=== PATIENT | female | born 1950 | race Caucasian/White ===

== ENCOUNTER 2017-06-07 18:35 | Inpatient (IN) | payer OTHER ==
--- OUTSIDE RECORDS SUMMARY | 2017-06-07 18:37 | XMS REPORT ---
:1950 [facility] Address [address] [place] [address] Care Team Providers Name Role Phone JILLIANMorena Unavailable Unavailable Problems This patient has no known problems. Allergies, Adverse Reactions, Alerts This patient has no known allergies or adverse reactions. Medications This patient has no known medications. Results Test Description Test Time Test Comments Text Results Atomic Results Result Comments BUN 2017-04-18 14:55:00 Test Item Value Reference Range Comments BLOOD UREA NITROGEN (BEAKER) (test zcsi=160) 11 mg/dL 7- [id number] 14:55:00 Test Item Value Reference Range Comments CREATININE (BEAKER) (test 0.65 mg/dL 0.57-1.25 knhi=795) EGFR (BEAKER) (test 91 mL/min/1.73 sq m ESTIMATED GFR IS NOT rlpp=3551) ACCURATE CREATININE CLEARANCE IN PREDICTING GLOMERULAR FILTRATION RATE. ESTIMATED GFR IS NOT APPLICABLE FOR DIALYSIS PATIENTS. BUN AND [id number] 15:59:00 Test Item Value Reference Range Comments BLOOD UREA NITROGEN 10 mg/dL 7-21 (BEAKER) (test ojox=632) CREATININE (BEAKER) (test 0.65 mg/dL 0.57-1.25 sqvw=057) EGFR (BEAKER) (test 91 mL/min/1.73 sq m ESTIMATED GFR IS NOT ovrh=6576) ACCURATE CREATININE CLEARANCE IN PREDICTING GLOMERULAR FILTRATION RATE. ESTIMATED GFR IS NOT APPLICABLE FOR DIALYSIS PATIENTS. [id number] 14:45:00 Test Item Value Reference Range Comments BLOOD UREA NITROGEN (BEAKER) (test jwgo=413) 13 mg/dL 7-21 [id number] 14:45:00 Test Item Value Reference Range Comments CREATININE (BEAKER) (test 0.74 mg/dL 0.57-1.25 bqtg=431) EGFR (BEAKER) (test 79 mL/min/1.73 sq m ESTIMATED GFR IS NOT kahl=2065) ACCURATE CREATININE CLEARANCE IN PREDICTING GLOMERULAR FILTRATION RATE. ESTIMATED GFR IS NOT APPLICABLE FOR DIALYSIS PATIENTS. BUN AND [id number] 14:55:00 Test Item Value Reference Range Comments BLOOD UREA NITROGEN 13 mg/dL 7-21 (BEAKER) (test fyoj=858) CREATININE (BEAKER) (test 0.69 mg/dL 0.57-1.25 kvjk=560) EGFR (BEAKER) (test 85 mL/min/1.73 sq m ESTIMATED GFR IS NOT pjaf=4926) ACCURATE CREATININE CLEARANCE IN PREDICTING GLOMERULAR FILTRATION RATE. ESTIMATED GFR IS NOT APPLICABLE FOR DIALYSIS PATIENTS. [id number] 17:24:00 Test Item Value Reference Range Comments BLOOD UREA NITROGEN (BEAKER) (test ztyg=417) 12 mg/dL 7-21 [id number] 17:24:00 Test Item Value Reference Range Comments CREATININE (BEAKER) (test 0.67 mg/dL 0.57-1.25 jxbp=377) EGFR (BEAKER) (test 89 mL/min/1.73 sq m ESTIMATED GFR IS NOT htlg=4926) ACCURATE CREATININE CLEARANCE IN PREDICTING GLOMERULAR FILTRATION RATE. ESTIMATED GFR IS NOT APPLICABLE FOR DIALYSIS PATIENTS.
[2017-06-07 19:32] LABS: Absolute Lymphocytes (CBC) 1.5 K/uL (0.7-4.9); Absolute Monocytes 0.8 K/uL (0.1-1.3); Absolute Neutrophil 6.7 K/uL (1.8-8.0); Basophils % 0.6 % (0-1.3); Eosinophils % 3.4 % (0-4.4); Hematocrit 47.3 % (36.0-45.0); Lymphocytes % 16.2 % (15.3-44.8); MCH 27.6 pg (27.0-35.0); MCV 85.6 fL (80-100); MPV 8.4 fL (7.6-11.3); Monocytes % 8.3 % (3.3-12.3); RBC Red Blood Cell Count 5.52 M/uL (3.86-4.86)
[2017-06-07 19:37] LABS: Protime INR 1.05
[2017-06-07] MEDS ORDERED: MAGNESIUM SULFATE 1 gm IVPB 1 GM/100 ML BAG IV ONE (19:47)
[2017-06-07 19:49] LABS: Bilirubin Direct 0.1 mg/dL (0-0.2); Bilirubin Total 0.6 mg/dL (0.3-1.2); Magnesium 1.6 mg/dL (1.8-2.5); Protein, Total 7.1 g/dL (6.0-8.3)
[2017-06-07] MEDS ORDERED: ALPRAZOLAM 0.25 MG TABLET PO PRN (19:49)
[2017-06-07] MEDS ORDERED: MORPHINE 4 MG/ML SYR IV PRN (19:49)
[2017-06-07] MEDS ORDERED: ACETAMINOPHEN 500 MG TAB PO PRN (19:49)
[2017-06-07] MEDS ORDERED: ENOXAPARIN 100 MG/ML SYR SQ ONE (19:54)
[2017-06-07] MEDS ORDERED: dilTIAZem HCl 50 MG/10 ML VIAL IV ONE ×2 (19:55→21:06)
[2017-06-07 19:56] LABS: Potassium 2.9 mEq/L (3.6-5.0)
[2017-06-07] MEDS ORDERED: PROPAFENONE HCL 150 MG TAB ONE (20:02)
[2017-06-07] MEDS ORDERED: DILTIAZEM HCL 60 MG TAB ONE (20:05)
--- NOTE | 2017-06-07 20:09 | ER ---
Nurse's Notes [facility] Name: Marlen Santacruz Age: 66 yrs Sex: Female : 1950 Arrival Date: 06/07/2017 Time: 18:36 Bed 2 Private MD: Caleb Patel H Diagnosis: Other chest pain;Atrial fibrillation and flutter;Essential (primary) hypertension;Hypomagnesemia;Hypokalemia;Unspecified combined systolic (congestive) and diastolic (congestive) heart failure;Hypoxemia Presentation: 06/07 18:44 Presenting complaint: Patient states: "this started about an hour ago, felt a little sg pressure in my chest, came and went, i checked my o2 and pulse and it 45 then 55, then at [facility] it was 155. Transition of care: patient was not received from another setting of care. Onset of symptoms was June 07, 2017. Care prior to arrival: None. 18:44 Method Of Arrival: Ambulatory sg 18:44 Acuity: LINDEN 2 tw2 Historical: - Allergies: 18:43 Ciprofloxacin; sg 18:43 Demerol; sg 18:43 Ibuprofen; sg 18:43 Iodine; sg 18:43 Keflex; sg 18:43 Levaquin; sg 18:43 Morphine; sg 18:43 PENICILLINS; sg 18:43 Sporanox; sg - Home Meds: 18:43 Anoro Ellipta 62.5-25 mcg/actuation inhalation dsdv 1 puff once daily [Active]; sg 18:58 Arava 20 mg Oral tab 1 tab once daily [Active]; aspirin 81 mg Oral TbEC 1 tab once tw2 daily [Active]; Atrovent Inhl twice a day [Active]; Atrovent Inhl [Active]; Brovana 15 mcg/2 mL inhalation nebu 2 mL 2 times per day [Active]; budesonide 0.25mg Oral CECX 2 caps twice a day [Active]; clonidine HCl 0.2 mg Oral tab 2 times per day [Active]; duloxetine 30 mg Oral cpDR 2 times per day [Active]; Esbriet 267 mg Oral cap 3 caps after meals [Active]; fluticasone inhalation [Active]; furosemide 40 mg Oral tab 1 tab once daily [Active]; immune globul,gamma(IgG)-sorb-IgA 0 to 50 mcg/mL intravenous every 4 wks [Active]; Lyrica 75 mg in the morning, 50 mg at night Oral [Active]; Magnesium Oxide Oral twice a day [Active]; Methadone 50 mg q6h Oral [Active]; metoprolol tartrate 25 mg Oral tab 1 tab 2 times per day [Active]; Nasonex 50 mcg/actuation Nasal spry once daily [Active]; Mucinex 1,200 mg Oral Ta12 twice a day [Active]; omeprazole 40 mg Oral cpDR 1 cap 2 times per day [Active]; potassium chloride 20 mEq Oral TbTQ 2 times per day [Active]; prednisone 10 mg Oral tab once daily [Active]; Pulmicort Inhl [Active]; sucralfate Oral [Active]; sulfasalazine 500 mg Oral tab 1 tab twice a day [Active]; Tylenol #3 Oral [Active]; valsartan 320 mg Oral tab 1 tab once daily [Active]; Vicodin ES Oral [Active]; - PMHx: 18:43 ADD/ADHD; Arthritis; Atrial Fib; COPD; Depression; GERD; Hypertension; Polyps Colon; sg Polyps Stomach; Rheumatoid Arthritis; Staph Infection Left Great Toe; - PSHx: 18:58 Tonsillectomy; Appendectomy; Cholecystectomy; Right Shoulder Fatty Tumor Removal; tw2 Ganglion Cyst Right Wrist; Hysterectomy; Right Breast Fatty Cyst Removal; Carpal Tunnel Repair; Carpal Tunnel; Right Knee; Back Surgery 2 Rods and 8 bolts placed; Right Rotator Cuff; Hammer Toes; Left Elbow; Right Wrist Plates; Total Knee Replacement Left; - Immunization history:: Adult Immunizations up to date. - Social history:: Smoking status: Patient/guardian denies using tobacco, the patient reports quitting approximately 15 years ago. - Family history:: not pertinent. Screenin:47 Abuse screen: Denies threats or abuse. Nutritional screening: No deficits noted. tw2 Tuberculosis screening: No symptoms or risk factors identified. Fall Risk None identified. Assessment: 18:45 Reassessment: provider notified of ekg Afib with RVR. tw2 18:46 General: Appears in no apparent distress. obese, Behavior is calm, cooperative, tw2 appropriate for age. Pain: Complains of pain in chest Pain does not radiate. Pain began 1 hour ago. Neuro: Level of Consciousness is awake, alert, obeys commands, Oriented to person, place, time, situation. Cardiovascular: Reports chest pain, Heart tones S1 S2 Capillary refill < 3 seconds. Respiratory: Airway is patent Respiratory effort is even, unlabored, Respiratory pattern is regular, symmetrical, Breath sounds are clear bilaterally. GI: Abdomen is round obese, Bowel sounds present X 4 quads. : No signs and/or symptoms were reported regarding the genitourinary system. EENT: No signs and/or symptoms were reported regarding the EENT system. Derm: Skin is intact, is fragile, is thin, Skin temperature is warm. Musculoskeletal: Range of motion: intact in all extremities. 19:46 Reassessment: Patient and/or family updated on plan of care and expected duration. Pain bs1 level reassessed. Patient is alert, oriented x 3, equal unlabored respirations, skin warm/dry/pink. Patient denies chest pain, patient still in A-fib w/ RVR, no apparent distress noted, 2L NC applied. Patient states "I use oxygen PRN at home 3L NC.". 20:46 Reassessment: Patient and/or family updated on plan of care and expected duration. Pain bs1 level reassessed. Patient is alert, oriented x 3, equal unlabored respirations, skin warm/dry/pink. Monitoring vitals, no apparent distress noted. 21:46 Reassessment: No changes from previously documented assessment. Patient and/or family bs1 updated on plan of care and expected duration. Pain level reassessed. Patient is alert, oriented x 3, equal unlabored respirations, skin warm/dry/pink. 22:10 Reassessment: Patient and/or family updated on plan of care and expected duration. Pain bs1 level reassessed. Patient is alert, oriented x 3, equal unlabored respirations, skin warm/dry/pink. Pending transfer to 4th floor. No further needs at this time. Vital Signs: 18:53 BP 124 / 104; Pulse 151; Resp 19; Pulse Ox 97% on R/A; tw2 19:21 Weight 108.86 kg; bs1 19:53 BP 100 / 64; Pulse 68; Pulse Ox 90% on R/A; bs1 20:51 BP 103 / 82; Pulse 110; Resp 21; Temp 97.7(O); Pulse Ox 97% on 2 lpm NC; bs1 21:50 BP 125 / 64; Pulse 71; Resp 18; Pulse Ox 91% on 2 lpm NC; bs1 22:00 BP 116 / 75; Pulse 76; Pulse Ox 96% on 2 lpm NC; bs1 ED Course: 18:36 Patient arrived in ED. rg4 18:36 Amanda TanyaRadhaRachid, DO is Private Physician. rg4 18:38 Jd Roque MD is Attending Physician. joan 18:39 Lynn Almonte RN is Primary Nurse. tw2 18:44 Arm band placed on. sg 18:45 Triage completed. sg 18:47 Bed in low position. Call light in reach. valve mechanic on. Pulse ox on. NIBP on. tw2 18:47 No provider procedures requiring assistance completed. Patient maintains SpO2 tw2 saturation greater than 95% on room air. 19:02 Report given to MANJINDER Moran. tw2 19:04 Primary Nurse role handed off by Lynn Almonte RN tw2 19:04 Inserted saline lock: 22 gauge in left antecubital area, using aseptic technique. Blood ae1 collected. 19:04 Inserted saline lock: 20 gauge in right forearm, using aseptic technique. ae1 19:19 Sandrine Mosley, MANJINDER is Primary Nurse. bs1 19:20 Ester Enriquez MD is Hospitalizing Provider. joan 19:39 Oxygen administration via nasal cannula \\T\\ 2L/min O2 via Pt requested O2. RA O2 sat 95%. aa1 19:59 Notified ED physician of a critical lab result(s). Potassium 2.9. lp1 20:07 X-ray completed. Portable x-ray completed in exam room. Patient tolerated procedure bb2 well. 22:37 Patient admitted, IV remains in place. intact. bs1 Administered Medications: 19:46 Drug: Lovenox 1 mg/kg Route: Sub-Q; Site: left lower abdomen; bs1 22:41 Follow up: Response: No adverse reaction bs1 19:46 Drug: Magnesium Sulfate 1 grams Route: IVPB; Infused Over: 1 hrs; Site: left bs1 antecubital; 22:40 Follow up: IV Status: Completed infusion bs1 19:50 Drug: Diltiazem 20 mg Route: IVP; Site: left antecubital; bs1 22:41 Follow up: Response: No adverse reaction bs1 19:58 Drug: Rythmol 225 mg Route: PO; bs1 22:41 Follow up: Response: No adverse reaction bs1 19:59 Drug: Diltiazem 30 mg Route: PO; bs1 22:40 Follow up: Response: No adverse reaction bs1 20:25 Drug: Aspirin 162 mg Route: PO; bs1 22:40 Follow up: Response: No adverse reaction bs1 20:25 Drug: Magnesium Oxide 400 mg Route: PO; bs1 22:39 Follow up: Response: No adverse reaction bs1 20:25 Drug: Potassium Chloride 40 mEq Route: PO; bs1 22:39 Follow up: Response: No adverse reaction bs1 20:25 Drug: Potassium Chloride 20 mEq Route: IV; Rate: per protocol; Site: right antecubital; bs1 22:38 Follow up: IV Status: Infusion continued upon admission bs1 20:25 Not Given (Duplicate Order): NS 0.9% with KCl 20 mEq/L 1000 ml IV at 125 ml/hr [facility] 20:25 Drug: NS 0.9% with KCl 20 mEq/L 1000 ml Route: IV; Rate: 50 ml/hr; Site: right bs1 antecubital; 22:37 Follow up: IV Status: Infusion continued upon admission bs1 21:04 Drug: Diltiazem 10 mg Route: IVP; Site: right forearm; bs1 22:38 Follow up: Response: No adverse reaction bs1 21:05 Drug: Digoxin 0.5 mg Route: IVP; Site: right forearm; bs1 22:38 Follow up: Response: No adverse reaction bs1 21:22 Drug: Lasix 40 mg Route: IVP; Site: right forearm; bs1 22:38 Follow up: Response: No adverse reaction bs1 Intake: 22:00 PO: 240ml; Total: 240ml. bs1 Output: 22:00 Urine: 200ml (Zuniga); Total: 200ml. bs1 Outcome: 19:21 Decision to Hospitalize by Provider. [facility] 22:36 Admitted to Tele accompanied by tech, via stretcher, with oxygen, with chart, Report bs1 called to MANJINDER Bennett 22:36 Condition: stable 22:46 Patient left the ED. bs1 Signatures: Tyler Fay RN RN sg Kern, Alissa, RN RN aa1 Jd Roque MD MD cha Pena, Laura RN RN lp1 Lynn Almonte RN RN tw2 Fidel Boothe RN RN ae1 Heydi Guerrero rg4 Sandrine Ragland bb2 Sandrine Mosley RN RN bs1 Corrections: (The following items were deleted from the chart) 18:52 18:44 Acuity: LINDEN 3 sg tw2 22:36 21:50 BP 125 / 64; Pulse 71bpm; Resp 18bpm; Pulse Ox 91%; bs1 bs1
--- NOTE | 2017-06-07 20:09 | EDPHYS ---
Physician Documentation [facility] Name: Marlen Santacruz Age: 66 yrs Sex: Female : 1950 Arrival Date: 06/07/2017 Time: 18:36 Bed 2 Private MD: Caleb Ptael H ED Physician Jd Roque HPI: 06/07 19:17 This 66 yrs old Female presents to ER via Ambulatory with complaints of Chest joan Pain, High Blood Pressure. 19:17 The patient or guardian reports chest pain that is located primarily in the substernal joan area. Onset: just prior to arrival. The pain does not radiate. Associated signs and symptoms: The patient has no apparent associated signs or symptoms. The chest pain is described as a heaviness. Duration: The patient or guardian reports a single episode, that is still ongoing. Severity of pain: At its worst the pain was mild in the emergency department the pain is unchanged. The patient has experienced similar episodes in the past, multiple times. Historical: - Allergies: 18:43 Ciprofloxacin; sg 18:43 Demerol; sg 18:43 Ibuprofen; sg 18:43 Iodine; sg 18:43 Keflex; sg 18:43 Levaquin; sg 18:43 Morphine; sg 18:43 PENICILLINS; sg 18:43 Sporanox; sg - Home Meds: 18:43 Anoro Ellipta 62.5-25 mcg/actuation inhalation dsdv 1 puff once daily [Active]; sg 18:58 Arava 20 mg Oral tab 1 tab once daily [Active]; aspirin 81 mg Oral TbEC 1 tab once tw2 daily [Active]; Atrovent Inhl twice a day [Active]; Atrovent Inhl [Active]; Brovana 15 mcg/2 mL inhalation nebu 2 mL 2 times per day [Active]; budesonide 0.25mg Oral CECX 2 caps twice a day [Active]; clonidine HCl 0.2 mg Oral tab 2 times per day [Active]; duloxetine 30 mg Oral cpDR 2 times per day [Active]; Esbriet 267 mg Oral cap 3 caps after meals [Active]; fluticasone inhalation [Active]; furosemide 40 mg Oral tab 1 tab once daily [Active]; immune globul,gamma(IgG)-sorb-IgA 0 to 50 mcg/mL intravenous every 4 wks [Active]; Lyrica 75 mg in the morning, 50 mg at night Oral [Active]; Magnesium Oxide Oral twice a day [Active]; Methadone 50 mg q6h Oral [Active]; metoprolol tartrate 25 mg Oral tab 1 tab 2 times per day [Active]; Nasonex 50 mcg/actuation Nasal spry once daily [Active]; Mucinex 1,200 mg Oral Ta12 twice a day [Active]; omeprazole 40 mg Oral cpDR 1 cap 2 times per day [Active]; potassium chloride 20 mEq Oral TbTQ 2 times per day [Active]; prednisone 10 mg Oral tab once daily [Active]; Pulmicort Inhl [Active]; sucralfate Oral [Active]; sulfasalazine 500 mg Oral tab 1 tab twice a day [Active]; Tylenol #3 Oral [Active]; valsartan 320 mg Oral tab 1 tab once daily [Active]; Vicodin ES Oral [Active]; - PMHx: 18:43 ADD/ADHD; Arthritis; Atrial Fib; COPD; Depression; GERD; Hypertension; Polyps Colon; sg Polyps Stomach; Rheumatoid Arthritis; Staph Infection Left Great Toe; - PSHx: 18:58 Tonsillectomy; Appendectomy; Cholecystectomy; Right Shoulder Fatty Tumor Removal; tw2 Ganglion Cyst Right Wrist; Hysterectomy; Right Breast Fatty Cyst Removal; Carpal Tunnel Repair; Carpal Tunnel; Right Knee; Back Surgery 2 Rods and 8 bolts placed; Right Rotator Cuff; Hammer Toes; Left Elbow; Right Wrist Plates; Total Knee Replacement Left; - Immunization history:: Adult Immunizations up to date. - Social history:: Smoking status: Patient/guardian denies using tobacco, the patient reports quitting approximately 15 years ago. - Family history:: not pertinent. ROS: 19:17 Constitutional: Negative for fever, chills, and weight loss, Eyes: Negative for injury, joan pain, redness, and discharge, ENT: Negative for injury, pain, and discharge, Neck: Negative for injury, pain, and swelling, Respiratory: Negative for shortness of breath, cough, wheezing, and pleuritic chest pain, Abdomen/GI: Negative for abdominal pain, nausea, vomiting, diarrhea, and constipation, Back: Negative for injury and pain, : Negative for injury, bleeding, discharge, and swelling, MS/Extremity: Negative for injury and deformity, Skin: Negative for injury, rash, and discoloration, Neuro: Negative for headache, weakness, numbness, tingling, and seizure, Psych: Negative for depression, anxiety, suicide ideation, homicidal ideation, and hallucinations, Allergy/Immunology: Negative for hives, rash, and allergies, Endocrine: Negative for neck swelling, polydipsia, polyuria, polyphagia, and marked weight changes, Hematologic/Lymphatic: Negative for swollen nodes, abnormal bleeding, and unusual bruising. 19:17 Cardiovascular: Positive for chest pain, palpitations. Exam: 19:17 Constitutional: This is a well developed, well nourished patient who is awake, alert, joan and in no acute distress. Head/Face: Normocephalic, atraumatic. Eyes: Pupils equal round and reactive to light, extra-ocular motions intact. Lids and lashes normal. Conjunctiva and sclera are non-icteric and not injected. Cornea within normal limits. Periorbital areas with no swelling, redness, or edema. ENT: Nares patent. No nasal discharge, no septal abnormalities noted. Tympanic membranes are normal and external auditory canals are clear. Oropharynx with no redness, swelling, or masses, exudates, or evidence of obstruction, uvula midline. Mucous membranes moist. Neck: Trachea midline, no thyromegaly or masses palpated, and no cervical lymphadenopathy. Supple, full range of motion without nuchal rigidity, or vertebral point tenderness. No Meningismus. Chest/axilla: Normal chest wall appearance and motion. Nontender with no deformity. No lesions are appreciated. Respiratory: Lungs have equal breath sounds bilaterally, clear to auscultation and percussion. No rales, rhonchi or wheezes noted. No increased work of breathing, no retractions or nasal flaring. Abdomen/GI: Soft, non-tender, with normal bowel sounds. No distension or tympany. No guarding or rebound. No evidence of tenderness throughout. Back: No spinal tenderness. No costovertebral tenderness. Full range of motion. Female : Normal external genitalia. Skin: Warm, dry with normal turgor. Normal color with no rashes, no lesions, and no evidence of cellulitis. MS/ Extremity: Pulses equal, no cyanosis. Neurovascular intact. Full, normal range of motion. Neuro: Awake and alert, GCS 15, oriented to person, place, time, and situation. Cranial nerves II-XII grossly intact. Motor strength 5/5 in all extremities. Sensory grossly intact. Cerebellar exam normal. Normal gait. Psych: Awake, alert, with orientation to person, place and time. Behavior, mood, and affect are within normal limits. 19:17 Cardiovascular: Rate: tachycardic, Rhythm: irregularly irregular, Pulses: Pulses are 4+ in bilateral radial, brachial, femoral, popliteal, posterior tibial and and dorsalis pedis arteries.. Heart sounds: normal, Edema: is not appreciated, JVD: is not appreciated. Vital Signs: 18:53 BP 124 / 104; Pulse 151; Resp 19; Pulse Ox 97% on R/A; tw2 19:21 Weight 108.86 kg; bs1 19:53 BP 100 / 64; Pulse 68; Pulse Ox 90% on R/A; bs1 20:51 BP 103 / 82; Pulse 110; Resp 21; Temp 97.7(O); Pulse Ox 97% on 2 lpm NC; bs1 21:50 BP 125 / 64; Pulse 71; Resp 18; Pulse Ox 91% on 2 lpm NC; bs1 22:00 BP 116 / 75; Pulse 76; Pulse Ox 96% on 2 lpm NC; bs1 MDM: 18:[address] [facility] 19:19 Data reviewed: vital signs, nurses notes, lab test result(s), EKG, radiologic studies, joan plain films. 06/07 18:54 Order name: Basic Metabolic Panel ae06/07 18:54 Order name: BNP 1 06/07 18:54 Order name: CBC with Diff 06/07 18:54 Order name: Ckmb ae06/07 18:54 Order name: CPK 06/07 18:54 Order name: LFT's ae06/07 18:54 Order name: Magnesium 06/07 18:54 Order name: PT-INR 06/07 18:54 Order name: Ptt, Activated 06/07 18:54 Order name: Troponin (emerg Dept Use Only) ae1 06/07 19:17 Order name: TSH [facility] 06/07 19:41 Order name: CBC with Automated Diff; Complete Time: 19:49 EDMS 06/07 19:42 Order name: Protime (+INR); Complete Time: 19:49 EDMS 06/07 19:42 Order name: PTT, Activated Partial Thromb; Complete Time: 19:49 EDMS 06/07 18:54 Order name: XRAY Chest (1 view) ae 06/07 19:43 Order name: Basic Metabolic Panel EDND 06/07 19:49 Order name: Liver (Hepatic) Function EDND 06/07 19:49 Order name: Creatine Phosphokinase EDND 06/07 19:49 Order name: Magnesium EDND 06/07 19:49 Order name: Troponin (Emerg Dept Use Only); Complete Time: 19:58 EDMS 06/07 19:53 Order name: CKMB Creatine Kinase MB EDND 06/07 19:53 Order name: BNP B-Type Natriuretic Peptide; Complete Time: 19:58 [facility] 06/07 20:17 Order name: RAD; Complete Time: 20:24 EDMS 06/07 20:38 Order name: Lipid Profile; Complete Time: 20:47 EDND 06/07 20:43 Order name: Urine Dipstick--Ancillary (enter results) mt 06/07 20:47 Order name: Lipase joan 06/07 20:49 Order name: Thyroid Stimulating Hormone EDND 06/07 21:08 Order name: Lipase [facility] 06/07 21:22 Order name: T4 Free [facility] 06/07 21:29 Order name: Urine Dipstick-Ancillary [facility] 06/07 18:54 Order name: EKG; Complete Time: 20:06 1 06/07 18:54 Order name: Cardiac monitoring; Complete Time: 19:00 ae1 06/07 18:54 Order name: EKG - Nurse/Tech; Complete Time: 19:00 ae1 06/07 18:54 Order name: IV Saline Lock; Complete Time: 19:00 ae1 06/07 18:54 Order name: Labs collected and sent; Complete Time: 19:00 ae1 06/07 18:54 Order name: O2 Per Protocol; Complete Time: 19:00 ae1 06/07 18:54 Order name: O2 Sat Monitoring; Complete Time: 19:00 ae1 06/07 18:54 Order name: Urine Dipstick-Ancillary (obtain specimen); Complete Time: 20:53 ae 06/07 20:47 Order name: Zuniga; Complete Time: 21:21 joan Administered Medications: 19:46 Drug: Lovenox 1 mg/kg Route: Sub-Q; Site: left lower abdomen; bs1 22:41 Follow up: Response: No adverse reaction bs1 19:46 Drug: Magnesium Sulfate 1 grams Route: IVPB; Infused Over: 1 hrs; Site: left bs1 antecubital; 22:40 Follow up: IV Status: Completed infusion bs1 19:50 Drug: Diltiazem 20 mg Route: IVP; Site: left antecubital; bs1 22:41 Follow up: Response: No adverse reaction bs1 19:58 Drug: Rythmol 225 mg Route: PO; bs1 22:41 Follow up: Response: No adverse reaction bs1 19:59 Drug: Diltiazem 30 mg Route: PO; bs1 22:40 Follow up: Response: No adverse reaction bs1 20:25 Drug: Aspirin 162 mg Route: PO; bs1 22:40 Follow up: Response: No adverse reaction bs1 20:25 Drug: Magnesium Oxide 400 mg Route: PO; bs1 22:39 Follow up: Response: No adverse reaction bs1 20:25 Drug: Potassium Chloride 40 mEq Route: PO; bs1 22:39 Follow up: Response: No adverse reaction bs1 20:25 Drug: Potassium Chloride 20 mEq Route: IV; Rate: per protocol; Site: right antecubital; bs1 22:38 Follow up: IV Status: Infusion continued upon admission bs1 20:25 Not Given (Duplicate Order): NS 0.9% with KCl 20 mEq/L 1000 ml IV at 125 ml/hr joan continuous 20:25 Drug: NS 0.9% with KCl 20 mEq/L 1000 ml Route: IV; Rate: 50 ml/hr; Site: right bs1 antecubital; 22:37 Follow up: IV Status: Infusion continued upon admission bs1 21:04 Drug: Diltiazem 10 mg Route: IVP; Site: right forearm; bs1 22:38 Follow up: Response: No adverse reaction bs1 21:05 Drug: Digoxin 0.5 mg Route: IVP; Site: right forearm; bs1 22:38 Follow up: Response: No adverse reaction bs1 21:22 Drug: Lasix 40 mg Route: IVP; Site: right forearm; bs1 22:38 Follow up: Response: No adverse reaction bs1 Disposition: 06/07/17 19:21 Hospitalization ordered by Ester Enriquez for Inpatient Admission. Preliminary diagnosis are Other chest pain, Atrial fibrillation and flutter, Essential (primary) hypertension, Hypomagnesemia, Hypokalemia, Unspecified combined systolic (congestive) and diastolic (congestive) heart failure, Hypoxemia. - Bed requested for Telemetry/MedSurg (Inpatient). - Status is Inpatient Admission. bs1 - Condition is Stable. - Problem is new. - Symptoms have improved. UTI on Admission? No Signatures: Dispatcher [employer] EDMS Sarika Baca, RN RN dw Tyler Fay RN RN Jd Whitney MD MD cha Wise, Tara RN RN tw2 Fidel Boothe RN RN ae1 Sandrine Mosley, RN RN bs1
--- NOTE | 2017-06-07 20:17 | RAD REPORT ---
EXAM DESCRIPTION: RAD - Chest Single View - 06/07/2017 8:01 pm CLINICAL HISTORY: Chest pain. COMPARISON: 03/05/2017, 12/23/2016 FINDINGS: Portable technique limits examination quality. Moderate bilateral pulmonary opacities are present most compatible with pulmonary edema. The heart is mildly enlarged in size. No displaced fractures.Hardware is present in the cervical spine. IMPRESSION: Moderate CHF/ volume overload pattern.
[2017-06-07] MEDS ORDERED: MAGNESIUM OXIDE 400 MG TAB ONE (20:30)
[2017-06-07] MEDS ORDERED: POTASSIUM CL SA 10 MEQ TAB PO ONE (20:30)
[2017-06-07] MEDS ORDERED: ASPIRIN EC 81 MG TAB PO ONE (20:30)
[2017-06-07] MEDS ORDERED: KCL 20 MEQ/100 mL IVPB 20 MEQ/100 ML BAG IV ONE (20:31)
[2017-06-07] MEDS ORDERED: NS KCL 20MEQ 1,000 ML IV ONE (20:31)
[2017-06-07 20:48] LABS: Thyroid Stimulating Hormone 6.73 uIU/mL (0.34-5.60)
[2017-06-07] MEDS ORDERED: METOPROLOL TAR 50 MG TAB PO SCH (21:00)
[2017-06-07] MEDS: PROPAFENONE HCL 150 MG TAB PO SCH (21:00)
[2017-06-07] MEDS ORDERED: SULFASALAZINE 500 MG E.C. TAB PO SCH (21:00)
[2017-06-07] MEDS ORDERED: BUDESONIDE 0.25 MG/2 ML NEB IH SCH (21:00)
[2017-06-07] MEDS ORDERED: DIGOXIN 0.25 MG/ML AMP ONE (21:05)
[2017-06-07 21:28] LABS: Urine Blood TRACE (NEG); Urine Glucose NEGATIVE (NEG); Urine Protein NEGATIVE (NEG); Urine Specific Gravity <1.005 (1.005-1.030)
[2017-06-07] MEDS ORDERED: FUROSEMIDE 40 MG/4 ML VIAL ONE (21:34)
[2017-06-07] MEDS: cloNIDine HCl 0.1 MG TAB PO SCH (23:09)
[2017-06-07] MEDS: DULOXETINE 30 MG CAP PO SCH (23:09)
[2017-06-08 00:01] LABS: CKMB Creatine Kinase MB 3.1 ng/ml (0.3-4.0)
[2017-06-08 00:29] VITALS: BMI 38.2
[2017-06-08] MEDS ORDERED: FENTANYL CITR 100 MCG/2 ML IV PRN (00:52)
[2017-06-08 00:57] VITALS: O2SAT 97
--- NOTE | 2017-06-08 05:58 | EKG ---
Test Date: 2017-06-08 Test Time: 01:54:49 [employer]vage Machine Operator: RT Escobedo MEASUREMENT RESULTS: Intervals: Rate: 46 LA: 124 QRSD: 86 QT: 414 QTc: 362 [place]: P: 17 LA: 124 QRS: 4 T: 125 INTERPRETIVE STATEMENTS: Marked sinus bradycardia with sinus arrhythmia ST & T wave abnormality, consider anterolateral ischemia Abnormal ECG Compared to ECG 03/06/2017 01:17:22 ST (T wave) deviation now present T-wave abnormality no longer present Possible ischemia still present Electronically Signed On 06-08-17 05:58:01 CDT by Jackson Cooper
[2017-06-08 07:22] LABS: CKMB Creatine Kinase MB 2.7 ng/ml (0.3-4.0)
--- NOTE | 2017-06-08 07:41 | P.HP ---
Certification for Inpatient Patient admitted to: Inpatient With expected LOS: >2 Midnights Patient will require the following post-hospital care: None Practitioner: I am a practitioner with admitting privileges, knowledge of patient current condition, hospital course, and medical plan of care. Services: Services provided to patient in accordance with Admission requirements found in Title 42 Section 412.3 of the Code of Federal Regulations Patient History Date of Service: 06/07/17 Reason for admission: Atrial fibrillation with rapid ventricular response History of Present Illness: Patient is a 66-year-old female who came into the hospital with atrial fibrillation with rapid ventricular response. She was there few months prior with similar complaints. At that time she was given beta-blockers along with her oral Rythmol and Cardizem. Patient's rate was finally controlled. She was actually becoming severely bradycardic and beta-blockers were discontinued. Patient was discharged on Rythmol and Cardizem. In the emergency room today she was given IV Cardizem x2 doses along with IV digoxin. Patient came out of atrial fibrillation with rapid ventricular response and actually has had sinus pauses throughout the evening. Cardiology was notified and Cardizem was discontinued. Will await Cardiology input tomorrow morning regarding further plan of care. Continue with antiplatelet therapy and will see if patient would benefit from anti coagulation. Allergies cephalexin monohydrate [From Keflex] Allergy (Intermediate, Verified 06/07/17 22 :04) Itching/Hives/Rash iodine [Iodine] Allergy (Intermediate, Verified 06/07/17 22:04) Itching/Hives/Rash itraconazole [From Sporanox] Allergy (Intermediate, Verified 06/07/17 22:04) Itching/Hives/Rash levofloxacin [From Levaquin] Allergy (Intermediate, Verified 06/07/17 22:04) Itching/Hives/Rash meperidine HCl [From Demerol] Allergy (Intermediate, Verified 06/07/17 22:04) Itching/Hives/Rash Penicillins Allergy (Intermediate, Verified 06/07/17 22:04) Itching/Hives/Rash morphine Allergy (Mild, Verified 06/07/17 22:04) Itching/Hives/Rash ciprofloxacin Allergy (Verified 06/07/17 22:04) Itching/Hives/Rash ibuprofen Allergy (Verified 06/07/17 22:04) Itching/Hives/Rash Home Medications: Sulfasalazine [Sulfazine] 2 tab PO BID 09/10/11 Arformoterol Tartrate [Brovana] 2 puff IH DAILY #1 11/27/16 Aspirin [Adult Low Dose Aspirin EC] 81 mg PO DAILY #30 11/27/16 Budesonide [Pulmicort*] 2 puff IH BID #1 11/27/16 Clonidine HCl 0.2 mg PO BID #60 11/27/16 Duloxetine HCl 30 mg PO BID #60 11/27/16 Guaifenesin [Mucinex] 1,200 mg PO DAILY #14 11/27/16 Ipratropium Mdi [Atrovent Hf Inhaler*] 1 puff IH DAILY #1 11/27/16 Leflunomide [Arava] 20 mg PO DAILY #30 11/27/16 Mometasone Furoate [Nasonex] 2 spr NS DAILY #1 11/27/16 Pirfenidone [Esbriet] 3 cap PO TIDWM #120 11/27/16 Potassium Chloride [Klor-Con M20] 1 tab PO BID #60 11/27/16 Prednisone [Deltasone*] 10 mg PO DAILY #30 11/27/16 Codeine/APAP [Tylenol #3*] 1 tab PO TIDP PRN 03/06/17 Diltiazem HCl [Cartia Xt] 240 mg PO DAILY 03/06/17 Etanercept [Enbrel] 25 mg SQ SEECOM 03/06/17 Hydrochlorothiazide 25 mg PO DAILY 03/06/17 Hydrocodone Bit/Acetaminophen [[place] 10-325 Tablet] 1 tab PO TIDP PRN 03/06/17 Propafenone [Rythmol*] 225 mg PO TID #60 tab 03/06/17 Amitriptyline HCl [Amitriptyline HCl] 1 tab PO BID 06/07/17 Hydrochlorothiazide [Hydrochlorothiazide] 1 tab PO DAILY 06/07/17 Omeprazole [Prilosec] 40 mg PO BID 06/07/17 Umeclidinium Brm/Vilanterol Tr [Anoro Ellipta 62.5-25 Mcg INH] 1 cap IH BEDTIME 06/07/17 - Past Medical/Surgical History Has patient received pneumonia vaccine in the past: Yes Diabetic: No -: Rheumatoid Arthritis -: Interstitial Lung Disease -: Sleep Apnea -: Lichen Plantas -: osteopenia -: High Cholesterol -: COPD -: Afib -: Bronchiectis -: Hiatal Hernia -: GERD -: depression -: Tonsilectomy -: Appendectomy, Kelle -: Hysterectomy -: Multiple ganglion cyst removal -: Knee Replacement rohini -: Tendon repair bilateral wrist -: Knuckle removal in toes on R foot/hands -: Multiple bursectomy excision - Family History Sister Medical History: Hypertension, Lung disease, Other (see notes) Notes: rotoscoliasis, sleep apnea, hyperlipidemia Brother Medical History: Hypertension, Diabetes, Other (see notes) Notes: gout, hyperlipidemia Mother Medical History: Hypertension, Cancer Notes: klatskin tumor Father Medical History: Heart disease, Hypertension, Lung disease, Diabetes, Cancer, Other (see notes) Notes: lung cancer, gout - Social History Smoking Status: Former smoker CD- Drugs: No Caffeine use: Yes Place of Residence: Home Review of Systems 10-point ROS is otherwise unremarkable Physical Examination - Vital Signs Temperature: 97.4 F Blood Pressure: 103/54 Pulse: 58 Respirations: 20 Pulse Ox (%): 97 - Physical Exam General: Alert, In no apparent distress, Oriented x3 HEENT: Atraumatic, PERRLA, Mucous membr. moist/pink, EOMI, Sclerae nonicteric Neck: Supple, 2+ carotid pulse no bruit, No LAD, Without JVD or thyroid abnormality Respiratory: Clear to auscultation bilaterally, Normal air movement Cardiovascular: Irregular heart rate/rhythm, Systolic murmur Gastrointestinal: Normal bowel sounds, Soft and benign, Non-distended, No tenderness, No rebound, No guarding Musculoskeletal: No clubbing, No swelling, No tenderness Integumentary: No rashes Neurological: Normal gait, Normal speech, Normal strength at 5/5 x4 extr, Normal tone, Sensation intact, Cranial nerves 3-12 intact, Normal affect Lymphatics: No axilla or inguinal lymphadenopathy - Studies Laboratory Data (last 24 hrs) 06/07/17 18:54: PT Cancelled, INR Cancelled, APTT Cancelled 06/07/17 18:54: WBC Cancelled, Hgb Cancelled, Hct Cancelled, Plt Count Cancelled 06/07/17 18:54: B-Natriuretic Peptide Cancelled 06/07/17 18:54: Sodium Cancelled, Potassium Cancelled, BUN Cancelled, Creatinine Cancelled, Glucose Cancelled, Magnesium Cancelled, Total Bilirubin Cancelled, AST Cancelled, ALT Cancelled, Alkaline Phosphatase Cancelled 06/07/17 18:50: Triglycerides 260 H, Cholesterol 246 H, HDL Cholesterol 51, Cholesterol/HDL Ratio 4.82 06/07/17 18:50: PT 12.4, INR 1.05, APTT 32.8 06/07/17 18:50: WBC 9.4, Hgb 15.2 H, Hct 47.3 H, Plt Count 237 06/07/17 18:50: B-Natriuretic Peptide 260 H 06/07/17 18:50: Sodium 139, Potassium 2.9 L*, BUN 12, Creatinine 0.72, Glucose 122 H, Magnesium 1.6 L, Total Bilirubin 0.6, AST 26, ALT 16, Alkaline Phosphatase 71 06/07/17 18:20: Lipase 20 L Assessment & Plan - Problems (Diagnosis) (1) Sinus pause Current Visit: Yes Status: Acute (2) Atrial fibrillation with rapid ventricular response Onset Date: 12/23/16 Current Visit: No Status: Acute (3) COPD (chronic obstructive pulmonary disease) Current Visit: No Status: Acute (4) COPD exacerbation Onset Date: 02/26/16 Current Visit: No Status: Acute (5) Chronic pain Current Visit: No Status: Chronic Qualifiers: (6) Gastroesophageal reflux disease Onset Date: 10/21/16 Current Visit: No Status: Chronic Qualifiers: (7) Hypertension Onset Date: 10/21/16 Current Visit: No Status: Chronic Qualifiers: (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 Continue with Rythmol 2. Cardiology consultation 3. Patient having sinus pauses may benefit from additional intervention per Cardiology 4. Discontinue Cardizem 5. Patient with a history of rheumatoid and will continue with immunosuppressants 6. Monitor labs 7. Replace potassium and magnesium 8. Serial troponins 9. GI and DVT prophylax Discharge Plan: Home Plan to discharge in: Greater than 2 days - Advance Directives Does patient have a Living Will: Yes Does patient have a Durable POA for Healthcare: Yes - Code Status/Comfort Care Code Status Assessed: Yes Code Status: Full Code Critical Care: No Time Spent Managing PTS Care (In Minutes): 50
[2017-06-08] MEDS ORDERED: BUDESONIDE 0.25 MG/2 ML NEB IH SCH (08:00)
[2017-06-08] MEDS ORDERED: ARFORMOTEROL TARTRATE 15 MCG/2 ML VIAL.NEB IH SCH (09:00)
[2017-06-08] MEDS ORDERED: DILTIAZEM HCL 120 MG SR CAP PO SCH (09:00)
[2017-06-08] MEDS ORDERED: ENOXAPARIN 40 MG/0.4 ML SQ SCH (09:00)
[2017-06-08] MEDS ORDERED: SULFASALAZINE 500 MG E.C. TAB PO SCH (09:00)
[2017-06-08] MEDS ORDERED: predniSONE 10 MG TAB PO SCH (09:00)
[2017-06-08] MEDS ORDERED: LISINOPRIL 10 MG TAB PO SCH (09:00)
[2017-06-08] MEDS ORDERED: ASPIRIN EC 81 MG TAB PO SCH (09:00)
[2017-06-08] MEDS: PROPAFENONE HCL 150 MG TAB PO SCH (09:25)
[2017-06-08] MEDS: DULOXETINE 30 MG CAP PO SCH (09:25)
[2017-06-08] MEDS: cloNIDine HCl 0.1 MG TAB PO SCH (09:25)
--- NOTE | 2017-06-08 10:26 | EKG ---
Test Date: 2017-06-07 Test Time: 17:43:04 [employer] Caramel Operator: KODAK MEASUREMENT RESULTS: Intervals: Rate: 162 ID: QRSD: [id number] QT: 300 QTc: 492 [place]: P: ID: QRS: [id number] T: 133 INTERPRETIVE STATEMENTS: Atrial fibrillation with rapid ventricular response ST & T wave abnormality, consider lateral ischemia Abnormal ECG Compared to ECG 06/07/2017 17:42:24 Ventricular premature complex(es) no longer present ST (T wave) deviation still present Possible ischemia still present Electronically Signed On 06-08-17 10:23:54 CDT by Jarod Franco
--- NOTE | 2017-06-08 10:26 | EKG ---
Test Date: 2017-06-07 Test Time: 17:42:24 Conference Assistant: KODAK MEASUREMENT RESULTS: Intervals: Rate: 154 [place]: QRSD: 82 QT: 332 QTc: 531 [place]: P: ND: QRS: 13 T: -50 INTERPRETIVE STATEMENTS: Atrial fibrillation with rapid ventricular response with premature ventricular or aberrantly conducted complexes ST & T wave abnormality, consider inferior ischemia Abnormal ECG Compared to ECG 03/06/2017 01:17:22 Ventricular premature complex(es) now present ST (T wave) deviation now present Sinus bradycardia no longer present T-wave abnormality no longer present Possible ischemia still present Electronically Signed On 06-08-17 10:23:56 CDT by Jarod Franco
--- NOTE | 2017-06-08 10:36 | ECHO ---
HEIGHT: 5 ft 5 in WEIGHT: 229 lb 9.6 oz DATE OF STUDY: 06-08-[address]: Jd Roque MD 2-DIMENSIONAL: YES M.MODE: YES DOPPLER: YES COLOR FLOW: YES TDS: NO PORTABLE: NO DEFINITY: NO BUBBLE STUDY: NO DIAGNOSIS: ATRIAL FIBRILLATION CARDIAC HISTORY: CATHERIZATION: NO SURGERY: NO PROSTHETIC VALVE: NO PACEMAKER: NO MEASUREMENTS (cm) DIASTOLIC (NORMALS) SYSTOLIC (NORMALS) IVSd 1.0 (0.6-1.2) LA Diam 4.5 (1.9-4.0) LVEF 66% LVIDd 4.2 (3.5-5.7) LVIDs 2.7 (2.0-3.5) %FS 36% LVPWd 0.9 (0.6-1.2) Ao Diam 3.4 (2.0-3.7) 2 DIMENSIONAL ASSESSMENT: RIGHT ATRIUM: NORMAL LEFT ATRIUM: DILATED RIGHT VENTRICLE: NORMAL LEFT VENTRICLE: NORMAL TRICUSPID VALVE: NORMAL MITRAL VALVE: MITRAL ANNULAR CALCIFICATION PULMONIC VALVE: NORMAL AORTIC VALVE: SCLEROTIC PERICARDIAL EFFUSION: NONE AORTIC ROOT: NORMAL LEFT VENTRICULAR WALL MOTION: NORMAL DOPPLER/COLOR FLOW: MILD TRICUSPID REGURGITATION COMMENTS: LEFT ATRIAL ENLARGEMENT. AORTIC SCLEROSIS. MITRAL ANNULAR CALCIFICATION. NORMAL LEFT VENTRICULAR SIZE AND FUNCTION. TECHNOLOGIST: Steve HIGH RD
[2017-06-08 12:16] VITALS: BP 111/58; TEMP 96.9
--- NOTE | 2017-06-08 13:01 | P.SSS ---
Patient History Date of Service: 06/08/17 Reason for admission: Atrial fibrillation with rapid ventricular response History of Present Illness: Patient is a 66-year-old female who came into the hospital with atrial fibrillation with rapid ventricular response. She was there few months prior with similar complaints. At that time she was given beta-blockers along with her oral Rythmol and Cardizem. Patient's rate was finally controlled. She was actually becoming severely bradycardic and beta-blockers were discontinued. Patient was discharged on Rythmol and Cardizem. In the emergency room today she was given IV Cardizem x2 doses along with IV digoxin. Patient came out of atrial fibrillation with rapid ventricular response and actually has had sinus pauses throughout the evening. Cardiology was notified and Cardizem was discontinued. Will await Cardiology input tomorrow morning regarding further plan of care. Continue with antiplatelet therapy and will see if patient would benefit from anti coagulation. Allergies cephalexin monohydrate [From Keflex] Allergy (Intermediate, Verified 06/07/17 22 :04) Itching/Hives/Rash iodine [Iodine] Allergy (Intermediate, Verified 06/07/17 22:04) Itching/Hives/Rash itraconazole [From Sporanox] Allergy (Intermediate, Verified 06/07/17 22:04) Itching/Hives/Rash levofloxacin [From Levaquin] Allergy (Intermediate, Verified 06/07/17 22:04) Itching/Hives/Rash meperidine HCl [From Demerol] Allergy (Intermediate, Verified 06/07/17 22:04) Itching/Hives/Rash Penicillins Allergy (Intermediate, Verified 06/07/17 22:04) Itching/Hives/Rash morphine Allergy (Mild, Verified 06/07/17 22:04) Itching/Hives/Rash ciprofloxacin Allergy (Verified 06/07/17 22:04) Itching/Hives/Rash ibuprofen Allergy (Verified 06/07/17 22:04) Itching/Hives/Rash Home Medications: Sulfasalazine [Sulfazine] 2 tab PO BID 09/10/11 Arformoterol Tartrate [Brovana] 2 puff IH DAILY #1 11/27/16 Aspirin [Adult Low Dose Aspirin EC] 81 mg PO DAILY #30 11/27/16 Budesonide [Pulmicort*] 2 puff IH BID #1 11/27/16 Clonidine HCl 0.2 mg PO BID #60 11/27/16 Duloxetine HCl 30 mg PO BID #60 11/27/16 Guaifenesin [Mucinex] 1,200 mg PO DAILY #14 11/27/16 Ipratropium Mdi [Atrovent Hf Inhaler*] 1 puff IH DAILY #1 11/27/16 Leflunomide [Arava] 20 mg PO DAILY #30 11/27/16 Mometasone Furoate [Nasonex] 2 spr NS DAILY #1 11/27/16 Pirfenidone [Esbriet] 3 cap PO TIDWM #120 11/27/16 Potassium Chloride [Klor-Con M20] 1 tab PO BID #60 11/27/16 Prednisone [Deltasone*] 10 mg PO DAILY #30 11/27/16 Codeine/APAP [Tylenol #3*] 1 tab PO TIDP PRN 03/06/17 Diltiazem HCl [Cartia Xt] 240 mg PO DAILY 03/06/17 Etanercept [Enbrel] 25 mg SQ SEECOM 03/06/17 Hydrochlorothiazide 25 mg PO DAILY 03/06/17 Hydrocodone Bit/Acetaminophen [[place] 10-325 Tablet] 1 tab PO TIDP PRN 03/06/17 Propafenone [Rythmol*] 225 mg PO TID #60 tab 03/06/17 Amitriptyline HCl 1 tab PO BID 06/07/17 Hydrochlorothiazide 1 tab PO DAILY 06/07/17 Omeprazole [Prilosec] 40 mg PO BID 06/07/17 Umeclidinium Brm/Vilanterol Tr [Anoro Ellipta 62.5-25 Mcg INH] 1 cap IH BEDTIME 06/07/17 - Past Medical/Surgical History Has patient received pneumonia vaccine in the past: Yes Diabetic: No -: Rheumatoid Arthritis -: Interstitial Lung Disease -: Sleep Apnea -: Lichen Plantas -: osteopenia -: High Cholesterol -: COPD -: Afib -: Bronchiectis -: Hiatal Hernia -: GERD -: depression -: Tonsilectomy -: Appendectomy, Kelle -: Hysterectomy -: Multiple ganglion cyst removal -: Knee Replacement rohini -: Tendon repair bilateral wrist -: Knuckle removal in toes on R foot/hands -: Multiple bursectomy excision - Family History Sister -: Hypertension, Lung disease, Other (see notes) Notes: rotoscoliasis, sleep apnea, hyperlipidemia Brother -: Hypertension, Diabetes, Other (see notes) Notes: gout, hyperlipidemia Mother -: Hypertension, Cancer Notes: klatskin tumor Father -: Heart disease, Hypertension, Lung disease, Diabetes, Cancer, Other (see notes ) Notes: lung cancer, gout - Social History Smoking Status: Former smoker Alcohol use: No CD- Drugs: No Caffeine use: Yes Place of Residence: Home Review of Systems General: As per HPI Physical Examination - Vital Signs Temperature: 96.9 F Blood Pressure: 111/58 Pulse: 50 Respirations: 17 Pulse Ox (%): 96 - Physical Exam General: Alert, In no apparent distress HEENT: Atraumatic, PERRLA, Mucous membr. moist/pink, EOMI, Sclerae nonicteric Neck: Supple, 2+ carotid pulse no bruit, No LAD, Without JVD or thyroid abnormality Respiratory: Clear to auscultation bilaterally, Normal air movement Cardiovascular: Regular rate/rhythm, Normal S1 S2 Gastrointestinal: Normal bowel sounds, No tenderness Musculoskeletal: No tenderness Integumentary: No rashes Neurological: Normal gait, Normal speech, Normal strength at 5/5 x4 extr, Normal tone, Normal affect Lymphatics: No axilla or inguinal lymphadenopathy - Studies Laboratory Data (last 24 hrs) 06/07/17 18:54: PT Cancelled, INR Cancelled, APTT Cancelled 06/07/17 18:54: WBC Cancelled, Hgb Cancelled, Hct Cancelled, Plt Count Cancelled 06/07/17 18:54: B-Natriuretic Peptide Cancelled 06/07/17 18:54: Sodium Cancelled, Potassium Cancelled, BUN Cancelled, Creatinine Cancelled, Glucose Cancelled, Magnesium Cancelled, Total Bilirubin Cancelled, AST Cancelled, ALT Cancelled, Alkaline Phosphatase Cancelled 06/07/17 18:50: Triglycerides 260 H, Cholesterol 246 H, HDL Cholesterol 51, Cholesterol/HDL Ratio 4.82 06/07/17 18:50: PT 12.4, INR 1.05, APTT 32.8 06/07/17 18:50: WBC 9.4, Hgb 15.2 H, Hct 47.3 H, Plt Count 237 06/07/17 18:50: B-Natriuretic Peptide 260 H 06/07/17 18:50: Sodium 139, Potassium 2.9 L*, BUN 12, Creatinine 0.72, Glucose 122 H, Magnesium 1.6 L, Total Bilirubin 0.6, AST 26, ALT 16, Alkaline Phosphatase 71 06/07/17 18:20: Lipase 20 L - Diagnosis (Problem(s)) (1) Atrial fibrillation with rapid ventricular response Onset Date: 12/23/16 Current Visit: No Status: Resolved (2) COPD (chronic obstructive pulmonary disease) Current Visit: No Status: Chronic Qualifiers: COPD type: chronic bronchitis (3) Gastroesophageal reflux disease Onset Date: 10/21/16 Current Visit: No Status: Chronic Qualifiers: Esophagitis presence: with esophagitis Qualified Code(s): K21.0 - Gastro- esophageal reflux disease with esophagitis (4) Pulmonary fibrosis Onset Date: 10/21/16 Current Visit: No Status: Chronic (5) Rheumatoid arthritis Onset Date: 10/21/16 Current Visit: No Status: Chronic Qualifiers: Rheumatoid arthritis location: unspecified site Rheumatoid factor presence : unspecified presence Qualified Code(s): M06.9 - Rheumatoid arthritis, unspecified (6) Hypertension Onset Date: 10/21/16 Current Visit: No Status: Chronic Qualifiers: Hypertension type: essential hypertension Treatment Summary: Overall during the hospital stay patient remained stable Patient was initially admitted to the hospital for AFib with RVR. In the emergency room she was given IV Cardizem x2 doses along with IV digoxin. Patient came out of atrial fibrillation with rapid ventricular response and actually has had sinus pauses throughout the evening. Cardiology was notified and Cardizem was discontinued. At that point cardiology recommended that patient get an echocardiogram done here in the hospital and be continued on her Rythmol. Patient was continued on all her home medication here in the hospital and had no further episodes of AFib with RVR along with sinus pauses. Echocardiogram was done here in the hospital which was within normal limits. At that point a decision was made to discharge patient home and have her follow up with cardiology office in about 1-2 days for a Holter monitor. After the Holter monitor patient will be referred to a EP senior mainframe developer in her [place] for a possible ablation. Patient was thus discharged home under stable condition and was asked to resume her home medication as prescribed. - Disposition Disposition: ROUTINE DISCHARGE Condition: GOOD Patient Discharge Instructions: You are to f/u with Dr Franco in his office in 1 to 2 days post discharge. You will be possibly placed on Halter monitor and than referred to a EP senior mainframe developer in [place] for ablation. No new medication. Diet: Regular Activity: Ad laverne
--- NOTE | 2017-06-08 21:54 | CON ---
Date of Consultation: 06/08/2017 The patient was admitted on 06/07/2017 for atrial fibrillation and atypical chest pain. I saw the pa nalini on 06/08/2017. The patient was admitted by Dr. Rahman. History Of Present Illness: Ms. Santacruz is very well known to me. She is 66. She has had a rather l brianna history of the atrial fibrillation that has been unresponsive to cardioversions and Betapace and beta-blockers and amiodarone. She is on Rythmol. The last time she came in, we went up on her dose to 225 three times a day. She continued to do well until yesterday when she had a severe episode of atrial fibrillation, rapid response, came in with chest pain and shortness of breath, received IV bet a-blockers and she is back in normal rhythm. Denied PND, orthopnea, pedal edema, or syncope. Denied any fevers or chills. Review of Systems: Negative. Social History: Negative. Family History: Noncontributory. Allergies: INCLUDE CIPROFLOXACIN, DEMEROL, IBUPROFEN, IODINE, KEFLEX, LEVAQUIN, MORPHINE, AND PENICI LLIN. Medications: At home include multiple inhalers. She takes clonidine. She is also on IV immunoglobu subhash. She is on Lyrica, metoprolol, prednisone, sulfasalazine, and valsartan. Past Medical History: Includes ADD, arthritis, atrial fibrillation, COPD, depression, GERD, hyperten earl, polyps in the colon, and rheumatoid arthritis. Physical Examination: Vital Signs: Stable. She was afebrile. HEENT: Negative. Neck: Supple without any bruit, lymphadenopathy, JVD, or thyromegaly. Chest: Clear to auscultation and percussion. Cardiac: Revealed irregular rhythm and rate without any murmurs, gallops, or rubs. Abdomen: Benign. Extremities: Revealed no clubbing, cyanosis, or edema. Laboratory Data: Her potassium was 2.9, corrected to 3.5. Her magnesium was 1.6. Troponin was 0.04 . She has a cholesterol of 246, triglyceride of 260, LDL of 143. Her TSH was slightly elevated at 6 .73. She has had normal echoes and she has had a normal heart catheterization approximately 2 years ago. Impression And Plan: Atrial fibrillation that has failed all kind of therapy, including Rythmol, Bet apace, beta blockers, shocks, and amiodarone. I think, she needs to have an electrophysiology consul tation to decide on ablation or ablation and a pacemaker. I discussed the case further with her as f ar as I was concerned. Her other problems seemed to be stable at this point. Her blood pressure is well controlled. Her magnesium needs to be corrected. Her thyroid needs to be followed, and she may have to be on thyroid medication. She can go home whenever it is okay with Dr. Rahman. ABEL/KSENIA Voice ID: [id number] Report ID: [id number]
[2017-06-09] MEDS ORDERED: ARFORMOTEROL TARTRATE 15 MCG/2 ML VIAL.NEB IH SCH (08:00)
== END 2017-06-08 14:26 | disposition home or self-care (01) | DRG 310 ==
LOC: ER 18:35 → ERHOLD 19:21 → 4TH 20:45
PROVIDERS: ADMIT Hospitalist; ATTEND Hospitalist
PROC: 0T9B70Z Drainage of Bladder with Drainage Device, Via Natural or Artificial Opening (ICD-10-PCS; principal; 2017-06-07)
DX: I48.91 Unspecified atrial fibrillation (principal); J44.9 Chronic obstructive pulmonary disease, unspecified; E78.00 Pure hypercholesterolemia, unspecified; K21.9 Gastro-esophageal reflux disease without esophagitis; J84.10 Pulmonary fibrosis, unspecified; M06.9 Rheumatoid arthritis, unspecified; G47.30 Sleep apnea, unspecified; I45.5 Other specified heart block; G89.29 Other chronic pain; G47.33 Obstructive sleep apnea (adult) (pediatric); Z87.891 Personal history of nicotine dependence
CPT/HCPCS: 36415; 71045; 80048; 80061; 80076; 81003; 82550; 82553; 83690; 83735; 83880; 84132; 84439; 84443; 84484; 85025; 85610; 85730; 93005; 93306; 94640; 96372; 99285; J1160; J1650; J3010; J3475; J7512; J7605

== ENCOUNTER 2017-06-16 23:43 | Inpatient (IN) | payer OTHER ==
--- OUTSIDE RECORDS SUMMARY | 2017-06-16 23:46 | XMS REPORT ---
:1950 Author Organization [facility] Address [address] [place], [place] [address]yogesh Vickers [address] [place] [address] Care Team Providers Name Role Phone Morena WALSH Unavailable Unavailable Problems This patient has no known problems. Allergies, Adverse Reactions, Alerts This patient has no known allergies or adverse reactions. Medications This patient has no known medications. Results Test Description Test Time Test Comments Text Results Atomic Results Result Comments BUN 2017-04-18 14:55:00 Test Item Value Reference Range Comments BLOOD UREA NITROGEN (BEAKER) (test dnxb=049) 11 mg/dL 7- [id number] 14:55:00 Test Item Value Reference Range Comments CREATININE (BEAKER) (test 0.65 mg/dL 0.57-1.25 hvpk=010) EGFR (BEAKER) (test 91 mL/min/1.73 sq m ESTIMATED GFR IS NOT zamf=2124) ACCURATE CREATININE CLEARANCE IN PREDICTING GLOMERULAR FILTRATION RATE. ESTIMATED GFR IS NOT APPLICABLE FOR DIALYSIS PATIENTS. BUN AND [id number] 15:59:00 Test Item Value Reference Range Comments BLOOD UREA NITROGEN 10 mg/dL - (BEAKER) (test smns=584) CREATININE (BEAKER) (test 0.65 mg/dL 0.57-1.25 iouf=610) EGFR (BEAKER) (test 91 mL/min/1.73 sq m ESTIMATED GFR IS NOT zteh=1629) ACCURATE CREATININE CLEARANCE IN PREDICTING GLOMERULAR FILTRATION RATE. ESTIMATED GFR IS NOT APPLICABLE FOR DIALYSIS PATIENTS. [id number] 14:45:00 Test Item Value Reference Range Comments BLOOD UREA NITROGEN (BEAKER) (test fvuh=744) 13 mg/dL 7- [id number] 14:45:00 Test Item Value Reference Range Comments CREATININE (BEAKER) (test 0.74 mg/dL 0.57-1.25 lnfa=175) EGFR (BEAKER) (test 79 mL/min/1.73 sq m ESTIMATED GFR IS NOT hfut=0959) ACCURATE CREATININE CLEARANCE IN PREDICTING GLOMERULAR FILTRATION RATE. ESTIMATED GFR IS NOT APPLICABLE FOR DIALYSIS PATIENTS. BUN AND [id number] 14:55:00 Test Item Value Reference Range Comments BLOOD UREA NITROGEN 13 mg/dL 7-21 (BEAKER) (test eqph=474) CREATININE (BEAKER) (test 0.69 mg/dL 0.57-1.25 jdxp=141) EGFR (BEAKER) (test 85 mL/min/1.73 sq m ESTIMATED GFR IS NOT ifvz=1907) ACCURATE CREATININE CLEARANCE IN PREDICTING GLOMERULAR FILTRATION RATE. ESTIMATED GFR IS NOT APPLICABLE FOR DIALYSIS PATIENTS. [id number] 17:24:00 Test Item Value Reference Range Comments BLOOD UREA NITROGEN (BEAKER) (test nbdk=366) 12 mg/dL 7-21 [id number] 17:24:00 Test Item Value Reference Range Comments CREATININE (BEAKER) (test 0.67 mg/dL 0.57-1.25 vytk=018) EGFR (BEAKER) (test 89 mL/min/1.73 sq m ESTIMATED GFR IS NOT vkbs=8645) ACCURATE CREATININE CLEARANCE IN PREDICTING GLOMERULAR FILTRATION RATE. ESTIMATED GFR IS NOT APPLICABLE FOR DIALYSIS PATIENTS.
[2017-06-17] MEDS ORDERED: ASPIRIN 81 MG CHEWABLE TABLET ONE (00:38)
[2017-06-17] MEDS ORDERED: DIGOXIN 0.25 MG/ML AMP ONE (00:38)
[2017-06-17] MEDS ORDERED: dilTIAZem HCl 50 MG/10 ML VIAL IV ONE ×2 (00:39→03:34)
[2017-06-17 01:32] LABS: Absolute Lymphocytes (CBC) 1.2 K/uL (0.7-4.9); Absolute Monocytes 0.5 K/uL (0.1-1.3); Absolute Neutrophil 2.7 K/uL (1.8-8.0); Basophils % 1.1 % (0-1.3); Eosinophils % 3.8 % (0-4.4); Hematocrit 42.5 % (36.0-45.0); Lymphocytes % 26.1 % (15.3-44.8); MCH 27.9 pg (27.0-35.0); MCV 85.3 fL (80-100); MPV 9.5 fL (7.6-11.3); RBC Red Blood Cell Count 4.98 M/uL (3.86-4.86)
[2017-06-17] MEDS ORDERED: PROPAFENONE HCL 150 MG TAB ONE (01:32)
[2017-06-17 01:35] LABS: Protime INR 1.01
[2017-06-17 01:37] LABS: Urine Blood NEGATIVE (NEG); Urine Glucose NEGATIVE (NEG); Urine Protein NEGATIVE (NEG); Urine Specific Gravity 1.015 (1.005-1.030)
[2017-06-17 01:45] LABS: Potassium 3.7 mEq/L (3.6-5.0)
[2017-06-17 01:51] LABS: Albumin 3.5 g/dL (3.2-5.5); Bilirubin Direct 0.2 mg/dL (0-0.2); Bilirubin Total 0.3 mg/dL (0.3-1.2); Magnesium 1.6 mg/dL (1.8-2.5); Protein, Total 7.1 g/dL (6.0-8.3)
[2017-06-17] MEDS ORDERED: HYDROCODONE/APAP 7.5/325 MG TAB ONE (02:10)
[2017-06-17] MEDS ORDERED: MAGNESIUM SULFATE 1 gm IVPB 1 GM/100 ML BAG IV ONE (03:39)
[2017-06-17] MEDS ORDERED: NA CHLORIDE 0.9% 100 ML IV ONE (03:39)
--- NOTE | 2017-06-17 04:02 | EDPHYS ---
Physician Documentation [facility] Name: Marlen Santacruz Age: 66 yrs Sex: Female : 1950 Arrival Date: 06/16/2017 Time: 23:44 Bed 2 Private MD: ED Physician Franco Osuna HPI: 06/17 16:51 This 66 yrs old Female presents to ER via Wheelchair with complaints of Chest wa Pain, High Blood Pressure. 16:51 The patient or guardian reports chest pain that is located primarily in the substernal wa area. Onset: just prior to arrival. The pain does not radiate. Associated signs and symptoms: Pertinent positives: palpitations, shortness of breath. The chest pain is described as a pressure. Duration: The patient or guardian reports a single episode, that is still ongoing. Modifying factors: The symptoms are alleviated by nothing. the symptoms are aggravated by nothing. Severity of pain: At its worst the pain was moderate in the emergency department the pain is unchanged. The patient has not experienced similar symptoms in the past. The patient has not recently seen a physician. Historical: - Allergies: 00:11 Keflex; lp1 00:11 Morphine; lp1 00:11 PENICILLINS; lp1 00:11 Sporanox; lp1 00:11 Demerol; lp1 00:11 Iodine; lp1 00:11 Levaquin; lp1 00:11 Ciprofloxacin; lp1 00:11 Ibuprofen; lp1 - Home Meds: 00:11 Arava 20 mg Oral tab 1 tab once daily [Active]; prednisone 10 mg Oral tab once daily lp1 [Active]; sulfasalazine 500 mg Oral tab 1 tab twice a day [Active]; clonidine HCl 0.2 mg Oral tab 2 times per day [Active]; potassium chloride 20 mEq Oral TbTQ 2 times per day [Active]; Magnesium Oxide Oral daily [Active]; Nasonex 50 mcg/actuation Nasal spry once daily [Active]; Anoro Ellipta 62.5-25 mcg/actuation inhalation dsdv 1 puff once daily [Active]; omeprazole 40 mg Oral cpDR 1 cap 2 times per day [Active]; duloxetine 30 mg oral cpDR 2 times per day [Active]; Brovana 15 mcg/2 mL inhalation nebu 2 mL 2 times per day [Active]; budesonide 0.25mg Oral CECX 2 caps twice a day [Active]; Esbriet 267 mg Oral cap 3 caps after meals [Active]; Atrovent Inhl twice a day [Active]; aspirin 81 mg Oral TbEC 1 tab once daily [Active]; Tylenol #3 Oral [Active]; Pulmicort Inhl [Active]; immune globul,gamma(IgG)-sorb-IgA 0 to 50 mcg/mL intravenous every 4 wks [Active]; hydrochlorothiazide 25 mg Oral tab 1 tab once daily [Active]; Propafenone Oral three times a day [Active]; Cartia XT 150 mg Oral once daily [Active]; - PMHx: 00:11 ADD/ADHD; Arthritis; Atrial Fib; COPD; Depression; GERD; Hypertension; Polyps Colon; lp1 Polyps Stomach; Rheumatoid Arthritis; Staph Infection Left Great Toe; - PSHx: 00:11 Tonsillectomy; Appendectomy; Cholecystectomy; Hysterectomy; Knee surgery; Carpel lp1 tunnel; Neck fusion; bursectomy; back surgery; - Immunization history:: Adult Immunizations up to date. - Social history:: Smoking status: Patient/guardian denies using tobacco, Smoking status: . - Family history:: not pertinent. - Hospitalizations: : No recent hospitalization is reported. ROS: 16:52 Constitutional: Negative for fever, chills, and weight loss, Eyes: Negative for injury, wa pain, redness, and discharge, ENT: Negative for injury, pain, and discharge, Neck: Negative for injury, pain, and swelling, Abdomen/GI: Negative for abdominal pain, nausea, vomiting, diarrhea, and constipation, Back: Negative for injury and pain, : Negative for injury, bleeding, discharge, and swelling, MS/Extremity: Negative for injury and deformity, Skin: Negative for injury, rash, and discoloration, Neuro: Negative for headache, weakness, numbness, tingling, and seizure, Psych: Negative for depression, anxiety, suicide ideation, homicidal ideation, and hallucinations. 16:52 Cardiovascular: Positive for chest pain, palpitations, Negative for edema. 16:52 Respiratory: Positive for shortness of breath, at rest. Negative for cough, hemoptysis, orthopnea. 16:52 All other systems are negative. Exam: 16:53 Constitutional: This is a well developed, well nourished patient who is awake, alert, wa and in no acute distress. Head/Face: Normocephalic, atraumatic. Eyes: Pupils equal round and reactive to light, extra-ocular motions intact. Lids and lashes normal. Conjunctiva and sclera are non-icteric and not injected. Cornea within normal limits. Periorbital areas with no swelling, redness, or edema. ENT: Nares patent. No nasal discharge, no septal abnormalities noted. Tympanic membranes are normal and external auditory canals are clear. Oropharynx with no redness, swelling, or masses, exudates, or evidence of obstruction, uvula midline. Mucous membranes moist. Neck: Trachea midline, no thyromegaly or masses palpated, and no cervical lymphadenopathy. Supple, full range of motion without nuchal rigidity, or vertebral point tenderness. No Meningismus. Abdomen/GI: Soft, non-tender, with normal bowel sounds. No distension or tympany. No guarding or rebound. No evidence of tenderness throughout. Back: No spinal tenderness. No costovertebral tenderness. Full range of motion. Skin: Warm, dry with normal turgor. Normal color with no rashes, no lesions, and no evidence of cellulitis. MS/ Extremity: Pulses equal, no cyanosis. Neurovascular intact. Full, normal range of motion. Neuro: Awake and alert, GCS 15, oriented to person, place, time, and situation. Cranial nerves II-XII grossly intact. Motor strength 5/5 in all extremities. Sensory grossly intact. Cerebellar exam normal. Normal gait. Psych: Awake, alert, with orientation to person, place and time. Behavior, mood, and affect are within normal limits. 16:53 Cardiovascular: Rate: tachycardic, Rhythm: irregular, Heart sounds: normal. 16:53 Respiratory: the patient does not display signs of respiratory distress, Respirations: normal, Breath sounds: bibasilar diminished. Vital Signs: 00:01 BP 162 / 103; Pulse 128; Resp 18; Temp 97.7(O); Pulse Ox 96% on R/A; Weight 108.86 kg; lp1 Height 5 ft. 5 in. (165.10 cm); Pain 10/10; 00:06 BP 153 / 96; Pulse 125; Resp 18; Pulse Ox 98% on 2 lpm NC; tl2 00:20 BP 120 / 87; Pulse 124; Resp 20; Pulse Ox 97% on 2 lpm NC; ak1 00:30 BP 133 / 85; Pulse 125; Resp 20; Pulse Ox 98% on 2 lpm NC; ak1 01:15 BP 127 / 82; Pulse 109; Resp 18; Pulse Ox 100% on R/A; ak1 04:35 BP 133 / 121; Pulse 92; Resp 18; Temp 98.2; Pulse Ox 100% on 2 lpm NC; Pain 0/10; ak1 05:28 BP 172 / 109; Pulse 112; Resp 16; Pulse Ox 100% on 2 lpm NC; ak1 06:33 BP 134 / 98; Pulse 126; Resp 18; Pulse Ox 99% on 2 lpm NC; ak1 00:01 Body Mass Index 39.94 (108.86 kg, 165.10 cm) lp1 MDM: 06/16 23:54 Patient medically screened. ms 06/17 16:54 Differential diagnosis: acute myocardial infarction, coronary artery disease congestive wa heart failure acute dysrhythmia. Differential diagnosis: noted A flutter. will monitor, work up and treat. will reassess. Data reviewed: vital signs, nurses notes. Test interpretation: by ED physician or midlevel provider: pt received meds. conversion and slowing not achieved. see orders. started on cardizem drip. admit ICU for further cards eval. Response to treatment: the patient's symptoms have mildly improved after treatment. Physician consultation: Valentin Ray MD. Admission orders: after a detailed discussion of the patient's condition and case, the admit orders are written by me. 06/17 00:04 Order name: Basic Metabolic Panel 06/17 00:04 Order name: BNP 06/17 00:04 Order name: CBC with Diff 06/17 00:04 Order name: CPK 06/17 00:04 Order name: LFT's 06/17 00:04 Order name: Magnesium 06/17 00:04 Order name: PT-INR 06/17 00:04 Order name: Troponin (emerg Dept Use Only) ms 06/17 01:11 Order name: Urine Dipstick--Ancillary (enter results) em1 06/17 01:33 Order name: CBC with Automated Diff; Complete Time: 01:44 EDDE 06/17 01:37 Order name: Urine Dipstick-Ancillary; Complete Time: 01:44 EDDE 06/17 01:44 Order name: Protime (+INR); Complete Time: 02:04 EDDE 06/17 01:45 Order name: Basic Metabolic Panel; Complete Time: 02:04 [facility] 06/17 01:50 Order name: Troponin (Emerg Dept Use Only); Complete Time: 02:04 [facility] 06/17 00:04 Order name: XRAY Chest (1 view) ms 06/17 00:04 Order name: EKG; Complete Time: 00:06 ms 06/17 00:04 Order name: Cardiac monitoring; Complete Time: 00:06 ms 06/17 01:51 Order name: Liver (Hepatic) Function; Complete Time: 02:04 [facility] 06/17 01:51 Order name: Magnesium; Complete Time: 02:04 [facility] 06/17 01:54 Order name: BNP B-Type Natriuretic Peptide; Complete Time: 02:04 [facility] 06/17 02:01 Order name: Creatine Phosphokinase; Complete Time: 02:04 [facility] 06/17 00:04 Order name: EKG - Nurse/Tech; Complete Time: 00:06 ms 06/17 00:04 Order name: IV Saline Lock; Complete Time: 00:06 ms 06/17 00:04 Order name: Labs collected and sent; Complete Time: 00:06 ms 06/17 00:04 Order name: O2 Per Protocol; Complete Time: 00:06 ms 06/17 00:04 Order name: O2 Sat Monitoring; Complete Time: 00:06 ms 06/17 00:04 Order name: Urine Dipstick-Ancillary (obtain specimen); Complete Time: 01:14 ms 06/17 00:05 Order name: Oxygen; Complete Time: 00:06 ms Administered Medications: 00:20 Drug: Aspirin Chewable Tablet 324 mg Route: PO; ak1 00:49 Follow up: Response: No adverse reaction ak1 00:20 Drug: Diltiazem 10 mg Route: IVP; Site: right antecubital; ak1 00:48 Follow up: Response: No adverse reaction ak1 00:30 Drug: Digoxin 0.5 mg Route: IVP; Site: right antecubital; ak1 00:49 Follow up: Response: No adverse reaction ak1 00:40 Drug: Diltiazem 10 mg Route: IVP; Site: right antecubital; ak1 00:48 Follow up: Response: No adverse reaction ak1 00:42 CANCELLED (verbal order for 10mg): Diltiazem 20 mg IVP once; Over 2 Minutes ak1 01:12 Drug: Rythmol 225 mg {Note: pt took her home rythmol of 225mg instead of waiting for ak1 medication to come from 4th floor. .} Route: PO; 06:02 Follow up: Response: No adverse reaction ak1 01:53 Drug: Citra (7.5 mg-325 mg) 1 tabs Route: PO; tl2 04:16 Follow up: Response: No adverse reaction ak1 03:34 Drug: Cardizem 5 mg/hr Route: IV; Rate: calculated rate; Site: right antecubital; ak1 06:35 Follow up: IV Status: Infusion continued upon admission ak1 03:35 Drug: Magnesium Sulfate 1 grams Route: IVPB; Infused Over: 1 hrs; Site: right ak1 antecubital; 04:35 Follow up: IV Status: Completed infusion ak1 06:02 Follow up: IV Status: Completed infusion ak1 Disposition: 16:56 Critical Care:. wa Disposition: 06/17/17 04:01 Hospitalization ordered by Valentin Ray for Inpatient Admission. Preliminary diagnosis are A fib RVR, Shortness of Breath. - Bed requested for Intensive Care Unit. - Status is Inpatient Admission. ss - Condition is Fair. - Problem is an acute exacerbation. - Symptoms have improved. UTI on Admission? No Critical care time excluding procedures: 16:56 Critical care time: Bedside Care: 25 minutes, Consultation: 5 minutes, Family wa Intervention: 5 minutes. Total time: 35 minutes Signatures: Dispatcher [employer] Meredith Betancourt RN RN kl Smirch, Shelby, RN RN ss Luisa Elmore RN RN lp1 Pamela Lucio RN RN ak1 Jocelin Curtis RN RN tl2 Franco Osuna MD MD ms Corrections: (The following items were deleted from the chart) 00:42 00:42 Diltiazem 20 mg IVP once; Over 2 Minutes ordered. ak1 ak1
--- NOTE | 2017-06-17 04:02 | ER ---
Nurse's Notes [facility] Name: Marlen Santacruz Age: 66 yrs Sex: Female : 1950 Arrival Date: 06/16/2017 Time: 23:44 Bed 2 Private MD: Diagnosis: A fib RVR;Shortness of Breath Presentation: 06/17 00:00 Presenting complaint: Patient states: Chest pain that began at 2200 tonight, lp1 palpitations, high blood pressure; Hx of Atrial fibrillation. Transition of care: patient was not received from another setting of care. Onset of symptoms was June 16, 2017 at 22:00. Care prior to arrival: None. 00:00 Method Of Arrival: Wheelchair lp1 00:00 Acuity: LINDEN 2 lp1 Historical: - Allergies: 00:11 Keflex; lp1 00:11 Morphine; lp1 00:11 PENICILLINS; lp1 00:11 Sporanox; lp1 00:11 Demerol; lp1 00:11 Iodine; lp1 00:11 Levaquin; lp1 00:11 Ciprofloxacin; lp1 00:11 Ibuprofen; lp1 - Home Meds: 00:11 Arava 20 mg Oral tab 1 tab once daily [Active]; prednisone 10 mg Oral tab once daily lp1 [Active]; sulfasalazine 500 mg Oral tab 1 tab twice a day [Active]; clonidine HCl 0.2 mg Oral tab 2 times per day [Active]; potassium chloride 20 mEq Oral TbTQ 2 times per day [Active]; Magnesium Oxide Oral daily [Active]; Nasonex 50 mcg/actuation Nasal spry once daily [Active]; Anoro Ellipta 62.5-25 mcg/actuation inhalation dsdv 1 puff once daily [Active]; omeprazole 40 mg Oral cpDR 1 cap 2 times per day [Active]; duloxetine 30 mg oral cpDR 2 times per day [Active]; Brovana 15 mcg/2 mL inhalation nebu 2 mL 2 times per day [Active]; budesonide 0.25mg Oral CECX 2 caps twice a day [Active]; Esbriet 267 mg Oral cap 3 caps after meals [Active]; Atrovent Inhl twice a day [Active]; aspirin 81 mg Oral TbEC 1 tab once daily [Active]; Tylenol #3 Oral [Active]; Pulmicort Inhl [Active]; immune globul,gamma(IgG)-sorb-IgA 0 to 50 mcg/mL intravenous every 4 wks [Active]; hydrochlorothiazide 25 mg Oral tab 1 tab once daily [Active]; Propafenone Oral three times a day [Active]; Cartia XT 150 mg Oral once daily [Active]; - PMHx: 00:11 ADD/ADHD; Arthritis; Atrial Fib; COPD; Depression; GERD; Hypertension; Polyps Colon; lp1 Polyps Stomach; Rheumatoid Arthritis; Staph Infection Left Great Toe; - PSHx: 00:11 Tonsillectomy; Appendectomy; Cholecystectomy; Hysterectomy; Knee surgery; Carpel lp1 tunnel; Neck fusion; bursectomy; back surgery; - Immunization history:: Adult Immunizations up to date. - Social history:: Smoking status: Patient/guardian denies using tobacco, Smoking status: . - Family history:: not pertinent. - Hospitalizations: : No recent hospitalization is reported. Screenin:03 Abuse screen: Denies threats or abuse. Nutritional screening: No deficits noted. tl2 Tuberculosis screening: No symptoms or risk factors identified. Fall Risk Fall in past 12 months (25 points). Assessment: 00:03 General: Appears in no apparent distress. uncomfortable, Behavior is calm, cooperative, tl2 appropriate for age. Pain: Complains of pain in chest Pain does not radiate. Pain currently is 10 out of 10 on a pain scale. Quality of pain is described as sore Pain began 2-3 days ago. Neuro: Level of Consciousness is awake, alert, obeys commands, Oriented to person, place, time, situation. Cardiovascular: Reports chest pain, palpitations, shortness of breath, Denies nausea, vomiting, Rhythm is atrial flutter 2:1. Respiratory: Reports shortness of breath cough that is Airway is patent Respiratory effort is even, unlabored, Respiratory pattern is regular, symmetrical. GI: No signs and/or symptoms were reported involving the gastrointestinal system. : No signs and/or symptoms were reported regarding the genitourinary system. Derm: Skin is pink, warm \T\ dry. 01:16 Reassessment: pt remains in an irregular rhythm. pt denies pain. pt denies SOB. family ak1 at bedside. will continue to monitor. 02:45 Reassessment: Patient appears in no apparent distress at this time. No changes from ak1 previously documented assessment. Patient and/or family updated on plan of care and expected duration. Pain level reassessed. Patient is alert, oriented x 3, equal unlabored respirations, skin warm/dry/pink. 03:20 Reassessment: Patient appears in no apparent distress at this time. No changes from ak1 previously documented assessment. Patient and/or family updated on plan of care and expected duration. Pain level reassessed. Patient is alert, oriented x 3, equal unlabored respirations, skin warm/dry/pink. pt informed of admission. pt and family informed of bed situation and the need to stay in the ER until shift change for an ICU bed. will continue to monitor. 04:15 Reassessment: Patient appears in no apparent distress at this time. Patient and/or ak1 family updated on plan of care and expected duration. Pain level reassessed. Patient is alert, oriented x 3, equal unlabored respirations, skin warm/dry/pink. 05:00 Reassessment: Patient appears in no apparent distress at this time. No changes from ak1 previously documented assessment. Patient and/or family updated on plan of care and expected duration. Pain level reassessed. Patient is alert, oriented x 3, equal unlabored respirations, skin warm/dry/pink. 06:00 Reassessment: called Dr. Ray and informed him of pt vitals. verbal order given for ak1 0.2 clonidine PO that was placed in [facility] and documented in [employer]. . 06:15 Reassessment: pt assisted to bedside commode. pt asked to sit in wheelchair. resp even ak1 and unlabored. will continue to monitor. . 07:10 Reassessment: report given to Isaias. . ak1 Vital Signs: 00:01 BP 162 / 103; Pulse 128; Resp 18; Temp 97.7(O); Pulse Ox 96% on R/A; Weight 108.86 kg; lp1 Height 5 ft. 5 in. (165.10 cm); Pain 01/03; 00:06 BP 153 / 96; Pulse 125; Resp 18; Pulse Ox 98% on 2 lpm NC; tl2 00:20 BP 120 / 87; Pulse 124; Resp 20; Pulse Ox 97% on 2 lpm NC; ak1 00:30 BP 133 / 85; Pulse 125; Resp 20; Pulse Ox 98% on 2 lpm NC; ak1 01:15 BP 127 / 82; Pulse 109; Resp 18; Pulse Ox 100% on R/A; ak1 04:35 BP 133 / 121; Pulse 92; Resp 18; Temp 98.2; Pulse Ox 100% on 2 lpm NC; Pain 0/10; ak1 05:28 BP 172 / 109; Pulse 112; Resp 16; Pulse Ox 100% on 2 lpm NC; ak1 06:33 BP 134 / 98; Pulse 126; Resp 18; Pulse Ox 99% on 2 lpm NC; ak1 00:01 Body Mass Index 39.94 (108.86 kg, 165.10 cm) lp1 ED Course: 06/16 23:44 Patient arrived in ED. al2 23:54 Franco Osuna MD is Attending Physician. wv 06/17 00:01 Triage completed. lp1 00:01 Arm band placed on left wrist. lp1 00:03 Patient has correct armband on for positive identification. Bed in low position. Call tl2 light in reach. Side rails up X2. Adult w/ patient. court monitor on. Pulse ox on. NIBP on. 00:03 Inserted saline lock: 20 gauge in right antecubital area, using aseptic technique. tl2 Blood collected. placed by MANJINDER Santiago. 00:03 Patient maintains SpO2 saturation greater than 95% on room air. tl2 00:11 Pamela Lucio RN is Primary Nurse. ak1 04:00 Valentin Ray MD is Hospitalizing Provider. wv 04:15 Patient admitted, IV remains in place. ak1 04:15 No provider procedures requiring assistance completed. ak1 Administered Medications: 00:20 Drug: Aspirin Chewable Tablet 324 mg Route: PO; ak1 00:49 Follow up: Response: No adverse reaction ak1 00:20 Drug: Diltiazem 10 mg Route: IVP; Site: right antecubital; ak1 00:48 Follow up: Response: No adverse reaction ak1 00:30 Drug: Digoxin 0.5 mg Route: IVP; Site: right antecubital; ak1 00:49 Follow up: Response: No adverse reaction ak1 00:40 Drug: Diltiazem 10 mg Route: IVP; Site: right antecubital; ak1 00:48 Follow up: Response: No adverse reaction ak1 00:42 CANCELLED (verbal order for 10mg): Diltiazem 20 mg IVP once; Over 2 Minutes ak1 01:12 Drug: Rythmol 225 mg {Note: pt took her home rythmol of 225mg instead of waiting for ak1 medication to come from 4th floor. .} Route: PO; 06:02 Follow up: Response: No adverse reaction ak1 01:53 Drug: Screven (7.5 mg-325 mg) 1 tabs Route: PO; tl2 04:16 Follow up: Response: No adverse reaction ak1 03:34 Drug: Cardizem 5 mg/hr Route: IV; Rate: calculated rate; Site: right antecubital; ak1 06:35 Follow up: IV Status: Infusion continued upon admission ak1 03:35 Drug: Magnesium Sulfate 1 grams Route: IVPB; Infused Over: 1 hrs; Site: right ak1 antecubital; 04:35 Follow up: IV Status: Completed infusion ak1 06:02 Follow up: IV Status: Completed infusion ak1 Outcome: 04:01 Decision to Hospitalize by Provider. wv 04:15 Condition: stable ak1 04:15 Instructed on the need for admit. 08:19 Patient left the ED. ss Signatures: Carina Morse RN RN ss Luisa Elmore RN RN lp1 Pamela Lucio RN RN ak1 Jocelin Curtis RN RN tl2 Franco Osuna MD MD wa Love, Pamela angel2 Corrections: (The following items were deleted from the chart) 06:18 02:45 Reassessment: Patient appears in no apparent distress at this time. No changes ak1 from previously documented assessment. Patient and/or family updated on plan of care and expected duration. Pain level reassessed. Patient is alert, oriented x 3, equal unlabored respirations, skin warm/dry/pink. pt informed of admission. pt and family informed of bed situation and the need to stay in the ER until shift change for an ICU bed. will continue to monitor. ak1
[2017-06-17] MEDS ORDERED: FUROSEMIDE 40 MG/4 ML VIAL IV ONE (04:41)
--- NOTE | 2017-06-17 04:57 | P.HP ---
Certification for Inpatient Patient admitted to: Inpatient With expected LOS: >2 Midnights Practitioner: I am a practitioner with admitting privileges, knowledge of patient current condition, hospital course, and medical plan of care. Services: Services provided to patient in accordance with Admission requirements found in Title 42 Section 412.3 of the Code of Federal Regulations Patient History Date of Service: 06/17/17 Reason for admission: Afib with RVR History of Present Illness: Ms Santacruz is a 66 years old woman with history of RA, HTN, COPD, long stand history of A.fib with recurrent admission with RVR, last time a couple of weeks ago, at that time she was recommended to see an electrophysilogist for ablation and pacemaker placement, since medical treatment has failed. Last night, she was on the bed, when and stand up to go to the rest room, when start feeling lightheadedness and palpitations. Then she had some chest pain, tightness as well. She denied nausea, diaphoresis, increasing SOB or dizziness. In ER EKG showed A.Flutter with RVR. She was treated with cardizem bolus and digoxine. Gradually her heart rate decreased from 130's to 80's. No fever or chills. Allergies cephalexin monohydrate [From Keflex] Allergy (Intermediate, Verified 06/07/17 22 :04) Itching/Hives/Rash iodine [Iodine] Allergy (Intermediate, Verified 06/07/17 22:04) Itching/Hives/Rash itraconazole [From Sporanox] Allergy (Intermediate, Verified 06/07/17 22:04) Itching/Hives/Rash levofloxacin [From Levaquin] Allergy (Intermediate, Verified 06/07/17 22:04) Itching/Hives/Rash meperidine HCl [From Demerol] Allergy (Intermediate, Verified 06/07/17 22:04) Itching/Hives/Rash Penicillins Allergy (Intermediate, Verified 06/07/17 22:04) Itching/Hives/Rash morphine Allergy (Mild, Verified 06/07/17 22:04) Itching/Hives/Rash ciprofloxacin Allergy (Verified 06/07/17 22:04) Itching/Hives/Rash ibuprofen Allergy (Verified 06/07/17 22:04) Itching/Hives/Rash Home Medications: Sulfasalazine [Sulfazine] 2 tab PO BID 09/10/11 Arformoterol Tartrate [Brovana] 2 puff IH DAILY #1 11/27/16 Aspirin [Adult Low Dose Aspirin EC] 81 mg PO DAILY #30 11/27/16 Budesonide [Pulmicort*] 2 puff IH BID #1 11/27/16 Clonidine HCl 0.2 mg PO BID #60 11/27/16 Duloxetine HCl 30 mg PO BID #60 11/27/16 Guaifenesin [Mucinex] 1,200 mg PO DAILY #14 11/27/16 Ipratropium Mdi [Atrovent Hf Inhaler*] 1 puff IH DAILY #1 11/27/16 Leflunomide [Arava] 20 mg PO DAILY #30 11/27/16 Mometasone Furoate [Nasonex] 2 spr NS DAILY #1 11/27/16 Pirfenidone [Esbriet] 3 cap PO TIDWM #120 11/27/16 Potassium Chloride [Klor-Con M20] 1 tab PO BID #60 11/27/16 Prednisone [Deltasone*] 10 mg PO DAILY #30 11/27/16 Codeine/APAP [Tylenol #3*] 1 tab PO TIDP PRN 03/06/17 Diltiazem HCl [Cartia Xt] 240 mg PO DAILY 03/06/17 Etanercept [Enbrel] 25 mg SQ SEECOM 03/06/17 Hydrochlorothiazide 25 mg PO DAILY 03/06/17 Hydrocodone Bit/Acetaminophen [[place] 10-325 Tablet] 1 tab PO TIDP PRN 03/06/17 Propafenone [Rythmol*] 225 mg PO TID #60 tab 03/06/17 Amitriptyline HCl 1 tab PO BID 06/07/17 Hydrochlorothiazide 1 tab PO DAILY 06/07/17 Omeprazole [Prilosec] 40 mg PO BID 06/07/17 Umeclidinium Brm/Vilanterol Tr [Anoro Ellipta 62.5-25 Mcg INH] 1 cap IH BEDTIME 06/07/17 - Past Medical/Surgical History Diabetic: No -: Rheumatoid Arthritis -: Interstitial Lung Disease -: Sleep Apnea -: Lichen [place] -: osteopenia -: High Cholesterol -: COPD -: Afib -: Bronchiectis -: Hiatal Hernia -: GERD -: depression -: Tonsilectomy -: Appendectomy, Kelle -: Hysterectomy -: Multiple ganglion cyst removal -: Knee Replacement rohini -: Tendon repair bilateral wrist -: Knuckle removal in toes on R foot/hands -: Multiple bursectomy excision - Family History Sister -: Hypertension, Lung disease, Other (see notes) Notes: rotoscoliasis, sleep apnea, hyperlipidemia Brother -: Hypertension, Diabetes, Other (see notes) Notes: gout, hyperlipidemia Mother -: Hypertension, Cancer Notes: klatskin tumor Father -: Heart disease, Hypertension, Lung disease, Diabetes, Cancer, Other (see notes ) Notes: lung cancer, gout - Social History Smoking Status: Former smoker Alcohol use: No CD- Drugs: No Caffeine use: Yes Place of Residence: Home Review of Systems 10-point ROS is otherwise unremarkable Physical Examination - Physical Exam General: Alert, In no apparent distress HEENT: Atraumatic, PERRLA, Mucous membr. moist/pink, EOMI, Sclerae nonicteric Neck: Supple, 2+ carotid pulse no bruit, No LAD, Without JVD or thyroid abnormality Respiratory: Diminished, Crackles/rales (scattered bibasilar rales) Cardiovascular: Normal S1 S2, Irregular heart rate/rhythm Gastrointestinal: Normal bowel sounds, No tenderness Musculoskeletal: No tenderness Integumentary: No rashes Neurological: Normal speech, Normal strength at 5/5 x4 extr, Normal tone, Normal affect Lymphatics: No axilla or inguinal lymphadenopathy - Studies Laboratory Data (last 24 hrs) 06/17/17 01:21: PT 11.9, INR 1.01 06/17/17 01:21: WBC 4.6 D, Hgb 13.9, Hct 42.5, Plt Count 151 L D 06/17/17 01:21: B-Natriuretic Peptide 380 H 06/17/17 01:21: Sodium 139, Potassium 3.7, BUN 12, Creatinine 0.68, Glucose 157 H, Magnesium 1.6 L, Total Bilirubin 0.3, AST 31, ALT 16, Alkaline Phosphatase 75 Assessment and Plan - Problems (Diagnosis) (1) Atrial fibrillation with RVR Onset Date: 10/21/16 Current Visit: No Status: Acute (2) Chest pain Onset Date: 12/23/16 Current Visit: No Status: Acute Qualifiers: Chest pain type: precordial pain Qualified Code(s): R07.2 - Precordial pain (3) COPD (chronic obstructive pulmonary disease) Onset Date: 10/21/16 Current Visit: No Status: Chronic Qualifiers: COPD type: chronic bronchitis Chronic bronchitis type: unspecified Qualified Code(s): J42 - Unspecified chronic bronchitis (4) Hypertension Onset Date: 10/21/16 Current Visit: No Status: Chronic Qualifiers: Hypertension type: essential hypertension (5) Rheumatoid arthritis Onset Date: 10/21/16 Current Visit: No Status: Chronic Qualifiers: Rheumatoid arthritis location: unspecified site Rheumatoid factor presence : unspecified presence Qualified Code(s): M06.9 - Rheumatoid arthritis, unspecified - Plan Ms Santacruz will be admitted to the hospital due to A.flutter with RVR. CXR its similar to previous one, however, seems to have slightly more vascular congestion. Will order IV lasix as well. Will resume Cardizem PO and propafenone. She has received 0.5 mg of Digoxin and Cardizem 50 mg IV bolus x 2. HR at the moment with well controlled at 80's bpm. Will continue cardiac monitoring, consult Dr Franco for further recommendations. - Advance Directives Does patient have a Living Will: Yes Does patient have a Durable POA for Healthcare: Yes - Code Status/Comfort Care Code Status Assessed: Yes Code Status: Full Code
[2017-06-17] MEDS ORDERED: ACETAMINOPHEN 500 MG TAB PO PRN (05:34)
[2017-06-17] MEDS ORDERED: ONDANSETRON 4 MG/2 ML VIAL IV PRN (05:34)
[2017-06-17] MEDS ORDERED: cloNIDine HCl 0.1 MG TAB PO ONE (05:44)
[2017-06-17] MEDS ORDERED: FUROSEMIDE 40 MG/4 ML VIAL ONE (06:05)
[2017-06-17] MEDS ORDERED: cloNIDine HCl 0.1 MG TAB ONE (06:05)
--- NOTE | 2017-06-17 07:21 | EKG ---
Test Date: 2017-06-16 Test Time: 23:54:05 Hot Water Heater Installer: SURENDRA MEASUREMENT RESULTS: Intervals: Rate: 128 [place]: QRSD: 86 QT: 324 QTc: 473 [place]: P: [place]: QRS: 0 T: 160 INTERPRETIVE STATEMENTS: Atrial flutter with 2:[address] abnormality, possible inferolateral subendocardial injury Abnormal ECG Compared to ECG 06/08/2017 01:54:49 Sinus bradycardia no longer present Sinus arrhythmia no longer present Possible ischemia no longer present ST (T wave) deviation still present Electronically Signed On 06-17-17 07:21:24 CDT by Jackson Cooper
[2017-06-17] MEDS ORDERED: DILTIAZEM HCL 120 MG SR CAP PO SCH (09:00)
[2017-06-17] MEDS ORDERED: ENOXAPARIN 40 MG/0.4 ML SQ SCH (09:00)
[2017-06-17] MEDS ORDERED: ASPIRIN EC 81 MG TAB PO SCH (09:00)
[2017-06-17] MEDS ORDERED: PROPAFENONE HCL 150 MG TAB PO SCH (09:00)
[2017-06-17] MEDS ORDERED: IPRATROPIUM BROM 0.5MG/2.5ML NEB PRN (09:06)
--- NOTE | 2017-06-17 09:11 | P.PN ---
Subjective Date of Service: 06/17/17 Chief Complaint: Afib with RVR Subjective: Doing well Physical Examination - Vital Signs Temperature: 97.9 F Blood Pressure: 136/95 Pulse: 113 Respirations: 18 Pulse Ox (%): 96 - Physical Exam General: Alert, In no apparent distress, Oriented x3, Cooperative HEENT: Atraumatic Neck: Supple Respiratory: Clear to auscultation bilaterally, Normal air movement Cardiovascular: Irregular heart rate/rhythm (Atrial fibrillation, rate around 100-120) Gastrointestinal: Normal bowel sounds, Soft and benign, Non-distended, No masses , No rebound, No guarding Musculoskeletal: No erythema, No tenderness, No warmth Integumentary: No tenderness/swelling, No erythema, No warmth, No cyanosis Neurological: Normal speech, Normal strength at 5/5 x4 extr, Normal tone, Normal affect Lymphatics: No axilla or inguinal lymphadenopathy - Studies Laboratory Data (last 24 hrs) 06/17/17 01:21: PT 11.9, INR 1.01 06/17/17 01:21: WBC 4.6 D, Hgb 13.9, Hct 42.5, Plt Count 151 L D 06/17/17 01:21: B-Natriuretic Peptide 380 H 06/17/17 01:21: Sodium 139, Potassium 3.7, BUN 12, Creatinine 0.68, Glucose 157 H, Magnesium 1.6 L, Total Bilirubin 0.3, AST 31, ALT 16, Alkaline Phosphatase 75 Medications List Reviewed: Yes Assessment & Plan - Problems (Diagnosis) (1) Atrial fibrillation with RVR Onset Date: 10/21/16 Current Visit: No Status: Acute Plan: Patient with atrial fibrillation and RVR. Patient has been on multiple medications in the past. Recommendation the past was for the patient to have pacemaker and ablation therapy. She has not been able to follow up with ekg tech. Await further recommendations from cardiology. Heart rate improved. (2) COPD (chronic obstructive pulmonary disease) Onset Date: 10/21/16 Current Visit: No Status: Chronic Plan: Will continue with COPD medication Qualifiers: COPD type: chronic bronchitis Chronic bronchitis type: unspecified Qualified Code(s): J42 - Unspecified chronic bronchitis (3) Gastroesophageal reflux disease Onset Date: 10/21/16 Current Visit: No Status: Chronic Plan: Will continue with PPI. Qualifiers: Esophagitis presence: with esophagitis Qualified Code(s): K21.0 - Gastro- esophageal reflux disease with esophagitis (4) Hypertension Onset Date: 10/21/16 Current Visit: No Status: Chronic Plan: Will continue with her medication. Qualifiers: Hypertension type: essential hypertension (5) Pulmonary fibrosis Onset Date: 10/21/16 Current Visit: No Status: Chronic Plan: Will continue with her medication. Will maintain sats above 90%. (6) Rheumatoid arthritis Onset Date: 10/21/16 Current Visit: No Status: Chronic Plan: Will continue with her medication. Will verify if she is taking chronic steroids. If so will continue with that medication as well Qualifiers: Rheumatoid arthritis location: unspecified site Rheumatoid factor presence : unspecified presence Qualified Code(s): M06.9 - Rheumatoid arthritis, unspecified (7) Chronic steroid use Current Visit: Yes Status: Chronic Plan: Will verify if she is taking chronic steroids, if so will restart. Discharge Plan: Home Plan to discharge in: 48 Hours Time Spent Managing Pts Care (In Minutes): 55
--- NOTE | 2017-06-17 09:26 | RAD REPORT ---
EXAM DESCRIPTION: Flash Single View06/17/2017 12:20 am CLINICAL HISTORY: Chest pain COMPARISON: June 07, 2017 FINDINGS: Mild interstitial pulmonary opacities are suspected. The heart is mildly enlarged IMPRESSION: Mild CHF
[2017-06-17] MEDS ORDERED: cloNIDine HCl 0.1 MG TAB PO SCH ×2 (10:00→21:00)
[2017-06-17] MEDS: PANTOPRAZOLE 40MG TABLET PO SCH ×2 (10:10→16:01)
--- NOTE | 2017-06-17 10:33 | CON ---
Chief Complaint: Heart racing. History Of Present Illness: Mrs. Santacruz is a woman, who has had significant problems with atrial fib rillation. Her most recent therapy for atrial fibrillation has been propafenone 225 b.i.d. She has basically failed Betapace, it causes too much bradycardia. She has severe underlying health issues. She has severe pulmonary fibrosis and rheumatoid arthritis. Most recent medications have been sulfa salazine, aspirin, Pulmicort, clonidine, duloxetine, leflunomide, mometasone, pirfenidone, potassium chloride, prednisone, codeine, hydrochlorothiazide, Enbrel, diltiazem, propafenone, amitriptyline, om eprazole, Anoro Ellipta, hydrocodone, guaifenesin, Atrovent inhaler, and Brovana inhaler. Allergies: SHE HAS NUMEROUS ALLERGIES INCLUDING TO CEPHALEXIN, IODINE, ITRACONAZOLE, LEVOFLOXACIN, A ND MEPERIDINE. Social History: She uses no tobacco. She has used none since 1992. Physical Examination: General: She is 5 feet 5 inches, 240 pounds, obese, alert, oriented, pleasant, and not in distress. Vital Signs: Blood pressure 136/95, heart rate 113. HEENT: Normal. Lungs: No wheezes or crackles. Heart: Irregular. No significant murmur. Abdomen: Soft. Extremities: Mild edema. The skin is very atrophic and woody. She is starting to get the facial ap pearance of somebody with scleroderma, although that is not actually one of her diagnoses. She has m any features of it. Her hands show all the typical deformities associated with rheumatoid arthritis. Laboratory Data: Her electrocardiogram showed atrial flutter when she came in, now it is atrial fibr illation. I am going to recommend that we stop the propafenone, it is ineffective, and initiate a tr ansfer to [facility] where she can be under the care of Dr. Downs. This is something we have been trying to achieve for several months, namely, an EP consult between frequent hospitalizations, n umerous social issues, and lack of transportation. She has not made an appointment yet, and this is really after several months of trying. So, we are going to initiate a transfer to [facility] to the care of the hospitalist and Dr. Downs to treat what amounts to a very difficult to control atr ial fibrillation on a background of severe rheumatoid arthritis, pulmonary fibrosis, and pulmonary hy pertension. SH/MODL Voice ID: [id number] Report ID: [id number]
[2017-06-17] MEDS: SULFASALAZINE 500 MG E.C. TAB PO SCH ×2 (10:52→20:26)
[2017-06-17] MEDS ORDERED: PIRFENIDONE PO SCH (12:00)
[2017-06-17] MEDS: CODEINE 30MG/APAP 300MG TAB PO PRN ×2 (12:11→20:26)
[2017-06-17] MEDS: BENZONATATE 100 MG CAP PO PRN ×2 (15:53→22:04)
[2017-06-17] MEDS ORDERED: POTASSIUM CL SA 10 MEQ TAB PO ONE (20:00)
[2017-06-17] MEDS ORDERED: ARFORMOTEROL TARTRATE 15 MCG/2 ML VIAL.NEB NEB SCH (20:00)
[2017-06-17 21:00] VITALS: O2SAT 93
[2017-06-17] MEDS ORDERED: DULOXETINE 30 MG CAP PO SCH (21:00)
[2017-06-17] MEDS ORDERED: CLONIDINE HCL 0.2 MG PO SCH (21:00)
[2017-06-17] MEDS ORDERED: SULFASALAZINE PO SCH (21:00)
[2017-06-17] MEDS ORDERED: AMITRIPTYLINE 50 MG TAB PO SCH (21:00)
[2017-06-17 22:32] VITALS: TEMP 97.5
[2017-06-17 23:26] VITALS: BP 157/74
[2017-06-18] MEDS ORDERED: predniSONE 10 MG TAB PO SCH (09:00)
[2017-06-18] MEDS ORDERED: MOMETASONE FUROATE NS SCH (09:00)
[2017-06-18] MEDS ORDERED: LEFLUNOMIDE 20 MG PO SCH (09:00)
--- NOTE | 2017-06-18 14:13 | P.DS ---
Admission Date: 06/17/17 Discharge Date: 06/17/17 Primary Care Provider: Dr. Thorpe; Cardiology-Dr. Cooper Disposition: TRANSFER TO [facility] Condition: GOOD Reason for Admission: Afib with RVR Consultations: Cardiology - Problems (1) Atrial fibrillation with RVR Onset Date: 10/21/16 Status: Acute (2) COPD (chronic obstructive pulmonary disease) Onset Date: 10/21/16 Status: Chronic Qualifiers: COPD type: chronic bronchitis Chronic bronchitis type: unspecified Qualified Code(s): J42 - Unspecified chronic bronchitis (3) Gastroesophageal reflux disease Onset Date: 10/21/16 Status: Chronic Qualifiers: Esophagitis presence: with esophagitis Qualified Code(s): K21.0 - Gastro- esophageal reflux disease with esophagitis (4) Hypertension Onset Date: 10/21/16 Status: Chronic Qualifiers: Hypertension type: essential hypertension (5) Pulmonary fibrosis Onset Date: 10/21/16 Status: Chronic (6) Rheumatoid arthritis Onset Date: 10/21/16 Status: Chronic Qualifiers: Rheumatoid arthritis location: unspecified site Rheumatoid factor presence : unspecified presence Qualified Code(s): M06.9 - Rheumatoid arthritis, unspecified (7) Chronic steroid use Status: Chronic Brief History of Present Illness: 66-year-old female presented emergency room with uncontrolled atrial fibrillation with RVR. Patient has had atrial fibrillation for quite some time. She has been on multiple medications without any success of controlling her rate. Patient was admitted for further evaluation and treat Hospital Course: During his stay. The patient was evaluated by cardiology. Patient has significant chronic atrial fibrillation with RVR. Over the past several months she has been in the process of trying to see an mud mixer operator. Multiple medications have been used to help control rate without any success. Transportation also has been an issue. Patient has other medical issues as well including pulmonary fibrosis, COPD, rheumatoid arthritis, and hypertension. Cardiology felt that the patient needed to be transferred to electrophysiology while during this admission. Transfer was initiated and secured. Patient will be transferred to [facility] for evaluation and treatment by electrophysiology. Vital Signs/Physical Exam: Temp Pulse Resp BP Pulse Ox 97.5 F 63 22 H 157/74 H 98 06/17/17 20:00 06/17/17 23:00 06/17/17 23:00 06/17/17 23:00 06/17/17 23:00 General: Alert, In no apparent distress, Oriented x3, Cooperative HEENT: Atraumatic Neck: Supple Respiratory: Clear to auscultation bilaterally, Normal air movement Cardiovascular: Irregular heart rate/rhythm (Atrial fibrillation, rate around 110-120) Gastrointestinal: Normal bowel sounds, Soft and benign, Non-distended, No tenderness, No masses, No rebound, No guarding Musculoskeletal: No erythema, No tenderness, No warmth Integumentary: No tenderness/swelling, No erythema, No warmth, No cyanosis Neurological: Normal speech, Normal strength at 5/5 x4 extr, Normal tone, Normal affect Lymphatics: No axilla or inguinal lymphadenopathy Laboratory Data at Discharge: WBC 4.6 K/uL (4.3-10.9) D 06/17/17 01:21 Hgb 13.9 g/dL (12.0-15.0) 06/17/17 01:21 Hct 42.5 % (36.0-45.0) 06/17/17 01:21 Plt Count 151 K/uL (152-406) L D 06/17/17 01:21 PT 11.9 SECONDS (9.5-12.5) 06/17/17 01:21 INR 1.01 06/17/17 01:21 Sodium 139 mEq/L (135-145) 06/17/17 01:21 Potassium 3.7 mEq/L (3.6-5.0) 06/17/17 01:21 BUN 12 mg/dL (6-20) 06/17/17 01:21 Creatinine 0.68 mg/dL (0.44-1.00) 06/17/17 01:21 Glucose 157 mg/dL (65-120) H 06/17/17 01:21 Magnesium 1.6 mg/dL (1.8-2.5) L 06/17/17 01:21 Total Bilirubin 0.3 mg/dL (0.3-1.2) 06/17/17 01:21 AST 31 IU/L (10-42) 06/17/17 01:21 ALT 16 IU/L (10-60) 06/17/17 01:21 Alkaline Phosphatase 75 IU/L (42-121) 06/17/17 01:21 Troponin I 0.03 ng/mL (<0.03) 06/17/17 17:00 B-Natriuretic Peptide 380 pg/ml (<=100) H 06/17/17 01:21 Home Medications: Sulfasalazine [Sulfazine] 2 tab PO BID 09/10/11 Aspirin [Adult Low Dose Aspirin EC] 81 mg PO DAILY #30 11/27/16 Budesonide [Pulmicort*] 2 puff IH BID #1 11/27/16 Clonidine HCl 0.2 mg PO BID #60 11/27/16 Leflunomide [Arava] 20 mg PO DAILY #30 11/27/16 Mometasone Furoate [Nasonex] 2 spr NS DAILY #1 11/27/16 Pirfenidone [Esbriet] 3 cap PO TIDWM #120 11/27/16 Potassium Chloride [Klor-Con M20] 1 tab PO BID #60 11/27/16 Prednisone [Deltasone*] 10 mg PO DAILY #30 11/27/16 Codeine/APAP [Tylenol #3*] 1 tab PO TIDP PRN 03/06/17 Diltiazem HCl [Cartia Xt] 240 mg PO DAILY 03/06/17 Hydrochlorothiazide 25 mg PO DAILY 03/06/17 Propafenone [Rythmol*] 225 mg PO TID #60 tab 03/06/17 Omeprazole [Prilosec] 40 mg PO BID 06/07/17 Arformoterol Tartrate [Brovana] 2 ml IH BID 06/17/17 Duloxetine [Cymbalta Dalayed Release Pellets] 60 mg PO DAILY 06/17/17 Ipratropium Mdi [Atrovent Hf Inhaler*] 1 puff IH BID 06/17/17 Patient Discharge Instructions: Patient transferred to [facility] to be evaluated and treated by mud mixer operator. Diet: AHA Activity: Fall precautions Time spent managing pt's care (in minutes): 55
--- NOTE | 2017-06-19 11:11 | EKG ---
Test Date: 2017-06-17 Test Time: 08:36:56 Cardboard Inserter: MEASUREMENT RESULTS: Intervals: Rate: 57 [place]: 168 QRSD: 86 QT: 386 QTc: 375 [place]: P: 23 [place]: 168 QRS: -2 T: 149 INTERPRETIVE STATEMENTS: Sinus bradycardia ST & T wave abnormality, consider anterolateral ischemia Abnormal ECG Compared to ECG 06/16/2017 23:54:05 Possible ischemia now present Atrial flutter no longer present ST (T wave) deviation still present Electronically Signed On 06-19-17 11:10:29 CDT by Jackson Cooper
== END 2017-06-17 23:38 | disposition short-term general hospital (02) | DRG 310 ==
LOC: ER 23:43 → ERHOLD 06-17 04:04 → 3RD-ICU 06-17 08:33
PROVIDERS: ADMIT Internal Medicine; ATTEND Family Medicine
DX: I48.2 Chronic atrial fibrillation (principal); J44.9 Chronic obstructive pulmonary disease, unspecified; K21.9 Gastro-esophageal reflux disease without esophagitis; I10 Essential (primary) hypertension; J84.10 Pulmonary fibrosis, unspecified; M06.9 Rheumatoid arthritis, unspecified; G47.30 Sleep apnea, unspecified; E78.00 Pure hypercholesterolemia, unspecified; Z79.52 Long term (current) use of systemic steroids
CPT/HCPCS: 36415; 71045; 80048; 80076; 81003; 82550; 83735; 83880; 84484; 85025; 85610; 93005; 94640; 94760; 96365; 96366; 96375; 99285; J1160; J1650; J3475; J7605

== ENCOUNTER 2017-08-12 03:41 | Observation (INO) | payer OTHER ==
--- OUTSIDE RECORDS SUMMARY | 2017-08-12 03:43 | XMS REPORT | Clinical Summary ---
:1950 Author Organization [facility] Address [address] [place] [address] Care Team Providers Name Role Phone Caleb Patel DO Primary Care Provider Allergies Active Allergy Reactions Severity Noted Date Comments Ciprofloxacin 06/18/2017 Meperidine 06/18/2017 Iodine 06/18/2017 Cephalexin 06/18/2017 Levofloxacin 06/18/2017 Morphine (Pf) 06/18/2017 Penicillins 06/18/2017 Itraconazole 06/18/2017 Current Medications Prescription Sig. Disp. Refills Start End Status Date Date leflunomide (ARAVA) 20 Take 20 mg by Active MG tablet mouth daily. predniSONE (DELTASONE) Take 10 mg by Active 10 mg tablet mouth daily. clonIDINE HCl Take 0.2 mg by Active (CATAPRES) 0.2 MG mouth 2 (two) tablet times a day. amitriptyline (ELAVIL) Take 50 mg by Active 50 MG tablet mouth 2 (two) times a day. potassium chloride Take 20 mEq by Active (K-DUR,KLOR-CON) 10 MEQ mouth 2 (two) CR tablet times a day. magnesium chloride 64 Take 64 mg by Active mg tablet,delayed mouth daily. release (DR/EC) DR tablet mometasone (NASONEX) 50 2 sprays into Active mcg/actuation nasal each nostril spray daily. DULoxetine (CYMBALTA) Take 60 mg by Active 30 MG capsule mouth daily. arformoterol (BROVANA) Take 15 mcg by Active 15 mcg/2 mL solution nebulization 2 for nebulization (two) times a day. omeprazole (PriLOSEC) Take 40 mg by Active 40 MG capsule mouth 2 (two) times a day. budesonide (PULMICORT) Take 0.25 mg by Active 0.25 mg/2 mL nebulizer nebulization 2 solution (two) times a day. ipratropium (ATROVENT Inhale 2 puffs 2 Active HFA) 17 mcg/actuation (two) times a inhaler day. sulfaSALAzine Take 500 mg by Active (AZULFIDINE) 500 mg mouth 2 (two) tablet times a day. 2am and 2pm acetaminophen-codeine Take 1 tablet by Active (TYLENOL WITH CODEINE mouth 3 (three) #3) 300-30 mg per times a day as tablet needed for moderate pain. umeclidinium-vilanterol Inhale nightly. Active (ANORO ELLIPTA) 62.5-25 mcg/actuation blister with device diltiazem CD (CardIZEM Take 240 mg by Active CD) 240 MG 24 hr mouth daily. capsule etanercept (ENBREL) 25 Inject 25 mg Active mg (1 mL) injection under the skin. Patient take 25mg inj 2x/wk or 50mg inj once a wk pirfenidone 267 mg Take by mouth 3 Active capsule (three) times a day with meals. hydroCHLOROthiazide Take 25 mg by Active (HYDRODIURIL) 25 MG mouth daily. tablet propafenone SR (RYTHMOL Take 225 mg by Active SR) 225 MG 12 hr mouth 3 (three) capsule times a day. aspirin (ECOTRIN) 81 MG Take 81 mg by Discontinued enteric coated tablet mouth daily. 018 rivaroxaban (XARELTO) Take 1 tablet 30 tablet 0 06/23/19 20 mg tablet (20 mg total) by 18 018 mouth daily for 30 days. Active Problems Not on file Encounters Date Type Specialty Care Team Description 06/21/2017 Patient Outreach Quality Jani Rachel R 06/21/2017 Procedure Pass Procedural Cardiology 06/21/2017 Surgery Procedural Cardiology Kristopher Moreno MD Ep loop recorder insertion [50035 (CPT)] 06/21/2017 Procedure Pass Procedural Cardiology 06/21/2017 Surgery Procedural Cardiology Kristopher Moreno MD Ep complete ep study w ablation svt [67846 (CPT)] 06/19/2017 Anesthesia Event Procedural Cardiology Keke Perla 06/18/2017 - Hospital Encounter Cardiovascular Nicola, Atrial fibrillation 06/21/2017 MD Yanick with RVR (Primary Dx) after 08/11/2016 Family History Medical History Relation Name Comments Arthritis Brother Diabetes Brother Hyperlipidemia Brother Arthritis Father Cancer Father Diabetes Father Hypertension Father Cancer Paternal Grandfather Cancer Paternal Grandmother Hyperlipidemia Sister Hypertension Sister Relation Name Status Comments Brother Alive Father Mother Paternal Grandfather Paternal Grandmother Sister Alive Social History Tobacco Use Types Packs/Day Years Used Date Former Smoker Alcohol Use Drinks/Week oz/Week Comments Yes 2x/year Sex Assigned at Date Recorded Not on file Last Filed Vital Signs Vital Sign Reading Time Taken Blood Pressure 147/67 06/21/2017 12:34 PM CDT Pulse 86 06/21/2017 5:20 PM CDT Temperature 35.6 C (96.1 F) 06/21/2017 12:34 PM CDT Respiratory Rate 18 06/21/2017 5:20 PM CDT Oxygen Saturation 96% 06/21/2017 12:34 PM CDT Inhaled Oxygen Concentration - - Weight 107 kg (235 lb 8 oz) 06/21/2017 6:19 AM CDT Height 165.1 cm (5' 5") 06/21/2017 7:00 AM CDT Body Mass Index 39.19 06/21/2017 6:19 AM CDT Plan of Treatment Health Maintenance Due Date Last Done Comments CERVICAL CANCER SCREENING 08/17/1972 BREAST CANCER SCREENING 08/17/2001 COLON CANCER SCREENING 08/17/2001 SHINGRIX VACCINE (#1) 08/17/2001 ZOSTER VACCINE 2011 PNEUMOCOCCAL POLYSACCHARIDE VACCINE AGE 65 AND OVER 08/17/2016 PNEUMOCOCCAL-13 08/17/2016 INFLUENZA VACCINE 10/25/2017 Implants Implanted Type Area Meter Maker Device Expiration Model / Identifier Date Serial / Lot Monitor Cardiac Implant Confirm Rx - [id number] Cardiac N/A: N/A [employer] [id number] / Implanted: 06/21/2017 (Quantity not on file) [employer] / Related Products Procedures Procedure Name Priority Date/Time Associated Comments Diagnosis EP COMPLETE EP STUDY W Routine 06/21/2017 9:15 Results for this ABLATION SVT AM CDT procedure are in the results section. ECHOCARDIOGRAM 2D Routine 06/18/2017 10:22 Results for this COMPLETE W MMODE PM CDT procedure are in SPECTRAL COLOR DOPPLER the results (26591) section. after 08/11/2016 Results Cv electrophysiology procedure (06/21/2017 9:15 AM) Specimen Performing Laboratory [facility] [address] [place] [address] Impressions -Successful CTI ablation line -Bidirectional block confirmed after more than 20 minutes of wait time and adenosine injection -Successful implantable loop recorder implant RECOMMENDATION: -Bedrest for 4 hours. -Likely discharge home later today -Start Xarelto this afternoon 4 hours after obtaining hemostasis. -Followup in 10 days for wound check Narrative DATE OF OPERATION: June 21, 2017 LACE STRIPPER: Kristopher Moreno MD PREOPERATIVE DIAGNOSES: -Typical atrial flutter -Morbid obesity -Reported history of atrial fibrillation -Severe rheumatoid arthritis -Insterstitial lung disease POSTOPERATIVE DIAGNOSES: -Typical atrial flutter -Morbid obesity -Reported history of atrial fibrillation -Severe rheumatoid arthritis -Insterstitial lung disease PROCEDURES PERFORMED: -Ultrasound guided vascular access -LA pacing and recording -Atrial ablation, CTI line -Programmed stim after drug infusion -3D mapping -Intra cardiac echocardiography (ICE) -ILR implant COMPLICATIONS: None ESTIMATED BLOOD LOSS: <40cc HISTORY OF PRESENT ILLNESS: In brief, this is a66 years old female with past medical history as above, who was admitted to the hospital a few days ago with severe shortness of breath and found to be in atrial flutter with RVR.According to the patient this is her 3rd or 4th recurrence despite use of amiodarone and now propafenone. It is unclear whether patient had also atrial fibrillation in the past with RVR or just recurrent flutter. Therefore after seen in consult as an inpatient, it was decided to perform a CTI ablation line on her followed by an ILR implant. PROCEDURE IN DETAIL: Consent was obtained from the patient after a full explanation of the risks and benefits of the procedure. The patient was brought to the electrophysiology lab in the fasting state. The patient was prepared and draped in a sterile fashion. A Time Out was performed.MAC anesthesia was provided by the anesthesia service.Patient arrived to the EP lab in sinus rhythm 1% lidocaine was used to anesthetize right groin overlying the femoral vein. Using ultrasound guidance, 3 sheaths were inserted in to the right femoral vein (a long 7-Fr, long 9-Fr, and a short 8-Latvian sheath) using modified Seldinger technique.An ICE catheter sound was advanced to the RA RV junction.A baseline eye study showed normal ejection fraction and no pericardial effusion.The CTI line, His position,CS os were all marked on the Sound map.Following this the 8-Latvian sheath was upgraded to a medium curl Agilis which is ThermoCool Smart touch ST SF catheter was advanced to the right atrium. A FAM was created of IVC, SVC, right atrum, including the CS. Following this, a decapolar catheter was advanced to the CS.His position was confirmed with the ablation catheter.AH measured at 132 ms and HV at 35msec. We then proceeded was CTI line ablation.After marking the His on the map, ablation catheter was placed along to CTI line on the ventricular side with good visualization on ICE.An ablation line on the cavo tricuspid isthmus going from the tricuspid valve all the way back to the IVC was performed. A deep ridge was noted on the map towards the ventricular end of the line. Ablating there clearly caused jump in the ablation signal indicating block across the line.Trans block conduction [id number] and bidirectional block was confirmed.Power of 30-40 W was used with lesions up to 30 seconds targeting 10-15 ohms drop and changes in EGM. After 20 minutes of waiting time,12mg of adenosine was given to achieve AV block.There was no dormant reconnection observed. Bidirectional block was reconfirmed again. At this time the procedure ended.Repeat ice images showed no change. Catheters were removed from the body and local anesthetics were given. Sheaths were pulled in the lab.Patient awoke from anesthesia intact. There was no immediate complications. Following ablation procedure the patient left chest was prepped sterilely and the fourth intercostal space was marked.After infiltrating the skin with 2% lidocaine a [employer] implantable loop recorder Confirm was injected at the site with good R wave sensing confirmed.The wound was then closed with a 2-0 Vicryl then sealed with medical adhesive (Prineo) ILR: Confirm Rx [id number]; [id number]. ECG Pre/Post Op (06/21/2017 7:01 AM) Component Value Ref Range Ventricular rate 63 Atrial rate 63 MA interval 164 QRSD interval 94 QT interval 398 QTC interval 407 P axis 1 26 QRS axis 1 20 T wave axis 123 EKG impression Sinus rhythm with marked sinus arrhythmia-ST & T wave abnormality, consider lateral ischemia-Abnormal ECG-In automated comparison with ECG of 07-MAY-2012 17:12,-T wave inversion now evident in Later al leads-QT has shortened- Specimen Performing Laboratory [facility] [address] [place] [address] Type and screen (06/20/2017 5:50 PM) Component Value Ref Range ABO grouping O Rh type POS Antibody screen (gel) NEG Specimen Performing Laboratory Blood [facility] DEPARTMENT OF PATHOLOGY AND GENOMIC MEDICINE [address] [place] [address] CBC with platelet and differential (06/20/2017 4:44 AM)Only the most recent of3 resultswithin the time period is included. Component Value Ref Range WBC 4.97 4.50 - 11.00 k/uL RBC 4.57 4.20 - 5.50 m/uL HGB 12.9 12.0 - 16.0 g/dL HCT 40.7 37.0 - 47.0 % MCV 89.1 82.0 - 100.0 fL MCH 28.2 27.0 - 34.0 pg MCHC 31.7 31.0 - 37.0 g/dL RDW - SD 53.8 37.0 - 55.0 fL MPV 10.4 8.8 - 13.2 fL Platelet count 112 (L) 150 - 400 k/uL Nucleated RBC 0.00 /100 WBC Neutrophils 50.9 39.0 - 69.0 % Lymphocytes 29.2 25.0 - 45.0 % Monocytes 13.9 (H) 0.0 - 10.0 % Eosinophils 4.8 0.0 - 5.0 % Basophils 0.8 0.0 - 1.0 % Immature granulocytes 0.4Comment: "Immature granulocytes" 0.0 - 1.0 % (promyelocytes, myelocytes, metamyelocytes) Specimen Performing Laboratory Blood [facility] DEPARTMENT OF PATHOLOGY AND GENOMIC MEDICINE [address] [place] [address] Estimated GFR (06/20/2017 4:00 AM)Only the most recent of3 resultswithin the time period is included. Component Value Ref Range GFR Non Af Amer 84 mL/min/1.73 m2 GFR Af Amer >90 mL/min/1.73 m2 Comment: Chronic kidney disease: <60 mL/min/1.73m2 Kidney failure: <15 mL/min/1.73m2 The estimated GFR is calculated from the IDMS-traceable Modification of Diet in Renal Disease Equation. The accuracy of the calculation is poor when the creatinine is normal. Calculated values >90 mL/min/1.73m2 are not reported. This equation has not been validated in children (<18 years), women, the elderly (>70 years), or ethnic groups other than Caucasians and Americans. Specimen Performing Laboratory Plasma specimen [facility] DEPARTMENT PATHOLOGY AND [address] [address] Basic metabolic panel (06/20/2017 4:00 AM)Only the most recent of2 resultswithin the time period is included. Component Value Ref Range Sodium 141 135 - 148 mEq/L Potassium 3.3 (L) 3.5 - 5.0 mEq/L Chloride 98 98 - 112 mEq/L CO2 29 24 - 31 mEq/L Anion gap 14 7 - 15 mEq/L Comment: Starting from June , anion gap calculation no longer incorporates potassium. Please note the change. BUN 16 8 - 23 mg/dL Creatinine 0.7 0.5 - 0.9 mg/dL Glucose 111 (H) 65 - 99 mg/dL Calcium 8.8 8.8 - 10.2 mg/dL Specimen Performing Laboratory Plasma specimen [facility] DEPARTMENT OF PATHOLOGY AND [address] [address] Magnesium level (06/19/2017 4:00 AM)Only the most recent of2 resultswithin the time period is included. Component Value Ref Range Magnesium 1.7 1.6 - 2.4 mg/dL Specimen Performing Laboratory Plasma specimen [facility] PATHOLOGY [address] [address] Echocardiogram complete w contrast and 3D if needed (06/18/2017 10:22 PM) Specimen Performing Laboratory [facility] [address] [place] [address] Narrative Echocardiography Report [address] [place] [address] Pat.Name:CHRISTINA MARRERO Pat.ID:[id number] .Date: 06/18/2017 Refer.MD:YANICK STANLEY MD Exam Time: 9:42:00 PMStudy Type:Routine Echo Height:67inWeight: 234lb BSA: 2.16 m2 DOBAge:1950,66Y Sex: FEMALEBP:149/71 HR:68 bpmSonogrphr: Ishaan King RDCS Pat. Stat.:Inpatient Room:[facility] Study Status:Final Echo Event ID:[id number] Order ID:[id number] Reason for Study:Arrhythmias - Sustained or nonsustained atrial fibrillation, SVT, or VT History / Clinical:Hyperlipidemia, Hypertension, Shortness of Breath Procedures:2D Echo, Colorflow Doppler, Portable Race:C SUMMARY: Estimated EF is 60-64%. LA volume is moderately enlarged. LV filling pressure is normal. No intracardiac flow abnormalities detected by Doppler. FINDINGS: LV: LV size is normal. LV EF is normal. Overall wall motion is normal.Estimated EF is 60-64%. RV: RV size is normal. RV systolic function is normal. LA: LA volume is moderately enlarged. RA: RA size is normal. AO: Aortic root diameter is normal. QUEENIE: No pericardial effusion. AV: Focal calcification of AV leaflets. MV: Mild mitral annular calcification. PV: No structural PV abnormalities noted. TV: No structural TV abnormalities noted. Greer: LV relaxation is impaired. LV filling pressure is normal. Hepaticvein pressure is normal, RA pressure < 5mmHg. Other:Insufficient TR jet to estimate PA systolic pressure. No intracardiacflow abnormalities detected by Doppler. MEASUREMENTS: 2D Parasternal [place] LVOT 2.1 cmLA Ds3.9 cm LVIDd4.5 cmIndex 2.1 cm/m Ao An2.4 cm LVIDs3 cmAo Rtd 3.1 cm Index1.4 cm/m LV%fs 33.3 % LV Zzrn012.9 g(87-129) IVSd 1 cmRWT0.4 LVPWd0.9 cm LA Sng Plane LA Area 11.1 cm2(8.8-23.4) LA Vol22.8 ml Index10.5 ml/m LA LngAx 4.8 cm DOPPLER LVOT Stroke Vol LVOT 2.1 cmLVOT SV 70.2 ml LVOT TVI20.3 cmLVOT CO4.8 l/min LVOT Tm301 [id number] bpm Signed 06/19/2017 09:18 AM Sylvain Fuentes M.D. Procedure Note Interface, Radiology Results In - 06/19/2017 9:18 AM CDT Echocardiography Report [address] [place] [address] Pat.Name: CRHISTINA MARRERO AMY Pat.ID: [id number] .Date: 06/18/2017 Refer.MD: YANICK STANLEY MD Exam Time: 9:42:00 PM Study Type:Routine Echo Height: 67in Weight: 234lb BSA: 2.16 m2 Age: 6 1950,66Y Sex: FEMALE BP: 149/71 HR: 68 bpm Sonogrphr: Ishaan King RDCS Pat. Stat.:Inpatient Room: [facility] Study Status:Final Echo Event ID:[id number] Order ID: [id number] Reason for Study:Arrhythmias - Sustained or nonsustained atrial fibrillation, SVT, or VT History / Clinical:Hyperlipidemia, Hypertension, Shortness of Breath Procedures:2D Echo, Colorflow Doppler, Portable Race: C SUMMARY: Estimated EF is 60-64%. LA volume is moderately enlarged. LV filling pressure is normal. No intracardiac flow abnormalities detected by Doppler. FINDINGS: LV: LV size is normal. LV EF is normal. Overall wall motion is normal. Estimated EF is 60-64%. RV: RV size is normal. RV systolic function is normal. LA: LA volume is moderately enlarged. RA: RA size is normal. AO: Aortic root diameter is normal. QUEENIE: No pericardial effusion. AV: Focal calcification of AV leaflets. MV: Mild mitral annular calcification. PV: No structural PV abnormalities noted. TV: No structural TV abnormalities noted. Greer: LV relaxation is impaired. LV filling pressure is normal. Hepatic vein pressure is normal, RA pressure < 5mmHg. Other: Insufficient TR jet to estimate PA systolic pressure. No intracardiac flow abnormalities detected by Doppler. MEASUREMENTS: 2D Parasternal [place] LVOT 2.1 cm LA Ds 3.9 cm LVIDd 4.5 cm Index 2.1 cm/m Ao An 2.4 cm LVIDs 3 cm Ao Rtd 3.1 cm Index 1.4 cm/m LV%fs 33.3 % LV Mass 142.9 g (87-129) IVSd 1 cm RWT 0.4 LVPWd 0.9 cm LA Sng Plane LA Area 11.1 cm2 (8.8-23.4) LA Vol 22.8 ml Index 10.5 ml/m LA LngAx 4.8 cm DOPPLER LVOT Stroke Vol LVOT 2.1 cm LVOT SV 70.2 ml LVOT TVI 20.3 cm LVOT CO 4.8 l/min LVOT Tm 301 msec HR 69 bpm Signed 06/19/2017 09:18 AM Sylvain Fuentes M.D. ALT (SGPT) (06/18/2017 7:15 AM) Component Value Ref Range ALT 16 5 - 50 U/L Specimen Performing Laboratory Plasma specimen [facility] DEPARTMENT PATHOLOGY [address] [address] AST (SGOT) (06/18/2017 7:15 AM) Component Value Ref Range AST 28 10 - 35 U/L Specimen Performing Laboratory Plasma specimen [facility] DEPARTMENT OF PATHOLOGY [address] [address] Potassium level (06/18/2017 7:15 AM) Component Value Ref Range Potassium 3.3 (L) 3.5 - 5.0 mEq/L Specimen Performing Laboratory Plasma specimen [facility] DEPARTMENT OF PATHOLOGY [address] [address] Thyroid stimulating hormone (06/18/2017 4:00 AM) Component Value Ref Range TSH 5.44 (H) 0.27 - 4.20 uIU/mL Specimen Performing Laboratory Plasma specimen [facility] DEPARTMENT PATHOLOGY [address] [address] T4, free (06/18/2017 4:00 AM) Component Value Ref Range T4, free 1.1 0.9 - 1.7 ng/dL Specimen Performing Laboratory Plasma specimen [facility] DEPARTMENT PATHOLOGY [address] [address] Comprehensive metabolic panel (06/18/2017 4:00 AM) Component Value Ref Range Sodium 137 135 - 148 mEq/L Potassium SEE COMMENT 3.5 - 5.0 mEq/L Comment: Footnote--------- Unable to perform testing, specimen is hemolyzed.Recollect requested for K AST ALT.Lorelei Bre/D9W notified by BB at06/18/201705:27.Credit issued. Chloride 96 (L) 98 - 112 mEq/L CO2 28 24 - 31 mEq/L Anion gap 13 7 - 15 mEq/L Comment: Starting from June , anion gap calculation no longer incorporates potassium. Please note the change. BUN 15 8 - 23 mg/dL Creatinine 0.7 0.5 - 0.9 mg/dL Glucose 89 65 - 99 mg/dL Calcium 9.3 8.8 - 10.2 mg/dL Protein 7.4 6.3 - 8.3 g/dL Comment: [place] 4.6-7.0 g/dL 1 week 4.4-7.6 g/dL 7 months-1year5.1-7.3 g/dL 1-2 years5.6-7.5 g/dL >3 years6.0-8.0 g/dL 18-150 6.3-8.3 g/dL Albumin 2.9 (L) 3.5 - 5.0 g/dL A/G ratio 0.6 (L) 0.7 - 3.8 Alkaline phosphatase 53 35 - 104 U/L AST SEE COMMENTComment: Footnote--------- 10 - 35 U/L ALT SEE COMMENTComment: Footnote--------- 5 - 50 U/L Total bilirubin 0.3 0.0 - 1.2 mg/dL Specimen Performing Laboratory Plasma specimen [facility] DEPARTMENT OF PATHOLOGY AND GENOMIC MEDICINE [address] [place] [address] after 08/11/2016 Insurance Payer Benefit Plan / Group Subscriber ID Type Phone Address MEDICARE MEDICARE PART A AND B xxxxxxxxxx Medicare [place], [place] COMMERCIAL MISC MISC COMMERCIAL xxxxxx-xx Commercial
--- OUTSIDE RECORDS SUMMARY | 2017-08-12 03:43 | XMS REPORT | Clinical Summary ---
:1950 Author Organization [facility] Address [address] [place] [address] Phone Care Team Providers Name Role Phone Unavailable Primary Care Provider Unavailable Allergies Active Allergy Reactions Severity Noted Date Comments Meperidine 07/30/2012 Iodine And Iodide Containing Products 07/30/2012 Cephalexin 07/30/2012 Levofloxacin 07/30/2012 Morphine 07/30/2012 Penicillins 07/30/2012 Itraconazole 07/30/2012 Current Medications Prescription Sig. Disp. Refills Start Date End Date Status leflunomide (ARAVA) 20 Take 20 mg by Active MG tablet mouth daily. sulfaSALAzine Take 500 mg by Active (AZULFIDINE) 500 mg mouth 2 (two) tablet times daily. furosemide (LASIX) 40 MG Take 40 mg by Active tablet mouth 2 (two) times daily. olmesartan (BENICAR) 40 Take 40 mg by Active MG tablet mouth daily. cloNIDine (CATAPRES) 0.2 Take 0.2 mg by Active MG tablet mouth 2 (two) times daily . potassium chloride Take by mouth Active (KAYCIEL) 10 % solution daily. fluticasone-salmeterol Inhale 1 puff Active (ADVAIR) 250-50 mcg/dose into the lungs diskus inhaler daily. TIOTROPIUM BROMIDE Inhale into the Active (SPIRIVA WITH HANDIHALER lungs. INHL) pantoprazole (PROTONIX) Take 40 mg by Active 40 MG tablet mouth daily. mometasone (NASONEX) 50 2 sprays by Nasal Active mcg/actuation nasal route daily. spray gabapentin (NEURONTIN) Take 600 mg by Active 300 MG capsule mouth 2 (two) times daily . traMADol (ULTRAM) 50 mg Take 50 mg by Active tablet mouth every 6 (six) hours as needed. roflumilast (DALIRESP) Take 500 mcg by Active 500 mcg Tab mouth daily. nebivolol 20 mg Tab Take 1 tablet (20 30 tablet 0 08/15/2013 Active mg total) by mouth daily. omeprazole (PRILOSEC) 40 Take 40 mg by Active MG capsule mouth daily. venlafaxine (EFFEXOR) 75 Take 75 mg by Active MG tablet mouth 2 (two) times daily. predniSONE (DELTASONE) 7.5 mg daily . 08/15/2013 Active 20 MG tablet SULFAMETHOXAZOLE/TRIMETH Take 1 tablet by Active OPRIM (BACTRIM ORAL) mouth 2 (two) times daily. methylPREDNISolone Take 7.5 mg by Active (MEDROL) 4 MG tablet mouth daily With additional 2 mg. nitrofurantoin Take 100 mg by Active (MACRODANTIN) 100 MG mouth 2 (two) capsule times daily. Missing or Non-Formulary Take 50 mg by Active Medication mouth imbeda . amLODIPine (NORVASC) 10 Take 10 mg by Active MG tablet mouth daily 5 mg at night . potassium chloride SA Take 20 mEq by Active (K-DUR,KLOR-CON) 20 MEQ mouth 2 (two) tablet times daily. DULoxetine (CYMBALTA) 30 Take 30 mg by Active MG capsule mouth 2 (two) times daily. arformoterol (BROVANA) Take 15 mcg by Active 15 mcg/2 mL nebulizer nebulization 2 solution (two) times daily. umeclidinium-vilanterol Inhale 1 puff by Active (ANORO ELLIPTA) 62.5-25 mouth via inhaler mcg/actuation DsDv daily. pirfenidone (ESBRIET) Take 801 mg by Active 267 mg Cap mouth 3 (three) times daily. HYDROcodone-acetaminophe Take 1 tablet by Active n (VICODIN) 5-500 mg per mouth every 6 tablet (six) hours as needed for Pain. methadone (DOLOPHINE) 10 Take 10 mg by Active MG tablet mouth every 6 (six) hours as needed for Pain. pregabalin (LYRICA) 25 Take 25 mg by Active MG capsule mouth 2 (two) times daily. sucralfate (CARAFATE) 1 Take 1 g by mouth Active gram tablet 4 (four) times daily. cholecalciferol, vitamin Take 10,000 Units Active D3, 1,000 unit capsule by mouth daily . amitriptyline (ELAVIL) Take 50 mg by Active 50 MG tablet mouth 2 (two) times daily. propafenone (RYTHMOL) Take 150 mg by Active 150 MG tablet mouth every 8 (eight) hours. aspirin 81 MG chewable Take 81 mg by Active tablet mouth daily. dilTIAZem (CARDIZEM) 120 Take 120 mg by Active MG tablet mouth daily . hydroCHLOROthiazide Take 25 mg by Active (HYDRODIURIL) 25 MG mouth daily. tablet clindamycin (CLEOCIN) Take 150 mg by Active 150 MG capsule mouth 3 (three) times daily. Hospital, Clinic, or Ordered Dose Route Frequency Start Date End Date Status Other Facility Administered Medication acetaminophen 650 MG Oral Once 09/09/2013 Active (TYLENOL) tablet 650 mg sodium chloride 0.9% IV Continuous 04/04/2014 Active (NS) infusion sodium chloride 0.9% IV Once 03/29/2016 Active (NS) infusion sodium chloride 0.9% IV Continuous 05/30/2016 Active (NS) infusion heparin (PF) 500 Units Cath Once 05/30/2016 Active injection syringe 500 Units sodium chloride 0.9% IV Once 12/14/2016 Active (NS) infusion immune globulin 45 g IV Once 06/13/2017 Active (human) (PRIVIGEN) injection 45 g sodium chloride 0.9% IV Once 08/30/2016 08/30/2016 Ended (NS) infusion diphenhydrAMINE 25 MG IV Once 08/30/2016 08/30/2016 Ended (BENADRYL) injection 25 mg immune globulin 45 g IV Once 08/30/2016 08/30/2016 Ended (human) and maltose (OCTAGAM) injection 45 g immune globulin 45 g IV Once 09/28/2016 09/28/2016 Ended (human) and maltose (OCTAGAM) injection 45 g diphenhydrAMINE 25 MG IV Once 09/28/2016 09/28/2016 Ended (BENADRYL) injection 25 mg sodium chloride 0.9% IV Once 09/28/2016 09/28/2016 Ended (NS) infusion sodium chloride 0.9% IV Once 10/31/2016 10/31/2016 Ended (NS) infusion diphenhydrAMINE 25 MG IV Once 10/31/2016 10/31/2016 Ended (BENADRYL) injection 25 mg immune globulin 45 g IV Once 10/31/2016 10/31/2016 Ended (human) and maltose (OCTAGAM) injection 45 g diphenhydrAMINE 25 MG IV Once 12/14/2016 12/14/2016 Ended (BENADRYL) injection 25 mg immune globulin 45 g IV Once 12/14/2016 12/14/2016 Ended (human) (PRIVIGEN) injection 45 g immune globulin 45 g IV Once 01/11/2017 01/11/2017 Ended (human) (PRIVIGEN) injection 45 g diphenhydrAMINE 25 MG IV Once 01/11/2017 01/11/2017 Ended (BENADRYL) injection 25 mg sodium chloride 0.9% IV Once 01/11/2017 01/11/2017 Ended (NS) infusion sodium chloride 0.9% IV Once 02/15/2017 02/15/2017 Ended (NS) infusion diphenhydrAMINE 25 MG IV Once 02/15/2017 02/15/2017 Ended (BENADRYL) injection 25 mg immune globulin 45 g IV Once 02/15/2017 02/15/2017 Ended (human) (PRIVIGEN) injection 45 g cloNIDine HCl 0.1 MG Oral Once 02/15/2017 02/15/2017 Ended (CATAPRES) tablet 0.1 mg cloNIDine HCl 0.1 MG Oral Once PRN 02/15/2017 02/15/2017 Ended (CATAPRES) tablet 0.1 mg immune globulin 45 g IV Once 03/17/2017 03/17/2017 Ended (human) (PRIVIGEN) injection 45 gIndications: CIDP (chronic inflammatory demyelinating polyneuropathy) (HCC) sodium chloride 0.9% IV Once 03/17/2017 03/17/2017 Ended (NS) infusionIndications: CIDP (chronic inflammatory demyelinating polyneuropathy) (HCC) diphenhydrAMINE 25 MG IV Once 03/17/2017 03/17/2017 Ended (BENADRYL) injection 25 mgIndications: CIDP (chronic inflammatory demyelinating polyneuropathy) (HCC) immune globulin 45 g IV Once 04/14/2017 04/18/2017 Discontinued (human) (PRIVIGEN) injection 45 g immune globulin 45 g IV Once 04/18/2017 04/18/2017 Ended (human) and maltose (OCTAGAM) injection 45 gIndications: CIDP (chronic inflammatory demyelinating polyneuropathy) ([facility]) sodium chloride 0.9% IV Once 04/18/2017 04/18/2017 Ended (NS) infusion diphenhydrAMINE 25 MG IV Once 04/18/2017 04/18/2017 Ended (BENADRYL) injection 25 mg immune globulin 45 g IV Once 05/16/2017 05/16/2017 Ended (human) and maltose (OCTAGAM) injection 45 g sodium chloride 0.9% IV Once 05/16/2017 05/16/2017 Ended (NS) infusion diphenhydrAMINE 25 MG IV Once 05/16/2017 05/16/2017 Ended (BENADRYL) injection 25 mg sodium chloride 0.9% IV Once 06/13/2017 06/13/2017 Ended (NS) infusion diphenhydrAMINE 25 MG IV Once 06/13/2017 06/13/2017 Ended (BENADRYL) injection 25 mg immune globulin 45 g IV Once 06/13/2017 06/13/2017 Ended (human) (PRIVIGEN) injection 45 g immune globulin 45 g IV Once 07/11/2017 07/11/2017 Ended (human) and maltose (OCTAGAM) injection 45 gIndications: CIDP (chronic inflammatory demyelinating polyneuropathy) ([facility]) sodium chloride 0.9% IV Once 07/11/2017 07/11/2017 Ended (NS) infusionIndications: CIDP (chronic inflammatory demyelinating polyneuropathy) ([facility]) diphenhydrAMINE 25 MG IV Once 07/11/2017 07/11/2017 Ended (BENADRYL) injection 25 mgIndications: CIDP (chronic inflammatory demyelinating polyneuropathy) ([facility]) immune globulin 45 g IV Once 08/10/2017 08/10/2017 Ended (human) and maltose (OCTAGAM) injection 45 gIndications: CIDP (chronic inflammatory demyelinating polyneuropathy) ([facility]) sodium chloride 0.9% IV Once 08/10/2017 08/10/2017 Ended (NS) infusion diphenhydrAMINE 25 MG IV Once 08/10/2017 08/10/2017 Ended (BENADRYL) injection 25 mg Active Problems Problem Noted Date COPD (chronic obstructive pulmonary disease) ([facility]) 08/09/2013 Bronchiectasis ([facility]) 08/09/2013 Hypogammaglobulinemia ([facility]) 12/03/2012 CIDP (chronic inflammatory demyelinating polyneuropathy) ([facility]) 09/28/2012 Encounters Date Type Specialty Care Team Description 08/10/2017 Procedure visit Oncology Rian Olivera, CIDP (chronic inflammatory MD demyelinating polyneuropathy) Jin Morris ([facility]) MD Kenney Andrews L R, RN 07/11/2017 Procedure visit Oncology Rian Olivera, CIDP (chronic inflammatory MD demyelinating polyneuropathy) Jin Morris ([facility]) (Primary Dx) MD Bakari Andrews Shalonda, RN 06/13/2017 Procedure visit Oncology Rian Olivera, Hypogammaglobulinemia ([facility]) (Primary Dx) Jin Morris MD Alexander, L R, RN 05/16/2017 Procedure visit Oncology Rian Olivera, Hypogammaglobulinemia ([facility]) (Primary Dx) Jin Morris MD Alexander, L R, RN 04/18/2017 Procedure visit Oncology Rian Olivera, CIDP (chronic inflammatory MD demyelinating polyneuropathy) Jin Morris ([facility]) (Primary Dx) MD Bakari Andrews Shalonda, RN 04/14/2017 Procedure visit Oncology Rian Olivera, Canceled (Patient) Jin Coppola MD 03/17/2017 Procedure visit Oncology Rian Olivera, CIDP (chronic inflammatory MD demyelinating polyneuropathy) Jin Morris ([facility]) (Primary Dx) MD Bekah Andrews Rachel L, RN 02/15/2017 Procedure visit Oncology Rian Olivera, Hypogammaglobulinemia ([facility]) (Primary Dx) Jin Morris MD Raibon, Danielle L, RN 01/11/2017 Procedure visit Oncology Rian Olivera, Pulmonary emphysema, unspecified emphysema type Jin Morris ([facility]) (Primary Dx) MD Kenney Andrews L R, RN 12/14/2016 Procedure visit Oncology Rian Olivera, CIDP (chronic inflammatory MD demyelinating polyneuropathy) Jin Morris ([facility]) MD Kenney Andrews L R RN 10/31/2016 Procedure visit Oncology Rian Olivera, CIDP (chronic inflammatory MD demyelinating polyneuropathy) Jin Morris ([facility]) (Primary Dx) MD Mara Andrews Danielle L, RN 10/12/2016 Procedure visit Radiology Jin Morris ILD (interstitial lung MD Darryl disease) ([facility]) 10/11/2016 Outside Orders Radiology Jin Morris ILD (interstitial lung MD Darryl disease) ([facility]) (Primary Dx) 09/28/2016 Procedure visit Oncology Rian Olivera, CIDP (chronic inflammatory MD demyelinating polyneuropathy) Jin Morris (HCC) MD Bakari Andrews Shalonda, RN 08/30/2016 Procedure visit Oncology Rian Olivera, Hypogammaglobulinemia ([facility]) (Primary Dx) Jin Morris MD Alexander, L R, RN after 08/11/2016 Family History Medical History Relation Name Comments Gout Brother Hyperlipidemia Brother Gout Brother Hyperlipidemia Brother Arthritis Father Diabetes Father Gout Father Hypertension Father Lung cancer Father Melanoma Father Prostate cancer Father Emphysema Maternal Grandfather Colon cancer Maternal Grandmother Liver cancer Mother Colon cancer Paternal Grandfather Lung cancer Paternal Grandmother Hyperlipidemia Sister Hypertension Sister Sleep apnea Sister Relation Name Status Comments Brother Alive Brother Alive Father Maternal Grandfather Maternal Grandmother Mother Paternal Grandfather Paternal Grandmother Sister Alive Social History Tobacco Use Types Packs/Day Years Used Date Former Smoker Cigarettes Smokeless Tobacco: Former User Comments: 30 years, 3ppd Alcohol Use Drinks/Week oz/Week Comments Yes 1 Glasses of wine 0.6 on occasion Sex Assigned at Date Recorded Not on file Last Filed Vital Signs Vital Sign Reading Time Taken Blood Pressure 148/72 08/10/2017 3:45 PM CDT Pulse 81 08/10/2017 3:45 PM CDT Temperature 36.7 C (98.1 F) 08/10/2017 3:45 PM CDT Respiratory Rate 20 08/10/2017 3:45 PM CDT Oxygen Saturation 99% 08/10/2017 3:45 PM CDT Inhaled Oxygen Concentration - - Weight 108.4 kg (239 lb) 07/11/2017 11:30 AM CDT Height 172.7 cm (5' 8") 02/15/2017 11:00 AM 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 Component Value Ref Range BUN 14 7 - 21 mg/dL Specimen Performing Laboratory Blood [address] [address] Creatinine (07/11/2017 2:00 PM)Only the most recent of3 resultswithin the time period is included. Component Value Ref Range Creatinine 0.78 0.57 - 1.25 mg/dL EGFR 74Comment: ESTIMATED GFR IS NOT ACCURATE mL/min/1.73 sq m CREATININE CLEARANCE IN PREDICTING GLOMERULAR FILTRATION RATE. ESTIMATED GFR IS NOT APPLICABLE FOR DIALYSIS PATIENTS. Specimen Performing Laboratory Blood [address] [address] BUN and Creatinine (01/11/2017 2:09 PM)Only the most recent of2 resultswithin the time period is included. Component Value Ref Range BUN 10 7 - 21 mg/dL Creatinine 0.65 0.57 - 1.25 mg/dL EGFR 91Comment: ESTIMATED GFR IS NOT ACCURATE mL/min/1.73 sq m CREATININE CLEARANCE IN PREDICTING GLOMERULAR FILTRATION RATE. ESTIMATED GFR IS NOT APPLICABLE FOR DIALYSIS PATIENTS. Specimen Performing Laboratory Blood [address] [address] [address] chest without IV contrast (10/12/2016 3:17 PM) Specimen Performing Laboratory GE RIS Narrative FINAL REPORT CT scan of the chest. CLINICAL HISTORY: Interstitial lung disease. COMPARISON STUDY: November 13, 2015. TECHNIQUE: High-resolution images were acquired through the thorax in the prone, supine, inspiration and patient positions. This was followed by contiguous helical slices. No intravenous contrast was administered. This exam was performed according to our department dose optimization program which includes automated exposure control, adjustment of the mA and/or kV according to the patient's size and/or use of iterative reconstruction technique. FINDINGS: The mediastinum demonstrates an enlarged main pulmonary artery measuring 3.8 cm. Atherosclerosis is seen. No suspicious masses are identified. There are no pleural effusions. The visualized portions of the upper abdomen demonstrate a 3.5 x 3.1 cm low-attenuation lesion in the spleen, stable from previous. The spleen is enlarged measuring 14.2 cm in AP diameter. The tracheobronchial tree is clear with no endobronchial lesions. No bronchiectasis is noted. The pulmonary parenchyma is assessed with high-resolution and helical techniques. Again seen is moderate pulmonary fibrosis which is most pronounced in the peripheral portions of the lungs and affects both the lung apices and bases preferentially. Areas of honeycombing are seen. No significant air trapping is identified. Stable scattered tiny pulmonary nodules are seen. For example, there is a 7 mm nodule in the left lower lobe on image 30 and an 8 mm subpleural nodule in the right lower lobe on image 29. Bone windows demonstrate degenerative changes. Postsurgical changes are seen in the cervical spine. IMPRESSION: 1. Stable pulmonary fibrosis. The reported diagnosis is UIP. 2. Stable tiny nodules. 3. Stable splenic lesion. Signed: Fabio Hussein MD Report Verified Date/Time:10/12/2016 15:56:32 Reading Location: [facility] Diagnostic Imaging Reading Room - [place] [address] Procedure Note Interface, External Ris In - 10/12/2016 3:58 PM CDT FINAL REPORT CT scan of the chest. CLINICAL HISTORY: Interstitial lung disease. COMPARISON STUDY: November 13, 2015. TECHNIQUE: High-resolution images were acquired through the thorax in the prone, supine, inspiration and patient positions. This was followed by contiguous helical slices. No intravenous contrast was administered. This exam was performed according to our department dose optimization program which includes automated exposure control, adjustment of the mA and/or kV according to the patient's size and/or use of iterative reconstruction technique. FINDINGS: The mediastinum demonstrates an enlarged main pulmonary artery measuring 3.8 cm. Atherosclerosis is seen. No suspicious masses are identified. There are no pleural effusions. The visualized portions of the upper abdomen demonstrate a 3.5 x 3.1 cm low-attenuation lesion in the spleen, stable from previous. The spleen is enlarged measuring 14.2 cm in AP diameter. The tracheobronchial tree is clear with no endobronchial lesions. No bronchiectasis is noted. The pulmonary parenchyma is assessed with high-resolution and helical techniques. Again seen is moderate pulmonary fibrosis which is most pronounced in the peripheral portions of the lungs and affects both the lung apices and bases preferentially. Areas of honeycombing are seen. No significant air trapping is identified. Stable scattered tiny pulmonary nodules are seen. For example, there is a 7 mm nodule in the left lower lobe on image 30 and an 8 mm subpleural nodule in the right lower lobe on image 29. Bone windows demonstrate degenerative changes. Postsurgical changes are seen in the cervical spine. IMPRESSION: 1. Stable pulmonary fibrosis. The reported diagnosis is UIP. 2. Stable tiny nodules. 3. Stable splenic lesion. Signed: Fabio Hussein MD Report Verified Date/Time: 10/12/2016 15:56:32 Reading Location: [facility] Diagnostic Imaging Reading Room - [place] [address] after 08/11/2016
--- OUTSIDE RECORDS SUMMARY | 2017-08-12 03:43 | XMS REPORT ---
:1950 Author Organization [facility] Address [address] [place] [address] Care Team Providers Name Role Phone JENNIFER WALSH Unavailable Unavailable Problems This patient has no known problems. Allergies, Adverse Reactions, Alerts This patient has no known allergies or adverse reactions. Medications This patient has no known medications. Results Test Description Test Time Test Comments Text Results Atomic Results Result Comments BUN 2017-07-11 15:50:00 Test Item Value Reference Range Comments BLOOD UREA NITROGEN (BEAKER) (test clkw=371) 14 mg/dL 7-21 [id number] 15:50:00 Test Item Value Reference Range Comments CREATININE (BEAKER) (test 0.78 mg/dL 0.57-1.25 txpt=275) EGFR (BEAKER) (test 74 mL/min/1.73 sq m ESTIMATED GFR IS NOT gnuc=5984) ACCURATE CREATININE CLEARANCE IN PREDICTING GLOMERULAR FILTRATION RATE. ESTIMATED GFR IS NOT APPLICABLE FOR DIALYSIS PATIENTS. [id number] 14:55:00 Test Item Value Reference Range Comments BLOOD UREA NITROGEN (BEAKER) (test yeaa=287) 11 mg/dL 7-21 [id number] 14:55:00 Test Item Value Reference Range Comments CREATININE (BEAKER) (test 0.65 mg/dL 0.57-1.25 esbd=382) EGFR (BEAKER) (test 91 mL/min/1.73 sq m ESTIMATED GFR IS NOT ugaq=6992) ACCURATE CREATININE CLEARANCE IN PREDICTING GLOMERULAR FILTRATION RATE. ESTIMATED GFR IS NOT APPLICABLE FOR DIALYSIS PATIENTS. BUN AND [id number] 15:59:00 Test Item Value Reference Range Comments BLOOD UREA NITROGEN 10 mg/dL 7-21 (BEAKER) (test allu=974) CREATININE (BEAKER) (test 0.65 mg/dL 0.57-1.25 vwzo=263) EGFR (BEAKER) (test 91 mL/min/1.73 sq m ESTIMATED GFR IS NOT szmk=3642) ACCURATE CREATININE CLEARANCE IN PREDICTING GLOMERULAR FILTRATION RATE. ESTIMATED GFR IS NOT APPLICABLE FOR DIALYSIS PATIENTS. [id number] 14:45:00 Test Item Value Reference Range Comments BLOOD UREA NITROGEN (BEAKER) (test ztfk=515) 13 mg/dL 7-21 [id number] 14:45:00 Test Item Value Reference Range Comments CREATININE (BEAKER) (test 0.74 mg/dL 0.57-1.25 zsnj=303) EGFR (BEAKER) (test 79 mL/min/1.73 sq m ESTIMATED GFR IS NOT tuoq=4906) ACCURATE CREATININE CLEARANCE IN PREDICTING GLOMERULAR FILTRATION RATE. ESTIMATED GFR IS NOT APPLICABLE FOR DIALYSIS PATIENTS. BUN AND [id number] 14:55:00 Test Item Value Reference Range Comments BLOOD UREA NITROGEN 13 mg/dL 7-21 (BEAKER) (test rtmv=309) CREATININE (BEAKER) (test 0.69 mg/dL 0.57-1.25 ssbn=466) EGFR (BEAKER) (test 85 mL/min/1.73 sq m ESTIMATED GFR IS NOT awrx=2830) ACCURATE CREATININE CLEARANCE IN PREDICTING GLOMERULAR FILTRATION RATE. ESTIMATED GFR IS NOT APPLICABLE FOR DIALYSIS PATIENTS. [id number] 17:24:00 Test Item Value Reference Range Comments BLOOD UREA NITROGEN (BEAKER) (test qoyo=084) 12 mg/dL 7-21 [id number] 17:24:00 Test Item Value Reference Range Comments CREATININE (BEAKER) (test 0.67 mg/dL 0.57-1.25 iqfn=073) EGFR (BEAKER) (test 89 mL/min/1.73 sq m ESTIMATED GFR IS NOT dmed=4108) ACCURATE CREATININE CLEARANCE IN PREDICTING GLOMERULAR FILTRATION RATE. ESTIMATED GFR IS NOT APPLICABLE FOR DIALYSIS PATIENTS.
[2017-08-12] MEDS ORDERED: METOPROLOL TAR 50 MG TAB ONE (04:10)
[2017-08-12] MEDS ORDERED: METOPROLOL TARTRATE 5 MG/5 ML INJ IV ONE (04:11)
[2017-08-12] MEDS ORDERED: DIGOXIN 0.25 MG/ML AMP ONE (04:16)
[2017-08-12 04:25] LABS: Absolute Lymphocytes (CBC) 1.5 K/uL (0.7-4.9); Absolute Monocytes 0.6 K/uL (0.1-1.3); Absolute Neutrophil 5.2 K/uL (1.8-8.0); Eosinophils % 1.6 % (0-4.4); Hematocrit 40.5 % (36.0-45.0); Lymphocytes % 20.1 % (15.3-44.8); MCH 27.6 pg (27.0-35.0); MCV 85.9 fL (80-100); Monocytes % 8.6 % (3.3-12.3); RBC Red Blood Cell Count 4.72 M/uL (3.86-4.86)
[2017-08-12 04:29] LABS: Protime INR 1.64
[2017-08-12 04:38] LABS: Potassium 3.3 mEq/L (3.6-5.0)
[2017-08-12] MEDS ORDERED: ENOXAPARIN 100 MG/ML SYR SQ ONE (04:38)
[2017-08-12 04:44] LABS: Albumin 3.1 g/dL (3.2-5.5); Bilirubin Direct 0.1 mg/dL (0-0.2); Bilirubin Total 0.3 mg/dL (0.3-1.2); Magnesium 1.5 mg/dL (1.8-2.5)
[2017-08-12 04:48] LABS: CKMB Creatine Kinase MB 2.2 ng/ml (0.3-4.0)
[2017-08-12] MEDS ORDERED: MAGNESIUM SULFATE 1 gm IVPB 1 GM/100 ML BAG IV ONE ×2 (05:24→18:20)
--- NOTE | 2017-08-12 05:25 | EDPHYS ---
Physician Documentation [facility] Name: Marlen Santacruz Age: 66 yrs Sex: Female : 1950 Arrival Date: 08/12/2017 Time: 03:44 Bed 16 Private MD: ED Physician Jd Roque HPI: 08/12 05:21 This 66 yrs old Female presents to ER via EMS with complaints of chest pain, joan sob and a fib. 05:21 The patient has shortness of breath at rest, with light activity. Onset: The joan symptoms/episode began/occurred just prior to arrival. Duration: The symptoms are continuous, and are steadily getting worse. The patient's shortness of breath has no apparent modifying factors. The patient or guardian reports chest pain that is located primarily in the substernal area. Onset: just prior to arrival. The patient presents with a history of irregular heart beat, heart racing. Context: The symptoms occur at rest. Historical: - Allergies: 03:53 Ciprofloxacin; ao 03:53 Demerol; ao 03:53 Ibuprofen; ao 03:53 Iodine; ao 03:53 Keflex; ao 03:53 Levaquin; ao 03:53 Morphine; ao 03:53 PENICILLINS; ao 03:53 Sporanox; ao - Home Meds: 04:12 Anoro Ellipta 62.5-25 mcg/actuation inhalation dsdv 1 puff once daily [Active]; Arava aa1 20 mg Oral tab 1 tab once daily [Active]; aspirin 81 mg Oral TbEC 1 tab once daily [Active]; Atrovent Inhl twice a day [Active]; Brovana 15 mcg/2 mL inhalation nebu 2 mL 2 times per day [Active]; budesonide 0.25mg Oral CECX 2 caps twice a day [Active]; Cartia XT 150 mg Oral once daily [Active]; clonidine HCl 0.2 mg Oral tab 2 times per day [Active]; duloxetine 30 mg Oral cpDR 2 times per day [Active]; Esbriet 267 mg Oral cap 3 caps after meals [Active]; hydrochlorothiazide 25 mg Oral tab 1 tab once daily [Active]; immune globul,gamma(IgG)-sorb-IgA 0 to 50 mcg/mL intravenous every 4 wks [Active]; Magnesium Oxide Oral daily [Active]; Nasonex 50 mcg/actuation Nasal spry once daily [Active]; omeprazole 40 mg Oral cpDR 1 cap 2 times per day [Active]; potassium chloride 20 mEq Oral TbTQ 2 times per day [Active]; prednisone 10 mg Oral tab once daily [Active]; Propafenone Oral three times a day [Active]; Pulmicort Inhl [Active]; sulfasalazine 500 mg Oral tab 1 tab twice a day [Active]; Tylenol #3 Oral [Active]; - PMHx: 03:53 ADD/ADHD; Arthritis; Atrial Fib; COPD; Depression; GERD; Hypertension; Polyps Colon; ao Polyps Stomach; Rheumatoid Arthritis; Staph Infection Left Great Toe; - PSHx: 03:53 Heart stents; ao - Immunization history:: Adult Immunizations unknown. - Social history:: Smoking status: Patient/guardian denies using tobacco, Patient/guardian denies using alcohol, street drugs. - Family history:: not pertinent. ROS: 05:21 Constitutional: Negative for fever, chills, and weight loss, Eyes: Negative for injury, joan pain, redness, and discharge, ENT: Negative for injury, pain, and discharge, Neck: Negative for injury, pain, and swelling, Respiratory: Negative for shortness of breath, cough, wheezing, and pleuritic chest pain, Abdomen/GI: Negative for abdominal pain, nausea, vomiting, diarrhea, and constipation, Back: Negative for injury and pain, : Negative for injury, bleeding, discharge, and swelling, MS/Extremity: Negative for injury and deformity, Skin: Negative for injury, rash, and discoloration, Neuro: Negative for headache, weakness, numbness, tingling, and seizure, Psych: Negative for depression, anxiety, suicide ideation, homicidal ideation, and hallucinations, Allergy/Immunology: Negative for hives, rash, and allergies, Endocrine: Negative for neck swelling, polydipsia, polyuria, polyphagia, and marked weight changes, Hematologic/Lymphatic: Negative for swollen nodes, abnormal bleeding, and unusual bruising. 05:21 Cardiovascular: Positive for chest pain, palpitations. Exam: 05:22 Constitutional: This is a well developed, well nourished patient who is awake, alert, joan and in no acute distress. Head/Face: Normocephalic, atraumatic. Eyes: Pupils equal round and reactive to light, extra-ocular motions intact. Lids and lashes normal. Conjunctiva and sclera are non-icteric and not injected. Cornea within normal limits. Periorbital areas with no swelling, redness, or edema. ENT: Nares patent. No nasal discharge, no septal abnormalities noted. Tympanic membranes are normal and external auditory canals are clear. Oropharynx with no redness, swelling, or masses, exudates, or evidence of obstruction, uvula midline. Mucous membranes moist. Neck: Trachea midline, no thyromegaly or masses palpated, and no cervical lymphadenopathy. Supple, full range of motion without nuchal rigidity, or vertebral point tenderness. No Meningismus. Chest/axilla: Normal chest wall appearance and motion. Nontender with no deformity. No lesions are appreciated. Respiratory: Lungs have equal breath sounds bilaterally, clear to auscultation and percussion. No rales, rhonchi or wheezes noted. No increased work of breathing, no retractions or nasal flaring. Abdomen/GI: Soft, non-tender, with normal bowel sounds. No distension or tympany. No guarding or rebound. No evidence of tenderness throughout. Back: No spinal tenderness. No costovertebral tenderness. Full range of motion. Female : Normal external genitalia. Skin: Warm, dry with normal turgor. Normal color with no rashes, no lesions, and no evidence of cellulitis. MS/ Extremity: Pulses equal, no cyanosis. Neurovascular intact. Full, normal range of motion. Neuro: Awake and alert, GCS 15, oriented to person, place, time, and situation. Cranial nerves II-XII grossly intact. Motor strength 5/5 in all extremities. Sensory grossly intact. Cerebellar exam normal. Normal gait. Psych: Awake, alert, with orientation to person, place and time. Behavior, mood, and affect are within normal limits. 05:22 Cardiovascular: Rate: tachycardic, Rhythm: irregularly irregular, Pulses: Pulses are 4+ in bilateral radial, brachial, femoral, popliteal, posterior tibial and and dorsalis pedis arteries.. Heart sounds: normal, Edema: is not appreciated, JVD: is not appreciated. Vital Signs: 03:48 BP 149 / 120; Pulse 166; Resp 20; Temp 98.6(O); Pulse Ox 98% on R/A; Weight 108.86 kg ao (R); Height 5 ft. 4 in. (162.56 cm) (R); Pain 0/10; 04:00 BP 124 / 87; Pulse 129; Resp 26; Pulse Ox 98% on 3 lpm NC; ao 04:30 BP 157 / 103; Pulse 84; Resp 22; Pulse Ox 98% on 3 lpm NC; ao 04:43 BP 168 / 101; Pulse 86; Resp 18; Pulse Ox 99% on 3 lpm NC; ao 05:05 BP 170 / 102; Pulse 70; Resp 19; Pulse Ox 98% on 3 lpm NC; ao 06:15 BP 162 / 109; Pulse 60; Resp 16; Pulse Ox 98% on 3 lpm NC; Pain 0/10; ao 07:15 BP 110 / 69; Pulse 51; Resp 20; Pulse Ox 96% on R/A; rb1 03:48 Body Mass Index 41.20 (108.86 kg, 162.56 cm) ao MDM: 04:04 Patient medically screened. [facility] 05:29 Data reviewed: vital signs, nurses notes, lab test result(s), EKG, radiologic studies, joan plain films. 08/12 03:46 Order name: Basic Metabolic Panel; Complete Time: 05:19 08/12 03:46 Order name: BNP; Complete Time: 05:08/12 03:46 Order name: CBC with Diff; Complete Time: 05:19 08/12 03:46 Order name: Ckmb; Complete Time: 05:19 08/12 03:46 Order name: CPK; Complete Time: 05:19 08/12 03:46 Order name: LFT's; Complete Time: 05:19 08/12 03:46 Order name: Magnesium; Complete Time: 05:19 08/12 03:46 Order name: PT-INR; Complete Time: 05:19 08/12 03:46 Order name: Ptt, Activated; Complete Time: 05:19 08/12 03:46 Order name: Troponin (emerg Dept Use Only); Complete Time: 05:19 08/12 03:46 Order name: XRAY Chest (1 view) [facility] 08/12 04:10 Order name: TSH [facility] 08/12 04:29 Order name: Urine Dipstick--Ancillary (enter results) 08/12 06:15 Order name: T4 Free EDKS 08/12 03:46 Order name: EKG; Complete Time: 03:48 aa1 08/12 03:46 Order name: Cardiac monitoring; Complete Time: 03:57 aa1 08/12 03:46 Order name: EKG - Nurse/Tech; Complete Time: 03:57 aa1 08/12 03:46 Order name: IV Saline Lock; Complete Time: 03:57 aa 08/12 03:46 Order name: Labs collected and sent; Complete Time: 04:18 aa1 08/12 05:28 Order name: CONS Physician Consult [facility] 08/12 05:28 Order name: Echo with Doppler EDKS 08/12 03:46 Order name: O2 Per Protocol; Complete Time: 03:57 aa 08/12 03:46 Order name: O2 Sat Monitoring; Complete Time: 03:57 aa1 08/12 03:46 Order name: Urine Dipstick-Ancillary (obtain specimen); Complete Time: 06:24 aa Administered Medications: 04:15 Drug: Lopressor 5 mg Route: IVP; Site: right antecubital; ao 04:17 Drug: Lopressor (metoprolol TARTRATE) 50 mg Route: PO; ao 06:00 Follow up: Response: No adverse reaction ao 04:22 Drug: Lopressor 5 mg Route: IVP; Site: right antecubital; ao 04:28 Drug: Digoxin 0.5 mg Route: IVP; Site: right antecubital; ao 06:00 Follow up: Response: No adverse reaction ao 04:30 Drug: Lopressor 5 mg Route: IVP; Site: right antecubital; ao 05:59 Follow up: Response: No adverse reaction; Other; Patient converted to Sinus ao 04:40 Drug: Lovenox 1 mg/kg Route: Sub-Q; Site: abdomen; ao 06:00 Follow up: Response: No adverse reaction ao 05:28 Drug: Magnesium Sulfate 1 grams Route: IVPB; Infused Over: 1 hrs; Site: right ao antecubital; 06:24 Follow up: IV Status: Completed infusion ao 06:07 Drug: Potassium Effervescent Tablet 50 mEq Route: PO; ao 06:24 Follow up: Response: No adverse reaction ao 07:01 Drug: AtroVENT Aerosol 0.5 mg {Note: As orderd by Dr Winslow.} Route: Inhalation; ao 07:02 Drug: Albuterol 2.5 mg {Note: As ordered by Dr Winslow.} Route: Inhalation; ao 07:50 Drug: Zofran 4 mg Route: IVP; Site: right antecubital; rb1 08:04 Follow up: Medication administered upon discharge from the ED. Pt. went to the floor. rb1 Disposition: 08/12/17 05:25 Hospitalization ordered by Valentin Ray for Observation. Preliminary diagnosis are Atrial fibrillation and flutter, Chest pain, unspecified, Hypomagnesemia, Hypokalemia. - Bed requested for Telemetry/MedSurg (observation). - Status is Observation. rb1 - Condition is Fair. - Problem is new. - Symptoms have improved. UTI on Admission? No Signatures: Dispatcher [employer] EDMS Meredith Zhang RN Aissatou Gonsalves RN RN aa1 Jd Roque MD MD cha Barber, Rebecca RN Sheldon Landrum RN Ariadna Castro Corrections: (The following items were deleted from the chart) 05:29 05:25 Hospitalization Ordered by Valentin Ray MD for Observation. Preliminary joan diagnosis is Atrial fibrillation and flutter; Chest pain, unspecified; Hypomagnesemia. Bed requested for Telemetry/MedSurg (observation). Status is Observation. Condition is Fair. Problem is new. Symptoms have improved. UTI on Admission? No. joan 05:54 05:29 08/12/2017 05:25 Hospitalization Ordered by Valentin Ray MD for Observation. eb Preliminary diagnosis is Atrial fibrillation and flutter; Chest pain, unspecified; Hypomagnesemia; Hypokalemia. Bed requested for Telemetry/MedSurg (observation). Status is Observation. Condition is Fair. Problem is new. Symptoms have improved. UTI on Admission? No. joan 06:28 05:54 08/12/2017 05:25 Hospitalization Ordered by Valentin aRy MD for Observation. kl Preliminary diagnosis is Atrial fibrillation and flutter; Chest pain, unspecified; Hypomagnesemia; Hypokalemia. Bed requested for Telemetry/MedSurg (observation). Status is Observation. Condition is Fair. Problem is new. Symptoms have improved. UTI on Admission? No. eb 08:01 06:28 08/12/2017 05:25 Hospitalization Ordered by Valentin Ray MD for Observation. rb1 Preliminary diagnosis is Atrial fibrillation and flutter; Chest pain, unspecified; Hypomagnesemia; Hypokalemia. Bed requested for Telemetry/MedSurg (observation). Status is Observation. Condition is Fair. Problem is new. Symptoms have improved. UTI on Admission? No. kl
--- NOTE | 2017-08-12 05:25 | ER ---
Nurse's Notes [facility] Name: Marlen Santacruz Age: 66 yrs Sex: Female : 1950 Arrival Date: 08/12/2017 Time: 03:44 Bed 16 Private MD: Diagnosis: Atrial fibrillation and flutter;Chest pain, unspecified;Hypomagnesemia;Hypokalemia Presentation: 08/12 03:45 Presenting complaint: EMS states: "Patient has a history of AFib and today she was ao complaining of chest pain and SOB. Patient was pale and diaphoretic on AFib. Patient received Adenosine on scene and got her RN to the 60.". Transition of care: patient was not received from another setting of care. Onset of symptoms is unknown. Initial Sepsis Screen: Does the patient meet any 2 criteria? No. Patient's initial sepsis screen is negative. Does the patient have a suspected source of infection? No. Patient's initial sepsis screen is negative. Care prior to arrival: Medication(s) given: Adenosine, x 1. 03:45 Method Of Arrival: EMS: [facility] ao 03:45 Acuity: LINDEN 2 ao Historical: - Allergies: 03:53 Ciprofloxacin; ao 03:53 Demerol; ao 03:53 Ibuprofen; ao 03:53 Iodine; ao 03:53 Keflex; ao 03:53 Levaquin; ao 03:53 Morphine; ao 03:53 PENICILLINS; ao 03:53 Sporanox; ao - Home Meds: 04:12 Anoro Ellipta 62.5-25 mcg/actuation inhalation dsdv 1 puff once daily [Active]; Arava aa1 20 mg Oral tab 1 tab once daily [Active]; aspirin 81 mg Oral TbEC 1 tab once daily [Active]; Atrovent Inhl twice a day [Active]; Brovana 15 mcg/2 mL inhalation nebu 2 mL 2 times per day [Active]; budesonide 0.25mg Oral CECX 2 caps twice a day [Active]; Cartia XT 150 mg Oral once daily [Active]; clonidine HCl 0.2 mg Oral tab 2 times per day [Active]; duloxetine 30 mg Oral cpDR 2 times per day [Active]; Esbriet 267 mg Oral cap 3 caps after meals [Active]; hydrochlorothiazide 25 mg Oral tab 1 tab once daily [Active]; immune globul,gamma(IgG)-sorb-IgA 0 to 50 mcg/mL intravenous every 4 wks [Active]; Magnesium Oxide Oral daily [Active]; Nasonex 50 mcg/actuation Nasal spry once daily [Active]; omeprazole 40 mg Oral cpDR 1 cap 2 times per day [Active]; potassium chloride 20 mEq Oral TbTQ 2 times per day [Active]; prednisone 10 mg Oral tab once daily [Active]; Propafenone Oral three times a day [Active]; Pulmicort Inhl [Active]; sulfasalazine 500 mg Oral tab 1 tab twice a day [Active]; Tylenol #3 Oral [Active]; - PMHx: 03:53 ADD/ADHD; Arthritis; Atrial Fib; COPD; Depression; GERD; Hypertension; Polyps Colon; ao Polyps Stomach; Rheumatoid Arthritis; Staph Infection Left Great Toe; - PSHx: 03:53 Heart stents; ao - Immunization history:: Adult Immunizations unknown. - Social history:: Smoking status: Patient/guardian denies using tobacco, Patient/guardian denies using alcohol, street drugs. - Family history:: not pertinent. Screenin:56 Abuse screen: Denies threats or abuse. Denies injuries from another. Nutritional ao screening: No deficits noted. Tuberculosis screening: No symptoms or risk factors identified. Fall Risk None identified. Assessment: 03:54 General: Appears in no apparent distress. uncomfortable, obese, well developed, ao Behavior is cooperative, agitated. Pain: Complains of pain in chest Pain does not radiate. Pain currently is 5 out of 10 on a pain scale. Neuro: Level of Consciousness is awake, alert, obeys commands, Oriented to person, place, time, situation, Appropriate for age Moves all extremities. Weakness Speech is normal, Facial symmetry appears normal. Cardiovascular: Capillary refill is > 3 seconds Patient's skin is warm and dry. Respiratory: Airway is patent Respiratory effort is even, unlabored, Respiratory pattern is regular, symmetrical. GI: Abdomen is round obese. : No signs and/or symptoms were reported regarding the genitourinary system. EENT: No signs and/or symptoms were reported regarding the EENT system. Derm: No signs and/or symptoms reported regarding the dermatologic system. Derm: Skin is intact, Skin is dry, Skin is pale, Skin temperature is warm. Musculoskeletal: No signs and/or symptoms reported regarding the musculoskeletal system. 04:40 Reassessment: Patient seem to converted into Sinus. EKG to be do to confirm. ao 05:05 Reassessment: Patient appears in no apparent distress at this time. Patient and/or ao family updated on plan of care and expected duration. Pain level reassessed. Patient is alert, oriented x 3, equal unlabored respirations, skin warm/dry/pink. 06:25 Reassessment: Patient appears in no apparent distress at this time. Patient and/or ao family updated on plan of care and expected duration. Pain level reassessed. Patient is alert, oriented x 3, equal unlabored respirations, skin warm/dry/pink. Patient to be admitted to the hospital. Patient is aware and agree with POC. 06:55 Reassessment: Received an verbal order from Dr Winslow to medicated patient with ao Albuterol and Atrovent Neb as patient is wheezing and Daniel. 07:00 General: Appears in no apparent distress. comfortable, Behavior is calm, cooperative. rb1 Pain: Denies pain. Neuro: Level of Consciousness is awake, alert, obeys commands, Oriented to person, place, time, situation. Cardiovascular: Capillary refill < 3 seconds is brisk in bilateral fingers. Cardiovascular: Rhythm is sinus bradycardia. Respiratory: Airway is patent Respiratory effort is even, unlabored, Respiratory pattern is regular, symmetrical. Derm: Skin is pink, warm \\T\\ dry. 07:42 Reassessment: Called report to MANJINDER King. Information for the SB[facility] was given, all rb1 questions asked and answered. 07:46 Reassessment: Called Dr. Winslow to request medication for nausea, received order for rb1 Zofran 4 mg IVP once. Vital Signs: 03:48 BP 149 / 120; Pulse 166; Resp 20; Temp 98.6(O); Pulse Ox 98% on R/A; Weight 108.86 kg ao (R); Height 5 ft. 4 in. (162.56 cm) (R); Pain 0/10; 04:00 BP 124 / 87; Pulse 129; Resp 26; Pulse Ox 98% on 3 lpm NC; ao 04:30 BP 157 / 103; Pulse 84; Resp 22; Pulse Ox 98% on 3 lpm NC; ao 04:43 BP 168 / 101; Pulse 86; Resp 18; Pulse Ox 99% on 3 lpm NC; ao 05:05 BP 170 / 102; Pulse 70; Resp 19; Pulse Ox 98% on 3 lpm NC; ao 06:15 BP 162 / 109; Pulse 60; Resp 16; Pulse Ox 98% on 3 lpm NC; Pain 0/10; ao 07:15 BP 110 / 69; Pulse 51; Resp 20; Pulse Ox 96% on R/A; rb1 03:48 Body Mass Index 41.20 (108.86 kg, 162.56 cm) ao ED Course: 03:44 Patient arrived in ED. tl2 03:45 Sheldon Travis, RN is Primary Nurse. ao 03:48 Triage completed. ao 03:54 Arm band placed on right wrist. Patient placed in an exam room, on a stretcher, on ao oxygen, on alarm security or surveillance monitor, on pulse oximetry, Patient notified of wait time. 03:57 X-ray completed. Portable x-ray completed in exam room. Patient tolerated procedure bb2 well. 03:57 Patient has correct armband on for positive identification. pvc monitor on. Pulse ao ox on. NIBP on. 03:58 XRAY Chest (1 view) In Process Unspecified. EDMS 03:58 Maintain EMS IV. Dressing intact. Good blood return noted. Site clean \\T\\ dry. Gauge \\T\\ ao site: 20 R AC. 04:04 Jd Roque MD is Attending Physician. joan 05:23 Valentin Ray MD is Hospitalizing Provider. joan 07:06 Report given to MANJINDER Taveras. ao 07:57 No provider procedures requiring assistance completed. Patient admitted, IV remains in rb1 place. Administered Medications: 04:15 Drug: Lopressor 5 mg Route: IVP; Site: right antecubital; ao 04:17 Drug: Lopressor (metoprolol TARTRATE) 50 mg Route: PO; ao 06:00 Follow up: Response: No adverse reaction ao 04:22 Drug: Lopressor 5 mg Route: IVP; Site: right antecubital; ao 04:28 Drug: Digoxin 0.5 mg Route: IVP; Site: right antecubital; ao 06:00 Follow up: Response: No adverse reaction ao 04:30 Drug: Lopressor 5 mg Route: IVP; Site: right antecubital; ao 05:59 Follow up: Response: No adverse reaction; Other; Patient converted to Sinus ao 04:40 Drug: Lovenox 1 mg/kg Route: Sub-Q; Site: abdomen; ao 06:00 Follow up: Response: No adverse reaction ao 05:28 Drug: Magnesium Sulfate 1 grams Route: IVPB; Infused Over: 1 hrs; Site: right ao antecubital; 06:24 Follow up: IV Status: Completed infusion ao 06:07 Drug: Potassium Effervescent Tablet 50 mEq Route: PO; ao 06:24 Follow up: Response: No adverse reaction ao 07:01 Drug: AtroVENT Aerosol 0.5 mg {Note: As orderd by Dr Winslow.} Route: Inhalation; ao 07:02 Drug: Albuterol 2.5 mg {Note: As ordered by Dr Winslow.} Route: Inhalation; ao 07:50 Drug: Zofran 4 mg Route: IVP; Site: right antecubital; rb1 08:04 Follow up: Medication administered upon discharge from the ED. Pt. went to the floor. rb1 Intake: Outcome: 05:25 Decision to Hospitalize by Provider. joan 07:57 Admitted to Tele accompanied by tech, via wheelchair, room 416, with chart, Report rb1 called to MANJINDER King. Information from the SBAR was given. All questions asked and answered. 07:57 Condition: stable 07:57 Instructed on the need for admit. 07:57 Patient left the ED. rb1 Signatures: Dispatcher [employer] EDMS Aissatou Almaguer RN RN aa1 Jd Roque MD MD cha Barber, Rebecca RN RN rb1 Sheldon Travis RN RN ao Knox, Taylor, RN RN tl2 Sandrine Ragland2 Corrections: (The following items were deleted from the chart) 08:02 08:01 Patient left the ED. rb1 rb1
[2017-08-12 05:32] LABS: Thyroid Stimulating Hormone 8.84 uIU/mL (0.34-5.60)
[2017-08-12 05:34] LABS: Urine Blood TRACE (NEG); Urine Glucose NEGATIVE (NEG); Urine Protein 2+ (NEG); Urine Specific Gravity 1.015 (1.005-1.030)
[2017-08-12] MEDS ORDERED: POTASSIUM 25 MEQ EFFERV TAB ONE (06:02)
--- NOTE | 2017-08-12 06:15 | P.HP ---
Certification for Inpatient Patient admitted to: Observation With expected LOS: <2 Midnights Practitioner: I am a practitioner with admitting privileges, knowledge of patient current condition, hospital course, and medical plan of care. Services: Services provided to patient in accordance with Admission requirements found in Title 42 Section 412.3 of the Code of Federal Regulations Patient History Date of Service: 08/12/17 Reason for admission: Afib with RVR History of Present Illness: Ms Santacruz is a 66 years old woman with history of HTN, COPD, A.Fib difficult to control, S/P ablation 2 month ago, who start about 23:30 last night with palpitations and SOB. She checked his pulse at home and was 115 bpm. Subsequent she start feeling worse, more SOB, diaphoretic and mild chest pain, she checked her HR again and was 187 bpm. The patient denied any fever, chills or increasing cough lately. In ER she received IV digoxine, IV and oral metoprolol , she finally converted to SR, and her HR decreased to 64 bpm. Allergies cephalexin monohydrate [From Keflex] Allergy (Intermediate, Verified 06/17/17 05 :46) Itching/Hives/Rash iodine [Iodine] Allergy (Intermediate, Verified 06/17/17 05:46) Itching/Hives/Rash itraconazole [From Sporanox] Allergy (Intermediate, Verified 06/17/17 05:46) Itching/Hives/Rash levofloxacin [From Levaquin] Allergy (Intermediate, Verified 06/17/17 05:46) Itching/Hives/Rash meperidine HCl [From Demerol] Allergy (Intermediate, Verified 06/17/17 05:46) Itching/Hives/Rash Penicillins Allergy (Intermediate, Verified 06/17/17 05:46) Itching/Hives/Rash morphine Allergy (Mild, Verified 06/17/17 05:46) Itching/Hives/Rash ciprofloxacin Allergy (Verified 06/17/17 05:46) Itching/Hives/Rash ibuprofen Allergy (Verified 06/17/17 05:46) Itching/Hives/Rash Home Medications: Sulfasalazine [Sulfazine] 2 tab PO BID 09/10/11 Aspirin [Adult Low Dose Aspirin EC] 81 mg PO DAILY #30 11/27/16 Budesonide [Pulmicort*] 2 puff IH BID #1 11/27/16 Clonidine HCl 0.2 mg PO BID #60 11/27/16 Leflunomide [Arava] 20 mg PO DAILY #30 11/27/16 Mometasone Furoate [Nasonex] 2 spr NS DAILY #1 11/27/16 Pirfenidone [Esbriet] 3 cap PO TIDWM #120 11/27/16 Potassium Chloride [Klor-Con M20] 1 tab PO BID #60 11/27/16 Prednisone [Deltasone*] 10 mg PO DAILY #30 11/27/16 Codeine/APAP [Tylenol #3*] 1 tab PO TIDP PRN 03/06/17 Diltiazem HCl [Cartia Xt] 240 mg PO DAILY 03/06/17 Hydrochlorothiazide 25 mg PO DAILY 03/06/17 Propafenone [Rythmol*] 225 mg PO TID #60 tab 03/06/17 Omeprazole [Prilosec] 40 mg PO BID 06/07/17 Arformoterol Tartrate [Brovana] 2 ml IH BID 06/17/17 Duloxetine [Cymbalta Dalayed Release Pellets] 60 mg PO DAILY 06/17/17 Ipratropium Mdi [Atrovent Hf Inhaler*] 1 puff IH BID 06/17/17 - Past Medical/Surgical History Diabetic: No -: Rheumatoid Arthritis -: Interstitial Lung Disease -: Sleep Apnea -: [place] -: osteopenia -: High Cholesterol -: COPD -: Afib -: Bronchiectis -: Hiatal Hernia -: GERD -: depression -: Tonsilectomy -: Appendectomy, Kelle -: Hysterectomy -: Multiple ganglion cyst removal -: Knee Replacement rohini -: Tendon repair bilateral wrist -: Knuckle removal in toes on R foot/hands -: Multiple bursectomy excision - Family History Sister -: Hypertension, Lung disease, Other (see notes) Notes: rotoscoliasis, sleep apnea, hyperlipidemia Brother -: Hypertension, Diabetes, Other (see notes) Notes: gout, hyperlipidemia Mother -: Hypertension, Cancer Notes: klatskin tumor Father -: Heart disease, Hypertension, Lung disease, Diabetes, Cancer, Other (see notes ) Notes: lung cancer, gout - Social History Smoking Status: Former smoker Alcohol use: No CD- Drugs: No Caffeine use: Yes Place of Residence: Home Review of Systems 10-point ROS is otherwise unremarkable Physical Examination - Physical Exam General: Alert, In no apparent distress HEENT: Atraumatic, PERRLA, Mucous membr. moist/pink, EOMI, Sclerae nonicteric Neck: Supple, 2+ carotid pulse no bruit, No LAD, Without JVD or thyroid abnormality Respiratory: Normal air movement, Expiratory wheezes (scattered wheezing bilateral) Cardiovascular: Normal S1 S2, Irregular heart rate/rhythm Gastrointestinal: Normal bowel sounds, No tenderness Musculoskeletal: No tenderness Integumentary: No rashes Neurological: Normal speech, Normal strength at 5/5 x4 extr, Normal tone, Normal affect Lymphatics: No axilla or inguinal lymphadenopathy - Studies Laboratory Data (last 24 hrs) 08/12/17 04:05: PT 19.4 H, INR 1.64, APTT 40.7 H 08/12/17 04:05: WBC 7.5, Hgb 13.0, Hct 40.5, Plt Count 208 08/12/17 04:05: B-Natriuretic Peptide 401 H 08/12/17 04:05: Sodium 139, Potassium 3.3 L, BUN 14, Creatinine 0.72, Glucose 119, Magnesium 1.5 L, Total Bilirubin 0.3, AST 20, ALT 15, Alkaline Phosphatase 68 Assessment and Plan - Problems (Diagnosis) (1) COPD (chronic obstructive pulmonary disease) Onset Date: 06/09/17 Current Visit: No Status: Chronic Qualifiers: COPD type: chronic bronchitis (2) Pulmonary fibrosis Onset Date: 10/21/16 Current Visit: No Status: Chronic (3) Atrial fibrillation with rapid ventricular response Onset Date: 12/23/16 Current Visit: No Status: Resolved (4) Hypothyroidism Current Visit: Yes Status: Acute Qualifiers: Hypothyroidism type: unspecified Qualified Code(s): E03.9 - Hypothyroidism , unspecified - Plan The patient will be admitted to the hospital due to A.Fib with RVR, she needs Cardiology re-evaluation and medicatin adjustment since she recently has had an ablation, and already recurred with A.fib. She is hemodynamically stable, will resume xarelto, and the rest of the medication, once are verified. TSH is elevated will start low dose of levothyroxine - Advance Directives Does patient have a Living Will: Yes Does patient have a Durable POA for Healthcare: Yes - Code Status/Comfort Care Code Status Assessed: Yes Code Status: Full Code
--- NOTE | 2017-08-12 06:28 | EKG ---
Test Date: 2017-08-12 Test Time: 03:46:12 Resource Recovery Specialist: BENJI MEASUREMENT RESULTS: Intervals: Rate: 160 [place]: QRSD: 84 QT: 296 QTc: 482 [place]: P: [place]: QRS: 47 T: 147 INTERPRETIVE STATEMENTS: Atrial fibrillation with rapid ventricular response Nonspecific ST and T wave abnormality Abnormal ECG Compared to ECG 06/17/2017 08:36:56 Sinus bradycardia no longer present Possible ischemia no longer present ST (T wave) deviation still present Electronically Signed On 08-12-17 06:27:44 CDT by Jackson Cooper
[2017-08-12] MEDS ORDERED: IPRATROPIUM BROM 0.5MG/2.5ML ONE (06:49)
[2017-08-12] MEDS ORDERED: ALBUTEROL 2.5 MG/3 ML NEB SOL ONE (06:49)
--- NOTE | 2017-08-12 07:32 | EKG ---
Test Date: 2017-08-12 Test Time: 04:42:30 Shipping Manager: BENJI MEASUREMENT RESULTS: Intervals: Rate: 85 SC: 156 QRSD: 84 QT: 352 QTc: 418 [place]: P: 47 SC: 156 QRS: 33 T: 71 INTERPRETIVE STATEMENTS: Normal sinus rhythm Nonspecific T wave abnormality Abnormal ECG Compared to ECG 08/12/2017 03:46:12 T-wave abnormality now present Atrial fibrillation no longer present ST (T wave) deviation no longer present Electronically Signed On 08-12-17 07:31:27 CDT by Jackson Cooper
[2017-08-12] MEDS ORDERED: ONDANSETRON 4 MG/2 ML VIAL ONE (07:50)
[2017-08-12] MEDS ORDERED: ONDANSETRON 4 MG/2 ML VIAL IV PRN (08:26)
--- NOTE | 2017-08-12 10:08 | RAD REPORT ---
EXAM DESCRIPTION: RAD - Chest Single View - 08/12/2017 3:58 am CLINICAL HISTORY: Chest pain, shortness of breath COMPARISON: June 17 TECHNIQUE: AP portable chest image was obtained 0354 hours . FINDINGS: Lung volumes are normal. Patient has a baseline prominence of the lung markings. Interstit ial and alveolar opacities are present in both lung avila more pronounced in the right base and righ t apex. Heart size is upper normal, similar to comparison. Vasculature is not outside of normal range . No pneumothorax or large pleural effusion. No gross bony abnormality seen. No acute aortic findings suspected. IMPRESSION: Bilateral pneumonia versus mild CHF/volume overload. Correlation is needed with clinical findings and lab findings.
[2017-08-12] MEDS: IPRATROPIUM BROM 0.5MG/2.5ML NEB PRN ×3 (10:27→20:21)
--- NOTE | 2017-08-12 11:12 | P.PN ---
Subjective Date of Service: 08/12/17 Chief Complaint: Afib with RVR Subjective: Improving (Patient is doing better she was admitted with a rapid AFib recent ablation) Review of Systems Respiratory: Shortness of Breath Physical Examination - Vital Signs Temperature: 97.8 F Blood Pressure: 133/72 Pulse: 53 Respirations: 18 Pulse Ox (%): 98 - Physical Exam General: Alert, Oriented x3 Respiratory: Crackles/rales (Bilateral basilar crackles), Rhonchi/gurgles Cardiovascular: No edema, Normal S1 S2 - Studies Laboratory Data (last 24 hrs) 08/12/17 04:05: PT 19.4 H, INR 1.64, APTT 40.7 H 08/12/17 04:05: WBC 7.5, Hgb 13.0, Hct 40.5, Plt Count 208 08/12/17 04:05: B-Natriuretic Peptide 401 H 08/12/17 04:05: Sodium 139, Potassium 3.3 L, BUN 14, Creatinine 0.72, Glucose 119, Magnesium 1.5 L, Total Bilirubin 0.3, AST 20, ALT 15, Alkaline Phosphatase 68 Assessment & Plan - Problems (Diagnosis) (1) Atrial fibrillation with RVR Onset Date: 10/21/16 Current Visit: No Status: Acute Plan: Patient is 66 years of age admitted with rapid AFib she has recently had a cardiac ablation done seen by Cardiology resume all medications history of COPD pulmonary fibrosis patient's tsh is elevated she is not on any a thyroid medication patient is hypokalemic I suspect is from the thiazide diuretic advice patient to stop taking hydrochlorothiazide consider spironolactone his last echocardiogram was normal she is seeing a lunch wagon operator in [place] apparently she was prescribed anti fibrotic therapy for pulmonary fibrosis been she could not afford and.
--- NOTE | 2017-08-12 12:58 | CON ---
History Of Present Illness: Mrs. Santacruz is a woman who has had paroxysmal atrial fibrillation in Jun. She underwent an ablation procedure. I am pretty sure they ablated atrial flutter and did not d o a complete atrial fibrillation ablation. We will have to check with Dr. Downs and Dr. Isaacs about that. For a while, we did well not having any atrial fibrillation, but it has just been a little ove r a month. She came to our hospital with atrial fibrillation in the emergency room. She received lo ts of beta blockers as an outpatient. She was on diltiazem. She received adenosine. We cardioverte d her. She is in sinus rhythm now. However, she is having pauses on telemetry. She has underlying rheumatoid arthritis. In the past, she has been on propafenone, amiodarone, Betapace and basically f duy most of those. I do not think she has been on flecainide. She has had a cardiac cath that rossi wed normal coronary arteries. Physical Examination: General: 5 feet 4 inches, 240 pounds. Obese, alert, oriented, pleasant, not in distress. Lungs: Clear. Heart: Regular rate and rhythm. Abdomen: Soft. Extremities: Normal, although distal pulses are diminished. Her EKG now shows sinus rhythm. Telemetry shows sinus rhythm. I will ask her to avoid taking diltia zem, beta-blockers, digoxin, or anything that would slow the heart. At this point, I will talk with Dr. Isaacs about exactly what procedure she had apart from EKGs. If they just did an atrial flutter procedure and now she has atrial fib, it is probably a good idea to do a complete pulmonary vein isol ation. If that has already been done, then we will consider stronger antiarrhythmic drugs either fle cainide, dofetilide or trying amiodarone again. I am reluctant to try amiodarone because of her underlying rheumatoid arthritis an d pulmonary fibrosis. JAVON/KSENIA Voice ID: [id number] Report ID: [id number]
[2017-08-12] MEDS: ARFORMOTEROL TARTRATE 15 MCG/2 ML VIAL.NEB IH PRN ×2 (14:14→20:21)
[2017-08-12] MEDS: HYDROCODONE/APAP 10/325 TAB PO PRN (15:46)
[2017-08-12 16:16] VITALS: BMI 41.1
[2017-08-12] MEDS ORDERED: RIVAROXABAN 20 MG TABLET PO SCH (17:00)
[2017-08-12] MEDS: PANTOPRAZOLE 40MG TABLET PO SCH (17:13)
[2017-08-12] MEDS: predniSONE 10 MG TAB PO SCH (17:14)
[2017-08-12] MEDS ORDERED: POTASSIUM 25 MEQ EFFERV TAB PO ONE (18:21)
[2017-08-12] MEDS ORDERED: CLONIDINE HCL 0.2 MG PO SCH (21:00)
[2017-08-12] MEDS ORDERED: POTASSIUM CHLORIDE PO SCH (21:00)
[2017-08-12] MEDS ORDERED: guaiFENesin 100 MG/5 ML UCUP PO SCH (21:00)
[2017-08-12] MEDS ORDERED: HOME MED 1 EA UNK (Omeprazole [Prilosec] 40 MG) PO SCH (21:00)
[2017-08-12] MEDS ORDERED: SULFASALAZINE PO SCH (21:00)
[2017-08-12] MEDS: SULFASALAZINE 500 MG E.C. TAB PO SCH (21:52)
[2017-08-12] MEDS: cloNIDine HCl 0.1 MG TAB PO SCH (21:53)
[2017-08-12] MEDS: POTASSIUM CL SA 10 MEQ TAB PO SCH (21:54)
[2017-08-12] MEDS: guaiFENesin 100 MG/5 ML UCUP PO PRN (21:55)
[2017-08-13] MEDS: HYDROCODONE/APAP 10/325 TAB PO PRN (05:08)
[2017-08-13] MEDS: PANTOPRAZOLE 40MG TABLET PO SCH (05:13)
[2017-08-13] MEDS: guaiFENesin 100 MG/5 ML UCUP PO PRN (05:15)
[2017-08-13 06:03] LABS: Magnesium 1.7 mg/dL (1.8-2.5); Potassium 4.3 mEq/L (3.6-5.0)
[2017-08-13] MEDS ORDERED: MAGNESIUM SULFATE 1 gm IVPB 1 GM/100 ML BAG IV ONE (06:09)
[2017-08-13] MEDS ORDERED: NA CHLORIDE 0.9% 100 ML ONE (06:49)
[2017-08-13] MEDS: IPRATROPIUM BROM 0.5MG/2.5ML NEB PRN (07:52)
[2017-08-13 08:41] VITALS: BP 102/78; TEMP 97
[2017-08-13] MEDS ORDERED: DILTIAZEM HCL 120 MG SR CAP PO SCH (09:00)
[2017-08-13] MEDS ORDERED: FLUTICASONE NS SCH (09:00)
[2017-08-13] MEDS ORDERED: LEFLUNOMIDE 20 MG PO SCH (09:00)
[2017-08-13] MEDS ORDERED: hydroCHLOROthiazide 25 MG TAB PO SCH (09:00)
[2017-08-13] MEDS ORDERED: DULOXETINE 30 MG CAP PO SCH (09:00)
[2017-08-13] MEDS ORDERED: SPIRONOLACTONE 25 MG TABLET PO SCH ×2 (09:00)
[2017-08-13] MEDS ORDERED: DILTIAZEM HCL 240 MG PO SCH (09:00)
[2017-08-13] MEDS: predniSONE 10 MG TAB PO SCH (09:13)
[2017-08-13] MEDS: cloNIDine HCl 0.1 MG TAB PO SCH (09:13)
[2017-08-13] MEDS: POTASSIUM CL SA 10 MEQ TAB PO SCH (09:14)
[2017-08-13] MEDS: SULFASALAZINE 500 MG E.C. TAB PO SCH (09:19)
--- NOTE | 2017-08-13 09:55 | P.PN ---
Subjective Date of Service: 08/13/17 Chief Complaint: Afib with RVR Subjective: Improving (Patient is doing well no further episodes of AFib a slight cough) Review of Systems Unremarkable Physical Examination - Vital Signs Temperature: 97.0 F Blood Pressure: 102/78 Pulse: 69 Respirations: 18 Pulse Ox (%): 92 - Physical Exam General: Alert, Oriented x3 Neck: Supple Respiratory: Clear to auscultation bilaterally Cardiovascular: No edema, Regular rate/rhythm Assessment & Plan - Problems (Diagnosis) (1) Atrial fibrillation with RVR Onset Date: 10/21/16 Current Visit: No Status: Acute Plan: Patient is 66 years of age admitted with AFib is done well as far as I know she has had no further episodes of AFib seen by Cardiology problem is for hypokalemia I have advised her to stops hydrochlorothiazide has been changed to spironolactone (2) Abnormal thyroid function test Current Visit: Yes Status: Acute Plan: Patient's TSH is elevated although patient's has normal T3 and T4 which TSH needs to be repeated in about 4 weeks informed the patient to follow up with possible discharge today if okay with Dr. zapata I have also instructed her to stop the hydrochlorothiazide and change to spironolactone if okay with cardiology
[2017-08-13 10:15] VITALS: O2SAT 92
--- NOTE | 2017-08-13 12:01 | P.DS ---
Admission Date: 08/12/17 Discharge Date: 08/13/17 Disposition: ROUTINE DISCHARGE Discharge Condition: FAIR Reason for Admission: Afib with RVR Consultations: Dr. Cooper - Jessica (1) Atrial fibrillation with RVR Onset Date: 10/21/16 Current Visit: No Status: Acute (2) Abnormal thyroid function test Current Visit: Yes Status: Acute Brief History of Present Illness: Patient is a 66 years of age admitted with rapid AFib Hospital Course: She did well during the course of her stay there was no episodes of AFib seen by Cardiology remained hemodynamically stable to be discharged home follow-up with the primary care doctor and cardiology Vital Signs/Physical Exam: Temp Pulse Resp BP Pulse Ox 97.0 F 69 18 102/78 92 08/13/17 09:55 08/13/17 09:55 08/13/17 09:55 08/13/17 09:55 08/13/17 09:55 Laboratory Data at Discharge: WBC 7.5 K/uL (4.3-10.9) 08/12/17 04:05 Hgb 13.0 g/dL (12.0-15.0) 08/12/17 04:05 Hct 40.5 % (36.0-45.0) 08/12/17 04:05 Plt Count 208 K/uL (152-406) 08/12/17 04:05 PT 19.4 SECONDS (9.5-12.5) H 08/12/17 04:05 INR 1.64 08/12/17 04:05 APTT 40.7 SECONDS (24.3-36.9) H 08/12/17 04:05 Sodium 137 mEq/L (135-145) 08/13/17 05:05 Potassium 4.3 mEq/L (3.6-5.0) 08/13/17 05:05 BUN 16 mg/dL (6-20) 08/13/17 05:05 Creatinine 0.70 mg/dL (0.44-1.00) 08/13/17 05:05 Glucose 119 mg/dL (65-120) 08/13/17 05:05 Magnesium 1.7 mg/dL (1.8-2.5) L 08/13/17 05:05 Total Bilirubin 0.3 mg/dL (0.3-1.2) 05/19/18 04:05 AST 20 IU/L (10-42) 08/12/17 04:05 ALT 15 IU/L (10-60) 08/12/17 04:05 Alkaline Phosphatase 68 IU/L (42-121) 08/12/17 04:05 B-Natriuretic Peptide 401 pg/ml (<=100) H 08/12/17 04:05 Home Medications: Sulfasalazine [Sulfazine] 2 tab PO BID 09/10/11 Clonidine HCl 0.2 mg PO BID #60 11/27/16 Leflunomide [Arava] 20 mg PO DAILY #30 11/27/16 Mometasone Furoate [Nasonex] 2 spr NS DAILY #1 11/27/16 Codeine/APAP [Tylenol #3*] 1 tab PO TIDP PRN 03/06/17 Diltiazem HCl [Cartia Xt] 240 mg PO DAILY 03/06/17 Arformoterol Tartrate [Brovana] 2 ml IH BID PRN 06/17/17 Duloxetine [Cymbalta *] 60 mg PO DAILY 06/17/17 Ipratropium Mdi [Atrovent Hf Inhaler*] 1 puff IH BID 06/17/17 Budesonide [Pulmicort*] 2 puff IH BID PRN 08/12/17 Hydrocodone Bit/Acetaminophen [Hydrocodon-Acetaminophn 10-325] 1 each PO TID PRN 08/12/17 Omeprazole [Prilosec] 40 mg PO BID 08/12/17 Prednisone [Deltasone*] 10 mg PO DAILY 08/12/17 Rivaroxaban [Xarelto*] 20 mg PO 1700 08/12/17 Hydrocodone 10/APAP 325 [[place] 10/325*] 1 tab PO TID PRN tab 08/13/17 Nasonex 2 spray NS DAILY 08/13/17 Spironolactone [Aldactone*] 25 mg PO DAILY #30 tab 08/13/17 New Medications: Spironolactone [Aldactone*] 25 mg PO DAILY #30 tab Patient Discharge Instructions: Patient to discontinue hydrochlorothiazide and to discuss with the primary care doctor regarding spironolactone description has been faxed to the pharmacy. Patient also stopped taking potassium Diet: Regular Activity: Ad laverne Followup: Jackson Cooper MD [ACTIVE - CAN ADMIT] -
== END 2017-08-13 13:46 | disposition home or self-care (01) ==
LOC: ER 03:41 → ERHOLD 05:26 → 4TH 07:44
PROVIDERS: ADMIT Internal Medicine; ATTEND Internal Medicine
DX: I48.91 Unspecified atrial fibrillation (principal); R94.6 Abnormal results of thyroid function studies; E66.9 Obesity, unspecified; Z68.41 Body mass index [BMI] 40.0-44.9, adult; J44.9 Chronic obstructive pulmonary disease, unspecified; Z88.0 Allergy status to penicillin; Z79.82 Long term (current) use of aspirin; Z96.653 Presence of artificial knee joint, bilateral
CPT/HCPCS: 36415 ×2; 71045; 80048 ×2; 80076; 81003; 82550; 82553; 83735 ×3; 83880; 84132; 84439; 84443; 84481; 84484; 85025; 85610; 85730; 93005 ×2; 94640; 94760 ×3; 96365; 96372; 96375; 99285; G0378 ×2; J1160; J1650; J2405; J3475 ×3; J7605 ×2; J7512

== ENCOUNTER 2017-10-31 17:05 | Observation (INO) | payer OTHER ==
--- OUTSIDE RECORDS SUMMARY | 2017-10-31 17:08 | XMS REPORT | Clinical Summary ---
:1950 Author Organization [facility] Address [address] [place] [address] Care Team Providers Name Role Phone Caleb [...] tablet mouth 2 (two) times a day. magnesium chloride 64 Take [...] (two) times a inhaler day. sulfaSALAzine Take 1,000 mg by Active (AZULFIDINE) 500 mg mouth 2 (two) tablet times a day. 2am and 2pm acetaminophen-codeine Take 1 tablet by Active (TYLENOL WITH CODEINE mouth 3 (three) #3) 300-30 mg per times a day as tablet needed for moderate pain. diltiazem CD (CardIZEM Take 240 mg by Active CD) 240 MG 24 hr mouth daily. capsule etanercept (ENBREL) 25 Inject 25 mg Active mg (1 mL) injection under the skin. Patient take 25mg inj 2x/wk or 50mg inj once a wk propafenone (RYTHMOL) Take 225 mg by Active 225 MG tablet mouth every 8 (eight) hours. spironolactone Take 25 mg by Active (ALDACTONE) 25 MG mouth daily. tablet rivaroxaban (XARELTO) Take 20 mg by Active 20 mg tablet mouth daily. potassium chloride Take 20 mEq by Discontinued (K-DUR,KLOR-CON) 10 MEQ mouth 2 (two) 018 CR tablet times a day. aspirin (ECOTRIN) 81 MG Take 81 mg by Discontinued enteric coated tablet mouth daily. 018 umeclidinium-vilanterol Inhale nightly. Discontinued (ANORO ELLIPTA) 62.5-25 018 mcg/actuation blister with device pirfenidone 267 mg Take by mouth 3 Discontinued capsule (three) times a 018 day with meals. hydroCHLOROthiazide Take 25 mg by Discontinued (HYDRODIURIL) 25 MG mouth daily. 018 tablet propafenone SR (RYTHMOL Take 225 mg by Discontinued SR) 225 MG 12 hr mouth 3 (three) 018 capsule times a day. rivaroxaban (XARELTO) Take 1 tablet 30 tablet 0 06/23/19 20 mg tablet (20 mg total) by 18 018 mouth daily for 30 days. sucralfate (CARAFATE) 1 Take 1 tablet (1 90 tablet 0 09/16/19 gram tablet g total) by 18 018 mouth 3 (three) times a day before meals for 30 days. colchicine 0.6 mg Take 0.5 tablets 30 tablet 0 09/16/19 tablet (0.3 mg total) 18 018 by mouth 2 (two) times a day for 30 days. Active Problems Problem Noted Date PAF (paroxysmal atrial fibrillation) 09/14/2017 Encounters Date Type Specialty Care Team Description 09/14/2017 - Hospital Encounter Cardiology Kristopher Moreno MD PAF (paroxysmal 09/15/2017 atrial fibrillation) 09/14/2017 Anesthesia Event Procedural Cardiology Cristina Juarez MD 09/14/2017 Procedure Pass Procedural Cardiology 09/14/2017 Surgery Procedural Cardiology Kristopher Moreno MD Ep complete ep study w ablation pulmonary vein [79305 (CPT)] 06/21/2017 Patient Outreach Quality Rachel Gunter 06/21/2017 Procedure Pass Procedural Cardiology 06/21/2017 Surgery Procedural Cardiology Kristopher Moreno MD Ep loop recorder insertion [98588 (CPT)] 06/21/2017 Procedure Pass Procedural Cardiology 06/21/2017 Surgery Procedural Cardiology Kristopher Moreno MD Ep complete ep study w ablation svt [12161 (CPT)] 06/19/2017 Anesthesia Event Procedural Cardiology Keke Perla 06/18/2017 - Hospital Encounter Cardiovascular Nicola, Atrial fibrillation 06/21/2017 MD Yanick with RVR (Primary Dx) after 10/30/2016 Family History Medical History Relation Name Comments [...] Vital Sign Reading Time Taken Blood Pressure 135/98 09/15/2017 4:18 PM CDT Pulse 86 09/15/2017 4:18 PM CDT Temperature 36.8 C (98.3 F) 09/15/2017 11:36 AM CDT Respiratory Rate 18 09/15/2017 1:31 PM CDT Oxygen Saturation 96% 09/15/2017 11:36 AM CDT Inhaled Oxygen Concentration - - Weight 109 kg (239 lb 4 oz) 09/14/2017 7:03 AM CDT Height 165.1 cm (5' 5") 09/14/2017 7:03 AM CDT Body Mass Index 39.81 09/14/2017 7:03 AM CDT Plan of Treatment Health Maintenance Due Date Last Done Comments BREAST CANCER SCREENING 08/17/2001 COLON CANCER SCREENING 08/17/2001 SHINGRIX VACCINE (#1) 08/17/2001 ZOSTER VACCINE 2011 PNEUMOCOCCAL POLYSACCHARIDE VACCINE AGE 65 AND OVER 08/17/2016 PNEUMOCOCCAL-13 08/17/2016 INFLUENZA VACCINE 10/25/2017 Implants Implanted Type Area Sprinkler Installer Device Expiration Model / Identifier Date Serial / Lot Monitor Cardiac Implant Confirm Rx - [id number] Cardiac N/A: N/A [employer] [id number] / Implanted: 06/21/2017 (Quantity not on file) [employer] / Related Products Procedures Procedure Name Priority Date/Time Associated Comments Diagnosis HC COMPLETE BLD COUNT Routine 09/15/2017 5:23 Results for this W/AUTO DIFF AM CDT procedure are in the results section. ESTIMATED GFR Routine 09/15/2017 4:00 Results for this AM CDT procedure are in the results section. BASIC METABOLIC PANEL Routine 09/15/2017 4:00 Results for this AM CDT procedure are in the results section. EP COMPLETE EP STUDY Routine 09/14/2017 1:17 PAF (paroxysmal Results for this W ABLATION PULMONARY PM CDT atrial procedure are in VEIN fibrillation) the results section. GLUCOSE LEVEL, STAT 09/14/2017 12:50 Results for this SYRINGE PM CDT procedure are in the results section. IONIZED CALCIUM, STAT 09/14/2017 12:50 Results for this ARTERIAL PM CDT procedure are in the results section. HEMOGLOBIN, SYRINGE STAT 09/14/2017 12:50 Results for this PM CDT procedure are in the results section. POTASSIUM, SYRINGE STAT 09/14/2017 12:50 Results for this PM CDT procedure are in the results section. SODIUM LEVEL, SYRINGE STAT 09/14/2017 12:50 Results for this PM CDT procedure are in the results section. ARTERIAL BLOOD GAS, STAT 09/14/2017 12:50 Results for this CORRECTED PM CDT procedure are in the results section. ACTIVATED CLOTTING Routine 09/14/2017 12:44 Results for this TIME PM CDT procedure are in the results section. ACTIVATED CLOTTING Routine 09/14/2017 12:11 Results for this TIME PM CDT procedure are in the results section. ACTIVATED CLOTTING Routine 09/14/2017 11:33 Results for this TIME AM CDT procedure are in the results section. ACTIVATED CLOTTING Routine 09/14/2017 11:00 Results for this TIME AM CDT procedure are in the results section. ACTIVATED CLOTTING Routine 09/14/2017 10:13 Results for this TIME AM CDT procedure are in the results section. ACTIVATED CLOTTING Routine 09/14/2017 10:04 Results for this TIME AM CDT procedure are in the results section. ACTIVATED CLOTTING Routine 09/14/2017 9:57 Results for this TIME AM CDT procedure are in the results section. WV AN ELECTIVE Routine 09/14/2017 9:28 ENDOTRACHEAL AIRWAY AM CDT Procedure Note - Vanna Garcia CRNA - 09/14/2017 9:28 AM CDT Airway Date/Time: 09/14/2017 8:59 AM Performed by: VANNA GARCIA Authorized by: CRISTINA JUAREZ Location: OR Urgency: Elective Difficult Airway: No Anesthesiologist: CRISTINA JUAREZ Resident/RESPIRATORY CARE PROGRAM DIRECTOR/AA: CRISTINA JUAREZ Performed by: resident/KATE/AA Preoxygenated with 100% O2: Yes C-spine Precautions Maintained Throughout: Yes Mask Ventilation: Easy mask (+OPA size 10, one-handed) Final Airway Type: Endotracheal airway Final Endotracheal Airway: ETT Cuffed: Yes Technique Used: Video laryngoscopy (GlideScope, used electively.) Devices/Methods Used in Placement: Intubating stylet Insertion Site: Oral Blade Type: Heriberto Laryngoscope Blade/Videolaryngoscope Blade Size: 3 ETT Size (mm): 7.0 Measured from: Lips ETT to Lips (cm): 21 Placement Verified by: CO2 detection, direct visualization and equal breath sounds Laryngoscopic view: Grade I - full view of glottis Number of Attempts at Approach: 1 Pt ramped into sniffing position for alignment of airway axes. Atraumatic laryngoscopy and intubation. Eyelids taped fully closed after loss of lash reflex. DL x 1, visualized ETT passing through vocal cords. Placement confirmed: bilateral, equal breath sounds, + etCO2. Head and neck maintained in neutral alignment with spine throughout. Lips/dentition/oral structures as preinduction. All facial structures and occiput protected from pressure/compression. All bony prominences free of pressure. All pressure points padded. B arms wrapped securely in foam padding, <90 degree abduction from midline. ECG PRE/POST OP Routine 09/14/2017 6:49 AM CDT EP COMPLETE EP STUDY W Routine 06/21/2017 9:15 AM CDT Results for this ABLATION SVT procedure are in the results section. ECG PRE/POST OP Routine 06/21/2017 7:01 AM CDT TYPE AND SCREEN STAT 06/20/2017 5:50 PM CDT HC COMPLETE BLD COUNT W/AUTO Routine 06/20/2017 4:44 AM CDT Results for this DIFF procedure are in the results section. ESTIMATED GFR Routine 06/20/2017 4:00 AM CDT BASIC METABOLIC PANEL Routine 06/20/2017 4:00 AM CDT HC COMPLETE BLD COUNT W/AUTO Routine 06/19/2017 5:30 AM CDT Results for this DIFF procedure are in the results section. ESTIMATED GFR Routine 06/19/2017 4:00 AM CDT MAGNESIUM LEVEL Routine 06/19/2017 4:00 AM CDT BASIC METABOLIC PANEL Routine 06/19/2017 4:00 AM CDT ECHOCARDIOGRAM 2D COMPLETE W Routine 06/18/2017 10:22 PM CDT Results for this MMODE SPECTRAL COLOR DOPPLER procedure are in the (98766) results section. AST (SGOT) Routine 06/18/2017 7:15 AM CDT POTASSIUM LEVEL Routine 06/18/2017 7:15 AM CDT ALT (SGPT) Routine 06/18/2017 7:15 AM CDT HC COMPLETE BLD COUNT W/AUTO Routine 06/18/2017 4:04 AM CDT Results for this DIFF procedure are in the results section. ESTIMATED GFR Routine 06/18/2017 4:00 AM CDT T4, FREE Routine 06/18/2017 4:00 AM CDT THYROID STIMULATING HORMONE Routine 06/18/2017 4:00 AM CDT MAGNESIUM LEVEL Routine 06/18/2017 4:00 AM CDT COMPREHENSIVE METABOLIC Routine 06/18/2017 4:00 AM CDT Results for this PANEL procedure are in the results section. after 10/30/2016 Results CBC with platelet and differential (09/15/2017 5:23 AM)Only the most recent of4 resultswithin the time period is included. WBC 6.03 4.50 - 11.00 k/uL [facility] DEPARTMENT OF PATHOLOGY AND GENOMIC MEDICINE RBC 3.57 (L) 4.20 - 5.50 m/uL [facility] DEPARTMENT OF PATHOLOGY AND GENOMIC MEDICINE HGB 9.8 (L) 12.0 - 16.0 g/dL [facility] DEPARTMENT OF PATHOLOGY AND GENOMIC MEDICINE HCT 32.8 (L) 37.0 - 47.0 % [facility] DEPARTMENT OF PATHOLOGY AND GENOMIC MEDICINE MCV 91.9 82.0 - 100.0 fL [facility] DEPARTMENT OF PATHOLOGY AND GENOMIC MEDICINE MCH 27.5 27.0 - 34.0 pg [facility] DEPARTMENT OF PATHOLOGY AND GENOMIC MEDICINE MCHC 29.9 (L) 31.0 - 37.0 g/dL [facility] DEPARTMENT OF PATHOLOGY AND GENOMIC MEDICINE RDW - SD 58.4 (H) 37.0 - 55.0 fL [facility] DEPARTMENT OF PATHOLOGY AND GENOMIC MEDICINE MPV 10.0 8.8 - 13.2 fL [facility] DEPARTMENT OF PATHOLOGY AND GENOMIC MEDICINE Platelet count 169 150 - 400 k/uL [facility] DEPARTMENT OF PATHOLOGY AND GENOMIC MEDICINE Nucleated RBC 0.00 /100 WBC [facility] DEPARTMENT OF PATHOLOGY AND GENOMIC MEDICINE Neutrophils 67.1 39.0 - 69.0 % [facility] DEPARTMENT OF PATHOLOGY AND GENOMIC MEDICINE Lymphocytes 21.1 (L) 25.0 - 45.0 % [facility] DEPARTMENT OF PATHOLOGY AND GENOMIC MEDICINE Monocytes 8.0 0.0 - 10.0 % [facility] DEPARTMENT OF PATHOLOGY AND GENOMIC MEDICINE Eosinophils 2.3 0.0 - 5.0 % [facility] DEPARTMENT OF PATHOLOGY AND GENOMIC MEDICINE Basophils 0.7 0.0 - 1.0 % [facility] DEPARTMENT OF PATHOLOGY AND GENOMIC MEDICINE Immature granulocytes 0.8Comment: 0.0 - 1.0 % [facility] DEPARTMENT OF "Immature PATHOLOGY AND GENOMIC granulocytes" MEDICINE (promyelocytes, myelocytes, metamyelocytes) Specimen Blood Performing Organization Address City/[facility]/[employer] Phone Number [facility] DEPARTMENT PATHOLOGY AND [address] [place] [address] [email or web address] MEDICINE Estimated GFR (09/15/2017 4:00 AM)Only the most recent of4 resultswithin the time period is included. GFR Non Af Amer 63 mL/min/1.73 m2 [facility] DEPARTMENT OF PATHOLOGY AND GENOMIC MEDICINE GFR Af Amer 76 mL/min/1.73 m2 [facility] DEPARTMENT OF Comment: PATHOLOGY AND GENOMIC Chronic kidney disease: <60 mL/min/1.73m2 MEDICINE Kidney failure: <15 mL/min/1.73m2 The estimated GFR is calculated from the IDMS-traceable Modification of Diet in Renal Disease Equation. The accuracy of the calculation is poor when the creatinine is normal. Calculated values >90 mL/min/1.73m2 are not reported. This equation has not been validated in children (<18 years), women, the elderly (>70 years), or ethnic groups other than Caucasians and Americans. Specimen Plasma specimen Performing Organization Address City/[facility]/Zipcode Phone Number [facility] PATHOLOGY AND [address] [place] [address] [facility] Basic metabolic panel (09/15/2017 4:00 AM)Only the most recent of3 resultswithin the time period is included. Sodium 135 135 - 148 mEq/L [facility] DEPARTMENT OF PATHOLOGY AND GENOMIC MEDICINE Potassium 3.8 3.5 - 5.0 mEq/L [facility] DEPARTMENT OF PATHOLOGY AND GENOMIC MEDICINE Chloride 97 (L) 98 - 112 mEq/L [facility] DEPARTMENT OF PATHOLOGY AND GENOMIC MEDICINE CO2 25 24 - 31 mEq/L [facility] DEPARTMENT OF PATHOLOGY AND GENOMIC MEDICINE Anion gap 13@ANIO 7 - 15 mEq/L [facility] DEPARTMENT OF PATHOLOGY AND GENOMIC MEDICINE BUN 15 8 - 23 mg/dL [facility] DEPARTMENT OF PATHOLOGY AND GENOMIC MEDICINE Creatinine 0.9 0.5 - 0.9 mg/dL [facility] DEPARTMENT OF PATHOLOGY AND GENOMIC MEDICINE Glucose 110 (H) 65 - 99 mg/dL [facility] DEPARTMENT OF PATHOLOGY AND GENOMIC MEDICINE Calcium 8.6 (L) 8.8 - 10.2 mg/dL [facility] DEPARTMENT OF PATHOLOGY AND GENOMIC MEDICINE Specimen Plasma specimen Performing Organization Address City/State/Zipcode Phone Number [facility] DEPARTMENT OF PATHOLOGY AND [address] [place] [address] GENOMIC MEDICINE Cv electrophysiology procedure (09/14/2017 1:17 PM) Impressions Performed At -Successful pulmonary veins isolation x4 [facility] -Successful re-ablation of CTI -No arrhythmia induced with high dose isoprotenerol and burst pacing -Patient was noted to be in junctional rhtyhm throughout the procedure RECOMMENDATIONS: 1. Monitor on telemetry overnight 2. Bedrest for 4 hours after sheaths removal 3. Restart Eliquis tonight 4. Restart propafenone home dose 5- Lasix 20 mg IV when patient in recovery Narrative Performed At DATE OF OPERATION: 09/14/2017 CUPID CARPENTER ROUGH: Kristopher Moreno MD PREOPERATIVE DIAGNOSES: -Paroxysmal atrial fibrillation -Typical flutter s/p CTI ablation (May 2017) -Severe COPD on 3 inhalers and home O2 -Hypertension -Morbid obesity -Insterstitial lung disease POSTOPERATIVE DIAGNOSES: -Persistent atrial fibrillation -Chronic tracheostomy -Hypertension -Morbid obesity PROCEDURES PERFORMED: -Ultrasound guided vascular access -Arterial line placement -Afib ablation with PVI -CTI ablation -3D mapping -Stimulation after drug infusion -Intra cardiac echocardiography (ICE) COMPLICATIONS: None ESTIMATED BLOOD LOSS: <30cc HISTORY OF PRESENT ILLNESS: In brief, this is a 67 years old female with past medical history as above, with symptomatic paroxysmal atrial fibrillation refractory to anti-arrhythmics (propafenone) with RVR requiring multiple ER visits who presents today for atrial fibrillation ablation. PROCEDURE IN DETAIL: Consent was obtained from the patient after a full explanation of the risks and benefits of the procedure. The patient was brought to the electrophysiology lab in the fasting state. The patient was prepared and draped in a sterile fashion. General anesthesia with intratracheal ventilation administered by the anesthesia service was used for the procedure. Esophageal temperature monitoring was performed throughout the case using CIRCA catheter. Patient presented to the EP lab in atrial fibrillation. Sheaths were placed using modified Seldinger technique. Three venous sheaths (8Fr, 8Fr and long 9Fr sheath) were placed in the right femoral vein using ultrasound guidance without complication. One long &Fr and one 4Fr arterial sheath were placed in the left femoral vein and artery respectively using ultrasound guidance without complication. Heparin bolus and gtt were given after obtaining vascular access. A intracardiac echocardiography catheter (ICE) was inserted via the 9Fr sheath and advanced into the right atrium and the right ventricle. At baseline, there was no pericardial effusion and normal EF. Using SOUND, the CTI, CS os, fossa, Left common PV, RPVs were marked. The left atrium was noted to be severly enlarged and measured at 5.9cm. The ICE catheter was later used to guide transseptal puncture and monitor for procedure complications. Next, the RFV 8Fr sheath was upgraded to a large curl Agilis sheath, through which a PulpWorksuch SF catheter, DF curve was advanced to the RA, and a Fast Anatomic Map (FAM) was done for the IVC, RA septum, fossa and SVC. A decapolar diagnostic catheter was then advanced into the coronary sinus. After cardioverting patient to NSR, we proceeded first to check the prior CTI line. After marking the His cloud on Carto 3D map, the CTI line was found to be connected on the TV end of it. Ablation there immediately blocked again and jump seen. Few consolidations lesions were added until bidirectional block confirmed. Next, we turned out attention to left sided access. After titrating heparin drip to achieve an ACT > 350 sec, transseptal puncture was performed with [place] long needle (requiring RF) using ICE guidance. Left (26 mmHg) atrial pressure was measured to assess intracardiac filling pressures.There were no complications.Following transseptal puncture, Agilis sheath was advanced into the LA, and the ablator was then exchanged to a DF Pentarray catheter. A detailed 3D electroanatomical and voltage map was created while in sinus rhythm in the left atrium using CARTO mapping system. Mostly normal voltage was seen throughout. After exchanging the Pentarray to the ablation catheter, we proceeded to pulmonary veins isolation. The left common pulmonary vein was circumferentially isolated as a common os using RF ablation.Left vein was isolated from the first pass. The right pulmonary veins were circumferentially isolated as a common os using RF ablation. Additional lesions were needed on posterior theo to achieve isolation. Prior to ablation of right sided veins, pacing was performed and right phrenic nerve course was avoided (PN not captured from RPVs). 30-40 W for 30 sec and impedance drop of 10-15 ohms was targeted in the anterior sites. Posterior sites used 20 W for 8-15 sec.Exit and entrance block was confirmed at all 4 veins. Of note, the posterior aspect of the RIPV was overlying immediately over the esophagus as seen on ICE and fluoroscopy, with quire temp rise seen even 15 W within few seconds only. An Esosure device was used to deviate esophagus under fluoroscopy (Esophagus was large encompassing the whole left atrium) so additional adequate lesions were performed. All lesions on posterior wall were 15-20W only for 9-14sec.The left and right pulmonary veins were confirmed to remain isolated. Isuprel infusion up to 20mcg/min did not demonstrate reconnection nor a non-PV trigger.CS burst pacing from 250ms to 200msec during isuprel washout, no afib or organized AT/flutter was induced. Catheters were withdrawn into the RA and a CTI line was confirmed with bidirectional block. Transblock conduction time was 151-156 msec. At this time case was ended. HV interval was measured at 59msec and KA=320hl. Post-procedure ICE showed no pericardial effusion.At this time, GA was stopped and patient was extubated; No immediate complications. Protamine was given at the end of the procedure.Sheaths were pulled in the lab and patient was transferred to the PACU in a stable condition. Performing Organization Address [facility]/[employer] Phone Number [facility] [address] [place] [address] Sodium level, syringe (09/14/2017 12:50 PM) Sodium, syringe 136 135 - 148 mEq/L [facility] DEPARTMENT OF PATHOLOGY AND GENOMIC MEDICINE Specimen Blood Performing Organization Address [facility]/[employer] Phone Number [facility] DEPARTMENT OF PATHOLOGY AND [address] [place] [id number] [facility] Potassium, syringe (09/14/2017 12:50 PM) Potassium, syringe 4.1 3.5 - 5.0 mEq/L [facility] DEPARTMENT OF PATHOLOGY AND GENOMIC MEDICINE Specimen Blood Performing Organization Address [facility] Phone Number [facility] DEPARTMENT OF PATHOLOGY AND [address] [place] [phone] [facility] Ionized calcium, arterial (09/14/2017 12:50 PM) Ionized calcium, arterial 1.04 (L) 1.11 - 1.32 mmol/L [facility] DEPARTMENT OF PATHOLOGY AND GENOMIC MEDICINE Specimen Blood Performing Organization Address [facility]/[employer] Phone Number [facility] DEPARTMENT OF PATHOLOGY AND [address] [place] [address] Hemoglobin, syringe (09/14/2017 12:50 PM) Hemoglobin, syringe 10.5 (L) 12.0 - 16.0 g/dL [facility] DEPARTMENT OF PATHOLOGY AND GENOMIC MEDICINE Specimen Blood Performing Organization Address [facility]/[employer] Phone Number [facility] DEPARTMENT OF PATHOLOGY AND [address] [place] [address] Glucose level, syringe (09/14/2017 12:50 PM) Glucose, syringe 167 (H) 65 - 99 mg/dL [facility] DEPARTMENT OF PATHOLOGY AND GENOMIC MEDICINE Specimen Blood Performing Organization Address [facility] Phone Number [facility] DEPARTMENT OF PATHOLOGY AND [address] [place] [address] Arterial blood gas, corrected (09/14/2017 12:50 PM) pH, arterial 7.34 (L) 7.35 - 7.45 [facility] DEPARTMENT OF PATHOLOGY AND GENOMIC MEDICINE pCO2, arterial 44 35 - 45 mmHg [facility] DEPARTMENT OF PATHOLOGY AND GENOMIC MEDICINE pO2, arterial 356 (H) 80 - 90 mmHg [facility] DEPARTMENT OF PATHOLOGY AND GENOMIC MEDICINE Temperature, Celsius 36.5 Degrees C [facility] DEPARTMENT OF PATHOLOGY AND GENOMIC MEDICINE O2 saturation, arterial 99 95 - 100 % [facility] DEPARTMENT OF PATHOLOGY AND GENOMIC MEDICINE pH, arterial corrected 7.35 [facility] DEPARTMENT OF PATHOLOGY AND GENOMIC MEDICINE pCO2, arterial corrected 43 mmHg [facility] DEPARTMENT OF PATHOLOGY AND GENOMIC MEDICINE pO2, arterial corrected 354 mmHg [facility] DEPARTMENT OF PATHOLOGY AND GENOMIC MEDICINE Base excess, arterial -2 -2 - 2 mEq/L [facility] DEPARTMENT OF PATHOLOGY AND GENOMIC MEDICINE Specimen Blood Performing Organization Address [facility] Phone Number [facility] DEPARTMENT OF PATHOLOGY AND [address] [place] [address] Activated clotting time (09/14/2017 12:44 PM)Only the most recent of7 resultswithin the time period is included. Activated clotting time 129 96 - 152 sec [facility] DEPARTMENT OF Comment: PATHOLOGY AND GENOMIC Meter ID: [id number] MEDICINE Manager Battery ID: Larry Evans Performing Organization Address City/[facility]/[employer] Phone Number [facility] DEPARTMENT OF PATHOLOGY AND [address] [place] [address] GENOMIC MEDICINE ECG Pre/Post Op (09/14/2017 6:49 AM)Only the most recent of2 resultswithin the time period is included. Ventricular rate 124 [facility] Atrial rate 337 [facility] QRSD interval 90 [facility] QT interval 344 [facility] QTC interval 494 [facility] QRS axis 1 28 [facility] T wave axis 122 [facility] EKG impression Atrial flutter with variable AV block-Nonspecific ST and T wave abnormality-Abnormal ECG-In automated comparison with ECG of 21-JUN-2017 07 :01,-Atrial flutter has replaced Sinus rhythm-Vent. rate has increased BY61 BPM-T wave inversion no longer [facility] MUSE evident in Anterolateral leads- Performing Organization Address City/State/Zipcode Phone Number [facility] MUSE [address] [place] [address] Cv electrophysiology procedure (06/21/2017 9:15 AM) Impressions Performed At -Successful CTI ablation line [facility] -Bidirectional block confirmed after more than 20 minutes of wait time and adenosine injection -Successful implantable loop recorder implant RECOMMENDATION: -Bedrest for 4 hours. -Likely discharge home later today -Start Xarelto this afternoon 4 hours after obtaining hemostasis. -Followup in 10 days for wound check Narrative Performed At DATE OF OPERATION: June 21, 2017 [facility] CARPENTER ROUGH: Kristopher Moreno MD PREOPERATIVE DIAGNOSES: -Typical atrial [...] long 7-Fr, long 9-Fr, and a short 8-English sheath) using modified Seldinger technique.An ICE catheter sound was advanced to the RA RV junction.A baseline eye study showed normal ejection fraction and no pericardial effusion.The CTI line, His position,CS os were all marked on the Sound map.Following this the 8-English sheath was upgraded to a medium curl [...] indicating block across the line.Trans block conduction [id number] and bidirectional block was confirmed.Power of 30-40 [...] with medical adhesive (Prineo) ILR: Confirm Rx [id number]; PK=[id number]. Performing Organization Address [facility]/[place] Phone Number [facility] [address] [place] [address] Type and screen (06/20/2017 5:50 PM) ABO grouping O [facility] DEPARTMENT OF PATHOLOGY AND GENOMIC MEDICINE Rh type POS [facility] DEPARTMENT OF PATHOLOGY AND GENOMIC MEDICINE Antibody screen (gel) NEG [facility] DEPARTMENT OF PATHOLOGY AND GENOMIC MEDICINE Specimen Blood Performing Organization Address [facility] Phone Number [facility] DEPARTMENT OF PATHOLOGY AND [address] [place] [address] MEDICINE Magnesium level (06/19/2017 4:00 AM)Only the most recent of2 resultswithin the time period is included. Magnesium 1.7 1.6 - 2.4 mg/dL [facility] DEPARTMENT OF PATHOLOGY AND GENOMIC MEDICINE Specimen Plasma specimen Performing Organization Address [facility] Phone Number [facility] DEPARTMENT OF PATHOLOGY AND [address] [place] [address] MEDICINE Echocardiogram complete w contrast and 3D if needed (06/18/2017 10:22 PM) Narrative Performed At [facility] Echocardiography Report [id number] [facility] [address], [place] [address] Pat.Name:CHRISTINA SANTACRUZ AMY Alvarez.ID:[id number] .Date: 06/18/2017 Refer.:YANICK STANLEY MD Exam Time: 9:42:00 PMStudy Type:Routine Echo Height:67inWeight: 234lb BSA: 2.16 m2 DOBAge:1950,66Y Sex: FEMALEBP:149/71 HR:68 bpmSonogrphr: Ishaan King RDCS Pat. Stat.:Inpatient Room:[facility] Study Status:Final Echo Event ID:[id number] Order ID:[id number] Reason for Study:Arrhythmias - Sustained or nonsustained [...] detected by Doppler. MEASUREMENTS: 2D Parasternal Long [place] LVOT 2.1 cmLA Ds3.9 cm LVIDd4.5 cmIndex2.1 cm/m Ao An2.4 cm LVIDs3 cmAo Rtd 3.1 cm Index1.4 cm/m LV%fs 33.3 % LV Fofd855.9 g(87-129) IVSd 1 cmRWT0.4 LVPWd0.9 cm LA Sng Plane LA Area 11.1 cm2(8.8-23.4) LA Vol22.8 ml Index10.5 ml/m LA LngAx 4.8 cm DOPPLER LVOT Stroke Vol LVOT 2.1 cmLVOT SV 70.2 ml LVOT TVI20.3 cmLVOT CO4.8 l/min LVOT Tm301 jegdDT52 bpm Signed 06/19/2017 09:18 AM Sylvain Fuentes M.D. Procedure Note Interface, Radiology Results In - 06/19/2017 9:18 AM CDT Echocardiography Report [address] [place] [address] Pat.Name: CHRISTINA SANTACRUZ AMY Pat.ID: [id number] .Date: 06/18/2017 Refer.MD: YANICK STANLEY MD Exam Time: 9:42:00 PM Study Type:Routine Echo Height: 67in Weight: 234lb BSA: 2.16 m2 Age: 5 1950,66Y Sex: FEMALE BP: 149/71 HR: 68 bpm Sonogrphr: Ishaan King RDCS Pat. Stat.:Inpatient Room: [facility] Study Status:Final Echo Event ID:[id number] Order ID: [id number] Reason for Study:Arrhythmias - Sustained or nonsustained [...] detected by Doppler. MEASUREMENTS: 2D Parasternal Long [place] LVOT 2.1 cm LA Ds 3.9 cm [...] Signed 06/19/2017 09:18 AM Sylvain Fuentes M.D. Performing Organization Address City/State/Zipcode Phone Number [facility] [address] [place] [address] ALT (SGPT) (06/18/2017 7:15 AM) ALT 16 5 - 50 U/L [facility] DEPARTMENT OF PATHOLOGY AND GENOMIC MEDICINE Specimen Plasma specimen Performing Organization Address [facility] Phone Number [facility] DEPARTMENT OF PATHOLOGY AND [address] [place] [address] AST (SGOT) (06/18/2017 7:15 AM) AST 28 10 - 35 U/L [facility] DEPARTMENT OF PATHOLOGY AND GENOMIC MEDICINE Specimen Plasma specimen Performing Organization Address [facility] Phone Number [facility] DEPARTMENT OF PATHOLOGY AND [address] [place] [address] Potassium level (06/18/2017 7:15 AM) Potassium 3.3 (L) 3.5 - 5.0 mEq/L [facility] DEPARTMENT OF PATHOLOGY AND GENOMIC MEDICINE Specimen Plasma specimen Performing Organization Address [facility] Phone Number [facility] DEPARTMENT OF PATHOLOGY AND [address] [place] [address] Thyroid stimulating hormone (06/18/2017 4:00 AM) TSH 5.44 (H) 0.27 - 4.20 uIU/mL [facility] DEPARTMENT OF PATHOLOGY AND GENOMIC MEDICINE Specimen Plasma specimen Performing Organization Address [facility] Phone Number [facility] DEPARTMENT OF PATHOLOGY AND [address] [place] [address] T4, free (06/18/2017 4:00 AM) T4, free 1.1 0.9 - 1.7 ng/dL [facility] DEPARTMENT OF PATHOLOGY AND GENOMIC MEDICINE Specimen Plasma specimen Performing Organization Address [facility] Phone Number [facility] DEPARTMENT OF PATHOLOGY AND [address] [place] [address] Comprehensive metabolic panel (06/18/2017 4:00 AM) Sodium 137 135 - 148 mEq/L [facility] DEPARTMENT OF PATHOLOGY AND GENOMIC MEDICINE Potassium SEE COMMENT 3.5 - 5.0 mEq/L [facility] DEPARTMENT OF Comment: PATHOLOGY AND GENOMIC Footnote--------- MEDICINE Unable to perform testing, specimen is hemolyzed.Recollect requested for K AST ALT.Lorelei Díaz/DDulceW notified by BB at06/18/201705:27.Credit issued. Chloride 96 (L) 98 - 112 mEq/L [facility] DEPARTMENT OF PATHOLOGY AND GENOMIC MEDICINE CO2 28 24 - 31 mEq/L [facility] DEPARTMENT OF PATHOLOGY AND GENOMIC MEDICINE Anion gap 13 7 - 15 mEq/L [facility] DEPARTMENT OF Comment: PATHOLOGY AND GENOMIC Starting from June , anion gap calculation MEDICINE no longer incorporates potassium. Please note the change. BUN 15 8 - 23 mg/dL [facility] DEPARTMENT OF PATHOLOGY AND GENOMIC MEDICINE Creatinine 0.7 0.5 - 0.9 mg/dL [facility] DEPARTMENT OF PATHOLOGY AND GENOMIC MEDICINE Glucose 89 65 - 99 mg/dL [facility] DEPARTMENT OF PATHOLOGY AND GENOMIC MEDICINE Calcium 9.3 8.8 - 10.2 mg/dL [facility] DEPARTMENT OF PATHOLOGY AND GENOMIC MEDICINE Protein 7.4 6.3 - 8.3 g/dL [facility] DEPARTMENT OF Comment: PATHOLOGY AND GENOMIC [place] 4.6-7.0 g/dL MEDICINE 1 week 4.4-7.6 g/dL 7 months-1year5.1-7.3 g/dL 1-2 years5.6-7.5 g/dL >3 years6.0-8.0 g/dL 18-150 6.3-8.3 g/dL Albumin 2.9 (L) 3.5 - 5.0 g/dL [facility] DEPARTMENT OF PATHOLOGY AND GENOMIC MEDICINE A/G ratio 0.6 (L) 0.7 - 3.8 [facility] DEPARTMENT OF PATHOLOGY AND GENOMIC MEDICINE Alkaline phosphatase 53 35 - 104 U/L [facility] DEPARTMENT OF PATHOLOGY AND GENOMIC MEDICINE AST SEE COMMENTComment: 10 - 35 U/L [facility] DEPARTMENT OF Footnote--------- PATHOLOGY AND GENOMIC MEDICINE ALT SEE COMMENTComment: 5 - 50 U/L [facility] DEPARTMENT OF Footnote--------- PATHOLOGY AND GENOMIC MEDICINE Total bilirubin 0.3 0.0 - 1.2 mg/dL [facility] DEPARTMENT OF PATHOLOGY AND GENOMIC MEDICINE Specimen Plasma specimen Performing Organization Address City/State/Zipcode Phone Number [facility] DEPARTMENT OF PATHOLOGY AND [address] [place] [address] GENOMIC MEDICINE after 10/30/2016 Insurance Payer Benefit Plan / Group Subscriber ID Type Phone Address MEDICARE MEDICARE PART A AND B xxxxxxxxxx Medicare [place], [place] COMMERCIAL MISC MISC COMMERCIAL xxxxxx-xx Commercial Home: [address] [id number] [place] [id number]
--- OUTSIDE RECORDS SUMMARY | 2017-10-31 17:08 | XMS REPORT ---
:1950 [facility] Address [address] [place] [address] Care Team Providers Name Role Phone JENNIFER WALSH Unavailable Unavailable Problems This patient has no known problems. Allergies, Adverse Reactions, Alerts This patient has no known allergies or adverse reactions. Medications This patient has no known medications. Results Test Description Test Time Test Comments Text Results Atomic Results Result Comments BUN AND CREATININE 2017-09-12 15:05:00 Test Item Value Reference Range Comments BLOOD UREA NITROGEN (BEAKER) 20 mg/dL 7-21 (test onvl=671) CREATININE (BEAKER) (test 0.80 mg/dL 0.57-1.25 Specimen moderately mpvi=614) hemolyzed EGFR (BEAKER) (test 72 mL/min/1.73 sq m ESTIMATED GFR IS NOT qzbw=8567) ACCURATE CREATININE CLEARANCE IN PREDICTING GLOMERULAR FILTRATION RATE. ESTIMATED GFR IS NOT APPLICABLE FOR DIALYSIS PATIENTS. [id number] 15:50:00 Test Item Value Reference Range Comments BLOOD UREA NITROGEN (BEAKER) (test xzwv=375) 14 mg/dL 7-21 [id number] 15:50:00 Test Item Value Reference Range Comments CREATININE (BEAKER) (test 0.78 mg/dL 0.57-1.25 pmoc=190) EGFR (BEAKER) (test 74 mL/min/1.73 sq m ESTIMATED GFR IS NOT gcab=2600) ACCURATE CREATININE CLEARANCE IN PREDICTING GLOMERULAR FILTRATION RATE. ESTIMATED GFR IS NOT APPLICABLE FOR DIALYSIS PATIENTS. [id number] 14:55:00 Test Item Value Reference Range Comments BLOOD UREA NITROGEN (BEAKER) (test uvin=113) 11 mg/dL 7-21 [id number] 14:55:00 Test Item Value Reference Range Comments CREATININE (BEAKER) (test 0.65 mg/dL 0.57-1.25 dtvh=197) EGFR (BEAKER) (test 91 mL/min/1.73 sq m ESTIMATED GFR IS NOT bsuz=9023) ACCURATE CREATININE CLEARANCE IN PREDICTING GLOMERULAR FILTRATION RATE. ESTIMATED GFR IS NOT APPLICABLE FOR DIALYSIS PATIENTS. BUN AND [id number] 15:59:00 Test Item Value Reference Range Comments BLOOD UREA NITROGEN 10 mg/dL 7-21 (BEAKER) (test sxil=447) CREATININE (BEAKER) (test 0.65 mg/dL 0.57-1.25 tkgv=055) EGFR (BEAKER) (test 91 mL/min/1.73 sq m ESTIMATED GFR IS NOT fepa=5732) ACCURATE CREATININE CLEARANCE IN PREDICTING GLOMERULAR FILTRATION RATE. ESTIMATED GFR IS NOT APPLICABLE FOR DIALYSIS PATIENTS. [id number] 14:45:00 Test Item Value Reference Range Comments BLOOD UREA NITROGEN (BEAKER) (test ftit=276) 13 mg/dL 7-21 [id number] 14:45:00 Test Item Value Reference Range Comments CREATININE (BEAKER) (test 0.74 mg/dL 0.57-1.25 ayux=925) EGFR (BEAKER) (test 79 mL/min/1.73 sq m ESTIMATED GFR IS NOT silh=4096) ACCURATE CREATININE CLEARANCE IN PREDICTING GLOMERULAR FILTRATION RATE. ESTIMATED GFR IS NOT APPLICABLE FOR DIALYSIS PATIENTS. BUN AND [id number] 14:55:00 Test Item Value Reference Range Comments BLOOD UREA NITROGEN 13 mg/dL 7-21 (BEAKER) (test rhvr=004) CREATININE (BEAKER) (test 0.69 mg/dL 0.57-1.25 mvgc=897) EGFR (BEAKER) (test 85 mL/min/1.73 sq m ESTIMATED GFR IS NOT psdy=1786) ACCURATE CREATININE CLEARANCE IN PREDICTING GLOMERULAR FILTRATION RATE. ESTIMATED GFR IS NOT APPLICABLE FOR DIALYSIS PATIENTS. [id number] 17:24:00 Test Item Value Reference Range Comments BLOOD UREA NITROGEN (BEAKER) (test ojmh=012) 12 mg/dL 7-21 [id number] 17:24:00 Test Item Value Reference Range Comments CREATININE (BEAKER) (test 0.67 mg/dL 0.57-1.25 ohbg=368) EGFR (BEAKER) (test 89 mL/min/1.73 sq m ESTIMATED GFR IS NOT nrcx=2519) ACCURATE CREATININE CLEARANCE IN PREDICTING GLOMERULAR FILTRATION RATE. ESTIMATED GFR IS NOT APPLICABLE FOR DIALYSIS PATIENTS.
--- OUTSIDE RECORDS SUMMARY | 2017-10-31 17:08 | XMS REPORT | Clinical Summary ---
:1950 Author Organization [facility] Address [address] [place] [address] Phone Care Team Providers Name Role Phone [...] 45 g sodium chloride 0.9% IV Once 10/31/2016 10/31/2016 [...] polyneuropathy) (HCC) sodium chloride 0.9% IV Once 04/18/2017 04/18/2017 [...] 45 gIndications: CIDP (chronic inflammatory demyelinating polyneuropathy) ([facility]) sodium chloride 0.9% IV Once 07/11/2017 07/11/2017 Ended (NS) infusionIndications: CIDP (chronic inflammatory demyelinating polyneuropathy) ([facility]) diphenhydrAMINE 25 MG IV Once 07/11/2017 07/11/2017 Ended (BENADRYL) injection 25 mgIndications: CIDP (chronic inflammatory demyelinating polyneuropathy) ([facility]) immune globulin 45 g IV Once 08/10/2017 08/10/2017 Ended (human) and maltose (OCTAGAM) injection 45 gIndications: CIDP (chronic inflammatory demyelinating polyneuropathy) ([facility]) sodium chloride 0.9% IV Once 08/10/2017 08/10/2017 Ended (NS) infusion diphenhydrAMINE 25 MG IV Once 08/10/2017 08/10/2017 Ended (BENADRYL) injection 25 mg immune globulin 45 g IV Once 09/12/2017 09/12/2017 Ended (human) and maltose (OCTAGAM) injection 45 gIndications: CIDP (chronic inflammatory demyelinating polyneuropathy) ([facility]) sodium chloride 0.9% IV Once 09/12/2017 09/12/2017 Ended (NS) infusion diphenhydrAMINE 25 MG IV Once 09/12/2017 09/12/2017 Ended (BENADRYL) injection 25 mg immune globulin 40 g IV Once 10/12/2017 10/12/2017 Ended (human) and maltose (OCTAGAM) injection 40 gIndications: CIDP (chronic inflammatory demyelinating polyneuropathy) ([facility]) sodium chloride 0.9% IV Once 10/12/2017 10/12/2017 Ended (NS) infusion diphenhydrAMINE 25 MG IV Once 10/12/2017 10/12/2017 Ended (BENADRYL) injection 25 mg Active Problems Problem Noted Date COPD (chronic obstructive pulmonary disease) ([facility]) 08/09/2013 Bronchiectasis ([facility]) 08/09/2013 Hypogammaglobulinemia ([facility]) 12/03/2012 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 Encounters Date Type Specialty Care Team Description 10/12/2017 Procedure visit Oncology Rian Olivera, CIDP (chronic inflammatory MD demyelinating polyneuropathy) Jin Morris ([facility]) MD Bekah Andrews Rachel L, RN 09/12/2017 Procedure visit Oncology Rian Olivera, CIDP (chronic inflammatory MD demyelinating polyneuropathy) Jin Morris ([facility]) MD Syl Andrews Dana M, RN 08/10/2017 Procedure visit Oncology Rian Olivera, CIDP (chronic inflammatory MD demyelinating polyneuropathy) Jin Morris ([facility]) MD Kenney Andrews L R, RN 07/11/2017 Procedure visit Oncology Rian Olivera, CIDP (chronic inflammatory MD demyelinating polyneuropathy) Jin Morris ([facility]) (Primary Dx) MD Bakari Andrews Shalonda, RN 06/13/2017 Procedure visit Oncology Rian Olivera, Hypogammaglobulinemia ([facility]) (Primary Dx) Jin Morris MD Alexander, L R, RN 05/16/2017 Procedure visit Oncology Rian Olivera, Hypogammaglobulinemia ([facility]) (Primary Dx) Jin Morris MD Alexander, L R, RN 04/18/2017 Procedure visit Oncology Rian Olivera, CIDP (chronic inflammatory MD demyelinating polyneuropathy) Jin Morris ([facility]) (Primary Dx) MD Bakari Andrews Shalonda, RN 04/14/2017 Procedure visit Oncology Rian Olivera, Canceled (Patient) Jin Coppola MD 03/17/2017 Procedure visit Oncology Rian Olivera, CIDP (chronic inflammatory MD demyelinating polyneuropathy) Jin Morris ([facility]) (Primary Dx) MD Bekah Andrews Rachel L, RN 02/15/2017 Procedure visit Oncology Rian Olivera, Hypogammaglobulinemia (HCC) (Primary Dx) Jin Morris MD Raibon, Danielle L, RN 01/11/2017 Procedure visit Oncology Rian Olivera, Pulmonary emphysema, MD unspecified emphysema type Jin Morris ([facility]) (Primary Dx) MD Kenney Andrews L R, RN 12/14/2016 Procedure visit Oncology Rian Olivera, CIDP (chronic inflammatory MD demyelinating polyneuropathy) Jin Morris ([facility]) MD Kenney Andrews L R, RN 10/31/2016 Procedure visit Oncology Rian Olivera, CIDP (chronic inflammatory MD demyelinating polyneuropathy) Jin Morris ([facility]) (Primary Dx) MD Mara Andrews Danielle L, RN after 10/30/2016 Family History Medical History Relation [...] Vital Sign Reading Time Taken Blood Pressure 147/69 10/12/2017 11:23 AM CDT Pulse 74 10/12/2017 11:23 AM CDT Temperature 36.6 C (97.8 F) 10/12/2017 11:23 AM CDT Respiratory Rate 20 09/12/2017 2:34 PM CDT Oxygen Saturation 95% 10/12/2017 11:23 AM CDT Inhaled Oxygen Concentration - - Weight 108.4 kg (238 lb 14.4 oz) 09/12/2017 10:50 AM CDT Height 172.7 cm (5' 8") 02/15/2017 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 Component Value Ref Range BUN 20 7 - 21 mg/dL Creatinine 0.80Comment: Specimen moderately hemolyzed 0.57 - 1.25 mg/dL EGFR 72Comment: ESTIMATED GFR IS NOT ACCURATE mL/min/1.73 sq m CREATININE CLEARANCE IN PREDICTING GLOMERULAR FILTRATION RATE. ESTIMATED GFR IS NOT APPLICABLE FOR DIALYSIS PATIENTS. Specimen Performing Laboratory Blood [address] [address] BUN (07/11/2017 2:00 PM)Only the most recent of3 resultswithin the time period is included. Component Value Ref Range BUN 14 7 - 21 mg/dL Specimen Performing Laboratory Blood [address] [address] Creatinine (07/11/2017 2:00 PM)Only the most recent of3 resultswithin the time period is included. Component Value Ref Range Creatinine 0.78 0.57 - 1.25 mg/dL EGFR 74Comment: ESTIMATED GFR IS NOT ACCURATE mL/min/1.73 sq m CREATININE CLEARANCE IN PREDICTING GLOMERULAR FILTRATION RATE. ESTIMATED GFR IS NOT APPLICABLE FOR DIALYSIS PATIENTS. Specimen Performing Laboratory Blood [address] [address] after 10/30/2016
--- NOTE | 2017-10-31 18:18 | EKG ---
Test Date: 2017-10-31 Test Time: 17:34:58 [employer] Specialist: IRENE MEASUREMENT RESULTS: Intervals: Rate: 82 WV: 154 QRSD: 90 QT: 378 QTc: 441 [place]: P: 69 WV: 154 QRS: 40 T: 79 INTERPRETIVE STATEMENTS: Sinus rhythm with premature atrial complexes Nonspecific ST and T wave abnormality Abnormal ECG Compared to ECG 08/12/2017 04:42:30 Atrial premature complex(es) now present ST (T wave) deviation now present T-wave abnormality no longer present Electronically Signed On 10-31-17 18:17:50 CDT by Jackson Cooper
--- NOTE | 2017-10-31 18:18 | RAD REPORT ---
EXAM DESCRIPTION: Flash Single View10/31/2017 5:51 pm CLINICAL HISTORY: Chest pain COMPARISON: July 2017 FINDINGS: Right upper lobe opacity has developed. The left lung appears clear of acute infiltrate. The heart is mildly enlarged IMPRESSION: Right upper lobe opacity probably representing pneumonia. This should be followed until it has cleared to help exclude a post obstructive process/underlying mass
--- NOTE | 2017-10-31 18:58 | ER ---
Nurse's Notes [facility] Name: Marlen Santacruz Age: 67 yrs Sex: Female : 1950 Arrival Date: 10/31/2017 Time: 17:07 Bed 8 Private MD: Caleb Patel H Diagnosis: Pneumonia due to other specified bacteria;Chronic obstructive pulmonary disease with (acute) exacerbation Presentation: 10/31 17:12 Presenting complaint: Patient states: Right sided chest pain and SOB upon waking today, hb worse over last 3 hours. Transition of care: patient was not received from another setting of care. Onset of symptoms was October 31, 2017. Risk Assessment: Do you want to hurt yourself or someone else? Patient reports no desire to harm self or others. 17:12 Method Of Arrival: Wheelchair hb 17:12 Acuity: LINDEN 2 hb Triage Assessment: 17:14 General: Appears distressed, Behavior is cooperative. Pain: Pain currently is 9 out of hb 10 on a pain scale. Neuro: Level of Consciousness is awake, alert, obeys commands, Oriented to person, place, time, situation. Cardiovascular: Capillary refill < 3 seconds Patient's skin is warm and dry. Respiratory: Reports shortness of breath at rest cough that is non-productive, labored breathing Airway is patent Trachea midline Respiratory effort is labored, grunting Respiratory pattern is tachypnea Onset: The symptoms/episode began/occurred this morning, the patient has moderate shortness of breath. Historical: - Allergies: 17:13 Ciprofloxacin; hb 17:13 Demerol; hb 17:13 Ibuprofen; hb 17:13 Iodine; hb 17:13 Keflex; hb 17:13 Levaquin; hb 17:13 Morphine; hb 17:13 PENICILLINS; hb 17:13 Sporanox; hb - Home Meds: 20:55 Arava 20 mg Oral tab 1 tab once daily [Active]; Atrovent Inhl twice a day [Active]; aa1 Brovana 15 mcg/2 mL inhalation nebu 2 mL 2 times per day [Active]; budesonide 0.25mg Oral CECX 2 caps twice a day [Active]; sulfasalazine 500 mg Oral tab 1 tab twice a day [Active]; Cartia XT 150 mg Oral once daily [Active]; clonidine HCl 0.2 mg Oral tab 2 times per day [Active]; duloxetine 30 mg Oral cpDR 2 times per day [Active]; Esbriet 267 mg Oral cap 3 caps after meals [Active]; immune globul,gamma(IgG)-sorb-IgA 0 to 50 mcg/mL intravenous every 4 wks [Active]; Nasonex 50 mcg/actuation Nasal spry once daily [Active]; omeprazole 40 mg Oral cpDR 1 cap 2 times per day [Active]; prednisone 10 mg Oral tab once daily [Active]; propafenone 325 mg oral cp12 2 times per day [Active]; Creston 10-325 mg Oral tab [Active]; Xarelto 20 mg oral tab 1 tab once daily [Active]; - PMHx: 17:13 ADD/ADHD; Hypertension; COPD; Depression; GERD; Polyps Colon; Arthritis; Atrial Fib; hb Rheumatoid Arthritis; Polyps Stomach; Staph Infection Left Great Toe; - PSHx: 17:13 Heart stents; hb Screenin:40 Abuse screen: Denies threats or abuse. Denies injuries from another. Nutritional sg screening: No deficits noted. Tuberculosis screening: No symptoms or risk factors identified. Never had TB. Fall Risk None identified. Assessment: 18:00 General: Appears in no apparent distress. comfortable, well groomed, well developed, sg well nourished, Behavior is calm, cooperative, appropriate for age. Pain: Complains of pain in anterior aspect of right upper chest Quality of pain is described as "sore, i think its from coughing so much.". Neuro: Level of Consciousness is awake, alert, obeys commands, Oriented to person, place, time, Animal Physiologist are equal bilaterally Moves all extremities. Full function Speech is normal, Facial symmetry appears normal. Cardiovascular: Heart tones S1 S2 present Capillary refill is brisk in bilateral fingers Patient's skin is warm and dry. Chest pain is denied. Respiratory: Reports cough that is non-productive, dry, persistent Airway is patent Respiratory effort is even, unlabored, Respiratory pattern is regular, symmetrical, Breath sounds are coarse Breath sounds are diminished in right posterior middle lobe. GI: No signs and/or symptoms were reported involving the gastrointestinal system. : No signs and/or symptoms were reported regarding the genitourinary system. EENT: No signs and/or symptoms were reported regarding the EENT system. Derm: Skin is pink, warm \\T\\ dry. Rash noted that is red, on right cheek, nose and left cheek. Musculoskeletal: No signs and/or symptoms reported regarding the musculoskeletal system. 19:00 Reassessment: Patient appears in no apparent distress at this time. Patient and/or aa1 family updated on plan of care and expected duration. Pain level reassessed. Patient is alert, oriented x 3, equal unlabored respirations, skin warm/dry/pink. Awaiting labs. 20:17 Reassessment: Patient appears in no apparent distress at this time. Patient and/or aa1 family updated on plan of care and expected duration. Pain level reassessed. Patient is alert, oriented x 3, equal unlabored respirations, skin warm/dry/pink. Attempted to call report to 4th floor, was told nurse currently unavailable and will call back. 20:21 Reassessment: Pt taken to CT at this time. aa1 20:35 Reassessment: Pt back from CT. aa1 21:05 Reassessment: Patient appears in no apparent distress at this time. Patient is alert, aa1 oriented x 3, equal unlabored respirations, skin warm/dry/pink. Report given to Jami on 4th floor and pt taken upstairs at this time Patient states feeling better. Vital Signs: 17:11 BP 130 / 79; Pulse 100; Resp 28; Temp 98.5; Pulse Ox 89% on R/A; Pain 9/10; hb 17:19 Pulse Ox 99% on 3 lpm NC; hb 19:00 BP 163 / 101; Pulse 80; Resp 26; Pulse Ox 98% on 2 lpm NC; Pain 9/10; aa1 20:11 BP 138 / 86; Pulse 85; Resp 24; Pulse Ox 97% on 2 lpm NC; Pain 8/10; aa1 ED Course: 17:07 Patient arrived in ED. mr 17:07 Caleb Patel DO is Private Physician. mr 17:12 Triage completed. hb 17:12 Arm band placed on right wrist. hb 17:21 Michelet Peres PA is PHCP. jr8 17:21 Michael Erwin MD is Attending Physician. jr8 17:27 Tyler Fay, MANJINDER is Primary Nurse. sg 18:06 EKG done, by manufacturing tech. reviewed by Michelet BOWEN. sm3 18:40 Initial lab(s) drawn, by me, sent to lab. First set of blood cultures drawn by me. sg Missed attempt(s): 20 gauge in right antecubital area. 22 gauge in right forearm. Bleeding controlled, band aid applied, catheter tip intact. 18:58 Valentin Ray MD is Hospitalizing Provider. jr8 19:00 Patient has correct armband on for positive identification. Placed in gown. Bed in low aa1 position. Call light in reach. Side rails up X2. medical examiner on. Pulse ox on. NIBP on. Warm blanket given. 19:00 Oxygen administration via nasal cannula \\T\\ 3L/min. aa1 19:15 Second set of blood cultures drawn by me. Inserted saline lock: 20 gauge in left upper aa1 arm, using aseptic technique. Blood collected. 19:31 Primary Nurse role handed off by Tyler Fay RN rg2 19:38 Aissatou Almaguer RN is Primary Nurse. aa1 20:07 Assisted to bedside commode. aa1 20:15 Patient moved to [place]. sw 20:29 CT completed. Patient tolerated procedure well. Patient moved back from [place]. nj 21:10 No provider procedures requiring assistance completed. Patient admitted, IV remains in aa1 place. Administered Medications: 19:20 Drug: Zithromax 500 mg Route: IVPB; Infused Over: 1 hrs; Site: left upper arm; aa1 21:10 Follow up: IV Status: Completed infusion aa1 19:20 Drug: Doxycycline 100 mg Route: PO; aa1 21:09 Follow up: Response: No adverse reaction aa1 20:00 Drug: Potassium Chloride 40 mEq Route: PO; aa1 21:05 Follow up: Response: No adverse reaction aa1 20:00 Drug: HYDROcodone-acetaminophen 5 mg-325 mg 1 tabs Route: PO; aa1 21:05 Follow up: Response: No adverse reaction; Pain is decreased aa1 20:05 Not Given (Patient Refused): Magnesium Sulfate 1 grams IVPB once over 1 hrs aa1 Outcome: 18:58 Decision to Hospitalize by Provider. jr8 21:05 Admitted to Tele accompanied by tech, family with patient, via stretcher, room 402, aa1 with oxygen, with chart, Report called to Jami 21:05 Condition: stable 21:05 Instructed on the need for admit, Demonstrated understanding of instructions. 21:12 Patient left the ED. aa1 Signatures: Ray Rashid rg2 Tyler Fay RN RN Aissatou Dash RN RN aa1 Rocio Partida mr Michelet Peres PA PA jr8 Becky Manley Heather, RN RN hb Jordan, Jodi Edmonds 3
--- NOTE | 2017-10-31 18:58 | EDPHYS ---
Physician Documentation [facility] Name: Marlen Santacruz Age: 67 yrs Sex: Female : 1950 Arrival Date: 10/31/2017 Time: 17:07 Bed 8 Private MD: Caleb Patel H ED Physician Michael Erwin HPI: 10/31 17:44 This 67 yrs old Female presents to ER via Wheelchair with complaints of Blood jr8 Pressure Problem, Breathing Difficulty. 17:44 Patient stated that she had increased shortness of breath that started yesterday. Blood jr8 pressure was elevated. Stated that she had some chest pain as well. History of atrial fibrillation. Wants to make sure she is not having a problem with that again . It is unknown whether or not the patient has had similar symptoms in the past. The patient has not recently seen a physician. Historical: - Allergies: 17:13 Ciprofloxacin; hb 17:13 Demerol; hb 17:13 Ibuprofen; hb 17:13 Iodine; hb 17:13 Keflex; hb 17:13 Levaquin; hb 17:13 Morphine; hb 17:13 PENICILLINS; hb 17:13 Sporanox; hb - Home Meds: 20:55 Arava 20 mg Oral tab 1 tab once daily [Active]; Atrovent Inhl twice a day [Active]; aa1 Brovana 15 mcg/2 mL inhalation nebu 2 mL 2 times per day [Active]; budesonide 0.25mg Oral CECX 2 caps twice a day [Active]; sulfasalazine 500 mg Oral tab 1 tab twice a day [Active]; Cartia XT 150 mg Oral once daily [Active]; clonidine HCl 0.2 mg Oral tab 2 times per day [Active]; duloxetine 30 mg Oral cpDR 2 times per day [Active]; Esbriet 267 mg Oral cap 3 caps after meals [Active]; immune globul,gamma(IgG)-sorb-IgA 0 to 50 mcg/mL intravenous every 4 wks [Active]; Nasonex 50 mcg/actuation Nasal spry once daily [Active]; omeprazole 40 mg Oral cpDR 1 cap 2 times per day [Active]; prednisone 10 mg Oral tab once daily [Active]; propafenone 325 mg oral cp12 2 times per day [Active]; Rowley 10-325 mg Oral tab [Active]; Xarelto 20 mg oral tab 1 tab once daily [Active]; - PMHx: 17:13 ADD/ADHD; Hypertension; COPD; Depression; GERD; Polyps Colon; Arthritis; Atrial Fib; hb Rheumatoid Arthritis; Polyps Stomach; Staph Infection Left Great Toe; - PSHx: 17:13 Heart stents; hb ROS: 17:44 Eyes: Negative for injury, pain, redness, and discharge, ENT: Negative for injury, jr8 pain, and discharge, Neck: Negative for injury, pain, and swelling, Abdomen/GI: Negative for abdominal pain, nausea, vomiting, diarrhea, and constipation, Back: Negative for injury and pain, MS/Extremity: Negative for injury and deformity, Skin: Negative for injury, rash, and discoloration, Neuro: Negative for headache, weakness, numbness, tingling, and seizure. 17:44 Cardiovascular: Positive for chest pain, Negative for edema, orthopnea, palpitations, paroxysmal nocturnal dyspnea. 17:44 Respiratory: Positive for cough, shortness of breath. Exam: 17:44 Eyes: Pupils equal round and reactive to light, extra-ocular motions intact. Lids and jr8 lashes normal. Conjunctiva and sclera are non-icteric and not injected. Cornea within normal limits. Periorbital areas with no swelling, redness, or edema. ENT: Nares patent. No nasal discharge, no septal abnormalities noted. Tympanic membranes are normal and external auditory canals are clear. Oropharynx with no redness, swelling, or masses, exudates, or evidence of obstruction, uvula midline. Mucous membranes moist. Neck: Trachea midline, no thyromegaly or masses palpated, and no cervical lymphadenopathy. Supple, full range of motion without nuchal rigidity, or vertebral point tenderness. No Meningismus. Abdomen/GI: Soft, non-tender, with normal bowel sounds. No distension or tympany. No guarding or rebound. No evidence of tenderness throughout. Back: No spinal tenderness. No costovertebral tenderness. Full range of motion. Skin: Warm, dry with normal turgor. Normal color with no rashes, no lesions, and no evidence of cellulitis. MS/ Extremity: Pulses equal, no cyanosis. Neurovascular intact. Full, normal range of motion. Neuro: Awake and alert, GCS 15, oriented to person, place, time, and situation. Cranial nerves II-XII grossly intact. Motor strength 5/5 in all extremities. Sensory grossly intact. Cerebellar exam normal. Normal gait. 17:44 Cardiovascular: Rate: normal, Rhythm: irregular, Pulses: Pulses are 2+ in right radial artery and left radial artery. Heart sounds: normal, normal S1and S2, no S3 or S4, no murmur, no rub, no gallop, Edema: is not appreciated, JVD: is not appreciated. 17:44 Respiratory: the patient does not display signs of respiratory distress, Respirations: tachypnea, Breath sounds: rhonchi, that are moderate, are heard diffusely. Vital Signs: 17:11 BP 130 / 79; Pulse 100; Resp 28; Temp 98.5; Pulse Ox 89% on R/A; Pain 9/10; hb 17:19 Pulse Ox 99% on 3 lpm NC; hb 19:00 BP 163 / 101; Pulse 80; Resp 26; Pulse Ox 98% on 2 lpm NC; Pain 9/10; aa1 20:11 BP 138 / 86; Pulse 85; Resp 24; Pulse Ox 97% on 2 lpm NC; Pain 8/10; aa1 MDM: 17:21 Patient medically screened. jr8 18:57 Data reviewed: vital signs, nurses notes, lab test result(s), EKG, radiologic studies, [facility] plain films, and as a result, I will admit patient. Data interpreted: Pulse oximetry: on room air is 89 %. Counseling: I had a detailed discussion with the patient and/or guardian regarding: the historical points, exam findings, and any diagnostic results supporting the discharge/admit diagnosis, lab results, radiology results, the need for further work-up and treatment in the hospital. 10/31 17:33 Order name: Basic Metabolic Panel [facility] 10/31 17:33 Order name: CBC with Diff [facility] 10/31 17:33 Order name: LFT's [facility] 10/31 17:33 Order name: Magnesium [facility] 10/31 17:33 Order name: NT PRO-BNP [facility] 10/31 17:33 Order name: PT-INR [facility] 10/31 17:33 Order name: Troponin (emerg Dept Use Only) [facility] 10/31 18:36 Order name: Urine Dipstick--Ancillary (enter results) 10/31 19:14 Order name: CBC with Automated Diff; Complete Time: 19:23 EDMS 10/31 19:18 Order name: Blood Culture Adult (2) aa1 10/31 19:34 Order name: Basic Metabolic Panel; Complete Time: 19:36 EDMS 10/31 19:34 Order name: Liver (Hepatic) Function; Complete Time: 19:36 EDMS 10/31 19:34 Order name: NT PRO-BNP; Complete Time: 19:36 EDMS 10/31 19:34 Order name: Magnesium; Complete Time: 19:36 EDMS 10/31 17:33 Order name: XRAY Chest (1 view) 10/31 17:33 Order name: EKG; Complete Time: 17:34 10/31 17:33 Order name: Cardiac monitoring; Complete Time: 19:16 10/31 17:33 Order name: EKG - Nurse/Tech; Complete Time: 19:16 10/31 17:33 Order name: IV Saline Lock; Complete Time: 19:16 10/31 18:19 Order name: RAD; Complete Time: 18:22 EDMS 10/31 19:38 Order name: Troponin (Emerg Dept Use Only); Complete Time: 19:42 EDMS 10/31 20:04 Order name: Protime (+INR); Complete Time: 20:17 EDMS 10/31 20:43 Order name: CT; Complete Time: 20:48 EDMS 10/31 21:02 Order name: Lactate; Complete Time: 21:03 EDMS 10/31 21:07 Order name: Urine Dipstick-Ancillary; Complete Time: 21:42 EDMS 10/31 17:33 Order name: Labs collected and sent; Complete Time: 19:16 10/31 17:33 Order name: O2 Per Protocol; Complete Time: 19:17 10/31 17:33 Order name: O2 Sat Monitoring; Complete Time: 19:17 10/31 17:33 Order name: Urine Dipstick-Ancillary (obtain specimen); Complete Time: 19:17 Administered Medications: 19:20 Drug: Zithromax 500 mg Route: IVPB; Infused Over: 1 hrs; Site: left upper arm; aa1 21:10 Follow up: IV Status: Completed infusion aa1 19:20 Drug: Doxycycline 100 mg Route: PO; aa1 21:09 Follow up: Response: No adverse reaction aa1 20:00 Drug: Potassium Chloride 40 mEq Route: PO; aa1 21:05 Follow up: Response: No adverse reaction aa1 20:00 Drug: HYDROcodone-acetaminophen 5 mg-325 mg 1 tabs Route: PO; aa1 21:05 Follow up: Response: No adverse reaction; Pain is decreased aa1 20:05 Not Given (Patient Refused): Magnesium Sulfate 1 grams IVPB once over 1 hrs aa1 Disposition: 11/01 07:09 Co-signature as Attending Physician, Michael Erwin MD. rn Disposition: 10/31/17 18:58 Hospitalization ordered by Valentin Ray for Observation. Preliminary diagnosis are Pneumonia due to other specified bacteria, Chronic obstructive pulmonary disease with (acute) exacerbation. - Bed requested for Telemetry/MedSurg (observation). - Status is Observation. aa1 - Condition is Stable. - Problem is new. - Symptoms have improved. UTI on Admission? No Signatures: Dispatcher [employer] EDND Ray Rashid rg2 Aissatou Almaguer RN RN aa1 Michael Erwin MD MD rn Roszak, Josh, PA PA jr8 Alexa Gandara RN RN Corrections: (The following items were deleted from the chart) 10/31 17:46 17:44 Cardiovascular: Rate: normal, Rhythm: irregularly irregular, Pulses: Pulses are jr8 2+ in right radial artery and left radial artery. Heart sounds: normal, normal S1and S2, no S3 or S4, no murmur, no rub, no gallop, Edema: is not appreciated, JVD: is not appreciated, jr8 19:36 18:58 Hospitalization Ordered by Valentin Ray MD for Inpatient Admission. Preliminary jr8 diagnosis is Pneumonia due to other specified bacteria; Chronic obstructive pulmonary disease with (acute) exacerbation. Bed requested for Telemetry/MedSurg (Inpatient). Status is Inpatient Admission. Condition is Stable. Problem is new. Symptoms have improved. UTI on Admission? No. jr8 20:02 19:36 10/31/2017 18:58 Hospitalization Ordered by Valentin Ray MD for Observation. rg2 Preliminary diagnosis is Pneumonia due to other specified bacteria; Chronic obstructive pulmonary disease with (acute) exacerbation. Bed requested for Telemetry/MedSurg (observation). Status is Observation. Condition is Stable. Problem is new. Symptoms have improved. UTI on Admission? No. jr8 21:12 20:02 10/31/2017 18:58 Hospitalization Ordered by Valentin Ray MD for Observation. aa1 Preliminary diagnosis is Pneumonia due to other specified bacteria; Chronic obstructive pulmonary disease with (acute) exacerbation. Bed requested for Telemetry/MedSurg (observation). Status is Observation. Condition is Stable. Problem is new. Symptoms have improved. UTI on Admission? No. rg2
[2017-10-31 19:14] LABS: Absolute Lymphocytes (CBC) 0.6 K/uL (0.7-4.9); Absolute Monocytes 0.6 K/uL (0.1-1.3); Absolute Neutrophil 7.5 K/uL (1.8-8.0); Basophils % 0.6 % (0-1.3); Eosinophils % 1.3 % (0-4.4); Hematocrit 36.6 % (36.0-45.0); Lymphocytes % 7.2 % (15.3-44.8); MCH 27.2 pg (27.0-35.0); MCV 82.7 fL (80-100); Monocytes % 6.7 % (3.3-12.3); RBC Red Blood Cell Count 4.43 M/uL (3.86-4.86)
[2017-10-31 19:17] LABS: Protime INR 1.81
[2017-10-31] MEDS ORDERED: DOXYCYCLINE 100 MG CAP PO ONE (19:25)
[2017-10-31] MEDS ORDERED: AZITHROMYCIN 500 MG/250 ML BAG ONE (19:25)
[2017-10-31 19:34] LABS: ALT/SGPT 13 U/L (12-78); AST/SGOT 15 U/L (15-37); Alkaline Phosphatase 85 U/L (45-117); BUN Blood Urea Nitrogen 7 mg/dL (7-18); Bicarbonate 31 mmol/L (21-32); Bilirubin Direct < 0.1 mg/dL (0-0.2); Bilirubin Total 0.3 mg/dL (0.2-1.0); Glucose Level 129 mg/dL (74-106); Magnesium 1.7 mg/dL (1.8-2.4); NT PRO-BNP 3496 pg/mL (<125); Protein, Total 7.5 g/dL (6.4-8.2); Sodium Level 139 mmol/L (136-145)
[2017-10-31] MEDS ORDERED: POTASSIUM CL SA 10 MEQ TAB PO ONE (20:00)
[2017-10-31] MEDS ORDERED: HYDROCODONE/APAP 5/325 MG TAB ONE (20:00)
--- NOTE | 2017-10-31 20:09 | P.HP ---
Certification for Inpatient Patient admitted to: Inpatient With expected LOS: >2 Midnights Practitioner: I am a practitioner with admitting privileges, knowledge of patient current condition, hospital course, and medical plan of care. Services: Services provided to patient in accordance with Admission requirements found in Title 42 Section 412.3 of the Code of Federal Regulations Patient History Date of Service: 10/31/17 Reason for admission: COPD exacerbation History of Present Illness: Ms Santacruz is a 67 years old woman with multiple medical problems including A.Fib , S/P ablation, RA, COPD on home oxygen 3L by [place], who start about 2 weeks ago with progressive SOB and productive cough. She still has her normal thick clear secretion. She denied fever or chills, but has had some sweating episodes. No bloody sputum reported. Today she came to ED because her symptoms were getting significantly worse. In ED lab work shows normal WBC count, lactate and procalcitonin are pending. CXR remarkable for right upper lobe opacity. EKG shows SR with PAC's and nonspecific ST-T abnormalities. Allergies cephalexin monohydrate [From Keflex] Allergy (Intermediate, Verified 08/12/17 08 :33) Itching/Hives/Rash iodine [Iodine] Allergy (Intermediate, Verified 08/12/17 08:33) Itching/Hives/Rash itraconazole [From Sporanox] Allergy (Intermediate, Verified 08/12/17 08:33) Itching/Hives/Rash levofloxacin [From Levaquin] Allergy (Intermediate, Verified 08/12/17 08:33) Itching/Hives/Rash meperidine HCl [From Demerol] Allergy (Intermediate, Verified 08/12/17 08:33) Itching/Hives/Rash Penicillins Allergy (Intermediate, Verified 08/12/17 08:33) Itching/Hives/Rash morphine Allergy (Mild, Verified 08/12/17 08:33) Itching/Hives/Rash ciprofloxacin Allergy (Verified 08/12/17 08:33) Itching/Hives/Rash Home medications list reviewed: Yes Home Medications: Sulfasalazine [Sulfazine] 2 tab PO BID 09/10/11 Leflunomide [Arava] 20 mg PO DAILY #30 11/27/16 Mometasone Furoate [Nasonex] 2 spr NS DAILY #1 11/27/16 cloNIDine HCl [Clonidine HCl] 0.2 mg PO BID #60 11/27/16 Codeine/APAP [Tylenol #3*] 1 tab PO TIDP PRN 03/06/17 Diltiazem HCl [Cartia Xt] 240 mg PO DAILY 03/06/17 Arformoterol Tartrate [Brovana] 2 ml IH BID PRN 06/17/17 Duloxetine [Cymbalta *] 60 mg PO DAILY 06/17/17 Ipratropium Mdi [Atrovent Hf Inhaler*] 1 puff IH BID 06/17/17 Budesonide [Pulmicort*] 2 puff IH BID PRN 08/12/17 Hydrocodone Bit/Acetaminophen [Hydrocodon-Acetaminophn 10-325] 1 each PO TID PRN 08/12/17 Omeprazole [Prilosec] 40 mg PO BID 08/12/17 Rivaroxaban [Xarelto*] 20 mg PO 1700 08/12/17 predniSONE [Deltasone*] 10 mg PO DAILY 08/12/17 Spironolactone [Aldactone*] 25 mg PO DAILY #30 tab 08/13/17 - Past Medical/Surgical History Diabetic: No -: Rheumatoid Arthritis -: Interstitial Lung Disease -: Sleep Apnea -: Lichen Plant[place] -: osteopenia -: High Cholesterol -: COPD -: Afib -: Bronchiectis -: Hiatal Hernia -: GERD -: depression -: Tonsilectomy -: Appendectomy, Kelle -: Hysterectomy -: Multiple ganglion cyst removal -: Knee Replacement rohini -: Tendon repair bilateral wrist -: Knuckle removal in toes on R foot/hands -: Multiple bursectomy excision - Family History Sister -: Hypertension, Lung disease, Other (see notes) Notes: rotoscoliasis, sleep apnea, hyperlipidemia Brother -: Hypertension, Diabetes, Other (see notes) Notes: gout, hyperlipidemia Mother -: Hypertension, Cancer Notes: klatskin tumor Father -: Heart disease, Hypertension, Lung disease, Diabetes, Cancer, Other (see notes ) Notes: lung cancer, gout - Social History Smoking Status: Former smoker Alcohol use: No CD- Drugs: No Caffeine use: No Place of Residence: Home Review of Systems 10-point ROS is otherwise unremarkable Physical Examination - Physical Exam General: Alert, In no apparent distress HEENT: Atraumatic, PERRLA, Mucous membr. moist/pink, EOMI, Sclerae nonicteric Neck: Supple, 2+ carotid pulse no bruit, No LAD, Without JVD or thyroid abnormality Respiratory: Diminished, Crackles/rales (crackles on the right middle field) Cardiovascular: Regular rate/rhythm, Normal S1 S2 Gastrointestinal: Normal bowel sounds, No tenderness Musculoskeletal: No tenderness Integumentary: No rashes Neurological: Normal speech, Normal strength at 5/5 x4 extr, Normal tone, Normal affect Lymphatics: No axilla or inguinal lymphadenopathy - Studies Laboratory Data (last 24 hrs) 10/31/17 19:00: PT 21.5 H, INR 1.81 10/31/17 19:00: WBC 8.9, Hgb 12.1, Hct 36.6, Plt Count 215 10/31/17 19:00: Sodium 139, Potassium 3.0 L, BUN 7, Creatinine 0.80, Glucose 129 H, Magnesium 1.7 L, Total Bilirubin 0.3, AST 15, ALT 13, Alkaline Phosphatase 85 Assessment and Plan - Problems (Diagnosis) (1) History of atrial fibrillation Current Visit: Yes Status: Acute (2) COPD exacerbation Onset Date: 02/26/16 Current Visit: No Status: Acute (3) Hypokalemia Onset Date: 10/21/16 Current Visit: No Status: Acute (4) Pneumonia Current Visit: No Status: Acute Qualifiers: Pneumonia type: due to unspecified organism Laterality: right Lung location: lower lobe of lung Qualified Code(s): J18.1 - Lobar pneumonia, unspecified organism (5) Rheumatoid arthritis Onset Date: 10/21/16 Current Visit: No Status: Chronic Qualifiers: Rheumatoid arthritis location: unspecified site Rheumatoid factor presence : unspecified presence Qualified Code(s): M06.9 - Rheumatoid arthritis, unspecified - Plan Ms Santacruz will be admitted to the hospital due to COPD exacerbation due to possible right upper lobe pneumonia. Will order a CT chest for better assessment. Continue empiric treatment with doxycycline and Azithromycin ( patient has several drugs allergies), Continue oxygen suport, breathing treatments and IV steroids. Consult Dr Calvo. Will replace potassium as needed by protocol. - Advance Directives Does patient have a Living Will: No Does patient have a Durable POA for Healthcare: No - Code Status/Comfort Care Code Status Assessed: Yes Code Status: Full Code
--- NOTE | 2017-10-31 20:43 | RAD REPORT ---
EXAM DESCRIPTION: CT - [facility] - 10/31/2017 8:30 pm CLINICAL HISTORY: Chest pain COMPARISON: October 31 chest x-ray TECHNIQUE: Computed axial tomography of the chest was obtained. Contrast was not requested. All CT scans are performed using dose optimization technique as appropriate and may include automated exposure control or mA/KV adjustment according to patient size. FINDINGS: The evaluation of mediastinum, reuben and vessels is limited secondary to lack of IV contras t administration. A 5.5 centimeter opacity is present within the medial right upper lobe. Moderate bilateral subpleural interstitial opacities have the appearance pulmonary fibrosis. Anterior and middle mediastinal lymph nodes are present measuring up to 2.4 centimeters. Mild right h ilar lymphadenopathy is suspected. A minimal right pleural effusion is present IMPRESSION: 5.5 centimeter opacity within the medial right upper lobe probably representing neoplasm , less likely pneumonia. Bronchoscopy is recommended Mediastinal lymphadenopathy. Probable mild right hilar lymphadenopathy. This likely represents neopl astic involvement
[2017-10-31 21:06] LABS: Urine Blood TRACE (NEG); Urine Glucose NEGATIVE (NEG); Urine Protein 1+ (NEG); Urine Specific Gravity 1.005 (1.005-1.030)
[2017-10-31] MEDS ORDERED: ONDANSETRON 4 MG/2 ML VIAL IV PRN (21:20)
[2017-10-31] MEDS: DOXYCYCLINE 100 MG in NA CHLORIDE 0.9% 100 ML IVPB SCH (21:20)
[2017-10-31] MEDS ORDERED: ACETAMINOPHEN 500 MG TAB PO PRN (21:20)
[2017-10-31] MEDS ORDERED: NA CHLORIDE 0.9% 1,000 ML IV SCH (21:20)
[2017-10-31 21:35] VITALS: BMI 37.8
[2017-10-31] MEDS: ALBUTEROL 2.5 MG/3 ML NEB SOL NEB PRN (22:31)
[2017-10-31] MEDS: IPRATROPIUM BROM 0.5MG/2.5ML NEB PRN (22:31)
[2017-10-31] MEDS ORDERED: DOXYCYCLINE HYCLATE 100MG INJ ONE (23:39)
[2017-10-31] MEDS ORDERED: NA CHLORIDE 0.9% 100 ML ONE (23:42)
[2017-10-31] MEDS ORDERED: cloNIDine HCl 0.1 MG TAB PO ONE (23:49)
[2017-10-31] MEDS ORDERED: SULFASALAZINE 500 MG E.C. TAB PO ONE (23:58)
[2017-11-01] MEDS: METHYLPREDNISOLONE 40 MG INJ IV SCH ×4 (00:07→17:02)
[2017-11-01] MEDS ORDERED: guaiFENesin 100 MG/5 ML UCUP PO PRN (02:26)
[2017-11-01] MEDS: IPRATROPIUM BROM 0.5MG/2.5ML NEB PRN ×3 (02:48→15:52)
[2017-11-01] MEDS: ALBUTEROL 2.5 MG/3 ML NEB SOL NEB PRN (02:48)
[2017-11-01 05:17] LABS: Absolute Lymphocytes (CBC) 0.4 K/uL (0.7-4.9); Absolute Monocytes 0.2 K/uL (0.1-1.3); Absolute Neutrophil 7.1 K/uL (1.8-8.0); Basophils % 0.3 % (0-1.3); Eosinophils % 0.2 % (0-4.4); Hematocrit 34.3 % (36.0-45.0); Lymphocytes % 4.7 % (15.3-44.8); MCH 27.9 pg (27.0-35.0); MCV 83.4 fL (80-100); MPV 8.2 fL (7.6-11.3); Monocytes % 2.2 % (3.3-12.3); RBC Red Blood Cell Count 4.11 M/uL (3.86-4.86)
[2017-11-01 05:45] LABS: Magnesium 1.8 mg/dL (1.8-2.4); Potassium 3.3 mmol/L (3.5-5.1)
[2017-11-01] MEDS ORDERED: HYDROCODONE/APAP 10/325 TAB PO PRN (06:36)
[2017-11-01] MEDS: TRAMADOL HCL 50 MG TAB PO PRN ×3 (06:52→22:16)
[2017-11-01] MEDS ORDERED: MAGNESIUM SULFATE 1 gm IVPB 1 GM/100 ML BAG IV ONE (07:00)
[2017-11-01] MEDS ORDERED: POTASSIUM CL SA 10 MEQ TAB PO ONE (07:00)
[2017-11-01] MEDS: ARFORMOTEROL TARTRATE 15 MCG/2 ML VIAL.NEB NEB SCH ×2 (07:45→20:08)
[2017-11-01] MEDS ORDERED: RIVAROXABAN 10 MG TABLET PO SCH (09:00)
[2017-11-01] MEDS ORDERED: DULOXETINE 30 MG CAP PO SCH (09:00)
[2017-11-01] MEDS ORDERED: AMITRIPTYLINE 50 MG TAB PO SCH (09:00)
[2017-11-01] MEDS ORDERED: AZITHROMYCIN IV 500 MG in NA CHLORIDE 0.9% 250 ML IVPB SCH (09:00)
[2017-11-01] MEDS: MOMETASONE FUROATE NS SCH (09:00)
[2017-11-01] MEDS ORDERED: cloNIDine HCl 0.1 MG TAB PO SCH (09:00)
[2017-11-01] MEDS: DOXYCYCLINE 100 MG in NA CHLORIDE 0.9% 100 ML IVPB SCH (09:26)
[2017-11-01 10:26] LABS: Blood Morphology Comment NOT SEEN (NOT SEEN); Platelet Estimate ADEQ
--- NOTE | 2017-11-01 10:42 | P.PN ---
Subjective Date of Service: 11/01/17 Primary Care Provider: Dr. Patel; Pulmonary-Dr. Grier([facility]) Chief Complaint: COPD exacerbation Subjective: Other (Patient with increased cough, wheezing.) Physical Examination - Vital Signs Temperature: 97 F Blood Pressure: 186/109 Pulse: 84 Respirations: 18 Pulse Ox (%): 92 - Physical Exam General: Alert, In no apparent distress, Oriented x3, Cooperative HEENT: Atraumatic Neck: Supple Respiratory: Expiratory wheezes (Bilateral) Cardiovascular: Normal pulses, Regular rate/rhythm Gastrointestinal: Normal bowel sounds, Soft and benign, Non-distended, No tenderness, No masses, No rebound, No guarding Musculoskeletal: No erythema, No tenderness, No warmth Integumentary: No erythema, No warmth, No cyanosis, Other (Rheumatological changes noted to the extremities) Neurological: Normal speech, Normal strength at 5/5 x4 extr, Normal tone, Normal affect - Studies Laboratory Data (last 24 hrs) 10/31/17 19:00: PT 21.5 H, INR 1.81 10/31/17 19:00: WBC 8.9, Hgb 12.1, Hct 36.6, Plt Count 215 10/31/17 19:00: Sodium 139, Potassium 3.0 L, BUN 7, Creatinine 0.80, Glucose 129 H, Magnesium 1.7 L, Total Bilirubin 0.3, AST 15, ALT 13, Alkaline Phosphatase 85 Medications List Reviewed: Yes Assessment & Plan - Problems (Diagnosis) (1) COPD (chronic obstructive pulmonary disease) Current Visit: Yes Status: Acute Plan: Patient with acute COPD exacerbation. Patient with home oxygen and chronic steroids. CT scan shows 5 cm opacity within the medial right upper lobe probably representing neoplasm less likely pneumonia. Mild right hilar lymphadenopathy noted with mediastinal lymphadenopathy. Likely representing neoplastic involvement. Patient with history of pulmonary fibrosis. Patient seen by pulmonology in [place] at [facility]. Pulmonology consulted to further assess. Patient may require bronchoscopy. She would discuss the possibility of bronchoscopy either here or up in [place]. Will continue with COPD treatment. Patient also on chronic steroids. Will need to consider discontinuing IV antibiotic therapy. Will discuss with pulmonology. Qualifiers: COPD type: COPD with acute exacerbation Qualified Code(s): J44.1 - Chronic obstructive pulmonary disease with (acute) exacerbation (2) Abnormal CT scan Current Visit: Yes Status: Acute Plan: Abnormal finding noted on CT scan. Lung cancer with possible metastasis likely. Continue as above. (3) Lung cancer Current Visit: Yes Status: Suspected Plan: CT scan shows 5 cm opacity to the medial right upper lobe. Likely neoplasm. Continue as above. Patient will need bronchoscopy. 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 Qualifiers: Laterality: right Lung location: upper lobe of lung Qualified Code(s): C34.11 - Malignant neoplasm of upper lobe, right bronchus or lung (4) Lymphadenopathy Current Visit: Yes Status: Acute Plan: Mediastinal lymphadenopathy and mild right hilar lymphadenopathy noted. Continue as above. (5) Atrial fibrillation Current Visit: Yes Status: Chronic Plan: Will continue with her medication. Qualifiers: Atrial fibrillation type: chronic Qualified Code(s): I48.2 - Chronic atrial fibrillation (6) Chronic anticoagulation Current Visit: Yes Status: Chronic Plan: Will change Xarelto to Lovenox as the patient may require bronchoscopy. (7) Hypothyroidism Current Visit: No Status: Chronic Plan: Will continue with her medication Qualifiers: Hypothyroidism type: unspecified Qualified Code(s): E03.9 - Hypothyroidism , unspecified (8) Chronic pain Current Visit: No Status: Chronic Plan: Will continue with medication. Patient with rheumatoid arthritis Qualifiers: Chronic pain type: chronic pain syndrome (9) Chronic steroid use Current Visit: No Status: Chronic Plan: Patient takes chronic steroids for rheumatoid arthritis and pulmonary fibrosis. Patient on IV steroids at this time. (10) Gastroesophageal reflux disease Onset Date: 10/21/16 Current Visit: No Status: Chronic Plan: Continue with PPI. Qualifiers: Esophagitis presence: with esophagitis Qualified Code(s): K21.0 - Gastro- esophageal reflux disease with esophagitis (11) Hypertension Onset Date: 10/21/16 Current Visit: No Status: Chronic Plan: Continue with her medication. May need further adjustment in medication. Qualifiers: Hypertension type: essential hypertension (12) Pulmonary fibrosis Onset Date: 10/21/16 Current Visit: No Status: Chronic Plan: Will continue with her medication. Patient seen by pulmonology in [place]. (13) Rheumatoid arthritis Onset Date: 10/21/16 Current Visit: No Status: Chronic Plan: Will continue with her medication. Qualifiers: Rheumatoid arthritis location: unspecified site Rheumatoid factor presence : unspecified presence Qualified Code(s): M06.9 - Rheumatoid arthritis, unspecified (14) Obesity Current Visit: Yes Status: Chronic Plan: Will address lifestyle modification education Qualifiers: Obesity type: due to excess calories Obesity classification: adult class 2 (BMI 35 - 39.9) Serious obesity comorbidity presence: with serious comorbidity Body mass index: BMI 37.0-37.9 Qualified Code(s): E66.01 - Morbid (severe) obesity due to excess calories; Z68.37 - Body mass index (BMI) 37.0-37.9, adult Discharge Plan: Home Plan to discharge in: 24 Hours Time Spent Managing Pts Care (In Minutes): 55
[2017-11-01] MEDS: LEFLUNOMIDE 20 MG PO SCH (10:57)
[2017-11-01] MEDS: OMEPRAZOLE 40 MG CAPSULE PO SCH ×2 (10:59→22:00)
[2017-11-01] MEDS: PROPAFENONE HCL 325 MG PO SCH ×2 (11:00→22:00)
[2017-11-01] MEDS: AMITRIPTYLINE 50 MG TABLET PO SCH ×2 (11:02→21:57)
[2017-11-01] MEDS: CARTIA XT 240 MG PO SCH (11:03)
[2017-11-01] MEDS: DULOXETINE DR 60 MG CAPSULE PO SCH (11:04)
[2017-11-01] MEDS: ENOXAPARIN 100 MG/ML SYR SQ SCH ×2 (11:06→22:02)
[2017-11-01] MEDS: BENZONATATE 100 MG CAP PO PRN ×2 (12:25→22:17)
[2017-11-01] MEDS ORDERED: levoFLOXacin 750 MG TAB PO SCH (19:08)
--- NOTE | 2017-11-01 19:09 | P.CNS ---
Date of Consult: 11/01/17 Reason for Consult: A right lung mass Primary Care Provider: Dr. Patel; Pulmonary-Dr. Greir([facility]) Chief Complaint: COPD exacerbation History of Present Illness: Patient is 67 years of age well known to me she is complaining of 1 week history of increasing cough congestion worse over the past 3 days was admitted with the diagnosis off iron pneumonia lung mass with mediastinal adenopathy possible lung cancer and exacerbation of underlying COPD patient is a former smoker compliant with her bronchodilators denies any chest pain or weight loss no other complaints has some swelling of her lower extremities Allergies meperidine HCl [From Demerol] Allergy (Intermediate, Verified 10/31/17 22:53) Itching/Hives/Rash cephalexin [From Keflex] Allergy (Verified 10/31/17 22:55) Itching/Hives/Rash iodine Allergy (Verified 10/31/17 22:56) Itching/Hives/Rash itraconazole [From Sporanox] Allergy (Verified 10/31/17 22:57) Hives/Rash morphine Allergy (Verified 10/31/17 22:56) Itching/Hives/Rash Penicillins Allergy (Verified 10/31/17 22:57) Itching/Hives/Rash ciprofloxacin Adverse Reaction (Verified 10/31/17 22:55) Hives/Rash Home Medications: Sulfasalazine [Sulfazine] 2 tab PO BID 09/10/11 Leflunomide [Arava] 20 mg PO DAILY #30 11/27/16 Mometasone Furoate [Nasonex] 2 spr NS DAILY #1 11/27/16 cloNIDine HCl [Clonidine HCl] 0.2 mg PO BID #60 11/27/16 Arformoterol Tartrate [Brovana] 2 ml IH BID PRN 06/17/17 Duloxetine [Cymbalta *] 60 mg PO DAILY 06/17/17 Ipratropium Mdi [Atrovent Hf Inhaler*] 1 puff IH BID 06/17/17 Budesonide [Pulmicort*] 2 puff IH BID PRN 08/12/17 Hydrocodone Bit/Acetaminophen [Hydrocodon-Acetaminophn 10-325] 1 each PO Q6H PRN 08/12/17 Omeprazole [Prilosec] 40 mg PO BID 08/12/17 Rivaroxaban [Xarelto*] 20 mg PO DAILY 08/12/17 predniSONE [Deltasone*] 10 mg PO DAILY 08/12/17 Amitriptyline [Elavil] 50 mg PO BID 10/31/17 Diltiazem HCl [Cartia Xt] 240 mg PO DAILY 10/31/17 Pirfenidone [Esbriet] 3 cap PO SEECOM 10/31/17 Propafenone HCl [Propafenone HCl ER] 325 mg PO BID 10/31/17 Ibandronate Sodium [Boniva] 150 mg PO SEECOM 11/01/17 - Past Medical/Surgical History Diabetic: No -: Rheumatoid Arthritis -: Interstitial Lung Disease -: Sleep Apnea -: [place] -: osteopenia -: High Cholesterol -: COPD -: Afib -: Bronchiectis -: Hiatal Hernia -: GERD -: depression -: Tonsilectomy -: Appendectomy, Kelle -: Hysterectomy -: Multiple ganglion cyst removal -: Knee Replacement rohini -: Tendon repair bilateral wrist -: Knuckle removal in toes on R foot/hands -: Multiple bursectomy excision - Family History Sister Medical History: Hypertension, Lung disease, Other (see notes) Notes: rotoscoliasis, sleep apnea, hyperlipidemia Brother Medical History: Hypertension, Diabetes, Other (see notes) Notes: gout, hyperlipidemia Mother Medical History: Hypertension, Cancer Notes: klatskin tumor Father Medical History: Heart disease, Hypertension, Lung disease, Diabetes, Cancer, Other (see notes) Notes: lung cancer, gout - Social History Smoking Status: Unknown if ever smoked Alcohol use: Yes CD- Drugs: No Caffeine use: Yes Place of Residence: Home Review of Systems 10-point ROS is otherwise unremarkable General: Weakness Respiratory: Cough, Shortness of Breath Physical Examination Temp Pulse Resp BP Pulse Ox 97.2 F 84 20 152/84 H 96 11/01/17 16:00 11/01/17 16:00 11/01/17 16:00 11/01/17 16:00 11/01/17 16:00 General: Alert, Oriented x3, Cachectic HEENT: Other Respiratory: Expiratory wheezes Cardiovascular: Regular rate/rhythm (2+ edema), Edema Gastrointestinal: Normal bowel sounds, Soft and benign Laboratory Data (last 24 hrs) 10/31/17 19:00: PT 21.5 H, INR 1.81 10/31/17 19:00: WBC 8.9, Hgb 12.1, Hct 36.6, Plt Count 215 10/31/17 19:00: Sodium 139, Potassium 3.0 L, BUN 7, Creatinine 0.80, Glucose 129 H, Magnesium 1.7 L, Total Bilirubin 0.3, AST 15, ALT 13, Alkaline Phosphatase 85 - Problems (1) Abnormal CT scan Current Visit: Yes Status: Acute Plan: Patient is 67 years of age admitted with worsening cough congestion possible COPD exacerbation in addition she has a right upper lobe mass with hilar adenopathy mildly suspicious for lung cancer the chest x-ray done on July this year did not show a mass indeed she had a CT scan done a year ago did not show any lung mass at that time family members informed labs are unremarkable Patient is on Xarelto of discuss with family members will plan to schedule her for a bronchoscopy on Monday as an outpatient discussed with the patient risk of bronchoscopy include bleeding infection and lung collapse and she agrees patient to hold her Xarelto she is currently in normal sinus rhythm has had atrial ablation patient change to levofloxacin patient takes prednisone 10 mg daily increase dose to 10 twice a day patient also has pulmonary fibrosis is on is an antipsychotic medication
[2017-11-01] MEDS: IPRATROPIUM BROM 0.5MG/2.5ML NEB SCH (20:08)
[2017-11-01] MEDS: predniSONE 20 MG TAB PO SCH (21:56)
[2017-11-01] MEDS: CLONIDINE 0.2 MG TABLET PO SCH (21:59)
[2017-11-01] MEDS: CLINDAMYCIN HCL 150 MG CAP PO SCH (22:18)
[2017-11-01] MEDS ORDERED: SULFASALAZINE 500 MG E.C. TAB PO ONE (23:52)
[2017-11-02] MEDS ORDERED: HYDRALAZINE HCL 20 MG/ML VIAL IV ONE (01:09)
[2017-11-02] MEDS: IPRATROPIUM BROM 0.5MG/2.5ML NEB SCH ×3 (02:00→13:28)
[2017-11-02] MEDS: CLINDAMYCIN HCL 150 MG CAP PO SCH (05:57)
[2017-11-02 06:05] LABS: Absolute Lymphocytes (CBC) 0.6 K/uL (0.7-4.9); Absolute Monocytes 0.5 K/uL (0.1-1.3); Absolute Neutrophil 10.2 K/uL (1.8-8.0); Basophils % 0.1 % (0-1.3); Hematocrit 32.6 % (36.0-45.0); Lymphocytes % 5.2 % (15.3-44.8); MCH 27.1 pg (27.0-35.0); MCV 83.1 fL (80-100); MPV 8.1 fL (7.6-11.3); Monocytes % 4.1 % (3.3-12.3); RBC Red Blood Cell Count 3.92 M/uL (3.86-4.86)
[2017-11-02] MEDS: CLONIDINE 0.2 MG TABLET PO SCH (06:09)
[2017-11-02 06:29] LABS: Potassium 5.2 mmol/L (3.5-5.1)
[2017-11-02 06:43] LABS: Blood Morphology Comment NOT SEEN (NOT SEEN); Platelet Estimate ADEQ
[2017-11-02] MEDS: TRAMADOL HCL 50 MG TAB PO PRN (07:13)
[2017-11-02] MEDS ORDERED: PANTOPRAZOLE 40MG TABLET PO SCH (07:30)
[2017-11-02] MEDS: ARFORMOTEROL TARTRATE 15 MCG/2 ML VIAL.NEB NEB SCH (07:53)
[2017-11-02 08:36] VITALS: BP 127/73; TEMP 97
[2017-11-02] MEDS: ENOXAPARIN 100 MG/ML SYR SQ SCH (08:40)
[2017-11-02] MEDS: predniSONE 20 MG TAB PO SCH (08:41)
[2017-11-02] MEDS: OMEPRAZOLE 40 MG CAPSULE PO SCH (08:42)
[2017-11-02] MEDS: CARTIA XT 240 MG PO SCH (08:43)
[2017-11-02] MEDS: AMITRIPTYLINE 50 MG TABLET PO SCH (08:44)
[2017-11-02] MEDS: PROPAFENONE HCL 325 MG PO SCH (08:45)
[2017-11-02] MEDS: DULOXETINE DR 60 MG CAPSULE PO SCH (08:46)
[2017-11-02] MEDS: LEFLUNOMIDE 20 MG PO SCH (08:46)
[2017-11-02] MEDS: MOMETASONE FUROATE NS SCH (08:50)
--- NOTE | 2017-11-02 11:15 | P.DS ---
Admission Date: 10/31/17 Discharge Date: 11/02/17 Primary Care Provider: Dr. Patel; Pulmonary-Dr. Grier([facility]) Disposition: [place] HOME/HOME HEALTH CARE Discharge Condition: GOOD Reason for Admission: COPD exacerbation Consultations: Pulmonary-Dr. Calvo Procedures: CT scan: FINDINGS: The evaluation of mediastinum, reuben and vessels is limited secondary to lack of IV contrast administration. A 5.5 centimeter opacity is present within the medial right upper lobe. Moderate bilateral subpleural interstitial opacities have the appearance pulmonary fibrosis. Anterior and middle mediastinal lymph nodes are present measuring up to 2.4 centimeters. Mild right hilar lymphadenopathy is suspected. A minimal right pleural effusion is present IMPRESSION: 5.5 centimeter opacity within the medial right upper lobe probably representing neoplasm, less likely pneumonia. Bronchoscopy is recommended Mediastinal lymphadenopathy. Probable mild right hilar lymphadenopathy. This likely represents neoplastic involvement - Problems (1) COPD (chronic obstructive pulmonary disease) Current Visit: Yes Status: Acute Qualifiers: COPD type: COPD with acute exacerbation Qualified Code(s): J44.1 - Chronic obstructive pulmonary disease with (acute) exacerbation (2) Abnormal CT scan Current Visit: Yes Status: Acute (3) Lung cancer Current Visit: Yes Status: Suspected Qualifiers: Laterality: right Lung location: upper lobe of lung Qualified Code(s): C34.11 - Malignant neoplasm of upper lobe, right bronchus or lung (4) Lymphadenopathy Current Visit: Yes Status: Acute (5) Atrial fibrillation Current Visit: Yes Status: Chronic Qualifiers: Atrial fibrillation type: chronic Qualified Code(s): I48.2 - Chronic atrial fibrillation (6) Chronic anticoagulation Current Visit: Yes Status: Chronic (7) Chronic pain Current Visit: No Status: Chronic Qualifiers: Chronic pain type: chronic pain syndrome (8) Chronic steroid use Current Visit: No Status: Chronic (9) Gastroesophageal reflux disease Onset Date: 10/21/16 Current Visit: No Status: Chronic Qualifiers: Esophagitis presence: with esophagitis Qualified Code(s): K21.0 - Gastro- esophageal reflux disease with esophagitis (10) Hypertension Onset Date: 10/21/16 Current Visit: No Status: Chronic Qualifiers: Hypertension type: essential hypertension (11) Pulmonary fibrosis Onset Date: 10/21/16 Current Visit: No Status: Chronic (12) Rheumatoid arthritis Onset Date: 10/21/16 Current Visit: No Status: Chronic Qualifiers: Rheumatoid arthritis location: unspecified site Rheumatoid factor presence : unspecified presence Qualified Code(s): M06.9 - Rheumatoid arthritis, unspecified (13) Obesity Current Visit: Yes Status: Chronic Qualifiers: Obesity type: due to excess calories Obesity classification: adult class 2 (BMI 35 - 39.9) Serious obesity comorbidity presence: with serious comorbidity Body mass index: BMI 37.0-37.9 Qualified Code(s): E66.01 - Morbid (severe) obesity due to excess calories; Z68.37 - Body mass index (BMI) 37.0-37.9, adult (14) Pneumonia Onset Date: 11/01/17 Current Visit: Yes Status: Acute Qualifiers: Pneumonia type: due to unspecified organism Laterality: right Lung location: lower lobe of lung Qualified Code(s): J18.1 - Lobar pneumonia, unspecified organism Brief History of Present Illness: 67-year-old female presented to emergency room with increasing cough, shortness of breath. Patient with history of COPD. Patient was evaluated in the emergency room. She was found to have COPD exacerbation. CT scan also revealed a right upper lobe mass. Patient was admitted for further evaluation. Hospital Course: During the course of her stay patient was evaluated for cough, shortness of breath and congestion. Patient found to have possible right upper lobe pneumonia with suspicious CT findings of possible mass. CT scan revealed 5.5 cm opacity within the right medial upper lobe. Mediastinal lymphadenopathy and mild right hilar at lymphadenopathy also noted. This is suspicious for neoplasm with metastatic involvement. Patient was evaluated by pulmonology. Previous CT scan from July did not show this. Pulmonology recommends bronchoscopy to further evaluate. At discharge patient will be treated for her COPD exacerbation with prednisone 20 mg 1 pill twice daily for 5 days then 1 pill once daily for 5 days. After that she may continue with prednisone 10 mg daily as takes chronic steroids for her COPD. Patient has home oxygen. She is to maintain sats above 90%. Patient will continue with her COPD medication- Brovana 1 unit dose twice daily and Atrovent 1 unit dose 3 times a day as needed for shortness of breath. Further adjustment can be done by her dietary tech. Patient is scheduled for bronchoscopy on Monday. Patient will also continue with Bactrim DS 1 pill twice daily for 7 days. Pulmonology recommends to hold Xarelto at this time in preparation for bronchoscopy to be arranged next Monday. Patient has history of atrial fibrillation. Currently with normal sinus rhythm. Patient has hypertension. She will continue with her medication-clonidine 0.2 mg 1 pill twice daily and diltiazem 240 mg daily. Recommendation is to maintain blood pressures less 150/80. Further adjustment can be done by her PCP. Patient has GERD. She will continue with Prilosec 40 mg 1 pill twice daily. Patient is a history of atrial fibrillation on chronic anti coagulation therapy. As recommended above she will hold her Xarelto 20 mg daily until next Monday when bronchoscopy is planned. After Monday she can restart her medication. Patient will continue with Propafenone 325 mg one pill twice daily. Patient has chronic pain. She will continue with her pain medication including hydrocodone, Cymbalta, Elavil. Patient has rheumatoid arthritis. She will continue with her medication-Arava. Patient has pulmonary fibrosis. She will continue with her medication Esbriet. Further adjustment can be done by pulmonology. Vital Signs/Physical Exam: Temp Pulse Resp BP Pulse Ox 97.0 F 74 20 127/73 100 11/02/17 08:00 11/02/17 08:00 11/02/17 08:00 11/02/17 08:00 11/02/17 08:00 General: Alert, In no apparent distress, Oriented x3, Cooperative HEENT: Atraumatic Neck: Supple Respiratory: Expiratory wheezes (Bilateral but improved) Cardiovascular: Normal pulses, Regular rate/rhythm Gastrointestinal: Normal bowel sounds, Soft and benign, Non-distended, No tenderness, No masses, No rebound, No guarding Musculoskeletal: No erythema, No tenderness, No warmth Integumentary: No tenderness/swelling, No erythema, No warmth, No cyanosis Neurological: Normal speech, Normal strength at 5/5 x4 extr, Normal tone, Normal affect Laboratory Data at Discharge: WBC 11.3 K/uL (4.3-10.9) H D 11/02/17 05:15 Hgb 10.6 g/dL (12.0-15.0) L 11/02/17 05:15 Hct 32.6 % (36.0-45.0) L 11/02/17 05:15 Plt Count 220 K/uL (152-406) 11/02/17 05:15 PT 21.5 SECONDS (9.5-12.5) H 10/31/17 19:00 INR 1.81 10/31/17 19:00 Sodium 140 mmol/L (136-145) 11/02/17 05:15 Potassium 4.5 mmol/L (3.5-5.1) 11/02/17 07:08 BUN 10 mg/dL (7-18) 11/02/17 05:15 Creatinine 0.70 mg/dL (0.55-1.3) 11/02/17 05:15 Glucose 148 mg/dL (74-106) H 11/02/17 05:15 Magnesium 2.0 mg/dL (1.8-2.4) 11/02/17 05:15 Total Bilirubin 0.3 mg/dL (0.2-1.0) 10/31/17 19:00 AST 15 U/L (15-37) 10/31/17 19:00 ALT 13 U/L (12-78) 10/31/17 19:00 Alkaline Phosphatase 85 U/L (45-117) 10/31/17 19:00 Home Medications: Sulfasalazine [Sulfazine] 2 tab PO BID 09/10/11 Leflunomide [Arava] 20 mg PO DAILY #30 11/27/16 Mometasone Furoate [Nasonex] 2 spr NS DAILY #1 11/27/16 cloNIDine HCl [Clonidine HCl] 0.2 mg PO BID #60 11/27/16 Duloxetine [Cymbalta *] 60 mg PO DAILY 06/17/17 Ipratropium Mdi [Atrovent Hf Inhaler*] 1 puff IH BID 06/17/17 Budesonide [Pulmicort*] 2 puff IH BID PRN 08/12/17 Hydrocodone Bit/Acetaminophen [Hydrocodon-Acetaminophn 10-325] 1 each PO Q6H PRN 08/12/17 Omeprazole [Prilosec] 40 mg PO BID 08/12/17 Rivaroxaban [Xarelto*] 20 mg PO DAILY 08/12/17 predniSONE [Deltasone*] 10 mg PO DAILY 08/12/17 Amitriptyline [Elavil*] 50 mg PO BID 10/31/17 Diltiazem HCl [Cartia Xt] 240 mg PO DAILY 10/31/17 Pirfenidone [Esbriet] 3 cap PO SEECOM 10/31/17 Propafenone HCl [Propafenone HCl ER] 325 mg PO BID 10/31/17 Ibandronate Sodium [Boniva] 150 mg PO SEECOM 11/01/17 Arformoterol Tartrate [Brovana] 2 ml IH BID #60 vial.neb 11/02/17 Benzonatate [Tessalon Perle*] 200 mg PO TID PRN #15 cap 11/02/17 Smz./Tmp. [Bactrim Ds 800 MG/160 MG] 1 tab PO BID #14 tab 11/02/17 predniSONE [Prednisone*] 20 mg PO SEECOM #5 tab 11/02/17 New Medications: Arformoterol Tartrate [Brovana] 2 ml IH BID #60 vial.neb Benzonatate [Tessalon Perle*] 200 mg PO TID PRN #15 cap PRN Reason: Cough predniSONE [Prednisone*] 20 mg PO SEECOM #5 tab Smz./Tmp. [Bactrim Ds 800 MG/160 MG] 1 tab PO BID #14 tab Patient Discharge Instructions: 1. Patient will need to follow up the PCP in 1 week to follow up this hospitalization. 2. Patient presented with cough, shortness of breath and congestion. Patient found to have possible right upper lobe pneumonia with suspicious CT findings of possible mass. CT scan revealed 5.5 cm opacity within the right medial upper lobe. Mediastinal lymphadenopathy and mild right hilar at lymphadenopathy also noted. This is suspicious for neoplasm with metastatic involvement. Patient was evaluated by pulmonology. Previous CT scan from July did not show this. Pulmonology recommends bronchoscopy to further evaluate. At discharge patient will be treated for her COPD exacerbation with prednisone 20 mg 1 pill twice daily for 5 days then 1 pill once daily for 5 days. After that she may continue with prednisone 10 mg daily as takes chronic steroids for her COPD. Patient will continue with Bactrim DS 1 pill twice daily for 7 days. Patient has home oxygen. She is to maintain sats above 90%. Patient will continue with her COPD medication- Brovana 1 unit dose twice daily and Atrovent 1 unit dose 3 times a day as needed for shortness of breath. Further adjustment can be done by her dietary tech. Patient is scheduled for bronchoscopy on Monday. 3. Pulmonology recommends to hold Xarelto at this time in preparation for bronchoscopy to be arranged next Monday. Patient has history of atrial fibrillation. Currently with normal sinus rhythm. 4. Patient has hypertension. She will continue with her medication-clonidine 0.2 mg 1 pill twice daily and diltiazem 240 mg daily. Recommendation is to maintain blood pressures less 150/80. Further adjustment can be done by her PCP. 5. Patient has GERD. She will continue with Prilosec 40 mg 1 pill twice daily. 6. Patient is a history of atrial fibrillation on chronic anti coagulation therapy. As recommended above she will hold her Xarelto 20 mg daily until next Monday when bronchoscopy is planned. After Monday she can restart her medication. Patient will continue with Propafenone 325 mg one pill twice daily. 7. Patient has chronic pain. She will continue with her pain medication including hydrocodone, Cymbalta, Elavil. 8. Patient has rheumatoid arthritis. She will continue with her medication-Arava. 9. Patient has pulmonary fibrosis. She will continue with her medication Esbriet. Further adjustment can be done by pulmonology. Diet: AHA Activity: Fall precautions Time spent managing pt's care (in minutes): 55
[2017-11-02 12:06] VITALS: O2SAT 97
[2017-11-02] MEDS ORDERED: CLINDAMYCIN HCL 150 MG CAP PO SCH (20:00)
== END 2017-11-02 13:50 | disposition home or self-care (01) ==
LOC: ER 17:05 → ERHOLD 19:35 → 4TH 20:03
PROVIDERS: ADMIT Internal Medicine; ATTEND Family Medicine
DX: J44.1 Chronic obstructive pulmonary disease with (acute) exacerbation (principal); R91.8 Other nonspecific abnormal finding of lung field; R59.1 Generalized enlarged lymph nodes; I48.2 Chronic atrial fibrillation; Z79.01 Long term (current) use of anticoagulants; G89.4 Chronic pain syndrome; Z79.52 Long term (current) use of systemic steroids; K21.9 Gastro-esophageal reflux disease without esophagitis; I10 Essential (primary) hypertension; J84.10 Pulmonary fibrosis, unspecified; M06.9 Rheumatoid arthritis, unspecified; E66.01 Morbid (severe) obesity due to excess calories; Z68.37 Body mass index [BMI] 37.0-37.9, adult; J44.0 Chronic obstructive pulmonary disease with (acute) lower respiratory infection; J18.9 Pneumonia, unspecified organism; Z99.81 Dependence on supplemental oxygen
CPT/HCPCS: 36415 ×3; 71045; 71250; 80048 ×3; 80076; 81003; 83605; 83735 ×3; 83880; 84132; 84145; 84484; 85025 ×3; 85610; 87040 ×2; 93005; 94640; 94760 ×3; 96365; 96366; 99285; G0378 ×2; J0360; J0456 ×2; J1650 ×3; J2920 ×4; J3475; J7030; J7605 ×3; J7512

== ENCOUNTER 2017-11-07 06:52 | Day surgery (SDC) | payer OTHER ==
--- OUTSIDE RECORDS SUMMARY | 2017-11-07 06:57 | XMS REPORT | Clinical Summary ---
:1950 Author Organization [facility] Address [address] [place] [address] Care Team Providers Name Role Phone Caleb [...] complete ep study w ablation pulmonary vein [62151 (CPT)] 06/21/2017 Patient Outreach Quality Rachel Gunter 06/21/2017 Procedure Pass Procedural Cardiology 06/21/2017 Surgery Procedural Cardiology Kristopher Moreno MD Ep loop recorder insertion [15260 (CPT)] 06/21/2017 Procedure Pass Procedural Cardiology 06/21/2017 Surgery Procedural Cardiology Kristopher Moreno MD Ep complete ep study w ablation svt [58119 (CPT)] 06/19/2017 Anesthesia Event Procedural Cardiology Keke Perla 06/18/2017 - Hospital Encounter Cardiovascular Nicola, Atrial fibrillation 06/21/2017 MD Yanick with RVR (Primary Dx) after 11/06/2016 Family History Medical History Relation Name Comments [...] INFLUENZA VACCINE 10/25/2017 Implants Implanted Type Area Child Care Device Expiration Model / Identifier Date Serial / Lot Monitor Cardiac Implant Confirm Rx - [id number] Cardiac N/A: N/A [employer] [id number] / Implanted: 06/21/2017 (Quantity not on file) [...] CDT procedure are in the results section. ID AN ELECTIVE Routine 09/14/2017 9:28 ENDOTRACHEAL AIRWAY AM CDT Procedure Note - Vanna Garcia CRNA - 09/14/2017 9:28 AM CDT Airway Date/Time: 09/14/2017 8:59 AM Performed by: VANNA GARCIA Authorized by: CRISTINA JUAREZ Location: OR Urgency: Elective Difficult Airway: No Anesthesiologist: CRISTINA JUAREZ Resident/DIRECTOR OF RESERVATIONS/AA: CRISTINA JUAREZ Performed by: resident/KATE/AA Preoxygenated with [...] SPECTRAL COLOR DOPPLER procedure are in the (52406) results section. AST (SGOT) Routine 06/18/2017 7:15 [...] procedure are in the results section. after 11/06/2016 Results CBC with platelet and differential (09/15/2017 5:23 AM)Only the most recent of4 resultswithin the time period is included. WBC 6.03 4.50 - 11.00 k/uL [facility] DEPARTMENT OF PATHOLOGY AND GENOMIC MEDICINE RBC 3.57 (L) 4.20 - 5.50 m/uL [facility] DEPARTMENT OF PATHOLOGY AND GENOMIC MEDICINE HGB 9.8 (L) 12.0 - 16.0 g/dL [facility] DEPARTMENT OF PATHOLOGY AND GENOMIC MEDICINE HCT 32.8 (L) 37.0 - 47.0 % [facility] DEPARTMENT OF PATHOLOGY AND GENOMIC MEDICINE MCV 91.9 82.0 - 100.0 fL [facility] DEPARTMENT OF PATHOLOGY AND GENOMIC MEDICINE MCH 27.5 27.0 - 34.0 pg [facility] DEPARTMENT OF PATHOLOGY AND GENOMIC MEDICINE MCHC 29.9 (L) 31.0 - 37.0 g/dL [facility] DEPARTMENT OF PATHOLOGY AND GENOMIC MEDICINE RDW - SD 58.4 (H) 37.0 - 55.0 fL [facility] DEPARTMENT OF PATHOLOGY AND GENOMIC MEDICINE MPV 10.0 8.8 - 13.2 fL [facility] DEPARTMENT OF PATHOLOGY AND GENOMIC MEDICINE Platelet count 169 150 - 400 k/uL [facility] DEPARTMENT OF PATHOLOGY AND GENOMIC MEDICINE Nucleated RBC 0.00 /100 WBC [facility] DEPARTMENT OF PATHOLOGY AND GENOMIC MEDICINE Neutrophils 67.1 39.0 - 69.0 % [facility] DEPARTMENT OF PATHOLOGY AND GENOMIC MEDICINE Lymphocytes 21.1 (L) 25.0 - 45.0 % [facility] DEPARTMENT OF PATHOLOGY AND GENOMIC MEDICINE Monocytes 8.0 0.0 - 10.0 % [facility] DEPARTMENT OF PATHOLOGY AND GENOMIC MEDICINE Eosinophils 2.3 0.0 - 5.0 % [facility] DEPARTMENT OF PATHOLOGY AND GENOMIC MEDICINE Basophils 0.7 0.0 - 1.0 % [facility] DEPARTMENT OF PATHOLOGY AND GENOMIC MEDICINE Immature granulocytes 0.8Comment: 0.0 - 1.0 % [facility] DEPARTMENT OF "Immature PATHOLOGY AND GENOMIC granulocytes" MEDICINE (promyelocytes, myelocytes, metamyelocytes) Specimen Blood Performing Organization Address City/[facility] [place] Phone Number [facility] DEPARTMENT PATHOLOGY AND [address] [place] [address] [employer] MEDICINE Estimated GFR (09/15/2017 4:00 AM)Only the most recent of4 resultswithin the time period is included. GFR Non Af Amer 63 mL/min/1.73 m2 [facility] DEPARTMENT OF PATHOLOGY AND GENOMIC MEDICINE GFR Af Amer 76 mL/min/1.73 m2 [facility] DEPARTMENT OF Comment: PATHOLOGY AND GENOMIC Chronic [...] Americans. Specimen Plasma specimen Performing Organization Address City/[facility]/Zipcode Phone Number [facility] PATHOLOGY AND [address] [place] [address] [facility] Basic metabolic panel (09/15/2017 4:00 AM)Only the most recent of3 resultswithin the time period is included. Sodium 135 135 - 148 mEq/L [facility] DEPARTMENT OF PATHOLOGY AND GENOMIC MEDICINE Potassium 3.8 3.5 - 5.0 mEq/L [facility] DEPARTMENT OF PATHOLOGY AND GENOMIC MEDICINE Chloride 97 (L) 98 - 112 mEq/L [facility] DEPARTMENT OF PATHOLOGY AND GENOMIC MEDICINE CO2 25 24 - 31 mEq/L [facility] DEPARTMENT OF PATHOLOGY AND GENOMIC MEDICINE Anion gap 13@ANIO 7 - 15 mEq/L [facility] DEPARTMENT OF PATHOLOGY AND GENOMIC MEDICINE BUN 15 8 - 23 mg/dL [facility] DEPARTMENT OF PATHOLOGY AND GENOMIC MEDICINE Creatinine 0.9 0.5 - 0.9 mg/dL [facility] DEPARTMENT OF PATHOLOGY AND GENOMIC MEDICINE Glucose 110 (H) 65 - 99 mg/dL [facility] DEPARTMENT OF PATHOLOGY AND GENOMIC MEDICINE Calcium 8.6 (L) 8.8 - 10.2 mg/dL [facility] DEPARTMENT OF PATHOLOGY AND GENOMIC MEDICINE Specimen Plasma specimen Performing Organization Address City/State/Zipcode Phone Number [facility] DEPARTMENT OF PATHOLOGY AND [address] [place] [address] GENOMIC MEDICINE Cv electrophysiology procedure (09/14/2017 1:17 [...] Performed At DATE OF OPERATION: 09/14/2017 CUPID CHIEF OF VITAL STATISTICS: Kristopher Moreno MD PREOPERATIVE DIAGNOSES: -Paroxysmal atrial [...] large curl Agilis sheath, through which a Operative Mediauch SF catheter, DF curve was advanced to [...] 350 sec, transseptal puncture was performed with [place] long needle (requiring RF) using ICE guidance. [...] HV interval was measured at 59msec and CE=[id number]. Post-procedure ICE showed no pericardial effusion.At this time, GA was stopped and patient was extubated; No immediate complications. Protamine was given at the end of the procedure.Sheaths were pulled in the lab and patient was transferred to the PACU in a stable condition. Performing Organization Address [facility] [place] Phone Number [facility] [address] [place] [address] Sodium level, syringe (09/14/2017 12:50 PM) Sodium, syringe 136 135 - 148 mEq/L [facility] DEPARTMENT OF PATHOLOGY AND GENOMIC MEDICINE Specimen Blood Performing Organization Address [facility] [place] Phone Number [facility] DEPARTMENT OF PATHOLOGY AND [address] [place] [address] [facility] Potassium, syringe (09/14/2017 12:50 PM) Potassium, syringe 4.1 3.5 - 5.0 mEq/L [facility] DEPARTMENT OF PATHOLOGY AND GENOMIC MEDICINE Specimen Blood Performing Organization Address [facility] Phone Number [facility] DEPARTMENT OF PATHOLOGY AND [address] [place] [phone] [facility] Ionized calcium, arterial (09/14/2017 12:50 PM) Ionized calcium, arterial 1.04 (L) 1.11 - 1.32 mmol/L [facility] DEPARTMENT OF PATHOLOGY AND GENOMIC MEDICINE Specimen Blood Performing Organization Address [facility] [place] Phone Number [facility] DEPARTMENT OF PATHOLOGY AND [address] [place] [address] Hemoglobin, syringe (09/14/2017 12:50 PM) Hemoglobin, syringe 10.5 (L) 12.0 - 16.0 g/dL [facility] DEPARTMENT OF PATHOLOGY AND GENOMIC MEDICINE Specimen Blood Performing Organization Address [facility] [place] Phone Number [facility] DEPARTMENT OF PATHOLOGY AND [address] [place] [address] Glucose level, syringe (09/14/2017 12:50 PM) Glucose, syringe 167 (H) 65 - 99 mg/dL [facility] DEPARTMENT OF PATHOLOGY AND GENOMIC MEDICINE Specimen Blood Performing Organization Address [facility] Phone Number [facility] DEPARTMENT OF PATHOLOGY AND [address] [place] [address] Arterial blood gas, corrected (09/14/2017 12:50 PM) pH, arterial 7.34 (L) 7.35 - 7.45 [facility] DEPARTMENT OF PATHOLOGY AND GENOMIC MEDICINE pCO2, arterial 44 35 - 45 mmHg [facility] DEPARTMENT OF PATHOLOGY AND GENOMIC MEDICINE pO2, arterial 356 (H) 80 - 90 mmHg [facility] DEPARTMENT OF PATHOLOGY AND GENOMIC MEDICINE Temperature, Celsius 36.5 Degrees C [facility] DEPARTMENT OF PATHOLOGY AND GENOMIC MEDICINE O2 saturation, arterial 99 95 - 100 % [facility] DEPARTMENT OF PATHOLOGY AND GENOMIC MEDICINE pH, arterial corrected 7.35 [facility] DEPARTMENT OF PATHOLOGY AND GENOMIC MEDICINE pCO2, arterial corrected 43 mmHg [facility] DEPARTMENT OF PATHOLOGY AND GENOMIC MEDICINE pO2, arterial corrected 354 mmHg [facility] DEPARTMENT OF PATHOLOGY AND GENOMIC MEDICINE Base excess, arterial -2 -2 - 2 mEq/L [facility] DEPARTMENT OF PATHOLOGY AND GENOMIC MEDICINE Specimen Blood Performing Organization Address [facility] Phone Number [facility] DEPARTMENT OF PATHOLOGY AND [address] [place] [address] Activated clotting time (09/14/2017 12:44 PM)Only the most recent of7 resultswithin the time period is included. Activated clotting time 129 96 - 152 sec [facility] DEPARTMENT OF Comment: PATHOLOGY AND GENOMIC Meter ID: [id number] MEDICINE Woods Rider ID: Larry Evans Performing Organization Address City/[facility] Phone Number [facility] DEPARTMENT OF PATHOLOGY AND [address] [place] [address] GENOMIC MEDICINE ECG Pre/Post Op (09/14/2017 6:49 [...] BPM-T wave inversion no longer [facility] MUSE evident in Anterolateral leads- Performing Organization Address City/State/Zipcode Phone Number [facility] MUSE [address] [place] [address] Cv electrophysiology procedure (06/21/2017 9:15 AM) Impressions [...] DATE OF OPERATION: June 21, 2017 CUPID CHIEF OF VITAL STATISTICS: Kristopher Moreno MD PREOPERATIVE DIAGNOSES: -Typical atrial [...] long 7-Fr, long 9-Fr, and a short 8-Syrian sheath) using modified Seldinger technique.An ICE catheter sound was advanced to the RA RV junction.A baseline eye study showed normal ejection fraction and no pericardial effusion.The CTI line, His position,CS os were all marked on the Sound map.Following this the 8-Syrian sheath was upgraded to a medium curl [...] indicating block across the line.Trans block conduction [id number] and bidirectional block was confirmed.Power of 30-40 [...] with medical adhesive (Prineo) ILR: Confirm Rx [id number]; [id number]. Performing Organization Address [facility] Phone Number [facility] [address] [place] [address] Type and screen (06/20/2017 5:50 PM) ABO grouping O [facility] DEPARTMENT OF PATHOLOGY AND GENOMIC MEDICINE Rh type POS [facility] DEPARTMENT OF PATHOLOGY AND GENOMIC MEDICINE Antibody screen (gel) NEG [facility] DEPARTMENT OF PATHOLOGY AND GENOMIC MEDICINE Specimen Blood Performing Organization Address [facility] Phone Number [facility] DEPARTMENT OF PATHOLOGY AND [address] [place] [address] MEDICINE Magnesium level (06/19/2017 4:00 AM)Only the most recent of2 resultswithin the time period is included. Magnesium 1.7 1.6 - 2.4 mg/dL [facility] DEPARTMENT OF PATHOLOGY AND GENOMIC MEDICINE Specimen Plasma specimen Performing Organization Address [facility] Phone Number [facility] DEPARTMENT OF PATHOLOGY AND [address] [place] [address] MEDICINE Echocardiogram complete w contrast and 3D if needed (06/18/2017 10:22 PM) Narrative Performed At [facility] Echocardiography Report [address] [facility] [place] [address] Pat.Name:CHRISTINA SANTACRUZ AMY Alvarez.ID:[id number] .Date: 06/18/2017 Refer.:YANICK STANLEY MD Exam Time: 9:42:00 PMStudy Type:Routine Echo Height:67inWeight: 234lb BSA: 2.16 m2 DOBAge:1950,66Y Sex: FEMALEBP:149/71 HR:68 bpmSonogrphr: Ishaan King RDCS Pat. Stat.:Inpatient Room:[facility] Study Status:Final Echo Event ID:[id number] Order ID:[id number] Reason for Study:Arrhythmias - Sustained or nonsustained [...] detected by Doppler. MEASUREMENTS: 2D Parasternal [place] LVOT 2.1 cmLA Ds3.9 cm LVIDd4.5 cmIndex2.1 cm/m Ao An2.4 cm LVIDs3 cmAo Rtd 3.1 cm Index1.4 cm/m LV%fs 33.3 % LV Pqni258.9 g(87-129) IVSd 1 cmRWT0.4 LVPWd0.9 cm LA Sng Plane LA Area 11.1 cm2(8.8-23.4) LA Vol22.8 ml Index10.5 ml/m LA LngAx 4.8 cm DOPPLER LVOT Stroke Vol LVOT 2.1 cmLVOT SV 70.2 ml LVOT TVI20.3 cmLVOT CO4.8 l/min LVOT Tm301 sypxWL79 bpm Signed 06/19/2017 09:18 AM Sylvain Fuentes M.D. Procedure Note Interface, Radiology Results In - 06/19/2017 9:18 AM CDT Echocardiography Report [address] [place] [address] Pat.Name: CHRISTINA SANTACRUZ AMY Pat.ID: [id number] .Date: 06/18/2017 Refer.MD: YANICK STANLEY MD Exam Time: 9:42:00 PM Study Type:Routine Echo Height: 67in Weight: 234lb BSA: 2.16 m2 Age: 6 1950,66Y Sex: FEMALE BP: 149/71 HR: 68 bpm Sonogrphr: Ishaan King RDCS Pat. Stat.:Inpatient Room: [facility] Study Status:Final Echo Event ID:[id number] Order ID: [id number] Reason for Study:Arrhythmias - Sustained or nonsustained [...] detected by Doppler. MEASUREMENTS: 2D Parasternal [place] LVOT 2.1 cm LA Ds 3.9 cm [...] Performing Organization Address City/State/Zipcode Phone Number [facility] [address] [place] [address] ALT (SGPT) (06/18/2017 7:15 AM) ALT 16 5 - 50 U/L [facility] DEPARTMENT OF PATHOLOGY AND GENOMIC MEDICINE Specimen Plasma specimen Performing Organization Address [facility] Phone Number [facility] DEPARTMENT OF PATHOLOGY AND [address] [place] [address] AST (SGOT) (06/18/2017 7:15 AM) AST 28 10 - 35 U/L [facility] DEPARTMENT OF PATHOLOGY AND GENOMIC MEDICINE Specimen Plasma specimen Performing Organization Address [facility] Phone Number [facility] DEPARTMENT OF PATHOLOGY AND [address] [place] [address] Potassium level (06/18/2017 7:15 AM) Potassium 3.3 (L) 3.5 - 5.0 mEq/L [facility] DEPARTMENT OF PATHOLOGY AND GENOMIC MEDICINE Specimen Plasma specimen Performing Organization Address [facility] Phone Number [facility] DEPARTMENT OF PATHOLOGY AND [address] [place] [address] Thyroid stimulating hormone (06/18/2017 4:00 AM) TSH 5.44 (H) 0.27 - 4.20 uIU/mL [facility] DEPARTMENT OF PATHOLOGY AND GENOMIC MEDICINE Specimen Plasma specimen Performing Organization Address [facility] Phone Number [facility] DEPARTMENT OF PATHOLOGY AND [address] [place] [address] T4, free (06/18/2017 4:00 AM) T4, free 1.1 0.9 - 1.7 ng/dL [facility] DEPARTMENT OF PATHOLOGY AND GENOMIC MEDICINE Specimen Plasma specimen Performing Organization Address [facility] Phone Number [facility] DEPARTMENT OF PATHOLOGY AND [address] [place] [address] Comprehensive metabolic panel (06/18/2017 4:00 AM) Sodium 137 135 - 148 mEq/L [facility] DEPARTMENT OF PATHOLOGY AND GENOMIC MEDICINE Potassium SEE COMMENT 3.5 - 5.0 mEq/L [facility] DEPARTMENT OF Comment: PATHOLOGY AND GENOMIC Footnote--------- MEDICINE Unable to perform testing, specimen is hemolyzed.Recollect requested for K AST ALT.Lorelei Díaz/DDulceW notified by BB at06/18/201705:27.Credit issued. Chloride 96 (L) 98 - 112 mEq/L [facility] DEPARTMENT OF PATHOLOGY AND GENOMIC MEDICINE CO2 28 24 - 31 mEq/L [facility] DEPARTMENT OF PATHOLOGY AND GENOMIC MEDICINE Anion gap 13 7 - 15 mEq/L [facility] DEPARTMENT OF Comment: PATHOLOGY AND GENOMIC Starting from June , anion gap calculation MEDICINE no longer incorporates potassium. Please note the change. BUN 15 8 - 23 mg/dL [facility] DEPARTMENT OF PATHOLOGY AND GENOMIC MEDICINE Creatinine 0.7 0.5 - 0.9 mg/dL [facility] DEPARTMENT OF PATHOLOGY AND GENOMIC MEDICINE Glucose 89 65 - 99 mg/dL [facility] DEPARTMENT OF PATHOLOGY AND GENOMIC MEDICINE Calcium 9.3 8.8 - 10.2 mg/dL [facility] DEPARTMENT OF PATHOLOGY AND GENOMIC MEDICINE Protein 7.4 6.3 - 8.3 g/dL [facility] DEPARTMENT OF Comment: PATHOLOGY AND GENOMIC [place] 4.6-7.0 g/dL MEDICINE 1 week 4.4-7.6 g/dL 7 months-1year5.1-7.3 g/dL 1-2 years5.6-7.5 g/dL >3 years6.0-8.0 g/dL 18-150 6.3-8.3 g/dL Albumin 2.9 (L) 3.5 - 5.0 g/dL [facility] DEPARTMENT OF PATHOLOGY AND GENOMIC MEDICINE A/G ratio 0.6 (L) 0.7 - 3.8 [facility] DEPARTMENT OF PATHOLOGY AND GENOMIC MEDICINE Alkaline phosphatase 53 35 - 104 U/L [facility] DEPARTMENT OF PATHOLOGY AND GENOMIC MEDICINE AST SEE COMMENTComment: 10 - 35 U/L [facility] DEPARTMENT OF Footnote--------- PATHOLOGY AND GENOMIC MEDICINE ALT SEE COMMENTComment: 5 - 50 U/L [facility] DEPARTMENT OF Footnote--------- PATHOLOGY AND GENOMIC MEDICINE Total bilirubin 0.3 0.0 - 1.2 mg/dL [facility] DEPARTMENT OF PATHOLOGY AND GENOMIC MEDICINE Specimen Plasma specimen Performing Organization Address City/State/Zipcode Phone Number [facility] DEPARTMENT OF PATHOLOGY AND [address] [place] [address] GENOMIC MEDICINE after 11/06/2016 Insurance Payer Benefit Plan / Group Subscriber ID Type Phone Address MEDICARE MEDICARE PART A AND B xxxxxxxxxx Medicare [place], [place] COMMERCIAL MISC MISC COMMERCIAL xxxxxx-xx Commercial Home: [address] [place] [phone] [place] [phone]
--- OUTSIDE RECORDS SUMMARY | 2017-11-07 06:58 | XMS REPORT | Clinical Summary ---
:1950 Author Organization [facility] Address [address] [place] [address] Phone Care Team Providers Name Role Phone [...] 06/13/2017 Active (human) (PRIVIGEN) injection 45 g diphenhydrAMINE 25 [...] 45 gIndications: CIDP (chronic inflammatory demyelinating polyneuropathy) ([facility]) sodium chloride 0.9% IV Once 07/11/2017 07/11/2017 Ended (NS) infusionIndications: CIDP (chronic inflammatory demyelinating polyneuropathy) ([facility]) diphenhydrAMINE 25 MG IV Once 07/11/2017 07/11/2017 Ended (BENADRYL) injection 25 mgIndications: CIDP (chronic inflammatory demyelinating polyneuropathy) ([facility]) immune globulin 45 g IV Once 08/10/2017 08/10/2017 Ended (human) and maltose (OCTAGAM) injection 45 gIndications: CIDP (chronic inflammatory demyelinating polyneuropathy) ([facility]) sodium chloride 0.9% IV Once 08/10/2017 08/10/2017 Ended (NS) infusion diphenhydrAMINE 25 MG IV Once 08/10/2017 08/10/2017 Ended (BENADRYL) injection 25 mg immune globulin 45 g IV Once 09/12/2017 09/12/2017 Ended (human) and maltose (OCTAGAM) injection 45 gIndications: CIDP (chronic inflammatory demyelinating polyneuropathy) ([facility]) sodium chloride 0.9% IV Once 09/12/2017 09/12/2017 Ended (NS) infusion diphenhydrAMINE 25 MG IV Once 09/12/2017 09/12/2017 Ended (BENADRYL) injection 25 mg immune globulin 40 g IV Once 10/12/2017 10/12/2017 Ended (human) and maltose (OCTAGAM) injection 40 gIndications: CIDP (chronic inflammatory demyelinating polyneuropathy) ([facility]) sodium chloride 0.9% IV Once 10/12/2017 10/12/2017 Ended (NS) infusion diphenhydrAMINE 25 MG IV Once 10/12/2017 10/12/2017 Ended (BENADRYL) injection 25 mg Active Problems Problem Noted Date COPD (chronic obstructive pulmonary disease) ([facility]) 08/09/2013 Bronchiectasis ([facility]) 08/09/2013 Hypogammaglobulinemia ([facility]) 12/03/2012 CIDP (chronic inflammatory demyelinating polyneuropathy) ([facility]) 09/28/2012 Encounters Date Type Specialty Care Team Description 10/12/2017 Procedure visit Oncology Rian Olivera, CIDP (chronic inflammatory MD demyelinating polyneuropathy) Jin Morris ([facility]) MD Bekah Andrews Rachel L RN 09/12/2017 Procedure visit Oncology Rian Olivera, CIDP (chronic inflammatory MD demyelinating polyneuropathy) Jin Morris ([facility]) MD Syl Andrews Dana M, RN 08/10/2017 Procedure visit Oncology Rian Olivera, CIDP (chronic inflammatory MD demyelinating polyneuropathy) Jin Morris ([facility]) MD Kenney Andrews L R, RN 07/11/2017 Procedure visit Oncology Rian Olivera, CIDP (chronic inflammatory MD demyelinating polyneuropathy) Jin Morris ([facility]) (Primary Dx) MD Bakari Andrews Shalonda, RN 06/13/2017 Procedure visit Oncology Rian Olivera, Hypogammaglobulinemia ([facility]) (Primary Dx) Jin Morris MD Alexander, L R, RN 05/16/2017 Procedure visit Oncology Rian Olivera, Hypogammaglobulinemia ([facility]) (Primary Dx) Jin Morris MD Alexander, L R, MANJINDER 04/18/2017 Procedure visit Oncology Rian Olivera, CIDP (chronic inflammatory MD demyelinating polyneuropathy) Jin Morris ([facility]) (Primary Dx) MD Bakari Andrews Shalonda, RN 04/14/2017 Procedure visit Oncology Rian Olivera, Canceled (Patient) Jin Coppola MD 03/17/2017 Procedure visit Oncology Rian Olivera, CIDP (chronic inflammatory MD demyelinating polyneuropathy) Jin Morris ([facility]) (Primary Dx) MD Bekah Andrews Rachel L RN 02/15/2017 Procedure visit Oncology Rian Olivera, Hypogammaglobulinemia ([facility]) (Primary Dx) Jin Morris MD Raibon, Danielle L, RN 01/11/2017 Procedure visit Oncology Rian Olivera, Pulmonary emphysema, unspecified emphysema type Jin Morris ([facility]) (Primary Dx) MD Kenney Andrews L R RN 12/14/2016 Procedure visit Oncology Rian Olivera, CIDP (chronic inflammatory MD demyelinating polyneuropathy) Jin Morris ([facility]) MD Kenney Andrews L R, RN after 11/06/2016 Family History Medical History Relation [...] 172.7 cm (5' 8") 02/15/2017 11:00 AM [employer]ECTIVE [employer]NAL [employer]ER Body Mass Index 36.32 09/12/2017 10:50 AM [...] FOR DIALYSIS PATIENTS. Specimen Performing Laboratory Blood [facility] [address] [place] [address] BUN (07/11/2017 2:00 PM)Only the most recent of2 resultswithin the time period is included. Component Value Ref Range BUN 14 7 - 21 mg/dL Specimen Performing Laboratory Blood [address] [address] Creatinine (07/11/2017 2:00 PM)Only the most recent of2 resultswithin the time period is included. Component Value Ref Range Creatinine 0.78 0.57 - 1.25 mg/dL EGFR 74Comment: ESTIMATED GFR IS NOT ACCURATE mL/min/1.73 sq m CREATININE CLEARANCE IN PREDICTING GLOMERULAR FILTRATION RATE. ESTIMATED GFR IS NOT APPLICABLE FOR DIALYSIS PATIENTS. Specimen Performing Laboratory Blood [address] [address] after 11/06/2016
--- OUTSIDE RECORDS SUMMARY | 2017-11-07 06:58 | XMS REPORT ---
:1950 Author Organization [facility] Address [address] [place] [address] Care Team Providers Name Role Phone JENNIFER [...] UREA NITROGEN (BEAKER) 20 mg/dL 7-21 (test rrwe=979) CREATININE (BEAKER) (test 0.80 mg/dL 0.57-1.25 Specimen moderately deme=495) hemolyzed EGFR (BEAKER) (test 72 mL/min/1.73 sq m ESTIMATED GFR IS NOT pveq=2428) ACCURATE CREATININE CLEARANCE IN PREDICTING GLOMERULAR FILTRATION RATE. ESTIMATED GFR IS NOT APPLICABLE FOR DIALYSIS PATIENTS. [id number] 15:50:00 Test Item Value Reference Range Comments BLOOD UREA NITROGEN (BEAKER) (test ivct=142) 14 mg/dL 7-21 [id number] 15:50:00 Test Item Value Reference Range Comments CREATININE (BEAKER) (test 0.78 mg/dL 0.57-1.25 xsvs=082) EGFR (BEAKER) (test 74 mL/min/1.73 sq m ESTIMATED GFR IS NOT vyst=0771) ACCURATE CREATININE CLEARANCE IN PREDICTING GLOMERULAR FILTRATION RATE. ESTIMATED GFR IS NOT APPLICABLE FOR DIALYSIS PATIENTS. [id number] 14:55:00 Test Item Value Reference Range Comments BLOOD UREA NITROGEN (BEAKER) (test yqtg=192) 11 mg/dL 7-21 [id number] 14:55:00 Test Item Value Reference Range Comments CREATININE (BEAKER) (test 0.65 mg/dL 0.57-1.25 lywm=586) EGFR (BEAKER) (test 91 mL/min/1.73 sq m ESTIMATED GFR IS NOT kihe=3854) ACCURATE CREATININE CLEARANCE IN PREDICTING GLOMERULAR FILTRATION RATE. ESTIMATED GFR IS NOT APPLICABLE FOR DIALYSIS PATIENTS. BUN AND [id number] 15:59:00 Test Item Value Reference Range Comments BLOOD UREA NITROGEN 10 mg/dL 7-21 (BEAKER) (test cmbj=067) CREATININE (BEAKER) (test 0.65 mg/dL 0.57-1.25 svjv=598) EGFR (BEAKER) (test 91 mL/min/1.73 sq m ESTIMATED GFR IS NOT wobt=0225) ACCURATE CREATININE CLEARANCE IN PREDICTING GLOMERULAR FILTRATION RATE. ESTIMATED GFR IS NOT APPLICABLE FOR DIALYSIS PATIENTS. [id number] 14:45:00 Test Item Value Reference Range Comments BLOOD UREA NITROGEN (BEAKER) (test sled=460) 13 mg/dL 7-21 [id number] 14:45:00 Test Item Value Reference Range Comments CREATININE (BEAKER) (test 0.74 mg/dL 0.57-1.25 ytwi=054) EGFR (BEAKER) (test 79 mL/min/1.73 sq m ESTIMATED GFR IS NOT ouev=2656) ACCURATE CREATININE CLEARANCE IN PREDICTING GLOMERULAR FILTRATION RATE. ESTIMATED GFR IS NOT APPLICABLE FOR DIALYSIS PATIENTS. BUN AND [id number] 14:55:00 Test Item Value Reference Range Comments BLOOD UREA NITROGEN 13 mg/dL 7-21 (BEAKER) (test ramx=637) CREATININE (BEAKER) (test 0.69 mg/dL 0.57-1.25 jqkv=175) EGFR (BEAKER) (test 85 mL/min/1.73 sq m ESTIMATED GFR IS NOT uped=6989) ACCURATE CREATININE CLEARANCE IN PREDICTING GLOMERULAR FILTRATION RATE. ESTIMATED GFR IS NOT APPLICABLE FOR DIALYSIS PATIENTS. [id number] 17:24:00 Test Item Value Reference Range Comments BLOOD UREA NITROGEN (BEAKER) (test iikg=954) 12 mg/dL 7-21 [id number] 17:24:00 Test Item Value Reference Range Comments CREATININE (BEAKER) (test 0.67 mg/dL 0.57-1.25 smvo=854) EGFR (BEAKER) (test 89 mL/min/1.73 sq m ESTIMATED GFR IS NOT csgi=6590) ACCURATE CREATININE CLEARANCE IN PREDICTING GLOMERULAR FILTRATION RATE. ESTIMATED GFR IS NOT APPLICABLE FOR DIALYSIS PATIENTS.
[2017-11-07] MEDS ORDERED: Phenylephrine HCl 10 MG/ML 1 ML VIAL ONE ×2 (07:21)
[2017-11-07] MEDS ORDERED: LIDOCAINE 4% TOP SOLUTION ONE (07:22)
[2017-11-07] MEDS ORDERED: LIDOCAINE 1% MPF 5 ML VIAL ONE ×2 (07:23→08:00)
[2017-11-07] MEDS ORDERED: NA CHLORIDE 0.9% 1,000 ML ONE (07:26)
[2017-11-07] MEDS ORDERED: Ringers Lactate 1,000 ML IV ONE (07:28)
[2017-11-07] MEDS ORDERED: ALBUTEROL 2.5 MG/3 ML NEB SOL ONE (07:36)
[2017-11-07] MEDS ORDERED: PROPOFOL 200 MG/20 ML VIAL IV ONE (07:59)
[2017-11-07] MEDS ORDERED: MIDAZOLAM HCL 2 MG/2 ML INJ ONE (08:00)
--- NOTE | 2017-11-07 08:31 | P.OP ---
Date of Service: 11/07/17 (Bronchoscopy with biopsy of right upper lobe mass with a BAL) Findings and Operative Technique Patient is 67 years of age with a history of rheumatoid arthritis and COPD presented with a right upper lobe lung mass as a reason for bronchoscopy Narrative report after obtaining informed consent from bianka bhakta she was premedicated by anesthesia findings normal trachea normal vocal cords normal theo normal left-sided bronchial anatomy normal right-sided bronchial anatomy it may be some narrowing in the right upper lobe no obvious masses visible Multiple biopsies were obtained from the right upper lobe including a wire brush in a large Patient tolerated the procedure very well did not experience any hemodynamic compromise Multiple biopsies were taken from the right upper lobe anterior apical segment
--- NOTE | 2017-11-07 09:01 | RAD REPORT ---
EXAM DESCRIPTION: RAD - FLUORO-GUIDE FOR BRONCH UPT1HR - 11/07/2017 8:50 am FINDINGS: Fluoroscopic assisted bronchoscopic biopsy of right upper lung field mass performed. Detai l is limited on the 4 submitted images. No unexpected finding. Fluoro time was 5.8 minutes.
[2017-11-07 09:10] VITALS: TEMP 98; O2SAT 100
[2017-11-07 09:51] VITALS: BP 146/86
--- NOTE | 2017-11-07 10:08 | RAD REPORT ---
EXAM DESCRIPTION: RAD - Chest Single View - 11/07/2017 9:58 am CLINICAL HISTORY: Post bronchoscopy chest film COMPARISON: October 31 TECHNIQUE: AP portable chest image was obtained 0937 hours using expiration technique . FINDINGS: No pneumothorax identified. Heart, vasculature and lung markings are accentuated by body h abitus and expiration technique. Medial right upper lung mass has not changed. No pulmonary hemorrhag e identified. Cardiomediastinal silhouette is stable. IMPRESSION: No post bronchoscopy pneumothorax identifiable.
== END 2017-11-07 10:28 | disposition home or self-care (01) ==
LOC: OR 06:52
PROVIDERS: ATTEND Internal Medicine Sleep Medicine
PROC: 0BB48ZX Excision of Right Upper Lobe Bronchus, Via Natural or Artificial Opening Endoscopic, Diagnostic (ICD-10-PCS; 2017-11-07)
PROC: 0B9C8ZX Drainage of Right Upper Lung Lobe, Via Natural or Artificial Opening Endoscopic, Diagnostic (ICD-10-PCS; principal; 2017-11-07 08:00)
DX: R91.8 Other nonspecific abnormal finding of lung field (principal); J44.9 Chronic obstructive pulmonary disease, unspecified; M06.9 Rheumatoid arthritis, unspecified
CPT/HCPCS: 31624; 31625; 71045; 76000; 87015; 87102; 87116; 87206; 88108; 88305 ×2; J2370; J7030; J2250

== ENCOUNTER 2017-12-02 07:08 | Inpatient (IN) | payer OTHER ==
--- OUTSIDE RECORDS SUMMARY | 2017-12-02 07:11 | XMS REPORT | Clinical Summary ---
:1950 Author Organization [facility] Address [address] [place] [address] Care Team Providers Name Role Phone Caleb [...] mouth 2 (two) tablet times a day. magnesium chloride 64 [...] tablet times a day. 2am and 2pm etanercept (ENBREL) 25 Inject 25 mg Active mg (1 mL) injection under the skin. Patient take 25mg inj 2x/wk or 50mg inj once a wk propafenone (RYTHMOL) Take 225 mg by Active 225 MG tablet mouth every 8 (eight) hours. rivaroxaban (XARELTO) Take 20 mg by Active 20 mg tablet mouth daily. pirfenidone (ESBRIET) Take by mouth. Active 267 mg capsule HYDROcodone-acetaminoph Take by mouth Active en (ZAMCET) 10-325 every 6 (six) mg/15 mL(15 mL) hours as needed solution for moderate pain. hydrocodone/acetaminoph Take by mouth. Active en (VICODIN ORAL) diltiazem CD (CardIZEM Take 240 mg by Active CD) 240 MG 24 hr mouth daily. capsule ibandronate (BONIVA) Take 150 mg by Active 150 mg tablet mouth every 30 (thirty) days. Take in AM with glass of water prior to food, don't lie down for 30 minutes. amitriptyline (ELAVIL) Take 50 mg by Discontinued 50 MG tablet mouth 2 (two) 018 times a day. potassium chloride Take 20 mEq by Discontinued (K-DUR,KLOR-CON) 10 MEQ mouth 2 (two) 018 CR tablet times a day. aspirin (ECOTRIN) 81 MG Take 81 mg by Discontinued enteric coated tablet mouth daily. 018 acetaminophen-codeine Take 1 tablet by Discontinued (TYLENOL WITH CODEINE mouth 3 (three) 018 #3) 300-30 mg per times a day as tablet needed for moderate pain. umeclidinium-vilanterol Inhale nightly. Discontinued (ANORO ELLIPTA) 62.5-25 018 mcg/actuation blister with device diltiazem CD (CardIZEM Take 240 mg by Discontinued CD) 240 MG 24 hr mouth daily. 018 capsule pirfenidone 267 mg Take by mouth 3 Discontinued capsule (three) times a 018 day with meals. hydroCHLOROthiazide Take 25 mg by Discontinued (HYDRODIURIL) 25 MG mouth daily. 018 tablet propafenone SR (RYTHMOL Take 225 mg by Discontinued SR) 225 MG 12 hr mouth 3 (three) 018 capsule times a day. rivaroxaban (XARELTO) Take 1 tablet 30 tablet 0 06/22/ 20 mg tablet (20 mg total) by 18 018 mouth daily for 30 days. spironolactone Take 25 mg by Discontinued (ALDACTONE) 25 MG mouth daily. 018 tablet sucralfate (CARAFATE) 1 Take 1 tablet (1 [...] Encounters Date Type Specialty Care Team Description 11/28/2017 Telephone Cardiothoracic Surgery Yasemin Palomares NP 11/24/2017 Hospital Encounter Radiology Papo Torres MD 11/24/2017 Ancillary Orders Papo Mays MD 11/24/2017 Telephone Cardiothoracic Surgery Tesha Saleh MA 11/20/2017 Hospital Encounter Papo Mays Canceled (Luis Gibson MD Order Error) 11/20/2017 Hospital Encounter Paop Mays MD 11/20/2017 Office Visit Cardiothoracic Surgery Papo Torres Lung mass ( Primary MD Arthur Dx) 11/20/2017 Ancillary Orders Radiology Papo Torres MD 11/17/2017 Orders Only Cardiothoracic Surgery Provider, MD Patricia 09/14/2017 - Hospital Encounter Cardiology Kristopher Moreno MD PAF (paroxysmal 09/15/2017 atrial fibrillation) 09/14/2017 Anesthesia Event Procedural Cardiology Cristina Juarez MD 09/14/2017 Procedure Pass Procedural Cardiology 09/14/2017 Surgery Procedural Cardiology Kristopher Moreno MD Ep complete ep study w ablation pulmonary vein [02097 (CPT)] 06/21/2017 Patient Outreach Quality Rachel Gunter 06/21/2017 Procedure Pass Procedural Cardiology 06/21/2017 Surgery Procedural Cardiology Kristopher Moreno MD Ep loop recorder insertion [59651 (CPT)] 06/21/2017 Procedure Pass Procedural Cardiology 06/21/2017 Surgery Procedural Cardiology Kristopher Moreno MD Ep complete ep study w ablation svt [39247 (CPT)] 06/19/2017 Anesthesia Event Procedural Cardiology Minda Keke 06/18/2017 - Hospital Encounter Cardiovascular Nicola, Atrial fibrillation 06/21/2017 MD Yanick with RVR (Primary Dx) after 12/01/2016 Family History Medical History Relation Name Comments Arthritis Brother Diabetes Brother Hyperlipidemia Brother Arthritis Father Cancer Father Diabetes Father Hypertension Father Cancer Paternal Grandfather Cancer Paternal Grandmother Hyperlipidemia Sister Hypertension Sister Relation Name Status Comments Brother Alive Father Mother Paternal Grandfather Paternal Grandmother Sister Alive Social History Tobacco Use Types Packs/Day Years Used Date Former Smoker Cigarettes 0.6 20 Quit: 1992 Smokeless Tobacco: Never Used Alcohol Use Drinks/Week oz/Week Comments Yes 2x/year Sex Assigned at Date Recorded Not on file Last Filed Vital Signs Vital Sign Reading Time Taken Blood Pressure 138/74 11/20/2017 2:33 PM CDT Pulse 93 11/20/2017 2:33 PM CDT Temperature 35.8 C (96.5 F) 11/20/2017 2:33 PM CDT Respiratory Rate 17 11/20/2017 2:33 PM CDT Oxygen Saturation 95% 11/20/2017 2:33 PM CDT Inhaled Oxygen Concentration - - Weight 109 kg (240 lb) 11/20/2017 2:33 PM CDT Height 167.6 cm (5' 6") 11/20/2017 2:33 PM CDT Body Mass Index 38.74 11/20/2017 2:33 PM CDT Plan of Treatment Date Type Specialty Care Team Description 12/11/2017 Surgery Vascular Surgery Jin Morris BRONCHOSCOPY WITH CUAUHTEMOC Andrews MD [address] [facility] [address] [place], [place] [phone] 12/11/2017 Procedure Pass Vascular Surgery 12/11/2017 Hospital Encounter Vascular Surgery Jin Morris MD [address] [facility] [address] [place] [address] Health Maintenance Due Date Last Done Comments BREAST CANCER SCREENING 08/17/2001 COLON CANCER SCREENING 08/17/2001 SHINGRIX VACCINE (#1) 08/17/2001 ZOSTER VACCINE 2011 PNEUMOCOCCAL POLYSACCHARIDE VACCINE AGE 65 AND OVER 08/17/2016 PNEUMOCOCCAL-13 08/17/2016 INFLUENZA VACCINE 10/25/2017 Implants Implanted Type [facility] Director Device Expiration Model / Identifier Date Serial / Lot Monitor Cardiac Implant Confirm Rx - [id number] Cardiac N/A: N/A [employer] [id number] / Implanted: 06/21/2017 (Quantity not on file) [employer] / Related Products Procedures Procedure Name Priority Date/Time Associated Comments Diagnosis XR CHEST EXTERNAL Routine 11/07/2017 9:37 Results for this STUDY AM CDT procedure are in the results section. XR CHEST 1 VW Routine 11/07/2017 12:[address] CHEST WO CONTRAST Routine 10/31/2017 12:00 AM CDT HC COMPLETE BLD COUNT Routine 09/15/2017 5:23 [...] CDT procedure are in the results section. [place] AN ELECTIVE Routine 09/14/2017 9:28 ENDOTRACHEAL AIRWAY AM CDT Procedure Note - Vanna Garcia CRNA - 09/14/2017 9:28 AM CDT Airway Date/Time: 09/14/2017 8:59 AM Performed by: VANNA GARCIA Authorized by: CRISTINA JUAREZ Location: OR Urgency: Elective Difficult Airway: No Anesthesiologist: CRISTINA JUAREZ Resident/INTERNET MARKETING STRATEGIST/AA: CRISTINA JUAREZ Performed by: resident/INTERNET MARKETING STRATEGIST/AA Preoxygenated with 100% O2: Yes C-spine Precautions [...] PRE/POST OP Routine 09/14/2017 6:49 AM CDT XR CHEST EXTERNAL STUDY Routine 08/12/2017 3:54 AM CDT EP COMPLETE EP STUDY W [...] SPECTRAL COLOR DOPPLER procedure are in the (92792) results section. AST (SGOT) Routine 06/18/2017 7:15 [...] procedure are in the results section. after 12/01/2016 Results XR Chest External Study (11/07/2017 9:37 AM)Only the most recent of2 resultswithin the time period is included. Narrative Performed At This exam was not acquired at a [facility] facility and has not been [facility] interpreted by a [facility] Provider.The exam was imported into our imaging system for comparisons purposes. Performing Organization Address City/State/Zipcode Phone Number [facility] [address] [place] [address] XR Chest 1 Vw (11/07/2017) Narrative Performed At CT Chest Wo Contrast (10/31/2017) Narrative Performed At CBC with platelet and differential (09/15/2017 5:23 AM)Only the most recent of4 resultswithin the time period is included. WBC 6.03 4.50 - 11.00 k/uL [facility] RBC 3.57 (L) 4.20 - 5.50 m/uL [facility] HGB 9.8 (L) 12.0 - 16.0 g/dL [facility] HCT 32.8 (L) 37.0 - 47.0 % [facility] MCV 91.9 82.0 - 100.0 fL [facility] MCH 27.5 27.0 - 34.0 pg [facility] MCHC 29.9 (L) 31.0 - 37.0 g/dL [facility] RDW - SD 58.4 (H) 37.0 - 55.0 fL [facility] MPV 10.0 8.8 - 13.2 fL [facility] Platelet count 169 150 - 400 k/uL [facility] Nucleated RBC 0.00 /100 WBC [facility] Neutrophils 67.1 39.0 - 69.0 % [facility] Lymphocytes 21.1 (L) 25.0 - 45.0 % [facility] Monocytes 8.0 0.0 - 10.0 % [facility] Eosinophils 2.3 0.0 - 5.0 % [facility] Basophils 0.7 0.0 - 1.0 % [facility] Immature granulocytes 0.8Comment: 0.0 - 1.0 % [facility] "Immature PATHOLOGY AND GENOMIC granulocytes" MEDICINE (promyelocytes, myelocytes, metamyelocytes) Specimen Blood Performing Organization Address City/[facility] Phone Number [facility] [address] [place], [place] [phone] [facility] Estimated GFR (09/15/2017 4:00 AM)Only the most recent of4 resultswithin the time period is included. GFR Non Af Amer 63 mL/min/1.73 m2 [facility] GFR Af Amer 76 mL/min/1.73 m2 [facility] Comment: PATHOLOGY AND GENOMIC Chronic [...] Americans. Specimen Plasma specimen Performing Organization Address City/[facility]/Zipcode Phone Number [facility] AND [address] [place] [address] [employer] [facility] Basic metabolic panel (09/15/2017 4:00 AM)Only the most recent of3 resultswithin the time period is included. Sodium 135 135 - 148 mEq/L [facility] Potassium 3.8 3.5 - 5.0 mEq/L [facility] Chloride 97 (L) 98 - 112 mEq/L [facility] CO2 25 24 - 31 mEq/L [facility] Anion gap 13@ANIO 7 - 15 mEq/L [facility] BUN 15 8 - 23 mg/dL [facility] Creatinine 0.9 0.5 - 0.9 mg/dL [facility] Glucose 110 (H) 65 - 99 mg/dL [facility] Calcium 8.6 (L) 8.8 - 10.2 mg/dL [facility]IC[facility] Specimen Plasma specimen Performing Organization Address City/State/[facility] Phone Number [facility] AND [address] Cv electrophysiology procedure (09/14/2017 1:17 PM) Impressions Performed At -Successful pulmonary veins isolation x4 CUPID -Successful re-ablation of CTI -No arrhythmia [...] Performed At DATE OF OPERATION: 09/14/2017 CUPID CONCESSION ATTENDANT: Kristopher Moreno MD PREOPERATIVE DIAGNOSES: -Paroxysmal atrial [...] large curl Agilis sheath, through which a SmartTouch SF catheter, DF curve was advanced to [...] 350 sec, transseptal puncture was performed with Roy long needle (requiring RF) using ICE guidance. [...] HV interval was measured at 59msec and VL=[id number]. Post-procedure ICE showed no pericardial effusion.At this time, GA was stopped and patient was extubated; No immediate complications. Protamine was given at the end of the procedure.Sheaths were pulled in the lab and patient was transferred to the PACU in a stable condition. Performing Organization Address City/[facility]/Zipcode Phone Number [facility] [address] [place] [phone] Sodium level, syringe (09/14/2017 12:50 PM) Sodium, syringe 136 135 - 148 mEq/L [facility] Specimen Blood Performing Organization Address City/[facility] Phone Number [facility] AND [address] [place] [phone] [place] [address] Potassium, syringe (09/14/2017 12:50 PM) Potassium, syringe 4.1 3.5 - 5.0 mEq/L [facility]IC[facility] Specimen Blood Performing Organization Address [facility] Phone Number [facility] AND [address] [place] [address] Ionized calcium, arterial (09/14/2017 12:50 PM) Ionized calcium, arterial 1.04 (L) 1.11 - 1.32 mmol/L [facility]IC[facility] Specimen Blood Performing Organization Address [facility] Phone Number [facility] AND [address] [place] [address] Hemoglobin, syringe (09/14/2017 12:50 PM) Hemoglobin, syringe 10.5 (L) 12.0 - 16.0 g/dL [facility]IC[facility] Specimen Blood Performing Organization Address [facility] Phone Number [facility] AND [address] [place] [address] Glucose level, syringe (09/14/2017 12:50 PM) Glucose, syringe 167 (H) 65 - 99 mg/dL [facility]IC[facility] Specimen Blood Performing Organization Address [facility] Phone Number [facility] AND [address] [place] [address] Arterial blood gas, corrected (09/14/2017 12:50 PM) pH, arterial 7.34 (L) 7.35 - 7.45 [facility] pCO2, arterial 44 35 - 45 mmHg [facility] pO2, arterial 356 (H) 80 - 90 mmHg [facility] Temperature, Celsius 36.5 Degrees C [facility] O2 saturation, arterial 99 95 - 100 % [facility] pH, arterial corrected 7.35 [facility]IC[facility] pCO2, arterial corrected 43 mmHg [facility] pO2, arterial corrected 354 mmHg [facility] Base excess, arterial -2 -2 - 2 mEq/L [facility]OM[facility]IC[facility] Specimen Blood Performing Organization Address [facility] Phone Number [facility] AND [address] [place] [phone] [place] [address] MEDICINE Activated clotting time (09/14/2017 12:44 PM)Only the most recent of7 resultswithin the time period is included. Activated clotting time 129 96 - 152 sec [facility] Comment: PATHOLOGY AND GENOMIC Meter ID: [id number] [facility] Kiln Fireman ID: Larry Evans Performing Organization Address [facility] Phone Number [facility] AND [address] [place], [place] [phone] [facility] ECG Pre/Post Op (09/14/2017 6:49 AM)Only the most recent of2 resultswithin the time period is included. Ventricular rate 124 [facility] MUSE Atrial rate 337 [facility] QRSD interval 90 [facility] QT interval 344 [facility] QTC interval 494 [facility] QRS axis 1 28 [facility] T wave axis 122 [facility] EKG impression Atrial flutter with variable AV block-Nonspecific ST and T wave abnormality-Abnormal ECG-In automated comparison with ECG of 21-JUN-2017 07 :01,-Atrial flutter has replaced Sinus rhythm-Vent. rate has increased BY61 BPM-T wave inversion no longer [facility] evident in Anterolateral leads- Performing Organization Address [facility] Phone Number [facility] [address] [place] [address] Cv electrophysiology procedure (06/21/2017 9:15 AM) Impressions [...] At DATE OF OPERATION: June 21, 2017 GIGI CONCESSION ATTENDANT: Kristopher Moreno MD PREOPERATIVE DIAGNOSES: -Typical atrial [...] long 7-Fr, long 9-Fr, and a short 8-Turkmen sheath) using modified Seldinger technique.An ICE catheter sound was advanced to the RA RV junction.A baseline eye study showed normal ejection fraction and no pericardial effusion.The CTI line, His position,CS os were all marked on the Sound map.Following this the 8-Turkmen sheath was upgraded to a medium curl [...] indicating block across the line.Trans block conduction [id number] and bidirectional block was confirmed.Power of 30-40 [...] with medical adhesive (Prineo) ILR: Confirm Rx [id number]; OS=[id number]. Performing Organization Address [facility]/Zipcode Phone Number [facility] [address] [place] [address] Type and screen (06/20/2017 5:50 PM) ABO grouping O [facility] Rh type POS [facility] Antibody screen (gel) NEG [facility] Specimen Blood Performing Organization Address [facility] Phone Number [facility] AND [address] [place] [address] GENOMIC MEDICINE Magnesium level (06/19/2017 4:00 AM)Only the most recent of2 resultswithin the time period is included. Magnesium 1.7 1.6 - 2.4 mg/dL [facility]IC[facility] Specimen Plasma specimen Performing Organization Address City/State/Zipcode Phone Number [facility] AND [address] [place] [address] GENOMIC MEDICINE Echocardiogram complete w contrast and 3D if needed (06/18/2017 10:22 PM) Narrative Performed At [facility]ocardiography Report [address] [facility], [place] [address] Pat.Name:CHRISTINA SANTACRUZ Pat.ID:[id number] .Date: 06/18/2017 Refer.MD:YANICK STANLEY MD Exam Time: 9:42:00 PMStudy Type:Routine Echo Height:67inWeight: 234lb BSA: 2.16 m2 DOBAge:1950,66Y Sex: FEMALEBP:149/71 HR:68 bpmSonogrphr: Ishaan King RDCS Pat. Stat.:Inpatient Room:[facility] Study Status:Final Echo Event ID:[id number] Order ID:[id number] Reason for Study:Arrhythmias - Sustained or nonsustained [...] detected by Doppler. MEASUREMENTS: 2D Parasternal Long [place] LVOT 2.1 cmLA Ds3.9 cm LVIDd4.5 cmIndex2.1 cm/m Ao An2.4 cm LVIDs3 cmAo Rtd 3.1 cm Index1.4 cm/m LV%fs 33.3 % LV Lmmi157.9 g(87-129) IVSd 1 cmRWT0.4 LVPWd0.9 cm LA Sng Plane LA Area 11.1 cm2(8.8-23.4) LA Vol22.8 ml Index10.5 ml/m LA LngAx 4.8 cm DOPPLER LVOT Stroke Vol LVOT 2.1 cmLVOT SV 70.2 ml LVOT TVI20.3 cmLVOT CO4.8 l/min LVOT Tm301 [id number] bpm Signed 06/19/2017 09:18 AM Sylvain Fuentes M.D. Procedure Note Interface, Radiology Results In - 06/19/2017 9:18 AM CDT Echocardiography Report [address]Name: CHRISTINA SANTACRUZ AMY Alvarez.ID: [id number] .Date: 06/18/2017 Refer.MD: YANICK STANLEY MD Exam Time: 9:42:00 PM Study Type:Routine Echo Height: 67in Weight: 234lb BSA: 2.16 m2 Age: 6 1950,66Y Sex: FEMALE BP: 149/71 HR: 68 bpm Sonogrphr: Ishaan King CESAR Pat. Stat.:Inpatient Room: [facility] Study Status:Final Echo Event ID:[id number] Order ID: [id number] Reason for Study:Arrhythmias - Sustained or nonsustained [...] detected by Doppler. MEASUREMENTS: 2D Parasternal Long [place] LVOT 2.1 cm LA Ds 3.9 cm [...] AM Sylvain Fuentes M.D. Performing Organization Address City/[facility] Phone Number [facility] [address] [place] [address] ALT (SGPT) (06/18/2017 7:15 AM) ALT 16 5 - 50 U/L [facility] Specimen Plasma specimen Performing Organization Address [facility] Phone Number [facility] AND [address] [place] [phone] [facility] AST (SGOT) (06/18/2017 7:15 AM) AST 28 10 - 35 U/L [facility] GENOMIC MEDICINE Specimen Plasma specimen Performing Organization Address [facility] Phone Number [facility] AND [address] [place] [address] [facility] Potassium level (06/18/2017 7:15 AM) Potassium 3.3 (L) 3.5 - 5.0 mEq/L [facility]OMIC MEDICINE Specimen Plasma specimen Performing Organization Address [facility] Phone Number [facility] AND [address] [place], [place] [phone] [facility] Thyroid stimulating hormone (06/18/2017 4:00 AM) TSH 5.44 (H) 0.27 - 4.20 uIU/mL [facility] MEDIC[facility] Specimen Plasma specimen Performing Organization Address City/[facility] Phone Number [facility] AND [address] [place] [address] GENOMIC MEDICINE T4, free (06/18/2017 4:00 AM) T4, free 1.1 0.9 - 1.7 ng/dL [facility] GENOMIC MEDICINE Specimen Plasma specimen Performing Organization Address City/State/Zipcode Phone Number [facility] AND [address] [place] [address] GENOMIC MEDICINE Comprehensive metabolic panel (06/18/2017 4:00 AM) Sodium 137 135 - 148 mEq/L [facility] GENOMIC MEDICINE Potassium SEE COMMENT 3.5 - 5.0 mEq/L [facility] Comment: PATHOLOGY AND GENOMIC Footnote--------- MEDICINE Unable to perform testing, specimen is hemolyzed.Recollect requested for K AST ALT.Lorelei Díaz/D9W notified by BB at06/18/201705:27.Credit issued. Chloride 96 (L) 98 - 112 mEq/L [facility] GENOMIC MEDICINE CO2 28 24 - 31 mEq/L [facility] GENOMIC MEDICINE Anion gap 13 7 - 15 mEq/L [facility] Comment: PATHOLOGY AND GENOMIC Starting from June , anion gap calculation MEDICINE no longer incorporates potassium. Please note the change. BUN 15 8 - 23 mg/dL [facility] GENOMIC MEDICINE Creatinine 0.7 0.5 - 0.9 mg/dL [facility] GENOMIC MEDICINE Glucose 89 65 - 99 mg/dL [facility] GENOMIC MEDICINE Calcium 9.3 8.8 - 10.2 mg/dL [facility]OLOGY AND GENOMIC MEDICINE Protein 7.4 6.3 - 8.3 g/dL [facility] OF Comment: PATHOLOGY AND GENOMIC 4.6-7.0 g/dL MEDICINE 1 week 4.4-7.6 g/dL 7 months-1year5.1-7.3 g/dL 1-2 years5.6-7.5 g/dL >3 years6.0-8.0 g/dL 18-150 6.3-8.3 g/dL Albumin 2.9 (L) 3.5 - 5.0 g/dL [facility] GENOMIC MEDICINE A/G ratio 0.6 (L) 0.7 - 3.8 [facility]OLOG[facility] AND GENOMIC MEDICINE Alkaline phosphatase 53 35 - 104 U/L [facility] PATHOLOGY AND GENOMIC MEDICINE AST SEE COMMENTComment: 10 - 35 U/L [facility] Footnote--------- PATHOLOGY AND GENOMIC MEDICINE ALT SEE COMMENTComment: 5 - 50 U/L [facility] OF Footnote--------- PATHOLOGY AND GENOMIC MEDICINE Total bilirubin 0.3 0.0 - 1.2 mg/dL [facility] PATHOLOGY AND GENOMIC MEDICINE Specimen Plasma specimen Performing Organization Address City/State/[facility] Phone Number [facility] AND [address] [place] [address] [employer] MEDICINE after 12/01/2016 Insurance Payer Benefit Plan / Group Subscriber ID Type Phone Address MEDICARE MEDICARE PART A AND B xxxxxxxxxx Medicare [place], [place] COMMERCIAL MISC MISC COMMERCIAL xxxxxx-xx Commercial Home: [id number] [phone] [id number]
--- OUTSIDE RECORDS SUMMARY | 2017-12-02 07:12 | XMS REPORT | Clinical Summary ---
:1950 Author Organization [facility] Address [address] [place] [address] Phone Care Team Providers Name Role Phone [...] polyneuropathy) (HCC) sodium chloride 0.9% IV Once 07/11/2017 07/11/2017 Ended (NS) infusionIndications: CIDP (chronic inflammatory demyelinating polyneuropathy) (HCC) diphenhydrAMINE 25 MG IV Once 07/11/2017 07/11/2017 Ended (BENADRYL) injection 25 mgIndications: CIDP (chronic inflammatory demyelinating polyneuropathy) (HCC) immune globulin 45 g IV Once 08/10/2017 08/10/2017 Ended (human) and maltose (OCTAGAM) injection 45 gIndications: CIDP (chronic inflammatory demyelinating polyneuropathy) (HCC) sodium chloride 0.9% IV Once 08/10/2017 08/10/2017 Ended (NS) infusion diphenhydrAMINE 25 MG IV Once 08/10/2017 08/10/2017 Ended (BENADRYL) injection 25 mg immune globulin 45 g IV Once 09/12/2017 09/12/2017 Ended (human) and maltose (OCTAGAM) injection 45 gIndications: CIDP (chronic inflammatory demyelinating polyneuropathy) (HCC) sodium chloride 0.9% IV Once 09/12/2017 09/12/2017 Ended (NS) infusion diphenhydrAMINE 25 MG IV Once 09/12/2017 09/12/2017 Ended (BENADRYL) injection 25 mg immune globulin 40 g IV Once 10/12/2017 10/12/2017 Ended (human) and maltose (OCTAGAM) injection 40 gIndications: CIDP (chronic inflammatory demyelinating polyneuropathy) (HCC) sodium chloride 0.9% IV Once 10/12/2017 10/12/2017 Ended (NS) infusion diphenhydrAMINE 25 MG IV Once 10/12/2017 10/12/2017 Ended (BENADRYL) injection 25 mg immune globulin 40 g IV Once 11/09/2017 11/09/2017 Ended (human) and maltose (OCTAGAM) injection 40 gIndications: CIDP (chronic inflammatory demyelinating polyneuropathy) (HCC) sodium chloride 0.9% IV Once 11/09/2017 11/09/2017 Ended (NS) infusion diphenhydrAMINE 25 MG IV Once 11/09/2017 11/09/2017 Ended (BENADRYL) injection 25 mg Active Problems Problem Noted Date COPD (chronic obstructive pulmonary disease) ([facility]) 08/09/2013 Bronchiectasis ([facility]) 08/09/2013 Hypogammaglobulinemia ([facility]) 12/03/2012 CIDP (chronic inflammatory demyelinating polyneuropathy) ([facility]) 09/28/2012 Encounters Date Type Specialty Care Team Description 11/09/2017 Procedure visit Oncology Rian Olivera, CIDP (chronic inflammatory MD demyelinating polyneuropathy) Jin Morris ([facility]) MD Viktor Andrews Shannon, RN 10/12/2017 Procedure visit Oncology Rian Olivera, CIDP (chronic inflammatory MD demyelinating polyneuropathy) Jin Morris ([facility]) MD Bekah Andrews Rachel L, RN 09/12/2017 Procedure visit Oncology Rian Olivera, CIDP (chronic inflammatory MD demyelinating polyneuropathy) Jin Morris ([facility]) MD Syl Andrews Dana M, RN 08/10/2017 Procedure visit Oncology Rian Olivera, CIDP (chronic inflammatory MD demyelinating polyneuropathy) Jin Morris ([facility]) MD Kenney Andrews L R, RN 07/11/2017 Procedure visit Oncology Rian Olivera, CIDP (chronic inflammatory MD demyelinating polyneuropathy) Jin Morris ([facility]) (Primary Dx) MD Bakari Andrews Shalonda, RN 06/13/2017 Procedure visit Oncology Rian Olivera, Hypogammaglobulinemia ([facility]) (Primary Dx) Jin Morris MD Alexander, L R, RN 05/16/2017 Procedure visit Oncology Rian Olivera, Hypogammaglobulinemia ([facility]) (Primary Dx) Jin Morris MD Alexander, L R, RN 04/18/2017 Procedure visit Oncology Rian Olivera, CIDP (chronic inflammatory MD demyelinating polyneuropathy) Jin Morris ([facility]) (Primary Dx) MD Bakari Andrews Shalonda, RN 04/14/2017 Procedure visit Oncology Rian Olivera, Canceled (Patient) Jin Coppola MD 03/17/2017 Procedure visit Oncology Rian Olivera, CIDP (chronic inflammatory MD demyelinating polyneuropathy) Jin Morris ([facility]) (Primary Dx) MD Bekah Andrews Rachel L, RN 02/15/2017 Procedure visit Oncology Rian Olivera, Hypogammaglobulinemia ([facility]) (Primary Dx) Jin Morris MD Raibon, Danielle L, RN 01/11/2017 Procedure visit Oncology Rian Olivera, Pulmonary emphysema, unspecified emphysema type Jin Morris ([facility]) (Primary Dx) MD Kenney Andrews L R, RN 12/14/2016 Procedure visit Oncology Rian Olivera, CIDP (chronic inflammatory MD demyelinating polyneuropathy) Jin Morris ([facility]) MD Kenney Andrews L R, RN after 12/01/2016 Family History Medical History Relation [...] Vital Sign Reading Time Taken Blood Pressure 185/73 11/09/2017 11:14 AM CDT Pulse 77 11/09/2017 11:14 AM CDT Temperature 36.9 C (98.4 F) 11/09/2017 11:14 AM CDT Respiratory Rate 20 11/09/2017 11:14 AM CDT Oxygen Saturation 100% 11/09/2017 11:14 AM CDT Inhaled Oxygen Concentration - - Weight 108.4 kg (238 lb 14.4 oz) 09/12/2017 10:50 AM CDT Height 172.7 cm (5' 8") 02/15/2017 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 Specimen Performing Laboratory Blood [address] [address] BUN (07/11/2017 2:00 PM)Only the most recent of2 resultswithin the time period is included. Component Value Ref Range BUN 14 7 - 21 mg/dL Specimen Performing Laboratory Blood [facility] [address] [place] [address] Creatinine (07/11/2017 2:00 PM)Only the most recent of2 resultswithin the time period is included. Component Value Ref Range Creatinine 0.78 0.57 - 1.25 mg/dL EGFR 74Comment: ESTIMATED GFR IS NOT ACCURATE mL/min/1.73 sq m CREATININE CLEARANCE IN PREDICTING GLOMERULAR FILTRATION RATE. ESTIMATED GFR IS NOT APPLICABLE FOR DIALYSIS PATIENTS. Specimen Performing Laboratory Blood [facility] [address] [place] [id number] after 12/01/2016
--- OUTSIDE RECORDS SUMMARY | 2017-12-02 07:12 | XMS REPORT ---
:1950 Author Organization [facility] Address [address] [place], [place] [address]yogesh Vickers [address] [place] [address] Care Team Providers Name Role Phone JENNIFER [...] UREA NITROGEN (BEAKER) 20 mg/dL 7-21 (test cveq=983) CREATININE (BEAKER) (test 0.80 mg/dL 0.57-1.25 Specimen moderately gtxj=880) hemolyzed EGFR (BEAKER) (test 72 mL/min/1.73 sq m ESTIMATED GFR IS NOT ipdc=9301) ACCURATE CREATININE CLEARANCE IN PREDICTING GLOMERULAR FILTRATION RATE. ESTIMATED GFR IS NOT APPLICABLE FOR DIALYSIS PATIENTS. [id number] 15:50:00 Test Item Value Reference Range Comments BLOOD UREA NITROGEN (BEAKER) (test qnae=277) 14 mg/dL 7-21 [id number] 15:50:00 Test Item Value Reference Range Comments CREATININE (BEAKER) (test 0.78 mg/dL 0.57-1.25 uwbf=530) EGFR (BEAKER) (test 74 mL/min/1.73 sq m ESTIMATED GFR IS NOT zjsc=0953) ACCURATE CREATININE CLEARANCE IN PREDICTING GLOMERULAR FILTRATION RATE. ESTIMATED GFR IS NOT APPLICABLE FOR DIALYSIS PATIENTS. [id number] 14:55:00 Test Item Value Reference Range Comments BLOOD UREA NITROGEN (BEAKER) (test aftj=437) 11 mg/dL 7-21 [id number] 14:55:00 Test Item Value Reference Range Comments CREATININE (BEAKER) (test 0.65 mg/dL 0.57-1.25 qtcs=506) EGFR (BEAKER) (test 91 mL/min/1.73 sq m ESTIMATED GFR IS NOT ptpn=3039) ACCURATE CREATININE CLEARANCE IN PREDICTING GLOMERULAR FILTRATION RATE. ESTIMATED GFR IS NOT APPLICABLE FOR DIALYSIS PATIENTS. BUN AND [id number] 15:59:00 Test Item Value Reference Range Comments BLOOD UREA NITROGEN 10 mg/dL 7-21 (BEAKER) (test oavn=494) CREATININE (BEAKER) (test 0.65 mg/dL 0.57-1.25 osgz=931) EGFR (BEAKER) (test 91 mL/min/1.73 sq m ESTIMATED GFR IS NOT yewj=1211) ACCURATE CREATININE CLEARANCE IN PREDICTING GLOMERULAR FILTRATION RATE. ESTIMATED GFR IS NOT APPLICABLE FOR DIALYSIS PATIENTS. [id number] 14:45:00 Test Item Value Reference Range Comments BLOOD UREA NITROGEN (BEAKER) (test artr=149) 13 mg/dL 7-21 [id number] 14:45:00 Test Item Value Reference Range Comments CREATININE (BEAKER) (test 0.74 mg/dL 0.57-1.25 zfng=900) EGFR (BEAKER) (test 79 mL/min/1.73 sq m ESTIMATED GFR IS NOT twei=1884) ACCURATE CREATININE CLEARANCE IN PREDICTING GLOMERULAR FILTRATION RATE. ESTIMATED GFR IS NOT APPLICABLE FOR DIALYSIS PATIENTS. BUN AND [id number] 14:55:00 Test Item Value Reference Range Comments BLOOD UREA NITROGEN 13 mg/dL 7-21 (BEAKER) (test thpg=012) CREATININE (BEAKER) (test 0.69 mg/dL 0.57-1.25 ygja=422) EGFR (BEAKER) (test 85 mL/min/1.73 sq m ESTIMATED GFR IS NOT bwmq=4335) ACCURATE CREATININE CLEARANCE IN PREDICTING GLOMERULAR FILTRATION RATE. ESTIMATED GFR IS NOT APPLICABLE FOR DIALYSIS PATIENTS. [id number] 17:24:00 Test Item Value Reference Range Comments BLOOD UREA NITROGEN (BEAKER) (test yxjj=781) 12 mg/dL 7-21 [id number] 17:24:00 Test Item Value Reference Range Comments CREATININE (BEAKER) (test 0.67 mg/dL 0.57-1.25 zhlb=473) EGFR (BEAKER) (test 89 mL/min/1.73 sq m ESTIMATED GFR IS NOT sijo=5098) ACCURATE CREATININE CLEARANCE IN PREDICTING GLOMERULAR FILTRATION RATE. ESTIMATED GFR IS NOT APPLICABLE FOR DIALYSIS PATIENTS.
[2017-12-02] MEDS ORDERED: METHYLPREDNISOLONE 125 MG INJ ONE (07:40)
[2017-12-02] MEDS ORDERED: LEVALBUTEROL 1.25 MG/3 ML NEB ONE (07:40)
[2017-12-02] MEDS ORDERED: METOPROLOL TAR 25 MG TAB ONE ×2 (07:47→08:50)
[2017-12-02] MEDS ORDERED: METOPROLOL TARTRATE 5 MG/5 ML INJ IV ONE ×2 (07:47→08:50)
[2017-12-02 08:04] LABS: Protime INR 2.44
[2017-12-02 08:10] LABS: Absolute Lymphocytes (CBC) 1.1 K/uL (0.7-4.9); Absolute Monocytes 0.9 K/uL (0.1-1.3); Absolute Neutrophil 6.7 K/uL (1.8-8.0); Basophils % 0.3 % (0-1.3); Eosinophils % 1.6 % (0-4.4); Hematocrit 36.3 % (36.0-45.0); Lymphocytes % 12.1 % (15.3-44.8); MCH 26.9 pg (27.0-35.0); MCV 82.6 fL (80-100); MPV 7.7 fL (7.6-11.3); Monocytes % 10.3 % (3.3-12.3)
[2017-12-02] MEDS ORDERED: MAGNESIUM SULFATE 1 gm IVPB 1 GM/100 ML BAG IV ONE (08:11)
[2017-12-02 08:18] LABS: CKMB Creatine Kinase MB 1.1 ng/mL (0.3-3.6); Magnesium 1.7 mg/dL (1.8-2.4); Potassium 3.2 mmol/L (3.5-5.1); Troponin (Emerg Dept Use Only) 0.05 ng/mL (0.0-0.045)
[2017-12-02 08:32] LABS: Anisocytosis 1+; Blood Morphology Comment NOTED (NOT SEEN); Macrocytosis 1+; Platelet Estimate ADEQ; Urine White Blood Cell Casts OK
[2017-12-02] MEDS ORDERED: HYDROCODONE/APAP 10/325 TAB ONE (09:00)
--- NOTE | 2017-12-02 09:28 | ER ---
Nurse's Notes [facility] Name: Marlen Santacruz Age: 67 yrs Sex: Female : 1950 Arrival Date: 12/02/2017 Time: 07:10 Bed 15 Private MD: Caleb Patel H Diagnosis: Chronic obstructive pulmonary disease with (acute) exacerbation;Atrial fibrillation and flutter Presentation: 12/02 07:15 Presenting complaint: Patient states: Woke up at 0200 this morning SOB and did a rb1 breathing treatment. I am being treated with antibiotics now. Transition of care: patient was not received from another setting of care. Onset of symptoms was December 02, 2017 at 02:00. 07:15 Method Of Arrival: Wheelchair rb1 07:15 Acuity: LINDEN 3 rb1 07:15 Risk Assessment: Do you want to hurt yourself or someone else? Patient reports no rb1 desire to harm self or others. Initial Sepsis Screen: Does the patient meet any 2 criteria? No. Patient's initial sepsis screen is negative. Does the patient have a suspected source of infection? No. Patient's initial sepsis screen is negative. Care prior to arrival: Medication(s) given: Pt. did a breathing treatment at 0200 this morning. 07:45 Acuity: LINDEN 2 iw Triage Assessment: 07:15 General: Appears uncomfortable, obese, Behavior is calm, cooperative, Reports fever rb1 for. Pain: Complains of pain in chest Pain does not radiate. Pt. stated, "It hurts when I cough." Pain currently is 6 out of 10 on a pain scale. Neuro: Level of Consciousness is awake, alert, obeys commands, Oriented to person, place, time, situation. Cardiovascular: Capillary refill < 3 seconds is brisk in bilateral fingers. Respiratory: Reports shortness of breath at rest cough that is productive, White sputum Onset: The symptoms/episode began/occurred 0200 this morning. GI: No signs and/or symptoms were reported involving the gastrointestinal system. : No signs and/or symptoms were reported regarding the genitourinary system. Derm: Skin is pink, warm \\T\\ dry. 07:15 Respiratory: the patient has moderate shortness of breath. rb1 Historical: - Allergies: 07:15 Ciprofloxacin; rb1 07:15 Demerol; rb1 07:15 Ibuprofen; rb1 07:15 Iodine; rb1 07:15 Keflex; rb1 07:15 Morphine; rb1 07:15 Levaquin; rb1 07:15 PENICILLINS; rb1 07:15 Sporanox; rb1 - Home Meds: 07:15 Arava 20 mg Oral tab 1 tab once daily [Active]; prednisone 10 mg Oral tab once daily rb1 [Active]; sulfasalazine 500 mg Oral tab 1 tab twice a day [Active]; clonidine HCl 0.2 mg Oral tab 2 times per day [Active]; Magnesium Oxide Oral [Active]; Nasonex 50 mcg/actuation Nasal spry once daily [Active]; omeprazole 40 mg Oral cpDR 1 cap 2 times per day [Active]; duloxetine 30 mg Oral cpDR 2 times per day [Active]; Brovana 15 mcg/2 mL inhalation nebu 2 mL 2 times per day [Active]; budesonide 0.25mg Oral CECX 2 caps twice a day [Active]; Esbriet 267 mg Oral cap 3 caps after meals [Active]; Atrovent Inhl twice a day [Active]; Healdton 10-325 mg Oral tab [Active]; immune globul,gamma(IgG)-sorb-IgA 0 to 50 mcg/mL intravenous every 4 wks [Active]; Xarelto 20 mg Oral tab 1 tab once daily [Active]; Cartia XT 240 mg oral cp24 [Active]; propafenone 225 mg oral tab [Active]; amitriptyline 50 mg Oral tab 2 tabs once daily [Active]; Boniva 150 mg oral tab 1 tab once moly [Active]; 07:15 cefpodoxime 200 mg oral tab 1 tab every 12 hours [Active]; Mucinex 600 mg oral Ta12 1 rb1 tab every 12 hours [Active]; - PMHx: 07:53 ADD/ADHD; Arthritis; Atrial Fib; COPD; Depression; GERD; Hypertension; Polyps Colon; iw Polyps Stomach; Rheumatoid Arthritis; Staph Infection Left Great Toe; - PSHx: 07:53 Heart stents; iw 07:15 Heart Ablation; Tonsillectomy; Removed Fatty tumor right shoulder; Appendectomy; rb1 Cholecystectomy; Hysterectomy; Carpal Tunnel Repair; Transposition of greater tendon in right thumb; tendon repair in bilateral wrists; Removed knuckles in digits 2-5 on right foot; C6-C7 fusion; Fused left great toe; Back; left and right knee; - Immunization history:: Adult Immunizations up to date. - Social history:: Smoking status: Patient/guardian denies using tobacco. - Ebola Screening: : Patient negative for fever greater than or equal to 101.5 degrees Fahrenheit, and additional compatible Ebola Virus Disease symptoms. Screenin:54 Abuse screen: Denies threats or abuse. Denies injuries from another. Nutritional iw screening: No deficits noted. Tuberculosis screening: No symptoms or risk factors identified. Fall Risk IV access (20 points). Assessment: 07:15 Cardiovascular: Rhythm is atrial fibrillation. Respiratory: Airway is patent rb1 Respiratory effort is even, labored, Respiratory pattern is regular, symmetrical, Sputum is white. 07:15 General: See triage assessment. rb1 07:15 Respiratory: rb1 08:15 Reassessment: Patient appears in no apparent distress at this time. Patient and/or rb1 family updated on plan of care and expected duration. Pain level reassessed. Patient is alert, oriented x 3, equal unlabored respirations, skin warm/dry/pink. pt. is feeling a little better. 09:15 Reassessment: Patient appears in no apparent distress at this time. No changes from rb1 previously documented assessment. 10:10 Reassessment: Patient appears in no apparent distress at this time. Patient and/or rb1 family updated on plan of care and expected duration. Pain level reassessed. Patient is alert, oriented x 3, equal unlabored respirations, skin warm/dry/pink. Patient states feeling better. 10:12 Reassessment: Called report to MANJINDER Watson. Information from the SBAR was given. All rb1 questions asked and answered. Vital Signs: 07:15 BP 133 / 103; Pulse 79; Resp 22; Temp 98.2; Pulse Ox 99% on 3 lpm NC; Weight 107.05 kg; rb1 Height 5 ft. 5 in. (165.10 cm) (R); Pain 6/10; 08:14 BP 136 / 102; Pulse 117; Resp 24; Pulse Ox 98% on 3 lpm NC; dh3 08:42 BP 141 / 98; Pulse 97; Resp 21; Pulse Ox 100% on 3 lpm NC; rb1 09:27 BP 114 / 94; Pulse 127; Resp 22; Pulse Ox 98% on 3 lpm NC; dh3 10:22 BP 114 / 78; Pulse 112; Resp 24; Pulse Ox 96% on 3 lpm NC; Pain 6/10; rb1 07:15 Body Mass Index 39.27 (107.05 kg, 165.10 cm) rb1 ED Course: 07:10 Patient arrived in ED. sb2 07:11 Caleb Patel DO is Private Physician. sb2 07:15 Clarissa Green FNP-C is [facility]. kb 07:15 Michael Erwin MD is Attending Physician. kb 07:15 Arm band placed on right wrist. rb1 07:15 Patient has correct armband on for positive identification. Bed in low position. Call rb1 light in reach. Side rails up X 1. security monitor on. Pulse ox on. NIBP on. Warm blanket given. 07:27 Darcy Weldon, RN is Primary Nurse. rb1 07:29 Triage completed. rb1 07:44 Inserted saline lock: 20 gauge in left antecubital area, using aseptic technique. dh3 07:44 Initial lab(s) drawn, by nm, sent to lab. Inserted saline lock: 20 gauge in right iw antecubital area, using aseptic technique. Blood collected. 08:14 XRAY Chest (1 view) In Process Unspecified. EDMS 09:27 Marvin Loza DO is Hospitalizing Provider. kb 10:30 No provider procedures requiring assistance completed. Patient admitted, IV remains in rb1 place. Administered Medications: 07:33 Drug: Xopenex (3) 1.25 mg Route: Inhalation; rb1 08:01 Follow up: Response: No adverse reaction; Some improvement rb1 07:35 Drug: Lopressor 25 mg Route: PO; rb1 08:05 Follow up: Response: No adverse reaction rb1 07:45 Drug: SOLU-Medrol 125 mg Route: IVP; Site: right antecubital; rb1 08:01 Follow up: Response: No adverse reaction rb1 07:45 Drug: Lopressor 5 mg Route: IVP; Site: right antecubital; rb1 08:01 Follow up: Response: No adverse reaction; BP 136/102 P 138 rb1 08:09 Drug: Magnesium Sulfate 1 grams {Note: Had to wait for pharmacy to bring it to the rb1 floor. The Pyxis would open but the bin was empty..} Route: IVPB; Infused Over: 1 hrs; Site: right antecubital; 09:10 Follow up: Response: No adverse reaction; IV Status: Completed infusion rb1 08:48 Drug: Lopressor 5 mg {Note: BP 141/98 P 97.} Route: IVP; Site: right antecubital; rb1 09:15 Follow up: Response: No adverse reaction; Blood pressure is lowered rb1 08:48 Drug: Lopressor 25 mg Route: PO; rb1 09:15 Follow up: Response: No adverse reaction rb1 08:56 Drug: Healdton 10 mg-325 mg 1 tabs Route: PO; rb1 09:25 Follow up: Response: No adverse reaction; Pain is decreased rb1 09:30 Drug: Potassium Chloride 40 mEq Route: PO; rb1 10:00 Follow up: Response: No adverse reaction rb1 Intake: Output: 09:15 Urine: 100ml (Voided); Total: 100ml. rb1 Outcome: :27 Decision to Hospitalize by Provider. kb 10:30 Patient left the ED. rb1 10:30 Admitted to Tele accompanied by tech, via wheelchair, room 429, with chart, Report rb1 called to MANJINDER Watson 10:30 Condition: stable 10:30 Instructed on the need for admit. Signatures: Dispatcher [employer] EDMS Clarissa Green, ACADEMIC AFFAIRS MANAGER-C ACADEMIC AFFAIRS MANAGER-Ckb Quin Gil RN RN iw Darcy Weldon RN RN rb1 Francia Baxter 3 Tammie Rowell sb2 Corrections: (The following items were deleted from the chart) 08:11 07:15 BP 133 / 103; Pulse 79bpm; Resp 22bpm; Pulse Ox 99% 3 lpm Nasal Cannula; Temp rb1 98.2F; 107.05 kg; Height 5 ft. 5 in. Reported; BMI: 39.2; rb1 18:13 10:49 Patient left the ED. rb1 rb1
--- NOTE | 2017-12-02 09:28 | EDPHYS ---
Physician Documentation [facility] Name: Marlen Santacruz Age: 67 yrs Sex: Female : 1950 Arrival Date: 12/02/2017 Time: 07:10 Bed 15 Private MD: Caleb Patel H ED Physician Michael Erwin HPI: 12/02 08:31 This 67 yrs old Female presents to ER via Wheelchair with complaints of kb Breathing Difficulty. 08:31 The patient has shortness of breath that woke him/her from sleep. Onset: The kb symptoms/episode began/occurred this morning, at 02:00. Duration: The symptoms are continuous, and are unchanged since they started. The patient's shortness of breath is aggravated by light activity, is alleviated by nothing. Associated signs and symptoms: The patient has no apparent associated signs or symptoms. Severity of symptoms: At their worst the symptoms were moderate in the emergency department the symptoms are unchanged. The patient has experienced similar episodes in the past, multiple times. The patient has been recently seen by a physician: a lumber sticker, at a clinic, yesterday. Historical: - Allergies: 07:15 Ciprofloxacin; rb1 07:15 Demerol; rb1 07:15 Ibuprofen; rb1 07:15 Iodine; rb1 07:15 Keflex; rb1 07:15 Morphine; rb1 07:15 Levaquin; rb1 07:15 PENICILLINS; rb1 07:15 Sporanox; rb1 - Home Meds: 07:15 Arava 20 mg Oral tab 1 tab once daily [Active]; prednisone 10 mg Oral tab once daily rb1 [Active]; sulfasalazine 500 mg Oral tab 1 tab twice a day [Active]; clonidine HCl 0.2 mg Oral tab 2 times per day [Active]; Magnesium Oxide Oral [Active]; Nasonex 50 mcg/actuation Nasal spry once daily [Active]; omeprazole 40 mg Oral cpDR 1 cap 2 times per day [Active]; duloxetine 30 mg Oral cpDR 2 times per day [Active]; Brovana 15 mcg/2 mL inhalation nebu 2 mL 2 times per day [Active]; budesonide 0.25mg Oral CECX 2 caps twice a day [Active]; Esbriet 267 mg Oral cap 3 caps after meals [Active]; Atrovent Inhl twice a day [Active]; Lakeside 10-325 mg Oral tab [Active]; immune globul,gamma(IgG)-sorb-IgA 0 to 50 mcg/mL intravenous every 4 wks [Active]; Xarelto 20 mg Oral tab 1 tab once daily [Active]; Cartia XT 240 mg oral cp24 [Active]; propafenone 225 mg oral tab [Active]; amitriptyline 50 mg Oral tab 2 tabs once daily [Active]; Boniva 150 mg oral tab 1 tab once moly [Active]; 07:15 cefpodoxime 200 mg oral tab 1 tab every 12 hours [Active]; Mucinex 600 mg oral Ta12 1 rb1 tab every 12 hours [Active]; - PMHx: 07:53 ADD/ADHD; Arthritis; Atrial Fib; COPD; Depression; GERD; Hypertension; Polyps Colon; iw Polyps Stomach; Rheumatoid Arthritis; Staph Infection Left Great Toe; - PSHx: 07:53 Heart stents; iw 07:15 Heart Ablation; Tonsillectomy; Removed Fatty tumor right shoulder; Appendectomy; rb1 Cholecystectomy; Hysterectomy; Carpal Tunnel Repair; Transposition of greater tendon in right thumb; tendon repair in bilateral wrists; Removed knuckles in digits 2-5 on right foot; C6-C7 fusion; Fused left great toe; Back; left and right knee; - Immunization history:: Adult Immunizations up to date. - Social history:: Smoking status: Patient/guardian denies using tobacco. - Ebola Screening: : Patient negative for fever greater than or equal to 101.5 degrees Fahrenheit, and additional compatible Ebola Virus Disease symptoms. ROS: 09:13 Constitutional: Negative for fever, chills, and weight loss, Cardiovascular: Negative kb for chest pain, palpitations, and edema, Abdomen/GI: Negative for abdominal pain, nausea, vomiting, diarrhea, and constipation, Back: Negative for injury and pain, : Negative for injury, bleeding, discharge, and swelling, MS/Extremity: Negative for injury and deformity, Skin: Negative for injury, rash, and discoloration, Neuro: Negative for headache, weakness, numbness, tingling, and seizure. 09:13 Respiratory: Positive for shortness of breath, Negative for cough, dyspnea on exertion, hemoptysis, orthopnea, pleurisy, sputum production, wheezing. Exam: 09:14 Constitutional: This is a well developed, well nourished patient who is awake, alert, kb and in no acute distress. Head/Face: Normocephalic, atraumatic. Chest/axilla: Normal chest wall appearance and motion. Nontender with no deformity. No lesions are appreciated. Abdomen/GI: Soft, non-tender, with normal bowel sounds. No distension or tympany. No guarding or rebound. No evidence of tenderness throughout. Back: No spinal tenderness. No costovertebral tenderness. Full range of motion. Skin: Warm, dry with normal turgor. Normal color with no rashes, no lesions, and no evidence of cellulitis. MS/ Extremity: Pulses equal, no cyanosis. Neurovascular intact. Full, normal range of motion. Neuro: Awake and alert, GCS 15, oriented to person, place, time, and situation. Cranial nerves II-XII grossly intact. Motor strength 5/5 in all extremities. Sensory grossly intact. Cerebellar exam normal. Normal gait. 09:14 Cardiovascular: Rate: tachycardic, Rhythm: irregularly irregular. 09:14 Respiratory: the patient does not display signs of respiratory distress, Respirations: labored breathing, that is mild, that is moderate, Breath sounds: wheezing: expiratory that is mild, that is moderate, is scattered. Vital Signs: 07:15 BP 133 / 103; Pulse 79; Resp 22; Temp 98.2; Pulse Ox 99% on 3 lpm NC; Weight 107.05 kg; rb1 Height 5 ft. 5 in. (165.10 cm) (R); Pain 6/10; 08:14 BP 136 / 102; Pulse 117; Resp 24; Pulse Ox 98% on 3 lpm NC; dh3 08:42 BP 141 / 98; Pulse 97; Resp 21; Pulse Ox 100% on 3 lpm NC; rb1 09:27 BP 114 / 94; Pulse 127; Resp 22; Pulse Ox 98% on 3 lpm NC; dh3 10:22 BP 114 / 78; Pulse 112; Resp 24; Pulse Ox 96% on 3 lpm NC; Pain 6/10; rb1 07:15 Body Mass Index 39.27 (107.05 kg, 165.10 cm) rb1 MDM: 07:15 Patient medically screened. kb 09:14 Data reviewed: vital signs, nurses notes. Data interpreted: Pulse oximetry: on room air kb is 100 %. Interpretation: normal. Counseling: I had a detailed discussion with the patient and/or guardian regarding: the historical points, exam findings, and any diagnostic results supporting the discharge/admit diagnosis, lab results, the need for further work-up and treatment in the hospital. Physician consultation: Marvin Loza DO was contacted at 09:14, regarding admission, to the telemetry unit. and will see patient in ED, shortly. 12/02 07:27 Order name: Basic Metabolic Panel; Complete Time: 08:18 kb 12/02 07:27 Order name: CBC with Diff; Complete Time: 08:36 kb 12/02 07:27 Order name: Ckmb; Complete Time: 08:18 kb 12/02 07:27 Order name: CPK; Complete Time: 08:18 kb 12/02 07:27 Order name: Magnesium; Complete Time: 08:20 kb 12/02 07:27 Order name: NT PRO-BNP; Complete Time: 08:20 kb 12/02 07:27 Order name: PT-INR; Complete Time: 08:14 kb 12/02 07:27 Order name: Ptt, Activated; Complete Time: 08:14 kb 12/02 07:27 Order name: Troponin (emerg Dept Use Only); Complete Time: 08:18 kb 12/02 07:27 Order name: XRAY Chest (1 view); Complete Time: 10:24 kb 12/02 08:14 Order name: CBC Smear Scan; Complete Time: 08:36 EDMS 12/02 07:27 Order name: EKG; Complete Time: 07:28 kb 12/02 07:27 Order name: Cardiac monitoring; Complete Time: 07:56 kb 12/02 07:27 Order name: EKG - Nurse/Tech; Complete Time: 07:55 kb 12/02 07:27 Order name: IV Saline Lock; Complete Time: 07:56 kb 12/02 07:27 Order name: Labs collected and sent; Complete Time: 07:56 kb 12/02 07:27 Order name: O2 Per Protocol; Complete Time: 07:56 kb 12/02 07:27 Order name: O2 Sat Monitoring; Complete Time: 07:56 kb 12/02 08:54 Order name: Diet Regular; Complete Time: 08:54 eb Administered Medications: 07:33 Drug: Xopenex (3) 1.25 mg Route: Inhalation; rb1 08:01 Follow up: Response: No adverse reaction; Some improvement rb1 07:35 Drug: Lopressor 25 mg Route: PO; rb1 08:05 Follow up: Response: No adverse reaction rb1 07:45 Drug: SOLU-Medrol 125 mg Route: IVP; Site: right antecubital; rb1 08:01 Follow up: Response: No adverse reaction rb1 07:45 Drug: Lopressor 5 mg Route: IVP; Site: right antecubital; rb1 08:01 Follow up: Response: No adverse reaction; BP 136/102 P 138 rb1 08:09 Drug: Magnesium Sulfate 1 grams {Note: Had to wait for pharmacy to bring it to the rb1 floor. The Pyxis would open but the bin was empty..} Route: IVPB; Infused Over: 1 hrs; Site: right antecubital; 09:10 Follow up: Response: No adverse reaction; IV Status: Completed infusion rb1 08:48 Drug: Lopressor 5 mg {Note: BP 141/98 P 97.} Route: IVP; Site: right antecubital; rb1 09:15 Follow up: Response: No adverse reaction; Blood pressure is lowered rb1 08:48 Drug: Lopressor 25 mg Route: PO; rb1 09:15 Follow up: Response: No adverse reaction rb1 08:56 Drug: Lakeside 10 mg-325 mg 1 tabs Route: PO; rb1 09:25 Follow up: Response: No adverse reaction; Pain is decreased rb1 09:30 Drug: Potassium Chloride 40 mEq Route: PO; rb1 10:00 Follow up: Response: No adverse reaction rb1 Disposition: 11:31 Co-signature as Attending Physician, Michael Erwin MD. rn Disposition: 12/02/17 09:27 Hospitalization ordered by Marvin Loza for Observation. Preliminary diagnosis are Chronic obstructive pulmonary disease with (acute) exacerbation, Atrial fibrillation and flutter. - Bed requested for Telemetry/MedSurg (observation). - Status is Observation. rb1 - Condition is Stable. - Problem is new. - Symptoms have improved. UTI on Admission? No Signatures: Dispatcher [employer] Clarissa Kirby, ZENON-C ACETALDEHYDE CONVERTER OPERATOR-Quin Perkins RN RN iw Nieto, Roman, MD MD rn Barber, Rebecca, RN Cristina Shelton RN RN df Corrections: (The following items were deleted from the chart) 09:40 09:27 Hospitalization Ordered by Marvin Loza DO for Observation. Preliminary df diagnosis is Chronic obstructive pulmonary disease with (acute) exacerbation; Atrial fibrillation and flutter. Bed requested for Telemetry/MedSurg (observation). Status is Observation. Condition is Stable. Problem is new. Symptoms have improved. UTI on Admission? No. kb 10:49 09:40 12/02/2017 09:27 Hospitalization Ordered by Marvin Loza DO for Observation. rb1 Preliminary diagnosis is Chronic obstructive pulmonary disease with (acute) exacerbation; Atrial fibrillation and flutter. Bed requested for Telemetry/MedSurg (observation). Status is Observation. Condition is Stable. Problem is new. Symptoms have improved. UTI on Admission? No. df
[2017-12-02] MEDS ORDERED: POTASSIUM CL SA 10 MEQ TAB PO ONE (09:50)
[2017-12-02] MEDS ORDERED: ACETAMINOPHEN 500 MG TAB PO PRN (09:54)
[2017-12-02] MEDS ORDERED: ONDANSETRON 4 MG/2 ML VIAL IV PRN (09:54)
--- NOTE | 2017-12-02 10:19 | RAD REPORT ---
EXAM DESCRIPTION: RAD - Chest Single View - 12/02/2017 9:37 am CLINICAL HISTORY: DYSPNEA Chest pain. COMPARISON: Chest Single View dated 11/07/2017; Chest Single View dated 10/31/2017; Chest Single View d ated 08/12/2017; Chest Single View dated 06/17/2017; Thorax Wo Con dated 10/31/2017 FINDINGS: Portable technique limits examination quality. Consolidation of the right upper lobe is noted, likely representing postobstructive pneumonitis. [place] ent has a known large malignancy in this region. Bilateral pulmonary opacities are also tendon likely representing pulmonary edema. The heart is mildly moderately enlarged.Hardware is present in the cer vical spine.
--- NOTE | 2017-12-02 10:35 | P.HP ---
Certification for Inpatient Patient admitted to: Observation With expected LOS: <2 Midnights Patient will require the following post-hospital care: None Practitioner: I am a practitioner with admitting privileges, knowledge of patient current condition, hospital course, and medical plan of care. Services: Services provided to patient in accordance with Admission requirements found in Title 42 Section 412.3 of the Code of Federal Regulations Patient History Date of Service: 12/02/17 Primary Care Provider: Dr. Patel; Pulm-Dr. Silva; Cardiology-Dr. Franco Reason for admission: Shortness of breath History of Present Illness: 67-year-old female present emergency room with increasing shortness of breath and congestion. Patient recently hospitalized on 10/31/2017 through 11/02/2017 for similar issues. At that time she had an abnormal CT showing a 5.5 cm opacity within the medial right upper lobe along with mediastinal lymphadenopathy. Since that time the patient had a recent bronchoscopy. Results were inconclusive. She went to see her svp digital sales food & cooking recently. Pulmonology suspects this may be infectious rather than neoplastic. The patient was to start antibiotic therapy. The patient came to the ER with increasing shortness of breath. No fever, chills noted. No significant chest pain noted In the ER patient was evaluated. White count 8.9, hemoglobin 11.8. Sodium 139 , potassium 3.2, BUN of 11, creatinine 0.72 GFR of 84. Troponin 0.05. BNP 6081. Chest x-ray shows consolidation to the right upper lobe likely postobstructive pneumonia. Pulmonary edema also suspected. Patient has a history of atrial fibrillation on chronic anti coagulation therapy. Patient did have accelerated heart rate in was given Lopressor. This improved. Patient was admitted for further treatment. When I saw the patient ER, she did not appear in any distress. Patient with history of COPD, oxygen and steroid dependent, atrial fibrillation on chronic anti coagulation therapy-Xarelto, rheumatoid arthritis. Patient reports that she saw her svp digital sales food [employer] cooking in [place] yesterday. She was to have started Cefpodoxime 200 mg twice daily. She reports that she was to follow up with her sv[employer] digital [employer] cooking in 1 week. Her [employer] digital [employer] cooking feels that the consolidation in her lawn is likely infectious rather than neoplastic. If this did not improve the patient would require repeat CT scan to further address. Allergies meperidine HCl [From Demerol] Allergy (Intermediate, Verified 10/31/17 22:53) Itching/Hives/Rash cephalexin [From Keflex] Allergy (Verified 10/31/17 22:55) Itching/Hives/Rash ciprofloxacin Allergy (Verified 11/01/17 19:32) Hives/Rash iodine Allergy (Verified 10/31/17 22:56) Itching/Hives/Rash itraconazole [From Sporanox] Allergy (Verified 10/31/17 22:57) Hives/Rash morphine Allergy (Verified 10/31/17 22:56) Itching/Hives/Rash Penicillins Allergy (Verified 10/31/17 22:57) Itching/Hives/Rash Home medications list reviewed: Yes Home Medications: Sulfasalazine [Sulfazine] 2 tab PO BID 09/10/11 Leflunomide [Arava] 20 mg PO DAILY #30 11/27/16 Mometasone Furoate [Nasonex] 2 spr NS DAILY #1 11/27/16 cloNIDine HCl [Clonidine HCl] 0.2 mg PO BID #60 11/27/16 Duloxetine [Cymbalta *] 60 mg PO DAILY 06/17/17 Ipratropium Mdi [Atrovent Hf Inhaler*] 1 puff IH BID 06/17/17 Budesonide [Pulmicort*] 2 puff IH BID PRN 08/12/17 Hydrocodone Bit/Acetaminophen [Hydrocodon-Acetaminophn 10-325] 1 each PO Q6H PRN 08/12/17 Omeprazole [Prilosec] 40 mg PO BID 08/12/17 Rivaroxaban [Xarelto*] 20 mg PO DAILY 08/12/17 predniSONE [Deltasone*] 10 mg PO DAILY 08/12/17 Amitriptyline [Elavil*] 50 mg PO BID 10/31/17 Diltiazem HCl [Cartia Xt] 240 mg PO DAILY 10/31/17 Pirfenidone [Esbriet] 3 cap PO SEECOM 10/31/17 Propafenone HCl [Propafenone HCl ER] 325 mg PO BID 10/31/17 Ibandronate Sodium [Boniva] 150 mg PO SEECOM 11/01/17 Arformoterol Tartrate [Brovana] 2 ml IH BID #60 vial.neb 11/02/17 Benzonatate [Tessalon Perle*] 200 mg PO TID PRN #15 cap 11/02/17 Smz./Tmp. [Bactrim Ds 800 MG/160 MG] 1 tab PO BID #14 tab 11/02/17 predniSONE [Prednisone*] 20 mg PO SEECOM #5 tab 11/02/17 - Past Medical/Surgical History Diabetic: No -: Rheumatoid Arthritis -: Interstitial Lung Disease -: Obstructive sleep apnea -: [place] -: Osteopenia -: Hyperlipidemia -: COPD, end-stage, oxygen/steroid dependent -: Atrial fibrillation on chronic anti coagulation -: GERD with hiatal hernia -: Depression -: Tonsilectomy -: Appendectomy, Kelle -: Hysterectomy -: Multiple ganglion cyst removal -: Knee Replacement rohini -: Tendon repair bilateral wrist -: Knuckle removal in toes on R foot/hands -: Multiple bursectomy excision Psychosocial/ Personal History: Patient is a . - Family History Sister -: Hypertension, Lung disease, Other (see notes) Notes: rotoscoliasis, sleep apnea, hyperlipidemia Brother -: Hypertension, Diabetes, Other (see notes) Notes: gout, hyperlipidemia Mother -: Hypertension, Cancer Notes: klatskin tumor Father -: Heart disease, Hypertension, Lung disease, Diabetes, Cancer, Other (see notes ) Notes: lung cancer, gout - Social History Smoking Status: Unknown if ever smoked Alcohol use: Yes CD- Drugs: No Caffeine use: Yes Place of Residence: Home Review of Systems General: As per HPI Eyes: Unremarkable ENT: Nose Congestion, As per HPI Respiratory: Cough, Shortness of Breath, SOB with Excertion, Sputum, As per HPI Cardiovascular: As per HPI Gastrointestinal: Unremarkable Genitourinary: Unremarkable Musculoskeletal: Unremarkable Integumentary: Unremarkable Neurological: Unremarkable Lymphatics: Unremarkable Physical Examination - Physical Exam General: Alert, In no apparent distress, Oriented x3, Cooperative HEENT: Atraumatic, Normocephalic, Other (Increase mucus production noted.) Neck: Supple, No Thyromegaly Respiratory: Crackles/rales (Bilateral) Cardiovascular: Irregular heart rate/rhythm (Atrial fibrillation, rate controlled) Gastrointestinal: Normal bowel sounds, Soft and benign, Non-distended, No tenderness, No masses, No rebound, No guarding Musculoskeletal: No erythema, No tenderness, No warmth Integumentary: No tenderness/swelling, No erythema, No warmth, No cyanosis Neurological: Normal speech, Normal strength at 5/5 x4 extr, Normal tone, Normal affect - Studies Laboratory Data (last 24 hrs) 12/02/17 07:43: PT 29.1 H, INR 2.44, APTT 57.8 H 12/02/17 07:43: WBC 8.9, Hgb 11.8 L, Hct 36.3, Plt Count 286 12/02/17 07:43: Sodium 139, Potassium 3.2 L, BUN 11, Creatinine 0.70, Glucose 105, Magnesium 1.7 L Assessment and Plan - Plan Impression: Shortness of breath secondary to COPD exacerbation with history of COPD, oxygen/ steroid dependent Right upper lobe consolidation status post recent bronchoscopy, pathology inconclusive. Likely infectious versus neoplastic. Atrial fibrillation on chronic anti coagulation therapy-Xarelto Rheumatoid arthritis GERD with hiatal hernia Depression with anxiety Chronic pain Hypertension Plan: Patient with COPD exacerbation with history of COPD, oxygen/steroid dependent. Will provide IV steroids and COPD treatment. Patient stable on oxygen at this time. Will consult pulmonology to further evaluate and assess. Patient with complicated history of right upper lobe consolidation. Patient with recent bronchoscopy with pathology inconclusive. Patient recently saw her svp digital sales food [employer] cooking in [place] yesterday. She was placed on antibiotic therapy as pulmonology feels that the consolidation is likely infectious versus neoplastic , if this does not improve patient may require repeat CT scan to further address. Case discussed with pulmonology here. Pulmonology feels that the patient has gotten worse since her last hospitalization here. Pulmonology feels that the patient should be transferred to higher level of care center with her sv[employer] up in [place] to further assess. Patient will likely require IV antibiotic therapy and further evaluation with likely repeat of bronchoscopy or CV surgery evaluation for her condition. Case discussed at length with ER physician. Will try to make arrangements for transfer in the ER. - Advance Directives Does patient have a Living Will: Yes Does patient have a Durable POA for Healthcare: Yes - Code Status/Comfort Care Code Status Assessed: Yes (Patient full code.) Time Spent Managing Pts Care (In Minutes): 55
[2017-12-02 11:14] VITALS: BMI 39.2
[2017-12-02] MEDS ORDERED: Meropenem 1,000 MG in NA CHLORIDE 0.9% 100 ML IV SCH (12:00)
[2017-12-02] MEDS ORDERED: VANCOMYCIN 2 GM in NA CHLORIDE 0.9% 500 ML IVPB SCH (12:00)
[2017-12-02] MEDS ORDERED: PIRFENIDONE PO SCH (14:15)
[2017-12-02] MEDS ORDERED: CEFPODOXIME PROXETIL PO SCH (14:15)
[2017-12-02 14:37] LABS: CKMB Creatine Kinase MB < 1.0 ng/mL (0.3-3.6); Creatine Phosphokinase 26 U/L (26-192); Troponin I 0.03 ng/mL (0.0-0.045)
[2017-12-02] MEDS: ALBUTEROL 2.5 MG/3 ML NEB SOL NEB PRN ×2 (15:28→21:49)
[2017-12-02] MEDS: IPRATROPIUM BROM 0.5MG/2.5ML NEB PRN ×2 (15:28→21:49)
[2017-12-02] MEDS ORDERED: RIVAROXABAN 20 MG TABLET PO SCH (17:00)
[2017-12-02 17:03] LABS: Urine Appearance CLEAR; Urine Bilirubin NEGATIVE (NEG); Urine Blood NEGATIVE (NEG); Urine Color YELLOW; Urine Glucose NEGATIVE (NEG); Urine Protein NEGATIVE (NEG); Urine Specific Gravity <=1.005 (1.005-1.030); Urine Urobilinogen 0.2 mg/dL (0.2-1.0)
[2017-12-02 17:32] LABS: Urine Bacteria <20 /HPF (<20); Urine Culture Reflex Order NOT NEEDED; Urine RBC <5 /HPF (NONE SEEN)
[2017-12-02] MEDS: METHYLPREDNISOLONE 40 MG INJ IV SCH (18:15)
[2017-12-02] MEDS: CEFPODOXIME PROXETIL 100 MG PO SCH (20:16)
[2017-12-02] MEDS: HOME MED 1 EA UNK PO SCH (20:16)
[2017-12-02] MEDS: RHYTHMOL PO SCH (20:18)
[2017-12-02] MEDS: AMITRIPTYLINE 50 MG TAB PO SCH (20:22)
[2017-12-02] MEDS ORDERED: DULOXETINE 30 MG CAP PO SCH (21:00)
[2017-12-02] MEDS ORDERED: Meropenem 1000 MG/VIAL IV SCH (21:00)
[2017-12-02] MEDS: HYDRALAZINE HCL 20 MG/ML VIAL IV PRN (21:31)
[2017-12-02] MEDS: ARFORMOTEROL TARTRATE 15 MCG/2 ML VIAL.NEB NEB SCH (21:49)
[2017-12-02 22:43] LABS: CKMB Creatine Kinase MB 1.5 ng/mL (0.3-3.6); Troponin I 0.02 ng/mL (0.0-0.045)
[2017-12-02] MEDS: HYDROCODONE/APAP 10/325 TAB PO PRN (23:00)
[2017-12-03] MEDS: METHYLPREDNISOLONE 40 MG INJ IV SCH ×2 (01:39→09:00)
[2017-12-03 05:58] LABS: Potassium 4.1 mmol/L (3.5-5.1)
[2017-12-03 06:22] LABS: Absolute Lymphocytes (CBC) 0.5 K/uL (0.7-4.9); Absolute Monocytes 0.4 K/uL (0.1-1.3); Absolute Neutrophil 8.1 K/uL (1.8-8.0); Basophils % 0.2 % (0-1.3); Hematocrit 36.4 % (36.0-45.0); Lymphocytes % 5.3 % (15.3-44.8); MCH 27.2 pg (27.0-35.0); MCV 82.9 fL (80-100); MPV 8.3 fL (7.6-11.3); Monocytes % 4.8 % (3.3-12.3); RBC Red Blood Cell Count 4.39 M/uL (3.86-4.86)
[2017-12-03] MEDS ORDERED: PANTOPRAZOLE 40MG TABLET PO SCH (06:30)
[2017-12-03] MEDS: HOME MED 1 EA UNK PO SCH (06:39)
--- NOTE | 2017-12-03 08:20 | RAD REPORT ---
EXAM DESCRIPTION: RAD - Chest Pa And Lat (2 Views) - 12/03/2017 7:17 am CLINICAL HISTORY: Right upper lobe mass, pneumonia COMPARISON: December 02 portable chest, October 31 CT chest TECHNIQUE: PA and lateral views of the chest were obtained. FINDINGS: The lungs are slightly underinflated. Patient has a known right upper lobe suprahilar mass . There is right upper lung field opacification matching the prior study. There is some elevation of the minor fissure. Patient likely has a component of consolidation or postobstructive pneumonia prese nt. A component of obstructive right upper lobe atelectasis also present. Patient has interstitial and patchy alveolar opacities in both lung bases, greater on the right. This is probably also patchy pneumonia. When adjusting for her the improved film technique and inspirator y effort, lung base pneumonia changes are stable. Mild cardiomegaly is present. Vasculature is mildly prominent but stable. Trachea is midline. No pn eumothorax or large pleural effusion. IMPRESSION: Right upper lobe postobstructive pneumonia and partial atelectasis from lung mass has no t change from prior day study. Patchy bilateral lung base pneumonia changes also without substantial change from prior day study.
[2017-12-03] MEDS: ARFORMOTEROL TARTRATE 15 MCG/2 ML VIAL.NEB NEB SCH ×2 (08:35→20:34)
[2017-12-03 08:48] LABS: Anisocytosis 1+; Blood Morphology Comment NOTED (NOT SEEN); Platelet Estimate ADEQ; Urine White Blood Cell Casts OK
--- NOTE | 2017-12-03 08:55 | EKG ---
Test Date: 2017-12-02 Test Time: 07:34:07 Matchbook Assembler: CASTILLO MEASUREMENT RESULTS: Intervals: Rate: 141 VA: QRSD: 84 QT: 314 QTc: 480 [place]: P: VA: QRS: 19 T: 172 INTERPRETIVE STATEMENTS: Atrial fibrillation with rapid ventricular response ST & T wave abnormality, consider lateral ischemia or digitalis effect Abnormal ECG Compared to ECG 10/31/2017 17:34:58 Possible ischemia now present Sinus rhythm no longer present Atrial premature complex(es) no longer present ST (T wave) deviation still present Electronically Signed On 12-03-17 08:52:58 CDT by Jarod Franco
[2017-12-03] MEDS: AMITRIPTYLINE 50 MG TAB PO SCH ×2 (09:00→20:13)
[2017-12-03] MEDS: PROPAFENONE HCL 325 MG PO SCH ×2 (09:00→20:26)
[2017-12-03] MEDS: MOMETASONE FUROATE NS SCH (09:00)
[2017-12-03] MEDS ORDERED: GUAIFENESIN 600 MG SA TAB PO SCH (09:00)
[2017-12-03] MEDS ORDERED: CLONIDINE HCL 0.2 MG PO SCH (09:00)
[2017-12-03] MEDS ORDERED: VANCOMYCIN 1 GM in NA CHLORIDE 0.9% 500 ML IVPB SCH (09:00)
[2017-12-03] MEDS ORDERED: Meropenem 1000 MG/VIAL IV SCH (09:00)
[2017-12-03] MEDS: DULOXETINE 60 MG PO SCH (09:00)
--- NOTE | 2017-12-03 09:35 | P.PN ---
Subjective Date of Service: 12/03/17 Primary Care Provider: Dr. Patel; Pulm-Dr. Silva; Cardiology-Dr. Franco Chief Complaint: Shortness of breath Subjective: Other (Patient still with increase cough, congestion. Patient on oxygen. Slight improvement.) Physical Examination - Vital Signs Temperature: 98.0 F Blood Pressure: 140/87 Pulse: 114 Respirations: 20 Pulse Ox (%): 95 - Physical Exam General: Alert, In no apparent distress, Oriented x3, Cooperative HEENT: Atraumatic Neck: Supple Respiratory: Crackles/rales (Bilateral), Expiratory wheezes, Other (Overall slight improvement) Cardiovascular: Irregular heart rate/rhythm (Atrial fibrillation, rate slightly increased) Gastrointestinal: Normal bowel sounds, Soft and benign, Non-distended, No tenderness, No masses, No rebound, No guarding Musculoskeletal: No erythema, No tenderness, No warmth Integumentary: No tenderness/swelling, No erythema, No warmth, No cyanosis Neurological: Normal speech, Normal strength at 5/5 x4 extr, Normal tone, Normal affect - Studies Medications List Reviewed: Yes Assessment & Plan Discharge Plan: Other (Home verses transfer) Plan to discharge in: 24 Hours Physician Review Additional Text: Impression: Shortness of breath secondary to COPD exacerbation with history of COPD, oxygen/ steroid dependent Right upper lobe consolidation status post recent bronchoscopy, pathology inconclusive. Likely infectious versus neoplastic. Must consider postobstructive pneumonia and atelectasis. Patient with history of lung cancer. Atrial fibrillation on chronic anti coagulation therapy-Xarelto Rheumatoid arthritis GERD with hiatal hernia Depression with anxiety Hypertension Chronic pain Plan: Case discussed at length with pulmonology. Pulmonology recommended transfer to higher level of care center with her pulmonology up in [place] to further address. I was able get in contact with pulmonology on-call([place]). Case discussed at length with the pulmonary cash control specialist physician. Recommendation was to continue COPD treatment and IV antibiotic therapy and reassess tomorrow. Her blood donor recruiter will call tomorrow to reassess. Will consider at that time transfer to higher level of care center to consider further evaluation likely with bronchoscopy and possible CV surgery evaluation. Patient did not tolerate IV vancomycin yesterday. Vancomycin has been discontinued. Will try IV mayor in today. Patient on oral antibiotic therapy that was started by her blood donor recruiter. Will restart medication for her atrial fibrillation. Patient on chronic anti coagulation therapy. Patient requested cardiology evaluation to further address her condition. Cardiology consulted. Patient me truly sees cardiology. Will continue with PPI a for GERD. Continue her other medications for depression, hypertension and chronic pain. Time Spent Managing Pts Care (In Minutes): 55
[2017-12-03] MEDS: CEFPODOXIME PROXETIL 100 MG PO SCH (10:18)
[2017-12-03] MEDS: LEFLUNOMIDE 20 MG PO SCH (10:23)
[2017-12-03] MEDS: RHYTHMOL PO SCH ×2 (10:23→20:11)
--- NOTE | 2017-12-03 10:24 | P.CNS ---
Date of Consult: 12/03/17 Primary Care Provider: Dr. Patel; Pulm-Dr. Silva; Cardiology-Dr. Franco Chief Complaint: Shortness of breath History of Present Illness: Patient is 67 years of age admitted to the hospital with worsening dyspnea she was just recently discharged did undergo an outpatient bronchoscopy that was nondiagnostic patient was found to have a mass in the right upper lobe up on a comparison this appears to be acute appeared within the last month or so she was also seen by thoracic surgeon and hat stock laminating machine operator who felt that she needed some outpatient antibiotics patient has this horrible cough mucoid sputum no fever chills chest pain denies a complete right upper lobe collapse with some narrowing on her bronchoscopy Allergies meperidine HCl [From Demerol] Allergy (Intermediate, Verified 10/31/17 22:53) Itching/Hives/Rash cephalexin [From Keflex] Allergy (Verified 10/31/17 22:55) Itching/Hives/Rash ciprofloxacin Allergy (Verified 11/01/17 19:32) Hives/Rash iodine Allergy (Verified 10/31/17 22:56) Itching/Hives/Rash itraconazole [From Sporanox] Allergy (Verified 10/31/17 22:57) Hives/Rash morphine Allergy (Verified 10/31/17 22:56) Itching/Hives/Rash Penicillins Allergy (Verified 10/31/17 22:57) Itching/Hives/Rash Home Medications: Sulfasalazine [Sulfazine] 2 tab PO BID 09/10/11 Leflunomide [Arava] 20 mg PO DAILY #30 11/27/16 Mometasone Furoate [Nasonex] 2 spr NS DAILY #1 11/27/16 cloNIDine HCl [Clonidine HCl] 0.2 mg PO BID #60 11/27/16 Duloxetine [Cymbalta *] 60 mg PO DAILY 06/17/17 Ipratropium Mdi [Atrovent Hf Inhaler*] 1 puff IH BID 06/17/17 Budesonide [Pulmicort*] 2 puff IH BID PRN 08/12/17 Hydrocodone Bit/Acetaminophen [Hydrocodon-Acetaminophn 10-325] 1 each PO Q6H PRN 08/12/17 Omeprazole [Prilosec] 40 mg PO BID 08/12/17 Rivaroxaban [Xarelto*] 20 mg PO DAILY 08/12/17 predniSONE [Deltasone*] 10 mg PO DAILY 08/12/17 Amitriptyline [Elavil*] 50 mg PO BID 10/31/17 Diltiazem HCl [Cartia Xt] 240 mg PO DAILY 10/31/17 Pirfenidone [Esbriet] 3 cap PO SEECOM 10/31/17 Propafenone HCl [Propafenone HCl ER] 325 mg PO BID 10/31/17 Ibandronate Sodium [Boniva] 150 mg PO SEECOM 11/01/17 Arformoterol Tartrate [Brovana] 2 ml IH BID #60 vial.neb 11/02/17 Benzonatate [Tessalon Perle*] 200 mg PO TID PRN #15 cap 11/02/17 Cefpodoxime Proxetil 2 tab PO Q12H 12/02/17 - Past Medical/Surgical History Diabetic: No -: Rheumatoid Arthritis -: Interstitial Lung Disease -: Obstructive sleep apnea -: [place] -: Osteopenia -: Hyperlipidemia -: COPD, end-stage, oxygen/steroid dependent -: Atrial fibrillation on chronic anti coagulation -: GERD with hiatal hernia -: Depression -: GERD -: depression -: Tonsilectomy -: Appendectomy, Kelle -: Hysterectomy -: Multiple ganglion cyst removal -: Knee Replacement rohini -: Tendon repair bilateral wrist -: Knuckle removal in toes on R foot/hands -: Multiple bursectomy excision Psychosocial/ Personal History: Patient is a . - Family History Sister Medical History: Hypertension, Lung disease, Other (see notes) Notes: rotoscoliasis, sleep apnea, hyperlipidemia Brother Medical History: Hypertension, Diabetes, Other (see notes) Notes: gout, hyperlipidemia Mother Medical History: Hypertension, Cancer Notes: klatskin tumor Father Medical History: Heart disease, Hypertension, Lung disease, Diabetes, Cancer, Other (see notes) Notes: lung cancer, gout - Social History Smoking Status: Unknown if ever smoked Alcohol use: Yes CD- Drugs: No Caffeine use: Yes Place of Residence: Home Review of Systems 10-point ROS is otherwise unremarkable General: Weakness Respiratory: Cough, Shortness of Breath Physical Examination Temp Pulse Resp BP Pulse Ox 98.0 F 114 H 20 140/87 95 12/03/17 09:37 12/03/17 09:37 12/03/17 09:37 12/03/17 09:37 12/03/17 09:37 General: Alert, Oriented x3 HEENT: Atraumatic Neck: Supple Respiratory: Rhonchi/gurgles Cardiovascular: No edema, Normal S1 S2, Irregular heart rate/rhythm Gastrointestinal: Normal bowel sounds, Soft and benign Musculoskeletal: No clubbing, No swelling, Other (Patient has deformities from rheumatoid arthritis) - Problems (1) Atelectasis of right lung Current Visit: Yes Status: Acute Plan: Patient is 67 years of age admitted with shortness of breath she has atelectasis of the right upper lobe and this is progressed complains of a significant cough no fever chills chest pain is no clinical evidence of sepsis white count is normal BNP is elevated continue with meropenem patient has multiple allergies I have added Tylenol with codeine for cough suppression CT scan with contrast recent bronchoscopy showed narrowing of the right upper lobe for pathology some atypical cells patient is currently anti coagulated change of address clerk to p.o. prednisone continue with bronchodilators
[2017-12-03] MEDS: BENZONATATE 100 MG CAP PO PRN ×2 (10:53→17:19)
[2017-12-03] MEDS ORDERED: DIPHENHYDRAMINE 50 MG/ML VIAL IV ONE (11:22)
[2017-12-03] MEDS: HYDROCODONE/APAP 10/325 TAB PO PRN ×2 (11:33→17:20)
[2017-12-03] MEDS: predniSONE 20 MG TAB PO SCH ×2 (11:34→20:10)
[2017-12-03] MEDS ORDERED: cloNIDine HCl 0.1 MG TAB PO SCH (12:00)
--- NOTE | 2017-12-03 12:43 | RAD REPORT ---
EXAM DESCRIPTION: CT - Thorax W/ Con - 12/03/2017 12:27 pm CLINICAL HISTORY: Shortness of breath COMPARISON: Chest films same date, CT chest October 31, 2017 TECHNIQUE: Dynamically enhanced 5 mm thick images of the chest were obtained during administration o f 100 mL non-ionic IV contrast. All CT scans are performed using dose optimization technique as appropriate and may include automated exposure control or mA/KV adjustment according to patient size. FINDINGS: Poorly marginated right suprahilar mass is present. Margins are indistinct from the surrou nding atelectatic lung. The mass is at least 3.5 cm in size. Right upper lobe bronchus is occluded. T here is circumferential compression of right upper lobe vasculature as well. Right upper lobe is full y atelectatic. Pneumonia component is felt to be minimal. Small amount of pleural fluid is seen adjac ent to the collapsed right upper lobe. Minimal amount of pleural fluid is seen in the posterior gutte r on the right. There is interstitial thickening, infiltrate or edema in each lung base similar to e October 31 imaging. In the posterolateral left upper lobe abutting the fissure (image 10/54) there is a 15 millimeter area of parenchymal opacification fractionally increased from October. This could be a metastatic mass or a small area of infiltrate. Scarring changes are present in the left lung field. No significant left pleural effusion. No pneumothorax. No chest wall mass or abnormal axillary lymph adenopathy. Abnormal mediastinal lymph nodes are present. There are 15 millimeter lymph nodes at the thoracic inl et. A 19 millimeter right mediastinal lymph node is present anterior to the SVC. A 3.6 centimeter lym ph node is present in the retrocaval-pretracheal space. Approximately 2.6 centimeter subcarinal lymph node is present. There are additional small hilar lymph nodes. IMPRESSION: Right suprahilar lymph node is present occluding the right upper lobe bronchus and narro wing right upper lobe vasculature. The right upper lobe malignant appearing mass is poorly demarcated estimated at least 3.5 cm in size. There is associated malignant-appearing mediastinal lymphadenopathy. Complete atelectasis of the right upper lobe. Presence of a postobstructive pneumonia is not excluded . Most of the opacification is from atelectasis. Small amount of pleural fluid surrounds the atelectatic lung. A 15 millimeter area of ill-defined opacification in the left upper lobe could be infiltrate or possi josh even metastatic disease. The right upper lobe mass is too central and too poorly defined for percutaneous tissue sampling.
[2017-12-03] MEDS: Meropenem 1,000 MG in NA CHLORIDE 0.9% 100 ML IV SCH ×2 (14:00→21:47)
[2017-12-03] MEDS: IPRATROPIUM BROM 0.5MG/2.5ML NEB SCH ×2 (14:32→20:35)
[2017-12-03] MEDS ORDERED: XARELTO 20 MG PO SCH (17:00)
[2017-12-03] MEDS: DILTIAZEM 240 MG PO SCH (17:17)
[2017-12-03] MEDS: MUCINEX 600 MG PO SCH (20:13)
[2017-12-03] MEDS: CLONIDINE 0.2 MG PO SCH (20:13)
[2017-12-04] MEDS: IPRATROPIUM BROM 0.5MG/2.5ML NEB SCH ×5 (01:45→19:49)
[2017-12-04 06:15] LABS: Absolute Lymphocytes (CBC) 0.9 K/uL (0.7-4.9); Absolute Monocytes 0.8 K/uL (0.1-1.3); Basophils % 0.2 % (0-1.3); Eosinophils % 0.2 % (0-4.4); Hematocrit 32.4 % (36.0-45.0); MCH 27.5 pg (27.0-35.0); MCV 82.3 fL (80-100); Monocytes % 7.4 % (3.3-12.3); RBC Red Blood Cell Count 3.94 M/uL (3.86-4.86)
[2017-12-04 06:37] LABS: Potassium 4.4 mmol/L (3.5-5.1)
[2017-12-04] MEDS: ARFORMOTEROL TARTRATE 15 MCG/2 ML VIAL.NEB NEB SCH ×3 (08:00→19:49)
[2017-12-04] MEDS: Meropenem 1,000 MG in NA CHLORIDE 0.9% 100 ML IV SCH ×2 (08:26→23:41)
[2017-12-04] MEDS: HYDROCODONE/APAP 10/325 TAB PO PRN ×2 (08:26→23:11)
[2017-12-04] MEDS: AMITRIPTYLINE 50 MG TAB PO SCH ×2 (08:27→21:00)
[2017-12-04] MEDS: LEFLUNOMIDE 20 MG PO SCH (08:28)
[2017-12-04] MEDS: DILTIAZEM 240 MG PO SCH (08:29)
[2017-12-04] MEDS: RHYTHMOL PO SCH ×2 (08:29→21:10)
[2017-12-04] MEDS: DULOXETINE 60 MG PO SCH (08:30)
[2017-12-04] MEDS: CLONIDINE 0.2 MG PO SCH ×2 (08:31→21:12)
[2017-12-04] MEDS: MOMETASONE FUROATE NS SCH (08:32)
[2017-12-04] MEDS ORDERED: HOME MED 1 EA UNK NAS SCH (09:00)
[2017-12-04] MEDS: MUCINEX 600 MG PO SCH ×2 (09:00→21:00)
[2017-12-04] MEDS: PROPAFENONE HCL 325 MG PO SCH ×2 (09:00→21:00)
[2017-12-04] MEDS: predniSONE 20 MG TAB PO SCH ×2 (09:32→21:10)
--- NOTE | 2017-12-04 12:00 | P.PN ---
Subjective Date of Service: 12/04/17 Primary Care Provider: Dr. Patel; Pulm-Dr. Silva; Cardiology-Dr. Franco Chief Complaint: Shortness of breath Subjective: Other (Patient doing slightly better. Still with cough and congestion.) Physical Examination - Vital Signs Temperature: 98.0 F Blood Pressure: 125/91 Pulse: 130 Respirations: 20 Pulse Ox (%): 98 - Physical Exam General: Alert, In no apparent distress, Oriented x3, Cooperative HEENT: Atraumatic Neck: Supple Respiratory: Crackles/rales (Bilateral but improved), Expiratory wheezes ( Bilateral but improved) Cardiovascular: Irregular heart rate/rhythm (Atrial fibrillation, rate slightly elevated) Gastrointestinal: Normal bowel sounds, Soft and benign, Non-distended, No tenderness, No masses, No rebound, No guarding Musculoskeletal: No erythema, No tenderness, No warmth Integumentary: No tenderness/swelling, No erythema, No warmth, No cyanosis Neurological: Normal speech, Normal strength at 5/5 x4 extr, Normal tone, Normal affect - Studies Microbiology Data (last 24 hrs): 12/02/17 11:45 Sputum Gram Stain - Final 12/02/17 11:45 Sputum Culture & Sensitivity - Final Acinetobacter Michelle/Haem 12/02/17 11:50 Blood - Blood Anaerobic Blood Culture - Final Medications List Reviewed: Yes Assessment & Plan Discharge Plan: Transfer ([facility]) Plan to discharge in: 24 Hours Physician Review Additional Text: Impression: Shortness of breath secondary to COPD exacerbation with acute on chronic respiratory failure with history of COPD, oxygen/steroid dependent Right upper lobe consolidation status post recent bronchoscopy, pathology inconclusive. Likely infectious versus neoplastic. Sputum culture positive for Acinetobacter. Possible postobstructive pneumonia and complete atelectasis atelectasis to right upper lobe. No history of lung cancer. Atrial fibrillation on chronic anti coagulation therapy-Xarelto. History of recent cardiac ablation Rheumatoid arthritis on immunosuppressive/disease modifying therapy GERD with hiatal hernia Depression with anxiety Hypertension Chronic pain Plan: Case discussed at length with pulmonology-Dr. Calvo. Dr. Calvo recommends transfer to higher level of care center for endoscopic bronchoscopy and continued IV antibiotic therapy. So for sputum culture positive for Acinetobacter. Case discussed at length with her brand manager-Dr. Silva out of [facility]. Pulmonology mentions patient is immunocompromised with her history of rheumatoid arthritis on immunosuppressive/disease modifying therapy. He suspects abnormal CT scan finding is likely infectious. Patient with recent bronchoscopy showing no malignant cells. Patient has multiple allergies to antibiotic therapy therefore will continue with IV meropenem which is sensitive to current sputum culture. He agrees with transfer to higher level of care center. Plan is to transfer patient to [facility] with Dr. Silva as accepting physician. He plans for endoscopic bronchoscopy in the next couple of days and to continue with IV antibiotic therapy. Continue with COPD treatment. Patient on steroids. Patient with atrial fibrillation on chronic anti coagulation therapy. Will discontinue Xarelto and change to Lovenox in anticipation for bronchoscopy. Cardiology recommends to hold Xarelto at least 2 days before bronchoscopy done. Patient with history of recent ablation therapy. No intervention needed at this time. Will continue with her medications for GERD/depression and chronic pain. I will turn the service over to Dr. Rahman tomorrow. I will go over the plan of care with her. Time Spent Managing Pts Care (In Minutes): 55
[2017-12-04] MEDS: BENZONATATE 100 MG CAP PO PRN ×2 (13:50→23:12)
--- NOTE | 2017-12-04 14:36 | CON ---
Date of Consultation: 12/04/2017 Reason For Consultation: Atrial fibrillation. History Of Present Illness: Mrs. Santacruz is a 67-year-old white woman, very well known to me from pre vious office visit and admission, came in with COPD exacerbation, atrial fibrillation at a rate of 10 0. Her atrial fibrillation history is complicated. She has failed most medical therapy, remains on Rythmol 325 b.i.d. as well as Xarelto. Dr. Potter just recently did an ablation on her 6 weeks ago. It is not uncommon for atrial fibrillation to persist for up to 3 months after the atrial fibrillatio n after which if it persisted that would be considered as failure. She came in mostly with COPD, but was found on a chest x-ray and CT of the chest to have postobstructive pneumonia, lung mass and lymp hadenopathy. Dr. Calvo is involved. No cardiac symptoms reported. Past Medical History: Include ADD, rheumatoid arthritis, CAD, status post PCI, hypertension, depress ion, and COPD. Allergies: DEMADEX, MORPHINE, CIPRO, AND IODINE. Medications: At home include Elavil, Cartia, inhalers, prednisone, Xarelto, Rythmol, and clonidine. Family History: Noncontributory. Review of Systems: 10-point review of systems is negative. Social History: Negative. Physical Examination: Vital signs: Stable. She was in atrial fibrillation, rate of 100. She was afebrile. No acute dist ress HEENT: Negative. Neck: Supple without any bruit, lymphadenopathy, JVD, or thyromegaly. Chest: Clear to auscultation and percussion. Cardiac: Showed atrial fibrillation. No gallops or rubs. Abdomen: Benign. Extremities: Revealed no clubbing, cyanosis, or edema. Distal pulses were adequate at the dorsalis pedis and posterior tibial. Skin: Normal. Diagnostic Data: She was in atrial fibrillation. INR was 2.44. Troponin 0.05, BNP is 6081. Echoca rdiogram in May 2017 was negative. Impression And Plan: 1.Chronic atrial fibrillation on Rythmol and Xarelto, status post ablation 6 weeks ago. We will marilynn ch on Rythmol and Xarelto. It usually may take up to 3 months before we will consider ablation as fa ilure. For now we will continue her medical regimen. Obviously, Xarelto needs to be held for at [facility] 2 days prior to any lung surgery or biopsy. I will discuss the case further with Dr. Loza and Maryjane Shaw, but I suggest the patient get lung mass workup done as soon as possible. 2.Chronic coronary artery disease. 3.Rheumatoid arthritis. 4.Attention deficit disorder. 5.Chronic obstructive pulmonary disease exacerbation. 6.Depression. 7.Hypertension. 8.Allergy to iodine among others. 9.Elevated BNP and troponin secondary to the atrial fibrillation and chronic obstructive pulmonary d isease. We will continue present regimen otherwise. The case was discussed with Dr. Loza, pulmono logy and nurses with the patient. 45 minutes was spent in the care of Mrs. Santacruz. ABEL/KSENIA Voice ID: [id number] Report ID: [id number]
[2017-12-04] MEDS: Enoxaparin 120 MG/0.8 ML SYR SQ SCH (21:09)
[2017-12-05] MEDS: IPRATROPIUM BROM 0.5MG/2.5ML NEB SCH ×4 (01:42→19:42)
[2017-12-05 04:26] LABS: Absolute Lymphocytes (CBC) 0.6 K/uL (0.7-4.9); Absolute Monocytes 0.8 K/uL (0.1-1.3); Absolute Neutrophil 11.9 K/uL (1.8-8.0); Basophils % 1.8 % (0-1.3); Eosinophils % 0.3 % (0-4.4); Hematocrit 34.5 % (36.0-45.0); Lymphocytes % 4.2 % (15.3-44.8); MCH 26.8 pg (27.0-35.0); MCV 83.4 fL (80-100); MPV 7.9 fL (7.6-11.3); Monocytes % 5.8 % (3.3-12.3); RBC Red Blood Cell Count 4.14 M/uL (3.86-4.86)
[2017-12-05 04:44] LABS: Potassium 4.5 mmol/L (3.5-5.1)
[2017-12-05] MEDS: ARFORMOTEROL TARTRATE 15 MCG/2 ML VIAL.NEB NEB SCH ×2 (07:30→19:42)
--- NOTE | 2017-12-05 08:27 | P.PN ---
Subjective Date of Service: 12/05/17 Primary Care Provider: Dr. Patel; Pulm-Dr. Silva; Cardiology-Dr. Franco Chief Complaint: Cough Patient still has severe cough right upper lobe atelectasis on the CT scan scheduled to be transferred no fever or chills Review of Systems Respiratory: Cough, Shortness of Breath Physical Examination - Vital Signs Temperature: 97.1 F Blood Pressure: 148/88 Pulse: 124 Respirations: 20 Pulse Ox (%): 97 - Physical Exam General: Alert, Oriented x3 Respiratory: Expiratory wheezes Cardiovascular: No edema - Studies Microbiology Data (last 24 hrs): 12/02/17 11:45 Sputum Gram Stain - Final 12/02/17 11:45 Sputum Culture & Sensitivity - Final Acinetobacter Michelle/Haem Medications List Reviewed: Yes Assessment & Plan - Problems (Diagnosis) (1) Atelectasis of right lung Current Visit: Yes Status: Acute Plan: Patient as atelectasis of the right upper lobe most likely malignancy doubt infection complaining of persistent cough patient patient will probably need another repeat bronchoscopy with biopsy patient is on bronchodilators reduce the dose of steroids Physician Review Additional Text: Impression: Shortness of breath secondary to COPD exacerbation with acute on chronic respiratory failure with history of COPD, oxygen/steroid dependent Right upper lobe consolidation status post recent bronchoscopy, pathology inconclusive. Likely infectious versus neoplastic. Sputum culture positive for Acinetobacter. Possible postobstructive pneumonia and complete atelectasis atelectasis to right upper lobe. No history of lung cancer. Atrial fibrillation on chronic anti coagulation therapy-Xarelto. History of recent cardiac ablation Rheumatoid arthritis on immunosuppressive/disease modifying therapy GERD with hiatal hernia Depression with anxiety Hypertension Chronic pain Plan: Case discussed at length with pulmonology-Dr. Calvo. Dr. Calvo recommends transfer to higher level of [facility] for endoscopic bronchoscopy and continued IV antibiotic therapy. So for sputum culture positive for Acinetobacter. Case discussed at length with her street light servicer supervisor-Dr. Silva out of [facility]. Pulmonology mentions patient is immunocompromised with her history of rheumatoid arthritis on immunosuppressive/disease modifying therapy. He suspects abnormal CT scan finding is likely infectious. Patient with recent bronchoscopy showing no malignant cells. Patient has multiple allergies to antibiotic therapy therefore will continue with IV meropenem which is sensitive to current sputum culture. He agrees with transfer to higher level of [facility]. Plan is to transfer patient to [facility] with Dr. Silva as accepting physician. He plans for endoscopic bronchoscopy in the next couple of days and to continue with IV antibiotic therapy. Continue with COPD treatment. Patient on steroids. Patient with atrial fibrillation on chronic anti coagulation therapy. Will discontinue Xarelto and change to Lovenox in anticipation for bronchoscopy. Cardiology recommends to hold Xarelto at least 2 days before bronchoscopy done. Patient with history of recent ablation therapy. No intervention needed at this time. Will continue with her medications for GERD/depression and chronic pain. I will turn the service over to Dr. Rahman tomorrow. I will go over the plan of care with her.
[2017-12-05] MEDS: DILTIAZEM 240 MG PO SCH ×2 (09:00→16:20)
[2017-12-05] MEDS: PROPAFENONE HCL 325 MG PO SCH (09:00)
[2017-12-05] MEDS: BENZONATATE 100 MG CAP PO PRN ×2 (09:21→17:53)
[2017-12-05] MEDS: AMITRIPTYLINE 50 MG TAB PO SCH ×2 (09:24→20:42)
[2017-12-05] MEDS: Enoxaparin 120 MG/0.8 ML SYR SQ SCH ×2 (09:24→20:50)
[2017-12-05] MEDS: MOMETASONE FUROATE NS SCH (09:26)
[2017-12-05] MEDS: DULOXETINE 60 MG PO SCH (09:26)
[2017-12-05] MEDS: MUCINEX 600 MG PO SCH ×2 (09:27→20:41)
[2017-12-05] MEDS: LEFLUNOMIDE 20 MG PO SCH (09:28)
[2017-12-05] MEDS: CLONIDINE 0.2 MG PO SCH ×2 (09:30→20:42)
[2017-12-05] MEDS: RHYTHMOL PO SCH ×2 (09:32→20:41)
[2017-12-05] MEDS: HYDROCODONE/APAP 10/325 TAB PO PRN ×2 (09:46→18:52)
[2017-12-05] MEDS: predniSONE 10 MG TAB PO SCH ×2 (09:51→20:43)
[2017-12-05 10:38] LABS: Protime INR 1.34
[2017-12-05] MEDS: GUAIFENESIN/CODEINE 5ML UCUP PO PRN ×2 (11:58→17:54)
[2017-12-05] MEDS: Meropenem 1,000 MG in NA CHLORIDE 0.9% 100 ML IV SCH ×2 (12:23→20:39)
[2017-12-05] MEDS: METOPROLOL TARTRATE 5 MG/5 ML INJ IV PRN (17:56)
--- NOTE | 2017-12-05 18:19 | PN ---
Date of Progress Note: 12/05/2017 Subjective: The patient is seen and examined. Chart reviewed and case discussed with RN and Dr. Calvo. The patient is still having significant shortness of breath. Awaiting transfer to [facility]. Treatment plan explained. All questions answered. Review of Systems: Negative except as above. Medications: List reviewed. Code Status: Full code. Physical Examination: Vital Signs: Temperature 97, heart rate 136, blood pressure 154/119, respirations 20, O2 99% on room air. General: Awake, alert, oriented x3, [id number] distress, ill-appearing, older than stated age female, obese. CV: S1, S2. Irregularly irregular. Peripheral pulses present. Respiratory: Diminished breath sounds. No wheezing or stridor. The patient is mildly tachypneic. Gastrointestinal: Abdomen is soft, nontender, nondistended. Positive bowel sounds. Extremities: No clubbing, cyanosis, or edema. Neurologic: Nonfocal. Laboratory Data: Sodium 139, potassium 4.5, chloride 102, CO2 32, BUN 17, creatinine 0.7, glucose 141, calcium 8.8, magnesium 2. WBC 13.6, H and H 11.1 and 34.5, platelets 301, neutrophils 87%. Sputum culture growing Acinetobacter baumannii sensitive to Cipro, meropenem. Blood cultures, no growth to date. Assessment And Plan: A 67-year-old female with: 1. Shortness of breath secondary to chronic obstructive pulmonary disease exacerbation. 2. Acute on chronic respiratory failure secondary to chronic obstructive pulmonary disease. 3. Right upper lobe consolidation, likely infectious versus possible neoplastic. The patient to have repeat bronch by her traveling buyer in [place]. Awaiting transfer to [facility]. The patient does have sputum cultures positive for Acinetobacter. Likely postobstructive pneumonia and atelectasis of the right upper lobe. 4. Atrial fibrillation with rapid ventricular rate, on anticoagulation with Xarelto, with history of recent cardiac ablation. 5. Rheumatoid arthritis, on immunosuppressive therapy. 6. Gastroesophageal reflux disease with hiatal hernia. 7. Depression with anxiety. 8. Essential hypertension. 9. Chronic pain syndrome. Plan: Transfer to [facility]. Dr. Morris is the traveling buyer, who has accepted the patient; however, will need acceptance from hospitalist and hospital bed not available. The patient will need endoscopic bronchoscopy. We will continue to monitor closely with cardiac telemetry and O2. /KSENIA Voice ID: [id number] Report ID: [id number] KVNG
[2017-12-05] MEDS: CODEINE 30MG/APAP 300MG TAB PO PRN (20:38)
[2017-12-06] MEDS: GUAIFENESIN/CODEINE 5ML UCUP PO PRN ×2 (00:10→13:37)
[2017-12-06] MEDS: METOPROLOL TARTRATE 5 MG/5 ML INJ IV PRN ×2 (01:37→17:16)
[2017-12-06] MEDS: HYDROCODONE/APAP 10/325 TAB PO PRN ×3 (02:04→21:45)
[2017-12-06] MEDS: IPRATROPIUM BROM 0.5MG/2.5ML NEB SCH ×4 (02:25→19:47)
[2017-12-06] MEDS: BENZONATATE 100 MG CAP PO PRN ×2 (03:59→12:12)
[2017-12-06 04:21] LABS: Absolute Lymphocytes (CBC) 1.2 K/uL (0.7-4.9); Absolute Monocytes 0.9 K/uL (0.1-1.3); Basophils % 0.3 % (0-1.3); Eosinophils % 0.6 % (0-4.4); Hematocrit 36.4 % (36.0-45.0); Lymphocytes % 9.8 % (15.3-44.8); MCH 26.6 pg (27.0-35.0); MCV 83.5 fL (80-100); MPV 8.1 fL (7.6-11.3); RBC Red Blood Cell Count 4.36 M/uL (3.86-4.86)
[2017-12-06 04:35] LABS: Albumin 2.8 g/dL (3.4-5.0); Bilirubin Total 0.3 mg/dL (0.2-1.0); Potassium 4.2 mmol/L (3.5-5.1); Protein, Total 6.8 g/dL (6.4-8.2)
[2017-12-06] MEDS: CODEINE 30MG/APAP 300MG TAB PO PRN (06:31)
[2017-12-06] MEDS: ARFORMOTEROL TARTRATE 15 MCG/2 ML VIAL.NEB NEB SCH ×2 (07:08→19:47)
[2017-12-06] MEDS: DULOXETINE 60 MG PO SCH (09:00)
[2017-12-06] MEDS: MUCINEX 600 MG PO SCH ×2 (09:00→20:47)
--- NOTE | 2017-12-06 10:13 | RAD REPORT ---
EXAM DESCRIPTION: US - Extrem Venous W Compress Etienne - 12/06/2017 9:54 am CLINICAL HISTORY: pain, swelling rule out DVT Bilateral leg edema and swelling. COMPARISON: Extremity Venous Uni Ltd dated 09/04/2015; Thorax W/ Con dated 12/03/2017 TECHNIQUE: Real-time sonographic interrogation of the left and right lower extremity deep venous sys tems was performed. FINDINGS: Normal compressibility, flow augmentation, phasic flow and spontaneous flow is identified in both the left and right lower extremity deep venous systems. IMPRESSION: No sonographic evidence of left or right lower extremity deep venous thrombosis.
[2017-12-06] MEDS: PROPAFENONE 325 MG PO SCH ×2 (10:56→20:45)
[2017-12-06] MEDS: predniSONE 10 MG TAB PO SCH ×2 (10:56→20:43)
[2017-12-06] MEDS: AMITRIPTYLINE 50 MG TAB PO SCH ×2 (10:56→20:44)
[2017-12-06] MEDS: Meropenem 1,000 MG in NA CHLORIDE 0.9% 100 ML IV SCH (10:57)
[2017-12-06] MEDS: LEFLUNOMIDE 20 MG PO SCH (11:00)
[2017-12-06] MEDS: MOMETASONE FUROATE NS SCH (11:01)
[2017-12-06] MEDS: Enoxaparin 120 MG/0.8 ML SYR SQ SCH ×2 (11:01→20:43)
[2017-12-06] MEDS: CLONIDINE 0.2 MG PO SCH ×2 (11:02→20:47)
[2017-12-06] MEDS: LEVALBUTEROL 0.63 MG/3 ML NEB NEB PRN (13:06)
[2017-12-06] MEDS: CLINDAMYCIN HCL 150 MG CAP PO SCH ×2 (13:37→20:44)
[2017-12-06] MEDS: HYDRALAZINE HCL 20 MG/ML VIAL IV PRN (13:46)
[2017-12-06] MEDS: levoFLOXacin 500 MG TAB PO SCH (15:16)
[2017-12-06] MEDS ORDERED: DIPHENHYDRAMINE 50 MG/ML VIAL IV PRN (15:23)
[2017-12-06] MEDS ORDERED: predniSONE 10 MG TAB PO ONE (15:35)
[2017-12-06] MEDS: DILTIAZEM 240 MG PO SCH (16:44)
--- NOTE | 2017-12-06 21:08 | PN ---
Date of Progress Note: 12/06/2017 Subjective: The patient seen and examined. Chart reviewed and case discussed with RN and Dr. Mindi angel. Also spoke with Dr. Morris's medical staff. The patient complaining of worsening rheumatoid arthritis pain, swelling in her legs, difficulty breathing. The patient upset about not being transf erred. I explained to her that we do not control bed status at [facility]. Sister at the bedside. T reatment plan explained. All questions answered. Physical Examination: Vital Signs: Temperature 97.6, heart rate 101, blood pressure 156/110, respirations 24, O2 96% on 2 L via nasal cannula. General: Awake, alert, oriented x3. Appears older than stated age, morbidly obese female. CV: S1, S2. No murmurs. Irregularly irregular. Respiratory: Diminished breath sounds. No wheezing. The patient slightly tachypneic. Gastrointestinal: Abdomen is soft, nontender, nondistended. Positive bowel sounds. Extremities: No clubbing, cyanosis. The patient does have edema of the lower extremities, right wor se than left. Neurologic: Nonfocal. Musculoskeletal: Severe arthritic changes of her hands. Decreased range of motion of the left shoul arcelia. Laboratory Data: Sodium 137, potassium 4.2, chloride 103, CO2 27, BUN 15, creatinine 1, glucose 135, calcium 8.9. AST 44, ALT 98, albumin 2.8. WBC 12.2, H and H 11.6/36.4, platelets 341, neutrophils 82%. Sputum culture growing out Acinetobacter baumannii sensitive to Levaquin. Blood cultures, no g rowth to date. Extremity venous Doppler shows no evidence of DVT in either lower extremity. Assessment And Plan: A 67-year-old female with: 1.Shortness of breath secondary to acute chronic obstructive pulmonary disease exacerbation. 2.Acute on chronic respiratory failure secondary to above. 3.Right upper lobe consolidation, pneumonia, likely infectious versus possible neoplasm. The patien t is scheduled for endoscopic bronchoscopy by Dr. Morris in [place] on Monday. The patient still awaiting transfer to [facility], however, no beds or accepting hospitalist. The sputum cultu res are positive for Acinetobacter. We will give trial of Levaquin. The patient does have allergy t o Cipro, however, has received Levaquin in the past and did well. We will switch to clindamycin p.o. as well. Discharge meropenem. Appreciate Dr. Calvo's input. 4.Atrial fibrillation with rapid ventricular response, now controlled ventricular rate. Albuterol s witched to Xopenex. We will continue Xarelto and amiodarone. 5.Rheumatoid arthritis. Increase steroids. 6.Gastroesophageal reflux disease with hiatal hernia. 7.Depression with anxiety. 8.Essential hypertension, not well controlled. We will continue current medications. 9.Chronic pain syndrome. 10.Morbid obesity. Plan: We spoke with medical staff at Dr. Morris's office that the patient is scheduled for endosc opic bronchoscopy on Monday. We will discharge patient in a.m. if she tolerates clindamycin and Leva kiley p.o. well and will be on Lovenox shots until scheduled procedure. VINAY Voice ID: [id number] Report ID: [id number]
[2017-12-06] MEDS ORDERED: TEMAZEPAM 15 MG CAP PO PRN (21:53)
[2017-12-07] MEDS ORDERED: METOPROLOL TARTRATE 5 MG/5 ML INJ IV STA (00:37)
[2017-12-07] MEDS: METOPROLOL TARTRATE 5 MG/5 ML INJ IV PRN (00:57)
[2017-12-07] MEDS: IPRATROPIUM BROM 0.5MG/2.5ML NEB SCH ×3 (01:15→14:25)
[2017-12-07] MEDS: GUAIFENESIN/CODEINE 5ML UCUP PO PRN ×2 (03:46→14:46)
[2017-12-07] MEDS: HYDROCODONE/APAP 10/325 TAB PO PRN ×2 (03:46→11:01)
[2017-12-07 04:58] LABS: Absolute Lymphocytes (CBC) 0.6 K/uL (0.7-4.9); Absolute Monocytes 0.7 K/uL (0.1-1.3); Basophils % 0.1 % (0-1.3); Eosinophils % 0.2 % (0-4.4); Hematocrit 35.5 % (36.0-45.0); MCV 82.3 fL (80-100); MPV 8.1 fL (7.6-11.3); Monocytes % 4.3 % (3.3-12.3); RBC Red Blood Cell Count 4.32 M/uL (3.86-4.86)
[2017-12-07 05:35] LABS: ALT/SGPT 68 U/L (12-78); AST/SGOT 22 U/L (15-37); Albumin 2.8 g/dL (3.4-5.0); Alkaline Phosphatase 147 U/L (45-117); BUN Blood Urea Nitrogen 14 mg/dL (7-18); Bicarbonate 28 mmol/L (21-32); Bilirubin Total 0.3 mg/dL (0.2-1.0); Glucose Level 146 mg/dL (74-106); Magnesium 1.8 mg/dL (1.8-2.4); Potassium 4.2 mmol/L (3.5-5.1); Sodium Level 137 mmol/L (136-145)
[2017-12-07 05:36] LABS: Anisocytosis 1+; Blood Morphology Comment NOTED (NOT SEEN); Platelet Estimate ADEQ; Polychromasia 1+
[2017-12-07] MEDS: LEVALBUTEROL 0.63 MG/3 ML NEB NEB PRN (06:15)
[2017-12-07] MEDS ORDERED: MAGNESIUM SULFATE 1 gm IVPB 1 GM/100 ML BAG IV ONE (06:30)
[2017-12-07] MEDS: ARFORMOTEROL TARTRATE 15 MCG/2 ML VIAL.NEB NEB SCH (08:35)
[2017-12-07] MEDS: Enoxaparin 120 MG/0.8 ML SYR SQ SCH (10:41)
[2017-12-07] MEDS: predniSONE 10 MG TAB PO SCH (10:43)
[2017-12-07] MEDS: CLINDAMYCIN HCL 150 MG CAP PO SCH ×2 (10:43→14:46)
[2017-12-07] MEDS: AMITRIPTYLINE 50 MG TAB PO SCH (10:43)
[2017-12-07] MEDS: PROPAFENONE 325 MG PO SCH (10:50)
[2017-12-07] MEDS: MOMETASONE FUROATE NS SCH (10:51)
[2017-12-07] MEDS: LEFLUNOMIDE 20 MG PO SCH (10:52)
[2017-12-07] MEDS: DULOXETINE 60 MG PO SCH (10:52)
[2017-12-07] MEDS: MUCINEX 600 MG PO SCH (10:52)
[2017-12-07] MEDS: CLONIDINE 0.2 MG PO SCH (10:52)
[2017-12-07] MEDS: BENZONATATE 100 MG CAP PO PRN ×2 (11:01→17:42)
[2017-12-07 11:19] VITALS: O2SAT 96
[2017-12-07 12:47] VITALS: BP 160/80; TEMP 97.9
--- NOTE | 2017-12-07 15:22 | RAD REPORT ---
EXAM DESCRIPTION: RAD - Chest Single View - 12/07/2017 3:16 pm CLINICAL HISTORY: SOB Chest pain. COMPARISON: Chest Pa And Lat (2 Views) dated 12/03/2017; Chest Single View dated 12/02/2017; Chest Singl e View dated 11/07/2017; Chest Single View dated 10/31/2017 FINDINGS: Portable technique limits examination quality. Right upper lobe consolidation and atelectasis is again noted, appearing slightly progressive since t he comparative study. 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 The hear t is mildly enlarged in size. No displaced fractures.Hardware is present in the cervical spine.
[2017-12-07 15:26] LABS: Blood Gas Oxyhemoglobin 94.3 % (94-97); Blood O2 Saturation 96.3 % (92-98.5)
[2017-12-07] MEDS: DILTIAZEM 240 MG PO SCH (16:50)
[2017-12-07] MEDS: levoFLOXacin 500 MG TAB PO SCH (17:36)
--- NOTE | 2017-12-08 16:34 | DS ---
Date of Discharge: 12/07/2017 Consultants: Dr. Franco with Cardiology, Dr. Calvo with Pulmonology. Procedures: None. Admitting Diagnoses: 1.Shortness of breath secondary to chronic obstructive pulmonary disease exacerbation. 2.Acute on chronic respiratory distress with hypoxia. 3.Acute chronic obstructive pulmonary disease exacerbation. 4.Right upper lobe consolidation. 5.Possible lung mass, infectious versus neoplastic. 6.Atrial fibrillation on anticoagulation with Xarelto. 7.Rheumatoid arthritis: DMARDs. 8.Gastroesophageal reflux disease with hiatal hernia. 9.Depression with anxiety. 10.Chronic pain syndrome. 11.Essential hypertension. 12.Obesity, BMI 39.3. Discharge Diagnoses: 1.Shortness of breath. 2.Acute on chronic respiratory failure secondary to chronic obstructive pulmonary disease. 3.Acute chronic obstructive pulmonary disease exacerbation. The patient has end-stage chronic obstr uctive pulmonary disease. 4.Right upper lobe consolidation, pneumonia likely infectious versus possible neoplasm. The patient is scheduled for endoscopic bronchoscopy by Dr. Morris in [place] on Monday. She will finish the course of clindamycin and Levaquin. 5.Atrial fibrillation with an RVR, now controlled ventricular rate. 6.Rheumatoid arthritis, on DMARDs. 7.Immune suppressed status. 8.Depression with anxiety. 9.Essential hypertension, poorly controlled. 10.Chronic pain syndrome. 11.Morbid obesity. Hospital Course: The patient had a protracted course in the hospital. Sees Dr. Morris, a pulmono logist in [place]. The patient has end-stage COPD. However, she claims that she has never been told that she has end-stage COPD. She was admitted to our hospital for shortness of breath secondary to acute COPD exacerbation. Her chest x-ray showed consolidation of the right upper lobe by representin g postobstructive pneumonitis, possibility of large malignancy in this lobe. The patient had a recen t bronchoscopy done by Dr. Calvo. Pathology was inconclusive. She was admitted and she was start ed on nebulizer treatments and steroids as well as antibiotics. The patient does have multiple aller gies including Cipro, however, not to Levaquin and she has received Levaquin in the past. She was ev entually switched over to clindamycin and Levaquin. Her cultures from the sputum grew out Acinetobac ter sensitive to Levaquin. Her blood cultures were negative. Attempt was made to transfer the patie nt to [facility] so that her primary calender let off helper would be able to see her. However, there were no beds in the hospital that accepted the patient. The patient had a CT of the chest done as we ll, which showed masses that were suspicious for malignancy, but also showed the postobstructive pneu monia and some mediastinal lymphadenopathy. I did speak at length to the patient's CT surgeon, Dr. Aleksander pemberton, who has seen the patient previously. He stated that the patient has had multiple scans over the past 5 years and has not had any abnormalities pop-up. The patient thus felt to have likely an infe ctious process rather than malignant processes due to the acuity of the masses that appeared. The sravan gayle has been immunosuppressed and possible fungal infection may occur. The patient is scheduled fo r endoscopic bronchoscopy to be done by Dr. Morris. I spoke with his office and spoke with his st aff multiple times. The patient was given preop instructions and will go for procedure on Monday. T he patient was then sent home in a fair condition. She will be to follow up closely with her pulmono logist and primary care physician. She does have home oxygen. Her repeat ABG was normal. Chest x-r ay did not show much improvement despite the treatment. Her O2 saturations have been 96% on 3 L. Sh ziyad was able to ambulate without significant dyspnea or distress. Her rheumatoid arthritis. Did have some flare ups and her steroid dose was increased. The patient understands that she has end-stage CO PD and may have possible lung malignancy making her overall prognosis poor. She understands that she needs a bronchoscopy with bronchoalveolar lavage for possible biopsy and cultures to rule out any ot her infectious or malignant process. Followup: The patient is to follow up with Dr. Patel in 2-3 days. Follow up with calender let off helper, Dr. Yared mercer in [place] for bronchoscopy on Monday. Instructions were given to the patient. Return to [facility] for worsening condition. Diet: Heart healthy. Activity: No strenuous activity. Return to ER if condition worsens, fever, shortness of breath. Total time spent discharging the patient was 47 minutes. Physical Examination: General: Awake, alert, oriented, morbidly obese female, appears much older than stated age. CV: S1, S2. Regularly irregular. Peripheral pulses present. Respiratory: Diminished breath sounds on the right. Gastrointestinal: Abdomen is soft, nontender, nondistended. Positive bowel sounds. Extremities: No clubbing, cyanosis. Does have some lower extremity edema. Neurologic: Nonfocal. Musculoskeletal: Severe rheumatoid arthritic changes in the hands. Limited range of motion, left sh oulder. SA/MODL Voice ID: [id number] Report ID: [id number]
== END 2017-12-07 18:15 | disposition home or self-care (01) | DRG 189 ==
LOC: ER 07:08 → ERHOLD 09:28 → 4TH 10:17 → OBSVTOIN 12-03 13:50
PROVIDERS: ADMIT Family Medicine; ATTEND Family Medicine
DX: J96.20 Acute and chronic respiratory failure, unspecified whether with hypoxia or hypercapnia (principal); J18.9 Pneumonia, unspecified organism; J44.1 Chronic obstructive pulmonary disease with (acute) exacerbation; J98.11 Atelectasis; C34.91 Malignant neoplasm of unspecified part of right bronchus or lung; I48.2 Chronic atrial fibrillation; M06.9 Rheumatoid arthritis, unspecified; G47.33 Obstructive sleep apnea (adult) (pediatric); M85.80 Other specified disorders of bone density and structure, unspecified site; E78.5 Hyperlipidemia, unspecified; J44.9 Chronic obstructive pulmonary disease, unspecified; K21.9 Gastro-esophageal reflux disease without esophagitis; K44.9 Diaphragmatic hernia without obstruction or gangrene; F41.8 Other specified anxiety disorders; Z79.52 Long term (current) use of systemic steroids; I25.10 Atherosclerotic heart disease of native coronary artery without angina pectoris; F98.8 Other specified behavioral and emotional disorders with onset usually occurring in childhood and adolescence; G89.29 Other chronic pain; G89.4 Chronic pain syndrome; E66.01 Morbid (severe) obesity due to excess calories
CPT/HCPCS: 36415; 71045; 71046; 71260; 80048; 80053; 81001; 82550; 82553; 82805; 83605; 83735; 83880; 84132; 84484; 85025; 85610; 85730; 87040; 87070; 87077; 87186; 87205; 93005; 93970; 94640; 96365; 96375; 99285; G0378; J0360; J1650; J2920; J2930; J3475; J7512; J7605; Q9967

== ENCOUNTER 2018-01-27 13:34 | Inpatient (IN) | payer OTHER ==
--- OUTSIDE RECORDS SUMMARY | 2018-01-27 13:38 | XMS REPORT | Clinical Summary ---
:1950 Author Organization [facility] Address [address] [place] [address] Care Team Providers Name Role Phone Caleb Patel Primary Care Provider Allergies Active Allergy Reactions Severity Noted Date Comments Ciprofloxacin Hives 06/18/2017 Meperidine Hives 06/18/2017 Iodine Hives 06/18/2017 "iodine in seafood" Cephalexin Hives 06/18/2017 Morphine (Pf) Hives 06/18/2017 Penicillins Hives 06/18/2017 Itraconazole Hives 06/18/2017 Vancomycin Other (See Comments) 12/08/2017 Red man syndrome Current Medications Prescription Sig. Disp. Refills Start End Status Date Date leflunomide (ARAVA) 10 Take 20 mg by Active MG tablet mouth daily. MAGNESIUM CHLORIDE Take 500 mg by Active ORAL mouth daily. DULoxetine (CYMBALTA) Take 60 mg by Active 60 MG capsule mouth daily. arformoterol (BROVANA) Take 15 mcg by Active 15 mcg/2 mL solution nebulization 2 for nebulization (two) times a day. omeprazole (PriLOSEC) Take 40 mg by Active 40 MG capsule mouth 2 (two) times a day. budesonide (PULMICORT) Take 0.5 mg by Active 0.5 mg/2 mL nebulizer nebulization 2 solution (two) times a day. sulfaSALAzine Take 1,000 mg Active (AZULFIDINE) 500 mg by mouth 2 tablet (two) times a day. 2am and 2pm ibandronate (BONIVA) Take 150 mg by Active 150 mg tablet mouth every 30 (thirty) days. (mid-month).... ..Take in AM with glass of water prior to food, don't lie down for 30 minutes. HYDROcodone-acetaminop Take 1 tablet Active hen (NORCO) 10-325 mg by mouth every per tablet 6 (six) hours as needed for moderate pain. guaiFENesin (MUCINEX) Take 600 mg by Active 600 mg tablet extended mouth 2 (two) release 12hr times a day. codeine-guaifenesin Take 5 mL by Active (GUAIFENESIN AC) mouth 4 (four) 10-100 mg/5 mL liquid times a day as needed for cough. benzonatate (TESSALON) Take 200 mg by Active 100 MG capsule mouth 3 (three) times a day as needed for cough. fluticasone (FLONASE) 2 sprays by Active 50 mcg/actuation nasal Each Nare route spray daily. dofetilide (TIKOSYN) Take 1 capsule 60 capsule 1 2 02/12/ Active 500 MCG capsule (500 mcg total) 2017 by mouth every 12 (twelve) hours for 60 days. acetaminophen Take 2 tablets 01/28/ Active (TYLENOL) 325 MG (650 mg total) 2017 tablet by mouth every 6 (six) hours as needed for moderate pain for up to 30 days. ondansetron (ZOFRAN) 8 Take 1 tablet 20 tablet 3 2 02/01/ Active MG tabletIndications: (8 mg total) by 2017 CINV mouth every 8 (chemotherapy-induced (eight) hours nausea and vomiting) as needed for nausea or vomiting for up to 30 days. promethazine Take 1 tablet 40 tablet 3 2 02/01/ Active (PHENERGAN) 12.5 MG (12.5 mg total) 2017 tabletIndications: by mouth every CINV 6 (six) hours (chemotherapy-induced as needed for nausea and vomiting) nausea or vomiting for up to 30 days. dexamethasone Take 1 tablet 28 tablet 0 2 03/03/ Active (DECADRON) 4 MG (4 mg total) by 2017 tabletIndications: mouth 2 (two) Malignant neoplasm of times a day upper lobe of right with meals. lung (HCC), COPD Take only on exacerbation (HCC) Day 1 and Day 2 after chemo infusion. ipratropium (ATROVENT) Take 500 mcg by Active 0.02 % nebulizer nebulization 2 solution (two) times a day. predniSONE (DELTASONE) Take 10 mg by Active 10 mg tablet mouth daily. Pt 018 was on taper: [id number],3tab x7d,4umdg8e,1ta b there on. Scheduled to start Prednisone 10mg 01/20/18. loperamide (IMODIUM) 2 Take 1 capsule 30 capsule 0 02/01/ Active mg capsule (2 mg total) by 2017 mouth 4 (four) times a day as needed for diarrhea for up to 10 days. clonIDINE (CATAPRES) Take 1 tablet 30 tablet 1 02/21/ Active 0.1 MG tablet (0.1 mg total) 2017 by mouth 3 (three) times a day as needed for high blood pressure (if sbp is more than 160) for up to 30 days. magnesium oxide Take 1 tablet 30 tablet 0 02/21/ Active (MAG-OX) 400 mg (241.3 (400 mg total) 2017 mg magnesium) tablet by mouth daily for 30 days. predniSONE (DELTASONE) Take 10 mg by 12/25/ Discontinued 10 mg tablet mouth daily. 2018 clonIDINE HCl Take 0.2 mg by 12/25/ Discontinued (CATAPRES) 0.2 MG mouth 2 (two) 2018 tablet times a day. amitriptyline (ELAVIL) Take 50 mg by Discontinued 50 MG tablet mouth 2 (two) 2018 times a day. potassium chloride Take 20 mEq by 09/14/ Discontinued (K-DUR,KLOR-CON) 10 mouth 2 (two) 2018 MEQ CR tablet times a day. mometasone (NASONEX) 1 spray into Discontinued 50 mcg/actuation nasal each nostril 2018 spray daily. ipratropium (ATROVENT Inhale 1 puff 2 12/29/ Discontinued HFA) 17 mcg/actuation (two) times a 2018 inhaler day. aspirin (ECOTRIN) 81 Take 81 mg by 06/21/ Discontinued MG enteric coated mouth daily. 2018 tablet acetaminophen-codeine Take 1 tablet 11/20/ Discontinued (TYLENOL WITH CODEINE by mouth 3 2018 #3) 300-30 mg per (three) times a tablet day as needed for moderate pain. umeclidinium-vilantero Inhale nightly. Discontinued l (ANORO ELLIPTA) 2018 62.5-25 mcg/actuation blister with device diltiazem CD (CardIZEM Take 240 mg by Discontinued CD) 240 MG 24 hr mouth daily. 2017 capsule etanercept (ENBREL) 25 Inject 25 mg mg (1 mL) injection under the skin. 2018 Patient take 25mg inj 2x/wk or 50mg inj once a wk pirfenidone 267 mg Take by mouth 3 Discontinued capsule (three) times a 2018 day with meals. hydroCHLOROthiazide Take 25 mg by Discontinued (HYDRODIURIL) 25 MG mouth daily. 2018 tablet propafenone SR Take 225 mg by Discontinued (RYTHMOL SR) 225 MG 12 mouth 3 (three) 2018 hr capsule times a day. rivaroxaban (XARELTO) Take 1 tablet 30 tablet 0 06/22/2 07/22/ 20 mg tablet (20 mg total) 018 2017 by mouth daily for 30 days. propafenone SR Take 325 mg by Discontinued (RYTHMOL SR) 325 MG 12 mouth 2 (two) 2018 hr capsule times a day. spironolactone Take 25 mg by Discontinued (ALDACTONE) 25 MG mouth daily. 2018 tablet rivaroxaban (XARELTO) Take 20 mg by Discontinued 20 mg tablet mouth daily. 2018 sucralfate (CARAFATE) Take 1 tablet 90 tablet 0 09/15/2 10/15/ 1 gram tablet (1 g total) by 018 2017 mouth 3 (three) times a day before meals for 30 days. colchicine 0.6 mg Take 0.5 30 tablet 0 09/15/2 10/15/ tablet tablets (0.3 mg 018 2017 total) by mouth 2 (two) times a day for 30 days. pirfenidone (ESBRIET) Take by mouth. Discontinued 267 mg capsule 2017 HYDROcodone-acetaminop Take by mouth hen (ZAMCET) 10-325 every 6 (six) 2018 mg/15 mL(15 mL) hours as needed solution for moderate pain. hydrocodone/acetaminop Take by mouth. 09/14/ Discontinued hen (VICODIN ORAL) 2018 diltiazem CD (CardIZEM Take 240 mg by Discontinued CD) 240 MG 24 hr mouth daily. @ 2018 capsule 4 PM amitriptyline (ELAVIL) Take 50 mg by Discontinued 50 MG tablet mouth 2 (two) 2018 times a day. ipratropium (ATROVENT) Take 500 mcg by Discontinued 0.02 % nebulizer nebulization 2018 solution once daily. clindamycin (CLEOCIN) Take 300 mg by Discontinued 150 MG capsule mouth 3 (three) 2018 times a day. For 5 days, starting 12/07/17 levoFLOXacin Take 500 mg by Discontinued (LEVAQUIN) 500 MG mouth daily. @ 2017 tablet 5 PM; For 10 days, starting 12/07/17 metoprolol tartrate Take 25 mg by Discontinued (LOPRESSOR) 25 mg mouth 2 (two) 2018 tablet times a day. enoxaparin (LOVENOX) Inject 120 mg Discontinued 120 mg/0.8 mL syringe under the skin 2017 2 (two) times a day. pregabalin (LYRICA) 25 Take 1 capsule 30 capsule 0 01/24/ MG capsule (25 mg total) 018 2017 by mouth daily for 30 days. lisinopril Take 1 tablet 60 tablet 0 (PRINIVIL,ZESTRIL) 20 (20 mg total) 018 2018 mg tablet by mouth 2 (two) times a day for 30 days. clonIDINE HCl Take 1 tablet 90 tablet 0 01/22/ Discontinued (CATAPRES) 0.3 MG (0.3 mg total) 018 2017 tablet by mouth 3 (three) times a day for 30 days. hydrALAZINE Take 1 tablet 60 tablet 0 01/24/ (APRESOLINE) 50 MG (50 mg total) 018 2017 tablet by mouth every 12 (twelve) hours for 30 days. amLODIPine (NORVASC) Take 1 tablet 30 tablet 0 2 01/25/ 10 mg tablet (10 mg total) 018 2017 by mouth daily for 30 days. apixaban (ELIQUIS) 5 Take 1 tablet 60 tablet 0 01/24/ mg tablet (5 mg total) by 2017 mouth 2 (two) times a day for 30 days. predniSONE (DELTASONE) 2ryug1w,1nojc0a 100 tablet 0 Discontinued 10 mg tablet ,2mzrl7e,1tabx3 018 2017 d then stop furosemide (LASIX) 20 Take 1 tablet 60 tablet 0 01/24/ mg tablet (20 mg total) 2017 by mouth 2 (two) times a day for 30 days. potassium chloride Take 2 capsules 120 capsule 0 01/24/ (MICRO-K) 10 MEQ CR (20 mEq total) 2017 capsule by mouth 2 (two) times a day for 30 days. doxycycline Take 1 capsule 20 capsule 0 Discontinued (VIBRAMYCIN) 100 MG (100 mg total) 2017 capsule by mouth 2 (two) times a day for 10 days. ondansetron (ZOFRAN) 8 Take 1 tablet 20 tablet 3 Discontinued MG tabletIndications: (8 mg total) by 2017 CINV mouth every 8 (chemotherapy-induced (eight) hours nausea and vomiting) as needed for nausea or vomiting for up to 30 days. promethazine Take 1 tablet 40 tablet 3 Discontinued (PHENERGAN) 25 MG (25 mg total) 2017 tabletIndications: by mouth every CINV 6 (six) hours (chemotherapy-induced as needed for nausea and vomiting) nausea or vomiting for up to 30 days. ipratropium-albuterol Take 3 mL by Discontinued (DUO-NEB) 0.5-2.5 nebulization 4 2017 mg/mL nebulizer (four) times a day for 30 days. predniSONE (DELTASONE) 1znuk5gsob,3tab 60 tablet 0 Discontinued 10 mg tablet x7d,0jxxi6o,1ta 2017 bx7d then stop hydrocortisone Insert 1 60 suppository 0 Discontinued (ANUSOL-HC) 25 mg suppository (25 2017 suppository mg total) into the rectum 2 (two) times a day for 30 days. Hospital, Clinic, or Other Ordered Dose Route Frequency Start Date End Date Status Facility Administered Medication magnesium sulfate 1g/100mL 1 g IV once 01/10/2018 01/10/2018 Ended D5W IVPB (premix)Indications: Malignant neoplasm of upper lobe of right lung (HCC) Active Problems Problem Noted Date Hypomagnesemia 01/23/2018 Dehydration 01/19/2018 Malignant neoplasm of upper lobe of right lung (HCC) 12/25/2017 Atrial flutter (HCC) 12/08/2017 PAF (paroxysmal atrial fibrillation) (HCC) 09/14/2017 Resolved Problems Problem Noted Date Resolved Date COPD exacerbation (HCC) 12/28/2017 01/16/2018 Dehydration 12/26/2017 01/10/2018 Diarrhea 12/26/2017 01/10/2018 Encounters Date Type Specialty Care Team Description 01/25/2018 Hospital Encounter Radiation Oncology Mumtaz Hoang MD 01/23/2018 Office Visit Oncology Niko Rahman MD Malignant neoplasm of upper lobe of right lung (HCC) (Primary Dx); Atrial flutter, unspecified type (HCC); Hypomagnesemia 01/23/2018 Infusion Oncology Niko Rahman MD Malignant neoplasm of upper lobe of right lung (HCC) (Primary Dx); Hypomagnesemia 01/23/2018 Telephone General Internal Heide, Fabiola Weaver, MANJINDER 01/23/2018 Orders Only Oncology Mario Sims RN 01/22/2018 Orders Only Oncology Marek Ordonez RN 01/19/2018 Hospital Encounter General Internal Tu, Yen-Te Dehydration ( Primary Dx); - Medicine MD Akin Diarrhea, unspecified type; 01/22/2018 Elizabeth Braxton MD Norovirus; Diarrhea of infectious origin; PAF (paroxysmal atrial fibrillation) (HCC); Malignant neoplasm of upper lobe of right lung (HCC) 01/15/2018 Office Visit Oncology Niko Rahman MD Malignant neoplasm of upper lobe of right lung (HCC) (Primary Dx); Alondra Heck Atrial flutter, unspecified type (HCC) MD Laila 01/15/2018 Infusion Oncology Niko Rahman MD Malignant neoplasm Pulido, of upper lobe of Darcy, RN right lung (HCC) (Primary Dx) 01/14/2018 Orders Only Oncology Niko Rahman MD Malignant neoplasm of upper lobe of right lung (HCC) 01/12/2018 Orders Only Oncology Marek Ordonez RN 01/10/2018 Office Visit Oncology Niko Rahman MD Malignant neoplasm Alondra Heck of upper lobe of MD Laila right lung (HCC) (Primary Dx) 01/10/2018 Infusion Oncology Niko Rahman MD Malignant neoplasm of upper lobe of right lung (HCC) (Primary Dx) 01/10/2018 Telephone Oncology Gisela Gross RN 01/10/2018 Orders Only Oncology Gisela Gross Malignant neoplasm of upper lobe of right lung (HCC) (Primary Dx); MANJINDER Pathak COPD exacerbation (HCC) 01/02/2018 Orders Only Oncology Niko Rahman MD 01/02/2018 Orders Only Oncology Angelica Gonzalez, [facility] 01/02/2018 Orders Only Oncology Rowena Soler, [facility] 01/02/2018 Telephone Oncology Niko Rahman MD 01/02/2018 Orders Only Oncology LINDA Soto RN (chemotherapy-induce d nausea and vomiting) (Primary Dx) 12/26/2017 Hospital Encounter General Internal Boyareddigari, Dehydration ( Primary Dx); - Medicine Vinicius R., Diarrhea, unspecified type 12/29/2017 Chinyere Garza MD 12/26/2017 Hospital Encounter Radiation Oncology Mumtaz Hoang MD 12/26/2017 Oncology Radiation Oncology Mary, Malignant neoplasm Gabi Ortiz RN of overlapping sites of right lung (HCC) (Primary Dx) 12/26/2017 Orders Only Oncology Alondra Heck MD 12/26/2017 Orders Only Oncology Niko Rahman MD Malignant neoplasm of upper lobe of right lung (HCC) 12/25/2017 Patient Outreach Quality Johnny Stratton RN 12/25/2017 Orders Only Oncology Julianna Shahid, PharmD 12/25/2017 Orders Only Oncology LINDA Soto RN (chemotherapy-induce d nausea and vomiting) (Primary Dx) 12/25/2017 Orders Only Oncology Alondra Heck MD 12/22/2017 Hospital Encounter Radiation Oncology Mumtaz Hoang MD 12/12/2017 Procedure Pass Vascular Surgery 12/12/2017 Surgery Vascular Surgery [facility], BRONCHOSCOPY WITH Jin Andrews, EBUS, FNA, FINA, BIOPSY 12/11/2017 Anesthesia Event Vascular Surgery Terrell Joyner MD 12/11/2017 Procedure Pass Vascular Surgery 12/08/2017 Hospital Encounter Cardiology Arnold, Atrial flutter, unspecified type (Primary Dx); - MD Josse Chronic obstructive pulmonary disease, unspecified COPD type; 12/25/2017 Guero, Lung infiltrate; MD Obey Squamous cell carcinoma of right lung Rolando Pierre MD Kazim, Lubna S., MD 12/04/2017 Intake Access N/A 11/28/2017 Telephone Cardiothoracic Jelani, Surgery Yasemin Gunter NP 11/24/2017 Hospital Encounter Radiology Papo Torres MD 11/24/2017 Ancillary Orders Papo Mays MD 11/24/2017 Telephone Cardiothoracic Delfino, Surgery AMARILIS Parkinson 11/20/2017 Hospital Encounter Radiology Papo Torres Canceled (Luis Gibson MD Order Error) 11/20/2017 Hospital Encounter Radiology Papo Torres MD 11/20/2017 Office Visit Cardiothoracic Papo Torres Lung mass (Primary Surgery MD Arthur Dx) 11/20/2017 Ancillary Orders Papo Mays MD 11/17/2017 Orders Only Cardiothoracic Provider, Surgery MD Patricia 09/14/2017 Hospital Encounter Cardiology Kristopher Moreno MD PAF (paroxysmal - atrial fibrillation) 09/15/2017 09/14/2017 Anesthesia Event Procedural Cardiology Cristina Juarez MD 09/14/2017 Procedure Pass Procedural Cardiology 09/14/2017 Surgery Procedural Cardiology Kristopher Moreno MD Ep complete ep study w ablation pulmonary vein [05595 (CPT)] 06/21/2017 Patient Outreach Quality Rachel Gunter Leonard 06/21/2017 Procedure Pass Procedural Cardiology 06/21/2017 Surgery Procedural Cardiology Kristopher Moreno MD Ep loop recorder insertion [87272 (CPT)] 06/21/2017 Procedure Pass Procedural Cardiology 06/21/2017 Surgery Procedural Cardiology Kristopher Moreno MD Ep complete ep study w ablation svt [73920 (CPT)] 06/19/2017 Anesthesia Event Procedural Cardiology Keke Perla 06/18/2017 Hospital Encounter Cardiovascular Nicola, Atrial fibrillation - MD Yanick with RVR (Primary 06/21/2017 Dx) after 01/26/2017 Immunizations Name Dates Previously Given Next Due FLUCELVAX QUAD PF (0.5mL syringe) 12/29/2017 Family History Medical History Relation Name Comments [...] Vital Sign Reading Time Taken Blood Pressure 133/65 01/23/2018 11:05 AM CDT Pulse 115 01/23/2018 11:05 AM CDT Temperature 37.1 C (98.7 F) 01/23/2018 11:05 AM CDT Respiratory Rate 17 01/23/2018 11:05 AM CDT Oxygen Saturation 96% 01/23/2018 11:05 AM CDT Inhaled Oxygen Concentration - - Weight 106 kg (233 lb 11 oz) 01/23/2018 11:05 AM CDT Height 167.6 cm (5' 6") 01/23/2018 11:05 AM CDT Body Mass Index 37.72 01/23/2018 11:05 AM CDT Plan of Treatment Date Type Specialty Care Team Description 01/29/2018 Infusion Oncology Niko Rahman MD [address] [place] [address] [id number] 01/29/2018 Office Visit Oncology Niko Rahman MD [address] [place] [address] [phone] 02/05/2018 Infusion Oncology Niko Rahman MD [address] [place] [address] [phone] 02/05/2018 Office Visit Oncology Niko Rahman MD [address] [place] [address] [phone] 02/12/2018 Infusion Oncology Niko Rahman MD [address] [place] [address] [address] [place] [address] [phone] 02/24/2018 Appointment Radiation Oncology Mumtaz Hoang MD [address] [place] [address] [phone] Health Maintenance Due Date Last Done Comments BREAST CANCER SCREENING 08/17/2001 COLON CANCER SCREENING 08/17/2001 SHINGRIX VACCINE (#1) 08/17/2001 ZOSTER VACCINE 2011 PNEUMOCOCCAL POLYSACCHARIDE VACCINE AGE 65 AND OVER 08/17/2016 PNEUMOCOCCAL-13 08/17/2016 INFLUENZA VACCINE Completed 12/29/2017 Implants Implanted Type Area Plaster Block Layer Device Expiration Model / Identifier Date Serial / Lot Monitor Cardiac Implant Confirm Rx - [id number] Cardiac N/A: [employer] [id number] / Implanted: 06/21/2017 (Quantity not on file) Pacemakers and N/A INC / Related Products Port Injctbl Smart Port Ct W/ Dtchd Plyurthn Cath 8fr - [id number] Implantable N/A: [employer]GI[employer]NAM[employer] 08/24/2020 [id number] / Implanted: 12/22/2017 (Quantity not on file) Infusion Ports N/A INC / or Accessories [id number] Procedures Procedure Name Priority Date/Time Associated Comments Diagnosis ESTIMATED GFR STAT 01/23/2018 11:20 Results for this AM CDT procedure are in the results section. MAGNESIUM LEVEL STAT 01/23/2018 11:20 Malignant neoplasm Results for this AM CDT of upper lobe of procedure are in right lung (HCC) the results section. COMPREHENSIVE METABOLIC STAT 01/23/2018 11:20 Malignant neoplasm Results for this PANEL AM CDT of upper lobe of procedure are in right lung (HCC) the results section. HC COMPLETE BLD COUNT STAT 01/23/2018 11:20 Malignant neoplasm Results for this W/AUTO DIFF AM CDT of upper lobe of procedure are in right lung (HCC) the results section. ESTIMATED GFR Routine 01/22/2018 4:00 Results for this AM CDT procedure are in the results section. PHOSPHORUS LEVEL Routine 01/22/2018 4:00 Results for this AM CDT procedure are in the results section. MAGNESIUM LEVEL Routine 01/22/2018 4:00 Results for this AM CDT procedure are in the results section. BASIC METABOLIC PANEL Routine 01/22/2018 4:00 Results for this AM CDT procedure are in the results section. HC COMPLETE BLD COUNT Routine 01/21/2018 5:20 Results for this W/AUTO DIFF AM CDT procedure are in the results section. ESTIMATED GFR Routine 01/21/2018 4:00 Results for this AM CDT procedure are in the results section. IONIZED CALCIUM Routine 01/21/2018 4:00 Results for this AM CDT procedure are in the results section. PHOSPHORUS LEVEL Routine 01/21/2018 4:00 Results for this AM CDT procedure are in the results section. MAGNESIUM LEVEL Routine 01/21/2018 4:00 Results for this AM CDT procedure are in the results section. BASIC METABOLIC PANEL Routine 01/21/2018 4:00 Results for this AM CDT procedure are in the results section. TROPONIN Timed 01/21/2018 12:00 Results for this AM CDT procedure are in the results section. TROPONIN Timed 01/20/2018 3:45 Results for this PM CDT procedure are in the results section. ECG 12-LEAD STAT 01/20/2018 3:29 Results for this PM CDT procedure are in the results section. ESTIMATED GFR Routine 01/20/2018 4:30 Results for this AM CDT procedure are in the results section. THYROID STIMULATING Routine 01/20/2018 4:30 Results for this HORMONE AM CDT procedure are in the results section. PHOSPHORUS LEVEL Routine 01/20/2018 4:30 Results for this AM CDT procedure are in the results section. MAGNESIUM LEVEL Routine 01/20/2018 4:30 Results for this AM CDT procedure are in the results section. LIPID PANEL Routine 01/20/2018 4:30 Results for this AM CDT procedure are in the results section. COMPREHENSIVE METABOLIC Routine 01/20/2018 4:30 Results for this PANEL AM CDT procedure are in the results section. HC COMPLETE BLD COUNT Routine 01/20/2018 4:30 Results for this W/AUTO DIFF AM CDT procedure are in the results section. B NATRIURETIC PEPTIDE Routine 01/20/2018 4:30 Results for this AM CDT procedure are in the results section. TROPONIN Timed 01/19/2018 11:28 Results for this PM CDT procedure are in the results section. TROPONIN Timed 01/19/2018 8:30 Results for this PM CDT procedure are in the results section. BLOOD CULTURE, AEROBIC & Routine 01/19/2018 8:10 Results for this ANAEROBIC PM CDT procedure are in the results section. XR CHEST 2 VW STAT 01/19/2018 6:33 Results for this PM CDT procedure are in the results section. BLOOD CULTURE, AEROBIC & Routine 01/19/2018 5:22 Results for this ANAEROBIC PM CDT procedure are in the results section. URINALYSIS SCREEN AND STAT 01/19/2018 2:52 Results for this MICROSCOPY, WITH REFLEX PM CDT procedure are in TO CULTURE the results section. GRAM STAIN STAT 01/19/2018 2:52 Results for this PM CDT procedure are in the results section. URINE CULTURE STAT 01/19/2018 2:52 Results for this PM CDT procedure are in the results section. GASTROINTESTINAL PANEL Routine 01/19/2018 2:52 Results for this PM CDT procedure are in the results section. CT ABDOMEN PELVIS WO STAT 01/19/2018 1:59 Results for this CONTRAST PM CDT procedure are in the results section. ECG 12-LEAD STAT 01/19/2018 1:09 Results for this PM CDT procedure are in the results section. MANUAL DIFFERENTIAL STAT 01/19/2018 1:05 Results for this PM CDT procedure are in the results section. ESTIMATED GFR STAT 01/19/2018 1:05 Results for this PM CDT procedure are in the results section. LACTIC ACID LEVEL STAT 01/19/2018 1:05 Results for this PM CDT procedure are in the results section. LIPASE LEVEL STAT 01/19/2018 1:05 Results for this PM CDT procedure are in the results section. COMPREHENSIVE METABOLIC STAT 01/19/2018 1:05 Results for this PANEL PM CDT procedure are in the results section. CBC WITH PLATELET AND STAT 01/19/2018 1:05 Results for this DIFFERENTIAL PM CDT procedure are in the results section. MANUAL DIFFERENTIAL STAT 01/15/2018 10:35 Results for this AM CDT procedure are in the results section. ESTIMATED GFR STAT 01/15/2018 10:35 Results for this AM CDT procedure are in the results section. MAGNESIUM LEVEL STAT 01/15/2018 10:35 Malignant neoplasm Results for this AM CDT of upper lobe of procedure are in right lung (HCC) the results section. COMPREHENSIVE METABOLIC STAT 01/15/2018 10:35 Malignant neoplasm Results for this PANEL AM CDT of upper lobe of procedure are in right lung (HCC) the results section. CBC WITH PLATELET AND STAT 01/15/2018 10:35 Malignant neoplasm Results for this DIFFERENTIAL AM CDT of upper lobe of procedure are in right lung (HCC) the results section. MANUAL DIFFERENTIAL STAT 01/10/2018 11:55 Results for this AM CDT procedure are in the results section. ESTIMATED GFR STAT 01/10/2018 11:55 Results for this AM CDT procedure are in the results section. MAGNESIUM LEVEL STAT 01/10/2018 11:55 Malignant neoplasm Results for this AM CDT of upper lobe of procedure are in right lung (HCC) the results section. COMPREHENSIVE METABOLIC STAT 01/10/2018 11:55 Malignant neoplasm Results for this PANEL AM CDT of upper lobe of procedure are in right lung (HCC) the results section. CBC WITH PLATELET AND STAT 01/10/2018 11:55 Malignant neoplasm Results for this DIFFERENTIAL AM CDT of upper lobe of procedure are in right lung (HCC) the results section. HC COMPLETE BLD COUNT Routine 12/29/2017 4:43 Results for this W/AUTO DIFF AM CDT procedure are in the results section. MAGNESIUM LEVEL Routine 12/29/2017 4:00 Results for this AM CDT procedure are in the results section. ESTIMATED GFR Routine 12/29/2017 4:00 Results for this AM CDT procedure are in the results section. BASIC METABOLIC PANEL Routine 12/29/2017 4:00 Results for this AM CDT procedure are in the results section. CT CHEST WO CONTRAST STAT 12/28/2017 4:15 Results for this PM CDT procedure are in the results section. GRAM STAIN Routine 12/28/2017 12:20 Results for this PM CDT procedure are in the results section. SPUTUM CULTURE Routine 12/28/2017 12:20 Results for this PM CDT procedure are in the results section. MAGNESIUM LEVEL Routine 12/28/2017 4:09 Results for this AM CDT procedure are in the results section. ESTIMATED GFR Routine 12/28/2017 4:09 Results for this AM CDT procedure are in the results section. HC COMPLETE BLD COUNT Routine 12/28/2017 4:09 Results for this W/AUTO DIFF AM CDT procedure are in the results section. BASIC METABOLIC PANEL Routine 12/28/2017 4:09 Results for this AM CDT procedure are in the results section. XR CHEST 1 VW PORTABLE STAT 12/27/2017 6:58 Results for this PM CDT procedure are in the results section. LACTIC ACID LEVEL, Routine 12/27/2017 4:40 Results for this SEPSIS - NOW AND REPEAT AM CDT procedure are in 2X EVERY 3 HOURS the results section. MAGNESIUM LEVEL Routine 12/27/2017 4:40 Results for this AM CDT procedure are in the results section. ESTIMATED GFR Routine 12/27/2017 4:40 Results for this AM CDT procedure are in the results section. BASIC METABOLIC PANEL Routine 12/27/2017 4:40 Results for this AM CDT procedure are in the results section. HC COMPLETE BLD COUNT Routine 12/27/2017 4:40 Results for this W/AUTO DIFF AM CDT procedure are in the results section. HEPATITIS ACUTE PANEL Routine 12/27/2017 4:40 Results for this AM CDT procedure are in the results section. RESPIRATORY PATHOGEN Routine 12/26/2017 10:30 Results for this PANEL PM CDT procedure are in the results section. GASTROINTESTINAL PANEL Routine 12/26/2017 10:30 Results for this PM CDT procedure are in the results section. XR ABDOMEN 1 VW PORTABLE STAT 12/26/2017 9:50 Results for this PM CDT procedure are in the results section. LACTIC ACID LEVEL, Timed 12/26/2017 9:45 Results for this SEPSIS - NOW AND REPEAT PM CDT procedure are in 2X EVERY 3 HOURS the results section. BLOOD CULTURE, AEROBIC & Routine 12/26/2017 9:44 Results for this ANAEROBIC PM CDT procedure are in the results section. BLOOD CULTURE, AEROBIC & Routine 12/26/2017 9:44 Results for this ANAEROBIC PM CDT procedure are in the results section. ESTIMATED GFR STAT 12/26/2017 8:00 Results for this PM CDT procedure are in the results section. LIPASE LEVEL STAT 12/26/2017 8:00 Results for this PM CDT procedure are in the results section. COMPREHENSIVE METABOLIC STAT 12/26/2017 8:00 Results for this PANEL PM CDT procedure are in the results section. HC COMPLETE BLD COUNT STAT 12/26/2017 8:00 Results for this W/AUTO DIFF PM CDT procedure are in the results section. ESTIMATED GFR Routine 12/25/2017 5:20 Results for this AM CDT procedure are in the results section. MAGNESIUM LEVEL Routine 12/25/2017 5:20 Results for this AM CDT procedure are in the results section. BASIC METABOLIC PANEL Routine 12/25/2017 5:20 Results for this AM CDT procedure are in the results section. HC COMPLETE BLD COUNT Routine 12/25/2017 5:20 Results for this W/AUTO DIFF AM CDT procedure are in the results section. POC GLUCOSE Routine 12/24/2017 8:44 Results for this PM CDT procedure are in the results section. ESTIMATED GFR Routine 12/24/2017 4:57 Results for this AM CDT procedure are in the results section. MAGNESIUM LEVEL Routine 12/24/2017 4:57 Results for this AM CDT procedure are in the results section. BASIC METABOLIC PANEL Routine 12/24/2017 4:57 Results for this AM CDT procedure are in the results section. HC COMPLETE BLD COUNT Routine 12/24/2017 4:57 Results for this W/AUTO DIFF AM CDT procedure are in the results section. POTASSIUM LEVEL Routine 12/23/2017 5:00 Results for this PM CDT procedure are in the results section. ECG 12-LEAD Routine 12/23/2017 1:00 Results for this PM CDT procedure are in the results section. ESTIMATED GFR Routine 12/23/2017 3:35 Results for this AM CDT procedure are in the results section. MAGNESIUM LEVEL Routine 12/23/2017 3:35 Results for this AM CDT procedure are in the results section. BASIC METABOLIC PANEL Routine 12/23/2017 3:35 Results for this AM CDT procedure are in the results section. HC COMPLETE BLD COUNT Routine 12/23/2017 3:10 Results for this W/AUTO DIFF AM CDT procedure are in the results section. SPIROMETRY PRE AND POST Routine 12/22/2017 3:07 Atrial flutter, WITH BRONCHILATOR, PM CDT unspecified type DIFFUSION, LUNG VOLUMES IR PORT PLACEMENT Routine 12/22/2017 11:00 Results for this AM CDT procedure are in the results section. XR CHEST 2 VW Routine 12/21/2017 5:10 Results for this PM CDT procedure are in the results section. URINALYSIS SCREEN AND Routine 12/21/2017 12:55 Results for this MICROSCOPY, WITH REFLEX PM CDT procedure are in TO CULTURE the results section. URINE CULTURE Routine 12/21/2017 12:55 Results for this PM CDT procedure are in the results section. BLOOD CULTURE, AEROBIC & Routine 12/21/2017 11:25 Results for this ANAEROBIC AM CDT procedure are in the results section. BLOOD CULTURE, AEROBIC & Routine 12/21/2017 11:25 Results for this ANAEROBIC AM CDT procedure are in the results section. ESTIMATED GFR Routine 12/21/2017 2:10 Results for this AM CDT procedure are in the results section. BASIC METABOLIC PANEL Routine 12/21/2017 2:10 Results for this AM CDT procedure are in the results section. MAGNESIUM LEVEL Routine 12/21/2017 2:10 Results for this AM CDT procedure are in the results section. HC COMPLETE BLD COUNT Routine 12/21/2017 2:00 Results for this W/AUTO DIFF AM CDT procedure are in the results section. PET CT SKULL BASE TO MID Routine 12/20/2017 12:17 Results for this THIGH PM CDT procedure are in the results section. POC GLUCOSE Routine 12/20/2017 10:36 Results for this AM CDT procedure are in the results section. ESTIMATED GFR Routine 12/20/2017 3:53 Results for this AM CDT procedure are in the results section. BASIC METABOLIC PANEL Routine 12/20/2017 3:53 Results for this AM CDT procedure are in the results section. MAGNESIUM LEVEL Routine 12/20/2017 3:53 Results for this AM CDT procedure are in the results section. HC COMPLETE BLD COUNT Routine 12/20/2017 3:25 Results for this W/AUTO DIFF AM CDT procedure are in the results section. ESTIMATED GFR Routine 12/19/2017 4:00 Results for this AM CDT procedure are in the results section. BASIC METABOLIC PANEL Routine 12/19/2017 4:00 Results for this AM CDT procedure are in the results section. MAGNESIUM LEVEL Routine 12/19/2017 4:00 Results for this AM CDT procedure are in the results section. HC COMPLETE BLD COUNT Routine 12/19/2017 3:55 Results for this W/AUTO DIFF AM CDT procedure are in the results section. BASIC METABOLIC PANEL Routine 12/18/2017 5:10 Results for this AM CDT procedure are in the results section. ESTIMATED GFR Routine 12/18/2017 5:10 Results for this AM CDT procedure are in the results section. CBC HEMOGRAM Routine 12/18/2017 5:10 Results for this AM CDT procedure are in the results section. HC COMPLETE BLD COUNT Routine 12/17/2017 5:00 Results for this W/AUTO DIFF AM CDT procedure are in the results section. ESTIMATED GFR Routine 12/17/2017 4:00 Results for this AM CDT procedure are in the results section. HEPATIC FUNCTION PANEL Routine 12/17/2017 4:00 Results for this AM CDT procedure are in the results section. PHOSPHORUS LEVEL Routine 12/17/2017 4:00 Results for this AM CDT procedure are in the results section. MAGNESIUM LEVEL Routine 12/17/2017 4:00 Results for this AM CDT procedure are in the results section. BASIC METABOLIC PANEL Routine 12/17/2017 4:00 Results for this AM CDT procedure are in the results section. CT CHEST W CONTRAST Routine 12/16/2017 1:53 Results for this ABDOMEN W CONTRAST PM CDT procedure are in PELVIS W CONTRAST the results section. CT HEAD W WO CONTRAST Routine 12/16/2017 1:52 Results for this PM CDT procedure are in the results section. ESTIMATED GFR Routine 12/16/2017 4:34 Results for this AM CDT procedure are in the results section. HEPATIC FUNCTION PANEL Routine 12/16/2017 4:34 Results for this AM CDT procedure are in the results section. PHOSPHORUS LEVEL Routine 12/16/2017 4:34 Results for this AM CDT procedure are in the results section. MAGNESIUM LEVEL Routine 12/16/2017 4:34 Results for this AM CDT procedure are in the results section. HC COMPLETE BLD COUNT Routine 12/16/2017 4:34 Results for this W/AUTO DIFF AM CDT procedure are in the results section. BASIC METABOLIC PANEL Routine 12/16/2017 4:34 Results for this AM CDT procedure are in the results section. ECG 12-LEAD Routine 12/15/2017 4:12 Results for this PM CDT procedure are in the results section. SMEAR REVIEW Routine 12/15/2017 4:25 Results for this AM CDT procedure are in the results section. HC COMPLETE BLD COUNT Routine 12/15/2017 4:25 Results for this W/AUTO DIFF AM CDT procedure are in the results section. ESTIMATED GFR Routine 12/15/2017 4:00 Results for this AM CDT procedure are in the results section. HEPATIC FUNCTION PANEL Routine 12/15/2017 4:00 Results for this AM CDT procedure are in the results section. PHOSPHORUS LEVEL Routine 12/15/2017 4:00 Results for this AM CDT procedure are in the results section. MAGNESIUM LEVEL Routine 12/15/2017 4:00 Results for this AM CDT procedure are in the results section. BASIC METABOLIC PANEL Routine 12/15/2017 4:00 Results for this AM CDT procedure are in the results section. ESTIMATED GFR Routine 12/14/2017 3:29 Results for this AM CDT procedure are in the results section. PHOSPHORUS LEVEL Routine 12/14/2017 3:29 Results for this AM CDT procedure are in the results section. MAGNESIUM LEVEL Routine 12/14/2017 3:29 Results for this AM CDT procedure are in the results section. BASIC METABOLIC PANEL Routine 12/14/2017 3:29 Results for this AM CDT procedure are in the results section. HC COMPLETE BLD COUNT Routine 12/14/2017 3:03 Results for this W/AUTO DIFF AM CDT procedure are in the results section. ESTIMATED GFR Routine 12/13/2017 3:03 Results for this AM CDT procedure are in the results section. PHOSPHORUS LEVEL Routine 12/13/2017 3:03 Results for this AM CDT procedure are in the results section. MAGNESIUM LEVEL Routine 12/13/2017 3:03 Results for this AM CDT procedure are in the results section. BASIC METABOLIC PANEL Routine 12/13/2017 3:03 Results for this AM CDT procedure are in the results section. HC COMPLETE BLD COUNT Routine 12/13/2017 2:54 Results for this W/AUTO DIFF AM CDT procedure are in the results section. ECG 12-LEAD Routine 12/12/2017 10:06 Results for this PM CDT procedure are in the results section. ECG 12-LEAD Routine 12/12/2017 1:51 Results for this PM CDT procedure are in the results section. CYTOLOGY Routine 12/12/2017 12:07 Results for this (NON-GYNECOLOGICAL) PM CDT procedure are in REQUEST the results section. SURGICAL PATHOLOGY Routine 12/12/2017 11:58 Results for this REQUEST AM CDT procedure are in the results section. SURGICAL PATHOLOGY Routine 12/12/2017 11:58 Results for this REQUEST AM CDT procedure are in the results section. CYTOMEGALOVIRUS BY PCR Timed 12/12/2017 8:45 Lung infiltrate Results for this AM CDT procedure are in the results section. VARICELLA ZOSTER BY PCR Timed 12/12/2017 8:45 Lung infiltrate Results for this AM CDT procedure are in the results section. HERPES SIMPLEX VIRUS BY Timed 12/12/2017 8:45 Lung infiltrate Results for this PCR AM CDT procedure are in the results section. BAL CELL COUNT AND Timed 12/12/2017 8:45 Lung infiltrate Results for this DIFFERENTIAL AM CDT procedure are in the results section. CYTOMEGALOVIRUS BY PCR Timed 12/12/2017 8:45 Lung infiltrate Results for this AM CDT procedure are in the results section. VARICELLA ZOSTER BY PCR Timed 12/12/2017 8:45 Lung infiltrate Results for this AM CDT procedure are in the results section. HERPES SIMPLEX VIRUS BY Timed 12/12/2017 8:45 Lung infiltrate Results for this PCR AM CDT procedure are in the results section. GRAM STAIN Timed 12/12/2017 8:45 Results for this AM CDT procedure are in the results section. RESPIRATORY CULTURE Timed 12/12/2017 8:45 Results for this AM CDT procedure are in the results section. AFB STAIN Timed 12/12/2017 8:45 Results for this AM CDT procedure are in the results section. FUNGUS SMEAR Timed 12/12/2017 8:45 Results for this AM CDT procedure are in the results section. RESPIRATORY PATHOGEN Timed 12/12/2017 8:45 Lung infiltrate Results for this PANEL AM CDT procedure are in the results section. AFB CULTURE Timed 12/12/2017 8:45 Lung infiltrate Results for this AM CDT procedure are in the results section. NOCARDIA CULTURE Timed 12/12/2017 8:45 Lung infiltrate Results for this AM CDT procedure are in the results section. LEGIONELLA CULTURE Timed 12/12/2017 8:45 Lung infiltrate Results for this AM CDT procedure are in the results section. FUNGUS CULTURE Timed 12/12/2017 8:45 Lung infiltrate Results for this AM CDT procedure are in the results section. AFB STAIN Timed 12/12/2017 8:45 Results for this AM CDT procedure are in the results section. FUNGUS SMEAR Timed 12/12/2017 8:45 Results for this AM CDT procedure are in the results section. RESPIRATORY PATHOGEN Timed 12/12/2017 8:45 Lung infiltrate Results for this PANEL AM CDT procedure are in the results section. AFB CULTURE Timed 12/12/2017 8:45 Lung infiltrate Results for this AM CDT procedure are in the results section. NOCARDIA CULTURE Timed 12/12/2017 8:45 Lung infiltrate Results for this AM CDT procedure are in the results section. LEGIONELLA CULTURE Timed 12/12/2017 8:45 Lung infiltrate Results for this AM CDT procedure are in the results section. FUNGUS CULTURE Timed 12/12/2017 8:45 Lung infiltrate Results for this AM CDT procedure are in the results section. CYTOLOGY Routine 12/12/2017 8:37 Results for this (NON-GYNECOLOGICAL) AM CDT procedure are in REQUEST the results section. CYTOLOGY Routine 12/12/2017 8:36 Results for this (NON-GYNECOLOGICAL) AM CDT procedure are in REQUEST the results section. AK AN ELECTIVE Routine 12/12/2017 7:54 ENDOTRACHEAL AIRWAY AM CDT Procedure Note - Terrell Joyner MD - 12/12/2017 7:54 AM CDT Airway Date/Time: 12/12/2017 7:46 AM Performed by: TERRELL JOYNER Authorized by: TERRELL JOYNER Location: [place] Urgency: Elective Difficult Airway: No Preoxygenated with 100% O2: Yes Mask Ventilation: Easy mask Final Airway Type: Endotracheal airway Final Endotracheal Airway: ETT Cuffed: Yes Technique Used: Direct laryngoscopy Devices/Methods Used in Placement: Intubating stylet Insertion Site: Oral Blade Type: Heriberto Laryngoscope Blade/Videolaryngoscope Blade Size: 4 ETT Size (mm): 8.0 Cuff at minimum occlusion pressure: Yes Measured from: Lips ETT to Lips (cm): 119 Placement Verified by: CO2 detection, direct visualization and fiber optic visualization Laryngoscopic view: Grade I - full view of glottis Rapid Sequence Induction (RSI): No Number of Attempts at Approach: 1 BRONCHOSCOPY 12/12/2017 7:30 AM Lung infiltrate CDT CYTOLOGY Routine 12/12/2017 7:30 AM Results for this (NON-GYNECOLOGICAL) CDT procedure are in REQUEST the results section. CYTOLOGY Routine 12/12/2017 7:30 AM Results for this (NON-GYNECOLOGICAL) CDT procedure are in REQUEST the results section. ESTIMATED GFR Routine 12/12/2017 4:00 AM Results for this CDT procedure are in the results section. PHOSPHORUS LEVEL Routine 12/12/2017 4:00 AM Results for this CDT procedure are in the results section. MAGNESIUM LEVEL Routine 12/12/2017 4:00 AM Results for this CDT procedure are in the results section. BASIC METABOLIC PANEL Routine 12/12/2017 4:00 AM Results for this CDT procedure are in the results section. HC COMPLETE BLD COUNT Routine 12/12/2017 3:55 AM Results for this W/AUTO DIFF CDT procedure are in the results section. B NATRIURETIC PEPTIDE Routine 12/12/2017 3:50 AM Results for this CDT procedure are in the results section. ECG 12-LEAD Routine 12/11/2017 11:51 PM Results for this CDT procedure are in the results section. ECG 12-LEAD STAT 12/11/2017 8:27 PM Results for this CDT procedure are in the results section. ECG 12-LEAD Routine 12/11/2017 11:23 AM Results for this CDT procedure are in the results section. ECG 12-LEAD Routine 12/11/2017 9:15 AM Results for this CDT procedure are in the results section. ECHOCARDIOGRAM 2D Routine 12/11/2017 9:14 AM Results for this COMPLETE W MMODE CDT procedure are in SPECTRAL COLOR DOPPLER the results (06066) section. HC COMPLETE BLD COUNT Routine 12/11/2017 5:05 AM Results for this W/AUTO DIFF CDT procedure are in the results section. ESTIMATED GFR Routine 12/11/2017 4:00 AM Results for this CDT procedure are in the results section. HEPATIC FUNCTION PANEL Routine 12/11/2017 4:00 AM Results for this CDT procedure are in the results section. PHOSPHORUS LEVEL Routine 12/11/2017 4:00 AM Results for this CDT procedure are in the results section. MAGNESIUM LEVEL Routine 12/11/2017 4:00 AM Results for this CDT procedure are in the results section. BASIC METABOLIC PANEL Routine 12/11/2017 4:00 AM Results for this CDT procedure are in the results section. ECG 12-LEAD Routine 12/11/2017 12:16 AM Results for this CDT procedure are in the results section. ECG 12-LEAD Routine 12/10/2017 12:08 PM Results for this CDT procedure are in the results section. ECG 12-LEAD Routine 12/10/2017 10:59 AM Results for this CDT procedure are in the results section. ECG 12-LEAD Routine 12/10/2017 7:46 AM Results for this CDT procedure are in the results section. ESTIMATED GFR Routine 12/10/2017 5:15 AM Results for this CDT procedure are in the results section. HEPATIC FUNCTION PANEL Routine 12/10/2017 5:15 AM Results for this CDT procedure are in the results section. PHOSPHORUS LEVEL Routine 12/10/2017 5:15 AM Results for this CDT procedure are in the results section. MAGNESIUM LEVEL Routine 12/10/2017 5:15 AM Results for this CDT procedure are in the results section. HC COMPLETE BLD COUNT Routine 12/10/2017 5:15 AM Results for this W/AUTO DIFF CDT procedure are in the results section. BASIC METABOLIC PANEL Routine 12/10/2017 5:15 AM Results for this CDT procedure are in the results section. ECG 12-LEAD Routine 12/09/2017 9:19 PM Results for this CDT procedure are in the results section. HC COMPLETE BLD COUNT Routine 12/09/2017 5:30 AM Results for this W/AUTO DIFF CDT procedure are in the results section. ESTIMATED GFR Routine 12/09/2017 4:00 AM Results for this CDT procedure are in the results section. HEPATIC FUNCTION PANEL Routine 12/09/2017 4:00 AM Results for this CDT procedure are in the results section. PHOSPHORUS LEVEL Routine 12/09/2017 4:00 AM Results for this CDT procedure are in the results section. MAGNESIUM LEVEL Routine 12/09/2017 4:00 AM Results for this CDT procedure are in the results section. BASIC METABOLIC PANEL Routine 12/09/2017 4:00 AM Results for this CDT procedure are in the results section. ARTERIAL BLOOD GAS STAT 12/09/2017 12:15 AM Results for this CDT procedure are in the results section. ESTIMATED GFR STAT 12/08/2017 11:49 PM Results for this CDT procedure are in the results section. T4, FREE STAT 12/08/2017 11:49 PM Results for this CDT procedure are in the results section. THYROID STIMULATING STAT 12/08/2017 11:49 PM Results for this HORMONE CDT procedure are in the results section. PHOSPHORUS LEVEL STAT 12/08/2017 11:49 PM Results for this CDT procedure are in the results section. MAGNESIUM LEVEL STAT 12/08/2017 11:49 PM Results for this CDT procedure are in the results section. BASIC METABOLIC PANEL STAT 12/08/2017 11:49 PM Results for this CDT procedure are in the results section. TROPONIN STAT 12/08/2017 11:49 PM Results for this CDT procedure are in the results section. ECG 12-LEAD STAT 12/08/2017 11:35 PM Results for this CDT procedure are in the results section. US HEPATIC STAT 12/08/2017 8:56 PM Results for this CDT procedure are in the results section. RESPIRATORY PATHOGEN Routine 12/08/2017 6:38 PM Results for this PANEL CDT procedure are in the results section. GRAM STAIN Routine 12/08/2017 6:37 PM Results for this CDT procedure are in the results section. SPUTUM CULTURE Routine 12/08/2017 6:37 PM Results for this CDT procedure are in the results section. BLOOD CULTURE, AEROBIC Routine 12/08/2017 4:28 PM Results for this & ANAEROBIC CDT procedure are in the results section. ARTERIAL BLOOD GAS STAT 12/08/2017 3:45 PM Results for this CDT procedure are in the results section. BLOOD CULTURE, AEROBIC Routine 12/08/2017 3:30 PM Results for this & ANAEROBIC CDT procedure are in the results section. XR CHEST 1 VW PORTABLE STAT 12/08/2017 3:13 PM Results for this CDT procedure are in the results section. D-DIMER STAT 12/08/2017 3:10 PM Results for this CDT procedure are in the results section. AK CRITICAL CARE, E/M Routine 12/08/2017 2:38 PM Results for this 30-74 MINUTES CDT procedure are in the results section. ESTIMATED GFR Routine 12/08/2017 2:35 PM Results for this CDT procedure are in the results section. B NATRIURETIC PEPTIDE Routine 12/08/2017 2:35 PM Results for this CDT procedure are in the results section. TROPONIN Routine 12/08/2017 2:35 PM Results for this CDT procedure are in the results section. COMPREHENSIVE METABOLIC Routine 12/08/2017 2:35 PM Results for this PANEL CDT procedure are in the results section. PARTIAL THROMBOPLASTIN Routine 12/08/2017 2:35 PM Results for this TIME (PTT) CDT procedure are in the results section. PROTHROMBIN TIME WITH Routine 12/08/2017 2:35 PM Results for this INR CDT procedure are in the results section. HC COMPLETE BLD COUNT Routine 12/08/2017 2:35 PM Results for this W/AUTO DIFF CDT procedure are in the results section. ECG 12-LEAD STAT 12/08/2017 2:28 PM Results for this CDT procedure are in the results section. XR CHEST EXTERNAL STUDY Routine 11/07/2017 9:37 AM Results for this CDT procedure are in the results section. XR CHEST 1 VW Routine 11/07/2017 12:[address] CHEST WO CONTRAST Routine 10/31/2017 12:00 AM CDT HC COMPLETE BLD COUNT Routine 09/15/2017 5:23 AM Results for this W/AUTO DIFF CDT procedure are in the results section. ZZESTIMATED GFR Routine 09/15/2017 4:00 AM Results for this CDT procedure are in the results section. BASIC METABOLIC PANEL Routine 09/15/2017 4:00 AM Results for this CDT procedure are in the results section. EP COMPLETE EP STUDY W Routine 09/14/2017 1:17 PM PAF (paroxysmal Results for this ABLATION PULMONARY VEIN CDT atrial procedure are in fibrillation) the results section. GLUCOSE LEVEL, SYRINGE STAT 09/14/2017 12:50 PM Results for this CDT procedure are in the results section. IONIZED CALCIUM, STAT 09/14/2017 12:50 PM Results for this ARTERIAL CDT procedure are in the results section. HEMOGLOBIN, SYRINGE STAT 09/14/2017 12:50 PM Results for this CDT procedure are in the results section. POTASSIUM, SYRINGE STAT 09/14/2017 12:50 PM Results for this CDT procedure are in the results section. SODIUM LEVEL, SYRINGE STAT 09/14/2017 12:50 PM Results for this CDT procedure are in the results section. ARTERIAL BLOOD GAS, STAT 09/14/2017 12:50 PM Results for this CORRECTED CDT procedure are in the results section. ACTIVATED CLOTTING TIME Routine 09/14/2017 12:44 PM Results for this CDT procedure are in the results section. ACTIVATED CLOTTING TIME Routine 09/14/2017 12:11 PM Results for this CDT procedure are in the results section. ACTIVATED CLOTTING TIME Routine 09/14/2017 11:33 AM Results for this CDT procedure are in the results section. ACTIVATED CLOTTING TIME Routine 09/14/2017 11:00 AM Results for this CDT procedure are in the results section. ACTIVATED CLOTTING TIME Routine 09/14/2017 10:13 AM Results for this CDT procedure are in the results section. ACTIVATED CLOTTING TIME Routine 09/14/2017 10:04 AM Results for this CDT procedure are in the results section. ACTIVATED CLOTTING TIME Routine 09/14/2017 9:57 AM Results for this CDT procedure are in the results section. AK AN ELECTIVE Routine 09/14/2017 9:28 AM ENDOTRACHEAL AIRWAY CDT Procedure Note - Isabela Archibald CRNA - 09/14/2017 9:28 AM CDT Airway Date/Time: 09/14/2017 8:59 AM Performed by: ISABELA GROSSMAN Authorized by: CRISTINA JUAREZ Location: [place] Urgency: Elective Difficult Airway: No Anesthesiologist: CRISTINA JUAREZ Resident/HEAT PLANT SPECIALIST/AA: CRISTINA JUAREZ Performed by: resident/HEAT PLANT SPECIALIST/AA Preoxygenated with 100% O2: Yes C-spine Precautions [...] DIFF procedure are in the results section. ZZESTIMATED GFR Routine 06/20/2017 4:00 AM CDT BASIC METABOLIC PANEL Routine 06/20/2017 4:00 AM CDT HC COMPLETE BLD COUNT W/AUTO Routine 06/19/2017 5:30 AM CDT Results for this DIFF procedure are in the results section. ZZESTIMATED GFR Routine 06/19/2017 4:00 AM CDT MAGNESIUM LEVEL Routine 06/19/2017 4:00 AM CDT BASIC METABOLIC PANEL Routine 06/19/2017 4:00 AM CDT ECHOCARDIOGRAM 2D COMPLETE W Routine 06/18/2017 10:22 PM CDT Results for this MMODE SPECTRAL COLOR DOPPLER procedure are in the (46089) results section. AST (SGOT) Routine 06/18/2017 7:15 AM CDT POTASSIUM LEVEL Routine 06/18/2017 7:15 AM CDT ALT (SGPT) Routine 06/18/2017 7:15 AM CDT HC COMPLETE BLD COUNT W/AUTO Routine 06/18/2017 4:04 AM CDT Results for this DIFF procedure are in the results section. ZZESTIMATED GFR Routine 06/18/2017 4:00 AM CDT T4, FREE Routine 06/18/2017 4:00 AM CDT THYROID STIMULATING HORMONE Routine 06/18/2017 4:00 AM CDT MAGNESIUM LEVEL Routine 06/18/2017 4:00 AM CDT COMPREHENSIVE METABOLIC Routine 06/18/2017 4:00 AM CDT Results for this PANEL procedure are in the results section. after 01/26/2017 Results Estimated GFR (01/23/2018 11:20 AM)Only the most recent of29 resultswithin the time period is included. Estimated GFR >=90 mL/min/1.73 m2 [facility] DEPARTMENT OF Comment: PATHOLOGY AND GENOMIC CatergoryUnitsInterpretation MEDICINE G1 >=90 Normal or high G2 60-89Mildly decreased [id number] to moderately decreased [id number] to severely decreased G4 15-29Severely decreased G5 <15Kidney failure The eGFR was calculated using the Chronic Kidney Disease Epidemiology Collaboration (CKD-EPI) equation. Interpretation is based on recommendations of the National Kidney Foundation-Kidney Disease Outcomes Quality Initiative (NKF-KDOQI) published in 2014. Specimen Plasma specimen Performing Organization Address City/State/Zipcode Phone Number [facility] DEPARTMENT OF PATHOLOGY AND [employer] [place] [address] [facility] CBC with platelet and differential (01/23/2018 11:20 AM)Only the most recent of30 resultswithin the time period is included. WBC 4.94 4.50 - 11.00 k/uL [facility] DEPARTMENT OF PATHOLOGY AND GENOMIC MEDICINE RBC 3.19 (L) 4.20 - 5.50 m/uL [facility] DEPARTMENT OF PATHOLOGY AND GENOMIC MEDICINE HGB 8.7 (L) 12.0 - 16.0 g/dL [facility] DEPARTMENT OF PATHOLOGY AND GENOMIC MEDICINE HCT 28.5 (L) 37.0 - 47.0 % [facility] DEPARTMENT OF PATHOLOGY AND GENOMIC MEDICINE MCV 89.3 82.0 - 100.0 fL [facility] DEPARTMENT OF PATHOLOGY AND GENOMIC MEDICINE MCH 27.3 27.0 - 34.0 pg [facility] DEPARTMENT OF PATHOLOGY AND GENOMIC MEDICINE MCHC 30.5 (L) 31.0 - 37.0 g/dL [facility] DEPARTMENT OF PATHOLOGY AND GENOMIC MEDICINE RDW - SD 60.3 (H) 37.0 - 55.0 fL [facility] DEPARTMENT OF PATHOLOGY AND GENOMIC MEDICINE MPV 9.6 8.8 - 13.2 fL [facility] DEPARTMENT OF PATHOLOGY AND GENOMIC MEDICINE Platelet count 167 150 - 400 k/uL [facility] DEPARTMENT OF PATHOLOGY AND GENOMIC MEDICINE Neutrophils 87.5 (H) 39.0 - 69.0 % [facility] DEPARTMENT OF PATHOLOGY AND GENOMIC MEDICINE Lymphocytes 3.2 (L) 25.0 - 45.0 % [facility] DEPARTMENT OF PATHOLOGY AND GENOMIC MEDICINE Monocytes 8.9 0.0 - 10.0 % [facility] DEPARTMENT OF PATHOLOGY AND GENOMIC MEDICINE Eosinophils 0.2 0.0 - 5.0 % [facility] DEPARTMENT OF PATHOLOGY AND GENOMIC MEDICINE Basophils 0.2 0.0 - 1.0 % [facility] DEPARTMENT OF PATHOLOGY AND GENOMIC MEDICINE Specimen Blood Performing Organization Address City/[facility]/Zipcode Phone Number [facility] DEPARTMENT OF PATHOLOGY AND [address] [place] [phone] [facility] MEDICINE Magnesium level (01/23/2018 11:20 AM)Only the most recent of27 resultswithin the time period is included. Magnesium 1.3 (L) 1.6 - 2.4 mg/dL [facility] DEPARTMENT OF PATHOLOGY AND GENOMIC MEDICINE Specimen Plasma specimen Performing Organization Address City/[facility] Phone Number [facility] DEPARTMENT OF PATHOLOGY AND [address] [place] [phone] [facility] MEDICINE Comprehensive metabolic panel (01/23/2018 11:20 AM)Only the most recent of8 resultswithin the time period is included. Sodium 137 135 - 148 mEq/L [facility] DEPARTMENT OF PATHOLOGY AND GENOMIC MEDICINE Potassium 4.1 3.5 - 5.0 mEq/L [facility] DEPARTMENT OF PATHOLOGY AND GENOMIC MEDICINE Chloride 103 98 - 112 mEq/L [facility] DEPARTMENT OF PATHOLOGY AND GENOMIC MEDICINE CO2 26 24 - 31 mEq/L [facility] DEPARTMENT OF PATHOLOGY AND GENOMIC MEDICINE Anion gap 8@ANIO 7 - 15 mEq/L [facility] DEPARTMENT OF PATHOLOGY AND GENOMIC MEDICINE BUN 6 (L) 8 - 23 mg/dL [facility] DEPARTMENT OF PATHOLOGY AND GENOMIC MEDICINE Creatinine 0.50 0.50 - 0.90 mg/dL [facility] DEPARTMENT OF PATHOLOGY AND GENOMIC MEDICINE Glucose 148 (H) 65 - 99 mg/dL [facility] DEPARTMENT OF PATHOLOGY AND GENOMIC MEDICINE Calcium 8.6 (L) 8.8 - 10.2 mg/dL [facility] DEPARTMENT OF PATHOLOGY AND GENOMIC MEDICINE Protein 5.4 (L) 6.3 - 8.3 g/dL [facility] DEPARTMENT OF Comment: PATHOLOGY AND GENOMIC [place] 4.6-7.0 g/dL MEDICINE 1 week 4.4-7.6 g/dL 7 months-1year5.1-7.3 g/dL 1-2 years5.6-7.5 g/dL >3 years6.0-8.0 g/dL 18-150 6.3-8.3 g/dL Albumin 2.9 (L) 3.5 - 5.0 g/dL [facility] DEPARTMENT OF PATHOLOGY AND GENOMIC MEDICINE A/G ratio 1.2 0.7 - 3.8 [facility] DEPARTMENT OF PATHOLOGY AND GENOMIC MEDICINE Alkaline phosphatase 63 35 - 104 U/L [facility] DEPARTMENT OF PATHOLOGY AND GENOMIC MEDICINE AST 11 10 - 35 U/L [facility] DEPARTMENT OF PATHOLOGY AND GENOMIC MEDICINE ALT 8 5 - 50 U/L [facility] DEPARTMENT OF PATHOLOGY AND GENOMIC MEDICINE Total bilirubin 0.3 0.0 - 1.2 mg/dL [facility] DEPARTMENT OF PATHOLOGY AND GENOMIC MEDICINE Specimen Plasma specimen Performing Organization Address City/[facility] Phone Number [facility] DEPARTMENT OF PATHOLOGY AND [address] [place] [address] MEDICINE Phosphorus level (01/22/2018 4:00 AM)Only the most recent of13 resultswithin the time period is included. Phosphorus 2.5 2.4 - 4.5 mg/dL [facility] DEPARTMENT OF PATHOLOGY AND GENOMIC MEDICINE Specimen Plasma specimen Performing Organization Address [facility] Phone Number [facility] DEPARTMENT PATHOLOGY AND [address] [place] [address] Basic metabolic panel (01/22/2018 4:00 AM)Only the most recent of25 resultswithin the time period is included. Sodium 140 135 - 148 mEq/L [facility] DEPARTMENT OF PATHOLOGY AND GENOMIC MEDICINE Potassium 3.8 3.5 - 5.0 mEq/L [facility] DEPARTMENT OF PATHOLOGY AND GENOMIC MEDICINE Chloride 104 98 - 112 mEq/L [facility] DEPARTMENT OF PATHOLOGY AND GENOMIC MEDICINE CO2 27 24 - 31 mEq/L [facility] DEPARTMENT OF PATHOLOGY AND GENOMIC MEDICINE Anion gap 9@ANIO 7 - 15 mEq/L [facility] DEPARTMENT OF PATHOLOGY AND GENOMIC MEDICINE BUN 8 8 - 23 mg/dL [facility] DEPARTMENT OF PATHOLOGY AND GENOMIC MEDICINE Creatinine 0.53 0.50 - 0.90 mg/dL [facility] DEPARTMENT OF PATHOLOGY AND GENOMIC MEDICINE Glucose 117 (H) 65 - 99 mg/dL [facility] DEPARTMENT OF PATHOLOGY AND GENOMIC MEDICINE Calcium 8.4 (L) 8.8 - 10.2 mg/dL [facility] DEPARTMENT OF PATHOLOGY AND GENOMIC MEDICINE Specimen Plasma specimen Performing Organization Address [facility] Phone Number [facility] DEPARTMENT OF PATHOLOGY AND [address] [place] [address] MEDICINE Ionized calcium (01/21/2018 4:00 AM) pH 7.46 [facility] DEPARTMENT OF PATHOLOGY AND GENOMIC MEDICINE Ionized calcium 1.15 1.11 - 1.32 mmol/L [facility] DEPARTMENT OF PATHOLOGY AND GENOMIC MEDICINE Specimen Plasma specimen Performing Organization Address City/[facility] Phone Number [facility] DEPARTMENT OF PATHOLOGY AND [address] [place] [phone] [facility] Troponin (01/21/2018)Only the most recent of6 resultswithin the time period is included. Troponin <0.30 0.00 - 0.30 ng/mL [facility] DEPARTMENT OF PATHOLOGY Comment: AND GENOMIC MEDICINE 0.30 - 1.49 ng/mlMay indicate increased risk of acute coronary syndrome. >=1.5 ng/mlConsistent with acute myocardial infarction. The diagnostic value of a single normal or non-diagnostic result is questionable.Serial samples at 2-6 hour intervals are required to rule out acute myocardial injury. Specimen Plasma specimen Performing Organization Address [facility] Phone Number [facility] DEPARTMENT OF PATHOLOGY AND [address] [place] [phone] [place] [address] ECG 12 lead (01/20/2018 3:29 PM)Only the most recent of17 resultswithin the time period is included. Ventricular rate 96 [facility] Atrial rate 96 [facility] MUSE AK interval 134 [facility] MUSE QRSD interval 86 [facility] QT interval 382 [facility] QTC interval 482 [facility] P axis 1 25 [facility] QRS axis 1 14 [facility] T wave axis 75 [facility] MUSE EKG impression Sinus rhythm with premature atrial complexes in a pattern of bigeminy-Otherwise normal ECG-In automated comparison with ECG of 19-JAN-2018 13 :09,-premature atrial complexes are now present-Nonspecific T wave abnormality now evident in Lateral [facility] MUSE leads- Performing Organization Address City/[facility] Phone Number [facility] MUSE [address] [place] [phone] Thyroid stimulating hormone (01/20/2018 4:30 AM)Only the most recent of3 resultswithin the time period is included. TSH 2.21 0.27 - 4.20 uIU/mL [facility] DEPARTMENT OF PATHOLOGY AND GENOMIC MEDICINE Specimen Plasma specimen Performing Organization Address City/[facility] Phone Number [facility] DEPARTMENT OF PATHOLOGY AND [address] [place] [phone] [facility] B natriuretic peptide (01/20/2018 4:30 AM)Only the most recent of3 resultswithin the time period is included. BNP 241 (H) 0 - 100 pg/mL [facility] DEPARTMENT OF PATHOLOGY AND GENOMIC MEDICINE Specimen Blood Performing Organization Address City/[facility] Hospital[facility] Phone Number [facility] DEPARTMENT OF PATHOLOGY AND [address] [place] [address] [facility] Lipid panel (01/20/2018 4:30 AM) Cholesterol 135 <200 mg/dL [facility] DEPARTMENT OF PATHOLOGY AND GENOMIC MEDICINE Triglycerides 107 <150 mg/dL [facility] DEPARTMENT OF PATHOLOGY AND GENOMIC MEDICINE HDL cholesterol 46 >40 mg/dL [facility] DEPARTMENT OF PATHOLOGY AND GENOMIC MEDICINE LDL cholesterol 77Comment: Result <100 mg/dL [facility] DEPARTMENT OF obtained by direct LDL PATHOLOGY AND GENOMIC measurement MEDICINE Lipid panel interpretation SeeBelow [facility] DEPARTMENT OF Comment: PATHOLOGY AND GENOMIC Total Cholesterol (mg/dL) MEDICINE <200 Desirable [phone]-smog >=240High Triglycerides (mg/dL) <150 Normal [id number]-dnlb 200-499High >=500Very high HDL Cholesterol (mg/dL) <40Low (male) <40Low (female) LDL Cholesterol (mg/dL) <100 Optimal 100-129Near or above optimal [phone]-gzeo 160-189High >=190Very high Risk Catergories that modify LDL goals. Risk CatergoriesLDL goal (mg/dL) CHD and CHD risk equivalent<100 (10-year risk >20%) Multiple (2+) risk factors <130 (10-year risk=<20%) 0-1 risk factors <160 (<10-year risk) Defining levels of lipids in metabolic syndrome Triglycerides>=150 mg/dL HDL Cholesterol Men<40 mg/dL Women<40 mg/dL Non-HDL cholesterol is a second target for therapy in persons with high triglycerides (>=200 mg/dL) Specimen Plasma specimen Performing Organization Address City/[facility]/Zipcode Phone Number [facility] DEPARTMENT OF PATHOLOGY AND [address] [place] [phone] [facility] Blood culture, aerobic & anaerobic (01/19/2018 8:10 PM)Only the most recent of8 resultswithin the time period is included. Blood culture isolate No growth after 5 days of incubation. [facility] DEPARTMENT OF Comment: PATHOLOGY AND GENOMIC Specimen Information MEDICINE Specimen Source: Blood Specimen Site: Unspecified Specimen Blood Performing Organization Address City/[facility]code Phone Number [facility] DEPARTMENT OF PATHOLOGY AND [address] [place] [address] GENOMIC MEDICINE XR Chest 2 Vw (01/19/2018 6:33 PM)Only the most recent of2 resultswithin the time period is included. Narrative Performed At EXAMINATION:XR CHEST 2 VW [facility] CLINICAL HISTORY:Coughnew onset, Shortness of breath, fever COMPARISON:December 27, 2017 IMPRESSION: There is an indwelling port on the left.Spinal instrumentation is noted in the cervical area. There is cardiomegaly mediastinal widening.There is complete opacification of the right apex in a fashion similar to the preceding exam.There is aerated lung at the right lung base with an area of infiltrate or density not density noted just over the diaphragm.Left lung avila demonstrate mild pulmonary vascular prominence with no infiltrate. [facility]-[id number] Procedure Note Interface, Radiology Results Incoming - 01/19/2018 6:39 PM CDT EXAMINATION: XR CHEST 2 VW CLINICAL HISTORY: Cough new onset, Shortness of breath, fever COMPARISON: December 27, 2017 IMPRESSION: There is an indwelling port on the left. Spinal instrumentation is noted in the cervical area. There is cardiomegaly mediastinal widening. There is complete opacification of the right apex in a fashion similar to the preceding exam. There is aerated lung at the right lung base with an area of infiltrate or density not density noted just over the diaphragm. Left lung avila demonstrate mild pulmonary vascular prominence with no infiltrate. [facility]-[id number] Performing Organization Address City/State/Zipcode Phone Number [facility] [address] [place] [address] Urinalysis screen and microscopy, with reflex to culture (01/19/2018 2:52 PM) Only the most recent of2 resultswithin the time period is included. Specimen site Clean catch [facility] DEPARTMENT OF PATHOLOGY AND GENOMIC MEDICINE Color, UA Pamela [facility] DEPARTMENT OF PATHOLOGY AND GENOMIC MEDICINE Appearance, UA Clear [facility] DEPARTMENT OF PATHOLOGY AND GENOMIC MEDICINE Specific gravity, UA 1.014 1.001 - 1.035 [facility] DEPARTMENT OF PATHOLOGY AND GENOMIC MEDICINE pH, UA 6.0 5.0 - 8.5 [facility] DEPARTMENT OF PATHOLOGY AND GENOMIC MEDICINE Protein, UA 3+ (A) Negative [facility] DEPARTMENT OF PATHOLOGY AND GENOMIC MEDICINE Glucose, UA 1+ (A) Negative [facility] DEPARTMENT OF PATHOLOGY AND GENOMIC MEDICINE Ketones, UA Negative Negative [facility] DEPARTMENT OF PATHOLOGY AND GENOMIC MEDICINE Bilirubin, UA Negative Negative [facility] DEPARTMENT OF PATHOLOGY AND GENOMIC MEDICINE Blood, UA Negative Negative [facility] DEPARTMENT OF PATHOLOGY AND GENOMIC MEDICINE Nitrite, UA Negative Negative [facility] DEPARTMENT OF PATHOLOGY AND GENOMIC MEDICINE Urobilinogen, UA <2.0 <2.0 [facility] DEPARTMENT OF PATHOLOGY AND GENOMIC MEDICINE Leukocyte esterase, UA Negative Negative [facility] DEPARTMENT OF PATHOLOGY AND GENOMIC MEDICINE Epithelial cells, UA 1 /HPF [facility] DEPARTMENT OF PATHOLOGY AND GENOMIC MEDICINE WBC, UA 5 (H) 0 - 4 /HPF [facility] DEPARTMENT OF PATHOLOGY AND GENOMIC MEDICINE RBC, UA 2 0 - 5 /HPF [facility] DEPARTMENT OF PATHOLOGY AND GENOMIC MEDICINE Bacteria, UA Few None seen [facility] DEPARTMENT OF PATHOLOGY AND GENOMIC MEDICINE Yeast, UA None seen [facility] DEPARTMENT OF PATHOLOGY AND GENOMIC MEDICINE Yeast with pseudohyphae, UA None seen [facility] DEPARTMENT OF PATHOLOGY AND GENOMIC MEDICINE Specimen Urine Performing Organization Address City/State/Zipcode Phone Number [facility] DEPARTMENT OF PATHOLOGY AND [address] [place] [address] GENOMIC MEDICINE Gastrointestinal panel (01/19/2018 2:52 PM)Only the most recent of2 resultswithin the time period is included. Gastrointestinal panel Positive for Norovirus GI/GII [facility] DEPARTMENT OF PATHOLOGY AND GENOMIC Negative for all other pathogens tested: MEDICINE Negative for Salmonella Negative for Campylobacter Negative for Diarrheagenic E coli/Shigella Negative for Shiga-like toxin-producing E coli Negative for Plesiomonas shigelloides Negative for Yersinia enterocolitica Negative for Vibrio species Negative for Clostridium difficile (Toxin A/B) Negative for Cryptosporidium Negative for Giardia lamblia Negative for Cyclospora cayeteanensis Negative for Entamoeba histolytica Negative for Adenovirus F 40/41 Negative for Astrovirus Negative for Rotavirus A Negative for Sapovirus Negative for E coli 0157 This real-time PCR assay detects the presence of nucleic acids (RNA or DNA) for the gastrointestinal pathogens listed. A result of "Not-detected" does not exclude the possibility of the presence of one or more pathogens at concentrations less than the detectable limits of the assay. (A) Comment: Specimen Information Specimen Source: Stool Specimen Site: Nonpreserved Specimen Stool - Nonpreserved Performing Organization Address City/[facility] Phone Number [facility] DEPARTMENT OF PATHOLOGY AND [address] [place] [address] [place] Gram stain (01/19/2018 2:52 PM)Only the most recent of4 resultswithin the time period is included. Gram stain result Rare WBC's [facility] DEPARTMENT OF PATHOLOGY No organisms seen AND Melon #usemelon MEDICINE Comment: Specimen Information Specimen Source: Urine Specimen Site: Clean catch Specimen Urine Performing Organization Address City/[facility] Phone Number [facility] DEPARTMENT OF PATHOLOGY AND [address] [place] [address] [place] Urine culture (01/19/2018 2:52 PM)Only the most recent of2 resultswithin the time period is included. Urine culture isolate Mixed Gram positive isaura [facility] DEPARTMENT OF 10-5 cfu/ml PATHOLOGY AND Melon #usemelon (A) MEDICINE Comment: Specimen Information Specimen Source: Urine Specimen Site: Clean catch Urine culture isolate Mixed Gram negative rods [facility] DEPARTMENT OF 10-4 cfu/ml PATHOLOGY AND Melon #usemelon (A) MEDICINE Specimen Urine Performing Organization Address [facility] Phone Number [facility] DEPARTMENT OF PATHOLOGY AND [address] [place] [address] Melon #usemelon [facility] CT Abdomen Pelvis Wo Contrast (01/19/2018 1:59 PM) Narrative Performed At EXAMINATION:CT ABDOMEN PELVIS WO CONTRAST [facility] CLINICAL HISTORY:abd pain diarrhea TECHNIQUE: Multiple axial images of the abdomen and pelvis were obtained without intravenous administration of iodinated contrast. Sagittal and coronal computerized reformatted images were also obtained. The lack of intravenous contrast reduces the sensitivity of detecting solid organ disease. COMPARISON:CT chest, abdomen and pelvis 12/16/2017 FINDINGS: 1.There is no bowel obstruction or evidence of acute bowel inflammation. Sigmoid diverticulosis is present. The appendix is not seen. The stomach is unremarkable. 2.There are 2 stable hypodense splenic masses, measuring 3 cm and 1 cm. 3.The unenhanced liver, pancreas, and adrenals are normal. The gallbladder is absent. 4.No hydronephrosis or nephrolithiasis is seen. Renal cortical lesions are probably all cysts, and are stable, though incompletely characterized without contrast. The urinary bladder is normal. 5.There is no ascites or lymphadenopathy in the abdomen or pelvis. 6.Right upper lobe postobstructive atelectasis/consolidation and mediastinal metastatic lymph nodes are incompletely imaged. 7.There is no acute skeletal finding. Postoperative changes in the lumbar spine sacral spine and posterior right iliac bone are noted. The lucency in the right sixth rib is redemonstrated. IMPRESSION: No acute abdominal finding to explain abdominal pain or diarrhea. [facility]-[id number] Procedure Note [facility], Radiology Results Incoming - 01/19/2018 2:14 PM CDT EXAMINATION: CT ABDOMEN PELVIS WO CONTRAST CLINICAL HISTORY: abd pain diarrhea TECHNIQUE: Multiple axial images of the abdomen and pelvis were obtained without intravenous administration of iodinated contrast. Sagittal and coronal computerized reformatted images were also obtained. The lack of intravenous contrast reduces the sensitivity of detecting solid organ disease. COMPARISON: CT chest, abdomen and pelvis 12/16/2017 FINDINGS: 1. There is no bowel obstruction or evidence of acute bowel inflammation. Sigmoid diverticulosis is present. The appendix is not seen. The stomach is unremarkable. 2. There are 2 stable hypodense splenic masses, measuring 3 cm and 1 cm. 3. The unenhanced liver, pancreas, and adrenals are normal. The gallbladder is absent. 4. No hydronephrosis or nephrolithiasis is seen. Renal cortical lesions are probably all cysts, and are stable, though incompletely characterized without contrast. The urinary bladder is normal. 5. There is no ascites or lymphadenopathy in the abdomen or pelvis. 6. Right upper lobe postobstructive atelectasis/consolidation and mediastinal metastatic lymph nodes are incompletely imaged. 7. There is no acute skeletal finding. Postoperative changes in the lumbar spine sacral spine and posterior right iliac bone are noted. The lucency in the right sixth rib is redemonstrated. IMPRESSION: No acute abdominal finding to explain abdominal pain or diarrhea. [facility]-[id number] Performing Organization Address City/State/Zipcode Phone Number [facility] [address] [place] [address] Manual differential (01/19/2018 1:05 PM)Only the most recent of3 resultswithin the time period is included. Manual differential PERFORMED [facility] DEPARTMENT OF PATHOLOGY AND GENOMIC MEDICINE Neutrophils 95.0 (H) 39.0 - 69.0 % [facility] DEPARTMENT OF PATHOLOGY AND GENOMIC MEDICINE Lymphocytes 1.0 (L) 25.0 - 45.0 % [facility] DEPARTMENT OF PATHOLOGY AND GENOMIC MEDICINE Monocytes 4.0 0.0 - 10.0 % [facility] DEPARTMENT OF PATHOLOGY AND GENOMIC MEDICINE Eosinophils 0.0 0.0 - 5.0 % [facility] DEPARTMENT OF PATHOLOGY AND GENOMIC MEDICINE Basophils 0.0 0.0 - 1.0 % [facility] DEPARTMENT OF PATHOLOGY AND GENOMIC MEDICINE Metamyelocytes 0 % [facility] DEPARTMENT OF PATHOLOGY AND GENOMIC MEDICINE Promyelocytes 0 % [facility] DEPARTMENT OF PATHOLOGY AND GENOMIC MEDICINE Platelet slide review Kitty adequate [facility] DEPARTMENT OF PATHOLOGY AND GENOMIC MEDICINE Ovalocytes Moderate [facility] DEPARTMENT OF PATHOLOGY AND GENOMIC MEDICINE Performing Organization Address City/[facility] Phone Number [facility] DEPARTMENT OF PATHOLOGY AND [address] [place] [address] Lipase level (01/19/2018 1:05 PM)Only the most recent of2 resultswithin the time period is included. Lipase 13 13 - 60 U/L [facility] DEPARTMENT OF PATHOLOGY AND GENOMIC MEDICINE Specimen Plasma specimen Performing Organization Address City/[facility] Phone Number [facility] DEPARTMENT OF PATHOLOGY AND [address] [place] [address] Lactic acid level (01/19/2018 1:05 PM) Lactic acid 2.1 0.5 - 2.2 mmol/L [facility] DEPARTMENT OF PATHOLOGY AND GENOMIC MEDICINE Specimen Plasma specimen Performing Organization Address City/[facility] Phone Number [facility] DEPARTMENT PATHOLOGY AND [address] [place] [address] CT Chest Wo Contrast (12/28/2017 4:15 PM)Only the most recent of2 resultswithin the time period is included. Narrative Performed At EXAMINATION: CT CHEST WO CONTRAST RADIANT CLINICAL HISTORY: 67 years Female Pneumoniaunresolved or complicated, Shortness of breath TECHNIQUE:Multiple axial images of the chest were obtained without intravenous contrast. The lack of intravenous contrast reduces the sensitivity of detecting solid organ disease and evaluating vasculature. Sagittal and coronal computerized reformatted images were also obtained. CT imaging was performed with iterative reconstruction techniques and/or automated exposure control to reduce radiation dose. COMPARISON: 12/16/2017 FINDINGS: Heart: The heart size is normal. Mitral annulus calcifications are present. There are moderate coronary artery calcifications. There is no pericardial effusion. Aorta: The thoracic aorta is diffusely atherosclerotic without evidence of aneurysm. Mediastinum: Enlarged right paratracheal, subcarinal, prevascular, and right suprahilar lymph nodes are again noted. Lungs: Right upper lobe lung mass and postobstructive pneumonia persist. Patchy peripheral airspace opacity in the posterior segment of the left upper lobe is unchanged. Focal bullous disease in the anterior left upper lobe is again noted. There is minimally increased interstitial opacities at the lung bases, slightly greater on the right. Pleura: There is a tiny dependent right pleural effusion and there is loculated pleural fluid surrounding the collapsed upper lobe. Upper abdomen: A stable hypodensity in the spleen likely represents a hemangioma. There are no adrenal masses. Osseous structures: Postoperative changes are present in the lower cervical spine. A small lucency is present in the lateral aspect of the right sixth rib. A old healed lateral right 10th rib fracture is noted. Minimal degenerative changes are present in the lower thoracic and upper lumbar spine. A left IJ portacatheter is in satisfactory position with the tip projected in the superior vena cava. IMPRESSION: 1.Persistent right upper lobe lung mass with mediastinal adenopathy. Chronic postobstructive pneumonitis right upper lobe. Loculated upper lobe pleural fluid. 2.Moderate CAD. 3.Minimally suspicious lucency lateral aspect right sixth rib. [facility]-[id number] Procedure Note [facility], Radiology Results Incoming - 12/28/2017 4:50 PM CDT EXAMINATION: CT CHEST WO CONTRAST CLINICAL HISTORY: 67 years Female Pneumonia unresolved or complicated, Shortness of breath TECHNIQUE: Multiple axial images of the chest were obtained without intravenous contrast. The lack of intravenous contrast reduces the sensitivity of detecting solid organ disease and evaluating vasculature. Sagittal and coronal computerized reformatted images were also obtained. CT imaging was performed with iterative reconstruction techniques and/or automated exposure control to reduce radiation dose. COMPARISON: 12/16/2017 FINDINGS: Heart: The heart size is normal. Mitral annulus calcifications are present. There are moderate coronary artery calcifications. There is no pericardial effusion. Aorta: The thoracic aorta is diffusely atherosclerotic without evidence of aneurysm. Mediastinum: Enlarged right paratracheal, subcarinal, prevascular, and right suprahilar lymph nodes are again noted. Lungs: Right upper lobe lung mass and postobstructive pneumonia persist. Patchy peripheral airspace opacity in the posterior segment of the left upper lobe is unchanged. Focal bullous disease in the anterior left upper lobe is again noted. There is minimally increased interstitial opacities at the lung bases, slightly greater on the right. Pleura: There is a tiny dependent right pleural effusion and there is loculated pleural fluid surrounding the collapsed upper lobe. Upper abdomen: A stable hypodensity in the spleen likely represents a hemangioma. There are no adrenal masses. Osseous structures: Postoperative changes are present in the lower cervical spine. A small lucency is present in the lateral aspect of the right sixth rib. A old healed lateral right 10th rib fracture is noted. Minimal degenerative changes are present in the lower thoracic and upper lumbar spine. A left IJ portacatheter is in satisfactory position with the tip projected in the superior vena cava. IMPRESSION: 1. Persistent right upper lobe lung mass with mediastinal adenopathy. Chronic postobstructive pneumonitis right upper lobe. Loculated upper lobe pleural fluid. 2. Moderate CAD. 3. Minimally suspicious lucency lateral aspect right sixth rib. [facility]-[id number] Performing Organization Address City/[facility] Hospitalcode Phone Number [facility] [address] [place] [address] Sputum culture (12/28/2017 12:20 PM)Only the most recent of2 resultswithin the time period is included. Sputum culture isolate Normal oral isaura isolated. [facility] DEPARTMENT OF Comment: PATHOLOGY AND GENOMIC Specimen Information MEDICINE Specimen Source: Sputum Specimen Site: Expectorated Specimen Sputum - Expectorated Performing Organization Address City/[facility]comn Phone Number [facility] DEPARTMENT OF PATHOLOGY AND [address] [place] [phone] GENOMIC MEDICINE XR Chest 1 Vw Portable (12/27/2017 6:58 PM)Only the most recent of2 resultswithin the time period is included. Narrative Performed At EXAMINATION:XR CHEST 1 VW PORTABLE RADIANT CLINICAL HISTORY:Shortness of breath COMPARISON:2 view chest from 12/21/2017 and PET/CT from 12/20/2017 IMPRESSION: An AP radiograph of the chest was submitted for interpretation. Since the previous radiograph, there has been interval development of consolidation within the right upper lobe and likely right middle lobe likely related to atelectasis likely related to a right-sided central hilar mass. Postobstructive pneumonia is also within the differential. This can be better evaluated with CT as clinically indicated. Mild perihilar prominence is seen which may represent underlying pulmonary edema. The mediastinal contours and cardiac silhouette are unchanged. Atherosclerotic disease. The bones are unremarkable. A left-sided Port-A-Cath is seen with its tip overlying the right-sided the mediastinum. A subcutaneous cardiac monitoring device overlies the left-sided the heart. Anterior stabilization of the lower cervical spine is seen. [facility]-[id number] Procedure Note Hm Interface, Radiology Results Incoming - 12/27/2017 7:06 PM CDT EXAMINATION: XR CHEST 1 VW PORTABLE CLINICAL HISTORY: Shortness of breath COMPARISON: 2 view chest from 12/21/2017 and PET/CT from 12/20/2017 IMPRESSION: An AP radiograph of the chest was submitted for interpretation. Since the previous radiograph, there has been interval development of consolidation within the right upper lobe and likely right middle lobe likely related to atelectasis likely related to a right-sided central hilar mass. Postobstructive pneumonia is also within the differential. This can be better evaluated with CT as clinically indicated. Mild perihilar prominence is seen which may represent underlying pulmonary edema. The mediastinal contours and cardiac silhouette are unchanged. Atherosclerotic disease. The bones are unremarkable. A left-sided Port-A-Cath is seen with its tip overlying the right-sided the mediastinum. A subcutaneous cardiac monitoring device overlies the left-sided the heart. Anterior stabilization of the lower cervical spine is seen. [facility]-[id number] Performing Organization Address City/[facility] Hospitalcode Phone Number [facility] [address] [place] [address] Lactic acid level, SEPSIS - Now and repeat 2x every 3 hours (12/27/2017 4:40 AM )Only the most recent of2 resultswithin the time period is included. Lactic acid 2.3 (H) 0.5 - 2.2 mmol/L [facility] DEPARTMENT OF PATHOLOGY AND GENOMIC MEDICINE Specimen Plasma specimen Performing Organization Address City/[facility]/Zipcode Phone Number [facility] DEPARTMENT OF PATHOLOGY AND [address] [place] [phone] [place] Hepatitis acute panel (12/27/2017 4:40 AM) Hepatitis A IgM Non-reactive Non-reactive [facility] DEPARTMENT OF PATHOLOGY AND GENOMIC MEDICINE Hepatitis B core IgM Non-reactive Non-reactive [facility] DEPARTMENT OF PATHOLOGY AND GENOMIC MEDICINE Hepatitis B surface Ag Non-reactive Non-reactive [facility] DEPARTMENT OF PATHOLOGY AND GENOMIC MEDICINE Hepatitis C Ab Non-reactive Non-reactive [facility] DEPARTMENT OF PATHOLOGY AND GENOMIC MEDICINE Specimen Serum Performing Organization Address City/[facility]code Phone Number [facility] DEPARTMENT OF PATHOLOGY AND [address] [phone] [facility] Respiratory pathogen panel (12/26/2017 10:30 PM)Only the most recent of4 resultswithin the time period is included. Respiratory pathogen Negative for all pathogens tested: [facility] DEPARTMENT OF panel Negative for Adenovirus PATHOLOGY AND GENOMIC Negative for Coronavirus HKU1 MEDICINE Negative for Coronavirus NL63 Negative for Coronavirus 229E Negative for Coronavirus OC43 Negative for Human Metapneumovirus Negative for Rhinovirus/Enterovirus Negative for Influenza A Negative for Influenza A/H1 Negative for Influenza A/H3 Negative for Influenza A/H1-2009 Negative for Influenza B Negative for Parainfluenza Virus 1 Negative for Parainfluenza Virus 2 Negative for Parainfluenza Virus 3 Negative for Parainfluenza Virus 4 Negative for Respiratory Syncytial Virus Negative for Bordetella pertussis Negative for Chlamydophila pneumoniae Negative for Mycoplasma pneumoniae This real-time PCR assay detects the presence of nucleic acids (RNA or DNA) for the respiratory pathogens listed. A result of "Not-detected" does not exclude the possibility of the presence of one or more pathogens at concentrations less than the detectable limits of the assay. Comment: Specimen Information Specimen Source: Nares Specimen Site: Right Specimen Nares - Right Performing Organization Address City/[facility]/Zipcode Phone Number [facility] DEPARTMENT OF PATHOLOGY AND [address] [place], [place] [phone] [facility] XR Abdomen 1 Vw Portable (12/26/2017 9:50 PM) Narrative Performed At EXAM:XR ABDOMEN 1 VW PORTABLE RADIANT CLINICAL HISTORY:Abd paingastroenteritis or colitis suspected COMPARISON:CT, 12/16/2017 IMPRESSION: There is a paucity of bowel gas limiting evaluation of the bowel gas pattern. No dilated loops of bowel are seen. Cholecystectomy clips are identified within the right upper quadrant. No pathologic masses or calcifications are identified. Bilateral posterior lumbar fusion hardware is identified which is reflective of intact. [facility]-[id number] Procedure Note Hm Interface, Radiology Results Incoming - 12/26/2017 10:22 PM CDT EXAM: XR ABDOMEN 1 VW PORTABLE CLINICAL HISTORY: Abd pain gastroenteritis or colitis suspected COMPARISON: CT, 12/16/2017 IMPRESSION: There is a paucity of bowel gas limiting evaluation of the bowel gas pattern. No dilated loops of bowel are seen. Cholecystectomy clips are identified within the right upper quadrant. No pathologic masses or calcifications are identified. Bilateral posterior lumbar fusion hardware is identified which is reflective of intact. [facility]-[id number] Performing Organization Address City/[facility]code Phone Number [facility] [address] [place] [address] POC glucose (12/24/2017 8:44 PM)Only the most recent of2 resultswithin the time period is included. POC glucose 203 (H) 65 - 99 mg/dL [facility] DEPARTMENT OF PATHOLOGY AND Comment: Melon #usemelon [facility] Notified RN Meter ID: [id number] Senior Oracle Database Developer: Tara Love Performing Organization Address [facility] Hospitalcode Phone Number [facility] DEPARTMENT OF PATHOLOGY AND [address] [place] [phone] [place] [address] Potassium level (12/23/2017 5:00 PM)Only the most recent of2 resultswithin the time period is included. Potassium 4.7 3.5 - 5.0 mEq/L [facility] DEPARTMENT OF PATHOLOGY AND Melon #usemelon [facility] Specimen Plasma specimen Performing Organization Address [facility] Phone Number [facility] DEPARTMENT OF PATHOLOGY AND [address] [place] [address] IR Port Placement (12/22/2017 11:00 AM) Narrative Performed At Performing Radiologist ERICA Santana MD Assistants None Anesthesia Type Moderate sedation was administered by the procedure nurse and monitored by the procedure physician for a total hudz-on-fftk sedation time of 48 minutes. Lidocaine 1% and lidocaine 1% mixed with epinephrine were used for local anesthetic. Pre Procedure Diagnosis right upper lobe squamous cell carcinoma Post Procedure Diagnosis Status post subcutaneous left chest port placement. Procedure Subcutaneous left chest port placement. Technique Written informed consent was obtained prior to the procedure. All elements of maximal sterile barrier technique were followed. Using ultrasound guidance, the left internal jugular vein was punctured with a 21-gauge needle allowing placement of a 0.018 inch guidewire. The needle was removed and a micropuncture sheath was then placed over the guidewire. Under ultrasound guidance, documentation of vessel patency, needle access with permanent recording, and reporting are performed followed by placement of a sheath in the left internal jugular vein. A subcutaneous pocket was then created at the left infraclavicular fossa using sharp and blunt dissection. A tunnel was made between the pocket and the venotomy site, through which the 8-Grenadian port catheter was placed. The venotomy was sequentially dilated to accept an 8-Grenadian peel-away sheath, through which the leading edge of the catheter was advanced under fluoroscopic guidance. The trailing end of the catheter was trimmed to the appropriate length and attached to an [employer] Smart Port CT. Following irrigation of the pocket with dilute antibiotic solution, the port was placed within the pocket. The port incision was closed using a deep layer of interrupted 3-0 Vicryl suture, 4-0 Monocryl running subcuticular suture, and Steri-Strips. The small venotomy incision was closed using Steri-Strips. The port was accessed and found to flush and aspirate freely. A post placement fluoroscopic imaging of the chest was then obtained. There were no complications. Radiation Dose Ka,r=78 mGy Complications None. Specimens Removed None. Estimated Blood Loss Less than 2 mL. Blood/Blood Products Administered None. Grafts/Implants As described in the above report. Impression: Successful fluoroscopic-guided placement of a subcutaneous left chest port via the left internal jugular vein. The catheter tip lies at the right atrium/superior vena cava junction and is ready for use. [facility]-[id number] Procedure Note [facility], Radiology Results Incoming - 12/22/2017 1:46 PM CDT Performing Radiologist Nayan Santana MD Assistants None Anesthesia Type Moderate sedation was administered by the procedure nurse and monitored by the procedure physician for a total axzj-ye-vdqw sedation time of 48 minutes. Lidocaine 1% and lidocaine 1% mixed with epinephrine were used for local anesthetic. Pre Procedure Diagnosis right upper lobe squamous cell carcinoma Post Procedure Diagnosis Status post subcutaneous left chest port placement. Procedure Subcutaneous left chest port placement. Technique Written informed consent was obtained prior to the procedure. All elements of maximal sterile barrier technique were followed. Using ultrasound guidance, the left internal jugular vein was punctured with a 21-gauge needle allowing placement of a 0.018 inch guidewire. The needle was removed and a micropuncture sheath was then placed over the guidewire. Under ultrasound guidance, documentation of vessel patency, needle access with permanent recording, and reporting are performed followed by placement of a sheath in the left internal jugular vein. A subcutaneous pocket was then created at the left infraclavicular fossa using sharp and blunt dissection. A tunnel was made between the pocket and the venotomy site, through which the 8-Grenadian port catheter was placed. The venotomy was sequentially dilated to accept an 8-Grenadian peel- away sheath, through which the leading edge of the catheter was advanced under fluoroscopic guidance. The trailing end of the catheter was trimmed to the appropriate length and attached to an [employer] Smart Port CT. Following irrigation of the pocket with dilute antibiotic solution, the port was placed within the pocket. The port incision was closed using a deep layer of interrupted 3-0 Vicryl suture, 4-0 Monocryl running subcuticular suture, and Steri-Strips. The small venotomy incision was closed using Steri-Strips. The port was accessed and found to flush and aspirate freely. A post placement fluoroscopic imaging of the chest was then obtained. There were no complications. Radiation Dose Ka,r=78 mGy Complications None. Specimens Removed None. Estimated Blood Loss Less than 2 mL. Blood/Blood Products Administered None. Grafts/Implants As described in the above report. Impression: Successful fluoroscopic-guided placement of a subcutaneous left chest port via the left internal jugular vein. The catheter tip lies at the right atrium/ superior vena cava junction and is ready for use. [facility]-[id number] Performing Organization Address City/State/Zipcode Phone Number [facility] [address] [place] [address] PET/CT Skull Base To Mid Thigh (12/20/2017 12:17 PM) Narrative Performed At EXAMINATION:PET CT SKULL BASE TO MID THIGH [facility] CLINICAL HISTORY: New dx of squamous cell castaging ; STAGING COMPARISON:No prior PET scans available for comparison. CT chest/abdomen/pelvis 12/16/2017, CT brain 12/16/2017 TECHNIQUE: The patient received 10-15 mCi 18-FDG intravenously. 1 hour later, PET/CT scanning from the orbits to the mid thighs was performed, followed by PET/CT scanning of the brain. CT scanning was nondiagnostic and used for attenuation correction purposes and to aid in localization of any abnormal findings on the PET images. Automated dose exposure control was utilized. Blood wawhdhc=425. FINDINGS: Head and Neck A tiny lymph node in the right supraclavicular region probably demonstrates mild uptake, with misregistration between PET and CT due to patient motion (SUV=2.3). There is no evidence of malignancy in the brain. Chest Right upper lobe/right hilar mass demonstrates marked uptake (SUV=10.0). There is some peripheral (anterolateral right upper lobe) atelectasis with minimal uptake. Extension into the pleura in the right apex cannot be excluded. A large lymph node in the right highest mediastinal region demonstrates probable abnormal uptake with some misregistration between PET and CT. Right paratracheal lymphadenopathy up to 2.2 cm short axis demonstrates marked uptake (SUV=6.4). A prominent subcarinal lymph node has an SUV of 6.0. No definite abnormal uptake in the left mediastinum or left hilum, although some of the right lower paratracheal lymphadenopathy extends to the midline. A 2.6 cm ill-defined opacity in the posterolateral left apex is probably responsible for an adjacent focus of mild uptake (SUV=3.4). Some patient motion has resulted in slight misregistration between the PET and CT images. Axillary uptake is normal. Abdomen Uptake in the liver, spleen, adrenal glands, pancreas, kidneys, and stomach is normal. Large photopenic inferior right renal cyst. 1.1 cm exophytic mass or cyst near the right renal midpole is without uptake. There is no suspicious retroperitoneal or mesenteric lymph node uptake. Pelvis There is no suspicious pelvic or inguinal lymph node uptake. Osseous Structures Extensive orthopedic hardware in the lower lumbar and lower cervical spine without abnormal uptake. Bone harvest site in the right iliac without uptake. No suspicious osseous uptake. IMPRESSION: 1.Large amorphous mass in the right hilum and right upper lobe with marked uptake, consistent with malignancy. 2.Right mediastinal and subcarinal metastatic lymph nodes. Probable tiny right supraclavicular metastatic node. 3.Small, probably inflammatory opacity in the left apex with mild uptake. 4.Small right exophytic renal mass or cyst. This is without uptake, but PET is not accurate in the assessment of renal masses. [facility]-[id number] Procedure Note [facility], Radiology Results Incoming - 12/20/2017 2:19 PM CDT EXAMINATION: PET CT SKULL BASE TO MID THIGH CLINICAL HISTORY: New dx of squamous cell ca staging ; STAGING COMPARISON: No prior PET scans available for comparison. CT chest/abdomen/ pelvis 12/16/2017, CT brain 12/16/2017 TECHNIQUE: The patient received 10-15 mCi 18-FDG intravenously. 1 hour later, PET/CT scanning from the orbits to the mid thighs was performed, followed by PET /CT scanning of the brain. CT scanning was nondiagnostic and used for attenuation correction purposes and to aid in localization of any abnormal findings on the PET images. Automated dose exposure control was utilized. Blood hvghiuh=661. FINDINGS: Head and Neck A tiny lymph node in the right supraclavicular region probably demonstrates mild uptake, with misregistration between PET and CT due to patient motion (SUV= 2.3). There is no evidence of malignancy in the brain. Chest Right upper lobe/right hilar mass demonstrates marked uptake (SUV=10.0). There is some peripheral (anterolateral right upper lobe) atelectasis with minimal uptake. Extension into the pleura in the right apex cannot be excluded. A large lymph node in the right highest mediastinal region demonstrates probable abnormal uptake with some misregistration between PET and CT. Right paratracheal lymphadenopathy up to 2.2 cm short axis demonstrates marked uptake (SUV= 6.4). A prominent subcarinal lymph node has an SUV of 6.0. No definite abnormal uptake in the left mediastinum or left hilum, although some of the right lower paratracheal lymphadenopathy extends to the midline. A 2.6 cm ill-defined opacity in the posterolateral left apex is probably responsible for an adjacent focus of mild uptake (SUV=3.4). Some patient motion has resulted in slight misregistration between the PET and CT images. Axillary uptake is normal. Abdomen Uptake in the liver, spleen, adrenal glands, pancreas, kidneys, and stomach is normal. Large photopenic inferior right renal cyst. 1.1 cm exophytic mass or cyst near the right renal midpole is without uptake. There is no suspicious retroperitoneal or mesenteric lymph node uptake. Pelvis There is no suspicious pelvic or inguinal lymph node uptake. Osseous Structures Extensive orthopedic hardware in the lower lumbar and lower cervical spine without abnormal uptake. Bone harvest site in the right iliac without uptake. No suspicious osseous uptake. IMPRESSION: 1. Large amorphous mass in the right hilum and right upper lobe with marked uptake, consistent with malignancy. 2. Right mediastinal and subcarinal metastatic lymph nodes. Probable tiny right supraclavicular metastatic node. 3. Small, probably inflammatory opacity in the left apex with mild uptake. 4. Small right exophytic renal mass or cyst. This is without uptake, but PET is not accurate in the assessment of renal masses. [facility]-[id number] Performing Organization Address City/[facility]/Zipcode Phone Number [facility] [address] [place] [address] CBC hemogram (12/18/2017 5:10 AM) WBC 12.21 (H) 4.50 - 11.00 k/uL [facility] DEPARTMENT OF PATHOLOGY AND GENOMIC MEDICINE RBC 4.51 4.20 - 5.50 m/uL [facility] DEPARTMENT OF PATHOLOGY AND GENOMIC MEDICINE HGB 11.7 (L) 12.0 - 16.0 g/dL [facility] DEPARTMENT OF PATHOLOGY AND GENOMIC MEDICINE HCT 40.1 37.0 - 47.0 % [facility] DEPARTMENT OF PATHOLOGY AND GENOMIC MEDICINE MCV 88.9 82.0 - 100.0 fL [facility] DEPARTMENT OF PATHOLOGY AND GENOMIC MEDICINE MCH 25.9 (L) 27.0 - 34.0 pg [facility] DEPARTMENT OF PATHOLOGY AND GENOMIC MEDICINE MCHC 29.2 (L) 31.0 - 37.0 g/dL [facility] DEPARTMENT OF PATHOLOGY AND GENOMIC MEDICINE RDW - SD 62.4 (H) 37.0 - 55.0 fL [facility] DEPARTMENT OF PATHOLOGY AND GENOMIC MEDICINE MPV 10.4 8.8 - 13.2 fL [facility] DEPARTMENT OF PATHOLOGY AND GENOMIC MEDICINE Platelet count 140 (L) 150 - 400 k/uL [facility] DEPARTMENT OF PATHOLOGY AND GENOMIC MEDICINE Nucleated RBC 0.00 /100 WBC [facility] DEPARTMENT OF PATHOLOGY AND GENOMIC MEDICINE Performing Organization Address [facility] Phone Number [facility] DEPARTMENT OF PATHOLOGY AND [address] [place] [phone] GENOMIC MEDICINE Hepatic function panel (12/17/2017 4:00 AM)Only the most recent of6 resultswithin the time period is included. Albumin 2.9 (L) 3.5 - 5.0 g/dL [facility] DEPARTMENT OF PATHOLOGY AND GENOMIC MEDICINE Total bilirubin <0.2 0.0 - 1.2 mg/dL [facility] DEPARTMENT OF PATHOLOGY AND GENOMIC MEDICINE Bilirubin direct <0.2 0.0 - 0.3 mg/dL [facility] DEPARTMENT OF PATHOLOGY AND GENOMIC MEDICINE Alkaline phosphatase 117 (H) 35 - 104 U/L [facility] DEPARTMENT OF PATHOLOGY AND GENOMIC MEDICINE Protein 5.9 (L) 6.3 - 8.3 g/dL [facility] DEPARTMENT OF Comment: PATHOLOGY AND GENOMIC 4.6-7.0 g/dL MEDICINE 1 week 4.4-7.6 g/dL 7 months-1year5.1-7.3 g/dL 1-2 years5.6-7.5 g/dL >3 years6.0-8.0 g/dL 18-150 6.3-8.3 g/dL ALT 55 (H) 5 - 50 U/L [facility] DEPARTMENT OF PATHOLOGY AND GENOMIC MEDICINE AST 21 10 - 35 U/L [facility] DEPARTMENT OF PATHOLOGY AND GENOMIC MEDICINE Specimen Plasma specimen Performing Organization Address City/State/Zipcode Phone Number [facility] DEPARTMENT OF PATHOLOGY AND [address] [place] [address] [facility] CT Chest W Contrast Abdomen W Contrast Pelvis W Contrast (12/16/2017 1:53 PM) Narrative Performed At EXAMINATION:CT CHEST W CONTRAST ABDOMEN W CONTRAST PELVIS W CONTRAST [facility] CLINICAL HISTORY:New dx of squamous cell CAStaging TECHNIQUE: Multiple axial images of the chest, abdomen, and pelvis were obtained following intravenous administration of iodinated contrast. Sagittal and coronal computerized reformatted images were obtained. CT imaging was performed with iterative reconstruction technique and/or automated exposure control to reduce radiation dose. COMPARISON:05/09/2012 CT chest FINDINGS: Chest: Heart size is mildly to moderately enlarged. There is coronary artery calcification. The intrathoracic aorta is of normal caliber. Some noncalcified mural thrombus is seen along the superior aorta at the arch, is 11 x 14 mm. The pulmonary artery is dilated to 3.8 cm. Bilateral bronchial wall thickening is present. Peripheral left upper lobe area of patchy infiltrate is 2.7 x 1.3 cm. In the anterior right upper lobe low density is seen which is most compatible with postobstructive pneumonitis. Underlying mass cannot be excluded. This area measures 7.6 x 9.1 cm. It is contiguous with mass in the right hilum and precarinal space measuring 7.7 x 4.5 cm. An enlarged subcarinal lymph node is also seen measuring 1.7 x 2.7 cm. Some mildly enlarged right hilar nodes are also seen. Small lymph nodes in the posterior mediastinum are also seen. Traction bronchiectasis, prominent interlobular septa, and some honeycombing seen compatible with fibrosis.. Abdomen: Tiny cyst is seen in the right hepatic lobe which is subcentimeter. The gallbladder is unremarkable. The pancreas, and adrenal glands are unremarkable. Hypodense lesion in the spleen is 3.4 cm, compatible with a cyst. Another small splenic cyst is 11 mm. There is a right renal cyst measuring 5.8 cm which is simple in appearance. There is a lesion emanating from the right kidney which does not meet criteria for simple cyst and could be hemorrhagic cyst or solid lesion such as renal cell cancer. It measures [address] may better evaluate. Several simple left renal cysts are seen. The largest is 15 mm. Pelvis: There is left common iliac ectasia. It measures 2.1 cm. Sigmoid diverticula are present.Lumbar hardware is seen. Right iliac lucency is probably a bony donor graft site. Cervical hardware is also seen. IMPRESSION: Right hilar mass with extension into the right upper lobe and postobstructive pneumonitis. Pulmonary fibrotic changes compatible with NSIP. Bronchial wall thickening. Enlarged mediastinal lymph nodes. Pulmonary arterial hypertension.Cardiomegaly. Right renal lesion which could be hemorrhagic cyst or mass such as renal cell carcinoma. Left common iliac ectasia. [facility]-[id number] Procedure Note Hm Interface, Radiology Results Incoming - 12/16/2017 7:06 PM CDT EXAMINATION: CT CHEST W CONTRAST ABDOMEN W CONTRAST PELVIS W CONTRAST CLINICAL HISTORY: New dx of squamous cell CA Staging TECHNIQUE: Multiple axial images of the chest, abdomen, and pelvis were obtained following intravenous administration of iodinated contrast. Sagittal and coronal computerized reformatted images were obtained. CT imaging was performed with iterative reconstruction technique and/or automated exposure control to reduce radiation dose. COMPARISON: 05/09/2012 CT chest FINDINGS: Chest: Heart size is mildly to moderately enlarged. There is coronary artery calcification. The intrathoracic aorta is of normal caliber. Some noncalcified mural thrombus is seen along the superior aorta at the arch, is 11 x 14 mm. The pulmonary artery is dilated to 3.8 cm. Bilateral bronchial wall thickening is present. Peripheral left upper lobe area of patchy infiltrate is 2.7 x 1.3 cm. In the anterior right upper lobe low density is seen which is most compatible with postobstructive pneumonitis. Underlying mass cannot be excluded. This area measures 7.6 x 9.1 cm. It is contiguous with mass in the right hilum and precarinal space measuring 7.7 x 4.5 cm. An enlarged subcarinal lymph node is also seen measuring 1.7 x 2.7 cm. Some mildly enlarged right hilar nodes are also seen. Small lymph nodes in the posterior mediastinum are also seen. Traction bronchiectasis, prominent interlobular septa, and some honeycombing seen compatible with fibrosis.. Abdomen: Tiny cyst is seen in the right hepatic lobe which is subcentimeter. The gallbladder is unremarkable. The pancreas, and adrenal glands are unremarkable. Hypodense lesion in the spleen is 3.4 cm, compatible with a cyst. Another small splenic cyst is 11 mm. There is a right renal cyst measuring 5.8 cm which is simple in appearance. There is a lesion emanating from the right kidney which does not meet criteria for simple cyst and could be hemorrhagic cyst or solid lesion such as renal cell cancer. It measures [address] may better evaluate. Several simple left renal cysts are seen. The largest is 15 mm. Pelvis: There is left common iliac ectasia. It measures 2.1 cm. Sigmoid diverticula are present. Lumbar hardware is seen. Right iliac lucency is probably a bony donor graft site. Cervical hardware is also seen. IMPRESSION: Right hilar mass with extension into the right upper lobe and postobstructive pneumonitis. Pulmonary fibrotic changes compatible with NSIP. Bronchial wall thickening. Enlarged mediastinal lymph nodes. Pulmonary arterial hypertension. Cardiomegaly. Right renal lesion which could be hemorrhagic cyst or mass such as renal cell carcinoma. Left common iliac ectasia. [facility]-[id number] Performing Organization Address City/State/Zipcode Phone Number [facility] [address] [place] [address] CT Head W Wo Contrast (12/16/2017 1:52 PM) Narrative Performed At EXAMINATION:[facility] CLINICAL H[facility]ORY:Evaluate for brain metastases COMPARISON:None FINDINGS: Axial images were obtained before and after intravenous contrast infusion throughout the brain. CT scans are performed using radiation dose reduction techniques. Technical factors are evaluated and adjusted to ensure appropriate moderation of exposure. Automated dose management technology is applied to adjust radiation exposure while achieving a highly diagnostic quality image.. There is generalized atrophic ventricular and sulcal dilatation. There are chronic nonspecific microvascular ischemic changes in the centrum semiovale and basal bilaterally. There is no acute hemorrhage. There are no abnormal enhancing lesions within the brain parenchyma or the leptomeninges. There is no skull fracture. There is no definite lytic or blastic bone destruction within the calvarium. IMPRESSION: Generalized involutional changes. No enhancing intracranial lesions to suggest metastatic disease. No gross bone erosion in the skull. [facility]-[id number] Procedure Note Hm Interface, Radiology Results Incoming - 12/16/2017 1:58 PM CDT EXAMINATION: CT HEAD W WO CONTRAST CLINICAL HISTORY: Evaluate for brain metastases COMPARISON: None FINDINGS: Axial images were obtained before and after intravenous contrast infusion throughout the brain. CT scans are performed using radiation dose reduction techniques. Technical factors are evaluated and adjusted to ensure appropriate moderation of exposure. Automated dose management technology is applied to adjust radiation exposure while achieving a highly diagnostic quality image.. There is generalized atrophic ventricular and sulcal dilatation. There are chronic nonspecific microvascular ischemic changes in the centrum semiovale and basal bilaterally. There is no acute hemorrhage. There are no abnormal enhancing lesions within the brain parenchyma or the leptomeninges. There is no skull fracture. There is no definite lytic or blastic bone destruction within the calvarium. IMPRESSION: Generalized involutional changes. No enhancing intracranial lesions to suggest metastatic disease. No gross bone erosion in the skull. [facility]-[id number] Performing Organization Address City/[facility]/Zipcode Phone Number [facility] [address] [place] [address] Smear review (12/15/2017 4:25 AM) Platelet slide review Kitty adequate [facility] DEPARTMENT OF PATHOLOGY AND GENOMIC MEDICINE Anisocytosis Moderate [facility] DEPARTMENT OF PATHOLOGY AND GENOMIC MEDICINE Polychromasia Moderate [facility] DEPARTMENT OF PATHOLOGY AND GENOMIC MEDICINE Ovalocytes Moderate [facility] DEPARTMENT OF PATHOLOGY AND GENOMIC MEDICINE Performing Organization Address City/[facility]/Zipcode Phone Number [facility] DEPARTMENT OF PATHOLOGY AND [address] [place] [phone] GENOMIC MEDICINE Cytology (non-gynecological) request (12/12/2017 12:07 PM)Only the most recent of5 resultswithin the time period is included. [facility] DEPARTMENT OF PATHOLOGY AND GENOMIC MEDICINE Cytology See link below for PDF [facility] DEPARTMENT OF (non-gynecological) report Lab Report PATHOLOGY AND GENOMIC MEDICINE Result status This is Final Report [facility] DEPARTMENT OF for [id number] PATHOLOGY AND GENOMIC MEDICINE Performing Organization Address [facility] Phone Number [facility] DEPARTMENT OF PATHOLOGY AND [address] [place] [address] GENOMIC [facility] Surgical pathology request (12/12/2017 11:58 AM)Only the most recent of2 resultswithin the time period is included. [facility] DEPARTMENT OF PATHOLOGY AND GENOMIC MEDICINE Surgical pathology See link below for PDF Lab [facility] DEPARTMENT OF report Report PATHOLOGY AND GENOMIC MEDICINE Result status This is Supplemental Report [facility] DEPARTMENT for [id number] PATHOLOGY AND GENOMIC MEDICINE Performing Organization Address City/[facility] Phone Number [facility] DEPARTMENT OF PATHOLOGY AND [address] [place] [address] MEDICINE Respiratory culture (12/12/2017 8:45 AM) Respiratory culture Normal oral isaura isolated. [facility] DEPARTMENT OF isolate Comment: PATHOLOGY AND GENOMIC Specimen Information MEDICINE Specimen Source: Bronchial Washing Specimen Site: Lung, right upper lobe Specimen Bronchial washing - Lung, right upper lobe Performing Organization Address City/[facility] [place] Phone Number [facility] DEPARTMENT OF PATHOLOGY AND [address] [place] [address] Fungus smear (12/12/2017 8:45 AM)Only the most recent of2 resultswithin the time period is included. Fungus smear No fungi observed. [facility] DEPARTMENT OF PATHOLOGY Comment: AND Melon #usemelon MEDICINE Specimen Information Specimen Source: Bronchial alveolar lavage Specimen Site: Lung, right upper lobe Specimen Bronchial alveolar lavage - Lung, right upper lobe Performing Organization Address City/[facility] [place] Phone Number [facility] DEPARTMENT OF PATHOLOGY AND [address] [place] [address] Melon #usemelon [facility] BAL cell count and differential (12/12/2017 8:45 AM) BAL specimen source RUL BAL [facility] DEPARTMENT OF PATHOLOGY AND GENOMIC MEDICINE BAL cell count 0.000 m/mL [facility] DEPARTMENT OF PATHOLOGY Comment: AND GENOMIC MEDICINE Normal ranges: Nonsmokers: 0.007 - 0.363 Smokers: 0 - 1.31 0% Viability BAL PAMS SEE COMMENT % [facility] DEPARTMENT OF PATHOLOGY Comment: AND GENOMIC MEDICINE Normal ranges: Nonsmokers: 65 - 100 Smokers: 81 - 100 Footnote--------- Unable to perform differential. No viabile cells seen. Specimen Fluid - Lung, right upper lobe Performing Organization Address [facility] Hospitalcomn Phone Number [facility] DEPARTMENT OF PATHOLOGY AND [address] [place] [phone] GENOMIC [facility] Cytomegalovirus by PCR (12/12/2017 8:45 AM)Only the most recent of2 resultswithin the time period is included. Cytomegalovirus by PCR Not-Detected Not-Detected IU/mL [facility] DEPARTMENT OF PATHOLOGY AND GENOMIC MEDICINE Cytomegalovirus by PCR See link below for [facility] Lab PATHOLOGY AND GENOMIC ReportComment: Case MEDICINE Number: [id number] Specimen Bronchial washing - Lung, right upper lobe Performing Organization Address [facility] [place] Phone Number [facility] DEPARTMENT OF PATHOLOGY AND [address] [place] [address] GENOMIC [facility] Varicella zoster by PCR (12/12/2017 8:45 AM)Only the most recent of2 resultswithin the time period is included. VZV result Not-Detected Not-Detected [facility] DEPARTMENT OF copies/mL PATHOLOGY AND GENOMIC MEDICINE Varicella zoster, PCR See link below for [facility] Lab PATHOLOGY AND GENOMIC ReportComment: Case MEDICINE Number: [id number] Specimen Bronchial washing - Lung, right upper lobe Narrative Performed At The specimen type BAL treated with [facility] DEPARTMENT OF PATHOLOGY AND GENOMIC Dithiothreitol (DTT) has not been validated MEDICINE for this assay. Therefore, the sensitivity and specificity of this assay for this specimen type is unknown. A negative result does not completely rule out the presence of HSV. Correlation with other clinical information is recommended. Performing Organization Address [facility] [place] Phone Number [facility] DEPARTMENT OF PATHOLOGY AND [address] [place] [address] Herpes simplex virus by PCR (12/12/2017 8:45 AM)Only the most recent of2 resultswithin the time period is included. Herpes virus, PCR Not-Detected Not-Detected [facility] DEPARTMENT OF PATHOLOGY AND GENOMIC MEDICINE Herpes virus, PCR See link below for PDF [facility] DEPARTMENT OF PATHOLOGY Lab ReportComment: Case AND GENOMIC MEDICINE Number: [id number] Specimen Bronchial washing - Lung, right upper lobe Narrative Performed At The specimen type BAL treated with [facility] DEPARTMENT OF PATHOLOGY AND GENOMIC Dithiothreitol (DTT) has not been validated MEDICINE for this assay. Therefore, the sensitivity and specificity of this assay for this specimen type is unknown. A negative result does not completely rule out the presence of HSV. Correlation with other clinical information is recommended. Performing Organization Address City/[facility] Hospitalcode Phone Number [facility] DEPARTMENT OF PATHOLOGY AND [address] [place] [address] GENOMIC MEDICINE AFB culture (12/12/2017 8:45 AM)Only the most recent of2 resultswithin the time period is included. AFB culture isolate No growth after 6 weeks of incubation. [facility] DEPARTMENT OF PATHOLOGY Comment: AND GENOMIC MEDICINE Specimen Information Specimen Source: Bronchial alveolar lavage Specimen Site: Lung, right upper lobe Specimen Bronchial alveolar lavage - Lung, right upper lobe Performing Organization Address [facility] Phone Number [facility] DEPARTMENT OF PATHOLOGY AND [address] [place] [address] GENOMIC MEDICINE Nocardia culture (12/12/2017 8:45 AM)Only the most recent of2 resultswithin the time period is included. Nocardia culture isolate No Nocardia isolated after 7 days. [facility] DEPARTMENT OF Comment: PATHOLOGY AND GENOMIC Specimen Information MEDICINE Specimen Source: Bronchial alveolar lavage Specimen Site: Lung, right upper lobe Specimen Bronchial alveolar lavage - Lung, right upper lobe Performing Organization Address [facility] [place] Phone Number [facility] DEPARTMENT OF PATHOLOGY AND [address] [place] [phone] GENOMIC MEDICINE Legionella culture (12/12/2017 8:45 AM)Only the most recent of2 resultswithin the time period is included. Legionella culture No Legionella isolated. [facility] DEPARTMENT OF isolate Comment: PATHOLOGY AND GENOMIC Specimen Information MEDICINE Specimen Source: Bronchial alveolar lavage Specimen Site: Lung, right upper lobe Specimen Bronchial alveolar lavage - Lung, right upper lobe Performing Organization Address [facility] Phone Number [facility] DEPARTMENT OF PATHOLOGY AND [address] [place] [phone] GENOMIC MEDICINE AFB stain (12/12/2017 8:45 AM)Only the most recent of2 resultswithin the time period is included. AFB stain No acid fast bacilli (AFB) seen. [facility] DEPARTMENT OF PATHOLOGY AND Comment: GENOMIC MEDICINE Specimen Information Specimen Source: Bronchial alveolar lavage Specimen Site: Lung, right upper lobe Specimen Bronchial alveolar lavage - Lung, right upper lobe Performing Organization Address [facility] Phone Number [facility] DEPARTMENT OF PATHOLOGY AND [address] [place] [phone] GENOMIC MEDICINE Fungus culture (12/12/2017 8:45 AM)Only the most recent of2 resultswithin the time period is included. Fungus culture isolate No growth after 4 weeks of incubation. [facility] DEPARTMENT OF Comment: PATHOLOGY AND GENOMIC Specimen Information MEDICINE Specimen Source: Bronchial alveolar lavage Specimen Site: Lung, right upper lobe Specimen Bronchial alveolar lavage - Lung, right upper lobe Performing Organization Address City/State/Zipcode Phone Number [facility] DEPARTMENT OF PATHOLOGY AND [address] [place] [address] GENOMIC MEDICINE Echocardiogram complete w contrast and 3D if needed (12/11/2017 9:14 AM) Narrative Performed At [facility] Echocardiography Report [address] [facility] [address], [place] [address] Pat.Name:CHRISTINA SANTACRUZ Pat.ID:[id number] .Date: 12/11/2017 Refer.MD:OBEY PENALOZA MD Exam Time: 7:55:00 AMStudy Type:Routine Echo Height:67inWeight: 240lb BSA: 2.19 m2 DOBAge:1950,67Y Sex: FEMALEBP:165/77 HR:84 bpmSonogrphr: TAMIKA Castellanos Pat. Stat.:Inpatient Room:[place] [id number] Study Status:Final Echo Event ID:[id number] Order ID:[id number] Reason for Study:CHF History / Clinical:Hyperlipidemia, Hypertension, Shortness of Breath Procedures:2D Echo, Colorflow Doppler, Strain Race:C SUMMARY: Estimated EF is 65-69% LA volume is severely enlarged. RA volume is moderately enlarged. LV filling pressure is elevated. Insufficient TR jet to estimate PA systolic pressure. FINDINGS: LV: LV size is normal. LV EF is normal. Overall wall motion is normal.Estimated EF is 65-69% RV: RV size is normal. RV systolic function is normal. RV wall motionis normal. LA: LA volume is severely enlarged. RA: RA volume is moderately enlarged. AO: Aortic root diameter is normal. QUEENIE: No pericardial effusion. There is an anterior space consistentwith a prominent epicardial fat pad. AV: No structural AV abnormalities noted. Aortic annular calcificationpresent. MV: Moderate mitral annular calcification. PV: No structural PV abnormalities noted. A trace of pulmonic regurgitation. TV: No structural TV abnormalities noted. Greer: LV relaxation is impaired. LV filling pressure is elevated. Other:Insufficient TR jet to estimate PA systolic pressure. MEASUREMENTS: 2D [employer] LVOT 2 cmLA Ds5.1 cm LVIDd4.7 cmIndex2.2 cm/m Ao Rtd 3.2 cm Index1.5 cm/m LVIDs3.2 cmLV Nqcd828.4 g(87-129) LV%fs 31.9 % LVM Index 70 g/m2 IVSd 1 cmRWT0.4 LVPWd0.9 cm LA Sng Plane LA Area 35.9 cm2(8.8-23.4) LA Vol 139.4 ml Index63.7 ml/m LA LngAx 7.7 cm RA Sng Plane RA Area 27.5 cm2(8.3-19.5) RA Vol90.8 ml Index41.5 ml/m RA LngAx 6.8 cm Signed 12/11/2017 01:40 PM Sylvain Fuentes M.D. Procedure Note Interface, Radiology Results In - 12/11/2017 1:40 PM CDT Echocardiography Report [id number] [address] [facility].Name: CHRISTINA SANTACRUZ.ID: [id number] .Date: 12/11/2017 Refer.MD: OBEY PENALOZA MD Exam Time: 7:55:00 AM Study Type:Routine Echo Height: 67in Weight: 240lb BSA: 2.19 m2 Age: 6 1950,67Y Sex: FEMALE BP: 165/77 HR: 84 bpm Sonogrphr: TAMIKA Castellanos. Stat.:Inpatient Room: [address] Study Status:Final Echo Event ID:[id number] Order ID: [id number] Reason for Study:CHF History / Clinical:Hyperlipidemia, Hypertension, Shortness of Breath Procedures:2D Echo, Colorflow Doppler, Strain Race: C SUMMARY: Estimated EF is 65-69% LA volume is severely enlarged. RA volume is moderately enlarged. LV filling pressure is elevated. Insufficient TR jet to estimate PA systolic pressure. FINDINGS: LV: LV size is normal. LV EF is normal. Overall wall motion is normal. Estimated EF is 65-69% RV: RV size is normal. RV systolic function is normal. RV wall motion is normal. LA: LA volume is severely enlarged. RA: RA volume is moderately enlarged. AO: Aortic root diameter is normal. QUEENIE: No pericardial effusion. There is an anterior space consistent with a prominent epicardial fat pad. AV: No structural AV abnormalities noted. Aortic annular calcification present. MV: Moderate mitral annular calcification. PV: No structural PV abnormalities noted. A trace of pulmonic regurgitation. TV: No structural TV abnormalities noted. Greer: LV relaxation is impaired. LV filling pressure is elevated. Other: Insufficient TR jet to estimate PA systolic pressure. MEASUREMENTS: 2D Parasternal [employer] LVOT 2 cm LA Ds 5.1 cm LVIDd 4.7 cm Index 2.2 cm/m Ao Rtd 3.2 cm Index 1.5 cm/m LVIDs 3.2 cm LV Mass 153.4 g (87-129) LV%fs 31.9 % LVM Index 70 g/m2 IVSd 1 cm RWT 0.4 LVPWd 0.9 cm LA Sng Plane LA Area 35.9 cm2 (8.8-23.4) LA Vol 139.4 ml Index 63.7 ml/m LA LngAx 7.7 cm RA Sng Plane RA Area 27.5 cm2 (8.3-19.5) RA Vol 90.8 ml Index 41.5 ml/m RA LngAx 6.8 cm Signed 12/11/2017 01:40 PM Sylvain Fuentes M.D. Performing Organization Address [facility]/[employer] Phone Number [facility] [address] [place] [address] Arterial blood gas (12/09/2017 12:15 AM)Only the most recent of2 resultswithin the time period is included. pH, arterial 7.41 7.35 - 7.45 [facility] DEPARTMENT OF PATHOLOGY AND GENOMIC MEDICINE pCO2, arterial 40 35 - 45 mmHg [facility] DEPARTMENT OF PATHOLOGY AND GENOMIC MEDICINE pO2, arterial 135 (H) 80 - 90 mmHg [facility] DEPARTMENT OF PATHOLOGY AND GENOMIC MEDICINE Bicarbonate, arterial 24.8 21.0 - 28.0 mmol/L [facility] DEPARTMENT OF PATHOLOGY AND GENOMIC MEDICINE Base excess, arterial 1 -2 - 2 mEq/L [facility] DEPARTMENT OF PATHOLOGY AND GENOMIC MEDICINE O2 saturation, arterial 98 95 - 100 % [facility] DEPARTMENT OF PATHOLOGY AND GENOMIC MEDICINE Specimen Blood Performing Organization Address [facility] Phone Number [facility] DEPARTMENT PATHOLOGY AND [address] [place] [phone] GENOMIC MEDICINE T4, free (12/08/2017 11:49 PM)Only the most recent of2 resultswithin the time period is included. T4, free 1.1 0.9 - 1.7 ng/dL [facility] DEPARTMENT OF PATHOLOGY AND GENOMIC MEDICINE Specimen Plasma specimen Performing Organization Address City/[facility]/Zipcode Phone Number [facility] DEPARTMENT OF PATHOLOGY AND [address] [place] [phone] GENOMIC MEDICINE US Hepatic (12/08/2017 8:56 PM) Narrative Performed At EXAMINATION:US HEPATIC [facility] CLINICAL HISTORY:elevated lfts COMPARISON:None. IMPRESSION: Liver: The liver is normal in size and echogenicity. There is no evidence of focal mass or intrahepatic biliary ductal dilatation. Portal vein: The portal vein is normal in size and demonstrates normal hepatopetal flow. Gallbladder: Surgically absent. Common bile duct: Normal caliber. [facility]-[id number] Procedure Note Interface, Radiology Results Incoming - 12/08/2017 9:04 PM CDT EXAMINATION: US HEPATIC CLINICAL HISTORY: elevated lfts COMPARISON: None. IMPRESSION: Liver: The liver is normal in size and echogenicity. There is no evidence of focal mass or intrahepatic biliary ductal dilatation. Portal vein: The portal vein is normal in size and demonstrates normal hepatopetal flow. Gallbladder: Surgically absent. Common bile duct: Normal caliber. [facility]-[id number] Performing Organization Address [facility] Phone Number [facility] [address] [place] [address] D-dimer (12/08/2017 3:10 PM) D-dimer 0.90 (H) 0.00 - 0.40 ug/mL FEU [facility] DEPARTMENT OF Comment: PATHOLOGY AND GENOMIC Units are ug/ml Fibrinogen Equivalent Unit. MEDICINE When combined with low clinical probability, D-dimer results of less than 0.5 ug/ml FEU have a good negativepredictive value in excluding PE or DVT. For D-dimer results greater than 0.5ug/ml FEU further testing is indicated if PE or DVT is suspectedclinically. Elevated D-dimer results have been reported in DVT, PE, and DIC cases and may indicate the presence of a clot. D-dimer results may be elevated due to old age, , inflammatory diseases, trauma, post-operative states, sepsis, and malignancies. Specimen Blood Performing Organization Address City/[facility]/Zipcode Phone Number [facility] DEPARTMENT OF PATHOLOGY AND [address] [place] [address] [facility] MEDICINE CRITICAL CARE (12/08/2017 2:38 PM) Narrative Performed At Josse Arnold MD 12/10/20179:38 AM Critical Care Performed by: JOSSE ARNOLD Authorized by: JOSSE ARNOLD Critical care provider statement: Critical care time (minutes):45 Critical care time was exclusive of:Separately billable procedures and treating other patients and teaching time Critical care was necessary to treat or prevent imminent or life-threatening deterioration of the following conditions:Respiratory failure and circulatory failure Critical care was time spent personally by me on the following activities:Blood draw for specimens, development of treatment plan with patient or surrogate, discussions with consultants, discussions with primary provider, evaluation of patient's response to treatment, examination of patient, ordering and performing treatments and interventions, ordering and review of laboratory studies, ordering and review of radiographic studies, pulse oximetry, re-evaluation of patient's condition and review of old charts Odilon 'yes' if you are taking over critical care for this patient from another provider.: no Partial thromboplastin time, activated (12/08/2017 2:35 PM) PTT 33.7 23.0 - 36.0 sec [facility] DEPARTMENT OF PATHOLOGY Comment: AND Melon #usemelon MEDICINE PTT therapeutic range for unfractionated heparin is 61.0-112.0 seconds which corresponds to Anti-Xa 0.3-0.7 U/ml. Specimen Blood Performing Organization Address City/State/Zipcode Phone Number [facility] DEPARTMENT OF PATHOLOGY AND [address] [place] [address] Melon #usemelon [facility] Prothrombin time with INR (12/08/2017 2:35 PM) Prothrombin time 16.7 (H) 12.0 - 15.0 sec [facility] DEPARTMENT OF PATHOLOGY AND GENOMIC MEDICINE INR 1.3 [facility] DEPARTMENT OF Comment: PATHOLOGY AND GENOMIC The International Normalized Ratio (INR) is a therapeutic MEDICINE monitoring tool for patients who are stable on oral anticoagulant therapy. An INR of 2.0-3.0 is suggested for deep vein thrombosis/pulmonary embolism. Specimen Blood Performing Organization Address City/State/Zipcode Phone Number [facility] DEPARTMENT OF PATHOLOGY AND [address] [place] [phone] [place] XR Chest External Study (11/07/2017 9:37 AM)Only the most recent of2 resultswithin the time period is included. Narrative Performed At This exam was not acquired at a [facility] facility and has not been [facility] interpreted by a [facility] Provider.The exam was imported into our imaging system for comparisons purposes. Performing Organization Address City/State/Zipcode Phone Number [facility] [address] [place] [address] XR Chest 1 Vw (11/07/2017) Narrative Performed At Estimated GFR (09/15/2017 4:00 AM)Only the most recent of4 resultswithin the time period is included. GFR Non Af Amer 63 mL/min/1.73 m2 [facility] DEPARTMENT OF PATHOLOGY AND GENOMIC MEDICINE GFR Af Amer 76 mL/min/1.73 m2 [facility] DEPARTMENT OF Comment: PATHOLOGY AND GENOMIC [...] Americans. Specimen Plasma specimen Performing Organization Address City/[facility]/Zipcode Phone Number [facility] DEPARTMENT OF PATHOLOGY AND [address] [place] [address] [facility] Cv electrophysiology procedure (09/14/2017 1:17 PM) Impressions [...] Performed At DATE OF OPERATION: 09/14/2017 [facility] GRINDER SET UP OPERATOR GEAR TOOL: Kristopher Moreno MD PREOPERATIVE DIAGNOSES: -Paroxysmal atrial [...] 350 sec, transseptal puncture was performed with [place] long needle (requiring RF) using ICE guidance. [...] HV interval was measured at 59msec and JF=465gg. Post-procedure ICE showed no pericardial effusion.At this time, GA was stopped and patient was extubated; No immediate complications. Protamine was given at the end of the procedure.Sheaths were pulled in the lab and patient was transferred to the PACU in a stable condition. Performing Organization Address [facility] Hospitalcomn Phone Number [facility] [address] [place] [phone] Sodium level, syringe (09/14/2017 12:50 PM) Sodium, syringe 136 135 - 148 mEq/L [facility] DEPARTMENT OF PATHOLOGY AND GENOMIC MEDICINE Specimen Blood Performing Organization Address [facility]comn Phone Number [facility] DEPARTMENT OF PATHOLOGY AND [address] [place] [phone] [place] [address] Potassium, syringe (09/14/2017 12:50 PM) Potassium, syringe 4.1 3.5 - 5.0 mEq/L [facility] DEPARTMENT OF PATHOLOGY AND GENOMIC MEDICINE Specimen Blood Performing Organization Address [facility] [place] Phone Number [facility] DEPARTMENT OF PATHOLOGY AND [address] [place] [address] Ionized calcium, arterial (09/14/2017 12:50 PM) Ionized calcium, arterial 1.04 (L) 1.11 - 1.32 mmol/L [facility] DEPARTMENT OF PATHOLOGY AND GENOMIC MEDICINE Specimen Blood Performing Organization Address [facility] [place] Phone Number [facility] DEPARTMENT OF PATHOLOGY AND [address] [place] [address] Hemoglobin, syringe (09/14/2017 12:50 PM) Hemoglobin, syringe 10.5 (L) 12.0 - 16.0 g/dL [facility] DEPARTMENT OF PATHOLOGY AND GENOMIC MEDICINE Specimen Blood Performing Organization Address [facility]comn Phone Number [facility] DEPARTMENT OF PATHOLOGY AND [address] [place], [place] [phone] [facility] Glucose level, syringe (09/14/2017 12:50 PM) Glucose, syringe 167 (H) 65 - 99 mg/dL [facility] DEPARTMENT OF PATHOLOGY AND GENOMIC MEDICINE Specimen Blood Performing Organization Address [facility] [place] Phone Number [facility] DEPARTMENT OF PATHOLOGY AND [address] [place] [address] Arterial blood gas, corrected (09/14/2017 12:50 PM) pH, arterial 7.34 (L) 7.35 - 7.45 [facility] DEPARTMENT OF PATHOLOGY AND GENOMIC MEDICINE pCO2, arterial 44 35 - 45 mmHg [facility] DEPARTMENT OF PATHOLOGY AND GENOMIC MEDICINE pO2, arterial 356 (H) 80 - 90 mmHg [facility] DEPARTMENT OF PATHOLOGY AND GENOMIC MEDICINE Temperature, Celsius 36.5 Degrees C [facility] DEPARTMENT OF PATHOLOGY AND GENOMIC MEDICINE O2 saturation, arterial 99 95 - 100 % [facility] DEPARTMENT OF PATHOLOGY AND GENOMIC MEDICINE pH, arterial corrected 7.35 [facility] DEPARTMENT OF PATHOLOGY AND GENOMIC MEDICINE pCO2, arterial corrected 43 mmHg [facility] DEPARTMENT OF PATHOLOGY AND GENOMIC MEDICINE pO2, arterial corrected 354 mmHg [facility] DEPARTMENT OF PATHOLOGY AND GENOMIC MEDICINE Base excess, arterial -2 -2 - 2 mEq/L [facility] DEPARTMENT OF PATHOLOGY AND GENOMIC MEDICINE Specimen Blood Performing Organization Address City/[facility] Phone Number [facility] DEPARTMENT PATHOLOGY AND [address] [place] [phone] [facility] MEDICINE Activated clotting time (09/14/2017 12:44 PM)Only the most recent of7 resultswithin the time period is included. Activated clotting time 129 96 - 152 sec [facility] DEPARTMENT OF Comment: PATHOLOGY AND GENOMIC Meter ID: [id number] [facility] Senior Oracle Database Developer ID: Larry Evans Performing Organization Address [facility]code Phone Number [facility] PATHOLOGY AND [address] [place] [address] [facility] MEDIC[facility] ECG Pre/Post Op (09/14/2017 6:49 AM)Only the most recent of2 resultswithin the time period is included. Ventricular rate 124 [facility] Atrial rate 337 [facility] QRSD interval 90 [facility] QT interval 344 [facility] QTC interval 494 [facility] QRS axis 1 28 [facility] T wave axis 122 [facility] EKG impression Atrial flutter with variable AV block-Nonspecific ST and T wave abnormality-Abnormal ECG-In automated comparison with ECG of 21-JUN-2017 07 :01,-Atrial flutter has replaced Sinus rhythm-Vent. rate has increased BY61 BPM-T wave inversion no longer [facility] MUSE evident in Anterolateral leads- Performing Organization Address [facility]comn Phone Number [facility] [address] [place] [address] Cv electrophysiology procedure (06/21/2017 9:15 AM) Impressions Performed At -Successful CTI ablation line ALANA YU -Bidirectional block confirmed after more than 20 minutes of wait time and adenosine injection -Successful implantable loop recorder implant RECOMMENDATION: -Bedrest for 4 hours. -Likely discharge home later today -Start Xarelto this afternoon 4 hours after obtaining hemostasis. -Followup in 10 days for wound check Narrative Performed At DATE OF OPERATION: June 21, 2017 ALANA YU GRINDER SET UP OPERATOR GEAR TOOL: Kristopher Moreno MD PREOPERATIVE DIAGNOSES: -Typical atrial [...] long 7-Fr, long 9-Fr, and a short 8-Grenadian sheath) using modified Seldinger technique.An ICE catheter sound was advanced to the RA RV junction.A baseline eye study showed normal ejection fraction and no pericardial effusion.The CTI line, His position,CS os were all marked on the Sound map.Following this the 8-Grenadian sheath was upgraded to a medium curl [...] indicating block across the line.Trans block conduction [id number] and bidirectional block was confirmed.Power of 30-40 [...] with medical adhesive (Prineo) ILR: Confirm Rx [id number]; [id number]. Performing Organization Address City/State/Zipcode Phone Number [facility] [address] [place] [address] Type and screen (06/20/2017 5:50 PM) ABO grouping O [facility] DEPARTMENT OF PATHOLOGY AND GENOMIC MEDICINE Rh type POS [facility] DEPARTMENT OF PATHOLOGY AND GENOMIC MEDICINE Antibody screen (gel) NEG [facility] DEPARTMENT OF PATHOLOGY AND GENOMIC MEDICINE Specimen Blood Performing Organization Address City/[facility]/Zipcode Phone Number [facility] DEPARTMENT OF PATHOLOGY AND [address] [place] [phone] GENOMIC MEDICINE Echocardiogram complete w contrast and 3D if needed (06/18/2017 10:22 PM) Narrative Performed At [facility] Echocardiography Report [id number], [facility] [address], [place] [phone] Pat.Name:CHRISTINA ASNTACRUZ Pat.ID:[id number] .Date: 06/18/2017 Refer.MD:YANICK STANLEY MD Exam Time: 9:42:00 PMStudy Type:Routine Echo Height:67inWeight: 234lb BSA: 2.16 m2 DOBAge:1950,66Y Sex: FEMALEBP:149/71 HR:68 bpmSonogrphr: ADITHYA Ozuna. Stat.:Inpatient Room:D91 Study Status:Final Echo Event ID:[id number] Order ID:[id number] Reason for Study:Arrhythmias - Sustained or nonsustained [...] detected by Doppler. MEASUREMENTS: 2D Parasternal [employer] LVOT 2.1 cmLA Ds3.9 cm LVIDd4.5 cmIndex2.1 cm/m Ao An2.4 cm LVIDs3 cmAo Rtd 3.1 cm Index1.4 cm/m LV%fs 33.3 % LV Adea142.9 g(87-129) IVSd 1 cmRWT0.4 LVPWd0.9 cm LA Sng Plane LA Area 11.1 cm2(8.8-23.4) LA Vol22.8 ml Index10.5 ml/m LA LngAx 4.8 cm DOPPLER LVOT Stroke Vol LVOT 2.1 cmLVOT SV 70.2 ml LVOT TVI20.3 cmLVOT CO4.8 l/min LVOT Tm301 dfhtKP35 bpm Signed 06/19/2017 09:18 AM Sylvain Fuentes M.D. Procedure Note Interface, Radiology Results In - 06/19/2017 9:18 AM CDT Echocardiography Report [address] [place] [address] Pat.Name: CHRISTINA SANTACRUZ Pat.ID: [id number] St.Date: 06/18/2017 Refer.MD: YANICK STANLEY MD Exam Time: 9:42:00 PM Study Type:Routine Echo Height: 67in Weight: 234lb BSA: 2.16 m2 Age: 5 1950,66Y Sex: FEMALE BP: 149/71 HR: 68 bpm Sonogrphr: Ishaan King RDCS Pat. Stat.:Inpatient Room: [facility] Study Status:Final Echo Event ID:[id number] Order ID: [id number] Reason for Study:Arrhythmias - Sustained or nonsustained [...] detected by Doppler. MEASUREMENTS: 2D Parasternal [employer] LVOT 2.1 cm LA Ds 3.9 cm [...] AM Sylvain Fuentes M.D. Performing Organization Address City/[facility] Phone Number [facility] [address] [place] [address] ALT (SGPT) (06/18/2017 7:15 AM) ALT 16 5 - 50 U/L [facility] DEPARTMENT OF PATHOLOGY AND GENOMIC MEDICINE Specimen Plasma specimen Performing Organization Address [facility]comn Phone Number [facility] DEPARTMENT OF PATHOLOGY AND [address] [place] [address] GENOMIC MEDICINE AST (SGOT) (06/18/2017 7:15 AM) AST 28 10 - 35 U/L [facility] DEPARTMENT OF PATHOLOGY AND GENOMIC MEDICINE Specimen Plasma specimen Performing Organization Address [facility] [place] Phone Number [facility] DEPARTMENT OF PATHOLOGY AND [address] [place] [address] GENOMIC MEDICINE after 01/26/2017 Insurance Payer Benefit Plan / Group Subscriber ID Type Phone Address MEDICARE MEDICARE PART A AND B xxxxxxxxxx Medicare [place], [place] COMMERCIAL MISC MISC COMMERCIAL xxxxxx-xx Commercial
--- OUTSIDE RECORDS SUMMARY | 2018-01-27 13:39 | XMS REPORT | Clinical Summary ---
:1950 Author Organization [facility] Address [address] [place] [address] Care Team Providers Name Role Phone Unavailable Primary Care Provider Unavailable Allergies Active Allergy Reactions Severity Noted Date Comments Meperidine 07/30/2012 Iodine And Iodide Containing Products 07/30/2012 Cephalexin 07/30/2012 Levofloxacin 07/30/2012 Morphine 07/30/2012 Penicillins 07/30/2012 Itraconazole 07/30/2012 Medications Medication Sig Dispensed Refills Start Date End Date Status leflunomide (ARAVA) 20 Take 20 mg by 0 Active MG tablet mouth daily. sulfaSALAzine Take 500 mg by 0 Active (AZULFIDINE) 500 mg mouth 2 (two) tablet times daily. furosemide (LASIX) 40 MG Take 40 mg by 0 Active tablet mouth 2 (two) times daily. olmesartan (BENICAR) 40 Take 40 mg by 0 Active MG tablet mouth daily. cloNIDine (CATAPRES) 0.2 Take 0.2 mg by 0 Active MG tablet mouth 2 (two) times daily . potassium chloride Take by mouth 0 Active (KAYCIEL) 10 % solution daily. fluticasone-salmeterol Inhale 1 puff 0 Active (ADVAIR) 250-50 mcg/dose into the lungs diskus inhaler daily. TIOTROPIUM BROMIDE Inhale into the 0 Active (SPIRIVA WITH HANDIHALER lungs. INHL) pantoprazole (PROTONIX) Take 40 mg by 0 Active 40 MG tablet mouth daily. mometasone (NASONEX) 50 2 sprays by Nasal 0 Active mcg/actuation nasal route daily. spray gabapentin (NEURONTIN) Take 600 mg by 0 Active 300 MG capsule mouth 2 (two) times daily . traMADol (ULTRAM) 50 mg Take 50 mg by 0 Active tablet mouth every 6 (six) hours as needed. roflumilast (DALIRESP) Take 500 mcg by 0 Active 500 mcg Tab mouth daily. nebivolol 20 mg Tab Take 1 tablet (20 30 tablet 0 08/15/2013 Active mg total) by mouth daily. omeprazole (PRILOSEC) 40 Take 40 mg by 0 Active MG capsule mouth daily. venlafaxine (EFFEXOR) 75 Take 75 mg by 0 Active MG tablet mouth 2 (two) times daily. predniSONE (DELTASONE) 7.5 mg daily . 0 08/15/2013 Active 20 MG tablet SULFAMETHOXAZOLE/TRIMETH Take 1 tablet by 0 Active OPRIM (BACTRIM ORAL) mouth 2 (two) times daily. methylPREDNISolone Take 7.5 mg by 0 Active (MEDROL) 4 MG tablet mouth daily With additional 2 mg. nitrofurantoin Take 100 mg by 0 Active (MACRODANTIN) 100 MG mouth 2 (two) capsule times daily. Missing or Non-Formulary Take 50 mg by 0 Active Medication mouth imbeda . amLODIPine (NORVASC) 10 Take 10 mg by 0 Active MG tablet mouth daily 5 mg at night . potassium chloride SA Take 20 mEq by 0 Active (K-DUR,KLOR-CON) 20 MEQ mouth 2 (two) tablet times daily. DULoxetine (CYMBALTA) 30 Take 30 mg by 0 Active MG capsule mouth 2 (two) times daily. arformoterol (BROVANA) Take 15 mcg by 0 Active 15 mcg/2 mL nebulizer nebulization 2 solution (two) times daily. umeclidinium-vilanterol Inhale 1 puff by 0 Active (ANORO ELLIPTA) 62.5-25 mouth via inhaler mcg/actuation DsDv daily. pirfenidone (ESBRIET) Take 801 mg by 0 Active 267 mg Cap mouth 3 (three) times daily. HYDROcodone-acetaminophe Take 1 tablet by 0 Active n (VICODIN) 5-500 mg per mouth every 6 tablet (six) hours as needed for Pain. methadone (DOLOPHINE) 10 Take 10 mg by 0 Active MG tablet mouth every 6 (six) hours as needed for Pain. pregabalin (LYRICA) 25 Take 25 mg by 0 Active MG capsule mouth 2 (two) times daily. sucralfate (CARAFATE) 1 Take 1 g by mouth 0 Active gram tablet 4 (four) times daily. cholecalciferol, vitamin Take 10,000 Units 0 Active D3, 1,000 unit capsule by mouth daily . amitriptyline (ELAVIL) Take 50 mg by 0 Active 50 MG tablet mouth 2 (two) times daily. propafenone (RYTHMOL) Take 150 mg by 0 Active 150 MG tablet mouth every 8 (eight) hours. aspirin 81 MG chewable Take 81 mg by 0 Active tablet mouth daily. dilTIAZem (CARDIZEM) 120 Take 120 mg by 0 Active MG tablet mouth daily . hydroCHLOROthiazide Take 25 mg by 0 Active (HYDRODIURIL) 25 MG mouth daily. tablet clindamycin (CLEOCIN) Take 150 mg by 0 Active 150 MG capsule mouth 3 (three) times daily. Hospital, Clinic, or Ordered Dose Route Frequency Start Date End Date Status Other Facility Administered Medication acetaminophen 650 mg Oral Once 09/09/2013 Active (TYLENOL) tablet 650 [...] 45 g sodium chloride 0.9% IV Once 02/15/2017 Ended (NS) infusion 7 diphenhydrAMINE 25 mg IV Once 02/15/2017 Ended (BENADRYL) injection 7 25 mg immune globulin 45 g IV Once 02/15/2017 Ended (human) (PRIVIGEN) 7 injection 45 g cloNIDine HCl 0.1 mg Oral Once 02/15/2017 Ended (CATAPRES) tablet 7 0.1 mg cloNIDine HCl 0.1 mg Oral Once as needed 02/15/2017 Ended (CATAPRES) tablet 7 0.1 mg immune globulin 45 g IV Once 03/17/2017 Ended (human) (PRIVIGEN) 7 injection 45 gIndications: CIDP (chronic inflammatory demyelinating polyneuropathy) (HCC) sodium chloride 0.9% IV Once 03/17/2017 Ended (NS) 7 infusionIndications: CIDP (chronic inflammatory demyelinating polyneuropathy) (HCC) diphenhydrAMINE 25 mg IV Once 03/17/2017 Ended (BENADRYL) injection 7 25 mgIndications: CIDP (chronic inflammatory demyelinating polyneuropathy) (HCC) immune globulin 45 g IV Once 04/14/2017 Discontinued (human) (PRIVIGEN) 8 injection 45 g immune globulin 45 g IV Once 04/18/2017 Ended (human) and maltose 8 (OCTAGAM) injection 45 gIndications: CIDP (chronic inflammatory demyelinating polyneuropathy) ([facility]) sodium chloride 0.9% IV Once 04/18/2017 Ended (NS) infusion 8 diphenhydrAMINE 25 mg IV Once 04/18/2017 Ended (BENADRYL) injection 8 25 mg immune globulin 45 g IV Once 05/16/2017 Ended (human) and maltose 8 (OCTAGAM) injection 45 g sodium chloride 0.9% IV Once 05/16/2017 Ended (NS) infusion 8 diphenhydrAMINE 25 mg IV Once 05/16/2017 Ended (BENADRYL) injection 8 25 mg sodium chloride 0.9% IV Once 06/13/2017 Ended (NS) infusion 8 diphenhydrAMINE 25 mg IV Once 06/13/2017 Ended (BENADRYL) injection 8 25 mg immune globulin 45 g IV Once 06/13/2017 Ended (human) (PRIVIGEN) 8 injection 45 g immune globulin 45 g IV Once 07/11/2017 Ended (human) and maltose 8 (OCTAGAM) injection 45 gIndications: CIDP (chronic inflammatory demyelinating polyneuropathy) ([facility]) sodium chloride 0.9% IV Once 07/11/2017 Ended (NS) 8 infusionIndications: CIDP (chronic inflammatory demyelinating polyneuropathy) ([facility]) diphenhydrAMINE 25 mg IV Once 07/11/2017 Ended (BENADRYL) injection 8 25 mgIndications: CIDP (chronic inflammatory demyelinating polyneuropathy) ([facility]) immune globulin 45 g IV Once 08/10/2017 Ended (human) and maltose 8 (OCTAGAM) injection 45 gIndications: CIDP (chronic inflammatory demyelinating polyneuropathy) (HCC) sodium chloride 0.9% IV Once 08/10/2017 Ended (NS) infusion 8 diphenhydrAMINE 25 mg IV Once 08/10/2017 Ended (BENADRYL) injection 8 25 mg immune globulin 45 g IV Once 09/12/2017 Ended (human) and maltose 8 (OCTAGAM) injection 45 gIndications: CIDP (chronic inflammatory demyelinating polyneuropathy) ([facility]) sodium chloride 0.9% IV Once 09/12/2017 Ended (NS) infusion 8 diphenhydrAMINE 25 mg IV Once 09/12/2017 Ended (BENADRYL) injection 8 25 mg immune globulin 40 g IV Once 10/12/2017 Ended (human) and maltose 8 (OCTAGAM) injection 40 gIndications: CIDP (chronic inflammatory demyelinating polyneuropathy) (HCC) sodium chloride 0.9% IV Once 10/12/2017 Ended (NS) infusion 8 diphenhydrAMINE 25 mg IV Once 10/12/2017 Ended (BENADRYL) injection 8 25 mg immune globulin 40 g IV Once 11/09/2017 Ended (human) and maltose 8 (OCTAGAM) injection 40 gIndications: CIDP (chronic inflammatory demyelinating polyneuropathy) ([facility]) sodium chloride 0.9% IV Once 11/09/2017 Ended (NS) infusion 8 diphenhydrAMINE 25 mg IV Once 11/09/2017 Ended (BENADRYL) injection 8 25 mg Active Problems Problem Noted Date COPD (chronic obstructive pulmonary disease) 08/09/2013 Bronchiectasis 08/09/2013 Hypogammaglobulinemia 12/03/2012 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 Encounters Date Type Specialty Care Team Description 12/07/2017 Procedure visit Oncology Rian Olivera, CIDP (chronic inflammatory MD demyelinating polyneuropathy) Jin Morris ([facility]) MD Darryl 11/09/2017 Procedure visit Oncology Rian Olivera, CIDP (chronic inflammatory MD demyelinating polyneuropathy) Jin Morris ([facility]) MD Viktor Andrews Shannon, RN 10/12/2017 Procedure visit Oncology Rian Olivera, CIDP (chronic inflammatory MD demyelinating polyneuropathy) Jin Morris ([facility]) MD Bekah Andrews Rachel L, RN 09/12/2017 Procedure visit Oncology Rian Olivera, CIDP (chronic inflammatory MD demyelinating polyneuropathy) Jin Morris ([facility]) MD Syl Andrews Dana M, RN 08/10/2017 Procedure visit Oncology Rian Olivera, CIDP (chronic inflammatory MD demyelinating polyneuropathy) Jin Morris ([facility]) MD Kenney Andrews L R, RN 07/11/2017 Procedure visit Oncology Rian Olivera, CIDP (chronic inflammatory MD demyelinating polyneuropathy) Jin Morris ([facility]) (Primary Dx) MD Bakari Andrews Shalonda, RN 06/13/2017 Procedure visit Oncology Rian Olivera, Hypogammaglobulinemia (HCC) (Primary Dx) Jin Morris MD Alexander, L R, RN 05/16/2017 Procedure visit Oncology Rian Olivera, Hypogammaglobulinemia (HCC) (Primary Dx) Jin Morris MD Alexander, L R, RN 04/18/2017 Procedure visit Oncology Rian Olivera, CIDP (chronic inflammatory MD demyelinating polyneuropathy) Jin Morris ([facility]) (Primary Dx) MD Bakari Andrews Shalonda, RN 04/14/2017 Procedure visit Oncology Rian Olivera, Canceled (Patient) Jin Coppola MD 03/17/2017 Procedure visit Oncology Rian Olivera, CIDP (chronic inflammatory MD demyelinating polyneuropathy) Jin Morris ([facility]) (Primary Dx) MD Bekah Andrews Rachel L, RN 02/15/2017 Procedure visit Oncology Rian Olivera, Hypogammaglobulinemia (HCC) (Primary Dx) Jin Morris MD Raibon, Danielle L, RN after 01/26/2017 Family History Medical History Relation Name Comments [...] Assigned at Date Recorded Not on file Job Start Date Occupation Industry Not on file Not on file Not on file Travel History Travel Start Travel End No recent travel history available. 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 CREATININE Routine 07/11/2017 2:00 CIDP (chronic Results for this PM CDT inflammatory procedure are in demyelinating the results polyneuropathy) (HCC) section. BUN Routine 07/11/2017 2:00 CIDP (chronic Results for this PM CDT inflammatory procedure are in demyelinating the results polyneuropathy) ([facility]) section. CREATININE Routine 04/18/2017 11:28 CIDP (chronic Results for this AM STILL OPERATOR inflammatory procedure are in demyelinating the results polyneuropathy) ([facility]) section. BUN Routine 04/18/2017 11:28 CIDP (chronic Results for this AM STILL OPERATOR inflammatory procedure are in demyelinating the results polyneuropathy) ([facility]) section. after 01/26/2017 Results BUN and Creatinine (09/12/2017 11:27 AM CDT) BUN 20 7 - 21 mg/dL [facility] Creatinine 0.80Comment: Specimen 0.57 - 1.25 mg/dL [facility] moderately hemolyzed [facility] EGFR 72Comment: ESTIMATED GFR IS mL/min/1.73 sq m [facility] NOT ACCURATE CREATININE [facility]ENTER CLEARANCE IN PREDICTING GLOMERULAR FILTRATION RATE. ESTIMATED GFR IS NOT APPLICABLE FOR DIALYSIS PATIENTS. Specimen Blood Performing Organization Address [facility] Phone Number [address] [address] [phone] CENTER BUN (07/11/2017 2:00 PM CDT)Only the most recent of2 resultswithin the time period is included. BUN 14 7 - 21 mg/dL [facility] Specimen Blood Performing Organization Address [facility] Phone Number [address] [address] CENTER Creatinine (07/11/2017 2:00 PM CDT)Only the most recent of2 resultswithin the time period is included. Creatinine 0.78 0.57 - 1.25 mg/dL [facility] EGFR 74Comment: ESTIMATED GFR IS mL/min/1.73 sq m [facility] NOT ACCURATE CREATININE [facility]ENTER CLEARANCE IN PREDICTING GLOMERULAR FILTRATION RATE. ESTIMATED GFR IS NOT APPLICABLE FOR DIALYSIS PATIENTS. Specimen Blood Performing Organization Address [facility] Phone Number [address] [address] CENTER after 01/26/2017 Insurance Payer Benefit Plan / Group Subscriber ID Type Phone Address MEDICARE MEDICARE A B xxxxxxxxxx Medicare MCR SUPPLEMENT/INDIV[employer]UAL [employer] xxxxxxxx [facility] Advance Directives For more information, please contact:[address] [phone] Code Status Date Activated Date Inactivated Comments Code ONE 08/09/2013 4:35 PM 08/15/2013 3:38 PM All possible means of support , including: cardiac massage, mechanical ventilation, and defibrillation will be used to support life.
--- OUTSIDE RECORDS SUMMARY | 2018-01-27 13:39 | XMS REPORT ---
:1950 [facility] Address [address] [place] [address] Care Team Providers Name Role Phone JENNIFER [...] UREA NITROGEN (BEAKER) 20 mg/dL 7-21 (test oael=819) CREATININE (BEAKER) (test 0.80 mg/dL 0.57-1.25 Specimen moderately yxkm=593) hemolyzed EGFR (BEAKER) (test 72 mL/min/1.73 sq m ESTIMATED GFR IS NOT znoq=5418) ACCURATE CREATININE CLEARANCE IN PREDICTING GLOMERULAR FILTRATION RATE. ESTIMATED GFR IS NOT APPLICABLE FOR DIALYSIS PATIENTS. [id number] 15:50:00 Test Item Value Reference Range Comments BLOOD UREA NITROGEN (BEAKER) (test kllm=591) 14 mg/dL 7-21 [id number] 15:50:00 Test Item Value Reference Range Comments CREATININE (BEAKER) (test 0.78 mg/dL 0.57-1.25 cxpi=771) EGFR (BEAKER) (test 74 mL/min/1.73 sq m ESTIMATED GFR IS NOT jevs=8802) ACCURATE CREATININE CLEARANCE IN PREDICTING GLOMERULAR FILTRATION RATE. ESTIMATED GFR IS NOT APPLICABLE FOR DIALYSIS PATIENTS. [id number] 14:55:00 Test Item Value Reference Range Comments BLOOD UREA NITROGEN (BEAKER) (test pjlr=092) 11 mg/dL 7-21 [id number] 14:55:00 Test Item Value Reference Range Comments CREATININE (BEAKER) (test 0.65 mg/dL 0.57-1.25 lcxw=903) EGFR (BEAKER) (test 91 mL/min/1.73 sq m ESTIMATED GFR IS NOT pnci=1491) ACCURATE CREATININE CLEARANCE IN PREDICTING GLOMERULAR FILTRATION RATE. ESTIMATED GFR IS NOT APPLICABLE FOR DIALYSIS PATIENTS. BUN AND [id number] 15:59:00 Test Item Value Reference Range Comments BLOOD UREA NITROGEN 10 mg/dL 7-21 (BEAKER) (test xanj=421) CREATININE (BEAKER) (test 0.65 mg/dL 0.57-1.25 gkbq=459) EGFR (BEAKER) (test 91 mL/min/1.73 sq m ESTIMATED GFR IS NOT bwfd=3093) ACCURATE CREATININE CLEARANCE IN PREDICTING GLOMERULAR FILTRATION RATE. ESTIMATED GFR IS NOT APPLICABLE FOR DIALYSIS PATIENTS. [id number] 14:45:00 Test Item Value Reference Range Comments BLOOD UREA NITROGEN (BEAKER) (test sgqr=414) 13 mg/dL 7-21 [id number] 14:45:00 Test Item Value Reference Range Comments CREATININE (BEAKER) (test 0.74 mg/dL 0.57-1.25 lvdi=125) EGFR (BEAKER) (test 79 mL/min/1.73 sq m ESTIMATED GFR IS NOT fgat=4445) ACCURATE CREATININE CLEARANCE IN PREDICTING GLOMERULAR FILTRATION RATE. ESTIMATED GFR IS NOT APPLICABLE FOR DIALYSIS PATIENTS. BUN AND [id number] 14:55:00 Test Item Value Reference Range Comments BLOOD UREA NITROGEN 13 mg/dL 7-21 (BEAKER) (test qxfk=994) CREATININE (BEAKER) (test 0.69 mg/dL 0.57-1.25 qmto=309) EGFR (BEAKER) (test 85 mL/min/1.73 sq m ESTIMATED GFR IS NOT nijr=0478) ACCURATE CREATININE CLEARANCE IN PREDICTING GLOMERULAR FILTRATION RATE. ESTIMATED GFR IS NOT APPLICABLE FOR DIALYSIS PATIENTS. [id number] 17:24:00 Test Item Value Reference Range Comments BLOOD UREA NITROGEN (BEAKER) (test yaqb=251) 12 mg/dL 7-21 [id number] 17:24:00 Test Item Value Reference Range Comments CREATININE (BEAKER) (test 0.67 mg/dL 0.57-1.25 wrxz=658) EGFR (BEAKER) (test 89 mL/min/1.73 sq m ESTIMATED GFR IS NOT geak=1301) ACCURATE CREATININE CLEARANCE IN PREDICTING GLOMERULAR FILTRATION RATE. ESTIMATED GFR IS NOT APPLICABLE FOR DIALYSIS PATIENTS.
[2018-01-27 14:15] LABS: Absolute Lymphocytes (CBC) 0.5 K/uL (0.7-4.9); Absolute Monocytes 0.2 K/uL (0.1-1.3); Absolute Neutrophil 6.9 K/uL (1.8-8.0); Basophils % 0.1 % (0-1.3); Eosinophils % 0.1 % (0-4.4); Hematocrit 30.7 % (36.0-45.0); Lymphocytes % 6.9 % (15.3-44.8); MCH 27.9 pg (27.0-35.0); MCV 84.3 fL (80-100); MPV 8.3 fL (7.6-11.3); Monocytes % 2.5 % (3.3-12.3); RBC Red Blood Cell Count 3.64 M/uL (3.86-4.86)
[2018-01-27 14:25] LABS: Protime INR 1.38
[2018-01-27] MEDS ORDERED: NA CHLORIDE 0.9% 500 ML ONE (14:30)
[2018-01-27 14:32] LABS: Albumin 2.8 g/dL (3.4-5.0); Bilirubin Direct 0.3 mg/dL (0-0.2); Bilirubin Total 0.7 mg/dL (0.2-1.0); Magnesium 1.6 mg/dL (1.8-2.4); Potassium 3.5 mmol/L (3.5-5.1); Protein, Total 6.1 g/dL (6.4-8.2); Troponin (Emerg Dept Use Only) 0.19 ng/mL (0.0-0.045)
[2018-01-27 14:58] LABS: Anisocytosis 4+; Blood Morphology Comment NOTED (NOT SEEN); Hypochromasia 1+; Platelet Estimate ADEQ
[2018-01-27 14:59] LABS: Elliptocytes 1+; Poikilocytosis 1+; Polychromasia SLIGHT
--- NOTE | 2018-01-27 15:03 | RAD REPORT ---
EXAM DESCRIPTION: CT - Head C Spine Cap Maryuri Becker - 01/27/2018 2:43 pm CLINICAL HISTORY: Head and neck injury with chest and abdominal pain status post fall. Head and neck pain . TECHNIQUE: Computed axial tomography of the head and cervical spine was obtained Computed axial tomography of the chest, abdomen and pelvis was obtained. 100 cc Isovue-300 was given intravenously coronal and sagittal reconstruction was performed. All CT scans are performed using dose optimization technique as appropriate and may include automated exposure control or mA/KV adjustment according to patient size. COMPARISON: [address] chest November 2017 FINDINGS: An intracranial bleed is not seen. The ventricles are normal in caliber. An extra-axial fl uid collection is not noted. A cervical fracture is not seen. No dislocation is seen. Anterior fusion involves C6 and C7 A mediastinal hematoma is not noted. A pleural effusion is not present. A lung contusion is not seen. The right upper lobe mass is again demonstrated with mediastinal and right hilar lymphadenopathy. 15 millimeter left upper lobe opacities seen The liver, spleen, pancreas, adrenals, kidneys and bladder do not demonstrate a traumatic injury. Spl enic and renal cysts are present. Postsurgical changes involve the lumbar spine. IMPRESSION: 1. No acute intracranial abnormality is seen 2. A cervical fracture is not visualized. If the patient continues have symptoms to suggest intracran ial/spinal cord pathology then MRI would be recommended. 3. No traumatic injury involving the chest, abdomen or pelvis is seen. 4. 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 Mediastinal and hilar lymphadenopathy likely r epresents neoplastic involvement.
--- NOTE | 2018-01-27 15:10 | RAD REPORT ---
EXAM DESCRIPTION: RADChest Single View01/27/2018 2:45 pm CLINICAL HISTORY: Chest pain COMPARISON: November 2012 FINDINGS: Right upper lobe mass with mediastinal and hilar lymphadenopathy is present. The heart is mildly enlarged. Central venous catheter has its tip in superior vena cava
[2018-01-27] MEDS ORDERED: NA CHLORIDE 0.9% 1,000 ML ONE ×2 (15:31→17:07)
[2018-01-27 15:35] LABS: Urine Blood NEGATIVE (NEG); Urine Glucose NEGATIVE (NEG); Urine Protein 3+ (NEG); Urine pH 7.5 (5.0-7.0)
[2018-01-27 15:47] LABS: Urine Bacteria <20 /HPF (<20); Urine Culture Reflex Order NOT NEEDED; Urine RBC <5 /HPF (NONE SEEN)
[2018-01-27 15:48] LABS: Urine Coarse Granular Casts 0-5 /LPF (NONE SEEN); Urine Mucus 1+ /HPF (NONE SEEN)
[2018-01-27] MEDS ORDERED: METRONIDAZOLE 500mg IVPB 500 MG/100 ML BAG IV ONE (15:51)
--- NOTE | 2018-01-27 16:48 | ER ---
Nurse's Notes [facility] Name: Marlen Santacruz Age: 67 yrs Sex: Female : 1950 Arrival Date: 01/27/2018 Time: 13:35 Bed 24 Private MD: Diagnosis: Other sepsis;Other slipping, tripping and stumbling and falls;Diarrhea, unspecified Presentation: 01/27 13:32 Presenting complaint: EMS states: Found on bathroom floor, covered in diarrhea. Unknown hb downtime, unknown LOC. Contusion to foreahead noted. AOx4. Care prior to arrival: None. Mechanism of Injury: Fall from standing position. Trauma event details: Injury occurred in the [facility], Injury occurred: at home. Injury occurred: January 26, 2018. 13:32 Acuity: LINDEN 2 hb 13:32 Method Of Arrival: EMS: [facility] hb 13:45 Transition of care: patient was not received from another setting of care. Onset of kr2 symptoms is unknown. Risk Assessment: Do you want to hurt yourself or someone else? Patient reports no desire to harm self or others. Initial Sepsis Screen: Does the patient meet any 2 criteria? RR > 20 per min. Systolic BP < 90 mmHg. HR > 90 bpm. Does the patient have a suspected source of infection? No. Patient's initial sepsis screen is negative. Trauma Activation: Alert Physician: ED Physician; Name: Dr. Childress; Notified At: 13:30; Arrived At: 13:32 Physician: General Surgeon; Name: ; Notified At: 13:30; Arrived At: Physician: Radiology; Name: ; Notified At: 13:30; Arrived At: Physician: Respiratory; Name: ; Notified At: 13:30; Arrived At: Physician: Lab; Name: ; Notified At: 13:30; Arrived At: Historical: - Allergies: 14:34 Ciprofloxacin; kr2 14:34 Demerol; kr2 14:34 Ibuprofen; kr2 14:34 Iodine; kr2 14:34 Keflex; kr2 14:34 Levaquin; kr2 14:34 Morphine; kr2 14:34 PENICILLINS; kr2 14:34 Sporanox; kr2 - Home Meds: 14:34 Prednisone Oral [Active]; Magnesium Oxide Oral [Active]; kr2 15:59 clonidine HCl 0.1 mg oral tab 3 times per day [Active]; Cartia XT 120 mg oral cp24 kr2 [Active]; lisinopril 20 mg Oral tab twice a day [Active]; Eliquis 5 mg oral tab 1 tab 2 times per day [Active]; Tessalon Perles 100 mg Oral cap 2 caps 3 times per day for Cough [Active]; Nasonex 50 mcg/actuation Nasal spry once daily [Active]; potassium chloride 10 mEq Oral cpER 2 caps 2 times per day [Active]; antacid/adán/lido 1:1:1 Swish and swallow 2 teaspoons by mouth 10 minutes before meals and every night at bedtime [Active]; Lyrica Oral 1 cap [Active]; duloxetine 60 mg oral cpDR [Active]; Mucinex 600 mg Oral Ta12 1 tab every 12 hours [Active]; hydralazine 50 mg Oral tab 1 tab 2 times per day [Active]; omeprazole 40 mg Oral cpDR 1 cap 2 times per day [Active]; leflunomide 10 mg oral tab 2 tabs once daily [Active]; amlodipine 10 mg tab 1 tab once daily [Active]; sulfasalazine 500 mg Oral tab twice a day [Active]; dofetilide oral oral 1 cap 2 times per day [Active]; - PMHx: 14:34 ADD/ADHD; Arthritis; Atrial Fib; COPD; Depression; GERD; Hypertension; Polyps Colon; kr2 Polyps Stomach; Rheumatoid Arthritis; Staph Infection Left Great Toe; - Immunization history: Last tetanus immunization: unknown. - Social history:: Smoking status: unknown. - Ebola Screening: : No symptoms or risks identified at this time. Screenin:45 Abuse screen: Denies threats or abuse. Denies injuries from another. Nutritional kr2 screening: No deficits noted. Tuberculosis screening: No symptoms or risk factors identified. Fall Risk Fall in past 12 months (25 points). Primary Survey: 13:40 A: Airway: patent, Oxygen via nasal cannula at 2 liters per minute. Breathing/Chest: hb Respiratory pattern: regular, Respiratory effort: spontaneous, unlabored, Breath sounds: clear, bilaterally. Chest inspection: symmetrical rise and fall of the chest. Circulation: Skin color: pale, Skin temperature: dry, cool. Disability Alert. 13:45 Reassessment Airway Airway Patent Breathing/Chest Respiratory pattern Regular kr2 Respiratory effort Spontaneous Unlabored Circulation Heart tones Present. Assessment: 13:45 Reassessment: Patient covered from head to toe in dried feces. Patient reports she has kr2 been having diarrhea for several weeks. Patient given bath and clean bedding. Verbal reassurance given. General: Appears uncomfortable, obese, Behavior is cooperative, anxious, restless. Pain: Complains of pain in chest Pain does not radiate. Pain currently is 10 out of 10 on a pain scale. Quality of pain is described as pressure, sharp, Is continuous, Alleviated by nothing. Neuro: Level of Consciousness is awake, alert, obeys commands, Oriented to person, place, situation. Cardiovascular: Heart tones S1 S2 present Patient's skin is warm and dry. Respiratory: Airway is patent Respiratory effort is even, unlabored, Respiratory pattern is regular, symmetrical. GI: Abdomen is non-distended, obese, Reports diarrhea. : Denies burning with urination. EENT: Oral mucosa is moist. Derm: Skin is intact, with poor turgor Skin is pale, pink, Skin temperature is warm Bruising that is dark purple, on forehead. Musculoskeletal: Circulation, motion, and sensation intact. Injury Description: Patient reports falling at home. Family reported finding her on the floor today and having to enter through a window to get into the house. 14:30 Reassessment: Reassessment: Patient appears in no apparent distress at this time. kr2 Patient and/or family updated on plan of care and expected duration. Pain level reassessed. Patient is alert, oriented x 3, equal unlabored respirations, skin warm/dry/pink. Cleaned of incontinence. 15:30 Reassessment: Patient appears in no apparent distress at this time. Patient and/or kr2 family updated on plan of care and expected duration. Pain level reassessed. Patient is alert, oriented x 3, equal unlabored respirations, skin warm/dry/pink. 16:30 Reassessment: Patient appears in no apparent distress at this time. Patient and/or kr2 family updated on plan of care and expected duration. Pain level reassessed. Patient is alert, oriented x 3, equal unlabored respirations, skin warm/dry/pink. Patient states symptoms have improved. 17:30 Reassessment: Patient appears in no apparent distress at this time. Patient and/or kr2 family updated on plan of care and expected duration. Pain level reassessed. Patient is alert, oriented x 3, equal unlabored respirations, skin warm/dry/pink. Cleaned of incontinence, stool is brown liquid absorbed by incontinence pad. 18:39 Reassessment: Patient appears in no apparent distress at this time. Patient and/or kr2 family updated on plan of care and expected duration. Pain level reassessed. Patient is alert, oriented x 3, equal unlabored respirations, skin warm/dry/pink. Patient states symptoms have improved. Vital Signs: 13:40 BP 89 / 53; Pulse 68; Resp 18; Temp 97.9; Pulse Ox 96% on R/A; Pain 6/10; hb 14:27 BP 101 / 62; Pulse 110; Resp 21; Pulse Ox 97% on R/A; kr2 15:48 BP 118 / 75; Pulse 110; Resp 27; Pulse Ox 95% on 2 lpm NC; kr2 17:30 BP 124 / 97; Pulse 114; Resp 20; Pulse Ox 97% on 2 lpm NC; kr2 18:20 BP 130 / 96; Pulse 112; Resp 22; Temp 97.4; Pulse Ox 97% on 2 lpm NC; kr2 20:30 BP 119 / 64; Pulse 108; Resp 20; Temp 97.5; Pulse Ox 98% on 2 lpm NC; kr2 Marion Coma Score: 13:45 Eye Response: spontaneous(4). Verbal Response: oriented(5). Motor Response: obeys kr2 commands(6). Total: 15. Trauma Score (Adult): 13:40 Eye Response: spontaneous(1); Verbal Response: oriented(1); Motor Response: obeys hb commands(2); Systolic BP: > 89 mm Hg(4); Respiratory Rate: 10 to 29 per min(4); Marion Score: 15; Trauma Score: 12 ED Course: 13:35 Patient arrived in ED. em1 13:39 Triage completed. hb 13:41 Arm band placed on. hb 13:43 Jd Pereira PA is PHCP. cp 13:43 Anthony Childress MD is Attending Physician. cp 13:45 Thermoregulation: warm blanket given to patient. kr2 14:00 Cleaned of incontinence. Linen changed. jp3 14:00 Oxygen administration via nasal cannula \T\ 2L/min. kr2 14:13 Inserted saline lock: 22 gauge in right upper arm, using aseptic technique. Blood la1 collected. 14:20 Initial lab(s) drawn, by ED staff, sent to lab. jp3 14:42 XRAY Chest (1 view) In Process Unspecified. EDMS 14:43 CT Traumagram (Head C Spine CAP W Con) In Process Unspecified. EDMS 14:43 Note: Per Dr. Childress no need to wait on labs. . cw1 14:50 Zuniga cath inserted, using sterile technique, 16 Fr., by fl, balloon inflated, urine kr2 specimen collected. returned apris urine. Patient tolerated well. 15:10 Urine collected: Zuniga catheter specimen, clear, paris colored. jp3 15:27 Placed in gown. Bed in low position. Call light in reach. Side rails up X 1. Side rails jp3 up X2. Warm blanket given. Pillow given. balance wheel screw hole tapper on. Pulse ox on. NIBP on. 16:46 Jonatan West MD is Hospitalizing Provider. cp 19:03 Ana Maria Azevedo RN is Primary Nurse. kr2 20:41 No provider procedures requiring assistance completed. Patient admitted, IV remains in kr2 place. Administered Medications: 14:48 Not Given (Physician Discretion): NS 0.9% 500 ml IV at bolus once cp 15:15 Drug: NS 0.9% 1000 ml Route: IV; Rate: 1 bolus; Site: right antecubital; kr2 16:15 Follow up: Response: No adverse reaction; IV Status: Completed infusion kr2 15:50 Drug: metroNIDAZOLE 500 mg Volume: 100 ml; Route: IVPB; Infused Over: 30 mins; Site: kr2 right antecubital; 17:30 Follow up: Response: No adverse reaction; IV Status: Completed infusion kr2 15:55 Drug: Magnesium Sulfate 1 grams Route: IVPB; Infused Over: 1 hrs; Site: right kr2 antecubital; 17:00 Follow up: Response: No adverse reaction; IV Status: Completed infusion kr2 17:13 Drug: vancoMYCIN 1 grams Route: IVPB; Infused Over: 2 hrs; Site: right antecubital; kr2 19:30 Follow up: Response: No adverse reaction; IV Status: Completed infusion kr2 17:13 Drug: NS 0.9% 1000 ml Route: IV; Rate: 1 bolus; Site: right antecubital; kr2 17:50 Follow up: Response: No adverse reaction; IV Status: Completed infusion kr2 17:57 Drug: NS 0.9% 1000 ml Route: IV; Rate: 100 ml/hr; Site: right antecubital; kr2 20:40 Follow up: Response: No adverse reaction; IV Status: Infusion continued upon admission kr2 18:09 Drug: Tylenol 1000 mg Route: PO; kr2 19:00 Follow up: Response: No adverse reaction; Pain is decreased kr2 Intake: 20:30 PO: 240ml; IV: 2800ml; Total: 3040ml. kr2 Output: 20:30 Urine: 800ml (Zuniga); Total: 800ml. kr2 Outcome: 16:47 Decision to Hospitalize by Provider. cp 18:43 Patient's length of stay in the Emergency Department was greater than 2 hours. kr2 20:41 Admitted to ICU accompanied by nurse, accompanied by tech, family with patient, via kr2 stretcher, room 2, with oxygen, on monitor, with chart, Report called to Latasha 20:41 Condition: stable 20:41 Instructed on the need for admit, Demonstrated understanding of instructions. 20:45 Patient left the ED. kr2 Signatures: Dispatcher [employer] EDMS Ernst Almonte em1 Lory Stevens cw1 Carlos Archibald RN RN la1 Jd Pereira PA PA cp Alexa Gandara RN RN hb Reaves, Karey, RN RN kr2 Sebastien Kauffman jp3 Corrections: (The following items were deleted from the chart) 16:02 14:34 Home Meds: clonidine HCl 0.3 mg oral tab three times a day; kr2 kr2 16:02 14:34 Home Meds: Cartia XT 240 mg Oral cp24; kr2 kr2 18:24 14:27 BP 101 / 62; Pulse 70bpm; Resp 17bpm; Pulse Ox 97% RA; kr2 kr2 18:40 15:48 Reassessment: kr2 kr2 18:42 13:45 PO 240, (Water), Intake Total 240. kr2 kr2 18:44 18:42 PO 240, (Water), Intake Total 240. kr2 kr2
--- NOTE | 2018-01-27 16:48 | EDPHYS ---
Physician Documentation [facility] Name: Marlen Santacruz Age: 67 yrs Sex: Female : 1950 Arrival Date: 01/27/2018 Time: 13:35 Bed 24 Private MD: ED Physician Anthony Childress HPI: 01/27 14:00 This 67 yrs old Female presents to ER via EMS with complaints of Fall Injury. cp 14:00 Details of fall: The patient fell from an upright position. Onset: The symptoms/episode cp began/occurred last night. Associated injuries: The patient sustained injury to the head, contusion, hematoma. 14:00 Severity of symptoms: in the emergency department the symptoms are unchanged. cp Historical: - Allergies: 14:34 Ciprofloxacin; kr2 14:34 Demerol; kr2 14:34 Ibuprofen; kr2 14:34 Iodine; kr2 14:34 Keflex; kr2 14:34 Levaquin; kr2 14:34 Morphine; kr2 14:34 PENICILLINS; kr2 14:34 Sporanox; kr2 - Home Meds: 14:34 Prednisone Oral [Active]; Magnesium Oxide Oral [Active]; kr2 15:59 clonidine HCl 0.1 mg oral tab 3 times per day [Active]; Cartia XT 120 mg oral cp24 kr2 [Active]; lisinopril 20 mg Oral tab twice a day [Active]; Eliquis 5 mg oral tab 1 tab 2 times per day [Active]; Tessalon Perles 100 mg Oral cap 2 caps 3 times per day for Cough [Active]; Nasonex 50 mcg/actuation Nasal spry once daily [Active]; potassium chloride 10 mEq Oral cpER 2 caps 2 times per day [Active]; antacid/adán/lido 1:1:1 Swish and swallow 2 teaspoons by mouth 10 minutes before meals and every night at bedtime [Active]; Lyrica Oral 1 cap [Active]; duloxetine 60 mg oral cpDR [Active]; Mucinex 600 mg Oral Ta12 1 tab every 12 hours [Active]; hydralazine 50 mg Oral tab 1 tab 2 times per day [Active]; omeprazole 40 mg Oral cpDR 1 cap 2 times per day [Active]; leflunomide 10 mg oral tab 2 tabs once daily [Active]; amlodipine 10 mg tab 1 tab once daily [Active]; sulfasalazine 500 mg Oral tab twice a day [Active]; dofetilide oral oral 1 cap 2 times per day [Active]; - PMHx: 14:34 ADD/ADHD; Arthritis; Atrial Fib; COPD; Depression; GERD; Hypertension; Polyps Colon; kr2 Polyps Stomach; Rheumatoid Arthritis; Staph Infection Left Great Toe; - Immunization history: Last tetanus immunization: unknown. - Social history:: Smoking status: unknown. - Ebola Screening: : No symptoms or risks identified at this time. ROS: 14:05 Constitutional: Positive for poor PO intake, Negative for body aches, chills, fever. cp 14:05 Eyes: Negative for injury, pain, redness, and discharge. cp 14:05 ENT: Negative for drainage from ear(s), ear pain, sore throat, difficulty swallowing, difficulty handling secretions. 14:05 Cardiovascular: Negative for chest pain, edema. 14:05 Respiratory: Negative for cough, shortness of breath, wheezing. 14:05 Abdomen/GI: Positive for abdominal pain, diarrhea, Negative for vomiting, constipation, black/tarry stool, rectal bleeding. 14:05 Skin: Negative for cellulitis, rash. 14:05 Neuro: Negative for altered mental status. 14:05 All other systems are negative. Exam: 14:00 ECG was reviewed by the Attending Physician. cp 14:10 Constitutional: The patient appears in no acute distress, alert, awake, cp non-diaphoretic, non-toxic, well developed, well nourished, unkempt. 14:10 Head/face: Noted is contusion, that is superficial, of the forehead, Sinus tenderness, cp is not appreciated. 14:10 Eyes: Periorbital structures: appear normal, Pupils: equal, round, and reactive to light and accomodation, Extraocular movements: intact throughout, Conjunctiva: normal, no exudate, no injection, Sclera: no appreciated abnormality, Lids and lashes: appear normal, bilaterally. 14:10 ENT: External ear(s): are unremarkable, Ear canal(s): are normal, clear, TM's: dullness, bilaterally, Nose: is normal, Mouth: Lips: dry, Oral mucosa: dry, Posterior pharynx: is normal, airway is patent, no erythema, no exudate, Voice: is normal. 14:10 Neck: C-spine: vertebral tenderness, is not appreciated, crepitus, is not appreciated, ROM/movement: is normal, is supple, without pain, no range of motions limitations, no meningismus, no nuchal rigidity. 14:10 Chest/axilla: Inspection: normal, Palpation: is normal, no crepitus, no tenderness. 14:10 Cardiovascular: Rate: tachycardic, Rhythm: regular, Edema: is not appreciated, JVD: is not appreciated. 14:10 Respiratory: the patient does not display signs of respiratory distress, Respirations: normal, no use of accessory muscles, no retractions, no splinting, no tachypnea, labored breathing, is not present, Breath sounds: are clear throughout, no decreased breath sounds, no stridor, no wheezing. 14:10 Abdomen/GI: Inspection: abdomen appears normal, Bowel sounds: active, all quadrants, Palpation: soft, in all quadrants, mild abdominal tenderness, in all quadrants. 14:10 Musculoskeletal/extremity: Exam is negative for decreased range of motion, deformity, injury. 14:10 Skin: cellulitis, is not appreciated, no rash present. 14:10 Neuro: Orientation: to person, situation, Mentation: lucid, able to follow commands, Cerebellar function: is grossly normal, Motor: moves all fours, strength is normal, Sensation: is normal. Vital Signs: 13:40 BP 89 / 53; Pulse 68; Resp 18; Temp 97.9; Pulse Ox 96% on R/A; Pain 6/10; hb 14:27 BP 101 / 62; Pulse 110; Resp 21; Pulse Ox 97% on R/A; kr2 15:48 BP 118 / 75; Pulse 110; Resp 27; Pulse Ox 95% on 2 lpm NC; kr2 17:30 BP 124 / 97; Pulse 114; Resp 20; Pulse Ox 97% on 2 lpm NC; kr2 18:20 BP 130 / 96; Pulse 112; Resp 22; Temp 97.4; Pulse Ox 97% on 2 lpm NC; kr2 20:30 BP 119 / 64; Pulse 108; Resp 20; Temp 97.5; Pulse Ox 98% on 2 lpm NC; kr2 [place] Coma Score: 13:45 Eye Response: spontaneous(4). Verbal Response: oriented(5). Motor Response: obeys kr2 commands(6). Total: 15. Trauma Score (Adult): 13:40 Eye Response: spontaneous(1); Verbal Response: oriented(1); Motor Response: obeys hb commands(2); Systolic BP: > 89 mm Hg(4); Respiratory Rate: 10 to 29 per min(4); [place] Score: 15; Trauma Score: 12 MDM: 13:47 Patient medically screened. 16:45 Data reviewed: vital signs, nurses notes, lab test result(s), EKG, radiologic studies, cp CT scan, plain films. 16:45 Test interpretation: by ED physician or midlevel provider: ECG, plain radiologic cp studies. 16:45 Physician consultation: Jonatan West MD was contacted at 16:45, regarding admission, cp patient's condition. 16:45 Response to treatment: the patient's symptoms have mildly improved after treatment. 01/27 13:47 Order name: Basic Metabolic Panel; Complete Time: 14:41 01/27 14:41 Interpretation: Normal except: BUN 21; CRE 1.40; GFR 38. 01/27 13:47 Order name: CBC with Diff; Complete Time: 15:12 01/27 14:44 Interpretation: Normal except: RBC 3.64; HGB 10.2; HCT 30.7; RDW 20.1; DAX% 90.4; LYM% cp 6.9; MN% 2.5; LYMA 0.5. 01/27 13:47 Order name: LFT's; Complete Time: 14:41 01/27 14:48 Interpretation: Normal except: BILID 0.3; TP 6.1; ALB 2.8; A/G 0.8. 01/27 13:47 Order name: Magnesium; Complete Time: 14:41 01/27 15:22 Interpretation: Abnormal: MG 1.6. 01/27 13:47 Order name: NT PRO-BNP; Complete Time: 14:41 01/27 15:22 Interpretation: Abnormal: NT PRO-BNP 4723. 01/27 13:47 Order name: PT-INR; Complete Time: 14:41 01/27 13:47 Order name: Troponin (emerg Dept Use Only); Complete Time: 14:41 01/27 15:13 Interpretation: Abnormal: TROPED 0.19. 01/27 13:47 Order name: Blood Culture Adult (2) 01/27 13:47 Order name: Procalcitonin; Complete Time: 14:47 01/27 14:48 Interpretation: Abnormal: Procalcitonin 7.64. 01/27 13:47 Order name: Lactate; Complete Time: 14:47 01/27 14:48 Interpretation: Abnormal: LAC 3.5. 01/27 14:55 Order name: Manual Differential; Complete Time: 15:12 EDTX 01/27 15:12 Interpretation: Normal except: LYM 9; BANDS [F] 16. 01/27 15:09 Order name: Stool Culture 01/27 15:09 Order name: Rotavirus Antigen 01/27 13:47 Order name: CT Traumagram (Head C Spine CAP W Con); Complete Time: 15:12 01/27 13:47 Order name: XRAY Chest (1 view); Complete Time: 15:15 01/27 15:09 Order name: CDIFF 01/27 15:10 Order name: Urine Dipstick--Ancillary (enter results); Complete Time: 16:34 em1 01/27 15:17 Order name: Urine Microscopic Only; Complete Time: 16:34 01/27 15:17 Order name: Urine Culture 01/27 16:36 Order name: CK; Complete Time: 17:53 01/27 17:53 Interpretation: Abnormal: CPK 199. 01/27 16:36 Order name: Ckmb; Complete Time: 17:53 01/27 17:54 Interpretation: Abnormal: CKMB 5.7. 01/27 18:01 Order name: Lactate Sepsis 2 HR Follow-up [facility] 01/27 18:28 Order name: ABG Arterial Blood Gas [facility] 01/27 13:47 Order name: EKG; Complete Time: 13:48 01/27 13:47 Order name: Cardiac monitoring; Complete Time: 14:25 01/27 13:47 Order name: EKG - Nurse/Tech; Complete Time: 14:25 01/27 13:47 Order name: IV Saline Lock; Complete Time: 14:25 01/27 13:47 Order name: Labs collected and sent; Complete Time: 14:25 01/27 13:47 Order name: O2 Per Protocol; Complete Time: 14:25 cp 01/27 13:47 Order name: O2 Sat Monitoring; Complete Time: 14:25 cp 01/27 13:47 Order name: Zuniga; Complete Time: 16:07 cp 01/27 15:10 Order name: Urine Dipstick-Ancillary (obtain specimen); Complete Time: 16:07 em1 EC:00 Rate is 125 beats/min. Rhythm is irregular. [place] interval is normal at 128 msec. QRS cp interval is normal. QT interval is normal. Interpreted by me. Reviewed by me. Administered Medications: 14:48 Not Given (Physician Discretion): NS 0.9% 500 ml IV at bolus once cp 15:15 Drug: NS 0.9% 1000 ml Route: IV; Rate: 1 bolus; Site: right antecubital; kr2 16:15 Follow up: Response: No adverse reaction; IV Status: Completed infusion kr2 15:50 Drug: metroNIDAZOLE 500 mg Volume: 100 ml; Route: IVPB; Infused Over: 30 mins; Site: kr2 right antecubital; 17:30 Follow up: Response: No adverse reaction; IV Status: Completed infusion kr2 15:55 Drug: Magnesium Sulfate 1 grams Route: IVPB; Infused Over: 1 hrs; Site: right kr2 antecubital; 17:00 Follow up: Response: No adverse reaction; IV Status: Completed infusion kr2 17:13 Drug: vancoMYCIN 1 grams Route: IVPB; Infused Over: 2 hrs; Site: right antecubital; kr2 19:30 Follow up: Response: No adverse reaction; IV Status: Completed infusion kr2 17:13 Drug: NS 0.9% 1000 ml Route: IV; Rate: 1 bolus; Site: right antecubital; kr2 17:50 Follow up: Response: No adverse reaction; IV Status: Completed infusion kr2 17:57 Drug: NS 0.9% 1000 ml Route: IV; Rate: 100 ml/hr; Site: right antecubital; kr2 20:40 Follow up: Response: No adverse reaction; IV Status: Infusion continued upon admission kr2 18:09 Drug: Tylenol 1000 mg Route: PO; kr2 19:00 Follow up: Response: No adverse reaction; Pain is decreased kr2 Disposition: 21:00 Chart complete. 01/28 10:43 Co-signature as Attending Physician, Anthony Childress MD I agree with the assessment and kdr plan of care. Disposition: 01/27/18 16:47 Hospitalization ordered by Jonatan West for Inpatient Admission. Preliminary diagnosis are Other sepsis, Other slipping, tripping and stumbling and falls, Diarrhea, unspecified. - Bed requested for Intensive Care Unit. - Status is Inpatient Admission. kr2 - Condition is Stable. - Problem is new. - Symptoms have improved. UTI on Admission? No Signatures: Dispatcher [employer] EDTX Meredith Zhang RN Sarika Hartman RN RN dw Rittger, Kevin, MD MD kdr Martinez, Eric em1 Jd Pereira PA PA cp Reaves, Karey RN RN kr2 Corrections: (The following items were deleted from the chart) 01/27 14:55 14:19 CBC Smear Scan ordered. EDTX EDTX 16:02 14:34 Home Meds: clonidine HCl 0.3 mg oral tab three times a day; kr2 kr2 16:02 14:34 Home Meds: Cartia XT 240 mg Oral cp24; kr2 kr2 17:51 16:47 Hospitalization Ordered by Jonatan West MD for Inpatient Admission. Preliminary cp diagnosis is Other sepsis; Other slipping, tripping and stumbling and falls. Bed requested for Telemetry/MedSurg (Inpatient). Status is Inpatient Admission. Condition is Stable. Problem is new. Symptoms have improved. UTI on Admission? No. cp 18:24 17:51 01/27/2018 16:47 Hospitalization Ordered by Jonatan West MD for Inpatient dw Admission. Preliminary diagnosis is Other sepsis; Other slipping, tripping and stumbling and falls; Diarrhea, unspecified. Bed requested for Telemetry/MedSurg (Inpatient). Status is Inpatient Admission. Condition is Stable. Problem is new. Symptoms have improved. UTI on Admission? No. cp 18:50 18:24 01/27/2018 16:47 Hospitalization Ordered by Jonatan West MD for Inpatient cp Admission. Preliminary diagnosis is Other sepsis; Other slipping, tripping and stumbling and falls; Diarrhea, unspecified. Bed requested for Telemetry/MedSurg (Inpatient). Status is Inpatient Admission. Condition is Stable. Problem is new. Symptoms have improved. UTI on Admission? No. dw 19:24 18:50 01/27/2018 16:47 Hospitalization Ordered by Jonatan West MD for Inpatient kl Admission. Preliminary diagnosis is Other sepsis; Other slipping, tripping and stumbling and falls; Diarrhea, unspecified. Bed requested for Intensive Care Unit. Status is Inpatient Admission. Condition is Stable. Problem is new. Symptoms have improved. UTI on Admission? No. cp 20:45 19:24 01/27/2018 16:47 Hospitalization Ordered by Jonatan West MD for Inpatient kr2 Admission. Preliminary diagnosis is Other sepsis; Other slipping, tripping and stumbling and falls; Diarrhea, unspecified. Bed requested for Intensive Care Unit. Status is Inpatient Admission. Condition is Stable. Problem is new. Symptoms have improved. UTI on Admission? No. kl
[2018-01-27] MEDS ORDERED: VANCOMYCIN 1 GM/250 ML BAG ONE (17:08)
[2018-01-27 17:29] LABS: CKMB Creatine Kinase MB 5.7 ng/mL (0.3-3.6)
[2018-01-27] MEDS ORDERED: ACETAMINOPHEN 500 MG TAB ONE (18:03)
[2018-01-27] MEDS ORDERED: NA CHLORIDE 0.9% 500 ML IV PRN (18:03)
[2018-01-27] MEDS ORDERED: NA CHLORIDE 0.9% 1,000 ML IV ONE (18:09)
[2018-01-27 18:27] LABS: Arterial Blood Carboxyhemoglob 1.1 % (0-1.5); Blood Gas Oxyhemoglobin 92.3 % (94-97); Blood O2 Saturation 94.8 % (92-98.5)
[2018-01-27] MEDS ORDERED: VANCOMYCIN/NS 1 gm 1 GM/250 ML BAG IVPB SCH (19:00)
[2018-01-27] MEDS: TRAMADOL HCL 50 MG TAB PO PRN (21:19)
[2018-01-27] MEDS: NA CHLORIDE 0.9% 1,000 ML IV SCH (22:55)
[2018-01-28] MEDS: BENZONATATE 100 MG CAP PO PRN (00:09)
[2018-01-28] MEDS: METRONIDAZOLE 500mg IVPB 500 MG/100 ML BAG IV SCH ×3 (00:09→16:54)
[2018-01-28] MEDS: ALBUTEROL 2.5 MG/3 ML NEB SOL NEB PRN (01:10)
[2018-01-28] MEDS: IPRATROPIUM BROM 0.5MG/2.5ML NEB PRN (01:10)
[2018-01-28] MEDS: TRAMADOL HCL 50 MG TAB PO PRN ×2 (01:49→20:31)
--- NOTE | 2018-01-28 02:00 | HP ---
Date of Admission: 01/27/2018 Code Status: Full. Chief Complaint: Diarrhea, decreased level of responsiveness, found down. 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 The patient was admitted for endoscopic bronchoscopy, was found to have malignancy, and was start ed on treatment. The patient did develop some diarrhea following treatment and was diagnosed with No rovirus and was in the hospital and then subsequently went to rehab and has been out of rehab for les s than a week and now comes in to this facility for diarrhea and generalized weakness. The patient w as unable to be contacted and was found down on the floor by her sister, covered in feces. The patie nt does not remember how long she was down for. She did hit her head. The patient's symptoms are co nstant, moderate, progressively worsening. CT head, C-spine, and abdomen was done, did not show any acute abnormalities. Did show the right upper lobe mass representing neoplasm. The patient's workup revealed elevated lactate level and procalcitonin level. Her CK was 199. White blood cell count wa s normal, but she did have bandemia. The patient was found to be septic and was referred for admissi on. When seen in the ER, the patient was in moderate distress, ill-appearing, having active chills. Past Medical History: COPD, on oxygen; chronic respiratory failure; end-stage COPD; atrial fibrillat ion; rheumatoid arthritis, on DMARDs; immune suppressed status; depression with anxiety; essential hy pertension; chronic pain syndrome; morbid obesity; right upper lobe non-small cell carcinoma; gastroe sophageal reflux disease with hiatal hernia. Past Surgical History: Tendon repair, bilateral wrists; knee replacement, bilateral; multiple gangli on cyst removals; hysterectomy; appendectomy; cholecystectomy; tonsillectomy; knuckle removal in toes on right foot and hands; multiple bursectomy, excision. Allergies: MEPERIDINE, CEPHALEXIN, CIPROFLOXACIN, IODINE, ITRACONAZOLE, MORPHINE, PENICILLINS. Medications: List reviewed. Family History: Sister has hypertension, lung disease, rotoscoliosis, sleep apnea, hyperlipidemia. Brother has hypertension, diabetes, gout, hyperlipidemia. Mother has hypertension, cancer, and tumor . Father has heart disease, hypertension, lung disease, diabetes, lung cancer, and gout. Social History: No current smoking. No alcohol use or illicit drug use. The patient lives by gus . Review of Systems: An 11-point system reviewed, negative except as per HPI. Physical Examination: Vital Signs: Blood pressure 89/53, pulse 68, respirations 18, temperature 97.9, O2 96% on room air. General: Awake, alert, oriented x3, in some moderate distress, ill-appearing female. HEENT: Normocephalic, atraumatic. PERRLA. Dry mucous membranes. Oropharynx is clear. Poor dentit ion. Conjunctivae are anicteric. Neck: Supple. No JVD. Trachea midline. CV: S1, S2. Irregularly irregular. Peripheral pulses weak bilaterally. Respiratory: Moving air well bilaterally. No wheezing or stridor. Gastrointestinal: Abdomen is soft. No tenderness to palpation. Nondistended. Positive bowel sound s. Extremities: No clubbing, cyanosis. The patient does have peripheral edema. No calf tenderness. Neuro: Cranial nerves 2 through 12 intact grossly. No focal neurological deficit. Speech is normal . Laboratory Data: Sodium 137, potassium 3.5, chloride 98, CO2 27, BUN 21, creatinine is 1.4, glucose 103. Lactate 3.5. Repeat lactate is 1.8. Calcium 8.5, magnesium 1.6. CK 199, troponin 0.19. BNP 4723. Procalcitonin 7.64. PH 7.44, pCO2 39.9, pO2 79, bicarb 26. UA negative. WBC 7.6, H and H 10 .2/30.7, platelets 212, neutrophils 90%, 16% bands. Head CT, cervical spine, and chest, no acute int racranial abnormalities. Cervical fracture not visualized. No traumatic injury involving the chest, abdomen, or pelvis. 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 Mediastinal and hilar lymp hadenopathy likely represents neoplastic involvement, personally reviewed. Chest x-ray personally re viewed shows right upper lobe mass with mediastinal hilar lymphadenopathy present. Central venous ca theter tip in superior vena cava. Assessment And Plan: A 67-year-old female with: 1.Severe sepsis. The patient is hypotensive, has bandemia, elevated lactate, is immunosuppressed du e to chemotherapy and rheumatoid arthritis, on DMARDs. The patient will be started on IV antibiotics . Source of infection is likely GI. We will obtain grullon cultures including blood cultures, urine cul tures, stool cultures, and sputum cultures. We will initiate sepsis bundle, bolus with 1 L normal sa line. 2.Status post fall secondary to hypotension. The patient did have head trauma, however, CT scan is negative for any acute intracranial bleed. 3.Atrial fibrillation with rapid ventricular response. We will continue with rate control. 4.Acute kidney injury, likely related to sepsis. 5.Elevated troponin level related to sepsis, doubt ACS. 6.Normocytic normochromic anemia, likely anemia of chronic disease. We will monitor H and H. 7.End-stage chronic obstructive pulmonary disease with chronic respiratory failure. Provide oxygen as needed and albuterol breathing treatments. 8.Recently diagnosed right upper lobe non-small cell cancer. The patient is on chemotherapy and rad iation therapy. Follows at [facility]. 9.Rheumatoid arthritis. DMARDs on hold. 10.Gastroesophageal reflux disease without esophagitis. 11.Depression with anxiety. 12.Chronic pain syndrome. 13.Essential hypertension, currently hypotensive. We will hold all blood pressure medications. 14.Obesity. Plan: Admit the patient to Med-Surg, place as inpatient. We will admit to ICU for close monitoring. Overall prognosis is poor. The patient remains full code. Sister at the bedside. They want resus citation initiated, however, does not wish to be on the ventilator long-term. The patient did not wi sh to go to [facility] at this time for continuity of care as recommended. They wish to stay at this facility. We will place as inpatient. Length of stay greater than 2 midnights. Consult Cardiology, Infectious Disease. We will monitor I's and O's closely with continuous pulse ox and sepsis bundle. Overall prognosis remains very poor. Placed on isolation. Check rotavirus and stool cultures. SA/MODL Voice ID: [id number]
[2018-01-28] MEDS ORDERED: FENTANYL CITR 100 MCG/2 ML IV ONE ×2 (03:05→06:17)
--- NOTE | 2018-01-28 04:30 | P.INFCA ---
Sepsis Focused Assessment - Sepsis Screen Result Severe Sepsis: Positive - Evaluation Current stage of sepsis: Severe sepsis - Vital Signs Reviewed: Yes Heart rate: 125 Blood Pressure: 186/97 Respiratory Rate: 28 O2 Sat by Pulse Oximetry: 93 - Examination Heart: Irregular rhythm, Tachycardia, Irregularly irregular Lungs: Crackles, Decreased breath sounds Peripheral pulses: 1+ Faint Peripheral pulse location: Popliteal Capillary refill: <2 Seconds Skin examination: [place], Knee caps clear, Knee caps mottled
[2018-01-28] MEDS ORDERED: VANCOMYCIN 1 GM/250 ML BAG ONE (04:50)
[2018-01-28] MEDS ORDERED: VANCOMYCIN/NS 1 gm 1 GM/250 ML BAG IVPB SCH (05:00)
[2018-01-28] MEDS: NA CHLORIDE 0.9% 1,000 ML IV SCH ×3 (05:00→16:54)
--- NOTE | 2018-01-28 06:08 | EKG ---
Test Date: 2018-01-27 Test Time: 13:50:23 Budget Clerk: HB MEASUREMENT RESULTS: Intervals: Rate: 125 VA: 128 QRSD: 78 QT: 356 QTc: 513 [place]: P: 56 VA: 128 QRS: 21 T: 70 INTERPRETIVE STATEMENTS: Sinus tachycardia with occasional premature ventricular complexes Otherwise normal ECG Compared to ECG 12/02/2017 07:34:07 Ventricular premature complex(es) now present Atrial fibrillation no longer present ST (T wave) deviation no longer present Possible ischemia no longer present Electronically Signed On 01-28-18 06:07:34 [employer] by Jackson Cooper
[2018-01-28] MEDS: PANTOPRAZOLE 40MG TABLET PO SCH (06:09)
[2018-01-28 06:33] LABS: Absolute Lymphocytes (CBC) 0.2 K/uL (0.7-4.9); Absolute Monocytes 0.1 K/uL (0.1-1.3); Absolute Neutrophil 3.8 K/uL (1.8-8.0); Basophils % 0.5 % (0-1.3); Eosinophils % 0.2 % (0-4.4); Lymphocytes % 3.8 % (15.3-44.8); MCH 27.2 pg (27.0-35.0); MCV 84.3 fL (80-100); MPV 8.2 fL (7.6-11.3); Monocytes % 3.2 % (3.3-12.3)
[2018-01-28] MEDS ORDERED: METOPROLOL TARTRATE 5 MG/5 ML INJ IV STA (06:35)
[2018-01-28 06:39] LABS: BUN Blood Urea Nitrogen 16 mg/dL (7-18); Bicarbonate 25 mmol/L (21-32); Glucose Level 89 mg/dL (74-106); Sodium Level 140 mmol/L (136-145)
[2018-01-28] MEDS: DILTIAZEM HCL 120 MG SR CAP PO SCH (06:53)
[2018-01-28] MEDS: DULOXETINE 30 MG CAP PO SCH (08:41)
[2018-01-28] MEDS: predniSONE 20 MG TAB PO SCH (08:41)
[2018-01-28] MEDS ORDERED: POTASSIUM CL SA 10 MEQ TAB PO ONE (09:00)
[2018-01-28] MEDS ORDERED: APIXABAN 2.5 MG TABLET PO SCH (09:00)
[2018-01-28] MEDS ORDERED: HOME MED 1 EA UNK (Omeprazole [Prilosec] 40 MG) PO SCH (09:00)
[2018-01-28] MEDS ORDERED: VANCOMYCIN 1.5 GM in NA CHLORIDE 0.9% 500 ML IVPB ONE (09:00)
[2018-01-28 09:01] LABS: Magnesium 1.6 mg/dL (1.8-2.4)
[2018-01-28] MEDS: APIXABAN 5 MG TABLET PO SCH ×2 (10:25→20:31)
[2018-01-28] MEDS: GUAIFENESIN 600 MG SA TAB PO SCH ×2 (10:25→20:31)
[2018-01-28] MEDS: DOFETILIDE 500 MCG PO SCH ×2 (11:18→20:31)
--- NOTE | 2018-01-28 16:50 | CON ---
History Of Present Illness: Mrs. Santacruz came to the hospital with diarrhea. Diarrhea was so bad selvin t she actually fell, may have been unconscious for a while. Her health has been extremely complicate d. She has had atrial fibrillation before. Has not tolerated most of the antiarrhythmic drugs. She has gone to see the electrophysiology doctors and I am not able to say right now without reviewing o rders and records from the office whether she has had an ablation. She is not on an antiarrhythmic d rug. She is on Eliquis 5 b.i.d. She has underlying rheumatoid arthritis. She has underlying lung c ancer. It is stage III non-small cell. She is getting various treatments by the cancer team, I bev mcknight it is at [facility]. Since being here, she is on vancomycin and metronidazole, trying to treat some of the diarrhea with the presumption that it is Clostridium difficile. She had Clostridi um difficile colitis several weeks ago, was treated for it, and since it is often a recurrent or impo ssible to treat infection, it is assumed to be there until proven otherwise. She goes in and out of atrial fibrillation quite a bit and I think when they give her metoprolol 2.5 IV that usually helps q uite a bit. We can certainly continue to do that. We can also try an antiarrhythmic drug that would be appropriate here. Amiodarone has so many complications that would not be very likely to try it, but we could try to put her back on Betapace and see if that helps. I will check her allergy list ca refully to see and she would not be a candidate for it and can add flecainide, Rythmol, or Multaq. JAVON/KSENIA Voice ID: [id number] Report ID: [id number]
[2018-01-28] MEDS: SOTALOL HCL 80 MG TAB PO SCH (16:55)
--- NOTE | 2018-01-28 19:50 | PN ---
Date of Progress Note: 01/28/2018 History: The patient is seen and examined. Chart reviewed and case discussed with RN and Dr. Cooper . Patient still feeling very ill, had some delirium overnight, went into AFib with RVR, rate in the 170s to 190s. Patient was given IV Lopressor with improvement in her rate. Review of Systems: Negative except as above. Medications: List reviewed. Physical Examination: Vital Signs: Temperature 98.8, heart rate 125, blood pressure 186/97, respirations 28, O2 93% on 2 L via nasal cannula. General: Awake, alert, oriented x3, in some moderate distress. Ill-appearing female, older than sta scott age. CV: S1, S2, irregularly irregular. Peripheral pulses present. Respiratory: Moving air well bilaterally. No wheezing. Gastrointestinal: Abdomen is soft. Mild tenderness to palpation. No distention. Positive bowel so unds. No guarding or rigidity. Extremities: No clubbing, cyanosis. Patient does have some edema. Neurologic: Nonfocal. Laboratory Data: Sodium 140, potassium 3, chloride 106, CO2 25, BUN 16, creatinine 0.6, glucose 89, calcium 7.9, magnesium 1.6. WBC 4.1, H and H 8.7 and 27, platelets 156, neutrophils 92%. Blood cult ures no growth to date. Stool cultures pending. Urine cultures, no growth to date as well. Assessment: A 67-year-old female with: 1.Severe sepsis. Patient's blood pressure now improved, still has bandemia likely secondary to GI s ource. Patient is immunocompromised secondary to her chemotherapy and DMARDs due to her rheumatoid a rthritis. Continue IV antibiotics. Follow up on cultures, negative to date. Continue with IV fluid hydration. We will adjust rate. 2.Gastroenteritis. Stool cultures pending. Patient recently had norovirus. We will follow up on s tool cultures and ova, parasites, consider ID consultation not available until Monday. 3.Status post fall secondary to hypotension. CT scan of the head negative for trauma including CT c ervical spine. We will continue with fall precautions and bedrest. 4.Atrial fibrillation with rapid ventricular response. Patient received Lopressor IV. We will rest art her Cardizem and antiarrhythmics. Appreciate Dr. Cooper' input. 5.Acute kidney injury, likely related to sepsis. Creatinine has now normalized. We will continue t o monitor. Continue IV fluids. 6.Hypomagnesemia. We will replace and monitor. 7.Hypokalemia. Also replace. We will continue to monitor. 8.Elevated troponin level secondary to sepsis. No acute coronary syndrome. Patient does report torsten e chest pain with atrial fibrillation with rapid ventricular response. No changes on EKG. Chest daniela n is improved after the atrial fibrillation has improved. 9.Normocytic normochromic anemia, likely anemia of chronic disease. Monitor H and H. 10.End-stage chronic obstructive pulmonary disease with chronic respiratory failure. We will contin ue supplemental oxygen, breathing treatments. 11.Right upper lobe non-small cell cancer of the lung, recent diagnosis, currently on chemotherapy a nd radiation therapy at [facility]. 12.Rheumatoid arthritis, generalized DMARDs on hold due to sepsis. 13.Gastroesophageal reflux disease without esophagitis. Continue PPI. 14.Depression with anxiety. 15.Chronic pain syndrome. We will continue with pain medications as tolerated. 16.Essential hypertension. We will resume home medications as appropriate, was hypotensive earlier due to sepsis. 17.Obesity, BMI 36. Counseled. Plan: Family requesting transfer to [facility] for continuity of care. Patient's oncologist, CT surg anitra, and organ installer, Dr. Morris are at [facility]. We will initiate transfer. Patient has a ve ry poor prognosis overall, in critical condition. We will continue ICU monitoring. Length of stay 48-72 hours depending on clinical response. SA/MODL Voice ID: [id number] Report ID: [id number]
--- NOTE | 2018-01-28 21:43 | EKG ---
Test Date: 2018-01-28 Test Time: 07:37:38 Engine Hostler: ALBER Valle MEASUREMENT RESULTS: Intervals: Rate: 144 MT: QRSD: 86 QT: 322 QTc: 498 Holliday: P: MT: QRS: 40 T: 173 INTERPRETIVE STATEMENTS: Atrial fibrillation with rapid ventricular response Nonspecific ST and T wave abnormality, probably digitalis effect Abnormal ECG Compared to ECG 01/27/2018 13:50:23 ST (T wave) deviation now present Sinus tachycardia no longer present Ventricular premature complex(es) no longer present Electronically Signed On 01-28-18 21:43:15 GRAVURE PRESS OPERATOR by Jackson Cooper
[2018-01-28] MEDS: VANCOMYCIN 1.75 GM in NA CHLORIDE 0.9% 500 ML IVPB SCH (23:14)
[2018-01-29] MEDS: FENTANYL CITR 100 MCG/2 ML IV PRN ×3 (00:45→20:26)
[2018-01-29] MEDS: TRAMADOL HCL 50 MG TAB PO PRN ×3 (02:43→17:40)
[2018-01-29] MEDS: METRONIDAZOLE 500mg IVPB 500 MG/100 ML BAG IV SCH ×3 (02:44→17:41)
[2018-01-29 04:50] LABS: Absolute Lymphocytes (CBC) 0.1 K/uL (0.7-4.9); Absolute Monocytes 0.2 K/uL (0.1-1.3); Absolute Neutrophil 3.8 K/uL (1.8-8.0); Basophils % 0.5 % (0-1.3); Eosinophils % 0.4 % (0-4.4); Hematocrit 25.2 % (36.0-45.0); Lymphocytes % 2.3 % (15.3-44.8); MCH 27.1 pg (27.0-35.0); MCV 84.7 fL (80-100); MPV 8.2 fL (7.6-11.3); Monocytes % 3.7 % (3.3-12.3); RBC Red Blood Cell Count 2.98 M/uL (3.86-4.86)
[2018-01-29 05:34] LABS: ALT/SGPT 23 U/L (12-78); AST/SGOT 21 U/L (15-37); Albumin 2.2 g/dL (3.4-5.0); Alkaline Phosphatase 65 U/L (45-117); BUN Blood Urea Nitrogen 8 mg/dL (7-18); Bicarbonate 29 mmol/L (21-32); Bilirubin Total 0.4 mg/dL (0.2-1.0); Creatine Phosphokinase 51 U/L (26-192); Glucose Level 86 mg/dL (74-106); Potassium 3.5 mmol/L (3.5-5.1); Protein, Total 5.6 g/dL (6.4-8.2); Sodium Level 139 mmol/L (136-145)
[2018-01-29 05:36] LABS: Magnesium 1.4 mg/dL (1.8-2.4)
[2018-01-29] MEDS: SOTALOL HCL 80 MG TAB PO SCH ×2 (05:38→17:40)
[2018-01-29] MEDS ORDERED: Magnesium Sulfate 2gm IVPB 2 G/50 ML BAG IV ONE ×2 (05:53→13:29)
[2018-01-29] MEDS: NA CHLORIDE 0.9% 1,000 ML IV SCH (06:27)
[2018-01-29] MEDS: PANTOPRAZOLE 40MG TABLET PO SCH (07:16)
[2018-01-29] MEDS: BENZONATATE 100 MG CAP PO PRN (07:16)
[2018-01-29] MEDS: ALBUTEROL 2.5 MG/3 ML NEB SOL NEB PRN ×2 (07:44→19:30)
[2018-01-29] MEDS: IPRATROPIUM BROM 0.5MG/2.5ML NEB PRN (07:44)
[2018-01-29] MEDS ORDERED: FUROSEMIDE 20 MG/ 2ML VIAL IV ONE (08:28)
--- NOTE | 2018-01-29 08:35 | P.CNS ---
Date of Consult: 01/29/18 Reason for Consult: Respiratory distress Chief Complaint: Shortness of breath History of Present Illness: Patient is 61 years of age well known to me and to the hospital complaining of edema and shortness of breath has a history of severe COPD and recently patient has had diarrhea heated with chemotherapy recently diagnosed lung cancer developed respiratory distress with lower extremity edema Allergies meperidine HCl [From Demerol] Allergy (Intermediate, Verified 10/31/17 22:53) Itching/Hives/Rash cephalexin [From Keflex] Allergy (Verified 10/31/17 22:55) Itching/Hives/Rash ciprofloxacin Allergy (Verified 11/01/17 19:32) Hives/Rash iodine Allergy (Verified 12/03/17 11:14) Itching itraconazole [From Sporanox] Allergy (Verified 10/31/17 22:57) Hives/Rash morphine Allergy (Verified 10/31/17 22:56) Itching/Hives/Rash Penicillins Allergy (Verified 10/31/17 22:57) Itching/Hives/Rash Home Medications: Amlodipine Besylate 10 mg PO DAILY 01/27/18 Antacid/Diphen/Lido 1:1:1 10 ml PO ACHS PRN 01/27/18 Apixaban [Eliquis *] 5 mg PO BID 01/27/18 Benzonatate 200 mg PO TID PRN 01/27/18 Clonidine HCl [Catapres] 0.1 mg PO TID PRN 01/27/18 Diltiazem HCl [Diltiazem 24Hr Cd] 120 mg PO DAILY 01/27/18 Dofetilide 500 mcg PO BID 01/27/18 Duloxetine [Cymbalta *] 60 mg PO DAILY 01/27/18 Guaifenesin [Mucinex] 600 mg PO BID 01/27/18 Hydralazine [Apresoline*] 50 mg PO BID 01/27/18 Leflunomide 20 mg PO DAILY 01/27/18 Lisinopril 20 mg PO BID 01/27/18 Magnesium Oxide [Mag-Oxide] 400 mg PO DAILY 01/27/18 Mometasone Furoate [Nasonex] 2 spray IH DAILY 01/27/18 Omeprazole [Prilosec] 40 mg PO DAILY 01/27/18 Potassium Chloride 20 meq PO BID 01/27/18 Pregabalin [Lyrica*] 25 mg PO DAILY 01/27/18 Sulfasalazine [Azulfidine] 1,000 mg PO BID 01/27/18 predniSONE [Prednisone] 10 mg PO DAILY 01/27/18 - Past Medical/Surgical History Diabetic: No -: Rheumatoid Arthritis -: Interstitial Lung Disease -: Obstructive sleep apnea -: [place] -: Osteopenia -: Hyperlipidemia -: COPD, end-stage, oxygen/steroid dependent -: Atrial fibrillation on chronic anti coagulation -: GERD with hiatal hernia -: Depression -: Recently diagnosed lung cancer -: depression -: Tonsilectomy -: Appendectomy, Kelle -: Hysterectomy -: Multiple ganglion cyst removal -: Knee Replacement rohini -: Tendon repair bilateral wrist -: Knuckle removal in toes on R foot/hands -: Multiple bursectomy excision Psychosocial/ Personal History: Patient is a . - Family History Sister Medical History: Hypertension, Lung disease, Other (see notes) Notes: rotoscoliasis, sleep apnea, hyperlipidemia Brother Medical History: Hypertension, Diabetes, Other (see notes) Notes: gout, hyperlipidemia Mother Medical History: Hypertension, Cancer Notes: klatskin tumor Father Medical History: Heart disease, Hypertension, Lung disease, Diabetes, Cancer, Other (see notes) Notes: lung cancer, gout - Social History Smoking Status: Unknown if ever smoked Alcohol use: No CD- Drugs: No Caffeine use: Yes Place of Residence: Home Review of Systems is unable to be obtained Physical Examination Temp Pulse Resp BP Pulse Ox 98.1 F 99 H 27 H 177/87 H 97 01/29/18 04:00 01/29/18 06:00 01/29/18 06:00 01/29/18 06:00 01/29/18 06:00 General: Moderate distress HEENT: Atraumatic, Other Respiratory: Expiratory wheezes Cardiovascular: No edema, Normal S1 S2 - Problems (1) Acute respiratory distress Current Visit: No Status: Acute Plan: Patient is 67 years of age recently diagnosed lung cancer history of severe COPD admitted with respiratory distress lower extremity edema she is currently unresponsive on a BiPAP having some shivering spells there is nor lower extremity edema blood pressure is elevated tolerating BiPAP patient's pro calcitonin significantly elevated renal function has improved mildly anemic normal white count blood gases on 01/27 was satisfactory history of C. difficile chest x-ray shows a right upper lobe lung mass so far cultures are negative I have added meropenem stool studies are pending patient is at times alert cooperative wants to be full code
[2018-01-29] MEDS ORDERED: Meropenem 1000 MG/VIAL IV SCH (09:00)
[2018-01-29] MEDS: DOFETILIDE 500 MCG PO SCH ×2 (09:35→20:27)
[2018-01-29] MEDS: DULOXETINE 30 MG CAP PO SCH (09:36)
[2018-01-29] MEDS: predniSONE 20 MG TAB PO SCH (09:36)
[2018-01-29] MEDS: APIXABAN 5 MG TABLET PO SCH ×2 (09:38→20:27)
[2018-01-29] MEDS: GUAIFENESIN 600 MG SA TAB PO SCH ×2 (09:38→20:27)
[2018-01-29] MEDS: DILTIAZEM HCL 120 MG SR CAP PO SCH (09:38)
[2018-01-29] MEDS: VANCOMYCIN 1.75 GM in NA CHLORIDE 0.9% 500 ML IVPB SCH ×2 (11:18→21:34)
[2018-01-29] MEDS: Meropenem 1,000 MG in NA CHLORIDE 0.9% 100 ML IV SCH ×2 (11:19→17:41)
--- NOTE | 2018-01-29 13:15 | P.PN ---
Subjective Date of Service: 01/29/18 Chief Complaint: Shortness of breath Patient seen and examined at bedside. Number bedside. Case discussed with nursing staff. No acute events overnight and the patient states she does not feel good this morning though unable to tell me what is bothering her. Per daughter at bedside, so she is having pain on the left sided chest wall/upper abdomen area though denies any chest. Denies any palpitations at this time, dizziness, vision changes or any speech changes. Review of Systems As noted above Physical Examination - Vital Signs Temperature: 98.1 F Blood Pressure: 164/98 Pulse: 106 Respirations: 22 Pulse Ox (%): 98 - Physical Exam General: Alert, Oriented x3, Mild distress HEENT: Atraumatic, PERRLA, EOMI Neck: Supple, JVD not distended Respiratory: Clear to auscultation bilaterally, Normal air movement Cardiovascular: Regular rate/rhythm, Normal S1 S2 Gastrointestinal: Normal bowel sounds, No tenderness Musculoskeletal: No tenderness Integumentary: No rashes Neurological: Normal speech, Normal tone, Normal affect - Studies Microbiology Data (last 24 hrs): 01/27/18 15:10 Stool Culture & Sensitivity - Final 01/27/18 15:10 Catheterized Urine [place] Count - Final <10,000 CFU/ML. 01/27/18 15:10 Catheterized Urine - Final Assessment And Plan - Plan A 67-year-old female with: - Severe sepsis: Patient's blood pressure now improved, still has bandemia likely secondary to GI source. Patient is immunocompromised secondary to her chemotherapy and DMARDs due to her rheumatoid arthritis. Continue IV antibiotics. Follow up on cultures, negative to date. Continue with IV fluid hydration. We will adjust rate. - Gastroenteritis: Stool cultures negative so far for C. diff, noro virus, Salmonella Shigella. Ova and parasite testing still pending. Patient recently had norovirus. May consider ID consultation not available until Monday. - Status post fall secondary to hypotension: CT scan of the head negative for trauma including CT cervical spine. We will continue with fall precautions and bedrest. - Atrial fibrillation with rapid ventricular response: Now sinus rhythm. Patient received Lopressor IV. We will continue her Cardizem and antiarrhythmics. Appreciate Dr. Cooper' input. - Acute kidney injury, likely related to sepsis: Creatinine has now normalized. We will continue to monitor. Continue IV fluids. - Hypomagnesemia. Resolved. Will continue to monitor. - Hypokalemia. Resolved. We will continue to monitor. - Elevated troponin level secondary to sepsis. No acute coronary syndrome. Patient does report some chest pain with atrial fibrillation with rapid ventricular response. No changes on EKG. Chest pain is improved after the atrial fibrillation has improved. Continue to monitor. If new symptoms of chest pain and occur, will recheck cardiac enzymes and EKG at that time. - Normocytic normochromic anemia, likely anemia of chronic disease. No evidence of overt bleeding at this time. Monitor H and H. - End-stage chronic obstructive pulmonary disease with chronic respiratory failure. We will continue supplemental oxygen, breathing treatments. Pulmonology consulted, recommendations appreciated. - Right upper lobe non-small cell cancer of the lung, recent diagnosis, currently on chemotherapy and radiation therapy at [facility]. - Rheumatoid arthritis, generalized DMARDs on hold due to sepsis. - Gastroesophageal reflux disease without esophagitis. Continue PPI. - Depression with anxiety: Stable - Chronic pain syndrome. We will continue with pain medications as tolerated. - Essential hypertension. We will continue home medications as appropriate - Obesity, BMI 36: Counseled. DVT prophylaxis: Lovenox Diet: Heart healthy. Disposition: Transferred to [facility] initiated, pending bed. Family requesting transfer to [facility] for continuity of care. Patient's oncologist, CT surgeon, and production broacher, Dr. Morris are at [facility]. We will initiate transfer. Patient has a very poor prognosis overall, in critical condition. We will continue ICU monitoring Discharge Plan: Transfer (To [facility]. Pending bed) Critical Care: Yes Time Spent Managing PTS Care (In Minutes): 55
[2018-01-29] MEDS: IPRATROPIUM BROM 0.5MG/2.5ML NEB SCH ×2 (13:35→19:30)
[2018-01-29] MEDS: ARFORMOTEROL TARTRATE 15 MCG/2 ML VIAL.NEB NEB SCH ×2 (13:35→19:30)
--- NOTE | 2018-01-29 14:09 | PN ---
Ms. Santacruz is requesting transfer to [facility] so that her lung cancer specialist can be involved in her care. She is in the sinus rhythm now and seems to be doing a little bit better. CHRISTOPHER Voice ID: [id number] Report ID: [id number]
--- NOTE | 2018-01-29 20:09 | CON ---
History Of Present Illness: There is a 67-year-old female. I was consulted for diarrhea. The patie nt has significant history of COPD, lung cancer, coming in with diarrhea, which has been going on for last few days. The patient has been admitted to the hospital multiple times. She also has irritabl e bowel syndrome, recent history of chemotherapy for lung cancer. Stool for C. diff is negative. Le ukocyte is positive. The patient is not able to give much history as she is short of breath and on 3 L nasal cannula. Most of the history was obtained through staff and family member by the bedside. Past Medical History: COPD, oxygen-dependent, chronic respiratory failure, atrial fibrillation, rheu matoid arthritis, immune suppressed status, depression with anxiety, hypertension, chronic pain syndr ome, morbid obesity, right upper lobe non-small cell carcinoma, gastroesophageal reflux disease with hiatal hernia, irritable bowel syndrome. Past Surgical History: Tendon repair, bilateral wrist; knee replacement, bilateral; multiple ganglio n cyst removal; hysterectomy; appendectomy; cholecystectomy; tonsillectomy; knuckle removal in the to es on right foot and hand, multiple; bursectomy. Allergies: MEPERIDINE, CEPHALEXIN, QUINOLONES, IODINE, ITRACONAZOLE, MORPHINE, AND PENICILLINS. Current Medications: Meropenem, metronidazole, and vancomycin. See MARs for other medication. Review of Systems: A 10-point review was performed. Physical Examination: General: This is a 67-year-old female, lying in bed, not in any cardiac distress, has respiratory sl ightly short of breath. Vital Signs: Temperature 98, pulse 106, respirations 22, blood pressure 164/98. HEENT: Unremarkable. Neck: Supple. Lungs: Basal crackles. Heart: S1, S2. Regular. Abdomen: Soft, nontender. Bowel sounds present, obese. Extremities: No edema. Mild erythematous changes noted on both buttocks. No open wounds. Laboratory Data: Shows WBC 4.1, hemoglobin 8.1, platelets 131. Chemistry shows sodium 139, potassiu m 3.5, chloride 106, bicarb 29, BUN 8, creatinine 0.4, glucose is 86. Assessment And Plan: Diarrhea, possibly secondary to irritable bowel syndrome versus immune suppress ion causing Clostridium difficile even though the patient has Clostridium difficile negative. Once s tabilized, recommend to have colonoscopy for further investigation. Continue empiric antibiotic and supportive care. Pancytopenia. Prognosis is guarded. We will follow the patient as needed. Thank you Dr. West for consult. KEYSHA/KSENIA Voice ID: [id number] Report ID: [id number]
[2018-01-29] MEDS ORDERED: MAGNESIUM SULFATE 1 gm IVPB 1 GM/100 ML BAG IV ONE (21:13)
[2018-01-30] MEDS: METRONIDAZOLE 500mg IVPB 500 MG/100 ML BAG IV SCH ×3 (00:27→17:00)
[2018-01-30] MEDS: Meropenem 1,000 MG in NA CHLORIDE 0.9% 100 ML IV SCH ×3 (01:04→17:00)
[2018-01-30] MEDS: IPRATROPIUM BROM 0.5MG/2.5ML NEB SCH ×4 (01:24→19:30)
[2018-01-30] MEDS: TRAMADOL HCL 50 MG TAB PO PRN (04:06)
[2018-01-30] MEDS: BENZONATATE 100 MG CAP PO PRN (04:06)
[2018-01-30] MEDS: SOTALOL HCL 80 MG TAB PO SCH ×2 (05:05→17:15)
[2018-01-30] MEDS: FENTANYL CITR 100 MCG/2 ML IV PRN (05:06)
[2018-01-30 05:25] LABS: Absolute Lymphocytes (CBC) 0.2 K/uL (0.7-4.9); Absolute Monocytes 0.3 K/uL (0.1-1.3); Absolute Neutrophil 3.4 K/uL (1.8-8.0); Basophils % 0.5 % (0-1.3); Eosinophils % 0.4 % (0-4.4); Hematocrit 26.5 % (36.0-45.0); Lymphocytes % 5.4 % (15.3-44.8); MCH 27.8 pg (27.0-35.0); MCV 82.8 fL (80-100); MPV 8.8 fL (7.6-11.3); Monocytes % 8.2 % (3.3-12.3); RBC Red Blood Cell Count 3.21 M/uL (3.86-4.86)
[2018-01-30 05:36] LABS: BUN Blood Urea Nitrogen 8 mg/dL (7-18); Bicarbonate 28 mmol/L (21-32); Glucose Level 110 mg/dL (74-106); Magnesium 1.7 mg/dL (1.8-2.4); Potassium 3.3 mmol/L (3.5-5.1); Sodium Level 140 mmol/L (136-145)
[2018-01-30 05:53] LABS: Platelet Estimate ADEQ; Urine White Blood Cell Casts OK
[2018-01-30 05:54] LABS: Anisocytosis 1+; Blood Morphology Comment NOTED (NOT SEEN); Ovalocytes 1+; Platelets, Giant FEW
[2018-01-30] MEDS ORDERED: MAGNESIUM SULFATE 1 gm IVPB 1 GM/100 ML BAG IV ONE (06:00)
[2018-01-30] MEDS ORDERED: POTASSIUM CL SA 10 MEQ TAB PO ONE ×2 (06:01→14:37)
[2018-01-30] MEDS: ARFORMOTEROL TARTRATE 15 MCG/2 ML VIAL.NEB NEB SCH ×2 (08:00→19:30)
[2018-01-30] MEDS: PANTOPRAZOLE 40MG TABLET PO SCH (08:14)
[2018-01-30] MEDS: DULOXETINE 30 MG CAP PO SCH (08:14)
[2018-01-30] MEDS: predniSONE 20 MG TAB PO SCH (08:14)
[2018-01-30] MEDS: DILTIAZEM HCL 120 MG SR CAP PO SCH (08:15)
[2018-01-30] MEDS: DOFETILIDE 500 MCG PO SCH ×2 (08:15→20:17)
[2018-01-30] MEDS: VANCOMYCIN 1.75 GM in NA CHLORIDE 0.9% 500 ML IVPB SCH (08:15)
[2018-01-30] MEDS: HYDROCODONE/APAP 5/325 MG TAB PO PRN ×3 (09:40→20:16)
[2018-01-30] MEDS: LIDOCAINE 5% PATCH TOP SCH (09:41)
[2018-01-30] MEDS: APIXABAN 5 MG TABLET PO SCH ×2 (10:06→20:23)
[2018-01-30] MEDS: GUAIFENESIN 600 MG SA TAB PO SCH ×2 (10:06→20:16)
--- NOTE | 2018-01-30 13:16 | PN ---
Date of Progress Note: 01/30/2018 Mrs. Santacruz was admitted on 01/27/2018, was seen by Dr. Cooper for atrial fibrillation. The patient has tried multiple antiarrhythmic in the past and has failed. She is on Eliquis for that. She was a ctually admitted for diarrhea and fall, and was found to be septic. She has lung cancer, on chemothe rapy presently. She has actually had an ablation for the atrial fibrillation before. She is now on Eliquis and Cardizem, remained in atrial fibrillation, rate controlled. No cardiac symptoms. The sravan gayle and family have requested a lateral transfer to [facility] for further care for her paulo g cancer. She is, as stated earlier, in atrial fibrillation with a ventricular response of 80 and david s had some sinus rhythm episodes throughout the night. We will continue her medical regimen right no w. Her ablation was in August of this year and she may need another ablation eventually. ABEL/KSENIA Voice ID: [id number] Report ID: [id number]
--- NOTE | 2018-01-30 14:47 | P.PN ---
Subjective Date of Service: 01/30/18 Chief Complaint: Shortness of breath Patient seen and examined at bedside. No family at bedside. Case discussed with nursing staff. No acute events overnight. Patient sitting up, trying CE. States she feels a little better though still feels "lousy". She is still having the pain on left-sided upper abdomen/below breasts. Denies any chest pain, palpitations at this time, dizziness, vision changes or any speech changes. Review of Systems As noted Physical Examination - Vital Signs Temperature: 97.4 F Blood Pressure: 148/76 Pulse: 70 Respirations: 23 Pulse Ox (%): 95 - Physical Exam General: Alert, Mild distress (Secondary to pain under left breast) HEENT: Atraumatic, PERRLA, EOMI Neck: Supple, JVD not distended Respiratory: Clear to auscultation bilaterally, Normal air movement Cardiovascular: Irregular heart rate/rhythm (irregularly irregular) Gastrointestinal: Normal bowel sounds, No tenderness Musculoskeletal: No tenderness Integumentary: No rashes Neurological: Normal speech, Normal tone, Normal affect Lymphatics: No axilla or inguinal lymphadenopathy - Studies Microbiology Data (last 24 hrs): 01/27/18 15:10 Stool Culture & Sensitivity - Final Assessment And Plan - Plan A 67-year-old female with: - Severe sepsis: Improving. Patient's blood pressure now improved, still has bandemia likely secondary to GI source. Patient is immunocompromised secondary to her chemotherapy (ANC in normal range) and DMARDs due to her rheumatoid arthritis. Continue IV meropenem and Flagyl (for parasite coverage). Follow up on cultures, negative to date. Continue with IV fluid hydration. We will adjust rate. - Gastroenteritis: Stool cultures negative so far for C. diff, noro virus, Salmonella Shigella. Ova and parasite testing still pending. Patient recently had norovirus. - Status post fall secondary to hypotension: CT scan of the head negative for trauma including CT cervical spine. We will continue with fall precautions and bedrest. Lidocaine patch to the area under breast. - Atrial fibrillation with rapid ventricular response: Now sinus rhythm. Patient received Lopressor IV. We will continue her Cardizem and antiarrhythmics. Appreciate Cardiology input. - Acute kidney injury, likely related to sepsis: Creatinine has now normalized. We will continue to monitor. Continue IV fluids. - Hypomagnesemia. Resolved. Will continue to monitor. - Hypokalemia. Resolved. We will continue to monitor. - Elevated troponin level secondary to sepsis. No acute coronary syndrome. Patient does report some chest pain with atrial fibrillation with rapid ventricular response. No changes on EKG. Chest pain is improved after the atrial fibrillation has improved. Continue to monitor. If new symptoms of chest pain and occur, will recheck cardiac enzymes and EKG at that time. - Normocytic normochromic anemia, likely anemia of chronic disease. No evidence of overt bleeding at this time. Monitor H and H. - End-stage chronic obstructive pulmonary disease with chronic respiratory failure. We will continue supplemental oxygen, breathing treatments. Pulmonology consulted, recommendations appreciated. - Right upper lobe non-small cell cancer of the lung, recent diagnosis, currently on chemotherapy and radiation therapy at [facility]. - Rheumatoid arthritis, generalized DMARDs on hold due to sepsis. - Gastroesophageal reflux disease without esophagitis. Continue PPI. - Depression with anxiety: Stable - Chronic pain syndrome. We will continue with pain medications as tolerated. - Essential hypertension. We will continue home medications as appropriate - Obesity, BMI 36: Counseled. DVT prophylaxis: Lovenox Diet: Heart healthy. Disposition: [facility] without any bed. Will transfer patient to floor, continue medical management as patient status has improved and she reports feeling better. Monitor, pending symptomatic improvement. Still a poor overall prognosis. Critical Care: Yes Time Spent Managing PTS Care (In Minutes): 45
[2018-01-30] MEDS: JUVEN PACKET PO SCH (20:18)
[2018-01-30] MEDS ORDERED: VANCOMYCIN 1.5 GM in NA CHLORIDE 0.9% 500 ML IVPB SCH (21:00)
[2018-01-31] MEDS: METRONIDAZOLE 500mg IVPB 500 MG/100 ML BAG IV SCH ×2 (00:09→09:27)
[2018-01-31] MEDS: ALBUTEROL 2.5 MG/3 ML NEB SOL NEB PRN (01:50)
[2018-01-31] MEDS: IPRATROPIUM BROM 0.5MG/2.5ML NEB SCH ×4 (01:50→19:25)
[2018-01-31] MEDS: HYDROCODONE/APAP 5/325 MG TAB PO PRN ×3 (02:03→21:13)
[2018-01-31] MEDS: Meropenem 1,000 MG in NA CHLORIDE 0.9% 100 ML IV SCH ×2 (02:04→09:28)
[2018-01-31 05:57] LABS: ALT/SGPT 24 U/L (12-78); AST/SGOT 23 U/L (15-37); Albumin 2.3 g/dL (3.4-5.0); Alkaline Phosphatase 85 U/L (45-117); BUN Blood Urea Nitrogen 12 mg/dL (7-18); Bicarbonate 29 mmol/L (21-32); Bilirubin Direct 0.1 mg/dL (0-0.2); Bilirubin Total 0.4 mg/dL (0.2-1.0); Glucose Level 102 mg/dL (74-106); Potassium 3.4 mmol/L (3.5-5.1); Protein, Total 5.8 g/dL (6.4-8.2); Sodium Level 139 mmol/L (136-145)
[2018-01-31 05:58] LABS: Magnesium 1.4 mg/dL (1.8-2.4)
--- NOTE | 2018-01-31 06:00 | P.PN ---
Subjective Date of Service: 01/31/18 Chief Complaint: respiratory distress Patient woke up in respiratory distress; patient was hypoxic and in moderate distress. A CODE Yellow was called. After evaluation and clinical exam decision made to place her on bipap and diurese. Will get CXR and loading steroid dose Review of Systems 10-point ROS is otherwise unremarkable Physical Examination - Vital Signs Temperature: 97.4 F Blood Pressure: 131/99 Pulse: 96 Respirations: 16 Pulse Ox (%): 93 - Physical Exam General: Alert, In no apparent distress, Oriented x3, Moderate distress Neck: Supple, JVD not distended Respiratory: Crackles/rales, Expiratory wheezes Cardiovascular: Regular rate/rhythm, Normal S1 S2, Systolic murmur Gastrointestinal: Normal bowel sounds, Soft and benign, Non-distended, No tenderness Integumentary: Other (lower extremity edema) Neurological: Normal speech, Normal tone, Sensation intact, Cranial nerves 3-12 intact, Normal affect, Abnormal strength - Studies Medications List Reviewed: Yes Assessment & Plan - Problems (Diagnosis) (1) End stage COPD Onset Date: 01/30/18 Current Visit: Yes Status: Acute (2) Atrial fibrillation Onset Date: 01/30/18 Current Visit: Yes Status: Chronic Qualifiers: Atrial fibrillation type: chronic Qualified Code(s): I48.2 - Chronic atrial fibrillation (3) Acute respiratory distress Current Visit: No Status: Acute (4) History of atrial fibrillation Current Visit: No Status: Acute (5) Hypertension Onset Date: 10/21/16 Current Visit: No Status: Chronic Qualifiers: Hypertension type: essential hypertension (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 BiPAP 2. Diurese 3. IV steroids 4. Monitor labs 5. Nebs as needed 6. O2 to keep sats greater then 90% 7. Heplock IV 8. Zuniga cath; strict I's and O's - Advance Directives Does patient have a Living Will: No Does patient have a Durable POA for Healthcare: Yes Critical Care: Yes Time Spent Managing PTS Care (In Minutes): 50
[2018-01-31] MEDS ORDERED: POTASSIUM CL SA 10 MEQ TAB PO ONE (06:22)
[2018-01-31] MEDS: Magnesium Sulfate 2gm IVPB 2 G/50 ML BAG IV SCH ×2 (06:44→09:18)
[2018-01-31] MEDS: SOTALOL HCL 80 MG TAB PO SCH ×2 (06:45→17:20)
[2018-01-31] MEDS: PANTOPRAZOLE 40MG TABLET PO SCH (06:46)
[2018-01-31] MEDS: ARFORMOTEROL TARTRATE 15 MCG/2 ML VIAL.NEB NEB SCH ×2 (07:27→19:25)
[2018-01-31] MEDS: DULOXETINE 30 MG CAP PO SCH (09:25)
[2018-01-31] MEDS: predniSONE 20 MG TAB PO SCH (09:26)
[2018-01-31] MEDS: DILTIAZEM HCL 120 MG SR CAP PO SCH (09:26)
[2018-01-31] MEDS: GUAIFENESIN 600 MG SA TAB PO SCH ×2 (09:26→21:14)
[2018-01-31] MEDS: DOFETILIDE 500 MCG PO SCH ×2 (09:27→21:15)
[2018-01-31] MEDS: APIXABAN 5 MG TABLET PO SCH ×2 (09:28→21:14)
[2018-01-31] MEDS: LIDOCAINE 5% PATCH TOP SCH (09:28)
[2018-01-31] MEDS: JUVEN PACKET PO SCH ×2 (09:35→21:00)
[2018-01-31] MEDS: FUROSEMIDE 20 MG/ 2ML VIAL IV SCH ×2 (12:55→16:49)
--- NOTE | 2018-01-31 13:18 | P.PN ---
Subjective Date of Service: 01/31/18 Chief Complaint: respiratory distress Patient seen and examined at bedside. No family at bedside. Case discussed with nursing staff. Cardio cold overnight will, patient trouble breathing. She was given IV steroids, BiPAP was started. In the morning, patient was able to be weaned off BiPAP, comfortable on oxygen via nasal cannula. Started having more shortness of breath, BiPAP restarted. Satting well on BiPAP again. Looks comfortable with the BiPAP on. Denies any chest pain, palpitations dizziness vision changes or any speech changes at this time. Review of Systems As noted Physical Examination - Vital Signs Temperature: 97.4 F Blood Pressure: 191/81 Pulse: 87 Respirations: 20 Pulse Ox (%): 91 - Physical Exam General: Alert, In no apparent distress, Moderate distress HEENT: Atraumatic, PERRLA, EOMI Neck: Supple, JVD not distended Respiratory: Dull, Other (BiPAP on) Cardiovascular: Normal S1 S2, Irregular heart rate/rhythm Gastrointestinal: Normal bowel sounds, No tenderness Integumentary: No rashes Lymphatics: No axilla or inguinal lymphadenopathy Assessment And Plan - Plan A 67-year-old female with: - Acute respiratory distress on chronic history failure, end-stage chronic obstructive pulmonary disease: Currently on BiPAP, continues needed. Will try to wean. Pulmonology Dr. dale consulted. Recommendations appreciated. - Severe sepsis: Improving. Patient's blood pressure now improved, still has bandemia likely secondary to GI source. Patient is immunocompromised secondary to her chemotherapy (ANC in normal range) and DMARDs due to her rheumatoid arthritis. Continue IV meropenem and Flagyl (for parasite coverage). Follow up on cultures, negative to date. Continue with IV fluid hydration. We will adjust rate. - Gastroenteritis: Stool cultures negative so far for C. diff, noro virus, Salmonella Shigella. Ova and parasite testing still pending. Patient recently had norovirus. - Status post fall secondary to hypotension: CT scan of the head negative for trauma including CT cervical spine. We will continue with fall precautions and bedrest. Lidocaine patch to the area under breast. - Atrial fibrillation with rapid ventricular response: Now sinus rhythm. Patient received Lopressor IV. We will continue her Cardizem and antiarrhythmics. Appreciate Cardiology input. - Acute kidney injury, likely related to sepsis: Creatinine has now normalized. We will continue to monitor. Continue IV fluids. - Hypomagnesemia. Resolved. Will continue to monitor. - Hypokalemia. Resolved. We will continue to monitor. - Elevated troponin level secondary to sepsis. No acute coronary syndrome. Patient does report some chest pain with atrial fibrillation with rapid ventricular response. No changes on EKG. Chest pain is improved after the atrial fibrillation has improved. Continue to monitor. If new symptoms of chest pain and occur, will recheck cardiac enzymes and EKG at that time. - Normocytic normochromic anemia, likely anemia of chronic disease. No evidence of overt bleeding at this time. Monitor H and H. - Right upper lobe non-small cell cancer of the lung, recent diagnosis, currently on chemotherapy and radiation therapy at [facility]. - Rheumatoid arthritis, generalized DMARDs on hold due to sepsis. - Gastroesophageal reflux disease without esophagitis. Continue PPI. - Depression with anxiety: Stable - Chronic pain syndrome. We will continue with pain medications as tolerated. - Essential hypertension. We will continue home medications as appropriate - Obesity, BMI 36: Counseled. DVT prophylaxis: Lovenox Diet: Heart healthy. Disposition: [facility] without any bed, still pending transfer. Will transfer patient to floor, continue medical management. Poor/guarded overall prognosis. Monitor, pending symptomatic improvement.
[2018-01-31 13:56] LABS: Arterial Blood Carboxyhemoglob 1.3 % (0-1.5); Blood Gas Oxyhemoglobin 86.6 % (94-97); Blood O2 Saturation 88.3 % (92-98.5)
[2018-01-31 14:19] LABS: Potassium 3.8 mmol/L (3.5-5.1)
[2018-01-31 14:23] LABS: Magnesium 1.4 mg/dL (1.8-2.4)
--- NOTE | 2018-01-31 14:24 | RAD REPORT ---
EXAM DESCRIPTION: RAD - Chest Single View - 01/31/2018 2:10 pm CLINICAL HISTORY: Respiratory failure COMPARISON: January 27 TECHNIQUE: AP portable chest image was obtained 1357 hours . FINDINGS: Lung volumes are low. Left-sided Port-A-Cath remains in place. Right upper lung field opacification has progressed. There is convex contour to the fissure indicatin g at least some component of atelectasis. Patient could have postobstructive pneumonia or alveolar ed mario. Right apex pleural fluid could be present as well. Trachea remains midline. Heart size is upper normal and stable. Hazy right base opacification is present. No acute left lung field finding suspect ed. No pneumothorax. IMPRESSION: Progression of the right upper lung field opacification. There is a component of atelect asis present. Progressive opacification could be from postobstructive pneumonia or edema. Pleural fluid component i n the right apex suspected as well. Minimal right lung base infiltrate versus portable technique artifact. The increased opacification is not substantially different from January 27.
[2018-01-31] MEDS ORDERED: Magnesium Sulfate 2gm IVPB 2 G/50 ML BAG IV ONE ×2 (14:46→23:23)
[2018-01-31] MEDS: TRAMADOL HCL 50 MG TAB PO PRN (15:25)
--- NOTE | 2018-01-31 19:04 | PN ---
Subjective: The patient lying in bed, continued to have shortness of breath. Denies any headache, n ausea, vomiting, chest pain, abdominal pain, constipation, or diarrhea. Objective: Vital Signs: Temperature 97, pulse 87, respiration 20, blood pressure 191/81. Lungs: Basal crackles. Heart: S1, S2. Regular. Abdomen: Soft, nontender. Bowel sounds positive. Extremities: No edema. Laboratory Data: Shows WBC 4, hemoglobin 8.9, platelets 139. Chemistry shows sodium 139, potassium 3.4, chloride 103, bicarb 29, BUN 12, creatinine 0.5, glucose 102. Microdata, C. diff is negative. WBC in stools positive. Assessment And Plan: Diarrhea, improving. Shortness of breath continue to be a challenge. Pneumoni tis, possibly obstructive from mass. We will follow the patient as needed. Prognosis guarded. Cont inue antibiotic and supportive care. NF/MODL Voice ID: [id number] Report ID: [id number]
[2018-02-01] MEDS: IPRATROPIUM BROM 0.5MG/2.5ML NEB SCH ×4 (01:10→20:00)
[2018-02-01 05:04] VITALS: BMI 27.6
[2018-02-01 06:15] LABS: BUN Blood Urea Nitrogen 9 mg/dL (7-18); Bicarbonate 33 mmol/L (21-32); Glucose Level 126 mg/dL (74-106); Magnesium 1.8 mg/dL (1.8-2.4); Potassium 3.5 mmol/L (3.5-5.1); Sodium Level 140 mmol/L (136-145)
[2018-02-01] MEDS ORDERED: MAGNESIUM SULFATE 1 gm IVPB 1 GM/100 ML BAG IV ONE (06:19)
[2018-02-01] MEDS ORDERED: POTASSIUM 25 MEQ EFFERV TAB PO ONE (06:20)
[2018-02-01] MEDS: SOTALOL HCL 80 MG TAB PO SCH ×2 (06:41→17:58)
[2018-02-01] MEDS: PANTOPRAZOLE 40MG TABLET PO SCH (06:41)
[2018-02-01] MEDS: ARFORMOTEROL TARTRATE 15 MCG/2 ML VIAL.NEB NEB SCH ×2 (07:30→20:00)
[2018-02-01] MEDS ORDERED: KCL 20 MEQ/100 mL IVPB 20 MEQ/100 ML BAG IV SCH (08:00)
[2018-02-01] MEDS: DILTIAZEM HCL 120 MG SR CAP PO SCH (10:32)
[2018-02-01] MEDS: GUAIFENESIN 600 MG SA TAB PO SCH ×2 (10:32→21:27)
[2018-02-01] MEDS: HYDROCODONE/APAP 5/325 MG TAB PO PRN ×3 (10:33→21:27)
[2018-02-01] MEDS: DULOXETINE 30 MG CAP PO SCH (10:33)
[2018-02-01] MEDS: predniSONE 20 MG TAB PO SCH (10:34)
[2018-02-01] MEDS: FUROSEMIDE 20 MG/ 2ML VIAL IV SCH ×2 (10:34→17:57)
[2018-02-01] MEDS: DOFETILIDE 500 MCG PO SCH ×2 (10:35→21:26)
[2018-02-01] MEDS: APIXABAN 5 MG TABLET PO SCH ×2 (10:36→21:27)
[2018-02-01] MEDS: JUVEN PACKET PO SCH ×2 (10:39→21:30)
[2018-02-01] MEDS: LIDOCAINE 5% PATCH TOP SCH (10:39)
[2018-02-01] MEDS ORDERED: NA CHLORIDE 0.9% 500 ML ONE (11:35)
--- NOTE | 2018-02-01 18:25 | P.PN ---
Subjective Date of Service: 02/01/18 Chief Complaint: respiratory distress Patient seen and examined at bedside. Sister at bedside. Case discussed with nursing staff. Overnight, required Venti mask/CPAP/nasal cannula erratically. Respiratory status waxes and wanes. At the time of my exam, patient is sitting up in chair eating, in no acute distress. Denies any chest pain, palpitations dizziness vision changes or any speech changes at this time. Review of Systems As noted Physical Examination - Vital Signs Temperature: 97.9 F Blood Pressure: 135/83 Pulse: 83 Respirations: 20 Pulse Ox (%): 94 - Physical Exam General: Alert, In no apparent distress, Oriented x3 HEENT: Atraumatic, PERRLA, EOMI Neck: Supple, JVD not distended Respiratory: Diminished, Crackles/rales Cardiovascular: Normal S1 S2, Irregular heart rate/rhythm Gastrointestinal: Normal bowel sounds, No tenderness Musculoskeletal: No tenderness Integumentary: No rashes Neurological: Normal speech, Normal tone, Normal affect Lymphatics: No axilla or inguinal lymphadenopathy - Studies Microbiology Data (last 24 hrs): 01/27/18 15:10 Blood - Blood Aerobic Blood Culture - Final No growth in 5 days. 01/27/18 15:10 Blood - Blood Anaerobic Blood Culture - Final No growth in 5 days. 01/27/18 13:58 Blood - Blood Aerobic Blood Culture - Final No growth in 5 days. 01/27/18 13:58 Blood - Blood Anaerobic Blood Culture - Final No growth in 5 days. Medications List Reviewed: Yes Assessment And Plan - Plan A 67-year-old female with: - Acute respiratory distress on chronic history failure, end-stage chronic obstructive pulmonary disease: Currently on BiPAP, continue as needed. Will try to wean. Pulmonology Dr. dale consulted. Recommendations appreciated. - Severe sepsis: Improving. Patient's blood pressure now improved, Patient is immunocompromised secondary to her chemotherapy (ANC in normal range) and DMARDs due to her rheumatoid arthritis. Follow up on cultures, negative to date. - Gastroenteritis: Stool cultures negative so far for C. diff, noro virus, Salmonella Shigella. Ova and parasite testing still pending. Patient recently had norovirus. - Status post fall secondary to hypotension: CT scan of the head negative for trauma including CT cervical spine. We will continue with fall precautions and bedrest. Lidocaine patch to the area under breast. - Atrial fibrillation with rapid ventricular response: Now sinus rhythm. Patient received Lopressor IV. We will continue her Cardizem and antiarrhythmics. Appreciate Cardiology input. - Acute kidney injury, likely related to sepsis: Creatinine has now normalized. We will continue to monitor. Continue IV fluids. - Hypomagnesemia. Resolved. Will continue to monitor. - Hypokalemia. Resolved. We will continue to monitor. - Elevated troponin level secondary to sepsis. No acute coronary syndrome. Patient does report some chest pain with atrial fibrillation with rapid ventricular response. No changes on EKG. Chest pain is improved after the atrial fibrillation has improved. Continue to monitor. If new symptoms of chest pain and occur, will recheck cardiac enzymes and EKG at that time. - Normocytic normochromic anemia, likely anemia of chronic disease. No evidence of overt bleeding at this time. Monitor H and H. - Right upper lobe non-small cell cancer of the lung, recent diagnosis, currently on chemotherapy and radiation therapy at [facility]. - Rheumatoid arthritis, generalized DMARDs on hold due to sepsis. - Gastroesophageal reflux disease without esophagitis. Continue PPI. - Depression with anxiety: Stable - Chronic pain syndrome. We will continue with pain medications as tolerated. - Essential hypertension. We will continue home medications as appropriate - Obesity, BMI 36: Counseled. DVT prophylaxis: Lovenox Diet: Heart healthy. Disposition: [facility] without any bed, still pending transfer. Discussed with the patient's refrigeration lead at [facility], Dr. Silva. Will transfer patient to floor, continue medical management. Poor/ guarded overall prognosis. Monitor, pending symptomatic improvement. Physician Review: Patient Assessed, Agree with Above Assessment and Plan Time Spent Managing PTS Care (In Minutes): 55
[2018-02-01] MEDS: FENTANYL CITR 100 MCG/2 ML IV PRN (19:56)
[2018-02-01] MEDS ORDERED: METOPROLOL TAR 50 MG TAB PO ONE (21:37)
[2018-02-02] MEDS: IPRATROPIUM BROM 0.5MG/2.5ML NEB SCH ×4 (01:23→19:50)
[2018-02-02] MEDS: HYDROCODONE/APAP 5/325 MG TAB PO PRN ×4 (04:13→21:35)
[2018-02-02 06:08] LABS: BUN Blood Urea Nitrogen 12 mg/dL (7-18); Bicarbonate 36 mmol/L (21-32); Glucose Level 108 mg/dL (74-106); Potassium 3.2 mmol/L (3.5-5.1); Sodium Level 141 mmol/L (136-145)
[2018-02-02 06:09] LABS: Magnesium 1.3 mg/dL (1.8-2.4)
[2018-02-02] MEDS ORDERED: Magnesium Sulfate 2gm IVPB 2 G/50 ML BAG IV ONE ×2 (06:14→16:00)
[2018-02-02] MEDS ORDERED: POTASSIUM CL SA 10 MEQ TAB PO ONE ×3 (06:16→23:33)
[2018-02-02] MEDS: SOTALOL HCL 80 MG TAB PO SCH ×2 (06:19→17:55)
[2018-02-02] MEDS: PANTOPRAZOLE 40MG TABLET PO SCH (06:20)
[2018-02-02] MEDS: GUAIFENESIN 600 MG SA TAB PO SCH ×2 (08:31→21:35)
[2018-02-02] MEDS: predniSONE 20 MG TAB PO SCH (08:31)
[2018-02-02] MEDS: DULOXETINE 30 MG CAP PO SCH (08:32)
[2018-02-02] MEDS: DILTIAZEM HCL 120 MG SR CAP PO SCH (08:33)
[2018-02-02] MEDS: DOFETILIDE 500 MCG PO SCH ×2 (08:34→21:35)
[2018-02-02] MEDS: FUROSEMIDE 20 MG/ 2ML VIAL IV SCH (08:35)
[2018-02-02] MEDS: APIXABAN 5 MG TABLET PO SCH ×2 (08:35→21:35)
[2018-02-02] MEDS: ARFORMOTEROL TARTRATE 15 MCG/2 ML VIAL.NEB NEB SCH ×2 (08:59→19:50)
[2018-02-02] MEDS: LIDOCAINE 5% PATCH TOP SCH ×2 (09:00→21:37)
[2018-02-02] MEDS: JUVEN PACKET PO SCH ×2 (10:12→21:37)
--- NOTE | 2018-02-02 12:27 | P.PN ---
Subjective Date of Service: 02/02/18 Chief Complaint: Right upper lobar atelectasis Subjective: Improving (Patient is doing well sitting in chair eating drinking communicating and he is on nasal cannula oxygen diarrhea subsided no new complaints) Review of Systems General: Weakness Respiratory: Shortness of Breath Physical Examination - Vital Signs Temperature: 97.2 F Blood Pressure: 165/90 Pulse: 80 Respirations: 18 Pulse Ox (%): 95 - Physical Exam General: Alert, Oriented x3 HEENT: Atraumatic Neck: Supple Respiratory: Diminished Cardiovascular: No edema Gastrointestinal: Normal bowel sounds, Soft and benign - Studies Microbiology Data (last 24 hrs): 01/27/18 15:10 Blood - Blood Aerobic Blood Culture - Final No growth in 5 days. 01/27/18 15:10 Blood - Blood Anaerobic Blood Culture - Final No growth in 5 days. 01/27/18 13:58 Blood - Blood Aerobic Blood Culture - Final No growth in 5 days. 01/27/18 13:58 Blood - Blood Anaerobic Blood Culture - Final No growth in 5 days. Medications List Reviewed: Yes Assessment & Plan - Problems (Diagnosis) (1) Acute respiratory distress Current Visit: No Status: Acute Plan: Patient is 67 years of age recent diagnosis all lung cancer which is rapidly progressive. She has complete collapse of the right upper lobe patient's vital signs are stable there is no evidence of sepsis. discharge on Spiriva. Resume pred. Pt has Brovana at home. To f/u with oncology for radiation. Advised to use diaphragmatic breathiing Physician Review: Patient Assessed, Agree with Above Assessment and Plan
[2018-02-02 13:36] LABS: Potassium 3.1 mmol/L (3.5-5.1)
[2018-02-02 13:38] LABS: Magnesium 1.4 mg/dL (1.8-2.4)
--- NOTE | 2018-02-02 13:40 | P.PN ---
Subjective Date of Service: 02/02/18 Chief Complaint: Right upper lobar atelectasis Patient seen and examined at bedside. Sister at bedside. Case discussed with nursing staff. No acute events overnight. At the time of exam, sitting up in chair, in no acute distress on nasal cannula. Denies any chest pain, palpitations dizziness vision changes or any speech changes at this time. Review of Systems As noted Physical Examination - Vital Signs Temperature: 97.2 F Blood Pressure: 165/90 Pulse: 80 Respirations: 18 Pulse Ox (%): 95 - Physical Exam General: Alert, In no apparent distress, Oriented x3 HEENT: Atraumatic, PERRLA, EOMI Neck: Supple, JVD not distended Respiratory: Diminished, Crackles/rales, Other (Nasal cannula) Cardiovascular: Regular rate/rhythm, Normal S1 S2 Gastrointestinal: Normal bowel sounds, No tenderness Musculoskeletal: No tenderness Integumentary: No rashes Neurological: Normal speech, Normal tone, Normal affect - Studies Microbiology Data (last 24 hrs): 01/27/18 15:10 Blood - Blood Aerobic Blood Culture - Final No growth in 5 days. 01/27/18 15:10 Blood - Blood Anaerobic Blood Culture - Final No growth in 5 days. 01/27/18 13:58 Blood - Blood Aerobic Blood Culture - Final No growth in 5 days. 01/27/18 13:58 Blood - Blood Anaerobic Blood Culture - Final No growth in 5 days. Medications List Reviewed: Yes Assessment And Plan - Plan A 67-year-old female with: - Acute respiratory distress on chronic history failure, end-stage chronic obstructive pulmonary disease: Currently on nasal cannula continue as needed. Currently on home oxygen level. Pulmonology Dr. dale consulted. Recommendations appreciated. - Severe sepsis: Resolved. Patient's blood pressure now improved, Patient is immunocompromised secondary to her chemotherapy (ANC in normal range) and DMARDs due to her rheumatoid arthritis. Follow up on cultures, negative to date. - Gastroenteritis: Stool cultures negative so far for C. diff, noro virus, Salmonella Shigella. Ova and parasite testing still pending. Patient recently had norovirus. - Status post fall secondary to hypotension: CT scan of the head negative for trauma including CT cervical spine. We will continue with fall precautions and bedrest. Lidocaine patch to the area under breast. - Atrial fibrillation with rapid ventricular response: Now sinus rhythm. Patient received Lopressor IV. We will continue her Cardizem and antiarrhythmics. Appreciate Cardiology input. - Acute kidney injury, likely related to sepsis: Creatinine has now normalized. We will continue to monitor. Continue IV fluids. - Hypomagnesemia. Resolved. Will continue to monitor. - Hypokalemia. Resolved. We will continue to monitor. - Elevated troponin level secondary to sepsis. No acute coronary syndrome. Patient does report some chest pain with atrial fibrillation with rapid ventricular response. No changes on EKG. Chest pain is improved after the atrial fibrillation has improved. Continue to monitor. If new symptoms of chest pain and occur, will recheck cardiac enzymes and EKG at that time. - Normocytic normochromic anemia, likely anemia of chronic disease. No evidence of overt bleeding at this time. Monitor H and H. 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 - Rheumatoid arthritis, generalized DMARDs on hold due to sepsis. - Gastroesophageal reflux disease without esophagitis. Continue PPI. - Depression with anxiety: Stable - Chronic pain syndrome. We will continue with pain medications as tolerated. - Essential hypertension. We will continue home medications as appropriate - Obesity, BMI 36: Counseled. DVT prophylaxis: Lovenox Diet: Heart healthy. Disposition: [facility] without any bed, still pending transfer. Discussed with the patient's acoustic engineer at [facility], Dr. Silva. Continue medical management. Poor/guarded overall prognosis. If remained stable overnight on nasal cannula, likely discharge home tomorrow with outpatient followup with acoustic engineer and oncologist. Patient seems to already have appointment scheduled for Monday. Physician Review: Patient Assessed, Agree with Above Assessment and Plan Time Spent Managing PTS Care (In Minutes): 45
[2018-02-02] MEDS ORDERED: NA CHLORIDE 0.9% 250 ML ONE (16:53)
[2018-02-02] MEDS: FENTANYL CITR 100 MCG/2 ML IV PRN (19:06)
[2018-02-03] MEDS: HYDROCODONE/APAP 5/325 MG TAB PO PRN ×3 (01:08→18:12)
[2018-02-03] MEDS: IPRATROPIUM BROM 0.5MG/2.5ML NEB SCH ×4 (02:35→19:44)
[2018-02-03] MEDS: FENTANYL CITR 100 MCG/2 ML IV PRN ×2 (03:33→16:13)
[2018-02-03 05:19] LABS: BUN Blood Urea Nitrogen 15 mg/dL (7-18); Bicarbonate 34 mmol/L (21-32); Glucose Level 95 mg/dL (74-106); Magnesium 1.6 mg/dL (1.8-2.4); Potassium 3.8 mmol/L (3.5-5.1); Sodium Level 138 mmol/L (136-145)
[2018-02-03] MEDS ORDERED: MAGNESIUM SULFATE 1 gm IVPB 1 GM/100 ML BAG IV ONE (06:00)
[2018-02-03] MEDS ORDERED: POTASSIUM CL SA 10 MEQ TAB PO ONE (06:00)
[2018-02-03] MEDS: PANTOPRAZOLE 40MG TABLET PO SCH (06:20)
[2018-02-03] MEDS: SOTALOL HCL 80 MG TAB PO SCH ×2 (06:20→18:05)
[2018-02-03] MEDS: ARFORMOTEROL TARTRATE 15 MCG/2 ML VIAL.NEB NEB SCH ×2 (07:36→19:43)
--- NOTE | 2018-02-03 11:28 | RAD REPORT ---
EXAM DESCRIPTION: RADChest Single View02/03/2018 11:15 am CLINICAL HISTORY: sob COMPARISON: January 31, 2018 FINDINGS: No significant change in the right upper lobe atelectasis and bilateral lung opacities. Ce ntral venous catheter remains in place
[2018-02-03 13:05] LABS: Urine Appearance CLEAR; Urine Bilirubin NEGATIVE (NEG); Urine Blood NEGATIVE (NEG); Urine Color YELLOW; Urine Glucose NEGATIVE (NEG); Urine Protein NEGATIVE (NEG); Urine Specific Gravity 1.015 (1.005-1.030); Urine Urobilinogen 0.2 mg/dL (0.2-1.0)
[2018-02-03 13:14] LABS: Urine Microscopic Reflex NO UMIC
[2018-02-03] MEDS: JUVEN PACKET PO SCH ×2 (13:59→21:15)
--- NOTE | 2018-02-03 14:04 | P.PN ---
Subjective Date of Service: 02/03/18 Chief Complaint: Right upper lobar atelectasis Patient seen and examined at bedside. Sister at bedside. Case discussed with nursing staff. No acute events overnight. More sleepy and tired this am. Denies any chest pain, palpitations dizziness vision changes or any speech changes at this time. Review of Systems As noted above Physical Examination - Vital Signs Temperature: 98.1 F Blood Pressure: 150/72 Pulse: 83 Respirations: 24 Pulse Ox (%): 91 - Physical Exam General: Alert, In no apparent distress, Other (more sleepy) HEENT: Atraumatic, PERRLA, EOMI Neck: Supple, JVD not distended Respiratory: Dull, Crackles/rales Cardiovascular: Normal S1 S2, Irregular heart rate/rhythm Gastrointestinal: Normal bowel sounds, No tenderness Musculoskeletal: No tenderness Integumentary: No rashes - Studies Medications List Reviewed: Yes Assessment And Plan - Plan A 67-year-old female with: - Acute respiratory distress on chronic history failure, end-stage chronic obstructive pulmonary disease: Currently on nasal cannula and cpap, continue as needed. Currently on home oxygen level. Pulmonology Dr. dale consulted. Recommendations appreciated. - Severe sepsis: Resolved. Patient's blood pressure now improved, Patient is immunocompromised secondary to her chemotherapy (ANC in normal range) and DMARDs due to her rheumatoid arthritis. Follow up on cultures, negative to date. - Gastroenteritis: Stool cultures negative so far for C. diff, noro virus, Salmonella Shigella. Ova and parasite testing still pending. Patient recently had norovirus. - Status post fall secondary to hypotension: CT scan of the head negative for trauma including CT cervical spine. We will continue with fall precautions and bedrest. Lidocaine patch to the area under breast. - Atrial fibrillation with rapid ventricular response: Now sinus rhythm. Patient received Lopressor IV. We will continue her Cardizem and antiarrhythmics. Appreciate Cardiology input. - Acute kidney injury, likely related to sepsis: Creatinine has now normalized. We will continue to monitor. Continue IV fluids. - Hypomagnesemia. Resolved. Will continue to monitor. - Hypokalemia. Resolved. We will continue to monitor. - Elevated troponin level secondary to sepsis. No acute coronary syndrome. Patient does report some chest pain with atrial fibrillation with rapid ventricular response. No changes on EKG. Chest pain is improved after the atrial fibrillation has improved. Continue to monitor. If new symptoms of chest pain and occur, will recheck cardiac enzymes and EKG at that time. - Normocytic normochromic anemia, likely anemia of chronic disease. No evidence of overt bleeding at this time. Monitor H and H. 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 - Rheumatoid arthritis, generalized DMARDs on hold due to sepsis. - Gastroesophageal reflux disease without esophagitis. Continue PPI. - Depression with anxiety: Stable - Chronic pain syndrome. We will continue with pain medications as tolerated. - Essential hypertension. We will continue home medications as appropriate - Obesity, BMI 36: Counseled. DVT prophylaxis: Lovenox Diet: Heart healthy. Disposition: [facility] without any bed, still pending transfer. Discussed with the patient's foundation coordinator at [facility], Dr. Silva. Continue medical management. Poor/guarded overall prognosis. If remained stable overnight on nasal cannula, likely discharge home tomorrow with outpatient followup with foundation coordinator and oncologist. Patient seems to already have appointment scheduled for Monday. Physician Review: Patient Assessed, Agree with Above Assessment and Plan
[2018-02-03] MEDS: DILTIAZEM HCL 120 MG SR CAP PO SCH (14:06)
[2018-02-03] MEDS: DULOXETINE 30 MG CAP PO SCH (14:14)
[2018-02-03] MEDS: predniSONE 20 MG TAB PO SCH (14:14)
[2018-02-03] MEDS: DOFETILIDE 500 MCG PO SCH ×2 (14:16→21:16)
[2018-02-03] MEDS: GUAIFENESIN 600 MG SA TAB PO SCH ×2 (14:16→21:15)
[2018-02-03] MEDS: APIXABAN 5 MG TABLET PO SCH ×2 (14:17→21:16)
[2018-02-03] MEDS: LIDOCAINE 5% PATCH TOP SCH (21:15)
[2018-02-04] MEDS: IPRATROPIUM BROM 0.5MG/2.5ML NEB SCH ×2 (01:25→08:10)
[2018-02-04] MEDS: SOTALOL HCL 80 MG TAB PO SCH (05:46)
[2018-02-04] MEDS: PANTOPRAZOLE 40MG TABLET PO SCH (06:12)
[2018-02-04 06:19] LABS: BUN Blood Urea Nitrogen 12 mg/dL (7-18); Bicarbonate 34 mmol/L (21-32); Glucose Level 110 mg/dL (74-106); Magnesium 1.6 mg/dL (1.8-2.4); Potassium 3.5 mmol/L (3.5-5.1); Sodium Level 141 mmol/L (136-145)
[2018-02-04] MEDS ORDERED: MAGNESIUM SULFATE 1 gm IVPB 1 GM/100 ML BAG IV ONE (07:00)
[2018-02-04] MEDS ORDERED: POTASSIUM 25 MEQ EFFERV TAB PO ONE (07:00)
[2018-02-04] MEDS: HYDROCODONE/APAP 5/325 MG TAB PO PRN (07:30)
[2018-02-04] MEDS ORDERED: POTASSIUM CL SA 10 MEQ TAB PO ONE (08:08)
[2018-02-04] MEDS: ARFORMOTEROL TARTRATE 15 MCG/2 ML VIAL.NEB NEB SCH (08:10)
[2018-02-04] MEDS: DULOXETINE 30 MG CAP PO SCH (08:59)
[2018-02-04] MEDS: GUAIFENESIN 600 MG SA TAB PO SCH (08:59)
[2018-02-04] MEDS: DOFETILIDE 500 MCG PO SCH (08:59)
[2018-02-04] MEDS: JUVEN PACKET PO SCH (09:00)
[2018-02-04] MEDS ORDERED: predniSONE 10 MG TAB PO SCH (09:00)
[2018-02-04] MEDS: FENTANYL CITR 100 MCG/2 ML IV PRN (11:35)
[2018-02-04] MEDS: DILTIAZEM HCL 120 MG SR CAP PO SCH (11:35)
[2018-02-04] MEDS: APIXABAN 5 MG TABLET PO SCH (11:35)
[2018-02-04 12:07] VITALS: O2SAT 99
[2018-02-04 15:23] VITALS: BP 147/78; TEMP 97.9
== END 2018-02-04 13:58 | disposition home or self-care (01) | DRG 872 ==
LOC: ER 13:34 → ERHOLD 17:56 → 3RD-ICU 20:02 → 2ND 01-30 15:25
PROVIDERS: ADMIT Family Medicine; ATTEND Family Medicine
PROC: 5A09557 Assistance with Respiratory Ventilation, Greater than 96 Consecutive Hours, Continuous Positive Airway Pressure (ICD-10-PCS; principal; 2018-01-29)
DX: A41.9 Sepsis, unspecified organism (principal); C34.11 Malignant neoplasm of upper lobe, right bronchus or lung; N17.9 Acute kidney failure, unspecified; D61.818 Other pancytopenia; D80.3 Selective deficiency of immunoglobulin G [IgG] subclasses; J96.10 Chronic respiratory failure, unspecified whether with hypoxia or hypercapnia; J98.11 Atelectasis; A04.72 Enterocolitis due to Clostridium difficile, not specified as recurrent; R65.20 Severe sepsis without septic shock; M06.9 Rheumatoid arthritis, unspecified; F32.9 Major depressive disorder, single episode, unspecified; G89.4 Chronic pain syndrome; E66.01 Morbid (severe) obesity due to excess calories; Z99.81 Dependence on supplemental oxygen; F41.9 Anxiety disorder, unspecified; I10 Essential (primary) hypertension; K21.9 Gastro-esophageal reflux disease without esophagitis; K44.9 Diaphragmatic hernia without obstruction or gangrene; Z88.0 Allergy status to penicillin; Z88.8 Allergy status to other drugs, medicaments and biological substances; Z91.048 Other nonmedicinal substance allergy status; I95.9 Hypotension, unspecified; D63.8 Anemia in other chronic diseases classified elsewhere; E83.42 Hypomagnesemia; E87.6 Hypokalemia; R79.89 Other specified abnormal findings of blood chemistry; Z68.36 Body mass index [BMI] 36.0-36.9, adult; S00.83XA Contusion of other part of head, initial encounter; W18.39XA Other fall on same level, initial encounter; Y93.01 Activity, walking, marching and hiking; Y92.019 Unspecified place in single-family (private) house as the place of occurrence of the external cause; I48.2 Chronic atrial fibrillation; Z79.01 Long term (current) use of anticoagulants; J84.10 Pulmonary fibrosis, unspecified; K52.9 Noninfective gastroenteritis and colitis, unspecified; J44.9 Chronic obstructive pulmonary disease, unspecified; R06.03 Acute respiratory distress
CPT/HCPCS: 36415; 51702; 70450; 71045; 71260; 72125; 74177; 80048; 80053; 80076; 80202; 81003; 81015; 82550; 82553; 82805; 83605; 83735; 83880; 84132; 84145; 84484; 85025; 85610; 87040; 87045; 87046; 87086; 87088; 87177; 87209; 87425; 87493; 89055; 93005; 94640; 94660; 94760; 96361; 96365; 96366; 96367; 97163; 99285; J1940; J3010; J3370; J3475; J7030; J7512; J7605; Q9967

== ENCOUNTER 2018-03-18 04:08 | Inpatient (IN) | payer OTHER ==
--- OUTSIDE RECORDS SUMMARY | 2018-03-18 04:11 | XMS REPORT | Clinical Summary ---
:1950 Author Organization [facility] Address [address] [place] [address] Care Team Providers Name Role Phone Unavailable [...] 06/13/2017 Active (human) (PRIVIGEN) injection 45 g immune globulin 45 g IV Once 03/17/2017 03/17/2017 Ended (human) (PRIVIGEN) injection 45 gIndications: CIDP (chronic inflammatory demyelinating polyneuropathy) (HCC) sodium chloride 0.9% IV Once 03/17/2017 03/17/2017 Ended (NS) infusionIndications: CIDP (chronic inflammatory demyelinating polyneuropathy) (HCC) diphenhydrAMINE 25 mg IV Once 03/17/2017 03/17/2017 Ended (BENADRYL) injection 25 mgIndications: CIDP (chronic inflammatory demyelinating polyneuropathy) (HCC) immune globulin 45 g IV Once 04/14/2017 04/18/2017 Discontinued (human) (PRIVIGEN) injection 45 g immune globulin 45 g IV Once 04/18/2017 04/18/2017 Ended (human) and maltose (OCTAGAM) injection 45 gIndications: CIDP (chronic inflammatory demyelinating polyneuropathy) (HCC) sodium chloride 0.9% IV Once 04/18/2017 04/18/2017 Ended (NS) infusion diphenhydrAMINE 25 mg IV Once 04/18/2017 04/18/2017 Ended (BENADRYL) injection 25 mg immune globulin 45 g IV Once 05/16/2017 05/16/2017 Ended (human) and maltose (OCTAGAM) injection 45 g sodium chloride 0.9% IV Once 05/16/2017 05/16/2017 Ended (NS) infusion diphenhydrAMINE 25 mg IV Once 05/16/2017 05/16/2017 Ended (BENADRYL) injection 25 mg sodium chloride 0.9% IV Once 06/13/2017 06/13/2017 Ended (NS) infusion diphenhydrAMINE 25 mg IV Once 06/13/2017 06/13/2017 Ended (BENADRYL) injection [...] polyneuropathy) (HCC) diphenhydrAMINE 25 mg IV Once 07/11/2017 07/11/2017 Ended (BENADRYL) injection 25 mgIndications: CIDP (chronic inflammatory demyelinating polyneuropathy) (HCC) immune globulin 45 g IV Once 08/10/2017 08/10/2017 Ended (human) and maltose (OCTAGAM) injection 45 gIndications: CIDP (chronic inflammatory demyelinating polyneuropathy) (HCC) sodium chloride 0.9% IV Once 08/10/2017 08/10/2017 Ended (NS) infusion diphenhydrAMINE 25 mg IV Once 08/10/2017 08/10/2017 Ended (BENADRYL) injection 25 mg immune globulin 45 g IV Once 09/12/2017 09/12/2017 Ended (human) and maltose (OCTAGAM) injection 45 gIndications: CIDP (chronic inflammatory demyelinating polyneuropathy) ([facility]) sodium chloride 0.9% IV Once 09/12/2017 09/12/2017 Ended (NS) infusion diphenhydrAMINE 25 mg IV Once 09/12/2017 09/12/2017 Ended (BENADRYL) injection 25 mg immune globulin 40 g IV Once 10/12/2017 10/12/2017 Ended (human) and maltose (OCTAGAM) injection 40 gIndications: CIDP (chronic inflammatory demyelinating polyneuropathy) ([facility]) sodium chloride 0.9% IV Once 10/12/2017 10/12/2017 Ended (NS) infusion diphenhydrAMINE 25 mg IV Once 10/12/2017 10/12/2017 Ended (BENADRYL) injection 25 mg immune globulin 40 g IV Once 11/09/2017 11/09/2017 Ended (human) and maltose (OCTAGAM) injection 40 gIndications: CIDP (chronic inflammatory demyelinating polyneuropathy) ([facility]) sodium chloride 0.9% IV Once 11/09/2017 11/09/2017 Ended (NS) infusion diphenhydrAMINE 25 mg IV Once 11/09/2017 11/09/2017 Ended (BENADRYL) injection 25 mg Active Problems Problem Noted Date COPD (chronic obstructive pulmonary disease) 08/09/2013 Bronchiectasis 08/09/2013 Hypogammaglobulinemia 12/03/2012 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 Encounters Date Type Specialty Care Team Description 12/07/2017 Procedure visit Oncology Rian Olivera CIDP (chronic inflammatory P., MD demyelinating polyneuropathy) Jin Morris ([facility]) MD Darryl 11/09/2017 Procedure visit Oncology Rian Olivera CIDP (chronic inflammatory P., MD demyelinating polyneuropathy) Jin Morris ([facility]) MD Viktor Andrews Shannon, RN 10/12/2017 Procedure visit Oncology Rian Olivera CIDP (chronic inflammatory P., MD demyelinating polyneuropathy) Jin Morris ([facility]) MD Bekah Andrews Rachel L, RN 09/12/2017 Procedure visit Oncology Rian Olivera CIDP (chronic inflammatory P., MD demyelinating polyneuropathy) Jin Morris ([facility]) MD Syl Andrews Dana M, RN 08/10/2017 Procedure visit Oncology Rian Olivera CIDP (chronic inflammatory PMD Carol demyelinating polyneuropathy) Jin Morris ([facility]) MD Kenney Andrews L R, RN 07/11/2017 Procedure visit Oncology Rian Olivera CIDP (chronic inflammatory PMD Carol demyelinating polyneuropathy) Jin Morris ([facility]) (Primary Dx) MD Bakari Andrews Shalonda, RN 06/13/2017 Procedure visit Oncology Rian Olivera Hypogammaglobulinemia ( HCC) MD Morena (Primary Dx) Jin Morris MD Alexander, L R RN 05/16/2017 Procedure visit Oncology Rian Olivera Hypogammaglobulinemia ( [facility]) MD Morena (Primary Dx) Jin Morris MD Alexander, L R RN 04/18/2017 Procedure visit Oncology Rian Olivera CIDP (chronic inflammatory PMD Carol demyelinating polyneuropathy) Jin Morris ([facility]) (Primary Dx) MD Bakari Andrews Shalonda, RN 04/14/2017 Procedure visit Oncology Rian Olivera Canceled (Patient) MD Arturo Berg Jose Fernando, MD 03/17/2017 Procedure visit Oncology Rian Olivera CIDP (chronic inflammatory P., MD demyelinating polyneuropathy) Jin Morris ([facility]) (Primary Dx) MD Bekah Andrews Rachel L, RN after 03/17/2017 Family History Medical History Relation Name Comments [...] 14.4 oz) 09/12/2017 10:50 AM CDT Height - - Body Mass Index 36.32 09/12/2017 10:50 AM [...] are in demyelinating the results polyneuropathy) ([facility]) section. BUN Routine 07/11/2017 2:00 CIDP (chronic Results for this PM CDT inflammatory procedure are in demyelinating the results polyneuropathy) ([facility]) section. CREATININE Routine 04/18/2017 11:28 CIDP (chronic Results for this AM [employer] inflammatory procedure are in demyelinating the results polyneuropathy) ([facility]) section. BUN Routine 04/18/2017 11:28 CIDP (chronic Results for this AM [employer] inflammatory procedure are in demyelinating the results polyneuropathy) ([facility]) section. after 03/17/2017 Results BUN and Creatinine (09/12/2017 11:27 AM CDT) BUN 20 7 - 21 mg/dL [facility] Creatinine 0.80Comment: Specimen 0.57 - 1.25 mg/dL [facility] moderately hemolyzed [facility] EGFR 72Comment: ESTIMATED GFR IS mL/min/1.73 sq m [facility] NOT ACCURATE CREATININE [facility] CLEARANCE IN PREDICTING GLOMERULAR FILTRATION RATE. ESTIMATED GFR IS NOT APPLICABLE FOR DIALYSIS PATIENTS. Specimen Blood Performing Organization Address City/State/Zipcode Phone Number [facility] [address] [phone] CENTER BUN (07/11/2017 2:00 PM CDT)Only the most recent of2 resultswithin the time period is included. BUN 14 7 - 21 mg/dL [facility] Specimen Blood Performing Organization Address City/[facility] Phone Number [address] [address] [phone] CENTER Creatinine (07/11/2017 2:00 PM CDT)Only the most recent of2 resultswithin the time period is included. Creatinine 0.78 0.57 - 1.25 mg/dL [facility] EGFR 74Comment: ESTIMATED GFR IS mL/min/1.73 sq m [facility] NOT ACCURATE CREATININE [facility] CLEARANCE IN PREDICTING GLOMERULAR FILTRATION RATE. ESTIMATED GFR IS NOT APPLICABLE FOR DIALYSIS PATIENTS. Specimen Blood Performing Organization Address City/[facility] Phone Number [address] [address] CENTER after 03/17/2017 Insurance Payer Benefit Plan / Group Subscriber ID Type Phone Address MEDICARE MEDICARE A B xxxxxxxxxx Medicare MCR SUPPLEMENT/[employer] xxxxxxxx [facility] Advance Directives For more information, please contact:[address] [phone] Code Status Date Activated Date Inactivated Comments Code ONE 08/09/2013 4:35 PM 08/15/2013 3:38 PM All possible means of support , including: cardiac massage, mechanical ventilation, and defibrillation will be used to support life.
--- OUTSIDE RECORDS SUMMARY | 2018-03-18 04:11 | XMS REPORT ---
:1950 [facility] Address [address] [place] [address] Care Team Providers Name Role Phone JENNIFRE WALSH Unavailable Unavailable Problems This patient has no known problems. Allergies, Adverse Reactions, Alerts This patient has no known allergies or adverse reactions. Medications This patient has no known medications. Results Test Description Test Time Test Comments Text Results Atomic Results Result Comments BUN AND CREATININE 2017-09-12 15:05:00 Test Item Value Reference Range Comments BLOOD UREA NITROGEN (BEAKER) 20 mg/dL 7-21 (test ehbt=886) CREATININE (BEAKER) (test 0.80 mg/dL 0.57-1.25 Specimen moderately rqea=261) hemolyzed EGFR (BEAKER) (test 72 mL/min/1.73 sq m ESTIMATED GFR IS NOT ilsr=5811) ACCURATE CREATININE CLEARANCE IN PREDICTING GLOMERULAR FILTRATION RATE. ESTIMATED GFR IS NOT APPLICABLE FOR DIALYSIS PATIENTS. [id number] 15:50:00 Test Item Value Reference Range Comments BLOOD UREA NITROGEN (BEAKER) (test kryl=720) 14 mg/dL 7-21 [id number] 15:50:00 Test Item Value Reference Range Comments CREATININE (BEAKER) (test 0.78 mg/dL 0.57-1.25 grxr=436) EGFR (BEAKER) (test 74 mL/min/1.73 sq m ESTIMATED GFR IS NOT jpqd=2147) ACCURATE CREATININE CLEARANCE IN PREDICTING GLOMERULAR FILTRATION RATE. ESTIMATED GFR IS NOT APPLICABLE FOR DIALYSIS PATIENTS. [id number] 14:55:00 Test Item Value Reference Range Comments BLOOD UREA NITROGEN (BEAKER) (test trku=302) 11 mg/dL 7-21 [id number] 14:55:00 Test Item Value Reference Range Comments CREATININE (BEAKER) (test 0.65 mg/dL 0.57-1.25 susm=362) EGFR (BEAKER) (test 91 mL/min/1.73 sq m ESTIMATED GFR IS NOT deiv=7810) ACCURATE CREATININE CLEARANCE IN PREDICTING GLOMERULAR FILTRATION RATE. ESTIMATED GFR IS NOT APPLICABLE FOR DIALYSIS PATIENTS. BUN AND [id number] 15:59:00 Test Item Value Reference Range Comments BLOOD UREA NITROGEN 10 mg/dL 7-21 (BEAKER) (test ujmz=485) CREATININE (BEAKER) (test 0.65 mg/dL 0.57-1.25 srui=429) EGFR (BEAKER) (test 91 mL/min/1.73 sq m ESTIMATED GFR IS NOT skjw=8271) ACCURATE CREATININE CLEARANCE IN PREDICTING GLOMERULAR FILTRATION RATE. ESTIMATED GFR IS NOT APPLICABLE FOR DIALYSIS PATIENTS. [id number] 14:45:00 Test Item Value Reference Range Comments BLOOD UREA NITROGEN (BEAKER) (test smmk=374) 13 mg/dL 7-21 [id number] 14:45:00 Test Item Value Reference Range Comments CREATININE (BEAKER) (test 0.74 mg/dL 0.57-1.25 zbwc=838) EGFR (BEAKER) (test 79 mL/min/1.73 sq m ESTIMATED GFR IS NOT evod=9470) ACCURATE CREATININE CLEARANCE IN PREDICTING GLOMERULAR FILTRATION RATE. ESTIMATED GFR IS NOT APPLICABLE FOR DIALYSIS PATIENTS. BUN AND [id number] 14:55:00 Test Item Value Reference Range Comments BLOOD UREA NITROGEN 13 mg/dL 7-21 (BEAKER) (test tbmw=024) CREATININE (BEAKER) (test 0.69 mg/dL 0.57-1.25 oiuj=304) EGFR (BEAKER) (test 85 mL/min/1.73 sq m ESTIMATED GFR IS NOT lxql=8838) ACCURATE CREATININE CLEARANCE IN PREDICTING GLOMERULAR FILTRATION RATE. ESTIMATED GFR IS NOT APPLICABLE FOR DIALYSIS PATIENTS. [id number] 17:24:00 Test Item Value Reference Range Comments BLOOD UREA NITROGEN (BEAKER) (test xobl=525) 12 mg/dL 7-21 [id number] 17:24:00 Test Item Value Reference Range Comments CREATININE (BEAKER) (test 0.67 mg/dL 0.57-1.25 evsy=057) EGFR (BEAKER) (test 89 mL/min/1.73 sq m ESTIMATED GFR IS NOT rjjz=4508) ACCURATE CREATININE CLEARANCE IN PREDICTING GLOMERULAR FILTRATION RATE. ESTIMATED GFR IS NOT APPLICABLE FOR DIALYSIS PATIENTS.
[2018-03-18 05:05] LABS: Absolute Lymphocytes (CBC) 0.2 K/uL (0.7-4.9); Absolute Monocytes 0.2 K/uL (0.1-1.3); Absolute Neutrophil 1.5 K/uL (1.8-8.0); Basophils % 1.6 % (0-1.3); Eosinophils % 0.5 % (0-4.4); Hematocrit 28.1 % (36.0-45.0); Lymphocytes % 11.3 % (15.3-44.8); Monocytes % 11.1 % (3.3-12.3); RBC Red Blood Cell Count 3.28 M/uL (3.86-4.86)
[2018-03-18 05:06] LABS: Protime INR 1.54
--- NOTE | 2018-03-18 05:31 | ER ---
Nurse's Notes [facility] Name: Marlen Santacruz Age: 67 yrs Sex: Female : 1950 Arrival Date: 03/18/2018 Time: 04:12 Bed 7 Private MD: Diagnosis: Chest pain, unspecified;Atrial fibrillation and flutter;Chronic obstructive pulmonary disease with (acute) exacerbation;Pancytopenia;Pneumonia due to other specified bacteria Presentation: 03/18 04:12 Presenting complaint: Patient states: Chest pain and shortness of breath started approx tl2 45 mins ago. PT also has productive cough with yellow sputum. Transition of care: patient was not received from another setting of care. Onset of symptoms was March 18, 2018 at 03:40. Risk Assessment: Do you want to hurt yourself or someone else? Patient reports no desire to harm self or others. Initial Sepsis Screen: Does the patient meet any 2 criteria? No. Patient's initial sepsis screen is negative. Does the patient have a suspected source of infection? No. Patient's initial sepsis screen is negative. Care prior to arrival: Medication(s) given: ASA, 81 mg, x 4, Nitroglycerin, x 1. 04:12 Method Of Arrival: EMS: [facility] tl2 04:12 Acuity: LINDEN 3 tl2 Triage Assessment: 04:22 General: Appears in no apparent distress. uncomfortable, Behavior is calm, cooperative, tl2 appropriate for age. Pain: Complains of pain in chest Pain does not radiate. Pain currently is 6 out of 10 on a pain scale. Neuro: Level of Consciousness is awake, alert, obeys commands, Oriented to person, place, time, situation. Cardiovascular: Chest pain is described as mild, is located in substernal area. Respiratory: Reports cough that is productive, Airway is patent Respiratory effort is even, unlabored, Respiratory pattern is regular, symmetrical, Breath sounds with wheezes bilaterally. GI: No signs and/or symptoms were reported involving the gastrointestinal system. Derm: Skin is pink, warm \T\ dry. Historical: - Allergies: 04:22 Ciprofloxacin; tl2 04:22 Demerol; tl2 04:22 Ibuprofen; tl2 04:22 Iodine; tl2 04:22 Keflex; tl2 04:22 Levaquin; tl2 04:22 Morphine; tl2 04:22 PENICILLINS; tl2 04:22 Sporanox; tl2 - Home Meds: 04:22 amitriptyline 50 mg Oral tab 2 tabs once daily [Active]; amlodipine 10 mg tab 1 tab tl2 once daily [Active]; antacid/adán/lido 1:1:1 Swish and swallow 2 teaspoons by mouth 10 minutes before meals and every night at bedtime [Active]; Arava 20 mg Oral tab 1 tab once daily [Active]; Atrovent Inhl twice a day [Active]; Boniva 150 mg Oral tab 1 tab once moly [Active]; Brovana 15 mcg/2 mL inhalation nebu 2 mL 2 times per day [Active]; budesonide 0.25mg Oral CECX 2 caps twice a day [Active]; Cartia XT 120 mg Oral cp24 [Active]; cefpodoxime 200 mg Oral tab 1 tab every 12 hours [Active]; clonidine HCl 0.1 mg Oral tab 3 times per day [Active]; dofetilide Oral 1 cap 2 times per day [Active]; duloxetine 60 mg Oral cpDR [Active]; Eliquis 5 mg Oral tab 1 tab 2 times per day [Active]; Esbriet 267 mg Oral cap 3 caps after meals [Active]; hydralazine 50 mg Oral tab 1 tab 2 times per day [Active]; immune globul,gamma(IgG)-sorb-IgA 0 to 50 mcg/mL intravenous every 4 wks [Active]; leflunomide 10 mg Oral tab 2 tabs once daily [Active]; lisinopril 20 mg Oral tab twice a day [Active]; Lyrica Oral 1 cap [Active]; Magnesium Oxide Oral [Active]; Mucinex 600 mg Oral Ta12 1 tab every 12 hours [Active]; Nasonex 50 mcg/actuation Nasal spry once daily [Active]; Marenisco 10-325 mg Oral tab [Active]; omeprazole 40 mg Oral cpDR 1 cap 2 times per day [Active]; potassium chloride 10 mEq Oral cpER 2 caps 2 times per day [Active]; prednisone 10 mg Oral tab once daily [Active]; Prednisone Oral [Active]; propafenone 225 mg Oral tab [Active]; sulfasalazine 500 mg Oral tab 1 tab twice a day [Active]; sulfasalazine 500 mg Oral tab twice a day [Active]; Tessalon Perles 100 mg Oral cap 2 caps 3 times per day for Cough [Active]; Xarelto 20 mg Oral tab 1 tab once daily [Active]; - PMHx: 04:22 ADD/ADHD; Arthritis; Atrial Fib; COPD; Depression; GERD; Hypertension; Polyps Colon; tl2 Polyps Stomach; Rheumatoid Arthritis; Staph Infection Left Great Toe; - Immunization history:: Adult Immunizations up to date. - Social history:: Smoking status: Patient uses tobacco products, smokes one-half pack cigarettes per day. - Ebola Screening: : No symptoms or risks identified at this time. Screenin:24 Abuse screen: Denies threats or abuse. Nutritional screening: No deficits noted. tl2 Tuberculosis screening: No symptoms or risk factors identified. Fall Risk None identified. Assessment: 04:45 General: Appears uncomfortable, Behavior is cooperative, appropriate for age. Pain: ea Complains of pain in chest and abdomen. Pain: Pain began 30 min ago. Neuro: Level of Consciousness is awake, alert, obeys commands, Oriented to person, place, time, situation. Cardiovascular: Patient's skin is warm and dry. Respiratory: Airway is patent Respiratory effort is even, unlabored, Respiratory pattern is regular, symmetrical, Breath sounds are coarse bilaterally. Respiratory: Parent/caregiver reports the patient having cough that is productive, hacking, persistent. GI: Abdomen is obese. Derm: Skin is pink, warm \T\ dry. 05:50 Reassessment: Patient and/or family updated on plan of care and expected duration. Pain ea level reassessed. Patient is alert, oriented x 3, equal unlabored respirations, skin warm/dry/pink. 06:45 Reassessment: Patient and/or family updated on plan of care and expected duration. Pain ea level reassessed. Patient is alert, oriented x 3, equal unlabored respirations, skin warm/dry/pink. Patient states feeling better. 07:00 Reassessment: RECD REPORT FROM FELA DUNBAR. 67YO WF P/W CP/SOB SENT FROM GROUP HOME. PT bp D/C FROM [facility] x2 DAYS AGO 2/2 PNEUMONIA AND CANCER TREATMENT. ADMIT IN PROCESS. Vital Signs: 04:22 BP 97 / 75; Pulse 128; Resp 22; Temp 97.9(O); Pulse Ox 95% on 4 lpm NC; Weight 90.72 tl2 kg; Height 5 ft. 6 in. (167.64 cm); Pain 6/10; 04:56 BP 122 / 74; Pulse 123; Resp 19; Pulse Ox 95% ; ea 05:00 BP 104 / 58; Pulse 132; Resp 18; Pulse Ox 95% ; ea 05:45 BP 123 / 85; Pulse 109; Resp 18; Pulse Ox 95% ; ea 06:15 BP 110 / 58; Pulse 94; Resp 19; Pulse Ox 99% ; ea 07:00 BP 119 / 71; Pulse 89; Resp 20; Pulse Ox 94% on 2 lpm NC; bp 07:52 BP 127 / 75; Pulse 96; Resp 23; Pulse Ox 96% ; bp 04:22 Body Mass Index 32.28 (90.72 kg, 167.64 cm) tl2 Vitals: 04:25 Cardiac Rhythm Assessment Atrial fibrillation. tl2 ED Course: 04:12 Patient arrived in ED. tl2 04:12 Jd Roque MD is Attending Physician. joan 04:14 Triage completed. tl2 04:22 Arm band placed on right wrist. tl2 04:24 Patient has correct armband on for positive identification. Bed in low position. Call tl2 light in reach. Side rails up X2. traffic monitor specialist on. Pulse ox on. NIBP on. 04:43 Fela Goel RN is Primary Nurse. ea 04:43 Inserted saline lock: 22 gauge in left antecubital area, using aseptic technique. Blood ea collected. 04:55 Oxygen administration via nasal cannula \T\ 3L/min. ea 05:04 X-ray completed. Portable x-ray completed in exam room. Patient tolerated procedure sg4 well. 05:06 XRAY Chest (1 view) In Process Unspecified. EDMS 05:29 Ester Enriquez MD is Hospitalizing Provider. joan 06:45 No provider procedures requiring assistance completed. Patient admitted, IV remains in ea place. 07:15 Report given to Zander DUNBAR. ea 07:43 Urine collected: Zuniga catheter specimen, cloudy, paris colored. Zuniga cath inserted, jb1 using sterile technique, 16 Fr., by me, balloon inflated, to gravity drainage, urine specimen collected. Administered Medications: 05:35 Drug: Lopressor 2.5 mg Route: IVP; Site: left antecubital; ea 07:21 Follow up: Response: No adverse reaction bp 05:35 Drug: Lopressor 25 mg Route: PO; ea 06:35 Follow up: Response: No adverse reaction ea 05:50 Drug: Pepcid 20 mg Route: IVP; Site: left antecubital; ea 06:36 Follow up: Response: No adverse reaction ea 05:55 Drug: Lopressor 2.5 mg Route: IVP; Site: left antecubital; ea 07:22 Follow up: Response: No adverse reaction bp 05:55 Drug: SOLU-Medrol 125 mg Route: IVP; Site: left antecubital; ea 06:30 Follow up: Response: No adverse reaction ea 06:00 Drug: Xopenex 2.5 mg Route: Inhalation; ea 06:34 Drug: AtroVENT Aerosol 0.5 mg Route: Inhalation; ea 07:00 Drug: Digoxin 0.5 mg Route: IVP; Site: left forearm; bp 07:51 Follow up: Response: No adverse reaction bp 07:00 Drug: Lasix 20 mg Route: IVP; Site: left antecubital; ea 07:52 Follow up: Response: No adverse reaction bp 07:05 Drug: Zithromax 500 mg Route: IVPB; Infused Over: 1 hrs; Site: left antecubital; ea 08:11 Follow up: IV Status: Infusion continued upon admission bp 07:10 Drug: Magnesium Sulfate 2 grams Route: IVPB; Infused Over: 2 hrs; Site: left ea antecubital; 08:08 Follow up: IV Status: Infusion continued upon admission bp 07:26 CANCELLED (DOSE CHANGE): Tylenol 650 mg PO once bp 07:45 Drug: Tylenol 1000 mg Route: PO; bp 08:08 Follow up: Response: No adverse reaction bp 07:51 Drug: Zofran 4 mg Route: IVP; Site: left forearm; bp 08:09 Follow up: Response: Nausea is decreased bp Outcome: 05:30 Decision to Hospitalize by Provider. joan 07:53 Condition: stable bp 07:53 Instructed on the need for admit. 08:05 Admitted to Tele accompanied by tech, via stretcher, room 416, with oxygen, with chart, bp Report called to MERVIN DUNBAR 08:16 Patient left the ED. bp Signatures: Dispatcher [employer] EDCj Marrero1 Jd Roque MD MD cha Knox, Taylor, RN RN tl2 Fela Goel RN RN Zander De Anda, RN RN Josseline Vasquez sg4 Corrections: (The following items were deleted from the chart) 07:43 07:31 Zuniga cath inserted, using sterile technique, 18 Fr., by glove machine operator, balloon jb1 inflated, to gravity drainage, urine specimen collected. bp
--- NOTE | 2018-03-18 05:32 | EDPHYS ---
Physician Documentation [facility] Name: Marlen Santacruz Age: 67 yrs Sex: Female : 1950 Arrival Date: 03/18/2018 Time: 04:12 Bed 7 Private MD: ED Physician Jd Roque HPI: 03/18 05:23 This 67 yrs old Female presents to ER via EMS with complaints of Chest Pain, joan Shortness Of Breath. 05:23 The patient or guardian reports chest pain that is located primarily in the substernal joan area, anterior chest wall, bilaterally. Onset: just prior to arrival. The pain does not radiate. Associated signs and symptoms: Pertinent positives: cough, diaphoresis, shortness of breath. The chest pain is described as a heaviness. Modifying factors: The symptoms are alleviated by remaining still, the symptoms are aggravated by activity, breathing, cough, deep breath, exertion, movement, running, swallowing, twisting torso, walking. Severity of pain: At its worst the pain was mild moderate in the emergency department the pain has improved moderately. Historical: - Allergies: 04:22 Ciprofloxacin; tl2 04:22 Demerol; tl2 04:22 Ibuprofen; tl2 04:22 Iodine; tl2 04:22 Keflex; tl2 04:22 Levaquin; tl2 04:22 Morphine; tl2 04:22 PENICILLINS; tl2 04:22 Sporanox; tl2 - Home Meds: 04:22 amitriptyline 50 mg Oral tab 2 tabs once daily [Active]; amlodipine 10 mg tab 1 tab tl2 once daily [Active]; antacid/adán/lido 1:1:1 Swish and swallow 2 teaspoons by mouth 10 minutes before meals and every night at bedtime [Active]; Arava 20 mg Oral tab 1 tab once daily [Active]; Atrovent Inhl twice a day [Active]; Boniva 150 mg Oral tab 1 tab once moly [Active]; Brovana 15 mcg/2 mL inhalation nebu 2 mL 2 times per day [Active]; budesonide 0.25mg Oral CECX 2 caps twice a day [Active]; Cartia XT 120 mg Oral cp24 [Active]; cefpodoxime 200 mg Oral tab 1 tab every 12 hours [Active]; clonidine HCl 0.1 mg Oral tab 3 times per day [Active]; dofetilide Oral 1 cap 2 times per day [Active]; duloxetine 60 mg Oral cpDR [Active]; Eliquis 5 mg Oral tab 1 tab 2 times per day [Active]; Esbriet 267 mg Oral cap 3 caps after meals [Active]; hydralazine 50 mg Oral tab 1 tab 2 times per day [Active]; immune globul,gamma(IgG)-sorb-IgA 0 to 50 mcg/mL intravenous every 4 wks [Active]; leflunomide 10 mg Oral tab 2 tabs once daily [Active]; lisinopril 20 mg Oral tab twice a day [Active]; Lyrica Oral 1 cap [Active]; Magnesium Oxide Oral [Active]; Mucinex 600 mg Oral Ta12 1 tab every 12 hours [Active]; Nasonex 50 mcg/actuation Nasal spry once daily [Active]; [place] 10-325 mg Oral tab [Active]; omeprazole 40 mg Oral cpDR 1 cap 2 times per day [Active]; potassium chloride 10 mEq Oral cpER 2 caps 2 times per day [Active]; prednisone 10 mg Oral tab once daily [Active]; Prednisone Oral [Active]; propafenone 225 mg Oral tab [Active]; sulfasalazine 500 mg Oral tab 1 tab twice a day [Active]; sulfasalazine 500 mg Oral tab twice a day [Active]; Tessalon Perles 100 mg Oral cap 2 caps 3 times per day for Cough [Active]; Xarelto 20 mg Oral tab 1 tab once daily [Active]; - PMHx: 04:22 ADD/ADHD; Arthritis; Atrial Fib; COPD; Depression; GERD; Hypertension; Polyps Colon; tl2 Polyps Stomach; Rheumatoid Arthritis; Staph Infection Left Great Toe; - Immunization history:: Adult Immunizations up to date. - Social history:: Smoking status: Patient uses tobacco products, smokes one-half pack cigarettes per day. - Ebola Screening: : No symptoms or risks identified at this time. ROS: 05:23 Constitutional: Negative for fever, chills, and weight loss, Eyes: Negative for injury, joan pain, redness, and discharge, ENT: Negative for injury, pain, and discharge, Neck: Negative for injury, pain, and swelling, Abdomen/GI: Negative for abdominal pain, nausea, vomiting, diarrhea, and constipation, Back: Negative for injury and pain, : Negative for injury, bleeding, discharge, and swelling, MS/Extremity: Negative for injury and deformity, Skin: Negative for injury, rash, and discoloration, Neuro: Negative for headache, weakness, numbness, tingling, and seizure. 05:23 Cardiovascular: Positive for chest pain, palpitations. 05:23 Respiratory: Positive for cough, shortness of breath, wheezing, inspiratory, expiratory. Exam: 05:23 Constitutional: This is a well developed, well nourished patient who is awake, alert, joan and in no acute distress. Head/Face: Normocephalic, atraumatic. Eyes: Pupils equal round and reactive to light, extra-ocular motions intact. Lids and lashes normal. Conjunctiva and sclera are non-icteric and not injected. Cornea within normal limits. Periorbital areas with no swelling, redness, or edema. ENT: Nares patent. No nasal discharge, no septal abnormalities noted. Tympanic membranes are normal and external auditory canals are clear. Oropharynx with no redness, swelling, or masses, exudates, or evidence of obstruction, uvula midline. Mucous membranes moist. Neck: Trachea midline, no thyromegaly or masses palpated, and no cervical lymphadenopathy. Supple, full range of motion without nuchal rigidity, or vertebral point tenderness. No Meningismus. Chest/axilla: Normal chest wall appearance and motion. Nontender with no deformity. No lesions are appreciated. Abdomen/GI: Soft, non-tender, with normal bowel sounds. No distension or tympany. No guarding or rebound. No evidence of tenderness throughout. Back: No spinal tenderness. No costovertebral tenderness. Full range of motion. Female : Normal external genitalia. Skin: Warm, dry with normal turgor. Normal color with no rashes, no lesions, and no evidence of cellulitis. MS/ Extremity: Pulses equal, no cyanosis. Neurovascular intact. Full, normal range of motion. Neuro: Awake and alert, GCS 15, oriented to person, place, time, and situation. Cranial nerves II-XII grossly intact. Motor strength 5/5 in all extremities. Sensory grossly intact. Cerebellar exam normal. Normal gait. Psych: Awake, alert, with orientation to person, place and time. Behavior, mood, and affect are within normal limits. 05:23 Cardiovascular: Rate: tachycardic, Rhythm: regular, Pulses: Pulses are 4+ in bilateral radial, brachial, femoral, popliteal, posterior tibial and and dorsalis pedis arteries.. Heart sounds: normal, murmur, not appreciated. Vital Signs: 04:22 BP 97 / 75; Pulse 128; Resp 22; Temp 97.9(O); Pulse Ox 95% on 4 lpm NC; Weight 90.72 tl2 kg; Height 5 ft. 6 in. (167.64 cm); Pain 6/10; 04:56 BP 122 / 74; Pulse 123; Resp 19; Pulse Ox 95% ; ea 05:00 BP 104 / 58; Pulse 132; Resp 18; Pulse Ox 95% ; ea 05:45 BP 123 / 85; Pulse 109; Resp 18; Pulse Ox 95% ; ea 06:15 BP 110 / 58; Pulse 94; Resp 19; Pulse Ox 99% ; ea 07:00 BP 119 / 71; Pulse 89; Resp 20; Pulse Ox 94% on 2 lpm NC; bp 07:52 BP 127 / 75; Pulse 96; Resp 23; Pulse Ox 96% ; bp 04:22 Body Mass Index 32.28 (90.72 kg, 167.64 cm) tl2 MDM: 04:12 Patient medically screened. [facility] 05:33 Data reviewed: vital signs, nurses notes, lab test result(s), EKG, radiologic studies. [facility] 03/18 04:44 Order name: Basic Metabolic Panel; Complete Time: 05:55 03/18 04:44 Order name: CBC with Diff; Complete Time: 05:22 03/18 04:44 Order name: LFT's; Complete Time: 05:55 03/18 04:44 Order name: Magnesium; Complete Time: 05:55 03/18 04:44 Order name: NT PRO-BNP; Complete Time: 05:55 03/18 04:44 Order name: PT-INR; Complete Time: 05:22 03/18 04:44 Order name: Troponin (emerg Dept Use Only); Complete Time: 05:55 03/18 05:21 Order name: TSH; Complete Time: 05:55 [facility] 03/18 05:23 Order name: Blood Culture Adult (2) nv 03/18 05:23 Order name: Type And Screen; Complete Time: 06:57 nv 03/18 05:44 Order name: CBC with Automated Diff EDMS 03/18 05:44 Order name: CBC with Automated Diff EDMS 03/18 05:44 Order name: Comprehensive Metabolic Panel EDMS 03/18 05:44 Order name: Comprehensive Metabolic Panel EDMS 03/18 04:44 Order name: XRAY Chest (1 view) ea 03/18 05:44 Order name: Protime (+INR) EDMS 03/18 05:44 Order name: Protime (+INR) EDMS 03/18 05:44 Order name: PTT, Activated Partial Thromb EDMS 03/18 05:44 Order name: PTT, Activated Partial Thromb EDMS 03/18 05:44 Order name: Chest Single View EDMS 03/18 05:44 Order name: Chest Single View EDMS 03/18 06:15 Order name: ABO/RH no charge; Complete Time: 06:21 EDKY 03/18 07:40 Order name: Urine Dipstick--Ancillary (enter results) 03/18 04:44 Order name: EKG; Complete Time: 04:44 ea 03/18 04:44 Order name: Cardiac monitoring; Complete Time: 05:01 ea 03/18 04:44 Order name: EKG - Nurse/Tech; Complete Time: 05:01 ea 03/18 04:44 Order name: IV Saline Lock; Complete Time: 05:01 ea 03/18 04:44 Order name: Labs collected and sent; Complete Time: 05:01 ea 03/18 04:44 Order name: O2 Per Protocol; Complete Time: 05:01 ea 03/18 04:44 Order name: O2 Sat Monitoring; Complete Time: 05:01 ea 03/18 05:44 Order name: CONS Pharmacy Consult EDKY 03/18 05:44 Order name: NPO EDMS Administered Medications: 05:35 Drug: Lopressor 2.5 mg Route: IVP; Site: left antecubital; ea 07:21 Follow up: Response: No adverse reaction bp 05:35 Drug: Lopressor 25 mg Route: PO; ea 06:35 Follow up: Response: No adverse reaction ea 05:50 Drug: Pepcid 20 mg Route: IVP; Site: left antecubital; ea 06:36 Follow up: Response: No adverse reaction ea 05:55 Drug: Lopressor 2.5 mg Route: IVP; Site: left antecubital; ea 07:22 Follow up: Response: No adverse reaction bp 05:55 Drug: SOLU-Medrol 125 mg Route: IVP; Site: left antecubital; ea 06:30 Follow up: Response: No adverse reaction ea 06:00 Drug: Xopenex 2.5 mg Route: Inhalation; ea 06:34 Drug: AtroVENT Aerosol 0.5 mg Route: Inhalation; ea 07:00 Drug: Digoxin 0.5 mg Route: IVP; Site: left forearm; bp 07:51 Follow up: Response: No adverse reaction bp 07:00 Drug: Lasix 20 mg Route: IVP; Site: left antecubital; ea 07:52 Follow up: Response: No adverse reaction bp 07:05 Drug: Zithromax 500 mg Route: IVPB; Infused Over: 1 hrs; Site: left antecubital; ea 08:11 Follow up: IV Status: Infusion continued upon admission bp 07:10 Drug: Magnesium Sulfate 2 grams Route: IVPB; Infused Over: 2 hrs; Site: left ea antecubital; 08:08 Follow up: IV Status: Infusion continued upon admission bp 07:26 CANCELLED (DOSE CHANGE): Tylenol 650 mg PO once bp 07:45 Drug: Tylenol 1000 mg Route: PO; bp 08:08 Follow up: Response: No adverse reaction bp 07:51 Drug: Zofran 4 mg Route: IVP; Site: left forearm; bp 08:09 Follow up: Response: Nausea is decreased bp Disposition: 03/18/18 05:30 Hospitalization ordered by Ester Enriquez for Inpatient Admission. Preliminary diagnosis are Chest pain, unspecified, Atrial fibrillation and flutter, Chronic obstructive pulmonary disease with (acute) exacerbation, Pancytopenia, Pneumonia due to other specified bacteria. - Bed requested for Telemetry/MedSurg (Inpatient). - Status is Inpatient Admission. bp - Condition is Fair. - Problem is new. - Symptoms have improved. UTI on Admission? Yes Signatures: Dispatcher [employer] EDMS Jd Roque MD MD cha Garcia, Cindy, RN Jocelin Low RN RN tl2 Fela Goel RN RN ea Peltier, Brian RN RN bp Corrections: (The following items were deleted from the chart) 05:34 05:30 Hospitalization Ordered by Ester Enriquez MD for Observation. Preliminary [facility] diagnosis is Chest pain, unspecified; Atrial fibrillation and flutter; Chronic obstructive pulmonary disease with (acute) exacerbation. Bed requested for Telemetry/MedSurg (observation). Status is Observation. Condition is Fair. Problem is new. Symptoms have improved. UTI on Admission? No. joan 05:41 05:34 03/18/2018 05:30 Hospitalization Ordered by Ester Enriquez MD for Observation. [facility] Preliminary diagnosis is Chest pain, unspecified; Atrial fibrillation and flutter; Chronic obstructive pulmonary disease with (acute) exacerbation; Pancytopenia. Bed requested for Telemetry/MedSurg (observation). Status is Observation. Condition is Fair. Problem is new. Symptoms have improved. UTI on Admission? No. joan 05:59 05:41 03/18/2018 05:30 Hospitalization Ordered by Ester Enriquez MD for Observation. [facility] Preliminary diagnosis is Chest pain, unspecified; Atrial fibrillation and flutter; Chronic obstructive pulmonary disease with (acute) exacerbation; Pancytopenia. Bed requested for Telemetry/MedSurg (observation). Status is Observation. Condition is Fair. Problem is new. Symptoms have improved. UTI on Admission? Yes. [facility] 06:00 05:59 03/18/2018 05:30 Hospitalization Ordered by Ester Enriquez MD for Inpatient joan Admission. Preliminary diagnosis is Chest pain, unspecified; Atrial fibrillation and flutter; Chronic obstructive pulmonary disease with (acute) exacerbation; Pancytopenia. Bed requested for Telemetry/MedSurg (Inpatient). Status is Inpatient Admission. Condition is Fair. Problem is new. Symptoms have improved. UTI on Admission? Yes. [facility] 06:12 06:00 03/18/2018 05:30 Hospitalization Ordered by Ester Enriquez MD for Inpatient cg Admission. Preliminary diagnosis is Chest pain, unspecified; Atrial fibrillation and flutter; Chronic obstructive pulmonary disease with (acute) exacerbation; Pancytopenia; Pneumonia due to other specified bacteria. Bed requested for Telemetry/MedSurg (Inpatient). Status is Inpatient Admission. Condition is Fair. Problem is new. Symptoms have improved. UTI on Admission? Yes. joan 07:26 07:13 Tylenol 650 mg PO once ordered. bp bp 08:16 06:12 03/18/2018 05:30 Hospitalization Ordered by Ester Enriquez MD for Inpatient bp Admission. Preliminary diagnosis is Chest pain, unspecified; Atrial fibrillation and flutter; Chronic obstructive pulmonary disease with (acute) exacerbation; Pancytopenia; Pneumonia due to other specified bacteria. Bed requested for Telemetry/MedSurg (Inpatient). Status is Inpatient Admission. Condition is Fair. Problem is new. Symptoms have improved. UTI on Admission? Yes.
[2018-03-18] MEDS ORDERED: METHYLPREDNISOLONE 125 MG INJ ONE (05:36)
[2018-03-18] MEDS ORDERED: METOPROLOL TARTRATE 5 MG/5 ML INJ IV ONE (05:37)
[2018-03-18] MEDS ORDERED: IPRATROPIUM BROM 0.5MG/2.5ML ONE (05:37)
[2018-03-18] MEDS ORDERED: LEVALBUTEROL 1.25 MG/3 ML NEB ONE (05:37)
[2018-03-18] MEDS ORDERED: METOPROLOL TAR 25 MG TAB ONE (05:37)
[2018-03-18] MEDS ORDERED: FAMOTIDINE 20 MG/2 ML VIAL IV ONE (05:38)
[2018-03-18] MEDS ORDERED: ONDANSETRON 4 MG/2 ML VIAL IV PRN (05:39)
[2018-03-18] MEDS ORDERED: ACETAMINOPHEN 500 MG TAB PO PRN (05:39)
[2018-03-18] MEDS ORDERED: Magnesium Sulfate 2gm IVPB 2 G/50 ML BAG IV ONE ×2 (05:39→07:00)
[2018-03-18] MEDS ORDERED: MORPHINE 2 MG/ML SYR IV PRN (05:39)
[2018-03-18 05:40] LABS: ALT/SGPT 16 U/L (12-78); AST/SGOT 14 U/L (15-37); Albumin 2.6 g/dL (3.4-5.0); Alkaline Phosphatase 89 U/L (45-117); BUN Blood Urea Nitrogen 8 mg/dL (7-18); Bicarbonate 26 mmol/L (21-32); Bilirubin Direct 0.3 mg/dL (0-0.2); Bilirubin Total 0.7 mg/dL (0.2-1.0); Glucose Level 95 mg/dL (74-106); NT PRO-BNP 1190 pg/mL (<125); Potassium 3.5 mmol/L (3.5-5.1); Protein, Total 6.1 g/dL (6.4-8.2); Sodium Level 134 mmol/L (136-145); Troponin (Emerg Dept Use Only) 0.02 ng/mL (0.0-0.045)
[2018-03-18 05:42] LABS: Magnesium 1.4 mg/dL (1.8-2.4)
[2018-03-18] MEDS ORDERED: PIPER/TAZO/NS 3.375gm 3.375 GM/100 ML BAG IVPB SCH (06:00)
[2018-03-18] MEDS ORDERED: NA CHLORIDE 0.9% 1,000 ML IV SCH (06:00)
[2018-03-18] MEDS ORDERED: HYDROCORTISONE SUC 100 MG INJ IV ONE (06:30)
[2018-03-18] MEDS ORDERED: FUROSEMIDE 20 MG/ 2ML VIAL ONE (06:59)
[2018-03-18] MEDS ORDERED: DIGOXIN 0.25 MG/ML AMP ONE (06:59)
[2018-03-18] MEDS ORDERED: AZITHROMYCIN 500 MG/250 ML BAG ONE (07:00)
[2018-03-18] MEDS ORDERED: Meropenem 1 GM/100 ML BAG ONE (07:00)
[2018-03-18] MEDS ORDERED: ACETAMINOPHEN 500 MG TAB ONE (07:26)
[2018-03-18] MEDS ORDERED: ONDANSETRON 4 MG/2 ML VIAL ONE (07:57)
[2018-03-18] MEDS ORDERED: Meropenem 500 MG VIAL IV SCH (09:00)
[2018-03-18] MEDS ORDERED: AZITHROMYCIN 250 MG TAB PO SCH (09:00)
[2018-03-18 09:01] VITALS: BMI 34.2
--- NOTE | 2018-03-18 09:37 | P.HP ---
Certification for Inpatient Patient admitted to: Inpatient With expected LOS: >2 Midnights Patient will require the following post-hospital care: None Practitioner: I am a practitioner with admitting privileges, knowledge of patient current condition, hospital course, and medical plan of care. Services: Services provided to patient in accordance with Admission requirements found in Title 42 Section 412.3 of the Code of Federal Regulations Patient History Date of Service: 03/18/18 Reason for admission: Upper respiratory tract infection History of Present Illness: Patient is a 67-year-old female came to the hospital with a upper respiratory tract infection. Patient was coughing and congested and having greenish discolored sputum. She was recent discharged from [facility] in [place]. She was there for about 3 weeks. She has been diagnosed with lung cancer, but apparently she had will nodule removed and is getting chemotherapy. She just recently got her chemotherapy this past . She has some leukopenia as well as anemia. Will recheck her labs and transfuse her accordingly. She also is in atrial fibrillation with rapid ventricular response. Will get her rate controlled and diurese as needed. She had an echo done a few months ago with normal ejection fraction. Will get Cardiology consultation as well. She is allergic to me numerous antibiotics so will cover her with Merrem and azithromycin. She will be admitted to the hospital for further treatment. Allergies meperidine HCl [From Demerol] Allergy (Intermediate, Verified 10/31/17 22:53) Itching/Hives/Rash cephalexin [From Keflex] Allergy (Verified 10/31/17 22:55) Itching/Hives/Rash ciprofloxacin Allergy (Verified 11/01/17 19:32) Hives/Rash iodine Allergy (Verified 12/03/17 11:14) Itching itraconazole [From Sporanox] Allergy (Verified 10/31/17 22:57) Hives/Rash morphine Allergy (Verified 10/31/17 22:56) Itching/Hives/Rash Penicillins Allergy (Verified 10/31/17 22:57) Itching/Hives/Rash Home Medications: Amlodipine Besylate 10 mg PO DAILY 01/27/18 Antacid/Diphen/Lido 1:1:1 10 ml PO ACHS PRN 01/27/18 Apixaban [Eliquis *] 5 mg PO BID 01/27/18 Benzonatate 200 mg PO TID PRN 01/27/18 Clonidine HCl [Catapres] 0.1 mg PO TID PRN 01/27/18 Diltiazem HCl [Diltiazem 24Hr Cd] 120 mg PO DAILY 01/27/18 Dofetilide 500 mcg PO BID 01/27/18 Duloxetine [Cymbalta *] 60 mg PO DAILY 01/27/18 Guaifenesin [Mucinex] 600 mg PO BID 01/27/18 Hydralazine [Apresoline*] 50 mg PO DAILY 01/27/18 Leflunomide 20 mg PO DAILY 01/27/18 Lisinopril 20 mg PO BID 01/27/18 Magnesium Oxide [Mag-Oxide] 400 mg PO DAILY 01/27/18 Mometasone Furoate [Nasonex] 2 spray IH DAILY 01/27/18 Omeprazole [Prilosec] 40 mg PO DAILY 01/27/18 Potassium Chloride 20 meq PO DAILY 01/27/18 Pregabalin [Lyrica*] 25 mg PO DAILY 01/27/18 Sulfasalazine [Azulfidine] 1,000 mg PO BID 01/27/18 predniSONE [Prednisone] 10 mg PO DAILY 01/27/18 Umeclidinium [place] [Incruse Ellipta] 62.5 mcg IH DAILY #1 blst.w.dev 02/02/18 - Past Medical/Surgical History Has patient received pneumonia vaccine in the past: No Diabetic: No -: Rheumatoid Arthritis -: Interstitial Lung Disease -: Obstructive sleep apnea -: [place] -: Osteopenia -: Hyperlipidemia -: COPD, end-stage, oxygen/steroid dependent -: Atrial fibrillation on chronic anti coagulation -: GERD with hiatal hernia -: Depression -: Recently diagnosed lung cancer -: depression -: Tonsilectomy -: Appendectomy, Kelle -: Hysterectomy -: Multiple ganglion cyst removal -: Knee Replacement rohini -: Tendon repair bilateral wrist -: Knuckle removal in toes on R foot/hands -: Multiple bursectomy excision Psychosocial/ Personal History: Patient is a . - Family History Sister Medical History: Hypertension, Lung disease, Other (see notes) Notes: rotoscoliasis, sleep apnea, hyperlipidemia Brother Medical History: Hypertension, Diabetes, Other (see notes) Notes: gout, hyperlipidemia Mother Medical History: Hypertension, Cancer Notes: klatskin tumor Father Medical History: Heart disease, Hypertension, Lung disease, Diabetes, Cancer, Other (see notes) Notes: lung cancer, gout - Social History Smoking Status: Former smoker Alcohol use: No CD- Drugs: No Caffeine use: Yes Place of Residence: Home Review of Systems 10-point ROS is otherwise unremarkable Physical Examination - Vital Signs Temperature: 98.6 F Blood Pressure: 117/66 Pulse: 90 Respirations: 18 Pulse Ox (%): 96 - Physical Exam General: Alert, In no apparent distress, Oriented x3 HEENT: Atraumatic, PERRLA, Mucous membr. moist/pink, EOMI, Sclerae nonicteric Neck: Supple, 2+ carotid pulse no bruit, No LAD, Without JVD or thyroid abnormality Respiratory: Clear to auscultation bilaterally, Normal air movement Cardiovascular: Regular rate/rhythm, Normal S1 S2, No murmurs Gastrointestinal: Normal bowel sounds, Soft and benign, Non-distended, No tenderness Musculoskeletal: No clubbing, No swelling, No tenderness Integumentary: No rashes Neurological: Normal gait, Normal speech, Normal strength at 5/5 x4 extr, Normal tone, Sensation intact, Cranial nerves 3-12 intact, Normal affect Lymphatics: No axilla or inguinal lymphadenopathy - Studies Laboratory Data (last 24 hrs) 03/18/18 04:50: PT 18.2 H, INR 1.54 03/18/18 04:50: WBC 2.0 L, Hgb 9.4 L, Hct 28.1 L, Plt Count 148 L 03/18/18 04:50: Sodium 134 L, Potassium 3.5, BUN 8, Creatinine 0.61, Glucose 95 , Magnesium 1.4 L*, Total Bilirubin 0.7, AST 14 L, ALT 16, Alkaline Phosphatase 89 Assessment & Plan - Problems (Diagnosis) (1) Leukopenia Current Visit: Yes Status: Acute (2) Anemia Current Visit: Yes Status: Acute (3) Pneumonia Current Visit: Yes Status: Acute (4) Atrial fibrillation with RVR Onset Date: 10/21/16 Current Visit: No Status: Acute (5) Obesity Current Visit: No Status: Chronic Qualifiers: (6) Pulmonary fibrosis Onset Date: 10/21/16 Current Visit: No Status: Chronic (7) Rheumatoid arthritis Onset Date: 10/21/16 Current Visit: No Status: Chronic Qualifiers: (8) Lung cancer Current Visit: No Status: Suspected Qualifiers: - Plan 1. Continue with IV antibiotics-meropenem and azithromycin; may add vancomycin if she has fever 2. Awaiting sputum and blood culture 3. Repeat chest x-ray 4. Will proceed with CT scan of the chest if chest x-ray findings are not improving 5. Pulmonary consultation along with cardiology consultation 6. Continue with nebs as needed 7. O2 per protocol 8. Continue with gentle hydration 9. Repeat labs including CBC and renal function in a.m; patient may benefit from transfusion and if white count goes down then may need to do Neupogen or Neulasta 10. GI and DVT prophylaxis Discharge Plan: Home Plan to discharge in: Greater than 2 days - Advance Directives Does patient have a Living Will: No Does patient have a Durable POA for Healthcare: Yes - Code Status/Comfort Care Code Status Assessed: Yes Code Status: Full Code Critical Care: No Time Spent Managing PTS Care (In Minutes): 50
[2018-03-18] MEDS ORDERED: PNEUMOCOCCAL VACCINE 0.5 ML IMVAC ONE (10:00)
[2018-03-18] MEDS: Meropenem 500 MG in NA CHLORIDE 0.9% 100 ML IV SCH ×2 (10:53→16:56)
[2018-03-18 11:55] LABS: Urine Blood NEGATIVE (NEG); Urine Glucose NEGATIVE (NEG); Urine Protein 2+ (NEG)
--- NOTE | 2018-03-18 12:18 | RAD REPORT ---
EXAM DESCRIPTION: RAD - Chest Single View - 03/18/2018 5:06 am CLINICAL HISTORY: COUGH Chest pain. COMPARISON: Chest Single View dated 02/03/2018; Chest Single View dated 01/31/2018; Chest Single View dated 01/27/2018; Chest Single View dated 12/07/2017 FINDINGS: Portable technique limits examination quality. Poorly defined airspace opacities in the right lung base are present most compatible with pneumonia. Interstitial lung markings are prominent bilaterally, likely chronic. The heart is mildly prominent i n size. Left-sided port catheter its tip in the SVC. No displaced fractures.Hardware plate is present cervical spine. IMPRESSION: Ill-defined right basilar lung opacities most compatible with pneumonia.
[2018-03-18 16:55] VITALS: O2SAT 95
--- NOTE | 2018-03-18 17:27 | EKG ---
Test Date: 2018-03-18 Test Time: 04:20:38 Trim Master Operator: GEORGE MEASUREMENT RESULTS: Intervals: Rate: 124 DC: 148 QRSD: 78 QT: 318 QTc: 456 [place]: P: 57 DC: 148 QRS: 33 T: 82 INTERPRETIVE STATEMENTS: Sinus tachycardia with premature atrial complexes Otherwise normal ECG Compared to ECG 01/28/2018 07:37:38 Atrial premature complex(es) now present Atrial fibrillation no longer present ST (T wave) deviation no longer present Electronically Signed On 03-18-18 17:17:57 [facility] by Jarod Franco
[2018-03-18 17:32] VITALS: BP 124/65; TEMP 97.6
--- NOTE | 2018-03-19 03:16 | CON ---
Date of Consultation: 03/18/[address] Rahman's service on 03/18/2018. The patient was seen on 03/18/2018. History Of Present Illness: She was actually being discharged soon after I saw her. She came in wit h upper respiratory tract symptoms with shortness of breath, cough, was found to have possible pneumo herb. On her EKGs, she had sinus tachycardia with PACs. Ms. Santacruz has a history of CHF, atrial fibr illation, status post ablation, pacemaker. She is now on dofetilide and Eliquis for that. She takes Cartia, inhalers, clonidine, Norvasc, and hydralazine for her COPD as well as hypertension. She is fairly asymptomatic. Her breathing has improved. She is in sinus tach. Past Medical History: As stated above. Allergies: DEMEROL, CIPROFLOXACIN, IODINE. Review of Systems: Negative. Social History: Negative. Family History: Noncontributory. Medications: As listed earlier. Physical Examination: General: Ms. Santacruz was anxious, but no acute distress. HEENT: Negative. Neck: Supple with no bruit. Chest: Clear to auscultation and percussion. Cardiac: Revealed tachycardia with ectopy. Abdomen: Obese, benign. Extremities: Revealed no clubbing, cyanosis, or edema. Diagnostic Data: As stated earlier. Impression And Plan: 1.Atrial fibrillation resolved on dofetilide and Eliquis. 2.Hypertension, on clonidine, Norvasc, Cartia, and hydralazine. 3.Chronic obstructive pulmonary disease, on inhalers. 4.Possible pneumonia, on antibiotics. She will be taking p.o. antibiotics when she goes home. I wo uld like to see Ms. Santacruz in the office in the next week or two. ABEL/KSENIA Voice ID: [id number] Report ID: [id number]
== END 2018-03-18 18:29 | DRG 194 ==
LOC: ER 04:08 → ERHOLD 05:39 → 4TH 08:07
PROVIDERS: ADMIT Hospitalist; ATTEND Family Medicine
DX: J18.9 Pneumonia, unspecified organism (principal); C34.90 Malignant neoplasm of unspecified part of unspecified bronchus or lung; I48.91 Unspecified atrial fibrillation; Z79.01 Long term (current) use of anticoagulants; Z88.1 Allergy status to other antibiotic agents; Z88.5 Allergy status to narcotic agent; Z88.0 Allergy status to penicillin; M06.9 Rheumatoid arthritis, unspecified; G47.33 Obstructive sleep apnea (adult) (pediatric); M85.80 Other specified disorders of bone density and structure, unspecified site; E78.5 Hyperlipidemia, unspecified; J44.9 Chronic obstructive pulmonary disease, unspecified; K21.9 Gastro-esophageal reflux disease without esophagitis; K44.9 Diaphragmatic hernia without obstruction or gangrene; F32.9 Major depressive disorder, single episode, unspecified; Z96.653 Presence of artificial knee joint, bilateral; Z87.891 Personal history of nicotine dependence; D72.819 Decreased white blood cell count, unspecified; D64.9 Anemia, unspecified; J84.10 Pulmonary fibrosis, unspecified; Z95.0 Presence of cardiac pacemaker
CPT/HCPCS: 36415; 51702; 71045; 80048; 80076; 81003; 83735; 83880; 84145; 84443; 84484; 85025; 85610; 86850; 86900; 86901; 87040; 93005; 99285; J0456; J1160; J1940; J2185; J2405; J2930; J3475; J7030

== ENCOUNTER 2018-05-01 08:51 | Observation (INO) | payer OTHER ==
--- OUTSIDE RECORDS SUMMARY | 2018-05-01 08:53 | XMS REPORT ---
:1950 [facility] Organization [facility] Address [address] [place] [address] Care Team Providers Name Role Phone JENNIFER [...] UREA NITROGEN (BEAKER) 20 mg/dL 7-21 (test rags=732) CREATININE (BEAKER) (test 0.80 mg/dL 0.57-1.25 Specimen moderately fygo=552) hemolyzed EGFR (BEAKER) (test 72 mL/min/1.73 sq m ESTIMATED GFR IS NOT ncob=6307) ACCURATE CREATININE CLEARANCE IN PREDICTING GLOMERULAR FILTRATION RATE. ESTIMATED GFR IS NOT APPLICABLE FOR DIALYSIS PATIENTS. [id number] 15:50:00 Test Item Value Reference Range Comments BLOOD UREA NITROGEN (BEAKER) (test rxkk=320) 14 mg/dL 7-21 [id number] 15:50:00 Test Item Value Reference Range Comments CREATININE (BEAKER) (test 0.78 mg/dL 0.57-1.25 kslg=174) EGFR (BEAKER) (test 74 mL/min/1.73 sq m ESTIMATED GFR IS NOT lexk=1030) ACCURATE CREATININE CLEARANCE IN PREDICTING GLOMERULAR FILTRATION RATE. ESTIMATED GFR IS NOT APPLICABLE FOR DIALYSIS PATIENTS. [id number] 14:55:00 Test Item Value Reference Range Comments BLOOD UREA NITROGEN (BEAKER) (test gsuf=689) 11 mg/dL 7-21 [id number] 14:55:00 Test Item Value Reference Range Comments CREATININE (BEAKER) (test 0.65 mg/dL 0.57-1.25 uefb=983) EGFR (BEAKER) (test 91 mL/min/1.73 sq m ESTIMATED GFR IS NOT emui=4396) ACCURATE CREATININE CLEARANCE IN PREDICTING GLOMERULAR FILTRATION RATE. ESTIMATED GFR IS NOT APPLICABLE FOR DIALYSIS PATIENTS. BUN AND [id number] 15:59:00 Test Item Value Reference Range Comments BLOOD UREA NITROGEN 10 mg/dL 7-21 (BEAKER) (test wiwt=600) CREATININE (BEAKER) (test 0.65 mg/dL 0.57-1.25 ytoo=931) EGFR (BEAKER) (test 91 mL/min/1.73 sq m ESTIMATED GFR IS NOT pvnb=7900) ACCURATE CREATININE CLEARANCE IN PREDICTING GLOMERULAR FILTRATION RATE. ESTIMATED GFR IS NOT APPLICABLE FOR DIALYSIS PATIENTS. [id number] 14:45:00 Test Item Value Reference Range Comments BLOOD UREA NITROGEN (BEAKER) (test ipml=011) 13 mg/dL 7-21 [id number] 14:45:00 Test Item Value Reference Range Comments CREATININE (BEAKER) (test 0.74 mg/dL 0.57-1.25 yotf=854) EGFR (BEAKER) (test 79 mL/min/1.73 sq m ESTIMATED GFR IS NOT kdfl=7580) ACCURATE CREATININE CLEARANCE IN PREDICTING GLOMERULAR FILTRATION RATE. ESTIMATED GFR IS NOT APPLICABLE FOR DIALYSIS PATIENTS. BUN AND [id number] 14:55:00 Test Item Value Reference Range Comments BLOOD UREA NITROGEN 13 mg/dL 7-21 (BEAKER) (test odls=246) CREATININE (BEAKER) (test 0.69 mg/dL 0.57-1.25 insa=892) EGFR (BEAKER) (test 85 mL/min/1.73 sq m ESTIMATED GFR IS NOT zmet=6652) ACCURATE CREATININE CLEARANCE IN PREDICTING GLOMERULAR FILTRATION RATE. ESTIMATED GFR IS NOT APPLICABLE FOR DIALYSIS PATIENTS. [id number] 17:24:00 Test Item Value Reference Range Comments BLOOD UREA NITROGEN (BEAKER) (test ojpz=690) 12 mg/dL 7-21 [id number] 17:24:00 Test Item Value Reference Range Comments CREATININE (BEAKER) (test 0.67 mg/dL 0.57-1.25 xfvx=371) EGFR (BEAKER) (test 89 mL/min/1.73 sq m ESTIMATED GFR IS NOT qxfh=2138) ACCURATE CREATININE CLEARANCE IN PREDICTING GLOMERULAR FILTRATION RATE. ESTIMATED GFR IS NOT APPLICABLE FOR DIALYSIS PATIENTS.
--- OUTSIDE RECORDS SUMMARY | 2018-05-01 08:53 | XMS REPORT | Clinical Summary ---
:1950 Author Organization [facility] Address [address] [place] [address] Care Team Providers Name Role Phone Unavailable [...] 3 (three) times daily. Hospital, Clinic, or Other Ordered Dose Route Frequency Start Date End Date Status Facility Administered Medication acetaminophen (TYLENOL) 650 mg Oral Once 09/09/2013 Active tablet 650 mg sodium chloride 0.9% (NS) IV Continuous 04/04/2014 Active infusion sodium chloride 0.9% (NS) IV Once 03/29/2016 Active infusion sodium chloride 0.9% (NS) IV Continuous 05/30/2016 Active infusion heparin (PF) injection 500 Units Cath Once 05/30/2016 Active syringe 500 Units sodium chloride 0.9% (NS) IV Once 12/14/2016 Active infusion immune globulin (human) 45 g IV Once 06/13/2017 Active (PRIVIGEN) injection 45 g immune globulin (human) 45 g IV Once 05/16/2017 05/16/2017 Ended and maltose (OCTAGAM) injection 45 g sodium chloride 0.9% (NS) IV Once 05/16/2017 05/16/2017 Ended infusion diphenhydrAMINE (BENADRYL) 25 mg IV Once 05/16/2017 05/16/2017 Ended injection 25 mg sodium chloride 0.9% (NS) IV Once 06/13/2017 06/13/2017 Ended infusion diphenhydrAMINE (BENADRYL) 25 mg IV Once 06/13/2017 06/13/2017 Ended injection 25 mg immune globulin (human) 45 g IV Once 06/13/2017 06/13/2017 Ended (PRIVIGEN) injection 45 g immune globulin (human) 45 g IV Once 07/11/2017 07/11/2017 Ended and maltose (OCTAGAM) injection 45 gIndications: CIDP (chronic inflammatory demyelinating polyneuropathy) (HCC) sodium chloride 0.9% (NS) IV Once 07/11/2017 07/11/2017 Ended infusionIndications: CIDP (chronic inflammatory demyelinating polyneuropathy) (HCC) diphenhydrAMINE (BENADRYL) 25 mg IV Once 07/11/2017 07/11/2017 Ended injection 25 mgIndications: CIDP (chronic inflammatory demyelinating polyneuropathy) (HCC) immune globulin (human) 45 g IV Once 08/10/2017 08/10/2017 Ended and maltose (OCTAGAM) injection 45 gIndications: CIDP (chronic inflammatory demyelinating polyneuropathy) (HCC) sodium chloride 0.9% (NS) IV Once 08/10/2017 08/10/2017 Ended infusion diphenhydrAMINE (BENADRYL) 25 mg IV Once 08/10/2017 08/10/2017 Ended injection 25 mg immune globulin (human) 45 g IV Once 09/12/2017 09/12/2017 Ended and maltose (OCTAGAM) injection 45 gIndications: CIDP (chronic inflammatory demyelinating polyneuropathy) (HCC) sodium chloride 0.9% (NS) IV Once 09/12/2017 09/12/2017 Ended infusion diphenhydrAMINE (BENADRYL) 25 mg IV Once 09/12/2017 09/12/2017 Ended injection 25 mg immune globulin (human) 40 g IV Once 10/12/2017 10/12/2017 Ended and maltose (OCTAGAM) injection 40 gIndications: CIDP (chronic inflammatory demyelinating polyneuropathy) (HCC) sodium chloride 0.9% (NS) IV Once 10/12/2017 10/12/2017 Ended infusion diphenhydrAMINE (BENADRYL) 25 mg IV Once 10/12/2017 10/12/2017 Ended injection 25 mg immune globulin (human) 40 g IV Once 11/09/2017 11/09/2017 Ended and maltose (OCTAGAM) injection 40 gIndications: CIDP (chronic inflammatory demyelinating polyneuropathy) (HCC) sodium chloride 0.9% (NS) IV Once 11/09/2017 11/09/2017 Ended infusion diphenhydrAMINE (BENADRYL) 25 mg IV Once 11/09/2017 11/09/2017 Ended injection 25 mg Active Problems Problem Noted Date COPD (chronic obstructive pulmonary disease) 08/09/2013 Bronchiectasis 08/09/2013 Hypogammaglobulinemia 12/03/2012 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 Encounters Date Type Specialty Care Team Description 12/07/2017 Procedure visit Oncology Rian Olivera CIDP (chronic inflammatory P., MD demyelinating polyneuropathy) Jin Morris ([facility]) MD Darryl 11/09/2017 Procedure visit Oncology Rian Olivera CIDP (chronic inflammatory P., MD demyelinating polyneuropathy) Jin Morris ([facility]) MD Viktor Andrews Shannon, RN 10/12/2017 Procedure visit Oncology Rian Olivera CIDP (chronic inflammatory P., MD demyelinating polyneuropathy) Jin Morris ([facility]) MD Bekah Andrews Rachel L, RN 09/12/2017 Procedure visit Oncology Rian Olivera CIDP (chronic inflammatory P., MD demyelinating polyneuropathy) Jin Morris ([facility]) MD Syl Andrews Dana M, RN 08/10/2017 Procedure visit Oncology Rian Olivera CIDP (chronic inflammatory P., MD demyelinating polyneuropathy) Jin Morris ([facility]) MD Kenney Andrews L R RN 07/11/2017 Procedure visit Oncology Rian Olivera CIDP (chronic inflammatory P., MD demyelinating polyneuropathy) Jin Morris ([facility]) (Primary Dx) MD Bakari Andrews Shalonda, RN 06/13/2017 Procedure visit Oncology Rian Olivera Hypogammaglobulinemia ( JONNIE) MD Morena (Primary Dx) Jin Morris MD Alexander, L R RN 05/16/2017 Procedure visit Oncology Rian Olivera Hypogammaglobulinemia ( [facility]) MD Morena (Primary Dx) Jin Morris MD Alexander, L R, RN after 04/30/2017 Family History Medical History Relation Name Comments [...] are in demyelinating the results polyneuropathy) ([facility]) section. BUN Routine 07/11/2017 2:00 CIDP (chronic Results for this PM CDT inflammatory procedure are in demyelinating the results polyneuropathy) ([facility]) section. after 04/30/2017 Results BUN and Creatinine (09/12/2017 11:27 AM CDT) BUN 20 7 - 21 mg/dL [facility] Creatinine 0.80Comment: Specimen 0.57 - 1.25 mg/dL [facility] moderately hemolyzed [facility] EGFR 72Comment: ESTIMATED GFR IS mL/min/1.[address] [facility] BCM NOT ACCURATE CREATININE [facility] CLEARANCE IN PREDICTING GLOMERULAR FILTRATION RATE. ESTIMATED GFR IS NOT APPLICABLE FOR DIALYSIS PATIENTS. Specimen Blood Performing Organization Address City/State/Zipcode Phone Number [facility] [address] [place], [place] [id number] [phone] CENTER BUN (07/11/2017 2:00 PM CDT) BUN 14 7 - 21 mg/dL [facility] Specimen Blood Performing Organization Address [facility]/Zipcode Phone Number [facility] [address] [place] [phone] CENTER Creatinine (07/11/2017 2:00 PM CDT) Creatinine 0.78 0.57 - 1.25 mg/dL [facility] EGFR 74Comment: ESTIMATED GFR IS mL/min/1.73 sq m [facility] NOT ACCURATE CREATININE MEDICAL CENTER CLEARANCE IN PREDICTING GLOMERULAR FILTRATION RATE. ESTIMATED GFR IS NOT APPLICABLE FOR DIALYSIS PATIENTS. Specimen Blood Performing Organization Address [facility] Phone Number [address] [address] [phone] CENTER after 04/30/2017 Insurance Payer Benefit Plan / Group Subscriber ID Type Phone Address MEDICARE MEDICARE A B xxxxxxxxxx Medicare MCR SUPPLEMENT/[employer] xxxxxxxx [facility] Advance Directives For more information, please contact:[address] [phone] Code Status Date Activated Date Inactivated Comments Code ONE 08/09/2013 4:35 PM 08/15/2013 3:38 PM All possible means of support , including: cardiac massage, mechanical ventilation, and defibrillation will be used to support life.
[2018-05-01] MEDS ORDERED: METHYLPREDNISOLONE 125 MG INJ ONE (09:21)
[2018-05-01] MEDS ORDERED: LEVALBUTEROL 1.25 MG/3 ML NEB ONE ×2 (09:21→16:39)
--- NOTE | 2018-05-01 10:04 | RAD REPORT ---
EXAM DESCRIPTION: Flash Single View05/01/2018 9:28 am CLINICAL HISTORY: Shortness of breath COMPARISON: January 2018 FINDINGS: Right upper lobe atelectasis has mostly resolved. Medial right upper lobe mass is again d emonstrated. Mild to moderate additional bilateral pulmonary opacities may represent pneumonia or pulmonary edema. A central venous catheter remains in place Delete
[2018-05-01 10:06] LABS: Absolute Lymphocytes (CBC) 0.3 K/uL (0.7-4.9); Absolute Neutrophil 9.4 K/uL (1.8-8.0); Basophils % 0.7 % (0-1.3); Eosinophils % 1.9 % (0-4.4); Hematocrit 24.8 % (36.0-45.0); Lymphocytes % 2.8 % (15.3-44.8); MPV 8.6 fL (7.6-11.3); RBC Red Blood Cell Count 2.68 M/uL (3.86-4.86)
[2018-05-01 10:27] LABS: BUN Blood Urea Nitrogen 6 mg/dL (7-18); Bicarbonate 29 mmol/L (21-32); Glucose Level 106 mg/dL (74-106); NT PRO-BNP 1275 pg/mL (<125); Potassium 3.2 mmol/L (3.5-5.1); Sodium Level 136 mmol/L (136-145)
--- NOTE | 2018-05-01 10:28 | ER ---
Nurse's Notes [facility] Name: Marlne Santacruz Age: 67 yrs Sex: Female : 1950 Arrival Date: 05/01/2018 Time: 08:55 Bed 5 Private MD: Diagnosis: Pneumonia;Chronic obstructive pulmonary disease with acute lower respiratory infection;Hypoxemia Presentation: 05/01 09:10 Presenting complaint: EMS states: Worsening SOB x 2 days. Transition of care: patient hb was received from another setting of care (long-term care facility), [facility]. Onset of symptoms was May 01, 2018. Risk Assessment: Do you want to hurt yourself or someone else? Patient reports no desire to harm self or others. Care prior to arrival: None. 09:10 Method Of Arrival: EMS: [facility] 09:10 Acuity: LINDEN 2 hb 12:19 Initial Sepsis Screen: Does the patient meet any 2 criteria?. ph 12:19 Initial Sepsis Screen: Does the patient meet any 2 criteria? No. Patient's initial hb sepsis screen is negative. Does the patient have a suspected source of infection?. Historical: - Allergies: 10:00 Ciprofloxacin; hb 10:00 Demerol; hb 10:00 Ibuprofen; hb 10:00 Iodine; hb 10:00 Keflex; hb 10:00 Levaquin; hb 10:00 Morphine; hb 10:00 PENICILLINS; hb 10:00 Sporanox; hb - Home Meds: 10:00 amitriptyline 50 mg Oral tab 2 tabs once daily [Active]; amlodipine 10 mg tab 1 tab hb once daily [Active]; antacid/adán/lido 1:1:1 Swish and swallow 2 teaspoons by mouth 10 minutes before meals and every night at bedtime [Active]; Arava 20 mg Oral tab 1 tab once daily [Active]; Atrovent Inhl twice a day [Active]; Boniva 150 mg Oral tab 1 tab once moly [Active]; Brovana 15 mcg/2 mL inhalation nebu 2 mL 2 times per day [Active]; Cartia XT 120 mg Oral cp24 [Active]; cefpodoxime 200 mg Oral tab 1 tab every 12 hours [Active]; clonidine HCl 0.1 mg Oral tab 3 times per day [Active]; duloxetine 60 mg Oral cpDR [Active]; dofetilide Oral 1 cap 2 times per day [Active]; Eliquis 5 mg Oral tab 1 tab 2 times per day [Active]; hydralazine 50 mg Oral tab 1 tab 2 times per day [Active]; budesonide 0.25mg Oral CECX 2 caps twice a day [Active]; Esbriet 267 mg Oral cap 3 caps after meals [Active]; immune globul,gamma(IgG)-sorb-IgA 0 to 50 mcg/mL intravenous every 4 wks [Active]; lisinopril 20 mg Oral tab twice a day [Active]; Lyrica Oral 1 cap [Active]; Mertens 10-325 mg Oral tab [Active]; leflunomide 10 mg Oral tab 2 tabs once daily [Active]; prednisone 10 mg Oral tab once daily [Active]; omeprazole 40 mg Oral cpDR 1 cap 2 times per day [Active]; sulfasalazine 500 mg Oral tab twice a day [Active]; Magnesium Oxide Oral [Active]; Mucinex 600 mg Oral Ta12 1 tab every 12 hours [Active]; Nasonex 50 mcg/actuation Nasal spry once daily [Active]; Tessalon Perles 100 mg Oral cap 2 caps 3 times per day for Cough [Active]; Xarelto 20 mg Oral tab 1 tab once daily [Active]; sulfasalazine 500 mg Oral tab 1 tab twice a day [Active]; propafenone 225 mg Oral tab [Active]; Prednisone Oral [Active]; potassium chloride 10 mEq Oral cpER 2 caps 2 times per day [Active]; - PMHx: 10:00 ADD/ADHD; Arthritis; Atrial Fib; COPD; Depression; Hypertension; GERD; Polyps Colon; hb Polyps Stomach; Rheumatoid Arthritis; Staph Infection Left Great Toe; 10:30 Lung CA; hb - Immunization history:: Adult Immunizations up to date. - Family history:: not pertinent. - Social history:: Smoking status: Patient/guardian denies using tobacco. - Ebola Screening: : No symptoms or risks identified at this time. - Hospitalizations: : No recent hospitalization is reported. Screenin:50 Abuse screen: Denies threats or abuse. Denies injuries from another. Nutritional hb screening: No deficits noted. Tuberculosis screening: No symptoms or risk factors identified. Fall Risk Total Bolden Fall Scale indicates High Risk Score (45 or more points). Fall prevention measures have been instituted. Side Rails Up X 2 Frequent Obs/Assessments Occuring Family Present and informed to notify staff if the need to leave the bedside As available patient and family educated on Fall Prevention Program and Strategies. Assessment: 09:15 General: Appears distressed, Behavior is cooperative, anxious. Pain: Denies pain. hb Neuro: Level of Consciousness is awake, alert, obeys commands, Oriented to person, place, time, situation. Cardiovascular: Heart tones S1 S2 present Capillary refill < 3 seconds Patient's skin is warm and dry. Respiratory: Airway is patent Respiratory effort is labored, Respiratory pattern is tachypnea Breath sounds are diminished bilaterally. Breath sounds with wheezes. GI: No signs and/or symptoms were reported involving the gastrointestinal system. : No signs and/or symptoms were reported regarding the genitourinary system. EENT: No signs and/or symptoms were reported regarding the EENT system. Derm: Skin is intact, is healthy with good turgor, Skin is pink, warm \T\ dry. Musculoskeletal: No signs and/or symptoms reported regarding the musculoskeletal system. 10:00 Reassessment: No changes from previously documented assessment. Patient and/or family hb updated on plan of care and expected duration. Pain level reassessed. 11:00 Reassessment: Patient appears in no apparent distress at this time. Patient and/or hb family updated on plan of care and expected duration. Pain level reassessed. Patient is alert, oriented x 3, equal unlabored respirations, skin warm/dry/pink. 11:51 Reassessment: Patient appears in no apparent distress at this time. Patient and/or hb family updated on plan of care and expected duration. Pain level reassessed. Patient is alert, oriented x 3, equal unlabored respirations, skin warm/dry/pink. Admission ordered, awaiting room assignment at this time. Family at bedside. 12:45 Reassessment: No changes from previously documented assessment. Patient and/or family hb updated on plan of care and expected duration. Pain level reassessed. family remains at bedside. Awaiting room at this time. 13:45 Reassessment: Patient appears in no apparent distress at this time. No changes from hb previously documented assessment. Patient is alert, oriented x 3, equal unlabored respirations, skin warm/dry/pink. 14:30 Reassessment: Patient appears in no apparent distress at this time. Patient and/or hb family updated on plan of care and expected duration. Pain level reassessed. Patient is alert, oriented x 3, equal unlabored respirations, skin warm/dry/pink. Vital Signs: 09:01 Pulse Ox 51% on R/A; hb 09:12 BP 94 / 60; Pulse 113; Resp 28; Temp 99; Pulse Ox 51% on R/A; Pain 4/10; hb 10:04 BP 133 / 71; Pulse 108; Resp 24; Pulse Ox 87% on 3 lpm NC; hb 11:45 BP 120 / 72; Pulse 94; Resp 24; Pulse Ox 96% on 4 lpm NC; hb 13:00 BP 132 / 78; Pulse 74; Resp 22; Pulse Ox 96% on 4 lpm NC; hb 14:00 BP 141 / 82; Pulse 78; Resp 24; Temp 98.4; Pulse Ox 97% on 4 lpm NC; hb ED Course: 08:55 Patient arrived in ED. rn 08:55 Michael Erwin MD is Attending Physician. rn 09:00 EKG done, by composite technician. reviewed by Michael Erwin MD. at1 09:07 Alexa Gandara, MANJINDER is Primary Nurse. hb 09:11 Triage completed. hb 09:21 Arm band placed on. hb 09:37 XRAY CXR (1 view) In Process Unspecified. EDMS 09:40 Accessed Port-a-Cath. using accessed w/ # 20 Hussein needle, ,sterile technique, per hospital protocol. Clean \T\ dry. Good blood return. Flushes easily. 09:50 Patient has correct armband on for positive identification. Bed in low position. Call light in reach. Side rails up X 1. Side rails up X2. 10:27 Marvin Loza DO is Hospitalizing Provider. rn 14:21 No provider procedures requiring assistance completed. Patient admitted, IV remains in hb place. Administered Medications: 09:15 Drug: Xopenex (3) 1.25 mg Route: Inhalation; hb 09:40 Drug: SOLU-Medrol 125 mg Route: IVP; Site: PICC; hb 11:40 Drug: Doxycycline 100 mg Route: PO; ph 12:30 Follow up: Response: No adverse reaction Outcome: 10:27 Decision to Hospitalize by Provider. rn 14:21 Admitted to Tele family with patient, via wheelchair, room 429. hb 14:21 Condition: stable 14:21 Instructed on the need for admit, Demonstrated understanding of instructions. 14:47 Patient left the ED. hb Signatures: Dispatcher [employer] Michael Riley MD MD rn Gonzales, Amanda, social sciences instructor EKG Tat1 Marlen Farmer RN RN ph Baxter, Heather, RN RN hb Corrections: (The following items were deleted from the chart) 09:20 09:10 Transition of care: patient was not received from another setting of care. hb hb
--- NOTE | 2018-05-01 10:29 | EDPHYS ---
Physician Documentation [facility] Name: Marlen Santacruz Age: 67 yrs Sex: Female : 1950 Arrival Date: 05/01/2018 Time: 08:55 Bed 5 Private MD: ED Physician Michael Erwin HPI: 05/01 09:08 This 67 yrs old Female presents to ER via Unassigned with complaints of sob. rn 09:08 The patient has shortness of breath at rest, with light activity. Onset: The rn symptoms/episode began/occurred this morning. Duration: The symptoms are continuous. The patient's shortness of breath is aggravated by nothing, is alleviated by nothing. Severity of symptoms: At their worst the symptoms were moderate in the emergency department the symptoms are unchanged. The patient has experienced similar episodes in the past. Reports sob, began this morning, + chills and subjective fever, oxygen 88%, no meds given, called out for respiratory distress. . Historical: - Allergies: 10:00 Ciprofloxacin; hb 10:00 Demerol; hb 10:00 Ibuprofen; hb 10:00 Iodine; hb 10:00 Keflex; hb 10:00 Levaquin; hb 10:00 Morphine; hb 10:00 PENICILLINS; hb 10:00 Sporanox; hb - Home Meds: 10:00 amitriptyline 50 mg Oral tab 2 tabs once daily [Active]; amlodipine 10 mg tab 1 tab hb once daily [Active]; antacid/adán/lido 1:1:1 Swish and swallow 2 teaspoons by mouth 10 minutes before meals and every night at bedtime [Active]; Arava 20 mg Oral tab 1 tab once daily [Active]; Atrovent Inhl twice a day [Active]; Boniva 150 mg Oral tab 1 tab once moly [Active]; Brovana 15 mcg/2 mL inhalation nebu 2 mL 2 times per day [Active]; Cartia XT 120 mg Oral cp24 [Active]; cefpodoxime 200 mg Oral tab 1 tab every 12 hours [Active]; clonidine HCl 0.1 mg Oral tab 3 times per day [Active]; duloxetine 60 mg Oral cpDR [Active]; dofetilide Oral 1 cap 2 times per day [Active]; Eliquis 5 mg Oral tab 1 tab 2 times per day [Active]; hydralazine 50 mg Oral tab 1 tab 2 times per day [Active]; budesonide 0.25mg Oral CECX 2 caps twice a day [Active]; Esbriet 267 mg Oral cap 3 caps after meals [Active]; immune globul,gamma(IgG)-sorb-IgA 0 to 50 mcg/mL intravenous every 4 wks [Active]; lisinopril 20 mg Oral tab twice a day [Active]; Lyrica Oral 1 cap [Active]; [place] [facility] 10-325 mg Oral tab [Active]; leflunomide 10 mg Oral tab 2 tabs once daily [Active]; prednisone 10 mg Oral tab once daily [Active]; omeprazole 40 mg Oral cpDR 1 cap 2 times per day [Active]; sulfasalazine 500 mg Oral tab twice a day [Active]; Magnesium Oxide Oral [Active]; Mucinex 600 mg Oral Ta12 1 tab every 12 hours [Active]; Nasonex 50 mcg/actuation Nasal spry once daily [Active]; Tessalon Perles 100 mg Oral cap 2 caps 3 times per day for Cough [Active]; Xarelto 20 mg Oral tab 1 tab once daily [Active]; sulfasalazine 500 mg Oral tab 1 tab twice a day [Active]; propafenone 225 mg Oral tab [Active]; Prednisone Oral [Active]; potassium chloride 10 mEq Oral cpER 2 caps 2 times per day [Active]; - PMHx: 10:00 ADD/ADHD; Arthritis; Atrial Fib; COPD; Depression; Hypertension; GERD; Polyps Colon; hb Polyps Stomach; Rheumatoid Arthritis; Staph Infection Left Great Toe; 10:30 Lung CA; hb - Immunization history:: Adult Immunizations up to date. - Family history:: not pertinent. - Social history:: Smoking status: Patient/guardian denies using tobacco. - Ebola Screening: : No symptoms or risks identified at this time. - Hospitalizations: : No recent hospitalization is reported. ROS: 09:08 Constitutional: + fever and chills Eyes: Negative for injury, pain, redness, and home hospice rn, Cardiovascular: Negative for chest pain, palpitations, and edema, Respiratory: + sob and cough Abdomen/GI: Negative for abdominal pain, nausea, vomiting, diarrhea, and constipation, MS/Extremity: Negative for injury and deformity, Skin: Negative for injury, rash, and discoloration, Neuro: Negative for headache, weakness, numbness, tingling, and seizure. Exam: 09:08 Constitutional: This is a well developed, well nourished patient who is awake, alert, rn and in no acute distress. Head/Face: Normocephalic, atraumatic. Eyes: Pupils equal round and reactive to light, extra-ocular motions intact. Lids and lashes normal. Conjunctiva and sclera are non-icteric and not injected. Cornea within normal limits. Periorbital areas with no swelling, redness, or edema. ENT: dry MM, no stridor Cardiovascular: tachycardic, regular, no murmur Respiratory: + tachypnea with wheezing right mid and upper liung, diminished breath sounds left lung, no retractions Abdomen/GI: sof,t non tender MS/ Extremity: Pulses equal, no cyanosis. Neurovascular intact. Full, normal range of motion. Equal circumference. Neuro: Awake and alert, GCS 15, oriented to person, place, time, and situation. Cranial nerves II-XII grossly intact. Motor strength 5/5 in all extremities. Sensory grossly intact. Vital Signs: 09:01 Pulse Ox 51% on R/A; hb 09:12 BP 94 / 60; Pulse 113; Resp 28; Temp 99; Pulse Ox 51% on R/A; Pain 4/10; hb 10:04 BP 133 / 71; Pulse 108; Resp 24; Pulse Ox 87% on 3 lpm NC; hb 11:45 BP 120 / 72; Pulse 94; Resp 24; Pulse Ox 96% on 4 lpm NC; hb 13:00 BP 132 / 78; Pulse 74; Resp 22; Pulse Ox 96% on 4 lpm NC; hb 14:00 BP 141 / 82; Pulse 78; Resp 24; Temp 98.4; Pulse Ox 97% on 4 lpm NC; hb MDM: 08:55 Patient medically screened. rn 10:25 Differential diagnosis: Bronchitis Chronic Obstructive Pulmonary Disease Myocardial rn Infarction pneumonia, Pneumothorax pulmonary edema. Data reviewed: vital signs, nurses notes, lab test result(s), EKG, radiologic studies, plain films, and as a result, I will admit patient. Counseling: I had a detailed discussion with the patient and/or guardian regarding: the historical points, exam findings, and any diagnostic results supporting the discharge/admit diagnosis, lab results, radiology results, the need for further work-up and treatment in the hospital. Response to treatment: the patient's symptoms have mildly improved after treatment, and as a result, I will admit patient. Admission orders: after a detailed discussion of the patient's condition and case, the admit orders are written by me. 05/01 08:56 Order name: Blood Culture Adult (2) rn 05/01 08:56 Order name: BMP; Complete Time: 10:45 rn 05/01 08:56 Order name: CBC with Diff; Complete Time: 10:19 rn 05/01 08:56 Order name: NT PRO-BNP; Complete Time: 10:45 rn 05/01 08:56 Order name: Flu; Complete Time: 10:24 rn 05/01 08:56 Order name: Procalcitonin rn 05/01 08:56 Order name: XRAY CXR (1 view); Complete Time: 10:19 05/01 08:56 Order name: EKG; Complete Time: 08:57 rn 05/01 08:56 Order name: Lactate; Complete Time: 10:45 rn 05/01 08:56 Order name: Urine Microscopic Only 05/01 08:56 Order name: Urine Culture 05/01 08:56 Order name: Cardiac monitoring; Complete Time: 14:46 05/01 08:56 Order name: EKG - Nurse/Tech; Complete Time: 14:46 05/01 08:56 Order name: IV Saline Lock; Complete Time: 14:46 05/01 08:56 Order name: Labs collected and sent; Complete Time: 14:46 05/01 08:56 Order name: O2 Per Protocol; Complete Time: 14:46 05/01 08:56 Order name: O2 Sat Monitoring; Complete Time: 14:46 rn 05/01 12:23 Order name: Diet Heart Healthy; Complete Time: 12:25 ph Administered Medications: 09:15 Drug: Xopenex (3) 1.25 mg Route: Inhalation; hb 09:40 Drug: SOLU-Medrol 125 mg Route: IVP; Site: PICC; hb 11:40 Drug: Doxycycline 100 mg Route: PO; ph 12:30 Follow up: Response: No adverse reaction hb Disposition: 05/01/18 10:27 Hospitalization ordered by Marvin Loza for Observation. Preliminary diagnosis are Pneumonia, Chronic obstructive pulmonary disease with acute lower respiratory infection, Hypoxemia. - Bed requested for Telemetry/MedSurg (Inpatient). - Status is Observation. hb - Condition is Stable. - Problem is new. - Symptoms have improved. UTI on Admission? No Signatures: Dispatcher [employer] EDMS Sarika Baca RN RN dw Michael Erwin MD MD rn Hall, Patricia, RN RN Alexa Gandara RN RN Corrections: (The following items were deleted from the chart) 10:47 10:27 Hospitalization Ordered by Marvin Loza DO for Inpatient Admission. Preliminary rn diagnosis is Pneumonia; Chronic obstructive pulmonary disease with acute lower respiratory infection; Hypoxemia. Bed requested for Telemetry/MedSurg (Inpatient). Status is Inpatient Admission. Condition is Stable. Problem is new. Symptoms have improved. UTI on Admission? No. rn 13:32 10:47 05/01/2018 10:27 Hospitalization Ordered by Marvin Loza DO for Observation. dw Preliminary diagnosis is Pneumonia; Chronic obstructive pulmonary disease with acute lower respiratory infection; Hypoxemia. Bed requested for Telemetry/MedSurg (Inpatient). Status is Observation. Condition is Stable. Problem is new. Symptoms have improved. UTI on Admission? No. rn 14:47 13:32 05/01/2018 10:27 Hospitalization Ordered by Marvin Loza DO for Observation. hb Preliminary diagnosis is Pneumonia; Chronic obstructive pulmonary disease with acute lower respiratory infection; Hypoxemia. Bed requested for Telemetry/MedSurg (Inpatient). Status is Observation. Condition is Stable. Problem is new. Symptoms have improved. UTI on Admission? No. dw
--- NOTE | 2018-05-01 12:19 | EKG ---
Test Date: 2018-03-31 Test Time: 09:00:29 Associate Director Of Development: JEREMIE MEASUREMENT RESULTS: Intervals: Rate: 123 TX: 146 QRSD: 78 QT: 330 QTc: 472 [place]: P: TX: 146 QRS: 11 T: 77 INTERPRETIVE STATEMENTS: Sinus tachycardia Nonspecific T wave abnormality Abnormal ECG Compared to ECG 03/18/2018 04:20:38 T-wave abnormality now present Atrial premature complex(es) no longer present Electronically Signed On 05-01-18 12:18:37 CATERING MANAGER by Jackson Cooper
[2018-05-01 15:07] VITALS: BMI 31.8
[2018-05-01] MEDS ORDERED: ACETAMINOPHEN 500 MG TAB PO PRN (15:22)
[2018-05-01] MEDS ORDERED: ONDANSETRON 4 MG/2 ML VIAL IV PRN (15:22)
[2018-05-01] MEDS ORDERED: ALBUTEROL 2.5 MG/3 ML NEB SOL NEB PRN (15:22)
[2018-05-01] MEDS ORDERED: IPRATROPIUM BROM 0.5MG/2.5ML NEB PRN (15:22)
--- NOTE | 2018-05-01 15:36 | P.HP ---
Certification for Inpatient Patient admitted to: Observation With expected LOS: <2 Midnights Patient will require the following post-hospital care: Other (custodial) Practitioner: I am a practitioner with admitting privileges, knowledge of patient current condition, hospital course, and medical plan of care. Services: Services provided to patient in accordance with Admission requirements found in Title 42 Section 412.3 of the Code of Federal Regulations Patient History Date of Service: 05/01/18 Primary Care Provider: custodial facility Reason for admission: Shortness of breath History of Present Illness: 67-year-old female presented emergency room with increasing shortness of breath. Patient also reported some chills. Patient has a history of COPD and lung cancer. [facility]. She at times feels that the machine is not working. Patient denies chest pain, nausea or vomiting. Patient came to the ER for further evaluation. In the ER patient evaluated. Patient found to be hypoxic upon initial evaluation. Chest x-ray shows no pneumonia. Influenza test negative. Hemoglobin 8.0. White count 11. BNP slightly elevated. Electrolytes unremarkable. The patient was given nebulized treatments with improvement. The patient was admitted for observation. When I saw the patient ER, she appeared comfortable Allergies meperidine HCl [From Demerol] Allergy (Intermediate, Verified 10/31/17 22:53) Itching/Hives/Rash cephalexin [From Keflex] Allergy (Verified 10/31/17 22:55) Itching/Hives/Rash ciprofloxacin Allergy (Verified 11/01/17 19:32) Hives/Rash iodine Allergy (Verified 12/03/17 11:14) Itching itraconazole [From Sporanox] Allergy (Verified 10/31/17 22:57) Hives/Rash morphine Allergy (Verified 10/31/17 22:56) Itching/Hives/Rash Penicillins Allergy (Verified 10/31/17 22:57) Itching/Hives/Rash Home Medications: Amlodipine Besylate 10 mg PO DAILY 01/27/18 Antacid/Diphen/Lido 1:1:1 10 ml PO ACHS PRN 01/27/18 Apixaban [Eliquis *] 5 mg PO BID 01/27/18 Benzonatate 200 mg PO TID PRN 01/27/18 Clonidine HCl [Catapres] 0.1 mg PO TID PRN 01/27/18 Diltiazem HCl [Diltiazem 24Hr Cd] 120 mg PO DAILY 01/27/18 Dofetilide 500 mcg PO BID 01/27/18 Duloxetine [Cymbalta *] 60 mg PO DAILY 01/27/18 Guaifenesin [Mucinex] 600 mg PO BID 01/27/18 Hydralazine [Apresoline*] 50 mg PO DAILY 01/27/18 Leflunomide 20 mg PO DAILY 01/27/18 Lisinopril 20 mg PO BID 01/27/18 Magnesium Oxide [Mag-Oxide] 400 mg PO DAILY 01/27/18 Mometasone Furoate [Nasonex] 2 spray IH DAILY 01/27/18 Omeprazole [Prilosec] 40 mg PO DAILY 01/27/18 Potassium Chloride 20 meq PO DAILY 01/27/18 Pregabalin [Lyrica*] 25 mg PO DAILY 01/27/18 Sulfasalazine [Azulfidine] 1,000 mg PO BID 01/27/18 predniSONE [Prednisone] 10 mg PO DAILY 01/27/18 Umeclidinium [place] [Incruse Ellipta] 62.5 mcg IH DAILY #1 blst.w.dev 02/02/18 Doxycycline Hyclate 100 mg PO BID #14 tablet 03/18/18 - Past Medical/Surgical History Diabetic: No -: Rheumatoid Arthritis -: Interstitial Lung Disease -: Obstructive sleep apnea -: [place] -: Osteopenia -: Hyperlipidemia -: COPD, end-stage, oxygen/steroid dependent -: Atrial fibrillation on chronic anti coagulation -: GERD with hiatal hernia -: Depression -: Recently diagnosed lung cancer -: depression -: Tonsilectomy -: Appendectomy, [place] -: Hysterectomy -: Multiple ganglion cyst removal -: Knee Replacement rohini -: Tendon repair bilateral wrist -: Knuckle removal in toes on R foot/hands -: Multiple bursectomy excision Psychosocial/ Personal History: Patient is a . - Family History Sister -: Hypertension, Lung disease, Other (see notes) Notes: rotoscoliasis, sleep apnea, hyperlipidemia Brother -: Hypertension, Diabetes, Other (see notes) Notes: gout, hyperlipidemia Mother -: Hypertension, Cancer Notes: klatskin tumor Father -: Heart disease, Hypertension, Lung disease, Diabetes, Cancer, Other (see notes ) Notes: lung cancer, gout - Social History Smoking Status: Former smoker Alcohol use: No CD- Drugs: No Caffeine use: Yes Place of Residence: [facility] Review of Systems General: Chills Eyes: Unremarkable ENT: Unremarkable Respiratory: Shortness of Breath, As per HPI Cardiovascular: Unremarkable Gastrointestinal: Unremarkable Genitourinary: Unremarkable Musculoskeletal: Unremarkable Integumentary: Unremarkable Neurological: Unremarkable Lymphatics: Unremarkable Physical Examination - Vital Signs Temperature: 96.9 F Blood Pressure: 119/71 Pulse: 87 Respirations: 28 Pulse Ox (%): 98 - Physical Exam General: Alert, In no apparent distress, Oriented x3, Cooperative HEENT: Atraumatic, Normocephalic Neck: Supple Respiratory: Expiratory wheezes (Mild) Cardiovascular: Normal pulses, Regular rate/rhythm Gastrointestinal: Normal bowel sounds, Soft and benign, Non-distended, No masses , No rebound, No guarding Musculoskeletal: No erythema, No tenderness, No warmth Integumentary: No erythema, No warmth, No cyanosis Neurological: Normal speech, Normal strength at 5/5 x4 extr, Normal tone, Normal affect - Studies Laboratory Data (last 24 hrs) 05/01/18 09:42: WBC 11.0 H D, Hgb 8.0 L D, Hct 24.8 L D, Plt Count 230 05/01/18 09:42: Sodium 136, Potassium 3.2 L, BUN 6 L, Creatinine 0.49 L, Glucose 106 Microbiology Data (last 24 hrs): 05/01/18 09:42 Nasopharnyx Influenza Type A Antigen Screen - Final 05/01/18 09:42 Nasopharnyx Influenza Type B Antigen Screen - Final Assessment and Plan - Plan Impression: Shortness of breath secondary to COPD exacerbation with hypoxia Chronic atrial fibrillation Lung cancer Hypertension Anemia of chronic disease GERD Depression Obesity, BMI 31 Plan: Shortness of breath secondary to COPD exacerbation with hypoxia: Patient much improved. Will continue with COPD medication. [facility]. Will need to investigate if her oxygen machine is working appropriately. Anticipate discharge in the next 24 hr. Chronic atrial fibrillation: Continue with her medication Lung cancer: Patient seen at [facility]. She is to have a PET scan here soon to address her current condition. Hypertension: Continue medication Anemia of chronic disease: This appears chronic. No active bleeding noted by patient. Will monitor hemoglobin. Will try to keep it above 8.0. Patient may require transfusion if below 7.5. GERD: continue meds. Depression: Continue with medication Obesity, BMI 31: Address lifestyle modification. Discharge Plan: [facility] Plan to discharge in: 24 Hours - Advance Directives Does patient have a Living Will: No Does patient have a Durable POA for Healthcare: Yes - Code Status/Comfort Care Code Status Assessed: Yes (Patient is full code) Time Spent Managing Pts Care (In Minutes): 55
[2018-05-01 16:22] LABS: Hematocrit 33.6 % (36.0-45.0)
[2018-05-01] MEDS ORDERED: LEVALBUTEROL 1.25 MG/3 ML NEB NEB PRN (16:33)
[2018-05-01] MEDS: ARFORMOTEROL TARTRATE 15 MCG/2 ML VIAL.NEB NEB SCH (19:45)
[2018-05-01] MEDS ORDERED: POTASSIUM CL SA 10 MEQ TAB PO ONE (20:50)
[2018-05-01] MEDS: predniSONE 10 MG TAB PO SCH (21:15)
[2018-05-01] MEDS: APIXABAN 5 MG TABLET PO SCH (21:15)
[2018-05-01 21:54] LABS: Urine Appearance CLOUDY; Urine Bilirubin NEGATIVE (NEG); Urine Blood NEGATIVE (NEG); Urine Color YELLOW; Urine Glucose NEGATIVE (NEG); Urine Protein NEGATIVE (NEG); Urine Urobilinogen 0.2 mg/dL (0.2-1.0); Urine pH 5.5 (5.0-7.0)
[2018-05-01 22:07] LABS: Urine Microscopic Reflex ORDER UMIC
[2018-05-01 22:08] LABS: Urine Bacteria LOADED /HPF (<20); Urine Culture Reflex Order NOT NEEDED; Urine RBC NONE SEEN /HPF (NONE SEEN)
[2018-05-01] MEDS: SULFASALAZINE 500 MG E.C. TAB PO SCH (22:15)
[2018-05-02 04:16] LABS: Absolute Lymphocytes (CBC) 0.2 K/uL (0.7-4.9); Absolute Monocytes 0.5 K/uL (0.1-1.3); Absolute Neutrophil 6.2 K/uL (1.8-8.0); Basophils % 0.3 % (0-1.3); Hematocrit 32.7 % (36.0-45.0); Lymphocytes % 2.5 % (15.3-44.8); MPV 8.3 fL (7.6-11.3); Monocytes % 7.8 % (3.3-12.3); RBC Red Blood Cell Count 3.59 M/uL (3.86-4.86)
[2018-05-02 04:32] LABS: BUN Blood Urea Nitrogen 11 mg/dL (7-18); Bicarbonate 32 mmol/L (21-32); Glucose Level 129 mg/dL (74-106); Magnesium 1.7 mg/dL (1.8-2.4); Potassium 4.1 mmol/L (3.5-5.1); Sodium Level 137 mmol/L (136-145)
[2018-05-02 05:11] LABS: Anisocytosis 1+; Blood Morphology Comment NOTED (NOT SEEN); Platelet Estimate ADEQ
[2018-05-02] MEDS ORDERED: MAGNESIUM SULFATE 1 gm IVPB 1 GM/100 ML BAG IV ONE (06:00)
[2018-05-02] MEDS: ARFORMOTEROL TARTRATE 15 MCG/2 ML VIAL.NEB NEB SCH (07:36)
[2018-05-02] MEDS ORDERED: HYDROMORPHONE ORAL 2 MG TAB PO PRN (08:39)
[2018-05-02] MEDS ORDERED: FUROSEMIDE 40 MG TABLET PO SCH (09:00)
[2018-05-02] MEDS ORDERED: COLLAGENASE 30 GM OINTMENT TOP SCH (09:00)
[2018-05-02] MEDS ORDERED: MAGNESIUM OXIDE 400 MG TAB PO SCH (09:00)
[2018-05-02] MEDS ORDERED: FENTANYL 25 MCG/PATCH TD SCH (09:00)
[2018-05-02] MEDS ORDERED: FUROSEMIDE 20 MG TABLET PO SCH (09:00)
[2018-05-02] MEDS ORDERED: DOCUSATE NA 100 MG CAP PO SCH (09:00)
[2018-05-02] MEDS ORDERED: SPIRONOLACTONE 25 MG TABLET PO SCH (09:00)
[2018-05-02] MEDS ORDERED: HOME MED 1 EA UNK (Spironolactone [Aldactone] 50 MG) PO SCH (09:00)
[2018-05-02] MEDS ORDERED: DOFETILIDE 500 MG PO SCH (09:00)
[2018-05-02] MEDS ORDERED: LEFLUNOMIDE 20 MG PO SCH (09:00)
[2018-05-02] MEDS ORDERED: DILTIAZEM HCL 120 MG PO SCH (09:00)
[2018-05-02] MEDS ORDERED: DILTIAZEM HCL 120 MG SR CAP PO SCH (09:00)
[2018-05-02] MEDS ORDERED: HOME MED 1 EA UNK (Apixaban [Eliquis] 5 MG) PO SCH (09:00)
--- NOTE | 2018-05-02 10:16 | RAD REPORT ---
EXAM DESCRIPTION: RAD - Chest Pa And Lat (2 Views) - 05/02/2018 9:38 am CLINICAL HISTORY: follow up COPD Chest pain. COMPARISON: Chest Single View dated 05/01/2018; Chest Single View dated 03/18/2018; Chest Single View dated 02/03/2018; Chest Single View dated 01/31/2018 FINDINGS: Extensive bilateral pulmonary opacities show little overall change compared to the compara tive study. The heart is normal in size. No displaced fractures. Left-sided port catheter its tip in SVC. Cervical spine hardware plate is noted. IMPRESSION: Stable chest since 05/01/2018.
[2018-05-02] MEDS: APIXABAN 5 MG TABLET PO SCH (10:23)
[2018-05-02] MEDS: predniSONE 10 MG TAB PO SCH (10:23)
[2018-05-02] MEDS: SULFASALAZINE 500 MG E.C. TAB PO SCH (10:25)
--- NOTE | 2018-05-02 12:06 | P.DS ---
Admission Date: 05/01/18 Discharge Date: 05/02/18 Primary Care Provider: intermediate facility Disposition: TRANSFER TO [facility] Discharge Condition: GOOD Reason for Admission: Shortness of breath Consultations: none Procedures: CXR: COMPARISON: January 2018 FINDINGS: Right upper lobe atelectasis has mostly resolved. Medial right upper lobe mass is again demonstrated. Mild to moderate additional bilateral pulmonary opacities may represent pneumonia or pulmonary edema. Follow up CXR: COMPARISON: Chest Single View dated 05/01/2018; Chest Single View dated 2017; Chest Single View dated 02/03/2018; Chest Single View dated 01/31/2018 FINDINGS: Extensive bilateral pulmonary opacities show little overall change compared to the comparative study. The heart is normal in size. No displaced fractures. Left-sided port catheter its tip in SVC. Cervical spine hardware plate is noted. IMPRESSION: Stable chest since 05/01/2018. Medical Problem List: Shortness of breath secondary to COPD exacerbation with hypoxia complicated with lung cancer to the right upper lobe and right upper lobe atelectasis Chronic diastolic CHF Chronic atrial fibrillation on chronic anti coagulation therapy Lung cancer Hypertension Anemia of chronic disease GERD Depression Rheumatoid arthritis on chronic steroids Osteoporosis Chronic pain Obesity, BMI 31 Brief History of Present Illness: 67-year-old female presented emergency room with increasing shortness of breath. Patient also reported some chills. Patient has a history of COPD and lung cancer. She reports taking oxygen at the halfway. She at times feels that the machine is not working. Patient denies chest pain, nausea or vomiting. Patient came to the ER for further evaluation. In the ER patient evaluated. Patient found to be hypoxic upon initial evaluation. Chest x-ray shows no pneumonia. Influenza test negative. Hemoglobin 8.0. White count 11. BNP slightly elevated. Electrolytes unremarkable. The patient was given nebulized treatments with improvement. The patient was admitted for observation. When I saw the patient ER, she appeared comfortable Hospital Course: Patient presented with shortness of breath. This was secondary to COPD exacerbation with hypoxia. This is complicated with patient having underlying right upper lobe lung cancer and chronic right upper lobe atelectasis. Patient was monitored overnight. There was some concern of her oxygen machine not working appropriately at the halfway. This was checked by family. She reports it is working appropriately now. Repeat x-ray shows no significant change. Patient now back to baseline. At discharge she will continue with prednisone 10 mg 1 pill twice daily for 5 days then once daily for. Patient will continue with her COPD medications including Brovana 1 unit dose twice daily, Pulmicort 1 puff twice daily, Incruse 1 puff daily and Xopenex 1 unit dose 3 times a day as needed for shortness of breath.. She is to continue with oxygen to maintain sats above 90%. Patient plans to follow up with pulmonology to continue follow up on her lung cancer. Patient has received treatment in the past. She is due for a PET scan to evaluate her current condition. I will have nursing call nursing facility to verify proper functioning oxygen machine. Patient with chronic diastolic CHF. Patient may have a component of retention of fluid. Recommend to increase Lasix to 40 mg daily. Patient also on Aldactone. Patient will continue with a 1500 cc per day fluid restriction and low-salt diet. She is to monitor her weight daily. If her weight increases by more than 5 lb further adjustment can be done by halfway facility doctor. Patient with chronic atrial fibrillation. Patient will continue with her medication including chronic anti coagulation therapy-Eliquis 5 mg twice daily. Patient with hypertension. Patient will continue with her medications-Cardizem 120 mg daily. She also takes clonidine as needed for elevated blood pressure. Recommend to maintain blood pressures less 150/80. Further adjustment can be done by her PCP. Patient has anemia of chronic disease. This has remained stable. Recommend to recheck CBC in 2-4 weeks to monitor progress. Patient has GERD. Patient will continue with her medication-Prilosec 20 mg daily. Patient has depression. She will continue with her medication-Cymbalta 60 mg daily. Patient with rheumatoid arthritis on chronic steroids. Patient will continue with her medication Arava 20 mg daily. Patient will continue with titrated dose of prednisone then continue 10 mg daily. Medications reviewed. intermediate medication reported Boniva as a once daily. This may need to be corrected at the halfway to once a month. This will need to be verified by a Rheumatology. Follow up with Rheumatology as directed. Patient has chronic pain. Patient continue with her pain medication-fentanyl patch 25 mcg every 72 hr and Dilaudid 2 mg every 4 hr as needed for breakthrough pain. Further adjustment can be done by pain management or halfway facility physician. Vital Signs/Physical Exam: Temp Pulse Resp BP Pulse Ox 97.8 F 93 H 18 113/69 91 05/02/18 08:00 05/02/18 11:05 05/02/18 08:00 05/02/18 11:05 05/02/18 08:00 General: Alert, In no apparent distress, Oriented x3, Cooperative HEENT: Atraumatic Neck: Supple Respiratory: Crackles/rales (Bilateral) Cardiovascular: Normal pulses, Regular rate/rhythm Gastrointestinal: Normal bowel sounds, Soft and benign, Non-distended, No masses , No rebound, No guarding Musculoskeletal: No erythema, No tenderness, No warmth Integumentary: No tenderness/swelling, No erythema, No warmth, No cyanosis Neurological: Normal speech, Normal strength at 5/5 x4 extr, Normal tone, Normal affect Laboratory Data at Discharge: WBC 7.0 K/uL (4.3-10.9) D 05/02/18 03:31 Hgb 10.5 g/dL (12.0-15.0) L 05/02/18 03:31 Hct 32.7 % (36.0-45.0) L 05/02/18 03:31 Plt Count 210 K/uL (152-406) 05/02/18 03:31 Sodium 137 mmol/L (136-145) 05/02/18 03:31 Potassium 4.1 mmol/L (3.5-5.1) 05/02/18 03:31 BUN 11 mg/dL (7-18) 05/02/18 03:31 Creatinine 0.54 mg/dL (0.55-1.3) L 05/02/18 03:31 Glucose 129 mg/dL (74-106) H 05/02/18 03:31 Magnesium 1.7 mg/dL (1.8-2.4) L 05/02/18 03:31 Home Medications: Apixaban [Eliquis] 5 mg PO BID 05/01/18 Arformoterol Tartrate [Brovana] 15 mcg NEB BIDRESP 05/01/18 Budesonide [Pulmicort*] 1 puff IH BID 05/01/18 Clonidine HCl [Clonidine HCl ER] 0.1 mg PO Q8H PRN 05/01/18 Collagenase [Santyl Ointment*] 30 appl TOP DAILY 05/01/18 Diltiazem HCl [Cardizem] 120 mg PO DAILY 05/01/18 Docusate [Colace Cap*] 100 mg PO DAILY 05/01/18 Dofetilide 500 mg PO BID 05/01/18 Duloxetine HCl [Cymbalta] 60 mg PO DAILY 05/01/18 Hydromorphone HCl [Dilaudid] 2 mg PO Q4H PRN 05/01/18 Leflunomide [Arava] 20 mg PO DAILY 05/01/18 Magnesium Oxide [Magnesium] 800 mg PO DAILY 05/01/18 Omeprazole 20 mg PO DAILY 05/01/18 Promethazine HCl 25 mg PO Q8H PRN 05/01/18 Spironolactone [Aldactone] 50 mg PO DAILY 05/01/18 Umeclidinium [place] [Incruse Ellipta] 1 puff IH DAILY 05/01/18 fentaNYL [Fentanyl] 25 mcg TD EVERY 3RD DAY 05/01/18 predniSONE [Deltasone*] 10 mg PO DAILY 05/01/18 sulfaSALAzine [AZULFIDINE EN-tabs*] 1,000 mg PO BID 05/01/18 Furosemide [Lasix*] 40 mg PO DAILY #30 tab 05/02/18 Levalbuterol [Xopenex*] 3 ml NEB [id number] PRN #90 vial 05/02/18 predniSONE [Deltasone*] 10 mg PO SEECOM #15 tab 05/02/18 New Medications: Furosemide [Lasix*] 40 mg PO DAILY #30 tab Levalbuterol [Xopenex*] 3 ml NEB [id number] PRN #90 vial PRN Reason: Shortness Of Breath predniSONE [Deltasone*] 10 mg PO SEECOM #15 tab Patient Discharge Instructions: 1. The patient will return to the halfway. 2. Patient presented with shortness of breath. This was secondary to COPD exacerbation with hypoxia. This is complicated with patient having underlying right upper lobe lung cancer and chronic right upper lobe atelectasis. Patient was monitored overnight. There was some concern of her oxygen machine not working appropriately at the halfway. This was checked by family. She reports it is working appropriately now. Repeat x-ray shows no significant change. Patient now back to baseline. At discharge she will continue with prednisone 10 mg 1 pill twice daily for 5 days then once daily for. Patient will continue with her COPD medications including Brovana 1 unit dose twice daily, Pulmicort 1 puff twice daily, Incruse 1 puff daily and Xopenex 1 unit dose 3 times a day as needed for shortness of breath.. She is to continue with oxygen to maintain sats above 90%. Patient plans to follow up with pulmonology to continue follow up on her lung cancer. Patient has received treatment in the past. She is due for a PET scan to evaluate her current condition. I will have nursing call nursing facility to verify proper functioning oxygen machine. 3. Patient with chronic diastolic CHF. Patient may have a component of retention of fluid. Recommend to increase Lasix to 40 mg daily. Patient also on Aldactone. Patient will continue with a 1500 cc per day fluid restriction and low-salt diet. She is to monitor her weight daily. If her weight increases by more than 5 lb further adjustment can be done by halfway facility doctor. 4. Patient with chronic atrial fibrillation. Patient will continue with her medication including chronic anti coagulation therapy-Eliquis 5 mg twice daily. 5. Patient with hypertension. Patient will continue with her medications-Cardizem 120 mg daily. She also takes clonidine as needed for elevated blood pressure. Recommend to maintain blood pressures less 150/80. Further adjustment can be done by her PCP. 6. Patient has anemia of chronic disease. This has remained stable. Recommend to recheck CBC in 2-4 weeks to monitor progress. 7. Patient has GERD. Patient will continue with her medication-Prilosec 20 mg daily. 8. Patient has depression. She will continue with her medication-Cymbalta 60 mg daily. 9. Patient with rheumatoid arthritis on chronic steroids. Patient will continue with her medication Arava 20 mg daily. Patient will continue with titrated dose of prednisone then continue 10 mg daily. Medications reviewed. intermediate medication reported Boniva as a once daily. This may need to be corrected at the halfway to once a month. This will need to be verified by a Rheumatology. Follow up with Rheumatology as directed. 10. Patient has chronic pain. Patient continue with her pain medication-fentanyl patch 25 mcg every 72 hr and Dilaudid 2 mg every 4 hr as needed for breakthrough pain. Further adjustment can be done by pain management or halfway facility physician. Diet: AHA Activity: Fall precautions Time spent managing pt's care (in minutes): 55
[2018-05-02 12:59] VITALS: O2SAT 91
[2018-05-02 16:21] VITALS: BP 120/67; TEMP 98.1
[2018-05-02] MEDS ORDERED: HEPARIN 500 UNIT/5 ML SYR IV SCH (18:00)
[2018-05-03] MEDS ORDERED: PANTOPRAZOLE 40MG TABLET PO SCH (07:30)
== END 2018-05-02 18:35 ==
LOC: ER 08:51 → ERHOLD 11:19 → 4TH 14:24
PROVIDERS: ADMIT Family Medicine; ATTEND Family Medicine
DX: J44.1 Chronic obstructive pulmonary disease with (acute) exacerbation (principal); R09.02 Hypoxemia; C34.90 Malignant neoplasm of unspecified part of unspecified bronchus or lung; J98.11 Atelectasis; I11.0 Hypertensive heart disease with heart failure; I50.32 Chronic diastolic (congestive) heart failure; I48.2 Chronic atrial fibrillation; D64.9 Anemia, unspecified; K21.9 Gastro-esophageal reflux disease without esophagitis; F32.9 Major depressive disorder, single episode, unspecified; M06.9 Rheumatoid arthritis, unspecified; M81.0 Age-related osteoporosis without current pathological fracture; E66.9 Obesity, unspecified; Z68.31 Body mass index [BMI] 31.0-31.9, adult; Z79.01 Long term (current) use of anticoagulants
CPT/HCPCS: 36415; 71045; 71046; 80048 ×2; 83605; 83735; 83880; 84145; 85014; 85018; 85025 ×2; 87040 ×2; 87086; 87088; 87804 ×2; 93005; 94640; 96374; 99285; G0378 ×2; J1642; J2930; J3475; J7605 ×2; 81003; 81015; J3590; J7512

== ENCOUNTER 2018-05-17 22:04 | Observation (INO) | payer OTHER ==
--- OUTSIDE RECORDS SUMMARY | 2018-05-17 22:06 | XMS REPORT | Clinical Summary ---
:1950 Author Organization [facility] Address [address] [place] [address] Care Team Providers Name Role Phone Unavailable [...] inflammatory P., MD demyelinating polyneuropathy) Jin Morris ([facility]) MD Darryl 11/09/2017 Procedure visit Oncology Rian Olivera CIDP (chronic inflammatory P., MD demyelinating polyneuropathy) Jin Morris ([facility]) MD Viktor Andrews [facility], RN 10/12/2017 Procedure visit Oncology Rian Olivera CIDP (chronic inflammatory P., MD demyelinating polyneuropathy) Jin Morris ([facility]) MD Bekah Andrews Rachel L, RN 09/12/2017 Procedure visit Oncology Rian Olivera CIDP (chronic inflammatory P., MD demyelinating polyneuropathy) Jin Morris ([facility]) MD Syl Andrews Dana M, RN 08/10/2017 Procedure visit Oncology Rian Olivera CIDP (chronic inflammatory P., MD demyelinating polyneuropathy) Jin Morris ([facility]) MD Kenney Andrews L R RN 07/11/2017 Procedure visit Oncology Rian Olivera CIDP (chronic inflammatory P., MD demyelinating polyneuropathy) Jin Morris ([facility]) (Primary Dx) MD Bakari Andrews Shalonda, RN 06/13/2017 Procedure visit Oncology Rian Olivera Hypogammaglobulinemia ( JONNIE) MD Morena (Primary Dx) Jin Morris MD Alexander, L R RN 05/16/2017 Procedure visit Oncology Rian Olivera Hypogammaglobulinemia ( [facility]) MD Morena (Primary Dx) Jin Morris MD Alexander, L R, RN after 05/16/2017 Family History Medical History Relation Name Comments [...] procedure are in demyelinating the results polyneuropathy) ([facility]) section. BUN Routine 07/11/2017 2:00 CIDP (chronic Results for this PM CDT inflammatory procedure are in demyelinating the results polyneuropathy) ([facility]) section. after 05/16/2017 Results BUN and Creatinine (09/12/2017 11:27 AM CDT) BUN 20 7 - 21 mg/dL [facility] Creatinine 0.80Comment: Specimen 0.57 - 1.25 mg/dL [facility] moderately hemolyzed [facility] EGFR 72Comment: ESTIMATED GFR IS mL/min/1.[address] [facility] BCM NOT ACCURATE CREATININE [facility] CLEARANCE IN PREDICTING GLOMERULAR FILTRATION RATE. ESTIMATED GFR IS NOT APPLICABLE FOR DIALYSIS PATIENTS. Specimen Blood Performing Organization Address City/State/Zipcode Phone Number [facility] [address] [place], [place] [id number] [phone] CENTER BUN (07/11/2017 2:00 PM CDT) BUN 14 7 - 21 mg/dL [facility] Specimen Blood Performing Organization Address [facility]/Zipcode Phone Number [facility] [address] [place] [phone] CENTER Creatinine (07/11/2017 2:00 PM CDT) Creatinine 0.78 0.57 - 1.25 mg/dL [facility] EGFR 74Comment: ESTIMATED GFR IS mL/min/1.73 sq m [facility] NOT ACCURATE CREATININE [facility] CENTER CLEARANCE IN PREDICTING GLOMERULAR FILTRATION RATE. ESTIMATED GFR IS NOT APPLICABLE FOR DIALYSIS PATIENTS. Specimen Blood Performing Organization Address [facility] Phone Number [address] [address] CENTER after 05/16/2017 Insurance Payer Benefit Plan / Group Subscriber ID Type Phone Address MEDICARE MEDICARE A B xxxxxxxxxx Medicare MCR SUPPLEMENT/INDIVIDUAL [employer] xxxxxxxx [facility] Advance Directives For more information, please contact:[address] [phone] Code Status Date Activated Date Inactivated Comments Code ONE 08/09/2013 4:35 PM 08/15/2013 3:38 PM All possible means of support , including: cardiac massage, mechanical ventilation, and defibrillation will be used to support life.
--- OUTSIDE RECORDS SUMMARY | 2018-05-17 22:07 | XMS REPORT ---
:1950 [facility] Address [address] [place] [address] Care Team Providers Name Role Phone JENNIFER [...] UREA NITROGEN (BEAKER) 20 mg/dL 7-21 (test schw=859) CREATININE (BEAKER) (test 0.80 mg/dL 0.57-1.25 Specimen moderately hvvx=391) hemolyzed EGFR (BEAKER) (test 72 mL/min/1.73 sq m ESTIMATED GFR IS NOT vomf=3919) ACCURATE CREATININE CLEARANCE IN PREDICTING GLOMERULAR FILTRATION RATE. ESTIMATED GFR IS NOT APPLICABLE FOR DIALYSIS PATIENTS. [id number] 15:50:00 Test Item Value Reference Range Comments BLOOD UREA NITROGEN (BEAKER) (test nrfi=750) 14 mg/dL 7-21 [id number] 15:50:00 Test Item Value Reference Range Comments CREATININE (BEAKER) (test 0.78 mg/dL 0.57-1.25 wcxu=066) EGFR (BEAKER) (test 74 mL/min/1.73 sq m ESTIMATED GFR IS NOT bysq=1398) ACCURATE CREATININE CLEARANCE IN PREDICTING GLOMERULAR FILTRATION RATE. ESTIMATED GFR IS NOT APPLICABLE FOR DIALYSIS PATIENTS. [id number] 14:55:00 Test Item Value Reference Range Comments BLOOD UREA NITROGEN (BEAKER) (test wnfq=336) 11 mg/dL 7- [id number] 14:55:00 Test Item Value Reference Range Comments CREATININE (BEAKER) (test 0.65 mg/dL 0.57-1.25 jipa=625) EGFR (BEAKER) (test 91 mL/min/1.73 sq m ESTIMATED GFR IS NOT aglf=2192) ACCURATE CREATININE CLEARANCE IN PREDICTING GLOMERULAR FILTRATION RATE. ESTIMATED GFR IS NOT APPLICABLE FOR DIALYSIS PATIENTS. BUN AND [id number] 15:59:00 Test Item Value Reference Range Comments BLOOD UREA NITROGEN 10 mg/dL 7-21 (BEAKER) (test ojuq=347) CREATININE (BEAKER) (test 0.65 mg/dL 0.57-1.25 bxub=660) EGFR (BEAKER) (test 91 mL/min/1.73 sq m ESTIMATED GFR IS NOT birs=2527) ACCURATE CREATININE CLEARANCE IN PREDICTING GLOMERULAR FILTRATION RATE. ESTIMATED GFR IS NOT APPLICABLE FOR DIALYSIS PATIENTS. [id number] 14:45:00 Test Item Value Reference Range Comments BLOOD UREA NITROGEN (BEAKER) (test xblb=429) 13 mg/dL 7-21 [id number] 14:45:00 Test Item Value Reference Range Comments CREATININE (BEAKER) (test 0.74 mg/dL 0.57-1.25 zrii=428) EGFR (BEAKER) (test 79 mL/min/1.73 sq m ESTIMATED GFR IS NOT dvsw=3923) ACCURATE CREATININE CLEARANCE IN PREDICTING GLOMERULAR FILTRATION RATE. ESTIMATED GFR IS NOT APPLICABLE FOR DIALYSIS PATIENTS. BUN AND [id number] 14:55:00 Test Item Value Reference Range Comments BLOOD UREA NITROGEN 13 mg/dL 7-21 (BEAKER) (test irzt=256) CREATININE (BEAKER) (test 0.69 mg/dL 0.57-1.25 xhfx=420) EGFR (BEAKER) (test 85 mL/min/1.73 sq m ESTIMATED GFR IS NOT nfpc=7633) ACCURATE CREATININE CLEARANCE IN PREDICTING GLOMERULAR FILTRATION RATE. ESTIMATED GFR IS NOT APPLICABLE FOR DIALYSIS PATIENTS. [id number] 17:24:00 Test Item Value Reference Range Comments BLOOD UREA NITROGEN (BEAKER) (test jbdq=902) 12 mg/dL 7-21 [id number] 17:24:00 Test Item Value Reference Range Comments CREATININE (BEAKER) (test 0.67 mg/dL 0.57-1.25 ukxj=788) EGFR (BEAKER) (test 89 mL/min/1.73 sq m ESTIMATED GFR IS NOT zizb=2324) ACCURATE CREATININE CLEARANCE IN PREDICTING GLOMERULAR FILTRATION RATE. ESTIMATED GFR IS NOT APPLICABLE FOR DIALYSIS PATIENTS.
[2018-05-17] MEDS ORDERED: METOPROLOL TARTRATE 5 MG/5 ML INJ IV ONE (22:40)
[2018-05-17 22:48] LABS: Absolute Lymphocytes (CBC) 0.4 K/uL (0.7-4.9); Absolute Monocytes 0.8 K/uL (0.1-1.3); Absolute Neutrophil 7.4 K/uL (1.8-8.0); Basophils % 0.3 % (0-1.3); Eosinophils % 0.9 % (0-4.4); Hematocrit 37.7 % (36.0-45.0); Lymphocytes % 4.8 % (15.3-44.8); MPV 8.4 fL (7.6-11.3); Monocytes % 9.2 % (3.3-12.3); RBC Red Blood Cell Count 4.17 M/uL (3.86-4.86)
[2018-05-17] MEDS ORDERED: METOPROLOL TAR 25 MG TAB ONE (23:04)
[2018-05-17 23:11] LABS: Albumin 3.1 g/dL (3.4-5.0); Bilirubin Direct 0.1 mg/dL (0-0.2); Bilirubin Total 0.3 mg/dL (0.2-1.0); Magnesium 1.8 mg/dL (1.8-2.4); Potassium 3.6 mmol/L (3.5-5.1); Protein, Total 6.4 g/dL (6.4-8.2); Troponin (Emerg Dept Use Only) 0.04 ng/mL (0.0-0.045)
[2018-05-17 23:16] LABS: Protime INR 1.16
[2018-05-18] MEDS ORDERED: ACETAMINOPHEN 325 MG TABLET ONE (00:32)
[2018-05-18 00:33] LABS: Anisocytosis 1+; Blood Morphology Comment NOTED (NOT SEEN); Platelet Estimate ADEQ; Polychromasia 1+; Urine White Blood Cell Casts OK
--- NOTE | 2018-05-18 01:42 | ER ---
Nurse's Notes [facility] Name: Marlen Santacruz Age: 67 yrs Sex: Female : 1950 Arrival Date: 05/17/2018 Time: 22:05 Bed 3 Private MD: Diagnosis: Atrial fibrillation and flutter;Acute systolic (congestive) heart failure Presentation: 05/17 22:00 Presenting complaint: EMS states: patient started to have shortness of breath 35 rr5 minutes ago, given breathing treatment then chest pressure felt. her heart rate went to 150's and the patient said it will be relieved by metoprolol . 22:00 Transition of care: patient was received from another setting of care (long-term care [address]), [facility]. Onset of symptoms was May 17, 2018. Risk Assessment: Do you want to hurt yourself or someone else? Patient reports no desire to harm self or others. Initial Sepsis Screen: Does the patient meet any 2 criteria? No. Patient's initial sepsis screen is negative. Does the patient have a suspected source of infection? No. Patient's initial sepsis screen is negative. Care prior to arrival: oxygen at 2 liters via nasal cannula. breathing treatment. 22:00 Method Of Arrival: EMS: [facility] rr5 22:00 Acuity: LINDEN 3 rr5 Historical: - Allergies: 22:05 Ciprofloxacin; rr5 22:05 Morphine; rr5 22:05 PENICILLINS; rr5 22:05 Vancomycin; rr5 22:05 Demerol; rr5 22:05 Keflex; rr5 22:05 Levaquin; rr5 22:05 Sporanox; rr5 22:05 Iodine; rr5 22:05 Ibuprofen; rr5 - Home Meds: 22:05 amitriptyline 50 mg Oral tab 2 tabs once daily [Active]; amlodipine 10 mg tab 1 tab rr5 once daily [Active]; antacid/adán/lido 1:1:1 Swish and swallow 2 teaspoons by mouth 10 minutes before meals and every night at bedtime [Active]; Arava 20 mg Oral tab 1 tab once daily [Active]; Atrovent Inhl twice a day [Active]; Boniva 150 mg Oral tab 1 tab once moly [Active]; Brovana 15 mcg/2 mL inhalation nebu 2 mL 2 times per day [Active]; budesonide 0.25mg Oral CECX 2 caps twice a day [Active]; Cartia XT 120 mg Oral cp24 [Active]; cefpodoxime 200 mg Oral tab 1 tab every 12 hours [Active]; clonidine HCl 0.1 mg Oral tab 3 times per day [Active]; dofetilide Oral 1 cap 2 times per day [Active]; duloxetine 60 mg Oral cpDR [Active]; Eliquis 5 mg Oral tab 1 tab 2 times per day [Active]; Esbriet 267 mg Oral cap 3 caps after meals [Active]; hydralazine 50 mg Oral tab 1 tab 2 times per day [Active]; immune globul,gamma(IgG)-sorb-IgA 0 to 50 mcg/mL intravenous every 4 wks [Active]; leflunomide 10 mg Oral tab 2 tabs once daily [Active]; lisinopril 20 mg Oral tab twice a day [Active]; Lyrica Oral 1 cap [Active]; Xarelto 20 mg Oral tab 1 tab once daily [Active]; sulfasalazine 500 mg Oral tab 1 tab twice a day [Active]; Magnesium Oxide Oral [Active]; Mucinex 600 mg Oral Ta12 1 tab every 12 hours [Active]; Nasonex 50 mcg/actuation Nasal spry once daily [Active]; Angwin 10-325 mg Oral tab [Active]; omeprazole 40 mg Oral cpDR 1 cap 2 times per day [Active]; potassium chloride 10 mEq Oral cpER 2 caps 2 times per day [Active]; prednisone 10 mg Oral tab once daily [Active]; Prednisone Oral [Active]; propafenone 225 mg Oral tab [Active]; sulfasalazine 500 mg Oral tab twice a day [Active]; Tessalon Perles 100 mg Oral cap 2 caps 3 times per day for Cough [Active]; - PMHx: 22:05 ADD/ADHD; Arthritis; Atrial Fib; COPD; Depression; GERD; Hypertension; Lung CA; Polyps rr5 Colon; Polyps Stomach; Staph Infection Left Great Toe; Rheumatoid Arthritis; - Immunization history:: Adult Immunizations up to date. - Social history:: Smoking status: Patient/guardian denies using tobacco, Patient/guardian denies using alcohol, street drugs. - Ebola Screening: : Patient negative for fever greater than or equal to 101.5 degrees Fahrenheit, and additional compatible Ebola Virus Disease symptoms Patient denies exposure to infectious person Patient denies travel to an Ebola-affected area in the 21 days before illness onset. Screenin:20 Abuse screen: Denies threats or abuse. Denies injuries from another. Nutritional rr5 screening: No deficits noted. Tuberculosis screening: No symptoms or risk factors identified. Fall Risk IV access (20 points). Gait- Weak (10 pts.). Total Bolden Fall Scale indicates Low Risk Score (25-44 pts). Fall prevention measures have been instituted. Side Rails Up X 2 Placed close to Nursing Station Frequent Obs/Assesments occuring As available Patient and Family Educated on Fall Prevention Program and strategies. Assessment: 22:05 General: Appears in no apparent distress. uncomfortable, Behavior is calm, cooperative, rr5 appropriate for age. Pain: Complains of pain in chest Pain does not radiate. Pain currently is 8 out of 10 on a pain scale. Quality of pain is described as aching, Pain began gradually, Is intermittent. 22:05 Neuro: Level of Consciousness is awake, alert, obeys commands, Oriented to person, rr5 place, time, situation, Appropriate for age. Cardiovascular: Reports chest pain, Capillary refill < 3 seconds Patient's skin is warm and dry. Rhythm is atrial fibrillation. Respiratory: Reports shortness of breath Airway is patent Respiratory effort is even, unlabored, Respiratory pattern is regular, symmetrical. GI: No signs and/or symptoms were reported involving the gastrointestinal system. : No signs and/or symptoms were reported regarding the genitourinary system. EENT: No signs and/or symptoms were reported regarding the EENT system. Derm: Skin is intact, Skin temperature is warm. Musculoskeletal: Circulation, motion, and sensation intact. Capillary refill < 3 seconds, Range of motion: intact in all extremities. 23:00 Reassessment: Patient appears in no apparent distress at this time. Patient is alert, rr5 oriented x 3, equal unlabored respirations, skin warm/dry/pink. much better now Patient states feeling better. Patient states symptoms have improved. 23:54 Reassessment: Patient appears in no apparent distress at this time. Patient is alert, rr5 oriented x 3, equal unlabored respirations, skin warm/dry/pink. asleep comfortably on bed. Patient denies pain at this time. Patient states feeling better. Patient states symptoms have improved. 05/18 00:30 Reassessment: Patient appears in no apparent distress at this time. Patient is alert, rr5 oriented x 3, equal unlabored respirations, skin warm/dry/pink. complaining of head ache 7/10. ED provider aware with order and carried out. 02:00 Reassessment: Patient appears in no apparent distress at this time. Patient is alert, rr5 oriented x 3, equal unlabored respirations, skin warm/dry/pink. seen and examined by dr. kellogg. patient is for admission and agreed. 03:25 Reassessment: Patient appears in no apparent distress at this time. Patient and/or rr5 family updated on plan of care and expected duration. Pain level reassessed. spoke to hospitalist, for the patient is asking for sleeping pill. hospitalist ordered not to give for now. she needs to be assess in the morning. 04:00 Reassessment: Patient appears in no apparent distress at this time. Patient is alert, rr5 oriented x 3, equal unlabored respirations, skin warm/dry/pink. lying on bed awake,no complaints made. 07:00 Reassessment: RECD REPORT FROM VALERIE DUNBAR. 67YO WF P/W AFIB/RVR, NOW IN AFIB. ADMIT IN bp PROCESS. 08:59 Reassessment: ADMIT CANCELLED, PT TO BE TRANSFERRED FOR ABLATION AND PACER. bp Vital Signs: 05/17 22:00 BP 134 / 89; Pulse 161; Resp 23; Temp 98; Pulse Ox 99% ; Weight 85.73 kg; Height 5 ft. tl2 6 in. (167.64 cm); Pain 8/10; 22:35 BP 121 / 67; Pulse 166; Resp 22; Pulse Ox 98% on 2 lpm NC; rr5 23:00 BP 136 / 98; Pulse 109; Resp 20; Pulse Ox 98% on 2 lpm NC; rr5 23:55 BP 140 / 88; Pulse 95; Resp 19; Pulse Ox 99% on 2 lpm NC; rr5 05/18 01:00 BP 140 / 108; Pulse 99; Resp 19; Pulse Ox 99% on 2 lpm NC; rr5 02:00 BP 141 / 90; Pulse 94; Resp 17; Pulse Ox 99% on 2 lpm NC; rr5 03:00 BP 127 / 76; Pulse 85; Resp 19; Pulse Ox 99% on 2 lpm NC; rr5 04:00 BP 130 / 71; Pulse 81; Resp 17; Pulse Ox 99% on 2 lpm NC; rr5 05:00 BP 141 / 70; Pulse 79; Resp 16; Pulse Ox 99% 2 lpm ; rr5 05/17 22:00 Body Mass Index 30.51 (85.73 kg, 167.64 cm) tl2 ED Course: 05/17 22:05 Patient arrived in ED. ds1 22:05 Patient has correct armband on for positive identification. Placed in gown. Bed in low rr5 position. Call light in reach. Side rails up X2. secured entrance monitor on. Pulse ox on. NIBP on. 22:07 Jose Valadez RN is Primary Nurse. rr5 22:09 Ashwin Bianchi MD is Attending Physician. gs 22:10 Arm band placed on. rr5 22:11 Triage completed. rr5 22:12 Maintain EMS IV. Dressing intact. Good blood return noted. Site clean \T\ dry. Gauge \T\ tl 2 site: 22 g R upper arm. 05/18 01:41 Valentin Ray MD is Hospitalizing Provider. gs 05:42 No provider procedures requiring assistance completed. Patient admitted, IV remains in rr5 place. intact, No redness/swelling at site. 07:12 Primary Nurse role handed off by Jose Valadez RN bp 07:12 Zander Conley, MANJINDER is Primary Nurse. bp 08:29 EKG done, by wireless cellular technician. reviewed by Anthony Childress MD. at1 11:09 EKG done, by wireless cellular technician. reviewed by Anthony Childress MD Repeat EKG. at1 Administered Medications: 05/17 22:38 Drug: Lopressor 5 mg Route: IVP; Site: right upper arm; tl2 05/18 05:45 Follow up: Response: No adverse reaction rr5 05/17 23:00 Drug: Metoprolol 25 mg Route: PO; rr5 05/18 05:45 Follow up: Response: No adverse reaction rr5 00:40 Drug: Tylenol 650 mg Route: PO; rr5 05:44 Follow up: Response: No adverse reaction rr5 01:40 Drug: Albuterol 2.5 mg Route: Inhalation; rr5 05:44 Follow up: Response: No adverse reaction rr5 01:40 Drug: AtroVENT Aerosol 0.5 mg Route: Inhalation; rr5 05:45 Follow up: Response: No adverse reaction rr5 Output: 00:44 Urine: 200ml (Voided); Total: 200ml. rr5 Outcome: 01:42 Decision to Hospitalize by Provider. 05:42 Admitted to ER Hold. Please see [facility] for further documentation. rr5 05:42 Condition: stable 05:42 Instructed on the need for admit. 12:19 Patient left the ED. ms Signatures: Irene Ram ds1 Rocio Mason ms Gomez, Isabela, manager private EKG Tat1 Valerie Curtis RN RN tl2 Ashwin Bianchi MD MD gs Peltier, Brian, RN RN bp Jose Valadez, RN RN rr5 Corrections: (The following items were deleted from the chart) 05/17 22:28 22:00 BP 129 / 112; Pulse 161bpm; Resp 23bpm; Pulse Ox 99%; Temp 98F; 85.73 kg; Height tl2 5 ft. 6 in.; BMI: 30.5; Pain 8/10; rr5
--- NOTE | 2018-05-18 01:43 | EDPHYS ---
Physician Documentation [facility] Name: Marlen Santacruz Age: 67 yrs Sex: Female : 1950 Arrival Date: 05/17/2018 Time: 22:05 Bed 3 Private MD: ED Physician Ashwin Bianchi HPI: 05/18 01:36 This 67 yrs old Female presents to ER via EMS with complaints of AFIB. gs 01:36 The patient presents with a history of irregular heart beat, heart racing. Onset: The gs symptoms/episode began/occurred suddenly, just prior to arrival. Duration: The patient or guardian reports a single episode, that is still ongoing. Modifying factors: The symptoms are aggravated by nothing. The symptoms are alleviated by nothing. Associated signs and symptoms: Pertinent positives: SOB, Pertinent negatives: chest pain. Severity of symptoms: At their worst the symptoms were incapacitating in the emergency department the symptoms are unchanged. The patient has experienced similar episodes in the past, several times. Historical: - Allergies: 05/17 22:05 Ciprofloxacin; rr5 22:05 Morphine; rr5 22:05 PENICILLINS; rr5 22:05 Vancomycin; rr5 22:05 Demerol; rr5 22:05 Keflex; rr5 22:05 Levaquin; rr5 22:05 Sporanox; rr5 22:05 Iodine; rr5 22:05 Ibuprofen; rr5 - Home Meds: 22:05 amitriptyline 50 mg Oral tab 2 tabs once daily [Active]; amlodipine 10 mg tab 1 tab rr5 once daily [Active]; antacid/adán/lido 1:1:1 Swish and swallow 2 teaspoons by mouth 10 minutes before meals and every night at bedtime [Active]; Arava 20 mg Oral tab 1 tab once daily [Active]; Atrovent Inhl twice a day [Active]; Boniva 150 mg Oral tab 1 tab once moly [Active]; Brovana 15 mcg/2 mL inhalation nebu 2 mL 2 times per day [Active]; budesonide 0.25mg Oral CECX 2 caps twice a day [Active]; Cartia XT 120 mg Oral cp24 [Active]; cefpodoxime 200 mg Oral tab 1 tab every 12 hours [Active]; clonidine HCl 0.1 mg Oral tab 3 times per day [Active]; dofetilide Oral 1 cap 2 times per day [Active]; duloxetine 60 mg Oral cpDR [Active]; Eliquis 5 mg Oral tab 1 tab 2 times per day [Active]; Esbriet 267 mg Oral cap 3 caps after meals [Active]; hydralazine 50 mg Oral tab 1 tab 2 times per day [Active]; immune globul,gamma(IgG)-sorb-IgA 0 to 50 mcg/mL intravenous every 4 wks [Active]; leflunomide 10 mg Oral tab 2 tabs once daily [Active]; lisinopril 20 mg Oral tab twice a day [Active]; Lyrica Oral 1 cap [Active]; Xarelto 20 mg Oral tab 1 tab once daily [Active]; sulfasalazine 500 mg Oral tab 1 tab twice a day [Active]; Magnesium Oxide Oral [Active]; Mucinex 600 mg Oral Ta12 1 tab every 12 hours [Active]; Nasonex 50 mcg/actuation Nasal spry once daily [Active]; Hassell 10-325 mg Oral tab [Active]; omeprazole 40 mg Oral cpDR 1 cap 2 times per day [Active]; potassium chloride 10 mEq Oral cpER 2 caps 2 times per day [Active]; prednisone 10 mg Oral tab once daily [Active]; Prednisone Oral [Active]; propafenone 225 mg Oral tab [Active]; sulfasalazine 500 mg Oral tab twice a day [Active]; Tessalon Perles 100 mg Oral cap 2 caps 3 times per day for Cough [Active]; - PMHx: 22:05 ADD/ADHD; Arthritis; Atrial Fib; COPD; Depression; GERD; Hypertension; Lung CA; Polyps rr5 Colon; Polyps Stomach; Staph Infection Left Great Toe; Rheumatoid Arthritis; - Immunization history:: Adult Immunizations up to date. - Social history:: Smoking status: Patient/guardian denies using tobacco, Patient/guardian denies using alcohol, street drugs. - Ebola Screening: : Patient negative for fever greater than or equal to 101.5 degrees Fahrenheit, and additional compatible Ebola Virus Disease symptoms Patient denies exposure to infectious person Patient denies travel to an Ebola-affected area in the 21 days before illness onset. ROS: 05/18 01:36 All other systems are negative. gs Exam: 01:36 Head/Face: Normocephalic, atraumatic. Eyes: Pupils equal round and reactive to light, gs extra-ocular motions intact. Lids and lashes normal. Conjunctiva and sclera are non-icteric and not injected. Cornea within normal limits. Periorbital areas with no swelling, redness, or edema. ENT: Nares patent. No nasal discharge, no septal abnormalities noted. Tympanic membranes are normal and external auditory canals are clear. Oropharynx with no redness, swelling, or masses, exudates, or evidence of obstruction, uvula midline. Mucous membranes moist. Neck: Trachea midline, no thyromegaly or masses palpated, and no cervical lymphadenopathy. Supple, full range of motion without nuchal rigidity, or vertebral point tenderness. No Meningismus. Chest/axilla: Normal chest wall appearance and motion. Nontender with no deformity. No lesions are appreciated. Respiratory: Lungs have equal breath sounds bilaterally, clear to auscultation and percussion. No rales, rhonchi or wheezes noted. No increased work of breathing, no retractions or nasal flaring. Abdomen/GI: Soft, non-tender, with normal bowel sounds. No distension or tympany. No guarding or rebound. No evidence of tenderness throughout. Back: No spinal tenderness. No costovertebral tenderness. Full range of motion. Skin: Warm, dry with normal turgor. Normal color with no rashes, no lesions, and no evidence of cellulitis. MS/ Extremity: Pulses equal, no cyanosis. Neurovascular intact. Full, normal range of motion. Neuro: Awake and alert, GCS 15, oriented to person, place, time, and situation. Cranial nerves II-XII grossly intact. Motor strength 5/5 in all extremities. Sensory grossly intact. Cerebellar exam normal. Normal gait. 01:36 Constitutional: The patient appears alert, awake. 01:36 Cardiovascular: Rate: tachycardic, actual rate is 170 bpm, Rhythm: irregularly irregular, Pulses: no pulse deficits are appreciated. 01:36 ECG was reviewed by the Attending Physician. Vital Signs: 05/17 22:00 BP 134 / 89; Pulse 161; Resp 23; Temp 98; Pulse Ox 99% ; Weight 85.73 kg; Height 5 ft. tl2 6 in. (167.64 cm); Pain 8/10; 22:35 BP 121 / 67; Pulse 166; Resp 22; Pulse Ox 98% on 2 lpm NC; rr5 23:00 BP 136 / 98; Pulse 109; Resp 20; Pulse Ox 98% on 2 lpm NC; rr5 23:55 BP 140 / 88; Pulse 95; Resp 19; Pulse Ox 99% on 2 lpm NC; rr5 05/18 01:00 BP 140 / 108; Pulse 99; Resp 19; Pulse Ox 99% on 2 lpm NC; rr5 02:00 BP 141 / 90; Pulse 94; Resp 17; Pulse Ox 99% on 2 lpm NC; rr5 03:00 BP 127 / 76; Pulse 85; Resp 19; Pulse Ox 99% on 2 lpm NC; rr5 04:00 BP 130 / 71; Pulse 81; Resp 17; Pulse Ox 99% on 2 lpm NC; rr5 05:00 BP 141 / 70; Pulse 79; Resp 16; Pulse Ox 99% 2 lpm ; rr5 05/17 22:00 Body Mass Index 30.51 (85.73 kg, 167.64 cm) tl2 MDM: 05/17 22:21 Patient medically screened. 05/18 01:36 Differential diagnosis: arrythmia, dehydration, stress disorder, CAD,AK. Data reviewed: vital signs, nurses notes, lab test result(s), EKG. Counseling: I had a detailed discussion with the patient and/or guardian regarding: the historical points, exam findings, and any diagnostic results supporting the discharge/admit diagnosis, the need for further work-up and treatment in the hospital. 05/17 22:26 Order name: Basic Metabolic Panel 05/17 22:26 Order name: CBC with Diff 05/17 22:26 Order name: LFT's 05/17 22:26 Order name: Magnesium 05/17 22:26 Order name: NT PRO-BNP 05/17 22:26 Order name: PT-INR 05/17 22:26 Order name: Troponin (emerg Dept Use Only) 05/17 23:12 Order name: Basic Metabolic Panel; Complete Time: 00:16 EDMS 05/17 23:12 Order name: Liver (Hepatic) Function; Complete Time: 00:16 EDMS 05/17 23:12 Order name: Troponin (Emerg Dept Use Only); Complete Time: 00:16 EDMS 05/17 23:12 Order name: NT PRO-BNP; Complete Time: 00:16 EDMS 05/17 23:12 Order name: Magnesium; Complete Time: 00:16 EDMS 05/17 23:20 Order name: CBC with Automated Diff; Complete Time: 01:42 EDMS 05/17 23:21 Order name: Protime (+INR); Complete Time: 00:16 EDMS 05/17 22:26 Order name: XRAY Chest (1 view) 05/17 22:26 Order name: EKG; Complete Time: :26 05/17 22:26 Order name: Cardiac monitoring; Complete Time: :27 05/17 22:26 Order name: EKG - Nurse/Tech; Complete Time: :27 05/17 22:26 Order name: IV Saline Lock; Complete Time: :27 05/17 22:26 Order name: Labs collected and sent; Complete Time: :27 05/18 00:18 Order name: Troponin (emerg Dept Use Only) 05/18 00:33 Order name: CBC Smear Scan; Complete Time: 01:42 EDMS 05/18 01:13 Order name: Troponin (Emerg Dept Use Only); Complete Time: 01:42 EDMS 05/18 07:47 Order name: RAD EDMA 05/18 09:22 Order name: Troponin I [facility] 05/17 22:26 Order name: O2 Per Protocol; Complete Time: :27 05/17 22:26 Order name: O2 Sat Monitoring; Complete Time: 22:27 gs EC:36 Rate is 163 beats/min. Rhythm is irregularly irregular. QRS interval is normal. QT gs interval is normal. Clinical impression: Atrial Fibrillation. Interpreted by me. Administered Medications: 05/17 22:38 Drug: Lopressor 5 mg Route: IVP; Site: right upper arm; tl2 05/18 05:45 Follow up: Response: No adverse reaction rr5 05/17 23:00 Drug: Metoprolol 25 mg Route: PO; rr5 05/18 05:45 Follow up: Response: No adverse reaction rr5 00:40 Drug: Tylenol 650 mg Route: PO; rr5 05:44 Follow up: Response: No adverse reaction rr5 01:40 Drug: Albuterol 2.5 mg Route: Inhalation; rr5 05:44 Follow up: Response: No adverse reaction rr5 01:40 Drug: AtroVENT Aerosol 0.5 mg Route: Inhalation; rr5 05:45 Follow up: Response: No adverse reaction rr5 Disposition: 05/18/18 01:42 Hospitalization ordered by Valentin Ray for Inpatient Admission. Preliminary diagnosis are Atrial fibrillation and flutter, Acute systolic (congestive) heart failure. - Bed requested for Telemetry/MedSurg (Inpatient). - Status is Inpatient Admission. ms - Condition is Stable. - Problem is new. - Symptoms have improved. UTI on Admission? No Critical care time excluding procedures: 01:36 Critical care time: Bedside Care: 10 minutes, Consultation: 10 minutes, Family gs Intervention: 10 minutes. Total time: 30 minutes Signatures: Dispatcher [employer] Meredith Betancourt RN RN kl Solis, Maria ms Knox, Taylor, RN RN tl2 Ashwin Bianchi MD MD gs Roque, Raymond, RN RN rr5 Corrections: (The following items were deleted from the chart) 05:08 01:42 Hospitalization Ordered by Valentin Ray MD for Inpatient Admission. Preliminary diagnosis is Atrial fibrillation and flutter; Acute systolic (congestive) heart failure. Bed requested for Telemetry/MedSurg (Inpatient). Status is Inpatient Admission. Condition is Stable. Problem is new. Symptoms have improved. UTI on Admission? No. 05:57 05:08 05/18/2018 01:42 Hospitalization Ordered by Valentin Ray MD for Inpatient kl Admission. Preliminary diagnosis is Atrial fibrillation and flutter; Acute systolic (congestive) heart failure. Bed requested for [facility] ER HOLD. Status is Inpatient Admission. Condition is Stable. Problem is new. Symptoms have improved. UTI on Admission? No. kl 12:19 05:57 05/18/2018 01:42 Hospitalization Ordered by Valentin Ray MD for Inpatient ms Admission. Preliminary diagnosis is Atrial fibrillation and flutter; Acute systolic (congestive) heart failure. Bed requested for Telemetry/MedSurg (Inpatient). Status is Inpatient Admission. Condition is Stable. Problem is new. Symptoms have improved. UTI on Admission? No. kl
[2018-05-18] MEDS ORDERED: IPRATROPIUM BROM 0.5MG/2.5ML ONE ×2 (01:49→08:05)
[2018-05-18] MEDS ORDERED: ALBUTEROL 2.5 MG/3 ML NEB SOL ONE (01:49)
--- NOTE | 2018-05-18 02:36 | P.HP ---
Certification for Inpatient Patient admitted to: Observation With expected LOS: <2 Midnights Practitioner: I am a practitioner with admitting privileges, knowledge of patient current condition, hospital course, and medical plan of care. Services: Services provided to patient in accordance with Admission requirements found in Title 42 Section 412.3 of the Code of Federal Regulations Patient History Date of Service: 05/18/18 Reason for admission: A.Ember with RVR History of Present Illness: Ms Santacruz is a 67 years old woman with history of COPD, lung cancer, chronic a.ember anticoagulated with Xarelto, who was complaining of SOB in the assisted where she is resident, subsequently, she had a breathing treatment. Then, the HR increased to 160's. EMS was called, EKG showed Hannah at 167 bpm. In ER she has received Lopressor, then her HR decreased to 80's. (seems to be sinus rhythm per monitor). No history of fever, chills or diaphoretic episodes. No chest pain either. Lab work shows normal initial trop I, however, subsequent monitor showed mildly elevation of trop I. No ST-T acute abnormalities in EKG. Allergies meperidine HCl [From Demerol] Allergy (Intermediate, Verified 10/31/17 22:53) Itching/Hives/Rash cephalexin [From Keflex] Allergy (Verified 10/31/17 22:55) Itching/Hives/Rash ciprofloxacin Allergy (Verified 11/01/17 19:32) Hives/Rash iodine Allergy (Verified 12/03/17 11:14) Itching itraconazole [From Sporanox] Allergy (Verified 10/31/17 22:57) Hives/Rash morphine Allergy (Verified 10/31/17 22:56) Itching/Hives/Rash Penicillins Allergy (Verified 10/31/17 22:57) Itching/Hives/Rash Home medications list reviewed: Yes Home Medications: Apixaban [Eliquis] 5 mg PO BID 05/01/18 Arformoterol Tartrate [Brovana] 15 mcg NEB BIDRESP 05/01/18 Budesonide [Pulmicort*] 1 puff IH BID 05/01/18 Clonidine HCl [Clonidine HCl ER] 0.1 mg PO Q8H PRN 05/01/18 Collagenase [Santyl Ointment*] 30 appl TOP DAILY 05/01/18 Diltiazem HCl [Cardizem] 120 mg PO DAILY 05/01/18 Docusate [Colace Cap*] 100 mg PO DAILY 05/01/18 Dofetilide 500 mg PO BID 05/01/18 Duloxetine HCl [Cymbalta] 60 mg PO DAILY 05/01/18 Hydromorphone HCl [Dilaudid] 2 mg PO Q4H PRN 05/01/18 Leflunomide [Arava] 20 mg PO DAILY 05/01/18 Magnesium Oxide [Magnesium] 800 mg PO DAILY 05/01/18 Omeprazole 20 mg PO DAILY 05/01/18 Promethazine HCl 25 mg PO Q8H PRN 05/01/18 Spironolactone [Aldactone] 50 mg PO DAILY 05/01/18 Umeclidinium [place] [Incruse Ellipta] 1 puff IH DAILY 05/01/18 fentaNYL [Fentanyl] 25 mcg TD EVERY 3RD DAY 05/01/18 predniSONE [Deltasone*] 10 mg PO DAILY 05/01/18 sulfaSALAzine [AZULFIDINE EN-tabs*] 1,000 mg PO BID 05/01/18 Furosemide [Lasix*] 40 mg PO DAILY #30 tab 05/02/18 Levalbuterol [Xopenex*] 3 ml NEB [id number] PRN #90 vial 05/02/18 predniSONE [Deltasone*] 10 mg PO SEECOM #15 tab 05/02/18 - Past Medical/Surgical History Has patient received pneumonia vaccine in the past: Yes Diabetic: No -: Rheumatoid Arthritis -: Interstitial Lung Disease -: Obstructive sleep apnea -: [place] -: Osteopenia -: Hyperlipidemia -: COPD, end-stage, oxygen/steroid dependent -: Atrial fibrillation on chronic anti coagulation -: GERD with hiatal hernia -: Depression -: Recently diagnosed lung cancer -: depression -: Tonsilectomy -: Appendectomy, Kelle -: Hysterectomy -: Multiple ganglion cyst removal -: Knee Replacement rohini -: Tendon repair bilateral wrist -: Knuckle removal in toes on R foot/hands -: Multiple bursectomy excision Psychosocial/ Personal History: Patient is a . - Family History Sister -: Hypertension, Lung disease, Other (see notes) Notes: rotoscoliasis, sleep apnea, hyperlipidemia Brother -: Hypertension, Diabetes, Other (see notes) Notes: gout, hyperlipidemia Mother -: Hypertension, Cancer Notes: klatskin tumor Father -: Heart disease, Hypertension, Lung disease, Diabetes, Cancer, Other (see notes ) Notes: lung cancer, gout - Social History Smoking Status: Former smoker Alcohol use: No CD- Drugs: No Caffeine use: Yes Place of Residence: [place] Review of Systems 10-point ROS is otherwise unremarkable Physical Examination - Physical Exam General: Alert, In no apparent distress HEENT: Atraumatic, PERRLA, Mucous membr. moist/pink, EOMI, Sclerae nonicteric Neck: Supple, 2+ carotid pulse no bruit, No LAD, Without JVD or thyroid abnormality Respiratory: Diminished, Expiratory wheezes Cardiovascular: Normal S1 S2, Irregular heart rate/rhythm Gastrointestinal: Normal bowel sounds, No tenderness Musculoskeletal: No tenderness Integumentary: No rashes Neurological: Normal speech, Normal strength at 5/5 x4 extr, Normal tone, Normal affect Lymphatics: No axilla or inguinal lymphadenopathy - Studies Laboratory Data (last 24 hrs) 05/17/18 22:20: PT 13.6 H, INR 1.16 05/17/18 22:20: WBC 8.7, Hgb 11.8 L, Hct 37.7, Plt Count 249 05/17/18 22:20: Sodium 139, Potassium 3.6, BUN 22 H, Creatinine 0.73, Glucose 149 H, Magnesium 1.8, Total Bilirubin 0.3, AST 18, ALT 17, Alkaline Phosphatase 98 Assessment and Plan - Problems (Diagnosis) (1) Atrial fibrillation with RVR Onset Date: 10/21/16 Current Visit: No Status: Acute (2) End stage COPD Onset Date: 01/30/18 Current Visit: No Status: Acute (3) Lung cancer Current Visit: No Status: Suspected Qualifiers: Laterality: unspecified laterality Lung location: unspecified part of lung Qualified Code(s): C34.90 - Malignant neoplasm of unspecified part of unspecified bronchus or lung - Plan will admit Ms Santacruz due to A.Fib with RVR with mildly cardiac markers elevation. Will resume her medication as soon is verified. Will order Xopenx for breathing treatment. Consult Cardiology for medication optimization. - Advance Directives Does patient have a Living Will: Yes Does patient have a Durable POA for Healthcare: Yes - Code Status/Comfort Care Code Status Assessed: Yes Code Status: Full Code
[2018-05-18] MEDS ORDERED: ONDANSETRON 4 MG/2 ML VIAL IV PRN (05:53)
[2018-05-18] MEDS ORDERED: ALBUTEROL 2.5 MG/3 ML NEB SOL NEB PRN (05:53)
--- NOTE | 2018-05-18 07:06 | EKG ---
Test Date: 2018-05-17 Test Time: 22:09:14 Receipt And Report Clerk: BENJI MEASUREMENT RESULTS: Intervals: Rate: 163 SD: QRSD: 80 QT: 296 QTc: 487 [place]: P: SD: QRS: 21 T: 125 INTERPRETIVE STATEMENTS: Atrial fibrillation with rapid ventricular response with premature ventricular or aberrantly conducted complexes ST & T wave abnormality, consider lateral ischemia or digitalis effect Abnormal ECG Compared to ECG 03/31/2018 09:00:29 Ventricular premature complex(es) now present ST (T wave) deviation now present Possible ischemia now present Sinus tachycardia no longer present T-wave abnormality no longer present Electronically Signed On 05-18-18 07:05:44 SPINNER TENDER by Jackson Cooper
--- NOTE | 2018-05-18 07:46 | RAD REPORT ---
EXAM DESCRIPTION: RAD - Chest Single View - 05/17/2018 10:56 pm CLINICAL HISTORY: Shortness of breath, tachycardia, COPD COMPARISON: May 02, May 01 TECHNIQUE: AP portable chest image was obtained 2250 hours . FINDINGS: Lung volumes are low which accentuates already prominent baseline interstitial pattern. Le ft-sided Port-A-Cath is in place. New medial right base opacification is evident. Patient has chronic upper right lung field opacification that is accentuated on the current examination. Fullness of the right side mediastinum noted. Heart size is upper normal but not clearly different. No measurable pl eural effusion and no pneumothorax. No acute bony abnormality seen. No acute aortic findings suspecte d. IMPRESSION: Extensive baseline interstitial lung disease accentuated by shallow inspiration. Right upper lung field findings are more pronounced which may be shallow inspiration artifact. Medial right base new opacification concerning for pneumonia.
[2018-05-18] MEDS: IPRATROPIUM BROM 0.5MG/2.5ML NEB SCH ×3 (07:57→19:44)
[2018-05-18] MEDS ORDERED: METOPROLOL TARTRATE 5 MG/5 ML INJ IV PRN (11:21)
[2018-05-18 12:01] VITALS: BMI 30.4
--- NOTE | 2018-05-18 13:54 | CON ---
A 67-year-old woman. Attending Physician: Dr. West. Reason For Consult: Atrial fib. History Of Present Illness: Ms. Santacruz has had atrial fib off and on for some time. She also has in flammatory arthritis. I am not sure if it is lupus or rheumatoid or some complex combination of thos e. She also has underlying lung cancer and has gone through chemo and radiation therapy and has rece ntly been pronounced free of disease. For her AFib, she has undergone therapy with Betapace and unde rgone an AFib ablation. Has recurrent AFib. She has been on [facility], [facility], the patient says she has been taking it and Dr. Ra wisdom and Dr. Moreno who did this work with her, thought she was on it. She is also on Eliquis. In the emergency room, she was given some metoprolol IV and is now in sinus rhythm again, wants to go back h ome to the skilled nursing. I think her level of AFib control is very poor. She has been in the hospit al twice in the last 2 weeks and has numerous other episodes of AFib despite being treated with Tikos yn, so I am going to recommend that we transfer her to Dr. Downs and Dr. Moreno and Dr. Isaacs to see i f maybe she should have a complete AV node ablation and pacemaker. Continue on the Tikosyn, continue on Eliquis. The patient is reluctant to do that, so she may elect to go home today, stay on Tikosyn and Eliquis and see Dr. Moreno as an outpatient. JAVON/KSENIA Voice ID: [id number] Report ID: [id number]
[2018-05-18] MEDS ORDERED: METHYL SALICYLATE TOP PRN (15:38)
[2018-05-18] MEDS ORDERED: PROMETHAZINE 25 MG TABLET PO PRN (15:38)
[2018-05-18] MEDS ORDERED: BENZONATATE PO PRN (15:38)
[2018-05-18] MEDS ORDERED: LOPERAMIDE HCL 2 MG CAPSULE PO PRN (15:38)
[2018-05-18] MEDS ORDERED: LEVALBUTEROL 1.25 MG/3 ML NEB NEB PRN (15:38)
[2018-05-18] MEDS ORDERED: CLONIDINE HCL 0.1 MG PO PRN (15:38)
[2018-05-18] MEDS ORDERED: MENTHOL TOP PRN (15:38)
[2018-05-18] MEDS ORDERED: HYDROMORPHONE ORAL 2 MG TAB PO PRN (15:38)
[2018-05-18] MEDS: DOFETILIDE 500 MG PO SCH ×2 (15:40→20:20)
[2018-05-18] MEDS ORDERED: BENZONATATE 100 MG CAP PO PRN (16:45)
[2018-05-18] MEDS ORDERED: cloNIDine HCl 0.1 MG TAB PO PRN (16:49)
[2018-05-18] MEDS ORDERED: FENTANYL 25 MCG/PATCH TD SCH (17:00)
[2018-05-18] MEDS ORDERED: PANTOPRAZOLE 40MG TABLET PO SCH (17:00)
[2018-05-18] MEDS ORDERED: ARFORMOTEROL TARTRATE 15 MCG/2 ML VIAL.NEB NEB SCH (20:00)
[2018-05-18 20:54] VITALS: O2SAT 96
[2018-05-18] MEDS ORDERED: PROMOD 30 ML DOSE PO SCH (21:00)
[2018-05-18] MEDS ORDERED: SULFASALAZINE 500 MG TAB PO SCH (21:00)
[2018-05-18] MEDS ORDERED: HOME MED 1 EA UNK (Apixaban [Eliquis] 5 MG) PO SCH (21:00)
[2018-05-18] MEDS ORDERED: BUDESONIDE 0.5 MG/2 ML NEB IH SCH (21:00)
[2018-05-18] MEDS ORDERED: APIXABAN 5 MG TABLET PO SCH (21:00)
[2018-05-18 22:12] VITALS: BP 127/68; TEMP 98.4
--- NOTE | 2018-05-19 07:15 | DS ---
Date of Discharge: 05/18/2018 Consultants: Dr. Cooper with Cardiology. Discharge Diagnoses: 1.Atrial fibrillation with rapid ventricular response. 2.End-stage chronic obstructive pulmonary disease. 3.Lung cancer. 4.Rheumatoid arthritis. 5.Interstitial lung disease. 6.Obstructive sleep apnea. 7.Osteopenia. 8.Hyperlipidemia. 9.Gastroesophageal reflux disease with hiatal hernia. 10.Major depressive disorder, recurrent. 11.Obesity, body mass index of 30.5. Hospital Course: The patient is a 67-year-old female with a complicated past medical history, who david s been in the hospital several times recently, comes in with AFib with RVR. The patient does take Xa relto. She was complaining of shortness of breath in the halfway, and was given a breathing yogi atment. Her heart rate went up to the 160s, and showed atrial fibrillation on EKG. The patient was given Lopressor, and heart rate came down to the 80s. The patient did have some elevated troponin le cassandra at 0.07, initial level was normal. The patient did complain of some palpitations, but no signifi cant chest pain. The patient was seen by Dr. Cooper, who contacted Dr. Guillen, mechanical field engineer at [facility], where the patient has all of her consultants, and recommendations were made for transfer for ablation and pacemaker placement. The patient was started on her home medications including Card izem and defibrotide for her heart rate. The patient's heart rate stayed stable for the most part, d id have some spikes in the 140s, which improved with Lopressor IV. The patient was then accepted by a hospitalist at [facility], and was transferred once a bed was arranged. Total time transferring the patient was 47 minutes. Physical Examination: General: Awake, alert, oriented x3. Elderly female, appears older than stated age, obese. CV: S1, S2. Irregularly irregular. Peripheral pulses weak. Respiratory: Moving air well bilaterally. No wheezing. Abdomen: Soft, nontender, nondistended. Positive bowel sounds. Extremities: No clubbing, cyanosis, or edema. Neurologic: Nonfocal. SA/MODL Voice ID: [id number] Report ID: [id number]
--- NOTE | 2018-05-19 08:58 | EKG ---
Test Date: 2018-05-18 Test Time: 10:57:15 Campground Caretaker: JEREMIE MEASUREMENT RESULTS: Intervals: Rate: 98 AK: 144 QRSD: 88 QT: 394 QTc: 503 [place]: P: 31 AK: 144 QRS: 24 T: 93 INTERPRETIVE STATEMENTS: Sinus rhythm with premature supraventricular complexes Nonspecific ST and T wave abnormality Prolonged QT Abnormal ECG Compared to ECG 05/18/2018 08:17:09 ST (T wave) deviation now present Aberrant conduction of supraventricular beat(s) no longer present Electronically Signed On 05-19-18 08:57:25 COMMODITIES REQUIREMENTS ANALYST by Jackson Cooper
[2018-05-19] MEDS ORDERED: DOCUSATE NA 100 MG CAP PO SCH (09:00)
[2018-05-19] MEDS ORDERED: DULOXETINE 30 MG CAP PO SCH (09:00)
[2018-05-19] MEDS ORDERED: DILTIAZEM HCL 120 MG SR CAP PO SCH (09:00)
[2018-05-19] MEDS ORDERED: HOME MED 1 EA UNK (Duloxetine Hcl [Cymbalta] 60 MG) PO SCH (09:00)
[2018-05-19] MEDS ORDERED: DILTIAZEM HCL 120 MG PO SCH (09:00)
[2018-05-19] MEDS ORDERED: LEFLUNOMIDE 10 MG PO SCH (09:00)
[2018-05-19] MEDS ORDERED: SPIRONOLACTONE 25 MG TABLET PO SCH (09:00)
[2018-05-19] MEDS ORDERED: HOME MED 1 EA UNK (Spironolactone [Aldactone] 50 MG) PO SCH (09:00)
[2018-05-19] MEDS ORDERED: COLLAGENASE 30 GM OINTMENT TOP SCH (09:00)
[2018-05-19] MEDS ORDERED: FUROSEMIDE 40 MG TABLET PO SCH (09:00)
[2018-05-19] MEDS ORDERED: predniSONE 20 MG TAB PO SCH (09:00)
[2018-05-19] MEDS ORDERED: HOME MED 1 EA UNK (Omeprazole [Omeprazole] 20 MG) PO SCH (09:00)
[2018-05-21] MEDS ORDERED: HOME MED 1 EA UNK (Fentanyl [Fentanyl] 25 MCG) TD SCH (09:00)
== END 2018-05-18 22:37 | disposition short-term general hospital (02) ==
LOC: ER 22:04 → ERHOLD 05-18 05:08 → 2ND 05-18 11:50
PROVIDERS: ADMIT Internal Medicine; ATTEND Internal Medicine
DX: I48.2 Chronic atrial fibrillation (principal); J44.9 Chronic obstructive pulmonary disease, unspecified; M06.9 Rheumatoid arthritis, unspecified; G47.33 Obstructive sleep apnea (adult) (pediatric); M85.80 Other specified disorders of bone density and structure, unspecified site; E78.5 Hyperlipidemia, unspecified; K21.9 Gastro-esophageal reflux disease without esophagitis; K44.9 Diaphragmatic hernia without obstruction or gangrene; F33.9 Major depressive disorder, recurrent, unspecified; E66.9 Obesity, unspecified; Z68.30 Body mass index [BMI] 30.0-30.9, adult; Z85.118 Personal history of other malignant neoplasm of bronchus and lung; Z79.01 Long term (current) use of anticoagulants
CPT/HCPCS: 36415; 71045; 80048; 80076; 83735; 83880; 84484 ×4; 85025; 85610; 93005 ×3; 94640; 96374; 99285; G0378 ×2; J7605; J3590; J7512

== ENCOUNTER 2018-06-05 10:50 | Emergency (ER) | payer OTHER ==
--- OUTSIDE RECORDS SUMMARY | 2018-06-05 10:53 | XMS REPORT | Clinical Summary ---
:1950 Author Organization [facility] Address [address] [place] [address] Care Team Providers Name Role Phone Unavailable [...] Once 06/13/2017 Active (PRIVIGEN) injection 45 g sodium chloride 0.9% (NS) IV Once 06/13/2017 06/13/2017 Ended infusion diphenhydrAMINE (BENADRYL) 25 mg IV Once 06/13/2017 06/13/2017 Ended injection 25 mg immune globulin (human) 45 g IV Once 06/13/2017 06/13/2017 Ended (PRIVIGEN) injection 45 g immune globulin (human) 45 g IV Once 07/11/2017 07/11/2017 Ended and maltose (OCTAGAM) injection 45 gIndications: CIDP (chronic inflammatory demyelinating polyneuropathy) ([facility]) sodium chloride 0.9% (NS) IV Once 07/11/2017 07/11/2017 Ended infusionIndications: CIDP (chronic inflammatory demyelinating polyneuropathy) ([facility]) diphenhydrAMINE (BENADRYL) 25 mg IV Once 07/11/2017 [...] Care Team Description 12/07/2017 Procedure visit Oncology Joselin, Rian CIDP (chronic inflammatory P., MD demyelinating polyneuropathy) Jin Morris ([facility]) MD Darryl 11/09/2017 Procedure visit Oncology Rian Olivera CIDP (chronic inflammatory P., MD demyelinating polyneuropathy) Jin Morris ([facility]) MD Viktor Andrews Shannon, RN 10/12/2017 Procedure visit Oncology JoselinRian osborn CIDP (chronic inflammatory P., MD demyelinating polyneuropathy) Jin Morris ([facility]) MD Bekah Andrews Rachel L, RN 09/12/2017 Procedure visit Oncology JoselinRian osborn CIDP (chronic inflammatory P., MD demyelinating polyneuropathy) Jin Morris ([facility]) MD Syl Andrews Dana M, RN 08/10/2017 Procedure visit Oncology JoselinRian osborn CIDP (chronic inflammatory P., MD demyelinating polyneuropathy) Jin Morris ([facility]) MD Kenney Andrews L R RN 07/11/2017 Procedure visit Oncology Joselin, Rian CIDP (chronic inflammatory P., MD demyelinating polyneuropathy) Jin Morris ([facility]) (Primary Dx) MD Bakari Andrews Shalonda, RN 06/13/2017 Procedure visit Oncology Rian Olivera Hypogammaglobulinemia ( [facility]) MD Morena (Primary Dx) Jin Morris MD Alexander, L R, RN after 06/04/2017 Family History Medical History Relation Name Comments [...] 09/12/2017 10:50 AM CDT Plan of Treatment Not on file Procedures Procedure Name Priority Date/Time Associated Diagnosis Comments BUN AND CREATININE Routine 09/12/2017 11:27 Results for this AM CDT procedure are in the results section. CREATININE Routine 07/11/2017 2:00 CIDP (chronic Results for this PM CDT inflammatory procedure are in demyelinating the results polyneuropathy) ([facility]) section. BUN Routine 07/11/2017 2:00 CIDP (chronic Results for this PM CDT inflammatory procedure are in demyelinating the results polyneuropathy) ([facility]) section. after 06/04/2017 Results BUN and Creatinine (09/12/2017 11:27 AM CDT) BUN 20 7 - 21 mg/dL [facility] Creatinine 0.80Comment: Specimen 0.57 - 1.25 mg/dL [facility] moderately hemolyzed [facility] EGFR 72Comment: ESTIMATED GFR IS mL/min/1.73 sq m [facility] NOT ACCURATE CREATININE [facility] CLEARANCE IN PREDICTING GLOMERULAR FILTRATION RATE. ESTIMATED GFR IS NOT APPLICABLE FOR DIALYSIS PATIENTS. Specimen Blood Performing Organization Address City/[facility]/Zipcode Phone Number [address] [address] [phone] CENTER BUN (07/11/2017 2:00 PM CDT) BUN 14 7 - 21 mg/dL [facility] Specimen Blood Performing Organization Address City/[facility]/Zipcode Phone Number [address] [address] CENTER Creatinine (07/11/2017 2:00 PM CDT) Creatinine 0.78 0.57 - 1.25 mg/dL [facility] EGFR 74Comment: ESTIMATED GFR IS mL/min/1.73 sq m [facility] NOT ACCURATE CREATININE [facility] CLEARANCE IN PREDICTING GLOMERULAR FILTRATION RATE. ESTIMATED GFR IS NOT APPLICABLE FOR DIALYSIS PATIENTS. Specimen Blood Performing Organization Address City/State/Zipcode Phone Number [facility] [address] [place] [phone] CENTER after 06/04/2017 Insurance Payer Benefit Plan / Group Subscriber ID Type Phone Address MEDICARE MEDICARE A B xxxxxxxxxx Medicare MCR SUPPLEMENT/INDIV[employer]UAL [employer] xxxxxxxx [facility] Advance Directives For more information, please contact:[address] [phone] Code Status Date Activated Date Inactivated Comments Code ONE 08/09/2013 4:35 PM 08/15/2013 3:38 PM All possible means of support , including: cardiac massage, mechanical ventilation, and defibrillation will be used to support life.
--- OUTSIDE RECORDS SUMMARY | 2018-06-05 10:54 | XMS REPORT ---
:1950 Author Organization [facility] Address [address] [place] [address] Care Team Providers Name Role Phone JENNIFER [...] UREA NITROGEN (BEAKER) 20 mg/dL 7-21 (test ijsq=739) CREATININE (BEAKER) (test 0.80 mg/dL 0.57-1.25 Specimen moderately gyiy=606) hemolyzed EGFR (BEAKER) (test 72 mL/min/1.73 sq m ESTIMATED GFR IS NOT ppcl=2619) ACCURATE CREATININE CLEARANCE IN PREDICTING GLOMERULAR FILTRATION RATE. ESTIMATED GFR IS NOT APPLICABLE FOR DIALYSIS PATIENTS. [id number] 15:50:00 Test Item Value Reference Range Comments BLOOD UREA NITROGEN (BEAKER) (test xunn=230) 14 mg/dL 7-21 [id number] 15:50:00 Test Item Value Reference Range Comments CREATININE (BEAKER) (test 0.78 mg/dL 0.57-1.25 bljm=381) EGFR (BEAKER) (test 74 mL/min/1.73 sq m ESTIMATED GFR IS NOT xtpi=8302) ACCURATE CREATININE CLEARANCE IN PREDICTING GLOMERULAR FILTRATION RATE. ESTIMATED GFR IS NOT APPLICABLE FOR DIALYSIS PATIENTS. [id number] 14:55:00 Test Item Value Reference Range Comments BLOOD UREA NITROGEN (BEAKER) (test nedn=913) 11 mg/dL 7-21 [id number] 14:55:00 Test Item Value Reference Range Comments CREATININE (BEAKER) (test 0.65 mg/dL 0.57-1.25 zlrk=858) EGFR (BEAKER) (test 91 mL/min/1.73 sq m ESTIMATED GFR IS NOT piny=5187) ACCURATE CREATININE CLEARANCE IN PREDICTING GLOMERULAR FILTRATION RATE. ESTIMATED GFR IS NOT APPLICABLE FOR DIALYSIS PATIENTS. BUN AND [id number] 15:59:00 Test Item Value Reference Range Comments BLOOD UREA NITROGEN 10 mg/dL 7-21 (BEAKER) (test bdro=490) CREATININE (BEAKER) (test 0.65 mg/dL 0.57-1.25 apoy=402) EGFR (BEAKER) (test 91 mL/min/1.73 sq m ESTIMATED GFR IS NOT svrs=4642) ACCURATE CREATININE CLEARANCE IN PREDICTING GLOMERULAR FILTRATION RATE. ESTIMATED GFR IS NOT APPLICABLE FOR DIALYSIS PATIENTS. [id number] 14:45:00 Test Item Value Reference Range Comments BLOOD UREA NITROGEN (BEAKER) (test akht=116) 13 mg/dL 7-21 [id number] 14:45:00 Test Item Value Reference Range Comments CREATININE (BEAKER) (test 0.74 mg/dL 0.57-1.25 dkvt=017) EGFR (BEAKER) (test 79 mL/min/1.73 sq m ESTIMATED GFR IS NOT lbgx=1115) ACCURATE CREATININE CLEARANCE IN PREDICTING GLOMERULAR FILTRATION RATE. ESTIMATED GFR IS NOT APPLICABLE FOR DIALYSIS PATIENTS. BUN AND [id number] 14:55:00 Test Item Value Reference Range Comments BLOOD UREA NITROGEN 13 mg/dL 7-21 (BEAKER) (test iayf=960) CREATININE (BEAKER) (test 0.69 mg/dL 0.57-1.25 nzig=814) EGFR (BEAKER) (test 85 mL/min/1.73 sq m ESTIMATED GFR IS NOT kevk=1615) ACCURATE CREATININE CLEARANCE IN PREDICTING GLOMERULAR FILTRATION RATE. ESTIMATED GFR IS NOT APPLICABLE FOR DIALYSIS PATIENTS. [id number] 17:24:00 Test Item Value Reference Range Comments BLOOD UREA NITROGEN (BEAKER) (test oooc=812) 12 mg/dL 7-21 [id number] 17:24:00 Test Item Value Reference Range Comments CREATININE (BEAKER) (test 0.67 mg/dL 0.57-1.25 pcvb=039) EGFR (BEAKER) (test 89 mL/min/1.73 sq m ESTIMATED GFR IS NOT vena=1727) ACCURATE CREATININE CLEARANCE IN PREDICTING GLOMERULAR FILTRATION RATE. ESTIMATED GFR IS NOT APPLICABLE FOR DIALYSIS PATIENTS.
[2018-06-05] MEDS ORDERED: ALBUTEROL 2.5 MG/3 ML NEB SOL ONE (11:39)
[2018-06-05] MEDS ORDERED: METHYLPREDNISOLONE 125 MG INJ ONE (11:39)
[2018-06-05] MEDS ORDERED: IPRATROPIUM BROM 0.5MG/2.5ML ONE (11:40)
[2018-06-05] MEDS ORDERED: NA CHLORIDE 0.9% 1,000 ML ONE (11:40)
[2018-06-05] MEDS ORDERED: CEFEPIME 1 GM/100 ML BAG IV ONE (11:40)
--- NOTE | 2018-06-05 11:43 | RAD REPORT ---
EXAM DESCRIPTION: RAD - Chest Single View - 06/05/2018 11:37 am CLINICAL HISTORY: CONGESTION Chest pain. COMPARISON: Chest Single View dated 05/17/2018; Chest Pa And Lat (2 Views) dated 05/02/2018; Chest Sing le View dated 05/01/2018; Chest Single View dated 03/18/2018 FINDINGS: Portable technique limits examination quality. Extensive bilateral pulmonary opacities, greater on the right, moderately progressive since the anthony rative study likely representing pneumonia. The heart is normal in size. Left-sided port catheter its tip in the SVC.Cervical hardware plate is present.
[2018-06-05] MEDS ORDERED: AZITHROMYCIN IV 500 MG in NA CHLORIDE 0.9% 250 ML IVPB ONE (11:45)
[2018-06-05 11:47] LABS: Absolute Lymphocytes (CBC) 0.1 K/uL (0.7-4.9); Absolute Monocytes 0.5 K/uL (0.1-1.3); Absolute Neutrophil 7.8 K/uL (1.8-8.0); Basophils % 0.7 % (0-1.3); Eosinophils % 0.5 % (0-4.4); Hematocrit 30.5 % (36.0-45.0); Lymphocytes % 1.4 % (15.3-44.8); MPV 8.6 fL (7.6-11.3); RBC Red Blood Cell Count 3.48 M/uL (3.86-4.86)
[2018-06-05 11:58] LABS: Protime INR 1.44
[2018-06-05 12:06] LABS: ALT/SGPT 8 U/L (12-78); AST/SGOT 11 U/L (15-37); Albumin 2.2 g/dL (3.4-5.0); Alkaline Phosphatase 107 U/L (45-117); BUN Blood Urea Nitrogen 13 mg/dL (7-18); Bicarbonate 32 mmol/L (21-32); Bilirubin Direct 0.2 mg/dL (0-0.2); Bilirubin Total 0.4 mg/dL (0.2-1.0); CKMB Creatine Kinase MB 2.3 ng/mL (0.3-3.6); Creatine Phosphokinase 14 U/L (26-192); Glucose Level 103 mg/dL (74-106); Lipase 40 U/L (73-393); Magnesium 2.1 mg/dL (1.8-2.4); NT PRO-BNP 5707 pg/mL (<125); Protein, Total 6.1 g/dL (6.4-8.2); Sodium Level 138 mmol/L (136-145); Troponin (Emerg Dept Use Only) 0.02 ng/mL (0.0-0.045)
[2018-06-05 12:09] LABS: Anisocytosis 1+; Blood Morphology Comment NOTED (NOT SEEN); Platelet Estimate ADEQ; Platelets, Giant FEW; Polychromasia 1+; Toxic Granulation 2+; Urine White Blood Cell Casts OK
--- NOTE | 2018-06-05 13:05 | ER ---
Nurse's Notes [facility] Name: Marlen Santacruz Age: 67 yrs Sex: Female : 1950 Arrival Date: 06/05/2018 Time: 10:[address] Private MD: Caleb Patel H Diagnosis: Bronchopneumonia, unspecified organism Presentation: 06/05 10:55 Presenting complaint: EMS states: pt having shortness of breath with productive cough sg for several days, saturation of 84 % on 4 lpm via [place] FIRMWARE ARCHITECT, pt denies pain, denies N/V/D/Fever at this time. Transition of care: patient was received from another setting of care (long-term care facility), [facility]. Onset of symptoms was June 05, 2018. Risk Assessment: Do you want to hurt yourself or someone else? Patient reports no desire to harm self or others. Initial Sepsis Screen: Does the patient meet any 2 criteria? RR > 20 per min. Does the patient have a suspected source of infection? Yes: Productive cough/pneumonia. Care prior to arrival: Med neb given. Oxygen administered. via a nebulizer mask, IV attempt per EMS, non successful. 10:55 Method Of Arrival: EMS: [facility] sg 10:55 Acuity: LINDEN 2 sg Historical: - Allergies: 10:58 Ciprofloxacin; sg 10:58 Demerol; sg 10:58 Keflex; sg 10:58 Levaquin; sg 10:58 Sporanox; sg 10:58 Iodine; sg 10:58 Morphine; sg 10:58 Ibuprofen; sg 10:58 PENICILLINS; sg 10:58 Vancomycin; sg - Home Meds: 11:03 amlodipine 10 mg tab 1 tab once daily [Active]; Arava 20 mg Oral tab 1 tab once daily sg [Active]; Atrovent Inhl twice a day [Active]; Boniva 150 mg Oral tab 1 tab once moly [Active]; Brovana 15 mcg/2 mL inhalation nebu 2 mL 2 times per day [Active]; budesonide 0.25mg Oral CECX 2 caps twice a day [Active]; cefpodoxime 200 mg Oral tab 1 tab every 12 hours [Active]; duloxetine 60 mg Oral cpDR [Active]; Eliquis 5 mg Oral tab 1 tab 2 times per day [Active]; 18:45 dofetilide Oral 1 cap 2 times per day [Active]; Lyrica Oral 1 cap [Active]; Magnesium aa5 Oxide Oral [Active]; Mucinex 600 mg Oral Ta12 1 tab every 12 hours [Active]; Nasonex 50 mcg/actuation Nasal spry once daily [Active]; Adrian 10-325 mg Oral tab [Active]; omeprazole 40 mg Oral cpDR 1 cap 2 times per day [Active]; potassium chloride 10 mEq Oral cpER 2 caps 2 times per day [Active]; sulfasalazine 500 mg Oral tab 1 tab twice a day [Active]; Tessalon Perles 100 mg Oral cap 2 caps 3 times per day for Cough [Active]; 18:56 Prednisone 80 mg Oral [Active]; Dilaudid Rectal [Active]; Xanax Oral [Active]; sg Phenergan Oral [Active]; - PMHx: 11:11 ADD/ADHD; Arthritis; Atrial Fib; COPD; Depression; GERD; Hypertension; Lung CA; Polyps sg Colon; Polyps Stomach; Staph Infection Left Great Toe; Rheumatoid Arthritis; - Social history:: Patient/guardian denies using alcohol, street drugs, The patient lives in a long term. - Family history:: not pertinent. Screenin:00 Abuse screen: Denies threats or abuse. Denies injuries from another. Nutritional sg screening: No deficits noted. Tuberculosis screening: No symptoms or risk factors identified. Never had TB. Fall Risk Assessment: 11:00 General: Appears distressed, ill, unkempt, well developed, well nourished, Behavior is sg calm, cooperative, appropriate for age. Pain: Denies pain. Neuro: Level of Consciousness is alert, obeys commands, Oriented to person, place, situation, Speech is normal, Facial symmetry appears normal. Cardiovascular: Capillary refill is brisk in bilateral fingers Patient's skin is warm and dry. Chest pain is denied. Cardiovascular: Rhythm is ventricular pacer with capture. Respiratory: Airway is patent Respiratory effort is labored, with retractions, shallow, Respiratory pattern is symmetrical, tachypnea. GI: Abdomen is round non-distended. : No signs and/or symptoms were reported regarding the genitourinary system. EENT: No signs and/or symptoms were reported regarding the EENT system. Derm: Skin is dry, Skin is pale, Skin temperature is warm Reports sore on bottom. Musculoskeletal: Circulation, motion, and sensation intact. Range of motion: intact in all extremities, Swelling absent. 12:28 Reassessment: Pacemaker- [employer], Serial Number- [id number], Model Number- [id number]. sg 13:30 Reassessment: Patient appears in no apparent distress at this time. Patient and/or sg family updated on plan of care and expected duration. Pain level reassessed. pt sister Cristina remains at bedside at this time, pt tolerating BiPap well, reports feeling better at this time. 14:30 Reassessment: Patient appears in no apparent distress at this time. Patient and/or sg family updated on plan of care and expected duration. Pain level reassessed. Patient states feeling better. 15:30 Reassessment: Patient appears in no apparent distress at this time. Patient and/or sg family updated on plan of care and expected duration. Pain level reassessed. pt sister remains at bedside at this time, reports sacral area is feeling better at this time, reports having relief while positioned on the side with wedges for support. Vital Signs: 11:00 BP 131 / 88; Pulse 80; Resp 38; Pulse Ox 87% on 4 lpm NC; Weight 115.67 kg; Pain 0/10; sg 11:02 Pulse Ox 97% on 50% BiPAP; sg 11:05 Temp 97.7; sg 12:20 BP 133 / 82; Pulse 82; Resp 30; Pulse Ox 100% on 50% BiPAP; Weight 44.32 kg; sg 17:47 BP 115 / 70; Pulse 80; Resp 27; Pulse Ox 100% on 35% BiPAP; sg 18:40 BP 100 / 89; Pulse 81 MON; Resp 20; Temp 97.6; Pulse Ox 98% on 35% BiPAP; Pain 0/10; sg 19:29 BP 151 / 83; Pulse 81; Resp 28; Pulse Ox 94% on 35% BiPAP; Pain 0/10; sg Vitals: 11:05 Cardiac Rhythm Assessment Paced. ED Course: 10:56 Patient arrived in ED. 10:57 Caleb Patel DO is Private Physician. sg 11:00 Patient has correct armband on for positive identification. Bed in low position. Call sg light in reach. Side rails up X2. child monitor on. Pulse ox on. NIBP on. Warm blanket given. Pillow given. Verbal reassurance given. Head of bed elevated. Turned to right side. 11:01 Ester Figueora MD is Attending Physician. ma2 11:07 Triage completed. sg 11:09 Arm band placed on. sg 11:12 EKG done, by veterinary technician instructor. reviewed by Ester Figueroa MD. at1 11:25 X-ray completed. Portable x-ray completed in exam room. Patient tolerated procedure jb2 well. 11:37 XRAY CXR (1 view) In Process Unspecified. EDMS 12:09 Tyler Fay, RN is Primary Nurse. sg 12:10 BIPAP Sent. hb 13:03 Naa Rahman MD is Hospitalizing Provider. ma2 13:33 Patient moved to [place] via wheelchair. vm2 14:12 Thorax Wo Con In Process Unspecified. EDMS 15:14 attempted transfer to [facility], pt was denied due to no beds, aden from [facility] bd request that we admit the pt here and reinitiate transfer after the pt has been admitted. 19:30 transfer transportation to receiving facility. sg Administered Medications: 11:07 CANCELLED (allergic): vancoMYCIN 1 grams IVPB once over 2 hrs ma2 11:20 Drug: SOLU-Medrol 125 mg Route: IVP; Site: right antecubital; sg 11:20 Drug: AtroVENT Aerosol 0.5 mg Route: Inhalation; sg 11:20 Drug: Albuterol 2.5 mg Route: Inhalation; sg 11:30 Drug: Cefepime 1 grams Route: IVPB; Rate: 200 ml/hr; Infused Over: 30 mins; Site: right sg antecubital; 11:40 Drug: AtroVENT Aerosol 0.5 mg Route: Inhalation; sg 11:40 Drug: Albuterol 2.5 mg Route: Inhalation; sg 12:00 Drug: AtroVENT Aerosol 0.5 mg Route: Inhalation; sg 12:00 Drug: Albuterol 2.5 mg Route: Inhalation; sg 12:20 Drug: NS 0.9% 500 ml Route: IV; Rate: 1 bolus; Site: right antecubital; sg 16:00 Drug: Valium 5 mg Route: IVP; Site: right antecubital; sg 17:28 Follow up: Response: No adverse reaction; Marked relief of symptoms sg 16:20 Drug: AZITHromycin 500 mg Route: IVPB; Infused Over: 1 hrs; Site: right antecubital; sg 17:20 Follow up: Response: No adverse reaction; IV Status: Completed infusion sg 17:20 Drug: Benadryl 25 mg Route: IVP; Site: right antecubital; sg 17:46 Drug: vancoMYCIN 1 grams Route: IVPB; Infused Over: 2 hrs; Site: right antecubital; Outcome: 13:04 Decision to Hospitalize by Provider. ma2 16:02 ER care complete, transfer ordered by . ma2 19:50 Patient left the ED. sg Signatures: Dispatcher [employer] EDMS Nicole Bernstein Steven, RN RN Bj Serrano jb2 Clary Ragsdale RN RN aa5 Isabela Gomez, application infrastructure engineer EKG Tat1 Alexa Gandara RN RN hb McGuire, Victoria vm2 Ester Figueroa MD MD az2 Corrections: (The following items were deleted from the chart) 12:25 11:00 Derm: Skin is dry, Skin is pale, Skin temperature is warm [facility] 18:57 11:03 Home Meds: amitriptyline 50 mg Oral tab 2 tabs once daily; [facility] 18:57 11:03 Home Meds: Cartia XT 120 mg Oral cp24; [facility] 18:57 11:03 Home Meds: clonidine HCl 0.1 mg Oral tab 3 times per day; [facility] 18:57 18:45 Home Meds: Esbriet 267 mg Oral cap 3 caps after meals; [facility] 18:57 18:45 Home Meds: hydralazine 50 mg Oral tab 1 tab 2 times per day; [facility] 18:57 18:45 Home Meds: immune globul,gamma(IgG)-sorb-IgA 0 to 50 mcg/mL intravenous every 4 sg wks; [facility] 18:57 18:45 Home Meds: lisinopril 20 mg Oral tab twice a day; [facility] 18:57 18:45 Home Meds: leflunomide 10 mg Oral tab 2 tabs once daily; [facility] 18:57 18:45 Home Meds: prednisone 10 mg Oral tab once daily; [facility] 18:57 18:45 Home Meds: Prednisone Oral; [facility] 18:57 18:45 Home Meds: propafenone 225 mg Oral tab; [facility] : 18:45 Home Meds: sulfasalazine 500 mg Oral tab twice a day; [facility] 18:57 18:45 Home Meds: Xarelto 20 mg Oral tab 1 tab once daily; [facility] 57 18:45 Home Meds: antacid/adán/lido 1:1:1 Swish and swallow 2 teaspoons by mouth 10 sg minutes before meals and every night at bedtime; [facility]
--- NOTE | 2018-06-05 13:05 | EDPHYS ---
Physician Documentation [facility] Name: Marlen Santacruz Age: 67 yrs Sex: Female : 1950 Arrival Date: 06/05/2018 Time: 10:[address] Private MD: Caleb Patel H ED Physician Ester Figueroa HPI: 06/05 11:03 This 67 yrs old Female presents to ER via Unassigned with complaints of ma2 Breathing Difficulty. 11:03 The patient has shortness of breath at rest. Onset: The symptoms/episode began/occurred ma2 gradually, 3 day(s) ago. Duration: The symptoms are chronic. Associated signs and symptoms: Pertinent positives: productive cough, Pertinent negatives: hemoptysis, numbness in extremities. Severity of symptoms: At their worst the symptoms were severe in the emergency department the symptoms are unchanged. The patient has experienced similar episodes in the past. Historical: - Allergies: 10:58 Ciprofloxacin; sg 10:58 Demerol; sg 10:58 Keflex; sg 10:58 Levaquin; sg 10:58 Sporanox; sg 10:58 Iodine; sg 10:58 Morphine; sg 10:58 Ibuprofen; sg 10:58 PENICILLINS; sg 10:58 Vancomycin; sg - Home Meds: 11:03 amlodipine 10 mg tab 1 tab once daily [Active]; Arava 20 mg Oral tab 1 tab once daily sg [Active]; Atrovent Inhl twice a day [Active]; Boniva 150 mg Oral tab 1 tab once moly [Active]; Brovana 15 mcg/2 mL inhalation nebu 2 mL 2 times per day [Active]; budesonide 0.25mg Oral CECX 2 caps twice a day [Active]; cefpodoxime 200 mg Oral tab 1 tab every 12 hours [Active]; duloxetine 60 mg Oral cpDR [Active]; Eliquis 5 mg Oral tab 1 tab 2 times per day [Active]; 18:45 dofetilide Oral 1 cap 2 times per day [Active]; Lyrica Oral 1 cap [Active]; Magnesium aa5 Oxide Oral [Active]; Mucinex 600 mg Oral Ta12 1 tab every 12 hours [Active]; Nasonex 50 mcg/actuation Nasal spry once daily [Active]; Mcdaniel 10-325 mg Oral tab [Active]; omeprazole 40 mg Oral cpDR 1 cap 2 times per day [Active]; potassium chloride 10 mEq Oral cpER 2 caps 2 times per day [Active]; sulfasalazine 500 mg Oral tab 1 tab twice a day [Active]; Tessalon Perles 100 mg Oral cap 2 caps 3 times per day for Cough [Active]; 18:56 Prednisone 80 mg Oral [Active]; Dilaudid Rectal [Active]; Xanax Oral [Active]; sg Phenergan Oral [Active]; - PMHx: 11:11 ADD/ADHD; Arthritis; Atrial Fib; COPD; Depression; GERD; Hypertension; Lung CA; Polyps sg Colon; Polyps Stomach; Staph Infection Left Great Toe; Rheumatoid Arthritis; - Social history:: Patient/guardian denies using alcohol, street drugs, The patient lives in a shelter. - Family history:: not pertinent. ROS: 11:03 Constitutional: Negative for fever, chills, and weight loss, Neck: Negative for injury, ma2 pain, and swelling. 11:03 Respiratory: Positive for cough, shortness of breath, wheezing. Exam: 11:03 Chest/axilla: Normal chest wall appearance and motion. Nontender with no deformity. ma2 No lesions are appreciated. 11:03 Constitutional: This is a well developed, well nourished patient who is awake, alert, and in no acute distress. 11:06 Constitutional: This is a well developed, well nourished patient who is awake, alert, ma2 and in no acute distress. Head/Face: Normocephalic, atraumatic. Eyes: Pupils equal round and reactive to light, extra-ocular motions intact. Lids and lashes normal. Conjunctiva and sclera are non-icteric and not injected. Cornea within normal limits. Periorbital areas with no swelling, redness, or edema. ENT: Nares patent. No nasal discharge, no septal abnormalities noted. Tympanic membranes are normal and external auditory canals are clear. Oropharynx with no redness, swelling, or masses, exudates, or evidence of obstruction, uvula midline. Mucous membranes moist. 11:06 Cardiovascular: Regular rate and rhythm with a normal S1 and S2. No gallops, murmurs, or rubs. Normal PMI, no JVD. No pulse deficits. Abdomen/GI: Soft, non-tender, with normal bowel sounds. No distension or tympany. No guarding or rebound. No evidence of tenderness throughout. Skin: Warm, dry with normal turgor. Normal color with no rashes, no lesions, and no evidence of cellulitis. Neuro: Awake and alert, GCS 15, oriented to person, place, time, and situation. Cranial nerves II-XII grossly intact. Motor strength 5/5 in all extremities. Sensory grossly intact. Cerebellar exam normal. Normal gait. 11:06 Constitutional: The patient appears anxious, in obvious distress. 11:06 Respiratory: moderate respiratory distress is noted, Breath sounds: rales, wheezing: Vital Signs: 11:00 BP 131 / 88; Pulse 80; Resp 38; Pulse Ox 87% on 4 lpm NC; Weight 115.67 kg; Pain 0/10; sg 11:02 Pulse Ox 97% on 50% BiPAP; sg 11:05 Temp 97.7; sg 12:20 BP 133 / 82; Pulse 82; Resp 30; Pulse Ox 100% on 50% BiPAP; Weight 44.32 kg; sg 17:47 BP 115 / 70; Pulse 80; Resp 27; Pulse Ox 100% on 35% BiPAP; sg 18:40 BP 100 / 89; Pulse 81 MON; Resp 20; Temp 97.6; Pulse Ox 98% on 35% BiPAP; Pain 0/10; sg 19:29 BP 151 / 83; Pulse 81; Resp 28; Pulse Ox 94% on 35% BiPAP; Pain 0/10; sg MDM: 11:01 Patient medically screened. [facility] 11:06 Differential diagnosis: Anemia Anxiety Reaction asthma, Bronchitis Chronic Obstructive ma2 Pulmonary Disease reactive airway disease. Antibiotic administration: 13:02 Data reviewed: vital signs, nurses notes. Counseling: I had a detailed discussion with ma the patient and/or guardian regarding: the historical points, exam findings, and any diagnostic results supporting the discharge/admit diagnosis, the presence of at least one elevated blood pressure reading (>120/80) during this emergency department visit, the need for further work-up and treatment in the hospital. Response to treatment: the patient's symptoms have markedly improved after treatment. 15:27 ED course: discussed with dr. fraire and dr. jordan, patient need to be admitted here [facility] then initiate transfer to [facility] again as they have no beds right now and they recommend non-emergent transfe r. 16:02 ED course: dr. jordan saw the patient, i discussed case with dr. fraire who state will [facility] review chart and further discuss with dr. jordan.. we initiate transfer to [facility] who advised that they have no beds.. so dr. jordan, hospitalist, advise to transfer to [facility] for higher level of care as she will benefit from tertiary center with services like CT surgery and oncology both not available here, she discussed plan with dr. fraire who agree with recommendation to transfer . 06/05 11:02 Order name: Blood Culture Adult (2) [facility] 06/05 11:02 Order name: BMP; Complete Time: 12:41 [facility] 06/05 11:02 Order name: CBC with Diff; Complete Time: 12:41 [facility] 06/05 11:02 Order name: Ckmb; Complete Time: 12:41 [facility] 06/05 11:02 Order name: CPK; Complete Time: 12:41 [facility] 06/05 11:02 Order name: Hepatic Function; Complete Time: 12:41 [facility] 06/05 11:02 Order name: Lipase; Complete Time: 12:41 [facility] 06/05 11:02 Order name: Magnesium; Complete Time: 12:41 [facility] 06/05 11:02 Order name: NT PRO-BNP; Complete Time: 12:41 nc06/05 11:02 Order name: PT-INR; Complete Time: 12:41 [facility] 06/05 11:02 Order name: Ptt, Activated; Complete Time: 12:41 [facility] 06/05 11:02 Order name: Troponin (emerg Dept Use Only); Complete Time: 12:41 [facility] 06/05 11:03 Order name: Influenza Screen (a \T\ B); Complete Time: 12:41 [facility] 06/05 11:50 Order name: CBC Smear Scan; Complete Time: 12:41 [facility] 06/05 11:02 Order name: XRAY CXR (1 view); Complete Time: 12:02 [facility] 06/05 11:02 Order name: EKG; Complete Time: 11:04 [facility] 06/05 11:03 Order name: BIPAP 06/05 13:02 Order name: ABG; Complete Time: 14:57 nc06/05 13:33 Order name: Thorax Wo Con; Complete Time: 14:57 EDMS 06/05 15:47 Order name: Urine Dipstick--Ancillary (enter results) em 06/05 11:02 Order name: Cardiac monitoring; Complete Time: 12:10 [facility] 06/05 11:02 Order name: EKG - Nurse/Tech; Complete Time: 12:10 [facility] 06/05 11:02 Order name: IV Saline Lock; Complete Time: 12:11 [facility] 06/05 11:02 Order name: Labs collected and sent; Complete Time: 12:11 [facility] 06/05 11:02 Order name: O2 Per Protocol; Complete Time: 12:11 [facility] 06/05 11:02 Order name: O2 Sat Monitoring; Complete Time: 12:11 nc2 Administered Medications: 11:07 CANCELLED (allergic): vancoMYCIN 1 grams IVPB once over 2 hrs nc2 11:20 Drug: SOLU-Medrol 125 mg Route: IVP; Site: right antecubital; sg 11:20 Drug: AtroVENT Aerosol 0.5 mg Route: Inhalation; sg 11:20 Drug: Albuterol 2.5 mg Route: Inhalation; sg 11:30 Drug: Cefepime 1 grams Route: IVPB; Rate: 200 ml/hr; Infused Over: 30 mins; Site: right sg antecubital; 11:40 Drug: AtroVENT Aerosol 0.5 mg Route: Inhalation; sg 11:40 Drug: Albuterol 2.5 mg Route: Inhalation; sg 12:00 Drug: AtroVENT Aerosol 0.5 mg Route: Inhalation; sg 12:00 Drug: Albuterol 2.5 mg Route: Inhalation; sg 12:20 Drug: NS 0.9% 500 ml Route: IV; Rate: 1 bolus; Site: right antecubital; sg 16:00 Drug: Valium 5 mg Route: IVP; Site: right antecubital; sg 17:28 Follow up: Response: No adverse reaction; Marked relief of symptoms sg 16:20 Drug: AZITHromycin 500 mg Route: IVPB; Infused Over: 1 hrs; Site: right antecubital; sg 17:20 Follow up: Response: No adverse reaction; IV Status: Completed infusion sg 17:20 Drug: Benadryl 25 mg Route: IVP; Site: right antecubital; sg 17:46 Drug: vancoMYCIN 1 grams Route: IVPB; Infused Over: 2 hrs; Site: right antecubital; sg Disposition: 06/05/18 16:02 Transfer ordered to [facility]. Diagnosis is Bronchopneumonia, unspecified organism. - Reason for transfer: Higher level of care. - Accepting physician is dr. harley. - Condition is Stable. - Problem is chronic. - Symptoms have worsened. Signatures: Dispatcher [employer] EDTyler Friedman RN RN Clary Ragsdale RN RN 5 Ester Figueroa MD MD nc2 Corrections: (The following items were deleted from the chart) 11:07 11:03 vancoMYCIN 1 grams IVPB once over 2 hrs ordered. ma2 ma2 16:01 13:04 Hospitalization Ordered by Naa Jordan MD for Inpatient Admission. Preliminary ma2 diagnosis is Bronchopneumonia, unspecified organism. Bed requested for Telemetry/MedSurg (Inpatient). Status is Inpatient Admission. Condition is Guarded. Problem is chronic. Symptoms have worsened. UTI on Admission? No. ma2 16:52 16:02 06/05/2018 16:02 Transfer ordered to [facility]. Diagnosis is ma2 Bronchopneumonia, unspecified organism. Reason for transfer: Higher level of care. Accepting physician is n/a. Condition is Stable. Problem is chronic. Symptoms have worsened. nc2 18:57 11:03 Home Meds: amitriptyline 50 mg Oral tab 2 tabs once daily; sg 18:57 11:03 Home Meds: Cartia XT 120 mg Oral cp24; sg 18:57 11:03 Home Meds: clonidine HCl 0.1 mg Oral tab 3 times per day; sg 18:57 18:45 Home Meds: Esbriet 267 mg Oral cap 3 caps after meals; aa5 18:57 18:45 Home Meds: hydralazine 50 mg Oral tab 1 tab 2 times per day; aa5 18:57 18:45 Home Meds: immune globul,gamma(IgG)-sorb-IgA 0 to 50 mcg/mL intravenous every 4 sg wks; aa5 18:57 18:45 Home Meds: lisinopril 20 mg Oral tab twice a day; aa5 18:57 18:45 Home Meds: leflunomide 10 mg Oral tab 2 tabs once daily; [facility] 18:57 18:45 Home Meds: prednisone 10 mg Oral tab once daily; [facility] 18:57 18:45 Home Meds: Prednisone Oral; [facility] 18:57 18:45 Home Meds: propafenone 225 mg Oral tab; [facility] 18:57 18:45 Home Meds: sulfasalazine 500 mg Oral tab twice a day; [facility] 18:57 18:45 Home Meds: Xarelto 20 mg Oral tab 1 tab once daily; [facility] 18:57 18:45 Home Meds: antacid/adán/lido 1:1:1 Swish and swallow 2 teaspoons by mouth 10 sg minutes before meals and every night at bedtime; [facility] 19:50 16:52 06/05/2018 16:02 Transfer ordered to [facility]. Diagnosis is sg Bronchopneumonia, unspecified organism. Reason for transfer: Higher level of care. Accepting physician is dr. harley. Condition is Stable. Problem is chronic. Symptoms have worsened. ma2
[2018-06-05 14:00] LABS: Arterial Blood Carboxyhemoglob 0.8 % (0-1.5); Blood O2 Saturation 97.4 % (92-98.5)
--- NOTE | 2018-06-05 14:23 | RAD REPORT ---
EXAM DESCRIPTION: CT - Thorax Wo Con - 06/05/2018 2:12 pm CLINICAL HISTORY: Pneumonia, fibrosis COMPARISON: Chest film June 05, CT chest November 2017 TECHNIQUE: Axial 5 mm thick images of the chest were obtained without IV contrast. All CT scans are performed using dose optimization technique as appropriate and may include automated exposure control or mA/KV adjustment according to patient size. FINDINGS: Chronic right apex pleural and parenchymal scarring changes are present. There is extensiv e airspace consolidation involving the majority of the right upper lobe. Air bronchograms are present . There is significant airspace consolidation throughout much of the right lower lobe and right middl e lobe is well. Again, multiple air bronchograms are identifiable. There is a small right pleural eff usion. Minimal left pleural effusion is present. There is consolidated parenchyma lateral lower left lung field with air bronchogram formation. Scattered alveolar and ground-glass opacities are present in the left upper lobe. No pneumothorax. No abnormal mediastinal or hilar masses or lymphadenopathy seen. No gross aortic or pulmonary artery finding suspected. Assessment is limited in the absence of IV contrast. No pericardial effusion. No chest wall mass or abnormal axillary lymphadenopathy. IMPRESSION: Extensive pneumonia changes throughout the right upper lobe with moderately prominent ri ght middle and right lower lobe consolidated pneumonias. Lateral left lower lobe small area consolidated pneumonia seen. Patient has scattered pneumonia christy es in the left upper lobe. Trace left-sided and small right-sided pleural effusion.
[2018-06-05] MEDS ORDERED: DIPHENHYDRAMINE 50 MG/ML VIAL ONE (15:52)
[2018-06-05] MEDS ORDERED: DIAZEPAM 10 MG/2 ML INJ SYRINGE ONE (15:52)
[2018-06-05] MEDS ORDERED: VANCOMYCIN/NS 1 gm 1 GM/250 ML BAG IVPB ONE (16:00)
[2018-06-05 19:41] LABS: Urine Blood NEGATIVE (NEG); Urine Glucose NEGATIVE (NEG); Urine Protein 2+ (NEG); Urine pH 5.5 (5.0-7.0)
[2018-06-05 20:07] VITALS: TEMP 97.6
[2018-06-05 20:09] VITALS: BP 151/83; O2SAT 94
--- NOTE | 2018-06-07 10:26 | EKG ---
Test Date: 2018-06-05 Test Time: 11:06:25 Glass Worker: JEREMIE MEASUREMENT RESULTS: Intervals: Rate: 82 LA: QRSD: 146 QT: 432 QTc: 504 [place]: P: [place]: QRS: -56 T: 88 INTERPRETIVE STATEMENTS: Ventricular-paced rhythm Atrial rhythm is fibrillation with no AV conduction Abnormal ECG Compared to ECG 05/18/2018 10:57:15 Sinus rhythm no longer present Atrial premature complex(es) no longer present ST (T wave) deviation no longer present Prolonged QT interval no longer present Electronically Signed On 06-05-18 12:36:58 CDT by Jackson Cooper
== END 2018-06-05 19:50 | disposition short-term general hospital (02) ==
LOC: ER 10:50
DX: J18.0 Bronchopneumonia, unspecified organism (principal); I10 Essential (primary) hypertension; J44.9 Chronic obstructive pulmonary disease, unspecified; I48.91 Unspecified atrial fibrillation; F90.9 Attention-deficit hyperactivity disorder, unspecified type; F32.9 Major depressive disorder, single episode, unspecified; Z79.01 Long term (current) use of anticoagulants; Z88.0 Allergy status to penicillin; Z88.1 Allergy status to other antibiotic agents; Z88.5 Allergy status to narcotic agent; Z88.6 Allergy status to analgesic agent; Z88.8 Allergy status to other drugs, medicaments and biological substances; Z85.118 Personal history of other malignant neoplasm of bronchus and lung
CPT/HCPCS: 93005; 87040 ×2; 85025; 80048; 36415; 83735; 82550; 85610; 80076; 85730; 81003; 84484; 82553; 83690; 83880; 87804 ×2; 71250; 71045; 82805; 94660; J0456; J3360; J3370; J0692; J7030; J2930; 96365; 96375; 99285